=== PATIENT | male | born 1945 | race Caucasian/White ===

== ENCOUNTER 2022-01-13 13:44 | Outpatient (CLI) | payer MEDICARE, BC, SELFPAY ==
[2022-01-13 20:39] LABS: Chloride* 104 mmol/L (96-114); Potassium* 4.5 mmol/L (3.6-5.1); Sodium* 136 mmol/L (135-149)
[2022-01-13 20:42] LABS: Carbon Dioxide* 27 mmol/L (20-32); Creatinine* 1.5 mg/dL (0.5-1.5); Estimated Glomerular Filt Rate 47 ml/min
[2022-01-13 20:43] LABS: Blood Urea Nitrogen* 33 mg/dL (7-30); Calcium* 9.1 mg/dL (8.4-10.6); Glucose* 90 mg/dL (60-115)
== END 2022-01-13 13:45 | disposition home or self-care (01) ==
LOC: NFLDREF 13:45
PROVIDERS: PCP Internal Medicine; Visit Provider Family Medicine
DX: I10 Essential (primary) hypertension (principal); M10.9 Gout, unspecified; I48.91 Unspecified atrial fibrillation
CPT/HCPCS: 80048

== ENCOUNTER 2022-02-18 10:18 | Outpatient (CLI) | payer MEDICARE, BC, SELFPAY ==
[2022-02-18 13:09] LABS: Chloride* 105 mmol/L (96-114)
[2022-02-18 13:10] LABS: Potassium* 4.8 mmol/L (3.6-5.1); Sodium* 137 mmol/L (135-149)
[2022-02-18 13:12] LABS: Alanine Aminotransferase* 15 U/L (4-50); Carbon Dioxide* 26 mmol/L (20-32); Cholesterol* 145 mg/dL (90-199); Creatinine* 1.5 mg/dL (0.5-1.5); Estimated Glomerular Filt Rate 47 ml/min
[2022-02-18 13:13] LABS: Blood Urea Nitrogen* 27 mg/dL (7-30); Calcium* 8.9 mg/dL (8.4-10.6); Glucose* 101 mg/dL (60-115); HDL Cholesterol* 48 mg/dL (>=40); LDL Cholesterol Calculated 85 mg/dL (<100); Triglycerides* 59 mg/dL (40-149)
[2022-02-18 13:42] LABS: PSA Screen* 1.52 ng/mL (0.10-4.00)
== END 2022-02-18 10:19 | disposition home or self-care (01) ==
LOC: NFLDREF 10:19
PROVIDERS: PCP Internal Medicine; Visit Provider Family Medicine
DX: Z00.00 Encounter for general adult medical examination without abnormal findings (principal); I10 Essential (primary) hypertension; N40.0 Benign prostatic hyperplasia without lower urinary tract symptoms; E78.5 Hyperlipidemia, unspecified; Z12.5 Encounter for screening for malignant neoplasm of prostate
CPT/HCPCS: 80048; 80061; 84153; 84460

== ENCOUNTER 2022-05-16 12:06 | Outpatient (CLI) | payer MEDICARE, BC, SELFPAY ==
--- OUTSIDE RECORDS SUMMARY | 2022-05-16 12:17 | XMS_ITS | Encounter Summary ---
:1945 Author Organization [facility] Address [address] [place] [address] Care Team Providers Name Role Phone Elsewhere, Pcp Primary Care Provider Unavailable Reason for Referral Outpatient (Routine) - Closed Specialty Diagnoses / Procedures Referred By Contact Refer red To Contact Diagnoses Bypass Coronary Artery Graft Status Post Renee Drummond M.D. [facility] Procedures DX Chest AP or PA and Lateral 2 Views [address] [place] [phone] Referral ID Status Reason Start Date Expiration Date Visits Requ ested Visits Authorized [id number] Closed 12/18/2021 12/18/2022 1 1 Reason for Visit Outpatient (Routine) - Closed Specialty Diagnoses / Procedures Referred By Contact Refer red To Contact Diagnoses Bypass Coronary Artery Graft Status Post Renee Drummond M.D. [facility] Procedures DX Chest AP or PA and Lateral 2 Views [address] [place] [address] Referral ID Status Reason Start Date Expiration Date Visits Requ ested Visits Authorized [id number] Closed 12/18/2021 12/18/2022 1 1 Encounter Details Date Type Department Care Team Description 03/11/2022 Hospital Encounter Department of Renee Drummond oronary Radiology, Krishan Guzmán M.D. Artery Graft Status Building, in [address] [place], [place] 200 [facility] [address] [place], [place] [phone] (Work) [phone] Social History Tobacco Use Types Packs/Day Years Used Date Smoking Tobacco: Former Smokeless Tobacco: Never Comments: Hasn't smoke since the Alcohol Use Standard Drinks/Week Comments Yes 5 (1 standard drink = 0.6 oz pure alcoho l) 6 drinks per week Alcohol Habits Answer Date Recorded How often do you have a drink containing alcohol? 2-3 times a week 11/08/2021 How many drinks containing alcohol do you have on a 3 or 4 11/08/2021 typical day when you are drinking? How often do you have six or more drinks on one Never 11/08/2021 occasion? Social Isolation Answer Date Recorded In a typical week, how many times do you Once a week 11/08/2021 talk on the phone with family, friends, or neighbors? How often do you get together with friends Three times a wee k 11/08/2021 or relatives? How often do you attend hoahaoism or mandaeism 1 to 4 times per year 11/08/2021 services? Do you belong to any clubs or organizations Yes 11/08/2021 such as hoahaoism groups, unions, fraternal or athletic groups, or school groups? How often do you attend meetings of the More than 4 times pe r year 11/08/2021 clubs or organizations you belong to? Are you now , , , 11/08/2021 , never or living with a partner? Physical Activity Answer Date Recorded On average, how many days per week do you engage in moderate to 6 days 11/08/2021 strenuous exercise (like walking fast, running, jogging, dancing, swimming, biking, or other activities that cause a light or heavy sweat)? On average, how many minutes do you engage in exercise at th is 20 min 11/08/2021 level? Stress Answer Date Recorded Do you feel stress - tense, restless, nervous, or Only a lit tle 11/08/2021 anxious, or unable to sleep at night because your mind is troubled all the time - these days? Financial Resource Strain Answer Date Recorded How hard is it for you to pay for the very basics like Not h marlena at all 11/08/2021 food, housing, medical care, and heating? Intimate Partner Violence Answer Date Recorded Within the last year, have you been afraid of your partner o r No 11/08/2021 ex-partner? Within the last year, have you been humiliated or emotionall y No 11/08/2021 abused in other ways by your partner or ex-partner? Within the last year, have you been kicked, hit, slapped, or No 11/08/2021 otherwise physically hurt by your partner or ex-partner? Within the last year, have you been raped or forced to have any No 11/08/2021 kind of sexual activity by your partner or ex-partner? Food Insecurity Answer Date Recorded Within the past 12 months, you worried that your food would Never true 11/08/2021 run out before you got money to buy more. Within the past 12 months, the food you bought just didn't N ever true 11/08/2021 last and you didn't have money to get more. Transportation Needs Answer Date Recorded In the past 12 months, has lack of transportation kept you f rom No 11/08/2021 medical appointments or from getting medications? In the past 12 months, has lack of transportation kept you f rom No 11/08/2021 meetings, work, or getting things needed for daily living? Housing Stability Answer Date Recorded In the last 12 months, was there a time when you were not ab le No 11/08/2021 to pay the mortgage or rent on time? In the last 12 months, how many places have you lived? 1 11/08/2021 In the last 12 months, was there a time when you did not hav e a No 11/08/[address] or slept in a prison (including now)? Education Answer Date Recorded What is the highest level of school you have completed or 12 th grade 11/08/2021 the highest degree you have received? Sex Assigned at Date Recorded Male 11/08/2021 12:12 PM CDT documented as of this encounter Medications at Time of Discharge Medication Sig Dispensed Refills Start Date End Date acetaminophen (TYLENOL) Take 2 tablets 0 12/09/19 22 500 mg tablet (1,000 mg total) by mouth every 6 (six) hours. aspirin 81 mg chewable Chew 81 mg daily. 0 tablet atorvastatin (LIPITOR) 40 Take 1 tablet by 0 08/27 mg tablet mouth every evening. clopidogreL (PLAVIX) 75 TAKE 1 TABLET BY 30 tablet 0 202112/08/2022 mg tablet MOUTH DAILY colchicine (COLCRYS) 0.6 TAKE ONE-HALF 21 tablet 0 12/09/19 22 12/08/2022 mg tablet TABLET BY MOUTH DAILY isosorbide mononitrate TAKE 1 TABLET BY 30 tablet 0 022 12/08/2022 (IMDUR) 30 mg 24 hr MOUTH DAILY tablet losartan (COZAAR) 100 mg Take 1 tablet (100 100 tablet 3 tablet mg total) by mouth daily. metoprolol succinate Take 25 mg by mouth 0 (TOPROL-XL) 25 mg 24 hr daily. Do not crush tablet or chew. polyethylene glycol Take 1 packet (17 g 0 022 (MIRALAX) 17 gram powder total) by mouth packet daily as needed for constipation. Dissolve each 17 g dose in 240 mLs (8 ounces) of beverage. sennosides-docusate Take 2 tablets by 0 2 sodium (SENOKOT-S) 8.6-50 mouth 2 (two) times mg per tablet a day as needed for constipation. tamsulosin (FLOMAX) 0.4 Take 0.4 mg by 0 09/06/19 17 mg 24 hr capsule mouth every evening. documented as of this encounter Plan of Treatment Not on filedocumented as of this encounter Procedures Procedure Name Priority Date/Time Associated Comments Diagnosis DX CHEST AP OR PA RAD - Routine 03/11/2022 8:15 Bypass Coronary Res ults for this AND LATERAL 2 (most inpatients AM CDT Artery Graft procedure are in VIEWS and all Status Post the results outpatients) section. documented in this encounter Results DX Chest AP or PA and Lateral 2 Views (03/11/2022 8:15 AM CDT) Anatomical Region Laterality Modality Chest, Thoracic RST LOS, Thoracic ARZ LOS, Thoracic N/A Digital Radiography FLA LOS Specimen (Source) Anatomical Collection Method Collection Time Re ceived Time Location / / Volume Laterality 03/11/2022 9:07 AM CDT Impressions 03/11/2022 9:09 AM CDT Since 12/07/2021, the tiny left apical pneumothorax has resolved. No pleural effusion on today's exam. Sternotomy with mediast inal clips. Coronary artery stenting. Mild hypertrophic changes in the spine. Convex right thora cic curve with hypertrophic degenerative changes. Narrative 03/11/2022 9:09 AM CDT EXAM: ??DX CHEST AP OR PA AND LATERAL 2 VIEWS Procedure Note Cipriano Cantrell M.D. - 03/11/2022Form atting of this note might be different from the original. EXAM: DX CHEST AP OR PA AND LATERAL 2 EWS IMPRESSION: Since 12/07/2021, the tiny left apical p neumothorax has resolved. No pleural effusion on today's exam. Sternotomy with mediast inal clips. Coronary artery stenting. Mild hypertrophic changes in the spine. Convex right thora cic curve with hypertrophic degenerative changes. Authorizing Provider Result [facility] SANDY ANGELA documented in this encounter Visit Diagnoses Diagnosis Bypass Coronary Artery Graft Status Post documented in this encounter Additional Health Concerns Assessment Noted Time PHQ-9 Depression Total Score: 10 11/27/2021 1:28 PM CD T documented as of this encounter Care Teams Audio/Visual Manager Relationship Specialty Start Date End Date Elsewhere, Pcp PCP - General 12/05/21 documented as of this encounter
--- OUTSIDE RECORDS SUMMARY | 2022-05-16 12:17 | XMS_ITS | Encounter Summary ---
:1945 Author Organization [facility] Address [address] [place] [address] Care Team Providers Name Role Phone Elsewhere, Pcp Primary Care Provider Unavailable Encounter Details Date Type Department Care Team Description 12/12/2021 Clinical Communication Department of Alissa Mathews Cardiovascular Surgery Dorothy Whaley, in [facility]. [address] [place] [address] [address] [place], [place] [address] [place], [place] [phone] Social History Tobacco Use Types Packs/Day Years Used Date Smoking Tobacco: Former Smokeless Tobacco: Never Alcohol Use Standard Drinks/Week Comments Yes 5 [...] or relatives? How often do you attend jew or amish 1 to 4 times per year 11/08/2021 services? Do you belong to any clubs or organizations Yes 11/08/2021 such as jew groups, unions, fraternal or athletic groups, or [...] place to sleep or slept in a long term (including now)? Education Answer Date Recorded What is the highest level of school you have completed or 12 th grade 11/08/2021 the highest degree you have received? Sex Assigned at Date Recorded Male 11/08/2021 12:12 PM CDT documented as of this encounter Miscellaneous Notes Telephone Encounter - Alissa Mathews P.A.-C., M.S. - 12/12/2021 6:02 PM CDT [id number] PHONE VISIT A phone call care discussion in the setting of the national COVID 19 pandemic was completed consistent with [facility] institutional direction. NAME: Angel Doran : 76 y.o. SUBJECTIVE REASON FOR CALL Palpitations HPI Mr. Angel Doran is a 76 y.o. male s/p coronary artery bypass grafting with Dr. Wiggins on 12/03/21. Comorbidities include: coronary artery disease, hypertension, hyperlipidemia, CKD, former smoker He contacted the medical scientist of Dr. Wiggins wanting to discuss his pulse readings. Of note, he had experienced post-operative atrial fibrillation during his hospitalization and was started on amiodarone. He did convert to SR at the time of dismissal and was sent home with an amiodarone taper. Mr. Doran was anticoagulated with aspirin and plavix, it was decided against further antic oagulation with a DOAC. 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 Continue taking amiodarone taper 2. Keep PCP appointment on 12/13 3. Recommend further rhythm surveillance (with potential Holter monitoring). 4. Recommend starting DOAC and stopping ASA therapy; patient would then need to complete three months of plavix therapy while on the DOAC and then he would switch back to ASA. DOAC length to be determined based on prognosis of atrial fibrillation occurrence. 15 minutes were spent in care discussion and care coordination. Alissa Mathews P.A.-C., M.S. 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
--- OUTSIDE RECORDS SUMMARY | 2022-05-16 12:17 | XMS_ITS | Encounter Summary ---
:1945 Author Organization [facility] Address [address] [place] [address] Care Team Providers Name Role Phone Elsewhere, Pcp Primary Care Provider Unavailable Reason for Visit Reason Comments Pre-visit Intake Encounter Details Date Type Department Care Team Description 03/07/2022 Clinical Communication Visit Review in Pr e-visit Intake [place], [place] [address] [place] [address] Social History Tobacco Use Types Packs/Day Years Used Date Smoking Tobacco: Former Smokeless Tobacco: Never Tobacco Cessation: Counseling Given: Not Answered Comments: Hasn't smoke since the Alcohol Use [...] or relatives? How often do you attend quaker or temple 1 to 4 times per year 11/08/2021 services? Do you belong to any clubs or organizations Yes 11/08/2021 such as quaker groups, unions, fraternal or athletic groups, or [...] minutes do you engage in exercise at is 20 min 11/08/2021 level? Stress Answer [...] place to sleep or slept in a custodial (including now)? Education Answer Date Recorded What is the highest level of school you have completed or 12 th grade 11/08/2021 the highest degree you have received? Sex Assigned at Date Recorded Male 11/08/2021 12:12 PM CDT documented as of this encounter Plan of Treatment Not on filedocumented as of this encounter Visit Diagnoses Not on filedocumented in this encounter Additional Health Concerns Assessment Noted Time PHQ-9 Depression Total Score: 10 11/27/2021 1:28 PM CD T documented as of this encounter Care Teams Crew Director Relationship Specialty Start Date End Date Elsewhere, Pcp PCP - General 12/05/21 documented as of this encounter
--- OUTSIDE RECORDS SUMMARY | 2022-05-16 12:17 | XMS_ITS | Encounter Summary ---
:1945 Author Organization [facility] Address [address] [place] [address] Care Team Providers Name Role Phone Elsewhere, Pcp Primary Care Provider Unavailable Reason for Visit Reason Comments Testing Encounter Details Date Type Department Care Team Description 12/17/2021 Clinical Communication Department of Renee Drummond Cardiovascular Medicine Deja Guzmán in [facility] 200 [facility] [address] [place] [phone] Social History Tobacco Use Types Packs/Day Years [...] or relatives? How often do you attend yazidi or episcopal 1 to 4 times per year 11/08/2021 services? Do you belong to any clubs or organizations Yes 11/08/2021 such as yazidi groups, unions, fraternal or athletic groups, or [...] place to sleep or slept in a long-term (including now)? Education Answer Date Recorded What is the highest level of school you have completed or 12 th grade 11/08/2021 the highest degree you have received? Sex Assigned at Date Recorded Male 11/08/2021 12:12 PM CDT documented as of this encounter Miscellaneous Notes Telephone Encounter - Heather Richards - 12/17/2021 10:48 AM CDT Good morning, Scheduled pt to see you 03/11. This visit will be his 3 month post-cardiac surgery visit. What testing would you like ordered for pt? Thank you, Heather documented in this encounter Plan of Treatment Not on filedocumented as of this encounter Visit Diagnoses Not on filedocumented in this encounter Additional Health Concerns Assessment Noted Time PHQ-9 Depression Total Score: 10 11/27/2021 1:28 PM CD T documented as of this encounter Care Teams Parcel Carrier Relationship Specialty Start Date End Date Elsewhere, Pcp PCP - General 12/05/21 documented as of this encounter
--- OUTSIDE RECORDS SUMMARY | 2022-05-16 12:17 | XMS_ITS | Encounter Summary ---
:1945 Author Organization [facility] Address [address] [place] [address] Care Team Providers Name Role Phone Elsewhere, Pcp Primary Care Provider Unavailable Reason for Visit Reason Comments Post Hospital Follow-up Encounter Details Date Type Department Care Team Description 01/14/2022 Clinical Department of Dario Wiggins [facility] Communication Cardiovascular Surgery Alesia Short Follow-up in [place] [id number] [place] [phone] Social History Tobacco Use Types Packs/Day Years [...] or relatives? How often do you attend sabianist or rastafarian 1 to 4 times per year 11/08/2021 services? Do you belong to any clubs or organizations Yes 11/08/2021 such as sabianist groups, unions, fraternal or athletic groups, or [...] place to sleep or slept in a senior living (including now)? Education Answer Date Recorded What is the highest level of school you have completed or 12 th grade 11/08/2021 the highest degree you have received? Sex Assigned at Date Recorded Male 11/08/2021 12:12 PM CDT documented as of this encounter Miscellaneous Notes Telephone Encounter - Tee Mitchell - 01/14/2022 12:01 PM CDT Angel Doran was called 01/14/22 for the 30 day post cardiac surgery follow-up. Per the patient report, there was no readmissions or procedures that took place within 30 days of dismissal. documented in this encounter Plan of Treatment Not on filedocumented as of this encounter Visit Diagnoses Not on filedocumented in this encounter Additional Health Concerns Assessment Noted Time PHQ-9 Depression Total Score: 10 11/27/2021 1:28 PM CD T documented as of this encounter Care Teams Ground School Instructor Relationship Specialty Start Date End Date Elsewhere, Pcp PCP - General 12/05/21 documented as of this encounter
--- OUTSIDE RECORDS SUMMARY | 2022-05-16 12:17 | XMS_ITS | Encounter Summary ---
:1945 Author Organization [facility] Address [address] [place] [address] Care Team Providers Name Role Phone Elsewhere, Pcp Primary Care Provider Unavailable Encounter Details Date Type Department Care Team Description 01/15/2022 Clinical Communication Department of Brisa Moody Cardiovascular Surgery in , R.N . [place], [place] [address] [facility] [address] [place] [phone] Social History Tobacco Use Types Packs/Day Years [...] or relatives? How often do you attend religion or yazidi 1 to 4 times per year 11/08/2021 services? Do you belong to any clubs or organizations Yes 11/08/2021 such as religion groups, unions, fraternal or athletic groups, or [...] place to sleep or slept in a assisted (including now)? Education Answer Date Recorded What is the highest level of school you have completed or 12 th grade 11/08/2021 the highest degree you have received? Sex Assigned at Date Recorded Male 11/08/2021 12:12 PM CDT documented as of this encounter Miscellaneous Notes Telephone Encounter - Brisa Moody R.N. - 01/15/2022 9:48 AM CDT ----- Message from Mira Dacosta APRN, C.N.P., D.N.P. sent at 01/14/2022 2:56 PM CDT ----- Regarding: FW: Patient has medical questions Can someone please call him and review recovery instructions for golfing, etc... Thank you so much!! ----- Message ----- From: Tee Mitchell Sent: 01/14/2022 12:05 PM CDT To: [facility], # Subject: Patient has medical questions Please contact the patient regarding further medical questions/concerns that I was unable to answer during the 30 day post cardiac surgery follow-up phone call. Mr. Doran is wondering the timeframe of when he can start golfing, performing pushups and chin ups, etc. post surgery. Please call patient to discuss. Tee Mazariegos documented in this encounter Plan of Treatment Not on filedocumented as of this encounter Visit Diagnoses Not on filedocumented in this encounter Additional Health Concerns Assessment Noted Time PHQ-9 Depression Total Score: 10 11/27/2021 1:28 PM CD T documented as of this encounter Care Teams Prepress Operator Relationship Specialty Start Date End Date Elsewhere, Pcp PCP - General 12/05/21 documented as of this encounter
--- OUTSIDE RECORDS SUMMARY | 2022-05-16 12:17 | XMS_ITS | Encounter Summary ---
:1945 Author Organization [facility] Address [address] [place] [address] Care Team Providers Name Role Phone Elsewhere, Pcp Primary Care Provider Unavailable Encounter Details Date Type Department Care Team Description 03/11/2022 Hospital Encounter Department of Renee Drummond oronary Laboratory Medicine Alesia Guzmán Artery Graft Status and Pathology, [address] [place] [address] in [place], [place] [address] [place] [address] [place], [place] (Work) [phone] [phone] Social History Tobacco Use Types Packs/Day Years [...] or relatives? How often do you attend worship or hindu 1 to 4 times per year 11/08/2021 services? Do you belong to any clubs or organizations Yes 11/08/2021 such as worship groups, unions, fraternal or athletic groups, or school groups? How often do you attend meetings of the More than 4 times [facility] year 11/08/2021 clubs or organizations you belong [...] place to sleep or slept in a residential (including now)? Education Answer Date Recorded What [...] MOUTH DAILY colchicine (COLCRYS) 0.6 TAKE ONE-HALF TABLET 21 tablet 0 0 12/08/2021 12/08/2022 mg tablet BY MOUTH DAILY isosorbide mononitrate TAKE 1 TABLET BY 30 tablet 0 022 12/08/2022 (IMDUR) 30 mg 24 hr MOUTH DAILY tablet metoprolol succinate Take 25 mg by mouth [...] tamsulosin (FLOMAX) 0.4 Take 0.4 mg by mouth 0 mg 24 hr capsule every evening. documented as of this encounter Plan of Treatment Not on filedocumented as of this encounter Procedures Procedure Name Priority Date/Time Associated Comments Diagnosis LIPID PANEL, S Routine 03/11/2022 8:01 AM Bypass Coronary Resu lts for this CDT Artery Graft Status procedur e are in Post the results section. CBC WITH DIFFERENTIAL, Routine 03/11/2022 8:01 AM Bypass Coron sharon Results for this B CDT Artery Graft Status procedur e are in Post the results section. COMPREHENSIVE Routine 03/11/2022 8:01 AM Bypass Coronary Resul ts for this METABOLIC PANEL, S/P CDT Artery Graft Status procedure are in Post the results section. documented in this encounter Results (ABNORMAL) Comprehensive Metabolic Panel (03/11/2022 8:01 AM CDT) Analysis Performed At Patho logist Time Signature Potassium, S 4.7 3.6 - 5.2 03/11/2022 DTL mmol/L 9:00 AM CDT Sodium, S 142 135 - 145 03/11/2022 DTL mmol/L 9:00 AM CDT Chloride, S 106 98 - 107 03/11/2022 DTL mmol/L 9:00 AM CDT Bicarbonate, S 27 22 - 29 03/11/2022 DTL mmol/L 9:00 AM CDT Anion Gap 9 7 - 15 03/11/2022 DTL 9:00 AM CDT BUN (Blood Urea 28 (H) 8 - 24 03/11/2022 DTL Nitrogen), S mg/dL 9:00 AM CDT Creatinine 1.83 (H) 0.74 - 03/11/2022 DTL 1.35 mg/dL 9:00 AM CDT Estimated GFR 37 (L) >=60 03/11/2022 DTL (eGFR) mL/min/BSA 9:00 AM CDT Comment: Estimated GFR calculated using the 2020 CKD_EPI creatinine equation. Calcium, Total, S 9.1 8.8 - 10.2 mg/dL 03/11/2022 9:00 AM CDT DTL Glucose, S 85 70 - 140 mg/dL 03/11/2022 9:00 AM CDT D TL Protein, Total, S 5.9 (L) 6.3 - 7.9 g/dL 03/11/2022 9:00 A M CDT DTL Albumin, S 4.1 3.5 - 5.0 g/dL 03/11/2022 9:00 AM CDT D TL Aspartate Aminotransferase 18 8 - 48 U/L 03/11/2022 9 :00 AM CDT DTL (AST), S Alkaline Phosphatase, S 93 40 - 129 U/L 03/11/2022 9: 00 AM CDT DTL Alanine Aminotransferase 16 7 - 55 U/L 03/11/2022 9:0 0 AM CDT DTL (ALT), S Bilirubin, Total, S 0.4 <=1.2 mg/dL 03/11/2022 9:00 AM CDT DTL Specimen Anatomical Collection Method Collection Time Receive d Time (Source) Location / / Volume Laterality Blood (Blood, 03/11/2022 8:01 AM 03/11/20 8:39 Venous) CDT AM CDT Renee Drummond M.D. LAB BLOOD ADD-ON Performing Organization Address City/State/[facility] Code Phon e Number [facility] - [address] [place] [address] [phone] [employer] [place] [employer] [facility] [facility] [place] [address] Laboratories-[address] CBC with Differential, Blood (03/11/2022 8:01 AM CDT) P athologist Signature Hemoglobin 13.4 13.2 - 03/11/2022 DTL 16.6 g/dL 8:48 AM CDT Hematocrit 41.8 38.3 - 03/11/2022 DTL 48.6 % 8:48 AM CDT Erythrocytes 4.58 4.35 - 03/11/2022 DTL 5.65 8:48 AM CDT x10(12)/L MCV 91.3 78.2 - 03/11/2022 DTL 97.9 fL 8:48 AM CDT RBC Distrib Width 14.0 11.8 - 03/11/2022 DTL 14.5 % 8:48 AM CDT Platelet Count 255 135 - 317 03/11/2022 DTL x10(9)/L 8:48 AM CDT Leukocytes 5.5 3.4 - 9.6 03/11/2022 DTL x10(9)/L 8:48 AM CDT Neutrophils 3.30 1.56 - 03/11/2022 DTL 6.45 8:48 AM CDT x10(9)/L Lymphocytes 1.35 0.95 - 03/11/2022 DTL 3.07 8:48 AM CDT x10(9)/L Monocytes 0.57 0.26 - 03/11/2022 DTL 0.81 8:48 AM CDT x10(9)/L Eosinophils 0.21 0.03 - 03/11/2022 DTL 0.48 8:48 AM CDT x10(9)/L Basophils 0.06 0.01 - 03/11/2022 DTL 0.08 8:48 AM CDT x10(9)/L Specimen Anatomical Collection Method Collection Time Receive d Time (Source) Location / / Volume Laterality Blood (Blood, 03/11/2022 8:01 AM 03/11/20 8:25 Venous) CDT AM CDT Renee Drummond M.D. LAB BLOOD ADD-ON Performing Organization Address City/State/ZIP Code Phon e Number [facility] - [address] [place] [phone] [employer] [facility] [facility] [place] [address] Laboratories-[facility] 200 [facility] Lipid Panel (03/11/2022 8:01 AM CDT) P athologist Signature Triglycerides 89 mg/dL 03/11/2022 DTL 9:00 AM CDT Comment: ----REFERENCE VALUE---- Normal: <150 mg/dL Borderline High: 150-199 mg/dL High: 200-499 mg/dL Very High: > or =500 mg/dL Cholesterol, Total 141 mg/dL 03/11/2022 9:00 AM CD T DTL Comment: ----REFERENCE VALUE---- Desirable: < 200 mg/dL Borderline High: 200 - 239 mg/dL High: > or = 240 mg/dL Cholesterol, LDL, Calculated 73 mg/dL 03/11/2022 9:00 AM CDT DTL Comment: ----REFERENCE VALUE---- Desirable: <100 mg/dL Above Desirable: 100-129 mg/dL Borderline High: 130-159 mg/dL High: 160-189 mg/dL Very High: >=190 mg/dL ----ADDITIONAL INFORMATION---- LDL cholesterol calculated using the Nogueira/NIH equation. Cholesterol, HDL, S 51 >=40 mg/dL 03/11/2022 9:00 AM CDT DTL Cholesterol, Non-HDL, Calculated 90 mg/dL 9:00 AM CDT DTL Comment: ----REFERENCE VALUE---- Desirable: <130 mg/dL Above Desirable: 130-159 mg/dL Borderline High: 160-189 mg/dL High: 190-219 mg/dL Very High: > or =220 mg/dL Fasting (8 HR or more) No 03/11/2022 8:39 A M CDT DTL Specimen Anatomical Collection Method Collection Time Receive d Time (Source) Location / / Volume Laterality Blood (Blood, 03/11/2022 8:01 AM 03/11/20 8:39 Venous) CDT AM CDT Renee Drummond M.D. LAB BLOOD ADD-ON Performing Organization Address City/State/ZIP Code Phon e Number [facility] - [facility] [place], [place] [phone] [employer] [facility] [place] [address] Laboratories-[facility] 200 [facility] documented in this encounter Visit Diagnoses Diagnosis Bypass Coronary Artery Graft Status Post documented in this encounter Additional Health Concerns Assessment Noted Time PHQ-9 Depression Total Score: 10 11/27/2021 1:28 PM CD T documented as of this encounter Care Teams Senior Functional Analyst Relationship Specialty Start Date End Date Elsewhere, Pcp PCP - General 12/05/21 documented as of this encounter
--- OUTSIDE RECORDS SUMMARY | 2022-05-16 12:17 | XMS_ITS | Encounter Summary ---
:1945 Author Organization [facility] Address [address] [place] [id number] Care Team Providers Name Role Phone Elsewhere, Pcp Primary Care Provider Unavailable Reason for Visit Reason Comments [facility] communication Encounter Details Date Type Department Care Team Description 03/26/2022 Clinical Department of Renee Drummond RX Communication Cardiovascular Alesia Guzmán (communication) Medicine in [place] [address] [facility] [phone] Social History Tobacco Use Types Packs/Day Years [...] or relatives? How often do you attend shinto or temple 1 to 4 times per year 11/08/2021 services? Do you belong to any clubs or organizations Yes 11/08/2021 such as shinto groups, unions, fraternal or athletic groups, or school groups? How often do you attend meetings of the More than 4 times [facility] year 11/08/2021 clubs or organizations you belong [...] place to sleep or slept in a skilled nursing (including now)? Education Answer Date Recorded What is the highest level of school you have completed or 12 th grade 11/08/2021 the highest degree you have received? Sex Assigned at Date Recorded Male 11/08/2021 12:12 PM CDT documented as of this encounter Miscellaneous Notes Telephone Encounter - Destinee Thompson R.N. - 03/27/2022 3:22 PM CDT T'd up med for Dr. Drummond Telephone Encounter - Hanna Nolasco - 03/26/2022 9:00 AM CDT SUBJECTIVE CHIEF COMPLAINT / REASON FOR CALL [facility] (communication) Contacts Type Contact Phone/Fax 03/26/2022 09:00 AM CDT Phone (Incoming) Angel Doran (Self) [phone] (H) Patient expects communication via portal: No Valid authorization on file: Yes Medication Management Questions to be answered: He was in to see Dr. Drummond on March [address] Drummond wanted him to keep taking the Zetia but did not give a new RX. Patient is requesting a new RX for the Zetia Medication/dose: Zetia 10 mg, 1 a day Pharmacy clarification: [facility] in [place] documented in this encounter Plan of Treatment Not on filedocumented as of this encounter Visit Diagnoses Not on filedocumented in this encounter Additional Health Concerns Assessment Noted Time PHQ-9 Depression Total Score: 10 11/27/2021 1:28 PM CD T documented as of this encounter Care Teams Vp Of Digital Marketing Relationship Specialty Start Date End Date Elsewhere, Pcp PCP - General 12/05/21 documented as of this encounter
--- OUTSIDE RECORDS SUMMARY | 2022-05-16 12:17 | XMS_ITS | Encounter Summary ---
:1945 Author Organization [facility] Address [address] [place] [address] Care Team Providers Name Role Phone Elsewhere, Pcp Primary Care Provider Unavailable Encounter Details Date Type Department Care Team Description 12/12/2021 Clinical Communication Department of Dario Wiggins Cardiovascular Surgery Allan Joseph [place], [place] [address] [facility] [address] [place] [id number] [phone] Social History Tobacco Use Types Packs/Day Years [...] or relatives? How often do you attend anglican or buddhism 1 to 4 times per year 11/08/2021 services? Do you belong to any clubs or organizations Yes 11/08/2021 such as anglican groups, unions, fraternal or athletic groups, or school groups? How often do you attend meetings of the More than 4 times r year 11/08/2021 clubs or organizations you [...] to sleep or slept in a senior care (including now)? Education Answer Date Recorded What is the highest level of school you have completed or 12 th grade 11/08/2021 the highest degree you have received? Sex Assigned at Date Recorded Male 11/08/2021 12:12 PM CDT documented as of this encounter Miscellaneous Notes Telephone Encounter - Eva Banerjee - 12/12/2021 4:24 PM CDT Patient phoned in and would like to sepak to someone from the team regarding his pulse. He states that it is skipping. Please phone him at [phone] documented in this encounter Plan of Treatment Not on filedocumented as of this encounter Visit Diagnoses Not on filedocumented in this encounter Additional Health Concerns Assessment Noted Time PHQ-9 Depression Total Score: 10 11/27/2021 1:28 PM CD T documented as of this encounter Care Teams Clinical Nursing Intern Relationship Specialty Start Date End Date Elsewhere, Pcp PCP - General 12/05/21 documented as of this encounter
--- OUTSIDE RECORDS SUMMARY | 2022-05-16 12:17 | XMS_ITS | Clinical Summary ---
:1945 Author Organization [facility] Address [address] [place] [address] Care Team Providers Name Role Phone Elsewhere, Pcp Primary Care Provider Unavailable Source Comments Patient records contain information from all sites at [facility]. For routine questions regarding patient records, call [phone] during business hours, M-F 8:00 AM - 5:00 PM Central Time. Record requests for emergency care only can be directed to [phone] at any time.[facility] Allergies No known active allergies Medications Medication Sig Dispensed Refills Start Date End Date Status atorvastatin (LIPITOR) Take 1 tablet by 0 09/05/2016 Active 40 mg tablet mouth every evening. tamsulosin (FLOMAX) 0.4 Take 0.4 mg by 0 09/05/2016 Active mg 24 hr capsule mouth every evening. aspirin 81 mg chewable Chew 81 mg daily. 0 Active tablet acetaminophen (TYLENOL) Take 2 tablets 0 12/08/2021 Active 500 mg tablet (1,000 mg total) by mouth every 6 (six) hours. Additional Information Patient taking differently: 1,000 mg oral Every 6 hours PRN, Reported on 03/07/2022 polyethylene glycol Take 1 packet (17 g 0 12/08/2021 Active (MIRALAX) 17 gram total) by mouth daily powder packet as needed for constipation. Dissolve each 17 g dose in 240 mLs (8 ounces) of beverage. sennosides-docusate Take 2 tablets by mouth 0 2021 Active sodium (SENOKOT-S) 2 (two) times a day as 8.6-50 mg per tablet needed for constipation. metoprolol succinate Take 25 mg by mouth 0 Active (TOPROL-XL) 25 mg 24 daily. Do not crush or hr tablet chew. losartan (COZAAR) 100 Take 1 tablet (100 mg 100 tablet 3 03/11 Active mg tablet total) by mouth daily. ezetimibe (ZETIA) 10 Take 1 tablet (10 mg 90 tablet 3 03/27/20 22 Active mg tablet total) by mouth daily. 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 09/2005 Angiogram at [place] left main 20% left anterior descending 80% stent took it down to 40%; distal 20% circumflex 20% Lightheadedness 11/13/2021 Other Chest Pain 11/13/2021 Fatigue 11/13/2021 Coronary Artery Disease (Unspecified) 01/28/2016 Overview: Coronary Artery Disease (CAD) NOS Hypertension 01/28/2016 Overview: Hypertension (HTN) NOS Polyp Colon 05/05/2008 Overview: Formatting of this note might be differe nt from the original. Next colonoscopy 2010 Rhinitis Chronic 07/21/2007 Hypertension NOS 10/18/2002 Coronary Artery Disease With Stable Angina 10/18/2002 Hyperlipidemia On Treatment 10/18/2002 Resolved Problems Problem Noted Date Resolved Date Retention Urinary 12/08/2021 12/08/2021 Preoperative Examination Cardiovascular 11/13/2021 12/05/2021 Encounters Date Type Specialty Care Team Description 03/27/2022 Refill Cardiovascular Destinee Thompson Refill Disease L, R.N. 03/26/2022 Clinical Cardiovascular Renee Drummond RX Communication Disease Alesia Guzmán (communication ) 03/11/2022 Office Visit Cardiovascular Renee Drummondot ic [facility] [place] Coronary Artery Without Angina Pectoris (Primary Dx); Disease Alesia Guzmán Bypass Coronary Artery Graft Status Post; Chronic Kidney Disease (CKD), Stage 3a Glomerular Filtration Rate (GFR) 45 To 59 (HCC); Hyperlipidemia On Treatment; Hypertension An d Chronic Kidney Disease Stage 4 (HCC) 03/11/2022 Hospital Encounter Radiology Renee Drummond Bypass Co chris Guzmán M.D. Artery Graft St [facility] 03/11/2022 Hospital Encounter Laboratory Medicine Renee Drummond By pass Coronary Alesia Guzmán Artery Graft [facility] Post 03/07/2022 Clinical Admitting/Central Pre-visit Intake Communication Scheduling from Last 3 Months Immunizations Name Administration Dates Next Due Influenza Split 04/29/2011, 04/08/2006 PPSV23 04/08/2006 Family History Medical History Relation Name Comments Hypertension Father Jun Doran Arthritis Mother Thang Costello Asthma Mother Thang Costello Rheum arthritis Mother Thang Costello Transient ischemic attack Mother Thang Costello Relation Name Status Comments Father Jun Doran Mother Thang Costello Social History Tobacco Use Types Packs/Day Years Used Date Smoking Tobacco: Former Smokeless Tobacco: Never Tobacco Cessation: Counseling Given: Not Answered Comments: Hasn't smoke since the 1960s Alcohol Use Standard Drinks/Week Comments Yes 5 [...] or relatives? How often do you attend mormonism or islam 1 to 4 times per year 11/08/2021 services? Do you belong to any clubs or organizations Yes 11/08/2021 such as mormonism groups, unions, fraternal or athletic groups, or [...] place to sleep or slept in a [facility] (including now)? Education Answer Date Recorded What is the highest level of school you have completed or 12 th grade 11/08/2021 the highest degree you have received? Sex Assigned at Date Recorded Male 11/08/2021 12:12 PM CDT Last Filed Vital Signs Vital Sign Reading Time Taken Comments Blood Pressure 188/93 03/11/2022 10:38 AM CDT Pulse 46 03/11/2022 10:38 AM CDT Temperature 36.6 ??C (97.9 ??F) 12/08/2021 11:00 AM CDT Respiratory Rate 18 12/08/2021 11:00 AM CDT Oxygen Saturation 98% 12/08/2021 11:00 AM CDT Inhaled Oxygen Concentration - - Weight 89.5 kg (197 lb 6.8 oz) 03/11/2022 10:38 AM CDT Height 181.8 cm (5' 11.58) 03/11/2022 10:38 AM CDT Body Mass Index 27.09 03/11/2022 10:38 AM CDT Plan of Treatment Health Maintenance Due Date Last Done Comments CT Colonography 1945 Cologuard 1945 Hepatitis C Screening 1945 Colonoscopy 02/28/2016 02/27/2011 (Performed elsewhere) Colorectal Cancer Surveillance 02/28/2016 COVID-19 Vaccine (5 - Booster for 01/09/2022 11/14/2021, , Pfizer series) 09/04/2020, Additional history exists Office Visit for Blood Pressure 06/10/2022 03/11/2022 Check / Re-check Creatinine Level 03/11/2023 03/11/2022, 12/08/2021, 12/07/2021, Additional history exists Potassium Level 03/11/2023 03/11/2022, 12/08/2021, 12/07/2021, Additional history exists Sodium Level 03/11/2023 03/11/2022, 12/08/2021, 12/07/2021, Additional history exists DTaP,Tdap,and Td Vaccines (2 - Td 03/28/2023 03/28/2013, , or Tdap) 07/21/2007 Pneumococcal vaccine (65+ years) Completed 02/08/2020, , 04/08/2006, Additional history exists Zoster Vaccines Completed 02/08/2020, 08/06/2019, 05/19/2007 Depression Screening (Annual Completed 11/27/2021 PHQ-2) Fall Risk Screen (Annual) Completed 12/03/2021 Influenza Vaccine Completed 04/03/2022, 04/10/2021, 04/07/2019, Additional history exists Medical Devices Implanted Type Area Tectonophysicist Device Shelf Model / Identifier Expiration Date Ser ial / Lot Cypher Stent 3.5 X 28 Rx - [id number] Cardiac Cordis Implanted: Qty: 1 on 10/02/2005 Stent Description: Device Tectonophysicist - Cordi s Joselito. Device Status Text - [id number]. Cbl Cls Zipfix Tss Strnl Ndl - [id number] Hardware e.g. Bonilla rnum DepApakau [id number] / Implanted: Qty: 1 on 12/03/2021 by Lance Aragon M.D. at [facility] pins/screws/rods / Procedures Procedure Name Priority Date/Time Associated Comments Diagnosis ECG Routine 03/11/2022 9:18 Bypass Coronary Results f or AM CDT Artery Graft this procedure Status Post are in the results section. DX CHEST AP OR PA RAD - Routine 03/11/2022 8:15 Bypass Coronary Res ults for AND LATERAL 2 VIEWS (most inpatients AM CDT Artery Graft this procedure and all Status Post are in the outpatients) results section. COMPREHENSIVE Routine 03/11/2022 8:01 Bypass Coronary Results for METABOLIC PANEL, S/P AM CDT Artery Graft this pr ocedure Status Post are in the results section. CBC WITH Routine 03/11/2022 8:01 Bypass Coronary Results f or DIFFERENTIAL, B AM CDT Artery Graft this procedu re Status Post are in the results section. LIPID PANEL, S Routine 03/11/2022 8:01 Bypass Coronary Results for AM CDT Artery Graft this procedure Status Post are in the results section. from Last 3 Months Results ECG 12 Lead (03/11/2022 9:18 AM CDT) [facility] Method Time Signature Ventricular 52 BPM MUSE Rate ECG/Min ID Interval 184 ms MUSE QRSD Interval 96 ms MUSE QT Interval 500 ms MUSE QTC Interval 465 ms MUSE P [place] 47 degrees MUSE R [place] 48 degrees MUSE T Wave [place] -63 degrees MUSE CODED Atrial MUSE DIAGNOSIS fibrillation Specimen Anatomical Collection Method Collection Time Receive d Time (Source) Location / / Volume Laterality 03/11/2022 9:18 AM 2 9:25 CDT AM CDT Impressions MUSE - 03/11/2022 9:25 AM CDT Sinus bradycardia Premature atrial complexes Nonspecific T wave abnormality When compared with ECG of 07-DEC-2021 05 :29, Sinus rhythm has replaced Atrial fibrill ation Reviewed by RUSH Echols Narrative This result has an attachment that is no t available. Procedure Note Gennaro Young M.D. - 03/11/2022Fo rmatting of this note might be different from the original. IMPRESSION: Sinus bradycardia Premature atrial complexes Nonspecific T wave abnormality When compared with ECG of 07-DEC-2021 05 :29, Sinus rhythm has replaced Atrial fibrill ation Reviewed by RUSH Echols Renee Drummond M.D. ECG ORDERABLES Performing Organization Address City/State/ZIP Code Phon e Number MUSE MUSE NA DX Chest AP or PA and Lateral [...] thora cic curve with hypertrophic degenerative changes. [facility] Lipid Panel (03/11/2022 8:01 AM CDT) athologist Signature Triglycerides 89 mg/dL 03/11/2022 DTL [...] CDT DTL Cholesterol, Non-HDL, Calculated 90 mg/dL 022 9:00 AM CDT DTL Comment: ----REFERENCE VALUE---- [...] Organization Address City/State/ZIP Code Phon e Number [facility] - [address] [place] [address] [address] [place] [address] Laboratories-[address] CBC with Differential, Blood (03/11/2022 8:01 [...] M.D. LAB BLOOD ADD-ON Performing Organization Address City/State/[facility] Code Phon e Number [facility] - [address] [place] [address] [address] [place] [address] Laboratories-[facility] [place] [address] [facility] (ABNORMAL) Comprehensive Metabolic Panel (03/11/2022 8:01 AM [...] AM 03/11/20 8:39 Venous) CDT AM CDT Authorizing Provider Result Yayo Drummond M.D. LAB BLOOD ADD-ON Performing Organization Address City/State/ZIP Code Phon e Number [facility] - [address] [place], [place] [address] [facility] [place] [address] Laboratories-[facility] [place] [address] from Last 3 Months Insurance Payer Benefit Plan Subscriber ID Effective Phone Address Typ e / Group Dates MEDICARE MEDICARE A [id number] 2008-Prese [address] [place] [address] [facility] [id number] 2016-Prese [phone] [address] Indemnity [facility]UE [facility] A nt [phone] [place] [address] (Work) [phone] Advance Directives For more information, please contact: [phone] Latest Code Status on File Code Status Date Activated Date Inactivated Comments Full Code 12/03/2021 3:24 PM 12/08/2021 2:05 PM Question Answer Comments Full Code: Discussed Code Status History Code Status Date Activated Date Inactivated Comments Full Code 12/03/2021 7:03 AM 12/03/2021 3:24 PM Question Answer Comments Full Code: Discussed Care Teams Coal Weigher Relationship Specialty Start Date End Date Elsewhere, Pcp PCP - General 12/05/21
--- OUTSIDE RECORDS SUMMARY | 2022-05-16 12:17 | XMS_ITS | Encounter Summary ---
:1945 Author Organization [facility] Address [address] [place] [address] Care Team Providers Name Role Phone Elsewhere, Pcp Primary Care Provider Unavailable Reason for Visit Reason Comments pain on left side of wound Encounter Details Date Type Department Care Team Description 01/17/2022 Clinical Department of Dario Wiggins pain on left s isaac Communication Cardiovascular Surgery Alesia Short of wound in [address] [facility] [id number] [phone] Social History Tobacco Use Types Packs/Day Years [...] or relatives? How often do you attend catholic or voodoo 1 to 4 times per year 11/08/2021 services? Do you belong to any clubs or organizations Yes 11/08/2021 such as catholic groups, unions, fraternal or athletic groups, or school groups? How often do you attend meetings of the More than 4 times [facility] year 11/08/2021 clubs or organizations [...] this encounter Miscellaneous Notes Telephone Encounter - Davin Hernandez P.A.-C. - 01/20/2022 3:30 PM CDT Subjective: I had a long discussion with . He is status post CABG x3 by Dr. Wiggins on 12/03/2021. His call is regarding pain that he has had since surgery. It is located left of the sternal incision by approximately 2 inches and at the nipple level. The pain is not consistent it comes and goes. He is concerned because it is lasting so long. He stated it feels like a stitch. He is able to push on this area to cause the pain. He still complains of some pain or achiness throughout his sternum when he coughs. He states that his sternal incision is healing nicely no erythema tenderness or drainage. Deniesany pain with movement of his arms or during exercise he is currently going through cardiac rehab. He denies any fever or chills. He denies having any pain on direct palpation of the sternum itself butdid not have any pain in this area with a deep breath. His dismissal chest x-ray reveals 5 sternal wires and with zip ties closure devices per Dr. Wiggins's preference. No obvious retained wires or other materials. . Plan: He has an appointment with his primary care provider over week away in January. Also has a follow-up appointment with his roofer metal in February. I have no good explanation as to what is causing his pain other than postoperative soft tissue healing. [place]. I offered that we could look at it in that it is difficult to assess over the phone. He pressed me further about how serious I thought it was. I told him since he has had the pain since surgery with little change that I would like to be cautious but still watchful. He felt comfortable with this and agreed to call us if anything should change otherwise follow-up with his primary care provider next month. Telephone Encounter - Sera Thapa - 01/17/2022 2:11 PM CDT CHIEF COMPLAINT / REASON FOR CALL No chief complaint on file. Name of caller/relationship to the patient: patient Patient expects communication via portal: No Phone number: [phone] Surgical Date: 12/03/2021 Surgeon: Dr. Wiggins Request topic and what needs to be addressed? Other Questions to be answered: Patient phoned as he wanted to discuss a pain he has had to the left of his sternum since he had surgery, he feels the pain on and off and felt it the whole day yesterday. He feels the same pain at rest. documented in this encounter Plan of Treatment Not on filedocumented as of this encounter Visit Diagnoses Not on filedocumented in this encounter Additional Health Concerns Assessment Noted Time PHQ-9 Depression Total Score: 10 11/27/2021 1:28 PM CD T documented as of this encounter Care Teams Tradeshow Worker Relationship Specialty Start Date End Date Elsewhere, Pcp PCP - General 12/05/21 documented as of this encounter
--- OUTSIDE RECORDS SUMMARY | 2022-05-16 12:17 | XMS_ITS | Encounter Summary ---
:1945 Author Organization [facility] Address [address] [place] [address] Care Team Providers Name Role Phone Elsewhere, Pcp Primary Care Provider Unavailable Encounter Details Date Type Department Care Team Description 12/11/2021 Clinical Communication Department of Urology Santy Arias in [facility] [address] [facility] [address] [place] [phone] Social History Tobacco Use Types Packs/Day Years [...] or relatives? How often do you attend samaritan or baptist 1 to 4 times per year 11/08/2021 services? Do you belong to any clubs or organizations Yes 11/08/2021 such as samaritan groups, unions, fraternal or athletic groups, or [...] place to sleep or slept in a [facility]ci (including now)? Education Answer Date Recorded What is the highest level of school you have completed or 12 th grade 11/08/2021 the highest degree you have received? Sex Assigned at Date Recorded Male 11/08/2021 12:12 PM CDT documented as of this encounter Miscellaneous Notes Telephone Encounter - Ale Kessler R.N. - 12/11/2021 3:26 PM CDT ASSESSMENT Patient calls with concerns of urinary frequency. This is not new for him. He had open heart surgeryon 12/03/21, he states while in the hospital recovering from surgery he was bladder scanned and had residual urine 400-600 mL's and was I&O cathed in the hospital. He states he is waking 5x a night and it is disrupting his sleep. He feels as if his bladder is not getting empty because he is having to urinate often. We discussed that he is currently on Lasix which can increase urine output. He is also on Flomax which he takes at bedtime, he is interested in taking this in the morning thinking this may help him sleep better at night. He denies bladder pain and discomfort, he states he is voiding inlarge amounts, he feels that his bladder is empty immediatly after voiding. He denies dysuria, hematuria, fever, chills, and flank pain. PLAN Will notify Suzette Arias P.A.-C. Of patient concerns and await recommendations. Disposition/Recommendation: self-care managment appropriate at this time, patient encouraged to callback with questions. Information/Education: patient/caller able to teach back. Caller agreeable to plan of care: yes. The following references were used: nursing clinical judgement. Telephone Encounter - Suzette Arias P.A.-C. - 12/11/2021 2:55 PM CDT Please call to discuss. My guess is they have him on diuretics post op. If dysuria they can rule outUTI Telephone Encounter - Mary Ceja - 12/11/2021 2:46 PM CDT Pt is calling regarding the issues he has been having with urinary frequency. He is worried as he just had open heart surgery 12/03. He is requesting a call back to go over his concerns Please call pt back at [phone] Thank you! documented in this encounter Plan of Treatment Not on filedocumented as of this encounter Visit Diagnoses Not on filedocumented in this encounter Additional Health Concerns Assessment Noted Time PHQ-9 Depression Total Score: 10 11/27/2021 1:28 PM CD T documented as of this encounter Care Teams Assistant Superintendent For Curriculum Relationship Specialty Start Date End Date Elsewhere, Pcp PCP - General 12/05/21 documented as of this encounter
--- OUTSIDE RECORDS SUMMARY | 2022-05-16 12:17 | XMS_ITS | Encounter Summary ---
:1945 Author Organization [facility] Address [address] [place] [address] Care Team Providers Name Role Phone Elsewhere, Pcp Primary Care Provider Unavailable Reason for Visit Reason Comments Med Refill Encounter Details Date Type Department Care Team Description 03/27/2022 Refill Department of Cardiovascular Bun ne, Destinee Esteves, RShaniceN. Med Refill Medicine in [place], [place] [address] [facility] [address] [place] [phone] Social History Tobacco Use Types Packs/Day Years [...] or relatives? How often do you attend methodist or mu-ism 1 to 4 times per year 11/08/2021 services? Do you belong to any clubs or organizations Yes 11/08/2021 such as methodist groups, unions, fraternal or athletic groups, or [...] place to sleep or slept in a intermediate (including now)? Education Answer Date Recorded What [...] documented as of this encounter Care Teams Laboratory Apparatus Glass Blower Relationship Specialty Start Date End Date Elsewhere, Pcp PCP - General 12/05/21 documented as of this encounter
--- OUTSIDE RECORDS SUMMARY | 2022-05-16 12:17 | XMS_ITS | Encounter Summary ---
:1945 Author Organization [facility] Address [address] [place] [address] Care Team Providers Name Role Phone Elsewhere, Pcp Primary Care Provider Unavailable Reason for Visit Outpatient (Routine) - Closed Specialty Diagnoses / Procedures Referred By Contact Refer red To Contact Video Medicine Diagnoses Bypass Coronary Artery Graft Status Post Aline Loredo P.A.-C. [place] [address] [place], [place] [phone] Referral ID Status Reason Start Date Expiration Date Visits Requ ested Visits Authorized [id number] Closed 12/05/2021 12/05/2022 1 1 Encounter Details Date Type Department Care Team Description 12/16/2021 Telemedicine Department of Aline Loredo P.A.-C. [address] [place] [phone] Bypass Coronary Cardiovascular Surgery Jhoana Batista P.A.-C. [address] [place] [phone] Artery Graft Status in [facility] Post [address] [place] [address] Social History Tobacco Use Types Packs/Day Years [...] or relatives? How often do you attend scientology or uatsdin 1 to 4 times per year 11/08/2021 services? Do you belong to any clubs or organizations Yes 11/08/2021 such as scientology groups, unions, fraternal or athletic groups, or [...] PM CDT documented as of this encounter Progress Notes Jhoana Batista P.A.-C. - 12/16/2021 10:30 AM CDT WCP-CEXV-JA-FACE VIDEO VISIT A video visit care discussion in the setting of the national COVID 19 pandemic was completed consistent with [facility] institutional direction. Angel Doran : 1945 Visit Date: 12/16/21 Surgical Procedure: CABG x 3 AVALOS to LAD SVG-distal RCA SVG-Ramus Surgeon: Rosalie Surgical Date: 12/03/21 Discharge Date: 12/08/21 SUBJECTIVE HISTORY OF PRESENT ILLNESS Angel Doran is a 76 y.o. male that was scheduled for a video postoperative follow-up visit. Per the hospital discharge summary, Mr. Doran is status post-surgical procedure listed above. Hispostoperative course was as follows: ICU: Following surgery on 12/03, Mr. Angel Doran was admitted to CV surgery ICU intubated on vasoactive infusions. He was weaned from mechanical ventilation and extubated. He had 12 lead ECG showing STelevation in nghia-lateral leads. He endorsed chest discomfort. Echocardiogram revealed no new wallmotion abnormalities with ejection fraction 65-70%. No evidence of pericardial effusion. He is diagnosed with postpericardiotomy syndrome. He was weaned from vasoactive infusions. ?? PCU: Angel Doran transferred to the PCU on 12/04. While on the PCU, he experienced atrial fibrillation with controlled ventricular rates and then would convert to sinus rhythm. At the time of dismissal he remained in SR. Mr. Doran reports that the transition to the outpatient setting has gone well. Incisional pain is well controlled with use of Tylenol. The patient states that the surgical incision is healing well without concerns for infection. He is quite concerned about the large amount of swelling right above his incision. Denies productive cough, fever, chills, night sweats, chest pain, dyspnea, dizziness, palpitations, constipation, or concern for lower extremity edema. The patient has been active and has been gradually progressing activity and is using incentive spirometer. He was having an irregular heart rate and presented to his local provider on 12/13. A 48 holter monitor was done and showed sinus bradycardia. His metoprolol was decreased to 25 mg twice a day. He states he is not getting enough sleep due to frequent urination. However, he states this was a problem prior to surgery and his local provider had recommended he see a Urologist (since [facility] hadn'thelped with that particular issue). Current Medications: ??? acetaminophen (TYLENOL) 500 mg tablet, Take 2 tablets (1,000 mg total) by mouth every 6 (six) hours. ??? amiodarone (PACERONE) 200 mg tablet, Take 1 tablet (200 mg total) by mouth 2 (two) times a day for 4 days, THEN 1 tablet (200 mg total) daily. ??? amLODIPine (NORVASC) 10 mg tablet, Take 1 tablet (10 mg total) by mouth daily. ??? aspirin 81 mg chewable tablet, Chew 81 mg daily. ??? atorvastatin (LIPITOR) 40 mg tablet, Take 1 tablet by mouth every evening. ??? cholecalciferol (VITAMIN D3) 50 mcg (2,000 Unit) tablet, Take 1 tablet by mouth daily. ??? clopidogreL (PLAVIX) 75 mg tablet, Take 1 tablet (75 mg total) by mouth daily. ??? colchicine (COLCRYS) 0.6 mg tablet, Take 0.5 tablets (0.3 mg total) by mouth daily. ??? ezetimibe (ZETIA) 10 mg tablet, Take 1 tablet (10 mg total) by mouth daily. (Patient taking differently: Take 10 mg by mouth every evening.) ??? furosemide (LASIX) 20 mg tablet, Take 1 tablet (20 mg total) by mouth daily for 7 days. ??? isosorbide mononitrate (IMDUR) 30 mg 24 hr tablet, Take 1 tablet (30 mg total) by mouth daily. ??? metoprolol tartrate (LOPRESSOR) 25 mg tablet, Take 1.5 tablets (37.5 mg total) by mouth 2 (two) times a day. ??? polyethylene glycol (MIRALAX) 17 gram powder packet, Take 1 packet (17 g total) by mouth daily as needed for constipation. Dissolve each 17 g dose in 240 mLs (8 ounces) of beverage. ??? sennosides-docusate sodium (SENOKOT-S) 8.6-50 mg per tablet, Take 2 tablets by mouth 2 (two) times a day as needed for constipation. ??? tamsulosin (FLOMAX) 0.4 mg 24 hr capsule, Take 0.4 mg by mouth every evening. ASSESSMENT / PLAN #1 Status post-surgical procedure listed above. Overall, Mr. Doran is recovering well following cardiac surgery. Postoperative recovery expectations were discussed in detail. I have encouraged activity and continued use of the incentive spirometer. Swelling just above the top of the sternal incision: I could visualize his swelling at the base of his neck (no erythema). I explained to the patient that this swelling is common due to soft tissue swelling. I recommended using ice to help reduce the swelling. Because his degree of swelling is quite pronounced, if he has any breathing or swallowing issues he should be seen locally right away. Frequent urination: Patient has finished Lasix course, but continues with frequent urination and is having trouble getting enough sleep because of it. He was having the same problem prior to surgery. I suggested he followthe advice of his local provider and see a Urologist. Diuresis: Patient was discharged on Lasix 20 mg daily for 7 days. Admission weight 92.2 kg. Discharge weight 89.8 kg. 12/13: 89 kg Recommended no furgther diuretic. Anticoagulation recommendations: No anticoagulation required post-operatively. Antiplatelet recommendations: Aspirin 81 mg daily recommended to continue life long for coronary artery disease. Plavix 75 mg daily recommended to continue for 3 months post- operatively for coronary artery bypass graft surgery. Other: Patient may begin cardiac rehab as directed by local rehab clinic. I reviewed medications with Mr. Doran and his daughter. Any refills of medications should come from patient's local primary care provider. Surgical follow up is completed at this time but we remain available should surgical concerns arise.I have answered all questions/concerns to the best of my ability. Thank you for the opportunity to participate in the care of this patient. Jhoana Batista P.A.-C. Consult conducted via real-time audio/video technology by Corazon Kirby in [facility] to the patient in Patient's Home documented in this encounter Plan of Treatment Not on filedocumented as of this encounter Visit Diagnoses Diagnosis Bypass Coronary Artery Graft Status Post documented in this encounter Additional Health Concerns Assessment Noted Time PHQ-9 Depression Total Score: 10 11/27/2021 1:28 PM CD T documented as of this encounter Care Teams Field Services Director Relationship Specialty Start Date End Date Elsewhere, Pcp PCP - General 12/05/21 documented as of this encounter
--- OUTSIDE RECORDS SUMMARY | 2022-05-16 12:17 | XMS_ITS | Encounter Summary ---
:1945 Author Organization [facility] Address [address] [place] [address] Care Team Providers Name Role Phone Elsewhere, Pcp Primary Care Provider Unavailable Reason for Referral Outpatient (Routine) - Closed Specialty Diagnoses / Procedures Referred By Contact Refer red To Contact Diagnoses Bypass Coronary Artery Graft Status Post Renee Drummond M.D. [facility] Procedures ECG 12 [address] [place], [place] [address] Referral ID Status Reason Start Date Expiration Date Visits Requ ested Visits Authorized [id number] Closed 12/18/2021 12/18/2022 1 1 Outpatient (Routine) - Closed Specialty Diagnoses / Procedures Referred By Contact Refer red To Contact Diagnoses Bypass Coronary Artery Graft Status Post Renee Drummond M.D. [facility] Procedures DX Chest AP or PA and Lateral 2 Views [address] [place] [address] Referral ID Status Reason Start Date Expiration Date Visits Requ ested Visits Authorized [id number] Closed 12/18/2021 12/18/2022 1 1 Encounter Details Date Type Department Care Team Description 12/18/2021 Orders Only Department of Renee Drummond Bypass Coronar y Artery Cardiovascular Medicine Deja Guzmán Graft Status Post in [facility] botany technician [address] [facility] (Primary Dx) [address] [place] [phone] Social History Tobacco Use Types Packs/Day Years [...] or relatives? How often do you attend rastafarian or jewish 1 to 4 times per year 11/08/2021 services? Do you belong to any clubs or organizations Yes 11/08/2021 such as rastafarian groups, unions, fraternal or athletic groups, or [...] place to sleep or slept in a nursing home (including now)? Education Answer Date Recorded What is the highest level of school you have completed or 12 th grade 11/08/2021 the highest degree you have received? Sex Assigned at Date Recorded Male 11/08/2021 12:12 PM CDT documented as of this encounter Plan of Treatment Not on filedocumented as of this encounter Results ECG 12 Lead (03/11/2022 9:18 AM CDT) Patholo gist Method Time Signature Ventricular 52 BPM MUSE Rate ECG/Min [place] Interval 184 ms MUSE QRSD Interval 96 ms MUSE QT Interval 500 ms MUSE QTC Interval 465 ms MUSE P [place] 47 degrees MUSE R [place] 48 degrees MUSE T Wave [place] -63 degrees MUSE CODED Atrial MUSE DIAGNOSIS fibrillation Specimen Anatomical Collection Method Collection Time Receive d Time (Source) Location / / Volume Laterality 03/11/2022 9:18 AM 9:25 CDT AM CDT Impressions MUSE - [...] Authorizing Provider Result Yayo LOW DIAGNOSTIC IMAGING PROCE DURES (ABNORMAL) Comprehensive Metabolic Panel (03/11/2022 8:01 AM [...] Organization Address City/State/ZIP Code Phon e Number [facility] - [address] [place] [phone] [facility] [place] [place] [address] Laboratories-[address] CBC with Differential, Blood (03/11/2022 8:01 [...] Organization Address City/State/ZIP Code Phon e Number [facility] - [address] [place] [address] [facility] [place] [place] [address] Laboratories-[facility] [address] [facility] Lipid Panel (03/11/2022 8:01 AM CDT) athologist [...] Organization Address City/State/ZIP Code Phon e Number [facility] - [address] [place], [place] [address] [facility] [place] [place] [address] Laboratories-[facility] [address] documented in this encounter Visit Diagnoses Diagnosis Bypass Coronary Artery Graft Status Post - Primary Bypass Coronary Artery Graft Status Post documented in this encounter Additional Health Concerns Assessment Noted Time PHQ-9 Depression Total Score: 10 11/27/2021 1:28 PM CD T documented as of this encounter Care Teams Anodizer Relationship Specialty Start Date End Date Elsewhere, Pcp PCP - General 12/05/21 documented as of this encounter
--- OUTSIDE RECORDS SUMMARY | 2022-05-16 12:17 | XMS_ITS | Encounter Summary ---
:1945 Author Organization [facility] Address [address] [place] [address] Care Team Providers Name Role Phone Elsewhere, Pcp Primary Care Provider Unavailable Reason for Referral Outpatient (Routine) - Authorized Specialty Diagnoses / Procedures Referred By Contact Refer red To Contact Diagnoses Bypass Coronary Artery Graft Status Post Atherosclerotic [facility] [place] Coronary Artery Without Angina Pectoris Chronic Kidney Disease (CKD), Stage 3a Glomerular Filtration Rate (GFR) 45 To 59 (HCC) Hyperlipidemia On Treatment Renee Drummond M.D. [facility] Hypertension And Chronic Kidney Disease Stage 4 (HCC) [address] Procedures Echo Transthoracic (TTE) [place] [address] Referral ID Status Reason Start Date Expiration Date Visits V isits Requested Authorized [id number] Authorized 03/11/2022 03/11/2023 1 1 Outpatient (Routine) - Authorized Specialty Diagnoses / Procedures Referred By Contact Refer red To Contact Diagnoses Bypass Coronary Artery Graft Status Post Atherosclerotic [facility] [place] Coronary Artery Without Angina Pectoris Chronic Kidney Disease (CKD), Stage 3a Glomerular Filtration Rate (GFR) 45 To 59 (HCC) Hyperlipidemia On Treatment Renee Drummond M.D. [facility] Hypertension And Chronic Kidney Disease Stage 4 (HCC) [address] Procedures ECG 12 [place] [address] Referral ID Status Reason Start Date Expiration Date Visits V isits Requested Authorized [id number] Authorized 03/11/2022 03/11/2023 1 1 Outpatient (Routine) - Authorized Specialty Diagnoses / Procedures Referred By Contact Refer red To Contact Diagnoses Bypass Coronary Artery Graft Status Post Atherosclerotic [facility] [place] Coronary Artery Without Angina Pectoris Chronic Kidney Disease (CKD), Stage 3a Glomerular Filtration Rate (GFR) 45 To 59 (HCC) Hyperlipidemia On Treatment Renee Drummond M.D. [facility] Hypertension And Chronic Kidney Disease Stage 4 (HCC) [address] [facility] Procedures DX Chest AP or PA and Lateral 2 [place] [address] Referral ID Status Reason Start Date Expiration Date Visits V isits Requested Authorized [id number] Authorized 03/11/2022 03/11/2023 1 1 Outpatient (Routine) - Authorized Specialty Diagnoses / Procedures Referred By Contact Refer red To Contact [facility] [address] [place] [address] Referral ID Status Reason Start Date Expiration Date Visits V isits Requested Authorized [id number] Authorized 03/11/2022 03/10/2025 1 1 Reason for Visit Outpatient (Routine) - Closed Specialty Diagnoses / Procedures Referred By Contact Refer red To Contact Cardiovascular Disease Diagnoses Bypass Coronary Artery Graft Status Post Aline Loredo Ukiah Regan tavarez P.A.-C. 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 How often do you attend muslim or catholic 1 to 4 times per year 11/08/2021 services? Do you belong to any clubs or organizations Yes 11/08/2021 such as muslim groups, unions, fraternal or athletic groups, or [...] PM CDT documented as of this encounter Last Filed Vital Signs Vital Sign Reading Time Taken Comments Blood Pressure 188/93 03/11/2022 10:38 AM CDT Pulse 46 03/11/2022 10:38 AM CDT Temperature - - Respiratory Rate - - Oxygen Saturation - - Inhaled Oxygen Concentration - - Weight 89.5 kg (197 lb 6.8 oz) 03/11/2022 10:38 AM CDT Height 181.8 cm (5' 11.58) 03/11/2022 10:38 AM CDT Body Mass Index 27.09 03/11/2022 10:38 AM CDT documented in this encounter Consult Notes Renee Drummond M.D. - 03/11/2022 11:00 AM CDT SUBJECTIVE Referring Provider: Aline Loredo P.A.-C. CHIEF COMPLAINT / REASON FOR CONSULT Post hospital follow-up HISTORY OF PRESENT ILLNESS Angel Doran is a 76 y.o. male who presents to [facility] for follow-up following cardiac surgery at the request of Aline Loredo P.A.-C.. Mr. Doran is a pleasant 76-year-old male who underwent three-vessel coronary artery bypass grafting surgery in November with Dr. Dario Wiggins. He is doing well post hospital discharge. He is participating in cardiac rehabilitation in [place], [place] and finds that helpful. He is resumed driving andis playing golf. Also has resumed daily workouts with sit-ups, pushups and pull-ups. He is having some sternal pain with the pull-ups. Does not have any angina. He has occasional chest wall pain. He isfree of shortness of breath. He does not have any edema. Tolerating his medications well. His blood pressure is running 115- 125 in cardiac rehab. 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) Hyperlipidemia On Treatment Rhinitis Chronic Polyp Colon Nodule Prostate Ischemic Heart Chronic Disease Lightheadedness Other Chest Pain Fatigue Chronic Kidney Disease (CKD), Stage 3a Glomerular Filtration Rate (GFR) 45 To 59 (HCC) Atherosclerotic [facility] [place] Coronary Artery Without Angina Pectoris Atherosclerotic [facility] [place] Coronary Artery With Angina Pectoris (HCC) Postpericardiotomy Syndrome Bypass Coronary Artery Graft Status Post Atrial Fibrillation Paroxysmal (HCC) Postprocedural Pneumothorax Past Medical History: Diagnosis Date BenignProstatic Hyperplasia Localized Cataract Hyperlipidemia Hypertension NOS Polyp Colon SOCIAL HISTORY He is retired and lives at home with his . He is very busy in care home with his grandchildren and with his physical fitness activities including golf and workouts. Social History Tobacco Use Smoking status: Former Smokeless tobacco: Never Tobacco comments: Hasn't smoke since the Substance Use Topics Alcohol use: Yes Alcohol/week: 5.0 standard drinks Types: 5 Shots of liquor per week Comment: 6 drinks per week Family History Problem Relation Age of Onset Transient ischemic attack Mother Arthritis Mother Rheum arthritis Mother Asthma Mother Hypertension Father Current Outpatient Medications: acetaminophen (TYLENOL) 500 mg tablet, Take 2 tablets (1,000 mg total) by mouth every 6 (six) hours. (Patient taking differently: Take 1,000 mg by mouth every 6 (six) hours as needed.), Disp: , Rfl: aspirin 81 mg chewable tablet, Chew 81 mg daily., Disp: , Rfl: atorvastatin (LIPITOR) 40 mg tablet, Take 1 tablet by mouth every evening., Disp: , Rfl: losartan (COZAAR) 100 mg tablet, Take 1 tablet (100 mg total) by mouth daily., Disp: 100 tablet, Rfl: 3 metoprolol succinate (TOPROL-XL) 25 mg 24 hr tablet, Take 25 mg by mouth daily. Do not crush or chew., Disp: , Rfl: polyethylene glycol (MIRALAX) 17 gram powder packet, Take 1 packet (17 g total) by mouth daily as needed for constipation. Dissolve each 17 g dose in 240 mLs (8 ounces) of beverage., Disp: , Rfl: sennosides-docusate sodium (SENOKOT-S) 8.6-50 mg per tablet, Take 2 tablets by mouth 2 (two) times a day as needed for constipation., Disp: , Rfl: tamsulosin (FLOMAX) 0.4 mg 24 hr capsule, Take 0.4 mg by mouth every evening., Disp: , Rfl: No Known Allergies I have reviewed the chart including most recent evaluations and noted the findings. REVIEW OF SYSTEMS Pertinent items are noted in HPI; all other review of systems was negative. OBJECTIVE BP (!) 188/93 (BP Location: Left arm, Patient Position: Sitting, Cuff Size: Regular) Pulse (!) 46 Ht 181.8 cm Wt 89.5 kg BMI 27.09 kg/m?? PHYSICAL EXAMINATION General Appearance: Alert, cooperative, no distress, appears stated age. Eyes: Normal without any redness or drainage. Neck: Supple, symmetrical. Trachea midline. No adenopathy. Carotids 4/4, no bruits; JVP 8 cm, normalwaveform Lungs: Clear to auscultation bilaterally, respirations unlabored. Chest Wall: No tenderness or deformity. Heart: Regular rate and rhythm, S1 normal and S2 normal, no rub or gallop, no appreciable murmur. Abdomen: Soft, nontender. Bowel sounds active all four quadrants. No masses. No organomegaly. Extremities: Extremities normal, atraumatic, no cyanosis or edema. Vessels: No edema appreciated. Peripheral pulses are symmetrical and of normal contour. Skin: Skin color, texture, turgor normal. No rashes or lesions. Psychiatric: Normal mood and cognitive reasoning appear normal. Neurologic: Normal strength and sensation. No obvious weakness. DIAGNOSTICS I have reviewed the patient's current laboratory, imaging, and other diagnostic studies. Pertinent imaging studies have been reviewed and are notable for: ECG: ECG 12 Lead Result Date: 03/11/2022 Sinus bradycardia Premature atrial complexes Nonspecific T wave abnormality When compared with ECG of 07-DEC-2021 05:29, Sinus rhythm has replaced Atrial fibrillation Reviewed by RUSH Echols Chest x-ray: DX Chest AP or PA and Lateral 2 Views Result Date: 03/11/2022 Impression: Since 12/07/2021, the tiny left apical pneumothorax has resolved. No pleural effusion ontoday's exam. Sternotomy with mediastinal clips. Coronary artery stenting. Mild hypertrophic changesin the spine. Convex right thoracic curve with hypertrophic degenerative changes. Labs: Appointment on 03/11/2022 Component Date Value Ventricular Rate ECG/Min 03/11/2022 52 WV Interval 03/11/2022 184 QRSD Interval 03/11/2022 96 QT Interval 03/11/2022 500 QTC Interval 03/11/2022 465 P [place] 03/11/2022 47 R [place] 03/11/2022 48 T Wave [place] 03/11/2022 -63 CODED DIAGNOSIS 03/11/2022 Atrial fibrillation Hospital Outpatient Visit on 03/11/2022 Component Date Value Triglycerides 03/11/2022 89 Cholesterol, Total 03/11/2022 141 Cholesterol, LDL, Calcul* 03/11/2022 73 Cholesterol, HDL, S 03/11/2022 51 Cholesterol, Non-HDL, Ca* 03/11/2022 90 Fasting (8 HR or more) 03/11/2022 No Hemoglobin 03/11/2022 13.4 Hematocrit 03/11/2022 41.8 Erythrocytes 03/11/2022 4.58 MCV 03/11/2022 91.3 RBC Distrib Width 03/11/2022 14.0 Platelet Count 03/11/2022 255 Leukocytes 03/11/2022 5.5 Neutrophils 03/11/2022 3.30 Lymphocytes 03/11/2022 1.35 Monocytes 03/11/2022 0.57 Eosinophils 03/11/2022 0.21 Basophils 03/11/2022 0.06 Potassium, S 03/11/2022 4.7 Sodium, S 03/11/2022 142 Chloride, S 03/11/2022 106 Bicarbonate, S 03/11/2022 27 Anion Gap 03/11/2022 9 BUN (Blood Urea Nitrogen* 03/11/2022 28 (A) Creatinine 03/11/2022 1.83 (A) Estimated GFR (eGFR) 03/11/2022 37 (A) Calcium, Total, S 03/11/2022 9.1 Glucose, S 03/11/2022 85 Protein, Total, S 03/11/2022 5.9 (A) Albumin, S 03/11/2022 4.1 Aspartate Aminotransfera* 03/11/2022 18 Alkaline Phosphatase, S 03/11/2022 93 Alanine Aminotransferase* 03/11/2022 16 Bilirubin, Total, S 03/11/2022 0.4 ASSESSMENT / PLAN #1 Bypass Coronary Artery Graft Status Post #2 Atherosclerotic [facility] [place] Coronary Artery Without Angina Pectoris #3 Chronic Kidney Disease (CKD), Stage 3a Glomerular Filtration Rate (GFR) 45 To 59 (HCC) #4 Hyperlipidemia On Treatment #5 Hypertension And Chronic Kidney Disease Stage 4 (HCC) Mr. Doran is a pleasant 76-year-old male who looks substantially younger than his stated age. He is recovering nicely from his coronary artery bypass graft surgery. He has minimal chest wall pain from the procedure. His cardiac rehab is going well. The measures of his Blood pressure is elevated substantially here today. I am very surprised that his peak systolic reading is 213. This is atypical for him. I am going to increase his losartan from 50mg daily to 100 mg per day. He is in agreement with this plan. He will continue to measure his bloodpressure at home and at the rehab center. I have recommended that he wait an additional 2-3 weeks before resuming his chin ups. I think he is having some sternal pain and the additional time for healing would be beneficial. His lipids remain elevated. I read the operative note where Dr. Wiggins found very diffuse disease. Denise recommended to Mr. Doran that we aim for his LDL cholesterol to be at or below 50 mg/dL for the next several years as a way to stabilize his atherosclerotic cardiovascular disease. The measure of his Current LDL is too high. I would like for him to consider taking ezetimibe or Inclisiran. We discussed the pros and cons of both medications including the potential for side effects and cost. He will discuss this with his daughter, Shanice [place] and let me know which path he wishes to follow. His kidney function appears to have been mildly impaired by the surgical procedure. I explained he should better hydrate himself with more oral intake and that the kidney function may not get better than where we see it today. I am hopeful the increase in losartan will improve kidney function especially as it better treat his hypertension. Questions were answered. I would like to see him back in one year or sooner should he have symptoms. Total Time: 45 minutes Time Counselin minutes documented in this encounter Plan of Treatment Scheduled Orders Name Type Priority Associated Order Schedule Diagnoses DX Chest AP or PA Imaging RAD - Routine Bypass Coronary Expect ed: and Lateral 2 Views (most inpatients Artery Graft 02/27 and all Status Post (Approximate), outpatients) Atherosclerotic Expires: [facility] 06/10/2023 [place] Coronary Artery Without Angina Pectoris Chronic Kidney Disease (CKD), Stage 3a Glomerular Filtration Rate (GFR) 45 To 59 (HCC) Hyperlipidemia On Treatment Hypertension And Chronic Kidney Disease Stage 4 (HCC) ECG 12 Lead ECG Routine Bypass Coronary Expected: Artery Graft 03/11/2023 Status Post (Approximate), Atherosclerotic Expires: Heart Disease [facility] 06/10/2023 [place] Coronary Artery Without Angina Pectoris Chronic Kidney Disease (CKD), Stage 3a Glomerular Filtration Rate (GFR) 45 To 59 (HCC) Hyperlipidemia On Treatment Hypertension And Chronic Kidney Disease Stage 4 (HCC) Echo Transthoracic Echocardiography Routine Bypass Coronary Ex pected: (TTE) Artery Graft 03/11/2023 Status Post (Approximate), Atherosclerotic Expires: Heart Disease Of 06/10/2023 [place] Coronary Artery Without Angina Pectoris Chronic Kidney Disease (CKD), Stage 3a Glomerular Filtration Rate (GFR) 45 To 59 (HCC) Hyperlipidemia On Treatment Hypertension And Chronic Kidney Disease Stage 4 (HCC) AST (Aspartate Lab Routine Bypass Coronary Expected: Aminotransferase) Artery Graft 03/11/2023 Status Post (Approximate), Atherosclerotic Expires: Heart Disease Of 06/10/2023 [place] Coronary Artery Without Angina Pectoris Chronic Kidney Disease (CKD), Stage 3a Glomerular Filtration Rate (GFR) 45 To 59 (HCC) Hyperlipidemia On Treatment Hypertension And Chronic Kidney Disease Stage 4 (HCC) Comprehensive Lab Routine Bypass Coronary Expected: Metabolic Panel Artery Graft 03/11/2023 Status Post (Approximate), Atherosclerotic Expires: Heart Disease Of 06/10/2023 [place] Coronary Artery Without Angina Pectoris Chronic Kidney Disease (CKD), Stage 3a Glomerular Filtration Rate (GFR) 45 To 59 (HCC) Hyperlipidemia On Treatment Hypertension And Chronic Kidney Disease Stage 4 (HCC) Lipid Panel Lab Routine Bypass Coronary Expected: Artery Graft 03/11/2023 Status Post (Approximate), Atherosclerotic Expires: Heart Disease Of 06/10/2023 [place] Coronary Artery Without Angina Pectoris Chronic Kidney Disease (CKD), Stage 3a Glomerular Filtration Rate (GFR) 45 To 59 (HCC) Hyperlipidemia On Treatment Hypertension And Chronic Kidney Disease Stage 4 (HCC) Scheduled Referrals Name Type Priority Associated Order Schedule Diagnoses Cardiovascular Disease Outpatient Referral Routine Expected: office visit (clinic) 2022 General (Approximate), Expires: 06/10/2023 documented as of this encounter Visit Diagnoses Diagnosis Atherosclerotic [facility] [place] Coronary Artery Without Angina Pectoris - Primary Bypass Coronary Artery Graft Status Post Chronic Kidney Disease (CKD), Stage 3a G lomerular Filtration Rate (GFR) 45 To 59 (HCC) Hyperlipidemia On Treatment Hypertension And Chronic Kidney Disease Stage 4 (HCC) documented in this encounter Additional Health Concerns Assessment Noted Time PHQ-9 Depression Total Score: 10 11/27/2021 1:28 PM CD T documented as of this encounter Care Teams Banquet Houseperson Relationship Specialty Start Date End Date Elsewhere, Pcp PCP - General 12/05/21 documented as of this encounter
--- OUTSIDE RECORDS SUMMARY | 2022-05-16 12:18 | XMS_ITS | Encounter Summary ---
:1945 Author Organization [facility] Address [address] [place] [address] Care Team Providers Name Role Phone Elsewhere, Pcp Primary Care Provider Unavailable Encounter Details Date Type Department Care Team Description 12/08/2021 Orders Only [facility], [facility] [address] [place] [address] [address] [place] [phone] (Wo rk) Social History Tobacco Use Types Packs/Day Years [...] or relatives? How often do you attend jehovah's witness or baptism 1 to 4 times per year 11/08/2021 services? Do you belong to any clubs or organizations Yes 11/08/2021 such as jehovah's witness groups, unions, fraternal or athletic groups, or school groups? How often do you attend meetings of the More than 4 times [facility] year 11/08/2021 clubs or organizations you belong [...] place to sleep or slept in a chcf (including now)? Education Answer Date Recorded What [...] documented as of this encounter Care Teams Shadowgraph Operator Relationship Specialty Start Date End Date Elsewhere, Pcp PCP - General 12/05/21 documented as of this encounter
--- OUTSIDE RECORDS SUMMARY | 2022-05-16 12:18 | XMS_ITS | Encounter Summary ---
:1945 Author Organization [facility] Address [address] [place] [address] Care Team Providers Name Role Phone Elsewhere, Pcp Primary Care Provider Unavailable Reason for Referral Outpatient (Routine) - Authorized Specialty Diagnoses / Procedures Referred By Contact Refer red To Contact Diagnoses Bypass Coronary Artery Graft Status Post Dario Wiggins M.D. [address] [place] [phone] Referral ID Status Reason Start Expiration Visits Visits Date Date Requested Authorized [id number] Authorized Continuity of 12/05/2021 12/05/2022 1 1 Care Encounter Details Date Type Department Care Team Description 12/03/2021 - Hospital [facility] Dario Wiggins M.D. [address] [place] [phone] Debility (Primary Dx); 12/08/2021 Encounter Hospital, [facility] Vaughn M.D. [address] [place] [phone] Atherosclerotic Heart Disease Of [place] Coronary Artery Without Angina Pectoris; [facility], [facility] Coronary Artery Disease With Stable Angina (HCC); [facility], Preoperative Examination Cardiovascular; Sixth Floor Bypass Coronary Artery Graft Status Post; [address] [facility] Decline Functional Status; [place], [place] Abnormal Gait Non Orthopedic; [id number] Atherosclerotic Heart Diseas e Of [place] Coronary Artery With Angina Pectoris ([facility]) [phone] Social History Tobacco Use Types Packs/Day Years [...] or relatives? How often do you attend cheondoism or orthodoxy 1 to 4 times per year 11/08/2021 services? Do you belong to any clubs or organizations Yes 11/08/2021 such as cheondoism groups, unions, fraternal or athletic groups, or [...] place to sleep or slept in a correction (including now)? Education Answer Date Recorded What is the highest level of school you have completed or 12 th grade 11/08/2021 the highest degree you have received? Sex Assigned at Date Recorded Male 11/08/2021 12:12 PM CDT documented as of this encounter Last Filed Vital Signs Vital Sign Reading Time Taken Comments Blood Pressure 103/63 12/08/2021 11:00 AM CDT Pulse 63 12/04/2021 7:30 PM CDT Temperature 36.6 ??C (97.9 ??F) 12/08/2021 11:00 AM CDT Respiratory Rate 18 12/08/2021 11:00 AM CDT Oxygen Saturation 98% 12/08/2021 11:00 AM CDT Inhaled Oxygen Concentration - - Weight 89.8 kg (197 lb 15.6 oz) 12/08/2021 1:53 AM CDT Height 182.9 cm (6') 12/03/2021 7:07 AM CDT Body Mass Index 26.85 12/03/2021 7:07 AM CDT documented in this encounter Discharge Summaries Ceci Jaramillo, LIMA, C.N.P., M.S.N. - 12/08/2021 10:15 AM CDT DISCHARGE SUMMARY BRIEF OVERVIEW Discharge Provider: Dario Wiggins M.D. Primary Care Providers: Elsewhere, Pcp (General) No address on file Admission Date: 12/03/2021 Discharge Date 12/08/2021 PRINCIPAL DIAGNOSIS Atherosclerotic Heart Disease Of [place] Coronary Artery Without Angina Pectoris SECONDARY DISCHARGE DIAGNOSES Principal Problem: Atherosclerotic Heart Disease Of [place] Coronary Artery Without Angina Pectoris Active Problems: Hypertension NOS Coronary Artery Disease With Stable Angina (HCC) 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 (HCC) Postprocedural Pneumothorax Resolved Problems: Preoperative Examination Cardiovascular Retention Urinary Surgery Information This Encounter Past Procedures (12/08/2020 to Today) Date Procedures Providers Location 12/03/2021 CORONARY ARTERY BYPASS GRAFT X1, INTERNAL MAMMARY ARTERY., CORONARY ARTERY BYPASS GRAFT X2, VEIN., HARVEST VEIN ENDOSCOPY LOWER EXTREMITY Dario Wiggins M.D.Hosseini, Motaharsadat, M.D. RST ROMB OR DISCHARGE DISPOSITION Home or Self Care [1] ACTIVE ISSUES REQUIRING FOLLOW UP Follow-up recommendations post Cardiac Surgery Follow-up Visit: [facility] via a video visit and Primary Care Provider. CVD office will call patient with appt due to patient waitlisted, provider full for the next 12 weeks. Follow-up Testing: Post-operative testing per the discretion of the PCP or Delivery Driver. Blood Pressure: Metoprolol was initiated and titrated up to 37.5 mg twice daily prior to dismissal. Amlodipine was initiated and titrated up to 10 mg prior to dismissal. [place] [employer] Guidelines for individuals with coronary artery disease recommend the following medications: aspirin, a beta-grzegorz, a statin, and an JOSE ANGEL inhibitor. An JOSE ANGEL inhibitor was not prescribed at dismissal due to PARTH. Please transition amlodipine to lisinopril once PARTH resolved. Arrhythmia: An oral amiodarone taper was initiated for post-operative atrial fibrillation and was prescribed to continue after dismissal. The amiodarone can be discontinued after completion of the taper if no continued issues with atrial fibrillation or per recommendations by the Delivery Driver. Antiplatelet Therapy: Aspirin 81 mg daily recommended to continue life long for coronary artery disease. Plavix 75 mg daily recommended to continue for 3 months post-operatively for coronary artery bypass graft surgery. Diuretics: Lasix 20 mg daily for 7 days was prescribed at dismissal. Continue to assess need for continuation if (increased swelling, weight above pre-op weight, shortness of breath with presence of pleural effusions or vascular congestion on chest x-ray). Potassium replacement was not needed with the diuretic regimen. Other Medications: Imdur 30 mg daily prescribed to continue for 3 months post- operatively for coronary artery bypass graft surgery with use of bilateral mammary arteries or radial grafts. Colchicine 0.3 mg daily for 6 weeks prescribed for postpericardiotomy syndrome. Antibiotics: Post-operative antibiotic regimen completed, no further antibiotic regimen required. Home Medications: Some home medications were not resumed at dismissal. Please see the medication list for continued and discontinued home medications. Home Healthcare Services: No home health services required. Wound Care: Please assess surgical incision sites for healing. Contact [facility] Cardiovascular Surgery [phone] with any concerns. Anticoagulation: No anticoagulation required post-operatively. Cardiac Rehab: Cardiac Rehabilitation Referral Reason for Visit: Cardiovascular Health Clinic consultation for referral to cardiac rehabilitation. Liaison met with the patient/family to discuss cardiac rehabilitation referral. Patient/family was provided with progressive verbal and printed home-going exercise guidelines. Patient/family understands and agrees with the exercise guidelines. 1. Participation in a Phase II cardiac rehabilitation program is recommended. Patient was informed about what cardiac rehabilitation has to offer and why it is beneficial. The plan of care for the rehabilitation program consists of risk factor modification, monitored and supervised exercise and assistance in the recovery process with ongoing education and support. Patient is interested in attending [facility] rehabilitation program. 2. Eligibility: CABG 3. Exceptions/exclusions: None. 4. Referral: Patient agreed with referral to a cardiac rehabilitation program. Please see discharge order and/or letter for program details. 5. Appropriate referral information will be sent to the receiving cardiac rehabilitation program as applicable. Patient provided verbal authorization to send relevant materials to the cardiac rehab program. Patient referred to: [facility] [address] [place] [id number] Recommend that the patient check with insurance company to verify coverage of the cost of cardiac rehabilitation program visits. COVID-19: Due to the current COVID-19 pandemic, the patient was instructed to monitor for any new fever, cough, shortness of breath, sore throat, diarrhea, respiratory distress, or chills or muscle aches. They are to contact [facility] COVID-19 nurse line ([phone]) with any concerns. Reviewed the best measures for reducing the patient risk including: ?? Avoid close contact with anyone who may be exhibiting respiratory symptoms such as coughing and sneezing ?? Maintaining at least 6 feet apart from all other individuals (social distancing) ?? Regular hand washing with soap and water for at least 20 seconds ?? Avoid touching your eyes, nose and mouth ?? Cover your nose and mouth when coughing or sneezing ?? Wear a mask when around other people that properly covers your nose and mouth OUTPATIENT FOLLOWUP [facility] Appointments: Scheduled Appointments 12/16/2021 10:30 AM [facility] Cardiovascular Surgery For appointment details refer to your Patient Appointment Guide. Outside [facility] Appointments: Consults and Follow-ups to Schedule Take a copy of this after visit summary to your appointment(s). [place], [place] December 13, 2021 - Thursday --10:15 AM - Hospital Follow-Up with Dr. Xander Sanchez, in absence of Dr. Arenas (primary care provider), at [facility] You may have outpatient appointments at [facility] that changed during your hospitalization. Refer to your [facility] Patient Visit Guide (PVG) for the most current schedule of appointments and detailed instructions of tests/procedures. Call [phone], if you did not receive an PVG or need to CANCEL any [facility] appointment(s). * Unfortunately Dr. Drummond's ([facility] wind turbine blade repair technician) calendar is full for the next 12 weeks; however, you have been added to the waitlist, and their office will contact you as soon as there is an available opening for a recommended 1 to 3 month post cardiac surgery follow-up visit. Thank you! Contact information for after-discharge care [employer] [address] [address] DISCHARGE MEDICATIONS: Refill need to be obtained from your primary care provider Current Discharge Medication List START taking these medications Details acetaminophen (TYLENOL) 500 mg tablet Take 2 tablets (1,000 mg total) by mouth every 6 (six) hours. amiodarone (PACERONE) 200 mg tablet Take 1 tablet (200 mg total) by mouth 2 (two) times a day for 4 days, THEN 1 tablet (200 mg total) daily. Qty: 38 tablet, Refills: 0 clopidogreL (PLAVIX) 75 mg tablet Take 1 tablet (75 mg total) by mouth daily. Qty: 30 tablet, Refills: 0 furosemide (LASIX) 20 mg tablet Take 1 tablet (20 mg total) by mouth daily for 7 days. Qty: 7 tablet, Refills: 0 isosorbide mononitrate (IMDUR) 30 mg 24 hr tablet Take 1 tablet (30 mg total) by mouth daily. Qty: 30 tablet, Refills: 0 metoprolol tartrate (LOPRESSOR) 25 mg tablet Take 1.5 tablets (37.5 mg total) by mouth 2 (two) timesa day. Qty: 90 tablet, Refills: 0 polyethylene glycol (MIRALAX) 17 gram powder packet Take 1 packet (17 g total) by mouth daily as needed for constipation. Dissolve each 17 g dose in 240 mLs (8 ounces) of beverage. sennosides-docusate sodium (SENOKOT-S) 8.6-50 mg per tablet Take 2 tablets by mouth 2 (two) times a day as needed for constipation. colchicine (COLCRYS) 0.6 mg tablet Take 0.5 tablets (0.3 mg total) by mouth daily. Qty: 21 tablet, Refills: 0 Current Discharge Medication List CONTINUE these medications which have CHANGED Details amLODIPine (NORVASC) 10 mg tablet Take 1 tablet (10 mg total) by mouth daily. Qty: 30 tablet, Refills: 0 Current Discharge Medication List CONTINUE these medications which have NOT CHANGED Details aspirin 81 mg chewable tablet Chew 81 mg daily. atorvastatin (LIPITOR) 40 mg tablet Take 1 tablet by mouth every evening. cholecalciferol (VITAMIN D3) 50 mcg (2,000 Unit) tablet Take 1 tablet by mouth daily. ezetimibe (ZETIA) 10 mg tablet Take 1 tablet (10 mg total) by mouth daily. Qty: 90 tablet, Refills: 3 tamsulosin (FLOMAX) 0.4 mg 24 hr capsule Take 0.4 mg by mouth every evening. Current Discharge Medication List STOP taking these medications losartan (COZAAR) 100 mg tablet Comments: Reason for Stopping: metoprolol succinate (TOPROL-XL) 25 mg 24 hr tablet Comments: Reason for Stopping: mupirocin (BACTROBAN) 2 % ointment Comments: Reason for Stopping: nitroglycerin (NITROSTAT) 0.4 mg SL tablet Comments: Reason for Stopping: traMADol (ULTRAM) 50 mg tablet Comments: Reason for Stopping: DETAILS OF HOSPITAL STAY REASON FOR ADMISSION Coronary Artery Disease With Stable Angina (HCC) Preoperative Examination Cardiovascular 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) HOSPITAL COURSE Mr. Leidy Lagunas is a 76 y.o. male admitted on 12/03/2021 for coronary artery bypass grafting with Dr. Wiggins. Comorbidities include: coronary artery disease, hypertension, hyperlipidemia, CKD, former smoker Hospital Course ICU: Following surgery on 12/03, Mr. Leidy Lagunas was admitted to CV surgery ICU intubated on vasoactive infusions. He was weaned from mechanical ventilation and extubated. He had 12 lead ECG showing STelevation in nghia-lateral leads. He endorsed chest discomfort. Echocardiogram revealed no new wallmotion abnormalities with ejection fraction 65-70%. No evidence of pericardial effusion. He is diagnosed with postpericardiotomy syndrome. He was weaned from vasoactive infusions. PCU: Leidy Lagunas transferred to the PCU on 12/04. While on the PCU, he experienced atrial fibrillation with controlled ventricular rates and then would convert to sinus rhythm. At the time of dismissal he remained in SR. SURGICAL PROCEDURE(S) CABG x 3 12/03/21 AVALOS to LAD SVG-distal RCA SVG-Ramus Provider Role Dario Wiggins M.D. Primary Lance Hearn M.D. Affirmative Action Specialist Dismissal Vitals: Admission Weight: 92.2 kg Blood pressure 147/78, pulse 63, temperature 36.7 ??C, temperature source Oral, resp. rate 15, height 182.9 cm, weight 89.8 kg, SpO2 94 %. PHYSICAL EXAM: General: Alert and oriented. No apparent distress. Heart: Regular rate and rhythm, no murmurs or rubs noted. Lungs: Clear to auscultation bilaterally. Abdomen: Soft, nontender. Extremities: Distal pulses intact. No edema noted bilaterally. Incision: Wound approximated, clean, dry, and intact. No erythema or other clinical signs of infection. Sternum stable IMAGING DX Chest AP or PA and Lateral 2 Views Result Date: 12/06/2021 Impression: Comparison is made to multiple prior studies. Interval removal of right IJ CVC, left basilar chest tube, and mediastinal drains. Trace left apical and lateral pneumothorax. No discernible right pneumothorax or midline shift. Small residual left pleural effusion. Stable cardiac silhouette size. Sternotomy and mediastinal clips. DX Chest Portable 1 View Result Date: 12/07/2021 Impression: Persistent tiny left apical pneumothorax compared to 12/06/2021. Tiny bilateral pleural effusions. Sternotomy with mediastinal clips. Enlarged cardiac silhouette. DX Abdomen Portable Anterior Posterior 1 View Result Date: 12/06/2021 Impression: Normal bowel gas pattern. No radiographic findings of obstruction. Degenerative arthritis lumbar spine. Sternotomy. ECG ECG 12 Lead Result Date: 12/07/2021 Atrial fibrillation Nonspecific T wave abnormality When compared with ECG of 03-DEC-2021 21:14, Atrial fibrillation has replaced Sinus rhythm ST no longer elevated in Anterolateral leads Nonspecific T wave abnormality now evident in Lateral leads Reviewed by RUSH Alford ECG 12 Lead Result Date: 12/04/2021 Normal sinus rhythm Minimal voltage criteria for LVH, may be normal variant Cannot rule out Inferior infarct slight NH depression ST elevation in Anterolateral leads (concave) , consider acute ischemia versus pericarditis When compared with ECG of 02-DEC-2021 09:49, ST elevation in Anterolateral leads is now present Reviewed by RUSH Blanco Emergent Criteria: Communicated to RN 03-Dec-2021 20:[address] elevation in Anterolateral leads Revised Report ECG 12 Lead Result Date: 12/03/2021 Normal sinus rhythm Cannot rule out Inferior infarct ST elevation in Anterolateral leads When compared with ECG of 03-DEC-2021 20:31, No significant change was found Reviewed by RUSH Blanco LABS Recent Results (from the past 24 hour(s)) Basic Metabolic Panel Collection Time: 12/08/21 5:28 AM Result Value Potassium, S 4.2 Sodium, S 135 Chloride, S 102 Bicarbonate, S 25 Anion Gap 8 BUN (Blood Urea Nitrogen), S 24 Creatinine, S 1.38 (H) eGFR-Non Black/ 49 (L) eGFR-Black/ 56 (L) Calcium, Total, S 8.0 (L) Glucose, S 99 CBC without Differential Collection Time: 12/08/21 5:28 AM Result Value Hemoglobin 10.7 (L) Hematocrit 31.6 (L) Erythrocytes 3.59 (L) MCV 88.0 RBC Distrib Width 12.8 Platelet Count 191 Leukocytes 6.1 PATHOLOGY Recent Results (from the past 720 hour(s)) Dermatopathology Status: None Result Value Report electronically signed by Deandra Ellis M.D. Gross Description Received in formalin labeled with the patient's name, medical record number, and right nasal ala is a 0.7 x 0.6 x 0.1 cm pale byrd skin shave biopsy. There is a 0.4 x 0.4 cm pale byrd-brown, pigmented lesion with irregular borders eccentrically located on the skin surface. Specimen is bisected and submitted entirely in cassette A1. Grossed by KAREN. Interpetation FINAL DIAGNOSIS A. Right nasal ala, Skin shave biopsy: Basal cell carcinoma, involving biopsy border CONDITION AT DISCHARGE stable Time spent on coordinating discharge was greater than 30 minutes. Discharge instructions were provided to the patient and caregiver(s). documented in this encounter Discharge Instructions Discharge InstructionsTee Mitchell - 12/05/2021 11:53 AM CDT You were discharged from the [facility] Cardiovascular Surgery - [facility] Service. Please identify this service name if you call with questions after hospitalization. AttachmentsThe following attachments cannot be sent through Care Everywhere. Acetaminophen (By mouth) ([facility])Amiodarone (By mouth) ([facility])Clopidogrel (By mouth) ([facility])Furosemide (By mouth) ([facility])Isosorbide Mononitrate (By mouth) ([facility])Polyethylene Glycol 3350 (By mouth) ([facility])Colchicine (By mouth) ([facility])Senna (By mouth) ([facility])documented in this encounter Medications at Time of Discharge Medication Sig Dispensed Refills Start Date End Date acetaminophen (TYLENOL) Take 2 tablets 0 12/09/19 22 500 mg tablet (1,000 mg total) by mouth every 6 (six) hours. aspirin 81 mg chewable Chew 81 mg daily. 0 tablet atorvastatin (LIPITOR) 40 Take 1 tablet by 0 08/27 mg tablet mouth every evening. polyethylene glycol Take 1 packet (17 g 0 022 (MIRALAX) 17 gram powder total) by mouth packet daily as needed for constipation. Dissolve each 17 g dose in 240 mLs (8 ounces) of beverage. sennosides-docusate sodium Take 2 tablets by 0 (SENOKOT-S) 8.6-50 mg per mouth 2 (two) times tablet a day as needed for constipation. tamsulosin (FLOMAX) 0.4 mg Take 0.4 mg by 0 09/05 24 hr capsule mouth every evening. clopidogreL (PLAVIX) 75 mg TAKE 1 TABLET BY 30 tablet 0 05/202212/08/2022 tablet MOUTH DAILY colchicine (COLCRYS) 0.6 TAKE ONE-HALF 21 tablet 0 12/09/19 22 12/08/2022 mg tablet TABLET BY MOUTH DAILY isosorbide mononitrate TAKE 1 TABLET BY 30 tablet 0 022 12/08/2022 (IMDUR) 30 mg 24 hr tablet MOUTH DAILY amiodarone (PACERONE) 200 Take 1 tablet (200 38 tablet 0 03/07/2022 mg tablet mg total) by mouth 2 (two) times a day for 4 days, THEN 1 tablet (200 mg total) daily. amLODIPine (NORVASC) 10 mg Take 1 tablet (10 30 tablet 0 2 03/07/2022 tablet mg total) by mouth daily. cholecalciferol (VITAMIN Take 1 tablet by 0 06/0903/07/2022 D3) 50 mcg (2,000 Unit) mouth daily. tablet clopidogreL (PLAVIX) 75 mg Take 1 tablet (75 30 tablet 0 12/09/2021 tablet mg total) by mouth daily. ezetimibe (ZETIA) 10 mg Take 1 tablet (10 90 tablet 3 11/0403/07/2022 tablet mg total) by mouth daily. furosemide (LASIX) 20 mg Take 1 tablet (20 7 tablet 0 11/2703/07/2022 tablet mg total) by mouth daily for 7 days. isosorbide mononitrate Take 1 tablet (30 30 tablet 0 2 12/09/2021 (IMDUR) 30 mg 24 hr tablet mg total) by mouth daily. metoprolol tartrate Take 1.5 tablets 90 tablet 0 12/08/2021 03/07/2022 (LOPRESSOR) 25 mg tablet (37.5 mg total) by mouth 2 (two) times a day. documented as of this encounter Progress Notes Rehana Headley O.T. - 12/08/2021 12:00 PM CDT 12/09/21 1233 Plan Plan (Patient discharged home. Patient has completed therapy; however will continue cardiac rehab back home. Goals set during this episode of care have been met. Adaptive equipment will be obtained by the patient/family based on recommendations made.) Rehana Headley O.T. Neal Laws P.T., D.PShaniceTShanice - 12/08/2021 12:00 PM CDT 12/20/21 1547 Plan PT Plan Comments Patient discharged home. Patient has completed therapy. Goals set during this episode of care have been partially met. Adaptive equipment was issued to patient during this episode of care based on skilled need Patricia Thomas C.O.T.A., O.T.May - 12/08/2021 9:41 AM CDT Occupational Therapy Acute Hospital Inpatient Treatment SUBJECTIVE Patient's Name: Leidyorlando Lagunas Referring/Attending Provider: Dario Wiggins M.D. Medical Diagnosis: Coronary Artery Disease With Stable Angina (HCC) [I25.118] Preoperative Examination Cardiovascular [Z01.810] Atherosclerotic Heart Disease Of [place] Coronary Artery Without Angina Pectoris [I25.10] Atherosclerotic Heart Disease Of [place] Coronary Artery With Angina Pectoris (HCC) [I25.119] Reason for Referral: Occupational Therapy Evaluation and Treatment General Acute OT: Cardiac Onset Date: 12/03/21 Payor: MEDICARE / Plan: MEDICARE A AND B / Product Type: Medicare / History of Present Illness:Pt presenting s/p CABGx3. Family/Caregiver Present: Yes (daughter, and ) Patient/Caregiver Goals: None stated Patient Comments: Patient present in bedside chair with family; agreeable to OT. Patient reports no pain at this time. Fall Risk (65 and older) Fall in the last 12 months: No Are you fearful of falling?: Yes Precautions Other Precautions: fall risk, sternal precautions OBJECTIVE Leidy's NOHARM modalities were an educational focus, demonstrated and discussed during their therapysession. Vitals monitored throughout session; within normal ranges. ADL Comments ADL Comments: Patient recalled sternal precautions, education on adaptive equipment needs/ follow upon shower bench, and toileting. Patient education on utilizing shower shoes, and oral cares. Patientdischarging home today with support from family; no further concerns. Patient reports completing grooming today without assistance; except for line management; which is removed. Education provided today: Education given stated above Team Communication: Patient's nurse was contacted and patient's status was discussed Outcome Measures [facility] Inpatient Short Form: Putting on and taking off regular lower body clothing?: None Putting on and taking off regular upper body clothing?: None Taking care of personal grooming such as brushing teeth?: None (Seated) Bathing (including washing, rinsing, drying)?: A Little Toileting, which includes using toilet, bedpan, or urinal?: None Eating meals?: None Daily Activities Raw Score (max 24): 23 Daily Activities Standardized Score: 51.12 Interpretation: Clinicians answer the [facility] Inpatient Short Form based on observed patient activityand/or clinical judgement (ie. patient can be scored without physically performing each activity) Based on scoring guidelines using the raw score value: Those going to home had an average score at or above 18 Those going to facility had an average score at or below 17 Patient was left in bedside chair at end of session with call light in reach, all needs met and questions answered. Contact monitoring: PPE used during therapy: Therapist was wearing the following PPE throughout entire session: surgicalmask, eye protection and gloves Patient was wearing a mask during therapy session: no Family member/caregiver present was wearing a mask: yes Assessment Discharge Therapy Needs - OT: Ongoing skilled occupational therapy (Pending hospital course) Skilled therapy can include occupational therapy provided by home health, outpatient clinic, or a post-acute facility. The location of these services is determined by the patient's care team in partnership with patient/family. Level of Care Needed - OT: Assistance with shopping, Assistance with housekeeping, Assistance with financial operations consultant, Assistance with meal preparation Recommended Adaptive Equipment - OT: Shower chair with back, Transfer tub bench, Toilet safety frame Barriers to Discharge Home: Current functional status, Fall risk Clinical Impression: Patient overall, is progressing well towards OT goals; demonstrates good standing tolerance, safety with transfers, memory recall on energy conservation strategies, and sternal precautions. Therapist provided continued education on walker management, sternal precautions, and adaptive equipment needs for homegoing. Patient will receive some assistance at home from caregiver and daughter; demonstrates great family support. Patient discharging home on this date; and has been given a list of durable medical equipment recommendations and safety for adhering to precautions. Patient Rehab potential: Mr. Lagunas has good potential to achieve established occupational therapy goals within the time frame outlined below. Functional Goals: OT Goal #1: Patient will complete toileting with modified independence in order to promote return toprior level of function. OT Goal #1 Status: Achieved OT Goal #2: Patient will complete standing grooming with modified independence to promote return to prior level of function. OT Goal #2 Status: Ongoing OT Goal #3: Patient will complete lower body dressing with modified independence to promote return to prior level of function. OT Goal #3 Status: Achieved OT Goal #4: Patient will verbalize sternal precautions independently when prompted to promote safe participation in daily tasks. OT Goal #4 Status: Achieved Progress: Progressing toward goals Plan Occupational Therapy Attestation Statement: Patient agrees with the plan of care and goals. OT Frequency: OT Amount: 1 visit per day OT Frequency: 5 times per week OT Inpatient Duration : Until goals are met or hospital discharge Requires Inpatient OT Follow-Up: No OT - Next Inpatient Appointment: 12/08/21 Plan: Continue with current plan OT Plan Comments: Next session:discharging today addressed all concerns Treatment interventions may include: Treatment Interventions: Therapeutic exercise, Therapeutic functional activity, Self-care/home management MENDOZA Visit Trackin/6 Billing: Time Spent with Patient Therapeutic Interventions Home Management Training (min): 21 min Time Tracking Total Timed Units (min): 21 min Total Treatment Time (min): 21 min Daphne MarcelinoTImani., O.T.A. Lindsey Box P.T.May - 12/07/2021 3:34 PM CDT Physical Therapy Inpatient Treatment Note SUBJECTIVE Patient's Name: Leidy Lagunas Referring/Attending: Dario Wiggins M.D. Medical Diagnosis: Coronary Artery Disease With Stable Angina (HCC) [I25.118] Preoperative Examination Cardiovascular [Z01.810] Atherosclerotic Heart Disease Of [place] Coronary Artery Without Angina Pectoris [I25.10] Atherosclerotic Heart Disease [place] Coronary Artery With Angina Pectoris (HCC) [I25.119] Reason for Referral: PT Evaluate and Treat Cardiac PT Onset Date: 12/03/21 Payor: MEDICARE / Plan: MEDICARE A AND B / Product Type: Medicare / History of Present Illness: Pt presenting s/p CABGx3. Family/Caregiver Present: Yes (spouse) Patient/Caregiver Goals: None stated Patient Comments: Patient motivated and eagar to participate in therapy. Stated he may dismiss tomorrow morning Precautions Other Precautions: fall risk, sternal precautions Fall Risk (65 and older) Fall in the last 12 months: No Are you fearful of falling?: Yes OBJECTIVE Leidy's NOHARM modalities were demonstrated during their therapy session. Vitals monitored throughout session; within normal ranges. Treatment consisted of: Bed Mobility - Supine to Sit Level of Assistance: Modified Independent Device: Head of bed elevated Cuing: Verbal Bed Mobility - Sit to Supine Level of Assistance: Modified Independent Device: Head of bed elevated Cuing: Verbal Sit to Stand Transfers # of Assistants: 1 Transfer Surface: Bed Transfer Equipment: Gait belt, Front wheeled walker Level of Assistance: Modified Independent, Supervision/set-up Assessment/Delivery: Assessed, Facilitated Stand to Sit Transfers # of Assistants: 1 Transfer Surface: Bed Transfer Equipment: Gait belt, Front wheeled walker Level of Assistance: Modified independent, Supervision/set-up Assessment/Delivery: Assessed, Instructed, Therapist assisted, Facilitated Bed, Chair, Wheelchair Transfers Transfer Surface: Bed Transfer Approach: To and from, Ambulating Transfer Equipment: Front wheeled walker Level of Assistance: Supervision/ Set-up Assessment/Delivery: Assessed Gait Assessment/Training Distance (m): 46.2 m Surface: Even, Smooth/hard Device: Gait belt, Front-wheeled walker # of Assistants: 1 Level of Assistance: Supervision/Set-up Assessment of Gait: Good pacing and sequencing with walker and walker placement. Cueing Provided: Verbal Response: No adverse symptoms noted or reported by pt -tolerated well. denies shortness of breath, fatigue and/or weakness. SPO2>90% Stairs/Curb # Stairs: 10 Rails: 1 Device: Gait belt # of Assistants: 1 Level of Assistance: Contact guard assistance, Supervision/Set-up Stair Navigation Pattern-Ascending: Step-to pattern Stair Navigation Lead Foot-Ascending: Right Stair Navigation Pattern-Descending: Step-to pattern Stair Navigation Lead Foot-Descending: Left Cueing Provided: Verbal Training/Intervention: step to pattern to conserve energy Response: Good response - no loss of balance or instability. Education provided this session: placing a stool on landing in between flights of stairs at home to rest. The following coordination of care occurred today: InBasket was sent regarding DME recommendation for 2 wheeled walker Patient's nurse was contacted and patient's status was discussed Patient was left in bed at end of session with call light in reach, all needs met and questions answered. Contact monitoring: PPE used during therapy: Therapist was wearing the following PPE throughout entire session: surgicalmask, eye protection and gloves Patient was wearing a mask during therapy session: mask in hallway Outcome Measures [facility] Inpatient Short Form: -[facility] Basic Mobility (V.2) How much help from another person do you currently need???If the patient hasn't done an activity recently, how much help from another person do you think he/she would need if he/she tried? 1. Turning from your back to your side while in a flat bed without using bedrails?: None 2. Moving from lying on your back to sitting on the side of a flat bed without using bedrails?: A Little 3. Moving to and from a bed to a chair (including a wheelchair)?: None 4. Standing up from a chair using your arms (e.g., wheelchair, or bedside chair)?: None 5. To walk in hospital room?: None 6. Climbing 3-5 steps with a railing?: A Little -[facility] Basic Mobility (V.2) Raw Score: 22 -[facility] Basic Mobility (V.2) Standardized Score: 47.4 Interpretation: Clinicians answer the -[facility] Inpatient Short Form based on observed patient activityand/or clinical judgement (ie. patient can be scored without physically performing each activity) Based on scoring guidelines using the raw score value: Those going to home had an average score at or above 18 Those going to facility had an average score at or below 17 Assessment Discharge Therapy Needs - PT: Ongoing skilled physical therapy (Will attend cardiac rehab program) Skilled therapy can include physical therapy provided by home health, outpatient clinic, or a post-acute facility. The location of these services is determined by the patient's care team in partnershipwith patient/family. Level of Care Needed - PT: Assistance with stairs Equipment Recommended - PT: Front-wheeled walker Therapist sent in basket to provider Barriers to Discharge Home: Current functional status, Fall risk From a physical therapy perspective, the level of care above has been recommended for Mr. Lagunas after hospital discharge. This level of care is based on his functional abilities during today's session. This may change throughout the hospital course and will be updated as appropriate. Clinical Impression of today's session: Leidy has made very good progress toward his therapy goals thus far. He is able to demonstrate safe stair negotiation at contact to supervision level and moderate independence with bed mobility. He does have a bed at home that inclines and declines for head and feet therefore he used this hospital bed feature for practicing. Leidy is compliant with his sternal precautions. Spouse was present for caregiver training. Therapist sent in basket to provider requesting DURABLE MEDICAL EQUIPMENT - 2 wheeledwalker to be delivered to Leidy's room prior to discharge. Rehab potential: Mr. Lagunas has Good potential to achieve established physical therapy goals withinthe time frame outlined below. Progress: Progressing toward goals Functional Goals and Timeframes: PT Inpatient Goals PT Goal #1: Pt will transfer supine<>sit supervision in order to decrease burden of care PT Goal #1 Status: Achieved PT Goal #2: Pt will transfer sit<>stand supervision with least restrictive assistive device inorder to increase functional independence PT Goal #2 Status: Achieved PT Goal #3: Pt will ambulate 40m mod I with least restrictive assistive device in order to improve functional mobility PT Goal #3 Status: Progressing PT Goal #4: Pt will negotiate 1 step no hand rail and 10-12 with hand rail in order to navigate homeenvironment PT Goal #4 Status: Progressing Plan Treatment Plan: Plan: Continue with current plan PT Frequency: PT Amount: 1 visit per day PT Frequency: 5 times per week PT Inpatient Duration : Until goals are met or hospital discharge Requires Inpatient Follow-Up: Yes PT - Next Inpatient Appointment: 12/09/21 PT Plan Comments: assess bed mobility; progress transfers, LE strengthening exercises, and gait training as pt able; stair training prior to discharge Treatment interventions may include: Treatment/Interventions: Therapeutic exercise, Therapeutic functional activity, Neuromuscular re-education, Gait training, Self-care/home management STATISTICS TEACHER Visit Trackin Billing: Time Spent with Patient Therapeutic Interventions Gait Training (min): 16 min Therapeutic Activity (min): 13 min Time Tracking Total Timed Units (min): 29 min Total Treatment Time (min): 29 min Lindsey Box P.T.A. Patricia Thomas C.O.T.A., O.T.A. - 12/07/2021 10:50 AM CDT Occupational Therapy Acute Hospital Inpatient Treatment SUBJECTIVE Patient's Name: Leidy Lagunas Referring/Attending Provider: Dario Wiggins M.D. Medical Diagnosis: Coronary Artery Disease With Stable Angina (HCC) [I25.118] Preoperative Examination Cardiovascular [Z01.810] Atherosclerotic Heart Disease Of [place] Coronary Artery Without Angina Pectoris [I25.10] Atherosclerotic Heart Disease [place] Coronary Artery With Angina Pectoris (HCC) [I25.119] Reason for Referral: Occupational Therapy Evaluation and Treatment General Acute OT: Cardiac Onset Date: 12/03/21 Payor: MEDICARE / Plan: MEDICARE A AND B / Product Type: Medicare / History of Present Illness:Pt presenting s/p CABGx3. Family/Caregiver Present: Yes (daughter, and ) Patient/Caregiver Goals: None stated Patient Comments: Patient present in bedside chair with family; agreeable to OT. Patient reports no pain at this time. Fall Risk (65 and older) Fall in the last 12 months: No Are you fearful of falling?: Yes Precautions Other Precautions: fall risk OBJECTIVE Leidy's NOHARM modalities were an educational focus, demonstrated and discussed during their therapysession. Vitals stable per chart review. LE Dressing LE Dressing Location: Chair LE Dressing Delivery: Assessed LE Dressing Items Included: Socks, Pants LE Dressing Level of Assistance: Modified independent LE Dressing Comments: Patient donned and doffed lower body clothing requiring no physical assistance; set up only. Toileting Toileting Location: Toilet Toileting Delivery: Assessed Toileting Level of Assistance: Modified independent Toileting Comments: Patient completed toileting requiring no physical assistance with use of front wheeled walker. Patient education on use of walker for support; when urinating standing up. Adaptive Interventions Adaptive Intervention/Education: Patient was educated on sternal precautions and how to apply those precautions to activities of daily living and functional transfers. ADL Comments ADL Comments: Patient education on lower body dressing, adaptive equipment for showering, and toileting. Education on sternal incision. Sit to Stand Transfers # of Assistants: 1 Transfer Surface: Chair Transfer Equipment: Gait belt, Front wheeled walker Level of Assistance: Modified Independent Assessment/Delivery: Assessed Stand to Sit Transfers # of Assistants: 1 Transfer Surface: Chair Transfer Equipment: Gait belt, Front wheeled walker Level of Assistance: Modified independent Assessment/Delivery: Assessed, Instructed Comments: verbal cues for hand placement and eccentric control Toilet Transfers # of Assistants: 1 Transfer Surface: Toilet Transfer Approach: To and from, Ambulating Transfer Equipment: Front wheeled walker Level of Assistance: Modified independent Assessment/Delivery: Assessed Education provided today: Education on adaptive equipment needs, and sternal precautions. Team Communication: Patient's nurse was contacted and patient's status was discussed, Discussed patient's care with PT Outcome Measures [facility] Inpatient Short Form: Putting on and taking off regular lower body clothing?: None Putting on and taking off regular upper body clothing?: None Taking care of personal grooming such as brushing teeth?: None (Seated) Bathing (including washing, rinsing, drying)?: A Little Toileting, which includes using toilet, bedpan, or urinal?: None Eating meals?: None Daily Activities Raw Score (max 24): 23 Daily Activities Standardized Score: 51.12 Interpretation: Clinicians answer the [facility] Inpatient Short Form based on observed patient activityand/or clinical judgement (ie. patient can be scored without physically performing each activity) Based on scoring guidelines using the raw score value: Those going to home had an average score at or above 18 Those going to facility had an average score at or below 17 Patient was left in bedside chair at end of session with call light in reach, all needs met and questions answered. Contact monitoring: PPE used during therapy: Therapist was wearing the following PPE throughout entire session: surgicalmask, eye protection and gloves Patient was wearing a mask during therapy session: no Family member/caregiver present was wearing a mask: yes Assessment Discharge Therapy Needs - OT: Ongoing skilled occupational therapy (Pending hospital course) Skilled therapy can include occupational therapy provided by home health, outpatient clinic, or a post-acute facility. The location of these services is determined by the patient's care team in partnership with patient/family. Level of Care Needed - OT: Other (Comment), Assistance with shopping, Assistance with housekeeping, Assistance with financial operations consultant, Assistance with meal preparation Recommended Adaptive Equipment - OT: Shower chair with back, Transfer tub bench, Hand held shower head, Toilet safety frame Barriers to Discharge Home: Current functional status, Fall risk Clinical Impression: Patient remains limited secondary to decreased activity tolerance, and generalized weakness resulting in the following deficits; decreased independence for completing functional transfers and self caretasks. Overall, patient progressing well towards OT goals with improved standing tolerance, safety with functional transfers, and independence in lower body dressing. Patient facilitated lower body dressing with use of figure 4 technique requiring set up. Patient participated in toileting task requiring no physical assistance with use of front wheeled walker. Patient is currently not at functional baseline, and would benefit from continued therapy which can include out patient or home health. Rehab potential: Mr. Lagunas has good potential to achieve established occupational therapy goals within the time frame outlined below. Functional Goals: OT Goal #1: Patient will complete toileting with modified independence in order to promote return toprior level of function. OT Goal #1 Status: Achieved OT Goal #2: Patient will complete standing grooming with modified independence to promote return to prior level of function. OT Goal #2 Status: Ongoing OT Goal #3: Patient will complete lower body dressing with modified independence to promote return to prior level of function. OT Goal #3 Status: Achieved OT Goal #4: Patient will verbalize sternal precautions independently when prompted to promote safe participation in daily tasks. OT Goal #4 Status: Progressing Progress: Progressing toward goals Plan Occupational Therapy Attestation Statement: Patient agrees with the plan of care and goals. OT Frequency: OT Amount: 1 visit per day OT Frequency: 5 times per week OT Inpatient Duration : Until goals are met or hospital discharge Requires Inpatient OT Follow-Up: Yes OT - Next Inpatient Appointment: 12/08/21 Plan: Continue with current plan OT Plan Comments: Next session: Progress mobility, standing grooming; review sternal precautions. Treatment interventions may include: Treatment Interventions: Therapeutic exercise, Therapeutic functional activity, Self-care/home management MENDOZA Visit Trackin/6 Billing: Time Spent with Patient Therapeutic Interventions Home Management Training (min): 48 min Time Tracking Total Timed Units (min): 48 min Total Treatment Time (min): 48 min [place] Marcelino, O.T.A. Ceci Jaramillo APRN, C.N.PShanice, M.S.N. - 12/07/2021 10:29 AM CDT SUBJECTIVE Mr. Leidy Lagunas is a 76 y.o. male admitted on 12/03/2021 for coronary artery bypass grafting with Dr. Wiggins. Comorbidities include: coronary artery disease, hypertension, hyperlipidemia, CKD, former smoker Hospital Course ICU: Following surgery on 12/03, Mr. Leidy Lagunas was admitted to CV surgery ICU intubated on vasoactive infusions. He was weaned from mechanical ventilation and extubated. He had 12 lead ECG showing STelevation in nghia-lateral leads. He endorsed chest discomfort. Echocardiogram revealed no new wallmotion abnormalities with ejection fraction 65-70%. No evidence of pericardial effusion. He is diagnosed with postpericardiotomy syndrome. He was weaned from vasoactive infusions. PCU: Leidy Lagunas transferred to the PCU on 12/04. While on the PCU, he experienced atrial fibrillation with controlled ventricular rates and then would convert to sinus kiya. Mr. Lagunas stayed in atrial fibrillation rather than a sinus rhythm for the majority of his time on the PCU. 24 Hour Events: Mr. Leidy Lagunas has had intermittent Afib CVR overnight. He reports sleeping improved. OBJECTIVE I have reviewed the current vital sign data as applicable to this admission. DIAGNOSTICS I have reviewed relevant laboratory, imaging, and other diagnostics as applicable to this admission. PHYSICAL EXAM: General: alert and oriented. In no acute distress Skin: Warm and dry without acute rashes or lesions. Wound vac covers sternal incision Eyes: Pupils reactive bilaterally. Conjunctivae pink. ENT: Neck supple. Trachea midline. Heart: NSR on bedside monitor. S1, S2 regular rate and rhythm without extra sounds, murmurs, rubs orgallops. Capillary refill 2 seconds. Lungs: Respirations regular and easy. Clear and equal to auscultation. Diminished bilateral bases. Abdomen: slightly distended, active bowel sounds. Extremities: No clubbing, cyanosis noted, +2/4 pulses throughout. mild edema noted. Neuro: No focal neurological deficits present. ASSESSMENT / PLAN #1 Coronary Artery Disease With Stable Angina (HCC) #2 Atherosclerotic Heart Disease Of [place] Coronary Artery Without Angina Pectoris #3 Atherosclerotic Heart Disease [place] Coronary Artery With Angina Pectoris (HCC) #4 Postpericardiotomy Syndrome #5 Bypass Coronary Artery Graft Status Post #6 Atrial Fibrillation Paroxysmal (HCC) #7 Postprocedural Pneumothorax 1. Neuro: No acute concerns. Sleep improved. Continue scheduled melatonin 3 mg at bedtime for insomnia. Pain well controlled with scheduled tylenol and PRN oxycodone for breakthrough pain. Avoiding oxycodone due to visual hallucinations. 2. Cardiovascular: SBP improved in the 120-130s. Has had intermittent Afib CVR. Currently in Sinus Rhythm. Continue Imdur 30 mg daily. Increased amlodipine to 10 mg daily. Consider transition to losartan for GDMT once Renal function improves. Continue Metoprolol 25 mg BID, Zetia, and Lipitor daily. Continue Amiodarone 200 mg BID for VT arrest intraoperatively/ postoperatively Afib. Continue colchicine 0.3 mg for postpericardiotomy syndrome. 3. Pulmonary: Tolerating RA. Supplemental oxygen via nasal cannula as needed to maintain O2 sats > 88%. Continue aggressive pulmonary hygiene. Nocturnal oxygen obtained and no oxygen needed. 4. Renal: creatinine 1.40 from 1.38. UO of 525 thus far. Urinary retention improved. Continue Flomax0.4mg daily. 5. GI/Endocrine: . Last bowel movement 12/06, continue bowel regimens and PRN available. Continue Protonix for GI prophylaxis. 6. Hem: DVT prophylaxis continues with ambulation. Anticoagulation therapy continues with ASA and Plavix. Consider transitioning to Eliquis and Plavix, if patient goes back into Afib. 7. ID/Skin: no concerns. WBC stable at 10.4. Wound vac to be removed POD#5. 8. Code Status: Full Code 9. Disposition: Anticipated date 12/08 pending rhythm. Anticipated destination Home with family. 10. Medication reconciliation completed Patient was seen and/or care plan discussed with Dr. Wiggins or their resident/fellow. Michelle Jewell R.RMukesh, L.R.T. - 12/07/2021 9:20 AM CDT Nocturnal oxygen assessment completed. Patient did not qualify for supplemental oxygen during the night. Electronically signed by: Michelle Jewell R.R.T., L.R.TShanice 12/07/21 9:20 AM CDT Ceci Jaramillo APRN, C.N.P., M.S.N. - 12/06/2021 4:24 PM CDT SUBJECTIVE Mr. Leidy Lagunas is a 76 y.o. male admitted on 12/03/2021 for coronary artery bypass grafting with Dr. Wiggins. Comorbidities include: coronary artery disease, hypertension, hyperlipidemia, CKD, former smoker Hospital Course ICU: Following surgery on 12/03, Mr. Leidy Lagunas was admitted to CV surgery ICU intubated on vasoactive infusions. He was weaned from mechanical ventilation and extubated. He had 12 lead ECG showing STelevation in nghia-lateral leads. He endorsed chest discomfort. Echocardiogram revealed no new wallmotion abnormalities with ejection fraction 65-70%. No evidence of pericardial effusion. He is diagnosed with postpericardiotomy syndrome. He was weaned from vasoactive infusions. PCU: Leidy Lagunas transferred to the PCU on 12/04. 24 Hour Events: Mr. Leidy Lagunas is quite sleepy today. He reports slept poorly. Will schedule melatonin for bedtime. Pleural chest tube removed. Will obtain dismissal testing. Hypertensive overnight that required PRN hydralazine, will increase amlodipine to 10 mg daily. OBJECTIVE I have reviewed the current vital sign data as applicable to this admission. DIAGNOSTICS I have reviewed relevant laboratory, imaging, and other diagnostics as applicable to this admission. PHYSICAL EXAM: General: alert and oriented. In no acute distress Skin: Warm and dry without acute rashes or lesions. Wound vac covers sternal incision Eyes: Pupils reactive bilaterally. Conjunctivae pink. ENT: Neck supple. Trachea midline. Heart: NSR on bedside monitor. S1, S2 regular rate and rhythm without extra sounds, murmurs, rubs orgallops. Capillary refill 2 seconds. Lungs: Respirations regular and easy. Clear and equal to auscultation. Diminished bilateral bases. Abdomen: slightly distended, active bowel sounds. Extremities: No clubbing, cyanosis noted, +2/4 pulses throughout. mild edema noted. Neuro: No focal neurological deficits present. ASSESSMENT / PLAN #1 Coronary Artery Disease With Stable Angina (HCC) #2 Atherosclerotic Heart Disease Of [place] Coronary Artery Without Angina Pectoris #3 Atherosclerotic Heart Disease Of [place] Coronary Artery With Angina Pectoris (HCC) #4 Postpericardiotomy Syndrome #5 Bypass Coronary Artery Graft Status Post 1. Neuro: No acute concerns. poor sleep overnight, will schedule melatonin 3 mg at bedtime. Pain well controlled with scheduled tylenol and PRN oxycodone for breakthrough pain. Avoiding oxycodone due to visual hallucinations. 2. Cardiovascular: Elevated SBP in the 140-170s, required hydralazine. Continue Imdur 30 mg daily. Increased amlodipine to 10 mg daily. Consider transition to losartan for GDMT once Renal function recover. Continue Metoprolol 25 mg BID, Zetia, and Lipitor daily. Continue Amiodarone 200 mg BID for VT arrest intraoperatively. Continue colchicine 0.3 mg for postpericardiotomy syndrome. 3. Pulmonary: Tolerating 1 L NC> Supplemental oxygen via nasal cannula as needed to maintain O2 sats > 88%. Continue aggressive pulmonary hygiene. Pleural chest tube removal. CXR shows small pleural effusion and trace apical pneumo. Will obtain nocturnal oxygen study tonight. 4. Renal: creatinine 1.32. UO of 1.5L thus far. Has had urinary retention that requires I/O cath. Resume Flomax 0.4mg daily. Below 1 kg from preop weight. 5. GI/Endocrine: . Last bowel movement /, continue bowel regimens and PRN available. Continue Protonix for GI prophylaxis. 6. Hem: DVT prophylaxis continues with ambulation. Anticoagulation therapy continues with ASA and Plavix. 7. ID/Skin: no concerns. WBC stable at 10.4. Wound vac to be removed POD#5. 8. Code Status: Full Code 9. Disposition: Anticipated date 12/07- Anticipated destination Home with home oxygen 10. Medication reconciliation completed Patient was seen and/or care plan discussed with Dr. Wiggins or their resident/fellow. Ceci Jaramillo APRN, C.Cale.Donal, M.S.N. - 12/06/2021 11:57 AM CDT MEDIASTINAL AND PLEURAL CHEST TUBE REMOVAL: Pleural Chest Tube Removal The left lateral pleural chest tube(s) were removed. An air leak was not present prior to removal. Pleural chest tube(s) were removed per protocol. Purse string sutures are not applicable. Patient tolerated the procedure without incident. Bilateral breath sounds were audible post-tube removal. An actuation system was not present. Hermilo Severino, Kevon.Radha. - 12/06/2021 7:21 AM CDT Clinical Pharmacist Progress Note Leidy Lagunas is a 76 y.o. male admitted on 12/03/2021 for CABG PMH: coronary artery disease, hypertension, hyperlipidemia, CKD, former smoker Procedure during this stay: 12/03/21: CABG x3 (AVALOS-LAD, SVG to distal RCA, and SVG to ramus) Pharmacotherapy Plan 1. CABG - Post-bypass EF 65-70%. a. DAPT with: ASA 81 mg, Plavix 75 mg, b. Statin: atorvastatin 40 mg c. Beta Grzegorz: metoprolol titrating upward d. Anticipate resumption of home losartan in coming days. e. Imdur 30 mg for vasospasm ppx. 2. EKG suggestive of pericarditis. Cardiology recommending colchicine 0.3 mg QD, no indication for high dose NSAID therapy 3. Afib - converted amiodarone, now on PO taper 4. Visual Hallucinations: reportedly improved off oxycodone, Avoid narcotics as able 5. Hyperkalemia - received Lasix, insulin. Appears improved without intervention Prophylaxis: Consider H Home scheduled medications on hold: losartan Pharmacotherapy Recommendations: 1. Given concominant diagnosis of CKD recommend reinitiation of JOSE ANGEL/ARB as able for renal protectiveeffects Renee DasPh. Aline Loredo P.A.-C. - 12/05/2021 5:21 PM CDT SUBJECTIVE Mr. Leidy Lagunas is a 76 y.o. male admitted on 12/03/2021 for coronary artery bypass grafting with Dr. Wiggins. Comorbidities include: coronary artery disease, hypertension, hyperlipidemia, CKD, former smoker Hospital Course ICU: Following surgery on 12/03, Mr. Leidy Lagunas was admitted to CV surgery ICU intubated on vasoactive infusions. He was weaned from mechanical ventilation and extubated. He had 12 lead ECG showing STelevation in nghia-lateral leads. He endorsed chest discomfort. Echocardiogram revealed no new wallmotion abnormalities with ejection fraction 65-70%. No evidence of pericardial effusion. He is diagnosed with postpericardiotomy syndrome. He was weaned from vasoactive infusions. PCU: Leidy Lagunas transferred to the PCU on 12/04. 24 Hour Events: Mr. Leidy Lagunas has had an uneventful 24 hours. Mediastinal chest tubes and pacingwires were removed uneventfully this morning. He was hypertensive overnight, and oral medications were adjusted. The patient does note some visual hallucinations that have improved with avoidance of narcotic medications. He has no other concerns at this time. OBJECTIVE I have reviewed the current vital sign data as applicable to this admission. DIAGNOSTICS I have reviewed relevant laboratory, imaging, and other diagnostics as applicable to this admission. PHYSICAL EXAM: General: alert and oriented. In no acute distress. Skin: Warm and dry without acute rashes or lesions. Wound vac covers sternal incision. Eyes: Pupils reactive bilaterally. Conjunctivae pink. ENT: Neck supple. Trachea midline. Heart: NSR on bedside monitor. S1, S2 regular rate and rhythm with a consistent rub noted. Capillaryrefill 2 seconds. No appreciable JVD. Lungs: Respirations regular and easy. Clear and equal to auscultation. Diminished bilateral bases. Abdomen: Soft, non-distended, hypoactive bowel sounds. Extremities: No clubbing, cyanosis noted, +2/4 pulses throughout. Trace edema noted. Neuro: No focal neurological deficits present. ASSESSMENT / PLAN #1 Coronary Artery Disease With Stable Angina (HCC) #2 Atherosclerotic Heart Disease Of [place] Coronary Artery Without Angina Pectoris #3 Atherosclerotic Heart Disease Of [place] Coronary Artery With Angina Pectoris (HCC) #4 Postpericardiotomy Syndrome #5 Bypass Coronary Artery Graft Status Post 1. Neuro: No acute concerns. Pain well controlled with scheduled APAP. Avoiding Oxycodone due to visual hallucinations. 2. Cardiovascular: SBPs elevated to the 140-170s overnight, treated with hydralazine. Imdur increased to 30mg daily. Continue Metoprolol 25mg BID, Zetia, statin, and Norvasc 5mg daily. Consider transition of Norvasc to Losartan for GDMT pending improvement in renal function. Colchicine initiated for po stpericardiotomy syndrome. Continue Amiodarone 200mg BID due to arrest intraoperatively. Pacing wires removed. 3. Pulmonary: Tolerating 1L NC. Mediastinal chest tubes removed today; maintain pleural chest tube. Supplemental oxygen via nasal cannula as needed to maintain O2 sats > 88%. 4. Renal: Creatinine 1.35, below patient preop. Net negative 3.6L thus far today with robust urine output. Lasix deescalated to oral dosing tomorrow. Urinary catheter removed today; consider reinitiation of home Flomax. 5. GI/Endocrine: Last bowel movement 12/02, escalate current bowel regimen and utilize PRN bowel medications. Tolerating liquid diet. Not passing flatus. Protonix for GI prophylaxis. 6. Hem: DVT prophylaxis continues with SCDs and frequent ambulation. Dual antiplatelet therapy continues with ASA 81mg and Plavix 75mg daily. 7. ID/Skin: No acute concerns. Maintain wound vac through postoperative day 5. Perioperative antibiotics complete. 8. Code Status: Full Code. 9. Disposition: Anticipated date 12/07- pending chest tube removal, dismissal testing, and rehabilitation. Anticipated destination Home 10. Medication reconciliation completed Patient was seen and/or care plan discussed with Dr. Wiggins or their resident/fellow. Aline Loredo P.A.-C. - 12/05/2021 11:39 AM CDT MEDIASTINAL AND PLEURAL CHEST TUBE REMOVAL: Mediastinal Chest Tube Removal The left medial and right medial mediastinal chest tube(s) were removed. An air leak was not present prior to removal. Mediastinal chest tube(s) were removed per protocol. Purse string sutures are not applicable. Patient tolerated the procedure without incident. Bilateral breath sounds were audible post-tube removal. An actuation system was not present. Pleural Chest Tube Removal The left lateral pleural chest tube(s) remain. Aline Loredo P.A.-C. - 12/05/2021 11:38 AM CDT Epicardial Pacing Wire Removal: Atrial and ventricular epicardial pacing wires were removed Epicardial pacing wire(s) were removed intact per protocol and without incident Pacing wires were pulled Patient was located in his bed at time of pacing wire removal \ Yadi Lpoes Pharm.D., R.Ph. - 12/04/2021 6:36 AM CDT Clinical Pharmacist Progress Note Leidy Lagunas is a 76 y.o. male admitted on 12/03/2021 for CABG PMH: coronary artery disease, hypertension, hyperlipidemia, CKD, former smoker Procedure during this stay: 12/03/21: CABG x3 (AVALOS-LAD, SVG to distal RCA, and SVG to ramus) Pharmacotherapy Plan 1. CABG - ASA 81 mg, Plavix 75 mg, atorvastatin 40 mg. Consider metoprolol initiation and uptitrating as hemodynamics allow. Anticipate resumption of home losartan in coming days. Post-bypass EF 65-70%. Imdur 15 mg for vasospasm ppx. 2. EKG suggestive of pericarditis. Cardiology recommending colchicine 0.3 mg pending surgical team'sinput. Starting this may help to come off the nitroglycerin 3. Afib - converted to NSR with IV amiodarone, follow up if PO taper is needed 4. Hyperkalemia - received Lasix, insulin. Closely trend 5. Post op cares - multimodal pain regimen, bowel regimen. Cefazolin with stop date. 6. Home medications - consider resuming tamsulosin Prophylaxis: Consider SQH Home scheduled medications on hold: amlodipine, losartan, tamsulosin Yadi Lopes Pharm.D., R.Ph. Prudencio Schulte P.A.-C. - 12/04/2021 4:26 AM CDT Post operative day 1 SUBJECTIVE Mr. Leidy Lagunas is a 76 y.o. male admitted on 12/03/2021 for coronary artery bypass grafting with Dr. Wiggins. Comorbidities include: coronary artery disease, hypertension, hyperlipidemia, CKD, former smoker Hospital Course ICU: Following surgery on 12/03, Mr. Leidy Lagunas was admitted to CV surgery ICU intubated on vasoactive infusions. He was weaned from mechanical ventilation and extubated. He had 12 lead ECG showing STelevation in nghia-lateral leads. He endorsed chest discomfort. Echocardiogram revealed no new wallmotion abnormalities with ejection fraction 65-70%. No evidence of pericardial effusion. He is diagnosed with postpericardiotomy syndrome. He was weaned from vasoactive infusions. He transferred to [facility] care unit on postoperative day 1. 24 Hour Events: Mr. Leidy Lagunas was weaned from mechanical ventilation and extubated. He had [address] elevation in nghia-lateral leads. He endorsed chest discomfort. Echocardiogram revealed no new wall motion abnormalities with ejection fraction 65-70%. No evidence of pericardial effusion. He is diagnosed with postpericardiotomy syndrome. He was weaned from vasoactive infusions. He is stable for transfer to PCU today. He has adequate urine production. Awaiting morning labs. OBJECTIVE I have reviewed the current vital sign data as applicable to this admission. DIAGNOSTICS I have reviewed relevant laboratory, imaging, and other diagnostics as applicable to this admission. PHYSICAL EXAM: General: In no acute distress, Arterial line in-place, Right IJ CVC in-place, Chest tubes in-place and Blevins catheter in-place Skin: Acyanotic, warm and dry. Wound vac continues over sternal incision. Eyes: Pupils reactive bilaterally. Conjunctivae pink. ENT: Neck supple. Trachea midline. Mucus membranes are moist. Heart: Remains in sinus rhythm and paced at 80 bpm; atrial pacing on bedside monitor. S1 S2 with regular rhythm. No S3; loud friction rub noted. Adventitious sounds consistent with chest tubes. Capillary refill 2 seconds. Lungs: Respirations regular and easy. Clear and equal to auscultation. Diminished bilateral bases. Mediastinal drains have an airleak. Left pleural drain is patent. Abdomen: Soft, non-distended, hypoactive bowel sounds. Extremities: No cyanosis noted, Pulses 2+, Trace nonpitting pedal edema. Neuro: Alert and oriented. GCS 15. ASSESSMENT / PLAN #1 Coronary Artery Disease With Stable Angina (HCC) #2 Preoperative Examination Cardiovascular #3 Atherosclerotic Heart Disease Of [place] Coronary Artery Without Angina Pectoris 1. Neuro: No acute concerns. Multi-modal analgesia is available with Tylenol, oxycodone, hydromorphone IV, Lidoderm patch 2. Cardiovascular: Hemodynamically stable and currently in sinus rhythm and paced at 80 bpm; atrial pacing. Lactic acidosis has improved with fluids and time. Pacing wires will be removed prior to discharge. Resume beta grzegorz with metoprolol 12.5 mg oral, bid and titrate for BP control. Cardiology CICU recommends Colchicine 0.6 mg daily for post pericardiotomy syndrome - will review this further with primary cv surgery team. 3. Pulmonary: Maintaining adequate oxygen saturations on nasal cannula. Aggressive pulmonary toilet with incentive spirometer and early ambulation. 4. Renal: Admission Weight: 92.2 kg and today's weight 90 kg. Fluid balance is positive for the past24 hours: Positive 4219 cc; urine output is 1745 cc. Consider a fluid balance of even to negative 1 liter today. Initiate forced diuresis with furosemide 20 mg iv ibid; Continue to monitor K, Na, Ca, Mag and replace as needed. Adequate urine output with Blevins catheter for strict I&Os. Will consider removing catheter later today and bladder scanning PRN. 5. GI/Endocrine: Initiate clear liquid diet and advance as bowel function returns. Last bowel movement preoperatively. Scheduled and PRN bowel regimen is available on profile. 6. Endocrine: Correction scale insulin to maintain euglycemia; note was not on anti-diabetic therapies pre-op. May need to consult DCS. 7. HEM: DVT prophylaxis continues with SCDs. Continue Aspirin and Plavix. Continue to monitor Hgb, Plt, and WBCs. Keep Hgb > 6.9. 8. ID/LDA/Skin: Postoperative prophylaxis antibiotics will continue per protocol. Remove CVC and arterial line prior to PCU transfer. Sternal incision wound vac continues and remove POD 5. 9. Code Status: Full Code 10. Disposition: Transfer to the PCU today. Anticipated discharge date 12/07-. Anticipated destination home. 11. Medication reconciliation completed Silvio Fleming M.D. - 12/03/2021 4:35 PM CDT SUBJECTIVE BACKGROUND: LEIDY LAGUNAS is a 76 y.o. male patient of Dr. Wiggins with h/o CAD s/p mid LAD FRANSISCA in 2005, HTN, and CKD stage 3 who is now s/p CABG x3 (AVALOS-LAD, SVG to distal RCA, and SVG to ramus) on 12/03. 24hr events: Patient had a relatively on complicated perioperative course. His airway was secured easily in standard lines were placed. Following separation from CPB with V-pacing he had significant MR and went into VF prompting return to CPB for short time during which they placed A-pacing leads. He then easily with AV-pacing without further issues and improvement MR. OBJECTIVE I have physically examined the patient and reviewed his medical record including pertinent labs and imaging. PHYSICAL EXAM Gen: pharmacologically sedated, PERRL Resp: intubated/ventilated, CTAB, no increased WOB CV: normal HDs on inopressor infusions, AV-paced rhythm Abdomen: Soft, nontender, nondistended Peripheries: warm perfused peripheries without evidence of peripheral edema ASSESSMENT / PLAN #1 CAD s/p CABG x3 (AVALOS-LAD, SVG to distal RCA, and SVG to ramus) on 12/03 #2 prior mid LAD FRANSISCA in 2006 #3 need for postoperative mechanical ventilation #4 HTN #5 CKD 3 NEURO: Continuing opioid sparing analagosedation with intent to wean for extubation, sleep/delirium precautions, PT/OT as able CV: Weaning inotropic and vasopressive agents as tolerated for normal CI and end-organ perfusion PULM: Weaning ventilator with goal to extubate, VAP bundle in place with lung protective ventilationstrategy RENAL: no indication for diuresis at this time, following electrolytes and managing as indicated GI: NPO, will ADAT is soon as extubated, continuing GI prophylaxis, bowel regimen PRN ENDO: ensuring blood glucose < 180 with insulin as appropriate HEME: following hematologic parameters and transfusing PRN, anticoagulation to be initiated per surgeon preference ID: No current issues MSK/SKIN: No current issues ACCESS: Pt continues to need central venous access, arterial line, and indwelling blevins for ongoing care Critical care time 35 minutes. This is time spent at this critically ill patient's bedside actively involved in patient care as well as the coordination of care and discussions with other services and the patient's family. This does not include any procedural time which has been billed separately. Gary Fleming MD Anesthesia Critical Care Ricardo Willett, Kevon.R.T., L.R.T. - 12/03/2021 3:35 PM CDT Respiratory Therapy provided patient transport from [facility] to [facility] using assisted ventilation settings: CMV 14, 500, 8, 60%. Conversation with in-room provider prior to transport; patient transported without incident. Electronically signed by: Ricardo Willett R.R.T., L.R.T. 12/03/21 3:35 PM CDT Sparkle Mena Pharm.D., R.Ph. - 12/03/2021 10:49 AM CDT Images from the original note were not included. Admission Medication History Note Adherence issues: No concerns Medication list source: Patient and family Medication related information: None Prior to Admission Medications Med List Status: Pharmacy Complete Set By: Sparkle Mena, Pharm.D., R.Ph. at 12/03/2021 10:48 AM Taking? Last Dose Informant Start Date End Date LT amLODIPine (NORVASC) 5 mg tablet 12/02/2021 11/05/21 -- Take 1 tablet (5 mg total) by mouth daily. Patient taking differently: Take 5 mg by mouth every evening. aspirin 81 mg chewable tablet 12/02/2021 -- -- Chew 81 mg daily. atorvastatin (LIPITOR) 40 mg tablet 12/02/2021 09/05/16 -- Take 1 tablet by mouth every evening. cholecalciferol (VITAMIN D3) 50 mcg (2,000 Unit) tablet 11/27/2021 06/09/11 -- Take 1 tablet by mouth daily. ezetimibe (ZETIA) 10 mg tablet 12/02/2021 11/04/21 -- Take 1 tablet (10 mg total) by mouth daily. Patient taking differently: Take 10 mg by mouth every evening. losartan (COZAAR) 100 mg tablet 11/30/2021 04/17/15 -- Take 1 tablet by mouth daily. metoprolol succinate (TOPROL-XL) 25 mg 24 hr tablet 12/02/2021 Self 09/05/16 -- Take 1 tablet by mouth every evening. mupirocin (BACTROBAN) 2 % ointment 12/03/2021 12/02/21 -- Apply 1 application topically 2 (two) times a day. Place pea-sized amount in each nostril night before and morning of surgery. nitroglycerin (NITROSTAT) 0.4 mg SL tablet Unknown 11/05/21 -- Place 1-2 tablets (0.4-0.8 mg total) under the tongue every 5 (five) minutes as needed for chest pain. Place 1 tab under tongue at first sign of angina. Repeat in 5 min until relief. Max 3 tab/15 min Notes: Dispense in original container tamsulosin (FLOMAX) 0.4 mg 24 hr capsule 12/02/2021 09/05/16 -- Take 0.4 mg by mouth every evening. traMADol (ULTRAM) 50 mg tablet More than a month 02/22/16 -- Take 1 tablet by mouth every 6 (six) hours as needed (Back pain). Rarely uses Sparkle Mena Pharm.D., R.Ph. Brent Robbins Pharm.D., R.Ph. - 12/03/2021 9:56 AM CDT Clinical Pharmacist Progress Note Procedure during this stay: 12/03/21 Plan CABG x 3 OBJECTIVE Home medications: amlodipine, aspirin, atorvastatin, D3, ezetimibe, losartan, metoprolol succinate (XL), NTG SL, sildenafil, tamsulosin, tramadol Assessment: 1. CABG LVEF 65% on 11/04/21 ECHO, Lipid panel 11/04/21 Chol 142, TG 53, HLD 52, LDL 79 a. Needs aspirin 81 mg 6 hours post op then daily b. Consider increasing atorvastatin to 80 mg qhs c. Resume metoprolol when able 2. CKD 3a will adjust mediations if needed for renal function 3. HTN JNC 8 blood pressure goal < 140/90, ACC goal < 130/80 4. Chronic rhinitis Brent Robbisn Pharm.D., R.Ph. documented in this encounter Consult Notes Griselda De Leon, RShaniceN. - 12/06/2021 3:03 PM CDTAssociated Order(s): IP CONSULT TO CARE MANAGEMENT Discharge Planning Assessment SUBJECTIVE Assessment Information Referral Source: Provider/Service Referral Reason: Discharge Planning Primary Language: [place] Satellite Installation Technician Services Used: No Person(s) present during interview: Person(s) Present During Interview: patient and daughter, Destiny Meadows History of Present Illness #1 Coronary Artery Disease With Stable Angina (HCC) #2 Atherosclerotic Heart Disease Of [place] Coronary Artery Without Angina Pectoris #3 Atherosclerotic Heart Disease Of [place] Coronary Artery With Angina Pectoris (HCC) #4 Postpericardiotomy Syndrome #5 Bypass Coronary Artery Graft Status Post Social History Marital Status: Finance/Insurance Primary insurance: MEDICARE A AND B Secondary insurance: [employer] [facility] Does the patient have any financial concerns? no Advance Directives Legal Decision Maker: Self Advance Directives: (Patient not interested in information at this time.) OBJECTIVE Baseline Functional Status Baseline Activities of Daily Living Mobility: Independent Dressing: Independent Feeding: Independent Bathing: Independent Grooming: Independent Toileting: Independent Behavior: Appropriate, Oriented Communication: Talks, Understands speaking, Understands [place] Shopping: Independent Transportation: Independent to drive Medication Management: Independent Housekeeping: Dependent (Patient's manages the housekeeping and meal prep.) Meal Prep: Dependent Managing Finances: Independent Assistive Devices: None Baseline Services/Resources Primary care clinic and provider: ELSEWHERE, PCP Anticipated Needs Functional Status: Transportation use (drive car, use taxi/bus) Assistive Devices: Tub/shower chair/bench (May need Home Oxygen) Anticipated Modifications to the Patient's Home: None Transportation Needs: Support from family Does the patient need discharge transport arranged?: No (Patient's Bria will provide transportation.) Anticipated Discharge Destination: Home or Self Care ASSESSMENT / PLAN Discussion machine tank operator met with patient and his daughter, Destiny, regarding home going needs for home oxygen. Patient is interested in home oxygen if needed. Patient would like a referral sent to [facility]. Patient currently lives in a multi-level home with two steps to enter without handrail. Patient also has approximately 15 steps to get up to the level with bedroom and bathroom. Per patient's daughter these steps have a handrail as well as a landing that a chair will be placed for him torest if needed. Patient has no formal home healthcare. Patient's daughter and her three teenage sonslive near patient's home and can provide support if needed. Patient's is planning on being his main caregiver. Assessment: The machine tank operator met with Leidy Lagunas to discuss his current hospitalization and home going needs. The patient was accompanied by daughter, Destiny . The patient was a generally reliable historian, but occasionally needs support from his daughter, Destiny, for complete accuracy. The role of machine tank operator was reviewed. The patient and patient's daughter reviewed his prior level of care and support system. The patient receives support from his , daughter and extended family. The patient's daughter described his living environment as a multiple level home with stairs to enter without rails. Housekeeping, grocery shopping, meal prep, and other household responsibilities havepreviously been completed by patient's . machine tank operator discussed the patient's potential needsat dismissal based on their home setting, previous needs and responsibilities, homebound status, andrelevant assessments with the patient's daughter. The patient will be safe and supported to return home with spouse/S.O. when medically ready. Support will be provided by his , Bria. The patient'sdaughter demonstrated understanding when discussing his home going plans and anticipated needs. At this time, the care team anticipates the patient will potentially require the following new service(s) to be set up: oxygen. After reviewing the patient's chart and meeting with the patient and patient's daughter, the RN CaseManager deemed the LACE+/readmission questions were not necessary. The patient's daughter reports understanding that he will dismiss from the hospital TOMORROW 12/07/21. Pending hospital course and medical readiness, no barriers to dismissal have been identified at this time. Plan: The patient's daughter agrees with the following plan. 1. Patient's anticipated discharge disposition is: Home to Self Care with DME Accepted and selected:[facility] 2. Transportation upon dismissal will be provided by family--, Bria. 3. machine tank operator recommended nothing at this time. 4. machine tank operator provided information regarding the dismissal process. 5. machine tank operator placed or requested the following hospital-based consult orders and/or referrals:None. 6. machine tank operator will continue to assess for homegoing needs with the interdisciplinary team. 7. machine tank operator encouraged the patient to reach out with any questions/concerns. Home oxygen will be provided by: Durable Medical Equipment - Admitted Since 12/03/2021 Service Provider Selected Services Address Phone Fax Patient Preferred [facility] [employer] [employer] [address] [place] [id number] [phone] -- Contact: On-Call, follow prompts to make contact with on-call provider if patient discharges over the weekend. Portable tanks for transport to be delivered to the patient???s room prior to dismissal. Concentrator to be delivered and set up at patient???s home. NURSING: - Fax prescription to oxygen provider. - Fax any necessary clinical documentation supporting oxygen need including After Visit Summary andDME justification. - Arrange initial oxygen delivery to the hospital with a portable concentrator. PRIMARY SERVICE: - Review and sign oxygen prescription and supporting documentation including After Visit Summary and DME justification prior to patient???s dismissal. CASE MANAGEMENT: - Will continue to follow. Signed by: Griselda De Leon R.N. 12/06/2021 Ginny Weathers P.T., D.P.T. - 12/06/2021 10:04 AM CDT Physical Therapy Inpatient Evaluation/Treatment SUBJECTIVE Patient's Name: Leidy Lagunas Referring/Attending Provider: Dario Wiggins M.D. Medical Diagnosis: Coronary Artery Disease With Stable Angina (HCC) [I25.118] Preoperative Examination Cardiovascular [Z01.810] Atherosclerotic Heart Disease Of [place] Coronary Artery Without Angina Pectoris [I25.10] Atherosclerotic Heart Disease [place] Coronary Artery With Angina Pectoris (HCC) [I25.119] Reason for Referral: PT Evaluate and Treat Cardiac PT Onset Date: 12/03/21 Payor: MEDICARE / Plan: MEDICARE A AND B / Product Type: Medicare / PERTINENT MEDICAL / SURGICAL HISTORY: Patient Active Problem List Diagnosis ??? Coronary Artery Disease (Unspecified) ??? Hypertension ??? Hypertension NOS ??? Coronary Artery Disease With Stable Angina (HCC) ??? Hyperlipidemia On Treatment ??? Rhinitis Chronic ??? Polyp Colon ??? Nodule Prostate ??? Ischemic Heart Chronic Disease ??? Lightheadedness ??? Other Chest Pain ??? Fatigue ??? Chronic Kidney Disease (CKD), Stage 3a Glomerular Filtration Rate (GFR) 45 To 59 (HCC) ??? Atherosclerotic Heart Disease Of [place] Coronary Artery Without Angina Pectoris ??? Atherosclerotic Heart Disease [place] Coronary Artery With Angina Pectoris (HCC) ??? Postpericardiotomy Syndrome ??? Bypass Coronary Artery Graft Status Post Past Surgical History: Procedure Laterality Date ??? CABG X 1 - KAI N/A 12/03/2021 Procedure: CORONARY ARTERY BYPASS GRAFT X1, INTERNAL MAMMARY ARTERY.; Surgeon: Dario Wiggins M.D.; Location: [facility] ??? CABG X 2 - VEIN N/A 12/03/2021 Procedure: CORONARY ARTERY BYPASS GRAFT X2, VEIN.; Surgeon: Dario Wiggins M.D.; Location: [facility] ??? CATH ANGIOGRAM N/A 11/11/2021 Procedure: Coronary Angiography; Surgeon: Von Crawford M.D.; Location: [facility] ??? CORONARY ANGIOPLASTY WITH STENT PLACEMENT N/A 10/02/2005 >Percutaneous transluminal coronary angioplasty of the mid LAD, placement of a Cypher drug-eluting stent in ??? HARVEST VEIN ENDOSCOPY LOWER EXTREMITY Left 12/03/2021 Procedure: HARVEST VEIN ENDOSCOPY LOWER EXTREMITY; Surgeon: Dario Wiggins M.D.; Location: [facility] History of Present Illness: Pt presenting s/p CABGx3. 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 Mobility/Functional Transfers Level of [place]: Independent Home Equipment Gait Devices Owned: Front-wheeled walker, Cane (from ) Bathroom Equipment: Built-in shower seat (feels that seat is low) Home Living Type of Home: House Home Layout: Bedroom upstairs, Multi-level Home Access: Stairs to enter without rails Entrance Stairs: Number of Steps: 1/2 step to enter through the garage Bathroom Shower/Tub: Walk-in shower Walk-in shower enclosure type: Sliding/glass door Bathroom Toilet: Standard Bathroom Accessibility: Yes How Accessible: Accessible via walker Dominant Hand: Right Family/Caregiver Present: Yes (daughter) Patient/Caregiver Goals: None stated Patient Comments: Pt found seated in chair. Pt denying pain. Pt agreeable to PT session. Pt reporting dizziness following sit<>stands which resolved with seated rest break Precautions Other Precautions: fall risk Fall Risk (65 and older) Fall in the last 12 months: No Are you fearful of falling?: Yes OBJECTIVE Leidy's NOHARM modalities were not used during their therapy session. Vitals stable per chart review. Vitals WNLs prior to mobility Vitals taken during session following gait and sit<>standsx5: Pulse rate: 63 bpm, Blood pressure: 107/63 mmHg, MAP: 74, O2 sats: 97% and O2 flow: 1 L/min nasal cannula with pt reporting mild dizziness following sit<>stands Pt then completed LE exercises with pt continuing to report mild dizziness with BP reassessed with systolic in the 90s and MAP-64 and pt then fully reclined in chair with RN Kristen notified and presentin room Pt reporting full resolution of symptoms while fully reclined in chair and systolic BP returning to 120s with RN aware and pt and RN in agreement pt would remain in chair. Cognition Arousal/Alertness: Appropriate responses to stimuli Attention: Addressed, no concerns noted Initiation: No difficulty with initiation Orientation: Oriented X4 Following Commands: Follows all commands/directions without difficulty Safety/Judgment: Addressed, no concerns noted General ROM / Strength Screening ROM - Lower Extremity Screen: Addressed, no concerns noted Strength - Lower Extremity Screen: Impaired right & left Strength - Lower Extremity Screen Comments: generalized weakness Sit to Stand Transfers # of Assistants: 1 Transfer Surface: Chair Transfer Equipment: Gait belt, Front wheeled walker Level of Assistance: Contact guard assistance Assessment/Delivery: Assessed, Instructed, Facilitated Comments: verbal cues for hand placement and technique Stand to Sit Transfers # of Assistants: 1 Transfer Surface: Chair Transfer Equipment: Gait belt, Front wheeled walker Level of Assistance: Contact guard assistance Assessment/Delivery: Assessed, Instructed, Therapist assisted, Facilitated Comments: verbal cues for hand placement and eccentric control Gait Assessment/Training Distance (m): 30 m Surface: Even, Smooth/hard Device: Gait belt, Front-wheeled walker # of Assistants: 1 Level of Assistance: Contact guard assistance Quality/Pattern: Shuffling, Decreased base of support Stability: mild LE unsteadiness with no overt loss of balance Assessment of Gait: decreased gait speed, mild forward trunk flexion, downward gaze Cueing Provided: Verbal, Tactile Training/Intervention: verbal and tactile cues for posture and positioning in fww; verbal cues for normalized stepping pattern with noted improvement in step length and gait speed Response: No adverse symptoms noted or reported by pt Seated Exercises Seated Exercise - Side Addressed: Bilateral Sitting Surface: Chair Seated Exercise: Ankle pumps, Marching, Long arc quads Exercise Mode: Active motion against gravity Sets/Repetitions: 1x10 reps with verbal cues for technique Seated Exercise 1: 5xsit<>stands CGA with fww and verbal cues for technique The following coordination of care occurred today: Discussed with RN pt's performance during session, vitals during session, and positioning at end of session. Patient's nurse was contacted and patient's status was discussed, Discussed patient's care with OT Patient was left in bedside chair at end of session with call light in reach, all needs met and questions answered. Contact monitoring: PPE used during therapy: Therapist was wearing the following PPE throughout entire session: surgicalmask, eye protection and gloves Patient was wearing a mask during therapy session: yes Family member/caregiver present was wearing a mask: yes Outcome Measures -[facility] Inpatient Short Form: -[facility] Basic Mobility (V.2) How much help from another person do you currently need???If the patient hasn't done an activity recently, how much help from another person do you think he/she would need if he/she tried? 1. Turning from your back to your side while in a flat bed without using bedrails?: None 2. Moving from lying on your back to sitting on the side of a flat bed without using bedrails?: A Little 3. Moving to and from a bed to a chair (including a wheelchair)?: A Little 4. Standing up from a chair using your arms (e.g., wheelchair, or bedside chair)?: A Little 5. To walk in hospital room?: A Little 6. Climbing 3-5 steps with a railing?: A Little AM-PAC Basic Mobility (V.2) Raw Score: 19 AM-PAC Basic Mobility (V.2) Standardized Score: 42.48 Interpretation: Clinicians answer the -[facility] Inpatient Short Form based on observed patient activityand/or clinical judgement (ie. patient can be scored without physically performing each activity) Based on scoring guidelines using the raw score value: Those going to home had an average score at or above 18 Those going to facility had an average score at or below 17 Assessment Discharge Therapy Needs - PT: Ongoing skilled physical therapy Skilled therapy can include physical therapy provided by home health, outpatient clinic, or a post-acute facility. The location of these services is determined by the patient's care team in partnershipwith patient/family. Level of Care Needed - PT: Assistance with stairs Equipment Recommended - PT: Front-wheeled walker Barriers to Discharge Home: Current functional status, Fall risk Clinical Impression of today's session: Pt continues to present below baseline. Pt demonstrating impairments in gait, strength, endurance, balance, and functional transfers. Pt limited this session due to fatigue and dizziness. Pt largely CGA for mobility this session. Pt would continue to benefit from skilled acute PT to address deficits. Rehab potential: Mr. Lagunas has Good potential to achieve established physical therapy goals withinthe time frame outlined below. Tiered PT Evaluation Codes: Comorbid Conditions: Cardiopulmonary disease, Renal disease Personal Factors: Age, Needs assistive device Examination elements: 3 Clinical Presentation: Evolving Clinical Decision Making: Moderate complexity clinical decision making Functional Goals: PT Inpatient Goals PT Goal #1: Pt will transfer supine<>sit supervision in order to decrease burden of care PT Goal #2: Pt will transfer sit<>stand supervision with least restrictive assistive device inorder to increase functional independence PT Goal #3: Pt will ambulate 40m mod I with least restrictive assistive device in order to improve functional mobility PT Goal #4: Pt will negotiate 1 step no hand rail and 10-12 with hand rail in order to navigate homeenvironment Plan Patient agrees with the plan of care and goals. Treatment Plan: Plan: Plan of care initiated PT Frequency: 5 times per week PT Inpatient Duration : Until goals are met or hospital discharge Requires Inpatient Follow-Up: Yes PT - Next Inpatient Appointment: 12/07/21 PT Plan Comments: assess bed mobility; progress transfers, LE strengthening exercises, and gait training as pt able; stair training prior to discharge Treatment interventions may include: Treatment/Interventions: Therapeutic exercise, Therapeutic functional activity, Neuromuscular re-education, Gait training, Self-care/home management Billing: Time Spent with Patient Evaluations PT Eval - Mod Complexity: 10 min Therapeutic Interventions Gait Training (min): 19 min Therapeutic Exercise (min): 15 min Time Tracking Total Timed Units (min): 34 min Total Treatment Time (min): 44 min Ginny Weathers P.T., D.P.T. Rehana Headley O.T. - 12/06/2021 2:15 AM CDT Occupational Therapy Acute Hospital Inpatient Evaluation/Treatment SUBJECTIVE Patient's Name: Leidy Lagunas Referring/Attending Provider: Dario Wiggins M.D. Medical Diagnosis: Coronary Artery Disease With Stable Angina (HCC) [I25.118] Preoperative Examination Cardiovascular [Z01.810] Atherosclerotic Heart Disease Of [place] Coronary Artery Without Angina Pectoris [I25.10] Atherosclerotic Heart Disease [place] Coronary Artery With Angina Pectoris (HCC) [I25.119] Reason for Referral: Occupational Therapy Evaluation and Treatment General Acute OT: Cardiac Onset Date: 12/03/21 Payor: MEDICARE / Plan: MEDICARE A AND B / Product Type: Medicare / PERTINENT MEDICAL / SURGICAL HISTORY: Patient Active Problem List Diagnosis ??? Coronary Artery Disease (Unspecified) ??? Hypertension ??? Hypertension NOS ??? Coronary Artery Disease With Stable Angina (HCC) ??? Hyperlipidemia On Treatment ??? Rhinitis Chronic ??? Polyp Colon ??? Nodule Prostate ??? Ischemic Heart Chronic Disease ??? Lightheadedness ??? Other Chest Pain ??? Fatigue ??? Chronic Kidney Disease (CKD), Stage 3a Glomerular Filtration Rate (GFR) 45 To 59 (HCC) ??? Atherosclerotic Heart Disease Of [place] Coronary Artery Without Angina Pectoris ??? Atherosclerotic Heart Disease [place] Coronary Artery With Angina Pectoris (HCC) ??? Postpericardiotomy Syndrome ??? Bypass Coronary Artery Graft Status Post Past Surgical History: Procedure Laterality Date ??? CABG X 1 - KAI N/A 12/03/2021 Procedure: CORONARY ARTERY BYPASS GRAFT X1, INTERNAL MAMMARY ARTERY.; Surgeon: Dario Wiggins M.D.; Location: [facility] ??? CABG X 2 - VEIN N/A 12/03/2021 Procedure: CORONARY ARTERY BYPASS GRAFT X2, VEIN.; Surgeon: Dario Wiggins M.D.; Location: [facility] ??? CATH ANGIOGRAM N/A 11/11/2021 Procedure: Coronary Angiography; Surgeon: Von Crawford M.D.; Location: [facility] ??? CORONARY ANGIOPLASTY WITH STENT PLACEMENT N/A 10/02/2005 >Percutaneous transluminal coronary angioplasty of the mid LAD, placement of a Cypher drug-eluting stent in ??? HARVEST VEIN ENDOSCOPY LOWER EXTREMITY Left 12/03/2021 Procedure: HARVEST VEIN ENDOSCOPY LOWER EXTREMITY; Surgeon: Dario Wiggins M.D.; Location: [facility] History of Present Illness:Pt presenting s/p CABGx3. 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 Mobility/Functional Transfers Level of [place]: Independent Home Living Type of Home: House Home Layout: Bedroom upstairs, Multi-level Home Access: Stairs to enter without rails Entrance Stairs: Number of Steps: 1/2 step to enter through the garage Bathroom Shower/Tub: Walk-in shower Walk-in shower enclosure type: Sliding/glass door Bathroom Toilet: Standard Bathroom Accessibility: Yes How Accessible: Accessible via walker Home Equipment Gait Devices Owned: Front-wheeled walker, Cane (from ) Bathroom Equipment: Built-in shower seat (feels that seat is low) Family/Caregiver Present: Yes (Daughter and spouse) Patient/Caregiver Goals: None stated Patient Comments: Mr. Lagunas is pleasant and agreeable to therapy evaluation. He has reports of stomach discomfort due to constipation (nurse aware). Staff note increased drowziness into the afternoon. Fall Risk (65 and older) Fall in the last 12 months: No Are you fearful of falling?: Yes Precautions Other Precautions: fall risk OBJECTIVE Leidy's NOHARM modalities were not used during their therapy session. Vitals monitored throughout session; within normal ranges. Somewhat soft blood pressures noted- therapeutic. General ROM / Strength Screening ROM - Upper Extremity Screen: Addressed, no concerns noted ROM - Lower Extremity Screen: Addressed, no concerns noted Strength - Upper Extremity Screen: Addressed, no concerns noted Strength - Lower Extremity Screen: Impaired right & left Strength - Lower Extremity Screen Comments: generalized weakness Cognition Cognitive assessment method: Therapist observations Arousal/Alertness: Appropriate responses to stimuli Attention: Addressed, no concerns noted Attention Comments: Patient is notably drowsy, but is able to attend to therapy commands. Initiation: No difficulty with initiation Orientation: Oriented X4 Following Commands: Follows all commands/directions without difficulty Bed Mobility - Supine to Sit # of Assistants: 1 Level of Assistance: Supervision/Set-up Device: None, Bed rail Cuing: Verbal Comments: Patient demonstrated bed transfer with additional time with good insight into sternal precautions. Reviewed log roll technique. Other Transfers # of Assistants: 1 Transfer Approach: To and from, Ambulating Transfer Equipment: Four-wheeled walker, Gait belt Level of Assistance: Supervision/set-up Assessment/Delivery: Assessed, Instructed, Therapist assisted Comments: Patient performed functional mobility household distances with instruction on sternal guidelines as they apply to daily tasks. Toileting Toileting Location: Toilet Toileting Delivery: Assessed, Instructed, Therapist Assisted, Facilitated Toileting Level of Assistance: Supervision/Set-up Toileting Comments: Patient requested bathroom due to stomach discomfort. Due to known dizziness andsoft blood pressures, additional assist provided. Patient demonstrated toileting process with grossly supervision. Adaptive Interventions Adaptive Intervention/Education: Patient was educated on sternal precautions and how to apply those precautions to activities of daily living and functional transfers. ADL Comments ADL Comments: Instructed on role of occupational therapy in the acute hospital setting with collaborative discussion regarding prior level of function, home set up, and available supports. Patient is limited in today's session secondary to drowsiness/dizziness/stomach discomfort. Team Communication: Patient's nurse was contacted and patient's status was discussed, Discussed patient's care with PT Outcome Measures [facility] Inpatient Short Form: Putting on and taking off regular lower body clothing?: A lot Putting on and taking off regular upper body clothing?: A Little Taking care of personal grooming such as brushing teeth?: None (Seated) Bathing (including washing, rinsing, drying)?: A lot Toileting, which includes using toilet, bedpan, or urinal?: A Little Eating meals?: None Daily Activities Raw Score (max 24): 18 Daily Activities Standardized Score: 38.66 Interpretation: Clinicians answer the [facility] Inpatient Short Form based on observed patient activityand/or clinical judgement (ie. patient can be scored without physically performing each activity) Based on scoring guidelines using the raw score value: Those going to home had an average score at or above 18 Those going to facility had an average score at or below 17 Patient was left in bedside chair at end of session with call light in reach, all needs met and questions answered. Family present. 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 The location of these services is determined by the patient's care team in partnership with patient/family. Level of Care Needed - OT: Other (Comment) (Assist x1 for ADL's and IADL's.) Recommended Adaptive Equipment - OT: Other (Comment) (Ongoing assessment) Barriers to Discharge Home: Current functional status, Fall risk Clinical Impression: Mr. Lgaunas is a pleasant 76 y/o who is s/p coronary artery bypass graft. He reports being independent at baseline and lives with his spouse. Today, he is limited secondary to post surgical weakness, impaired balance, activity tolerance, and stomach discomfort/drowsiness. He demonstrated functional mob ility and bed mobility with grossly supervision-contact guard assistance, however, due to dizziness,short distances completed. Patient and family instructed on sternal precautions and how to apply them to daily tasks. He is below his functional baseline and warrants continued skilled occupational health and safety adviser apy to maximize functional independence and safety. Rehab potential: Mr. Lagunas has good potential to achieve established occupational therapy goals within the time frame outlined below. Tiered OT Evaluation Codes: Personal Factors: Age, Needs assistive device Occupational Profile and History review: Expanded Performance Deficits: 3 - 5 performance deficits Evaluation Complexity: Moderate Functional Goals: OT Goal #1: Patient will complete toileting with modified independence in order to promote return toprior level of function. OT Goal #2: Patient will complete standing grooming with modified independence to promote return to prior level of function. OT Goal #3: Patient will complete lower body dressing with modified independence to promote return to prior level of function. OT Goal #4: Patient will verbalize sternal precautions independently when prompted to promote safe participation in daily tasks. Plan Occupational Therapy Attestation Statement: Patient agrees with the plan of care and goals. OT Frequency: OT Amount: 1 visit per day OT Frequency: 5 times per week OT Inpatient Duration : Until goals are met or hospital discharge Requires Inpatient OT Follow-Up: Yes OT - Next Inpatient Appointment: 12/07/21 Plan: Plan of care initiated OT Plan Comments: Next session: Progress mobility as appropriate, lower body dressing, review precautions. Treatment interventions may include: Treatment Interventions: Therapeutic exercise, Therapeutic functional activity, Self-care/home management Billing: Time Spent with Patient Evaluations OT Eval - Mod Complexity: 12 min Therapeutic Interventions Home Management Training (min): 15 min Time Tracking Total Timed Units (min): 15 min Total Treatment Time (min): 27 min Rehana Headley O.T. Dahlia Hussein CEP - 12/05/2021 10:43 AM CDTAssociated Order(s): IP CONSULT TO CARDIAC REHABILITATION Cardiac Rehabilitation Referral Reason for Visit: [facility] consultation for referral to cardiac rehabilitation. Liaison met with the patient/family to discuss cardiac rehabilitation referral. Patient/family was provided with progressive verbal and printed home-going exercise guidelines. Patient/family understands and agrees with the exercise guidelines. 1. Participation in a Phase II cardiac rehabilitation program is recommended. Patient was informed about what cardiac rehabilitation has to offer and why it is beneficial. The plan of care for the rehabilitation program consists of risk factor modification, monitored and supervised exercise and assistance in the recovery process with ongoing education and support. Patient is interested in attending acardiac rehabilitation program. 2. Eligibility: CABG 3. Exceptions/exclusions: None. 4. Referral: Patient agreed with referral to a cardiac rehabilitation program. Please see discharge order and/or letter for program details. 5. Appropriate referral information will be sent to the receiving cardiac rehabilitation program as applicable. Patient provided verbal authorization to send relevant materials to the cardiac rehab program. Patient referred to: [facility] [address] [place] [id number] Recommend that the patient check with insurance company to verify coverage of the cost of cardiac rehabilitation program visits. Sharif Watkins M.D. - 12/03/2021 10:16 PM CDT CICU SERVICE -- CONSULT NOTE SUBJECTIVE CHIEF COMPLAINT / REASON FOR VISIT Evaluation of postoperative ECG changes. HISTORY OF PRESENT ILLNESS Mr. Leidy Lagunas is 76-year-old man with known coronary artery disease who is postoperativeday 0 following coronary artery bypass grafting with AVALOS- LAD, SVG-RCA, and SVR-ramus on 12/03/2021 with the [facility]. The CICU was contacted for evaluation of postoperative ECG changes. Briefly, following successful bypass grafting and transfer to the surgical ICU, the patient was successfully extubated, and follow-up resting 12-lead ECG disclosed subtle, atypical ST-segment changes in the anterior and lateral precordium. The patient remained hemodynamically stable, however, and inotropic support was gradually weaned. In response to these electrocardiographic changes, the CICU was contacted. On evaluation of the patient, he endorses mild anterior chest discomfort without associated radiation, feeling fatigued but otherwise well. He denies nausea and/or palpitations. He also denies any respiratory distress, breathing comfortably on minimal oxygen supplementation via nasal cannula. PHYSICAL EXAMINATION BP 153/80 (BP Location: Right arm;Upper) Pulse 80 Temp 36.1 ??C (Axillary) Resp 15 Ht 182.9 cm Wt 92.2 kg SpO2 94% BMI 27.57 kg/m?? General: Patient in no acute distress on evaluation, though he appears fatigued. HEENT: No scleral icterus. Cardiac: Normal S1/S2 with regular rate and rhythm. Triphasic pericardial friction rub diffusely present across the precordium and precludes auscultation of any additional murmurs and/or gallops. Pulmonary: Non-labored breathing with regular respiratory rate and adequate saturations on minimal oxygen supplementation via nasal cannula. Abdomen: Non-distended. Pelvis/rectal: Deferred. Extremities: No lower extremity edema. Musculoskeletal: Midline sternotomy. No reproducible tenderness to palpation along the anterior thorax. Neurologic/psychiatric: Patient alert and oriented to person, place, and time. Answers questions linearly and appropriately. Skin: Well-approximated midline sternotomy. DIAGNOSTIC EVALUATION Laboratory evaluation (12/03/2021) demonstrates stable creatinine consistent with CKD stage II (creatinine 1.1). Resting 12-lead ECGs (12/03/2021) disclose sinus rhythm with regular rate. Concave ST-segment elevation is present throughout the precordium and most limb leads (greatest anterolaterally) with positiveSpodick's sign and NH-segment elevation and ST-segment depression in aVR. T-wave inversion is appreciated in V1 without reciprocal ST-segment changes elsewhere. Follow-up resting 12-lead ECG demonstrates progression of similar findings. Transthoracic echocardiogram (12/03/2021) discloses normal left ventricular chamber size with hyperdynamic function and estimated ejection fraction 70-75%. No regional wall motion abnormalities are appreciated, and no significant valvular heart disease is noted. No pericardial effusion is appreciated. ASSESSMENT and PLAN Mr. Leidy Lagunas is 76-year-old man with known coronary artery disease who is postoperativeday 0 following coronary artery bypass grafting with AVALOS- LAD, SVG-RCA, and SVR-ramus on 12/03/2021 with the [facility]. The CICU was contacted for evaluation of postoperative ECG changes. 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 Findings are inconsistent with acute coronary syndrome, and treatment for such is not indicated. Instead, initiation of colchicine (at 0.6 mg PO bid for initial duration of 3 months) is recommended, pursuing follow-up resting 12-lead ECG as indicated in the event of any clinical change. Given recent operative intervention, NSAID therapy is not advised, though high-dose aspirin therapy (e.g., 650 mg PO tid) could be entertained for anti-inflammatory and analgesic effects. This case was discussed with the referring surgical ICU team and the CICU relationship consultant, Dr. Alfonso Zapata. Please page the CICU team with any further comments, questions, and/or concerns as indicated. Sharif Watkins M.D. 12/03/2021 Associated attestation - Alfonso Zapata M.D. - 12/04/2021 4:04 AM CDT I reviewed the resident/fellow's note and agree with the documented findings and plan of care. The reason the patient is critically ill and the nature of the treatment and management provided by the teaching physician (me) to manage the critically ill patient is: possible STEMI The patient was critically ill during the time that I saw the patient. My Critical Care Time excluding procedures was 35 minutes. ECG has the appearance of pericarditis without evolution or concerning TTE findings to suggest ischemia. He has a rub on exam. Suggest trial of colchicine. Serial ECG's are reasonable to monitor for evolution. documented in this encounter Nursing Notes Kristen Rodriguez R.N. - 12/08/2021 12:00 PM CDT Shift Goals: Clinical Goals for the Shift: Pt will discharge. Identify possible barriers to meeting goals/advancing plan of care: none End of Shift Summary: Pt discharged to home self care with and daughter. PIVs removed. Education completed and questions answered. OCEANOLOGIST reviewed the AVS. Pt stopped at pharmacy. All vital signs stable upon d/c. Electronically signed by: Kristen Rodriguez R.N. 12/08/21 12:21 PM CDT Yadi Ramon R.N. - 12/08/2021 6:19 AM CDT Shift Goals: Clinical Goals for the Shift: pt will report adequate sleep overnight Identify possible barriers to meeting goals/advancing plan of care: none End of Shift Summary: pt reported adequate sleep overnight. Pt was up various times to use bathroom throughout shift. Pain was adequately managed with scheduled tylenol, ice, and rest. VSS throughout shift. Electronically signed by: Yadi Ramon R.N. 12/08/21 6:21 AM CDT Problem: PAIN - ADULT Goal: PT VERBALIZES/DEMONSTRATES ADEQUATE COMFORT LEVEL OR BASELINE Outcome: Progressing Problem: KNOWLEDGE DEFICIT Goal: Patient/family/caregiver demonstrates understanding of disease process, treatment plan, medications, and discharge instructions Outcome: Progressing Problem: INFECTION - ADULT Goal: Absence of infection during hospitalization Outcome: Progressing Problem: SKIN/TISSUE INTEGRITY Goal: Skin/Tissue integrity maintained or improved Outcome: Progressing Goal: Oral and Nasal mucous membranes remain intact Outcome: Progressing Problem: SAFETY ADULT Goal: Maintain a safe environment Outcome: Progressing Problem: DISCHARGE PLANNING Goal: Patient discharge needs identified Outcome: Progressing Problem: SAFETY ADULT - RISK FOR FALL AND OR FALL INJURY Goal: Patient remains free from fall/fall injury Outcome: Progressing Problem: POTENTIAL OR ACTUAL PRESSURE INJURY-ADULT Goal: Manage sensory Perception deficits to maintain and/or improve skin integrity Outcome: Progressing Goal: Maintain optimal skin moisture to ensure or improve skin integrity Outcome: Progressing Goal: Achieve optimal activity and/or mobility to maintain or improve skin integrity Outcome: Progressing Goal: Nutrient intake appropriate for improving, restoring or maintaining skin integrity Outcome: Progressing Goal: Minimize friction and/or shear to maintain or improve skin integrity Outcome: Progressing Problem: Compromised Skin Integrity Goal: Skin/Tissue integrity maintained or improved Outcome: Progressing Goal: Oral and Nasal mucous membranes remain intact Outcome: Progressing Goal: Incisions, wounds, or drain sites healing without S/S of infection Outcome: Progressing Problem: Incontinence and/or Moisture Goal: Skin integrity is maintained or improved Outcome: Progressing Spencer Penny R.N. - 12/07/2021 5:15 AM CDT Problem: PAIN - ADULT Goal: PT VERBALIZES/DEMONSTRATES ADEQUATE COMFORT LEVEL OR BASELINE Outcome: Progressing Problem: KNOWLEDGE DEFICIT Goal: Patient/family/caregiver demonstrates understanding of disease process, treatment plan, medications, and discharge instructions Outcome: Progressing Problem: INFECTION - ADULT Goal: Absence of infection during hospitalization Outcome: Progressing Problem: SKIN/TISSUE INTEGRITY Goal: Skin/Tissue integrity maintained or improved Outcome: Progressing Goal: Oral and Nasal mucous membranes remain intact Outcome: Progressing Problem: SAFETY ADULT Goal: Maintain a safe environment Outcome: Progressing Problem: DISCHARGE PLANNING Goal: Patient discharge needs identified Outcome: Progressing Problem: SAFETY ADULT - RISK FOR FALL AND OR FALL INJURY Goal: Patient remains free from fall/fall injury Outcome: Progressing Problem: POTENTIAL OR ACTUAL PRESSURE INJURY-ADULT Goal: Manage sensory Perception deficits to maintain and/or improve skin integrity Outcome: Progressing Goal: Maintain optimal skin moisture to ensure or improve skin integrity Outcome: Progressing Goal: Achieve optimal activity and/or mobility to maintain or improve skin integrity Outcome: Progressing Goal: Nutrient intake appropriate for improving, restoring or maintaining skin integrity Outcome: Progressing Goal: Minimize friction and/or shear to maintain or improve skin integrity Outcome: Progressing Problem: Compromised Skin Integrity Goal: Skin/Tissue integrity maintained or improved Outcome: Progressing Goal: Oral and Nasal mucous membranes remain intact Outcome: Progressing Goal: Incisions, wounds, or drain sites healing without S/S of infection Outcome: Progressing Problem: Incontinence and/or Moisture Goal: Skin integrity is maintained or improved Outcome: Progressing Shift Goals: Clinical Goals for the Shift: Pt will report good nights sleep with adequate pain control Identify possible barriers to meeting goals/advancing plan of care: beeping End of Shift Summary: Pt converted to Afib around 2145, tolerating well with rates in 80s-90s. Bloodpressure stable. Service notified and will continue to monitor. Pt slept well, up to use bathroom. Pt did complain that beeping from machines was keeping him awake. Did move some equipment in room to help pt get better sleep. Pain well controlled with tylenol. All vital signs stable. Electronically signed by: Annmarie Penny R.N. 12/07/21 5:22 AM CDT Farnaz Garcia L.R.T., RRT-NPS - 12/07/2021 4:52 AM CDT Per nursing, patient started the nocturnal oxygen assessment on room air. The patient has remained on room air all night. Electronically signed by: Lisa Marroquin RRT-NPS 12/07/21 4:53 AM CDT Farnaz aGrcia L.R.T., RRT-NPS - 12/06/2021 10:22 PM CDT RT discussed with nursing staff and they have been informed about the nocturnal home oxygen study. They know that once the patient has fallen asleep to notify the monitoring lab ([id number]) and to place the patient on room air and document it in the flowsheets. After 5 minutes (consecutively or accumulatively) of desaturation below 88% they should receive a call or should call the monitoring lab to confirm within an hour or 2 of starting the study and increase the oxygen by 1 liter. If desaturation continues, the oxygen should be increased accordingly by 1 liter each time. DO NOT REMOVE PATIENT FROM MACHINE UNTIL THE MORNING. RT will check back in with nursing around 5-6 am. Electronically signed by Farnaz Garcia L.R.T., MAJOR LEAGUE BASEBALL UMPIRE-SHUTDOWN COORDINATOR at 12/06/2021 10:23 PM CDT Teresa Romero R.N. - 12/06/2021 6:36 AM CDT Shift Goals: Clinical Goals for the Shift: Patient will report adequate pain control. Identify possible barriers to meeting goals/advancing plan of care: none End of Shift Summary: Patient reported adequate pain control with tylenol and ice. Slept well overnight. Hypertensive in AM - amlodipine given early per sx. Electronically signed by: Teresa Romero R.N. 12/06/21 6:36 AM CDT Colleen Klein R.N. - 12/05/2021 10:36 PM CDT Shift Goals: Clinical Goals for the Shift: pt will report adequate pain control Identify possible barriers to meeting goals/advancing plan of care: None End of Shift Summary: Patient ambulated x2 and was up to chair. PT/OT was consulted to help regain strength and mobility after surgery. Pain controlled with PRN tylenol. Unable to wean patient off 0.5Lnasal cannula. Vital signs remained stable. Electronically signed by: Colleen Klein R.N. 12/05/21 10:38 PM CDT Problem: PAIN - ADULT Goal: PT VERBALIZES/DEMONSTRATES ADEQUATE COMFORT LEVEL OR BASELINE Outcome: Progressing Problem: KNOWLEDGE DEFICIT Goal: Patient/family/caregiver demonstrates understanding of disease process, treatment plan, medications, and discharge instructions Outcome: Progressing Problem: INFECTION - ADULT Goal: Absence of infection during hospitalization Outcome: Progressing Problem: SKIN/TISSUE INTEGRITY Goal: Skin/Tissue integrity maintained or improved Outcome: Progressing Goal: Oral and Nasal mucous membranes remain intact Outcome: Progressing Problem: SAFETY ADULT Goal: Maintain a safe environment Outcome: Progressing Problem: DISCHARGE PLANNING Goal: Patient discharge needs identified Outcome: Progressing Problem: SAFETY ADULT - RISK FOR FALL AND OR FALL INJURY Goal: Patient remains free from fall/fall injury Outcome: Progressing Problem: POTENTIAL OR ACTUAL PRESSURE INJURY-ADULT Goal: Manage sensory Perception deficits to maintain and/or improve skin integrity Outcome: Progressing Goal: Maintain optimal skin moisture to ensure or improve skin integrity Outcome: Progressing Goal: Achieve optimal activity and/or mobility to maintain or improve skin integrity Outcome: Progressing Goal: Nutrient intake appropriate for improving, restoring or maintaining skin integrity Outcome: Progressing Goal: Minimize friction and/or shear to maintain or improve skin integrity Outcome: Progressing Problem: Compromised Skin Integrity Goal: Skin/Tissue integrity maintained or improved Outcome: Progressing Goal: Oral and Nasal mucous membranes remain intact Outcome: Progressing Goal: Incisions, wounds, or drain sites healing without S/S of infection Outcome: Progressing Problem: Incontinence and/or Moisture Goal: Skin integrity is maintained or improved Outcome: Progressing Teresa Romero R.N. - 12/05/2021 5:52 AM CDT Shift Goals: Clinical Goals for the Shift: Patient will sleep well overnight and remain safe. Identify possible barriers to meeting goals/advancing plan of care: none End of Shift Summary: Patient slept intermittently overnight. Pain managed with tylenol and ice pack. Oxy avoided due to visual hallucinations. 2 doses of hydralazine given for hypertension. Mag IV given for increased ectopy. Electronically signed by: Teresa Romero R.N. 12/05/21 5:53 AM CDT Ayanna Serrano M.S. R.N. - 12/04/2021 7:44 PM CDT Shift Goals: Clinical Goals for the Shift: Patient will orient to unit Identify possible barriers to meeting goals/advancing plan of care: chest tubes, nausea End of Shift Summary: Patients VSS upon arrival to PCU and t/o shift. Anti-HTN meds restarted this afternoon. Tolerated 0.5-2 L NC today. Reported adequate pain management w/ pharmacological and non-pharmacological measures. Patient nauseated most of the afternoon though later reported relief w/ antiemetic. Site care and bath done.Patient states all needs met at this time. Problem: PAIN - ADULT Goal: PT VERBALIZES/DEMONSTRATES ADEQUATE COMFORT LEVEL OR BASELINE Outcome: Progressing Problem: KNOWLEDGE DEFICIT Goal: Patient/family/caregiver demonstrates understanding of disease process, treatment plan, medications, and discharge instructions Outcome: Progressing Problem: INFECTION - ADULT Goal: Absence of infection during hospitalization Outcome: Progressing Problem: SKIN/TISSUE INTEGRITY Goal: Skin/Tissue integrity maintained or improved Outcome: Progressing Goal: Oral and Nasal mucous membranes remain intact Outcome: Progressing Problem: SAFETY ADULT Goal: Maintain a safe environment Outcome: Progressing Problem: DISCHARGE PLANNING Goal: Patient discharge needs identified Outcome: Progressing Problem: SAFETY ADULT - RISK FOR FALL AND OR FALL INJURY Goal: Patient remains free from fall/fall injury Outcome: Progressing Problem: POTENTIAL OR ACTUAL PRESSURE INJURY-ADULT Goal: Manage sensory Perception deficits to maintain and/or improve skin integrity Outcome: Progressing Goal: Maintain optimal skin moisture to ensure or improve skin integrity Outcome: Progressing Goal: Achieve optimal activity and/or mobility to maintain or improve skin integrity Outcome: Progressing Goal: Nutrient intake appropriate for improving, restoring or maintaining skin integrity Outcome: Progressing Goal: Minimize friction and/or shear to maintain or improve skin integrity Outcome: Progressing Problem: Compromised Skin Integrity Goal: Skin/Tissue integrity maintained or improved Outcome: Progressing Goal: Oral and Nasal mucous membranes remain intact Outcome: Progressing Goal: Incisions, wounds, or drain sites healing without S/S of infection Outcome: Progressing Problem: Incontinence and/or Moisture Goal: Skin integrity is maintained or improved Outcome: Progressing Electronically signed by: Ayanna Serrano M.S., R.N. 12/04/21 7:47 PM CDT Johanna Robledo L.R.T., MAJOR LEAGUE BASEBALL UMPIRE-[facility] - 12/03/2021 3:54 PM CDT Leidy Lagunas is a 76 y.o. male admitted to CVICU following CABG x2 on 12/03/2021. Significant Events During Current Stay: 12/03: CABG x2, extubated O2 Device: Nasal cannula RAT Due/ Score: Due 12/04 @ 1999 Shift Summary: Patient extubated to a nasal cannula at 1735. Plan of Care: Continue to monitor and assess respiratory status per ICU protocol. Anesthesia bag/ mask at bedside. Electronically signed by: Lisa Waite, MAJOR LEAGUE BASEBALL UMPIRE-[employer] 12/03/21 5:47 PM CDT documented in this encounter OR Notes Op Note - Dario Wiggins M.D. - 12/03/2021 9:54 AM CDT Pre-op Diagnosis Coronary Artery Disease With Stable Angina (HCC),Preoperative Examination Cardiovascular Post-op Diagnosis Coronary Artery Disease With Stable Angina (HCC),Preoperative Examination Cardiovascular A wheelchair van operator first responder actively participated and was necessary for one or more of the following: opening,exposure and visualization during the case, maintaining hemostasis, wound closure resulting in its safe and expeditious completion. Findings As expected. Complications None Operative Note Narrative After a briefing was performed, the patient was brought to the operating room and laid supine on theOR table. After endotracheal anesthesia was obtained, the monitoring lines were placed. The patient was positioned, prepped and draped in the usual sterile fashion. Preoperative echocardiography shows normal biventricular systolic function and mild AR and mild MR. A primary median sternotomy was performed with dissection carried into the anterior mediastinum. We harvested the left internal mammary artery in a skeletonized manner. We harvested two lengths of greater saphenous vein from the left leg using endoscopic means. We heparinized the patient and prepared the conduits. We entered the pericardial space and cannulated the ascending aorta for arterial perfusion and the right atrium for venous collection. When the ACT was appropriate, we went on cardiopulmonary bypass and placed the needle tack vent in the ascending aorta. We cross-clamped the aorta and arrested the heart with antegrade cold [place] cardioplegia. Subsequent doses were given at appropriate time intervals during the clamp time period. We began by anastomosing the saphenous vein to the middle right coronary artery with a running 7-0 Prolene. This was led to the ascending aorta and immediately attached to a site created by a 5 mm aortic punch with a running 6-0 Prolene. We inspected the left side of the heart and we encountered diffusely diseased vessels including the proximal ramus intermedius and the obtuse marginal. The ramus did emerge back from underneath the muscle jail down the obtuse margin, so we anastomosed the s aphenous vein to this area with a running 7-0 Prolene. It was a small vessel and also had diffuse disease but it had reasonable flow after the anastomosis upon instillation of saline through the syringe. The vein was led to the ascending aorta and immediately attached to a site created with a running 6-0 Prolene. The left internal mammary artery was anastomosed to the left anterior descending coronary artery with a running 8-0 Prolene. The bulldog clamp was removed and warm blood was infused into the aortic root. Once a rhythm was regained, the cross-clamp was removed. We placed chest tubes and optimized medications. We began to ventilate and then weaned off CPB. Initial hemodynamics were good, how ever, there was some ventricular fibrillation and low pressures, so we went back on CPB and converted the rhythm. We placed atrial and ventricular pacing wires. We AV paced the patient at 90 bpm and then the patient was able to be atrially paced. We again optimized medications. We had to repair the AVALOS to LAD anastomosis with a repair stitch, as well as the SVG to ramus vein graft. Then we slowly weaned off CPB and removed the venous cannula. There was very good biventricular systolic function at this time. The tack vent was removed. We administered Protamine. We removed the arterial cannula at the appropriate time during volume administration. We obtained hemostasis and optimal hemodynamics and when these criteria were satisfactory, the patient's sternum was closed with interrupted stainless steel wires and zip ties. The fascia, subcutaneous tissue and skin were all closed in the usual sterilefashion. We then observed the patient for chest tube output and hemodynamics and when these criteriawere satisfactory, the patient was transferred to the ICU in stable condition. Dario Wiggins M.D. documented in this encounter Miscellaneous Notes Hospital Course - Jaramillo, Ceci ILMA Smith C.N.P., M.S.N. - 12/04/2021 4:29 AM CDT Mr. Leidy Lagunas is a 76 y.o. male admitted on 12/03/2021 for coronary artery bypass grafting with Dr. Wiggins. Comorbidities include: coronary artery disease, hypertension, hyperlipidemia, CKD, former smoker Hospital Course ICU: Following surgery on 12/03, Mr. Leidy Lagunas was admitted to CV surgery ICU intubated on vasoactive infusions. He was weaned from mechanical ventilation and extubated. He had 12 lead ECG showing STelevation in nghia-lateral leads. He endorsed chest discomfort. Echocardiogram revealed no new wallmotion abnormalities with ejection fraction 65-70%. No evidence of pericardial effusion. He is diagnosed with postpericardiotomy syndrome. He was weaned from vasoactive infusions. PCU: Leidy Lagunas transferred to the PCU on 12/04. While on the PCU, he experienced atrial fibrillation with controlled ventricular rates and then would convert to sinus rhythm. At the time of dismissal he remained in SR. SURGICAL PROCEDURE(S) CABG x 3 12/03/21 AVALOS to LAD SVG-distal RCA SVG-Ramus Provider Role Dario Wiggins M.D. Primary Lance Hearn M.D. Affirmative Action Specialist Dismissal Vitals: Admission Weight: 92.2 kg Blood pressure 147/78, pulse 63, temperature 36.7 ??C, temperature source Oral, resp. rate 15, height 182.9 cm, weight 89.8 kg, SpO2 94 %. PHYSICAL EXAM: General: Alert and oriented. No apparent distress. Heart: Regular rate and rhythm, no murmurs or rubs noted. Lungs: Clear to auscultation bilaterally. Abdomen: Soft, nontender. Extremities: Distal pulses intact. No edema noted bilaterally. Incision: Wound approximated, clean, dry, and intact. No erythema or other clinical signs of infection. Sternum stable documented in this encounter Plan of Treatment Scheduled Referrals Name Type Priority Associated Diagnoses Order S chedule External referral Outpatient Referral Routine Bypass Coronary Ordered: cardiac rehab Artery Graft Status 022 program (non-[place]) Post documented as of this encounter Procedures Procedure Name Priority Date/Time Associated Diagnosis Comme nts CBC WITHOUT Routine 12/08/2021 5:28 Results for DIFFERENTIAL, B AM CDT this procedu re are in the results section. BASIC METABOLIC Routine 12/08/2021 5:28 Results f or PANEL, S/P AM CDT this procedure are in the results section. DX CHEST PORTABLE 1 RAD - Routine 12/07/2021 7:20 Resu lts for VIEW (most inpatients AM CDT this proced ure and all are in the outpatients) results section. NOCTURNAL OXYGEN Routine 12/07/2021 6:37 STUDY - RT AM CDT CBC WITHOUT Routine 12/07/2021 5:58 Results for DIFFERENTIAL, B AM CDT this procedu re are in the results section. BASIC METABOLIC Routine 12/07/2021 5:58 Results f or PANEL, S/P AM CDT this procedure are in the results section. ECG Routine 12/07/2021 5:29 Results for AM CDT this procedure are in the results section. DX CHEST AP OR PA RAD - Routine 12/06/2021 4:46 Result s for AND LATERAL 2 VIEWS (most inpatients PM CDT this procedure and all are in the outpatients) results section. DX ABDOMEN PORTABLE RAD - Routine 12/06/2021 Results for ANTERIOR POSTERIOR 1 (most inpatients 12:15 PM CDT thi s procedure VIEW and all are in the outpatients) results section. GLUCOSE POCT, B Routine 12/06/2021 Results for 11:37 AM CDT this procedure are in the results section. CBC WITHOUT Routine 12/06/2021 5:35 Results for DIFFERENTIAL, B AM CDT this procedu re are in the results section. BASIC METABOLIC Routine 12/06/2021 5:35 Results f or PANEL, S/P AM CDT this procedure are in the results section. POTASSIUM, S/P Timed 12/05/2021 1:22 Results fo r PM CDT this procedure are in the results section. MAGNESIUM, S Routine 12/05/2021 6:02 Results for AM CDT this procedure are in the results section. BASIC METABOLIC Routine 12/05/2021 6:02 Results f or PANEL, S/P AM CDT this procedure are in the results section. CBC WITHOUT Routine 12/05/2021 6:01 Results for DIFFERENTIAL, B AM CDT this procedu re are in the results section. BASIC METABOLIC Timed 12/04/2021 Results for PANEL, S/P 11:28 PM CDT this procedure are in the results section. GLUCOSE POCT, B Routine 12/04/2021 9:14 Results f or PM CDT this procedure are in the results section. GLUCOSE POCT, B Routine 12/04/2021 6:09 Results f or PM CDT this procedure are in the results section. GLUCOSE POCT, B Routine 12/04/2021 Results for 11:59 AM CDT this procedure are in the results section. BASIC METABOLIC STAT 12/04/2021 Results for PANEL, S/P 10:30 AM CDT this procedure are in the results section. POTASSIUM, S/P Timed 12/04/2021 9:44 Results fo r AM CDT this procedure are in the results section. BASIC METABOLIC Timed 12/04/2021 8:20 Results f or PANEL, S/P AM CDT this procedure are in the results section. GLUCOSE POCT, B Routine 12/04/2021 8:19 Results f or AM CDT this procedure are in the results section. GLUCOSE POCT, B Routine 12/04/2021 7:38 Results f or AM CDT this procedure are in the results section. GLUCOSE POCT, B Routine 12/04/2021 7:07 Results f or AM CDT this procedure are in the results section. GLUCOSE POCT, B Routine 12/04/2021 6:23 Results f or AM CDT this procedure are in the results section. DX CHEST PORTABLE RAD - Routine 12/04/2021 4:39 Result s for WITH AM ROUNDS 1 (most inpatients AM CDT this pr ocedure VIEW and all are in the outpatients) results section. PATIENT STATUS Timed 12/04/2021 4:24 Results fo r AM CDT this procedure are in the results section. ACTIVATED PARTIAL Timed 12/04/2021 4:24 Results for THROMBOPLASTIN TIME AM CDT this pro cedure (APTT), P are in the results section. PROTHROMBIN TIME Timed 12/04/2021 4:24 Results for (PT), P AM CDT this procedure are in the results section. CBC WITHOUT Timed 12/04/2021 4:24 Results for DIFFERENTIAL, B AM CDT this procedu re are in the results section. LACTATE, B/P Timed 12/04/2021 4:24 Results for AM CDT this procedure are in the results section. ABG W/O COOX Timed 12/04/2021 4:24 Results for AM CDT this procedure are in the results section. CALCIUM, IONIZED, Timed 12/04/2021 4:24 Results for S/B AM CDT this procedure are in the results section. BASIC METABOLIC Timed 12/04/2021 4:24 Results f or PANEL, S/P AM CDT this procedure are in the results section. GLUCOSE POCT, B Routine 12/04/2021 3:54 Results f or AM CDT this procedure are in the results section. GLUCOSE POCT, B Routine 12/04/2021 1:59 Results f or AM CDT this procedure are in the results section. GLUCOSE POCT, B Routine 12/04/2021 Results for 12:55 AM CDT this procedure are in the results section. GLUCOSE POCT, B Routine 12/04/2021 Results for 12:05 AM CDT this procedure are in the results section. GLUCOSE POCT, B Routine 12/03/2021 Results for 11:02 PM CDT this procedure are in the results section. (TTE) 2D ECHO STAT 12/03/2021 Results for DOPPLER COLOR 10:21 PM CDT this procedure are in the results section. GLUCOSE POCT, B Routine 12/03/2021 Results for 10:15 PM CDT this procedure are in the results section. PATIENT STATUS Timed 12/03/2021 9:46 Results fo r PM CDT this procedure are in the results section. VENOUS BLOOD GAS Timed 12/03/2021 9:46 Results for W/COOX, B PM CDT this procedure are in the results section. PH BLOOD GAS STAT 12/03/2021 9:45 Results for PM CDT this procedure are in the results section. CALCIUM, IONIZED, STAT 12/03/2021 9:45 Results for S/B PM CDT this procedure are in the results section. PATIENT STATUS STAT 12/03/2021 9:42 Results fo r PM CDT this procedure are in the results section. ABG W/COOX STAT 12/03/2021 9:42 Results for PM CDT this procedure are in the results section. POTASSIUM, S/P STAT 12/03/2021 9:42 Results fo r PM CDT this procedure are in the results section. LACTATE, B/P STAT 12/03/2021 9:42 Results for PM CDT this procedure are in the results section. GLUCOSE POCT, B Routine 12/03/2021 9:41 Results f or PM CDT this procedure are in the results section. ECG STAT 12/03/2021 9:14 Results for PM CDT this procedure are in the results section. ECG Routine 12/03/2021 8:31 Results for PM CDT this procedure are in the results section. GLUCOSE POCT, B Routine 12/03/2021 8:02 Results f or PM CDT this procedure are in the results section. REMOTE OXIMETRY STAT 12/03/2021 8:01 MONITORING CONT. PM CDT LACTATE, B/P Routine 12/03/2021 6:56 Results for PM CDT this procedure are in the results section. GLUCOSE POCT, B Routine 12/03/2021 6:51 Results f or PM CDT this procedure are in the results section. GLUCOSE POCT, B Routine 12/03/2021 5:58 Results f or PM CDT this procedure are in the results section. GLUCOSE POCT, B Routine 12/03/2021 4:57 Results f or PM CDT this procedure are in the results section. AIRWAY CARE Routine 12/03/2021 3:49 PM CDT MECHANICAL Routine 12/03/2021 3:49 VENTILATOR PM CDT DX CHEST PORTABLE 1 Routine 12/03/2021 3:47 Resul ts for VIEW PM CDT this procedure are in the results section. PATIENT STATUS STAT 12/03/2021 3:37 Results fo r PM CDT this procedure are in the results section. ABG W/O COOX STAT 12/03/2021 3:37 Results for PM CDT this procedure are in the results section. ACTIVATED PARTIAL STAT 12/03/2021 3:36 Results for THROMBOPLASTIN TIME PM CDT this pro cedure (APTT), P are in the results section. PROTHROMBIN TIME STAT 12/03/2021 3:36 Results for (PT), P PM CDT this procedure are in the results section. FIBRINOGEN, P STAT 12/03/2021 3:36 Results for PM CDT this procedure are in the results section. CBC WITHOUT STAT 12/03/2021 3:36 Results for DIFFERENTIAL, B PM CDT this procedu re are in the results section. LACTATE, B/P STAT 12/03/2021 3:36 Results for PM CDT this procedure are in the results section. BASIC METABOLIC STAT 12/03/2021 3:36 Results f or PANEL, S/P PM CDT this procedure are in the results section. GLUCOSE POCT, B Routine 12/03/2021 3:35 Results f or PM CDT this procedure are in the results section. REMOTE OXIMETRY STAT 12/03/2021 3:00 MONITORING CONT. PM CDT REMOTE OXIMETRY STAT 12/03/2021 3:00 MONITORING CONT. PM CDT (JODI) - Routine 12/03/2021 2:50 Results for INTRAOPERATIVE WITH PM CDT this pro cedure COLOR (PROBE NOT are in the PLACED) results section. LACTATE, B STAT 12/03/2021 2:33 Results for PM CDT this procedure are in the results section. PATIENT STATUS STAT 12/03/2021 2:33 Results fo r PM CDT this procedure are in the results section. SODIUM, B STAT 12/03/2021 2:33 Results for PM CDT this procedure are in the results section. ABG W/COOX STAT 12/03/2021 2:33 Results for PM CDT this procedure are in the results section. POTASSIUM, B STAT 12/03/2021 2:33 Results for PM CDT this procedure are in the results section. GLUCOSE, WHOLE BLOOD STAT 12/03/2021 2:33 Resu lts for PM CDT this procedure are in the results section. CALCIUM, IONIZED, STAT 12/03/2021 2:33 Results for S/B PM CDT this procedure are in the results section. AUTOLOGOUS RED BLOOD Routine 12/03/2021 2:31 CELLS-CELL SALVAGE PM CDT AUTOLOGOUS RED BLOOD Routine 12/03/2021 2:06 CELLS-CELL SALVAGE PM CDT LACTATE, B STAT 12/03/2021 1:52 Results for PM CDT this procedure are in the results section. PATIENT STATUS STAT 12/03/2021 1:52 Results fo r PM CDT this procedure are in the results section. SODIUM, B STAT 12/03/2021 1:52 Results for PM CDT this procedure are in the results section. ABG W/COOX STAT 12/03/2021 1:52 Results for PM CDT this procedure are in the results section. POTASSIUM, B STAT 12/03/2021 1:52 Results for PM CDT this procedure are in the results section. GLUCOSE, WHOLE BLOOD STAT 12/03/2021 1:52 Resu lts for PM CDT this procedure are in the results section. ACTIVATED PARTIAL STAT 12/03/2021 1:52 Results for THROMBOPLASTIN TIME PM CDT this pro cedure (APTT), P are in the results section. PROTHROMBIN TIME STAT 12/03/2021 1:52 Results for (PT), P PM CDT this procedure are in the results section. FIBRINOGEN, P STAT 12/03/2021 1:52 Results for PM CDT this procedure are in the results section. PLATELETS, B STAT 12/03/2021 1:52 Results for PM CDT this procedure are in the results section. CALCIUM, IONIZED, STAT 12/03/2021 1:52 Results for S/B PM CDT this procedure are in the results section. ACT, POCT, B Routine 12/03/2021 1:50 Results for PM CDT this procedure are in the results section. ACT, POCT, B Routine 12/03/2021 1:11 Results for PM CDT this procedure are in the results section. ACT, POCT, B Routine 12/03/2021 Results for 12:50 PM CDT this procedure are in the results section. GLUCOSE POCT, B Routine 12/03/2021 Results for 12:49 PM CDT this procedure are in the results section. ACT, POCT, B Routine 12/03/2021 Results for 12:21 PM CDT this procedure are in the results section. ACT, POCT, B Routine 12/03/2021 Results for 11:53 AM CDT this procedure are in the results section. ACT, POCT, B Routine 12/03/2021 Results for 11:22 AM CDT this procedure are in the results section. SODIUM, B STAT 12/03/2021 Results for 11:21 AM CDT this procedure are in the results section. ABG W/COOX STAT 12/03/2021 Results for 11:21 AM CDT this procedure are in the results section. POTASSIUM, B STAT 12/03/2021 Results for 11:21 AM CDT this procedure are in the results section. GLUCOSE, WHOLE BLOOD STAT 12/03/2021 Results for 11:21 AM CDT this procedure are in the results section. CALCIUM, IONIZED, STAT 12/03/2021 Results fo r S/B 11:21 AM CDT this procedure are in the results section. ACT, POCT, B Routine 12/03/2021 Results for 10:49 AM CDT this procedure are in the results section. HEMOGLOBIN (HGB), Routine 12/03/2021 Results fo r POCT, B 10:48 AM CDT this procedure are in the results section. LACTATE, B STAT 12/03/2021 9:22 Results for AM CDT this procedure are in the results section. PATIENT STATUS STAT 12/03/2021 9:22 Results fo r AM CDT this procedure are in the results section. SODIUM, B STAT 12/03/2021 9:22 Results for AM CDT this procedure are in the results section. ABG W/COOX STAT 12/03/2021 9:22 Results for AM CDT this procedure are in the results section. POTASSIUM, B STAT 12/03/2021 9:22 Results for AM CDT this procedure are in the results section. GLUCOSE, WHOLE BLOOD STAT 12/03/2021 9:22 Resu lts for AM CDT this procedure are in the results section. CALCIUM, IONIZED, STAT 12/03/2021 9:22 Results for S/B AM CDT this procedure are in the results section. ACT, POCT, B Routine 12/03/2021 9:02 Results for AM CDT this procedure are in the results section. HARVEST VEIN 12/03/2021 7:40 Coronary Artery ENDOSCOPY LOWER AM CDT Disease With Stable EXTREMITY Angina (HCC) Preoperative Examination Cardiovascular CORONARY ARTERY 12/03/2021 7:40 Coronary Artery BYPASS GRAFT X 2 - AM CDT Disease With Stable VEIN Angina (HCC) Preoperative Examination Cardiovascular CORONARY ARTERY 12/03/2021 7:40 Coronary Artery BYPASS GRAFT X 1 - AM CDT Disease With Stable INTERNAL MAMMARY Angina (HCC) ARTERY Preoperative Examination Cardiovascular documented in this encounter Results (ABNORMAL) CBC without Differential (12/08/2021 5:28 AM CDT) Patholo gist Method Time Signature Hemoglobin 10.7 (L) 13.2 - 12/08/2021 DTL 16.6 g/dL 6:09 AM CDT Hematocrit 31.6 (L) 38.3 - 12/08/2021 DTL 48.6 % 6:09 AM CDT Erythrocytes 3.59 (L) 4.35 - 12/08/2021 DTL 5.65 6:09 AM CDT x10(12)/L MCV 88.0 78.2 - 12/08/2021 DTL 97.9 fL 6:09 AM CDT RBC Distrib Width 12.8 11.8 - 12/08/2021 DTL 14.5 % 6:09 AM CDT Platelet Count 191 135 - 317 12/08/2021 DTL x10(9)/L 6:09 AM CDT Leukocytes 6.1 3.4 - 9.6 12/08/2021 DTL x10(9)/L 6:09 AM CDT Specimen Anatomical Collection Method Collection Time Receive d Time (Source) Location / / Volume Laterality Blood (Blood, 12/08/2021 5:28 AM 12/09/19 5:58 Arterial) CDT AM CDT Lance Hearn M.D. LAB BLOOD ADD-ON Performing Organization Address City/State/ZIP Code Phon e Number [facility] - [address] [place], [place] [address] [facility] [place] [address] [facility] [address] [facility] (ABNORMAL) Basic Metabolic Panel (12/08/2021 5:28 AM CDT) Analysis Performed At Patho logist Time Signature Potassium, S 4.2 3.6 - 5.2 12/08/2021 DTL mmol/L 6:27 AM CDT Sodium, S 135 135 - 145 12/08/2021 DTL mmol/L 6:27 AM CDT Chloride, S 102 98 - 107 12/08/2021 DTL mmol/L 6:27 AM CDT Bicarbonate, S 25 22 - 29 12/08/2021 DTL mmol/L 6:27 AM CDT Anion Gap 8 7 - 15 12/08/2021 DTL 6:27 AM CDT BUN (Blood Urea 24 8 - 24 12/08/2021 DTL Nitrogen), S mg/dL 6:27 AM CDT Creatinine 1.38 (H) 0.74 - 12/08/2021 DTL 1.35 mg/dL 6:27 AM CDT eGFR-Non 49 (L) >=60 12/08/2021 DTL Black/ mL/min/BSA 6:27 AM CDT [place] Comment: ----ADDITIONAL INFORMATION---- Estimated GFR calculated using the 2009 CKD_EPI creatinine equation. eGFR-Black/ 56 (L) >=60 mL/min/BSA 2021 6:27 AM CDT DTL Comment: ----ADDITIONAL INFORMATION---- Estimated GFR calculated using the 2009 CKD_EPI creatinine equation. Calcium, Total, S 8.0 (L) 8.8 - 10.2 mg/dL 12/08/2021 6:27 AM CDT DTL Glucose, S 99 70 - 140 mg/dL 12/08/2021 6:27 AM CDT D TL Specimen Anatomical Collection Method Collection Time Receive d Time (Source) Location / / Volume Laterality Blood (Blood, 12/08/2021 5:28 AM 12/09/19 6:09 Arterial) CDT AM CDT Lance Hearn M.D. LAB BLOOD ADD-ON Performing Organization Address City/State/ZIP Code Phon e Number [facility] - [address] [place], [place] [address] [facility] [place] [address] [facility] [address] DX Chest Portable 1 View (12/07/2021 7:20 AM CDT) Anatomical Region Laterality Modality Chest, Thoracic RST LOS, Thoracic ARZ LOS, Thoracic N/A Digital Radiography FLA LOS Specimen (Source) Anatomical Collection Method Collection Time Re ceived Time Location / / Volume Laterality 12/07/2021 7:36 AM CDT Impressions 12/07/2021 7:37 AM CDT Persistent tiny left apical pneumothorax compared to 12/06/2021. Tiny bilateral pleural effusions. Sternotomy with mediastinal c lips. Enlarged cardiac silhouette. Narrative 12/07/2021 7:37 AM CDT EXAM: ??DX CHEST PORTABLE 1 VIEW Procedure Note Cipriano Cantrell M.D. - 12/07/2021Form atting of this note might be different from the original. EXAM: DX CHEST PORTABLE 1 VIEW IMPRESSION: Persistent tiny left apical pneumothorax compared to 12/06/2021. Tiny bilateral pleural effusions. Sternotomy with mediastinal c lips. Enlarged cardiac silhouette. Ceci Jaramillo APRN, C.N.P., M.S.N. IMG DIAGNOSTIC IMAGING PROCEDURES Nocturnal Oxygen Study - RT (12/07/2021 6:37 AM CDT) Narrative This result has an attachment that is no t available. Ceci Jaramillo APRN, C.N.P., M.S.N. RESPIRATORY CARE ORDER IKER Performing Organization Address City/State/ZIP Code Phon e Number [place] (ABNORMAL) CBC without Differential (12/07/2021 5:58 AM CDT) [facility] gist Method Time Signature Hemoglobin 10.5 (L) 13.2 - 12/07/2021 DTL 16.6 g/dL 6:52 AM CDT Hematocrit 30.5 (L) 38.3 - 12/07/2021 DTL 48.6 % 6:52 AM CDT Erythrocytes 3.49 (L) 4.35 - 12/07/2021 DTL 5.65 6:52 AM CDT x10(12)/L MCV 87.4 78.2 - 12/07/2021 DTL 97.9 fL 6:52 AM CDT RBC Distrib Width 13.0 11.8 - 12/07/2021 DTL 14.5 % 6:52 AM CDT Platelet Count 166 135 - 317 12/07/2021 DTL x10(9)/L 6:52 AM CDT Leukocytes 8.5 3.4 - 9.6 12/07/2021 DTL x10(9)/L 6:52 AM CDT Specimen Anatomical Collection Method Collection Time Receive d Time (Source) Location / / Volume Laterality Blood (Blood, 12/07/2021 5:58 AM 12/08/19 22 6:41 Arterial) CDT AM CDT Lance Hearn M.D. LAB BLOOD ADD-ON Performing Organization Address City/State/ZIP Code Phon e Number [facility] - [address] [place], [place] [address] [facility] [place] [place] [address] [facility] [address] [facility] (ABNORMAL) Basic Metabolic Panel (12/07/2021 5:58 AM CDT) Analysis Performed At Patho logist Time Signature Potassium, S 3.8 3.6 - 5.2 12/07/2021 DTL mmol/L 7:13 AM CDT Sodium, S 135 135 - 145 12/07/2021 DTL mmol/L 7:13 AM CDT Chloride, S 98 98 - 107 12/07/2021 DTL mmol/L 7:13 AM CDT Bicarbonate, S 26 22 - 29 12/07/2021 DTL mmol/L 7:13 AM CDT Anion Gap 11 7 - 15 12/07/2021 DTL 7:13 AM CDT BUN (Blood Urea 24 8 - 24 12/07/2021 DTL Nitrogen), S mg/dL 7:13 AM CDT Creatinine 1.41 (H) 0.74 - 12/07/2021 DTL 1.35 mg/dL 7:13 AM CDT eGFR-Non 47 (L) >=60 12/07/2021 DTL Black/ mL/min/BSA 7:13 AM CDT [place] Comment: ----ADDITIONAL INFORMATION---- Estimated GFR calculated using the 2009 CKD_EPI creatinine equation. eGFR-Black/ 55 (L) >=60 mL/min/BSA 2021 7:13 AM CDT DTL Comment: ----ADDITIONAL INFORMATION---- Estimated GFR calculated using the 2009 CKD_EPI creatinine equation. Calcium, Total, S 8.1 (L) 8.8 - 10.2 mg/dL 12/07/2021 7:13 AM CDT DTL Glucose, S 97 70 - 140 mg/dL 12/07/2021 7:13 AM CDT D TL Specimen Anatomical Collection Method Collection Time Receive d Time (Source) Location / / Volume Laterality Blood (Blood, 12/07/2021 5:58 AM 12/08/19 22 6:56 Arterial) CDT AM CDT Lance Hearn M.D. LAB BLOOD ADD-ON Performing Organization Address City/State/ZIP Code Phon e Number [facility] - [address] [place], [place] [address] [facility] [place] [place] [address] [facility] [address] [facility] ECG 12 Lead (12/07/2021 5:29 AM CDT) [facility] gist Method Time Signature Ventricular 73 BPM MUSE Rate ECG/Min QRSD Interval 100 ms MUSE QT Interval 420 ms MUSE QTC Interval 462 ms MUSE R [place] 4 degrees MUSE T Wave [place] 34 degrees MUSE CODED Atrial MUSE DIAGNOSIS fibrillation CODED Atrial MUSE DIAGNOSIS fibrillation Specimen Anatomical Collection Method Collection Time Receive d Time (Source) Location / / Volume Laterality 12/07/2021 5:29 AM CDT 10:34 AM CDT Impressions MUSE - 12/07/2021 5:35 AM CDT Atrial fibrillation Cannot rule out Inferior infarct Nonspecific T wave abnormality When compared with ECG of 03-DEC-2021 21 :14, Atrial fibrillation has replaced Sinus r hythm ST no longer elevated in Anterolateral l lizet Nonspecific T wave abnormality now evide nt in Lateral leads Reviewed by RUSH Alford Narrative This result has an attachment that is no t available. Procedure Note Shawn Thompson M.D. - 12/09/2021Formatt ing of this note might be different from the original. IMPRESSION: Atrial fibrillation Cannot rule out Inferior infarct Nonspecific T wave abnormality When compared with ECG of 03-DEC-2021 21 :14, Atrial fibrillation has replaced Sinus r hythm ST no longer elevated in Anterolateral l lizet Nonspecific T wave abnormality now evide nt in Lateral leads Reviewed by RUSH Alford Ceci Jaramillo APRN C.N.P., M.S.N. ECG ORDERABLES Performing Organization Address City/State/ZIP Code Phon e Number MUSE MUSE NA DX Chest AP or PA and Lateral 2 Views (12/06/2021 4:46 PM CDT) Anatomical Region Laterality Modality Chest, Thoracic RST LOS, Thoracic ARZ LOS, Thoracic N/A Digital Radiography FLA LOS Specimen (Source) Anatomical Collection Method Collection Time Re ceived Time Location / / Volume Laterality 12/06/2021 5:00 PM CDT Impressions 12/06/2021 5:02 PM CDT Comparison is made to multiple prior studies. Interval removal of right IJ CVC, left basilar chest tube, and mediastinal drai ns. Trace left apical and lateral pneumothorax. No discernible right pneumothorax or midlin e shift. Small residual left pleural effusion. Stable cardiac silhouette size. Sternotomy and mediastinal clips. Narrative 12/06/2021 5:02 PM CDT EXAM: ??DX CHEST AP OR PA AND LATERAL 2 VIEWS Procedure Note Woody Matta D.O. - 12/06/2021 EXAM: DX CHEST AP OR PA AND LATERAL 2 EWS IMPRESSION: Comparison is made to multiple prior gold dies. Interval removal of right IJ CVC, left basilar chest tube, and mediastinal drai ns. Trace left apical and lateral pneumothorax. No discernible right pneumothorax or midlin e shift. Small residual left pleural effusion. Stable cardiac silhouette size. Sternotomy and mediastinal clips. Mikel Dougherty APRN.N.P., M.S.N. IMG DIAGNOSTIC IMAGING PROCEDURES DX Abdomen Portable Anterior Posterior 1 View (12/06/2021 12:15 PM CDT) Anatomical Region Laterality Modality Abdomen, Abdominal RST LOS, Abdominal ARZ LOS, N/A Digital Radiography Abdominal FLA LOS Specimen (Source) Anatomical Collection Method Collection Time Re ceived Time Location / / Volume Laterality 12/06/2021 12:47 PM CDT Impressions 12/06/2021 12:47 PM CDT Normal bowel gas pattern. No radiographic findings of obstruction. Degenerative arthritis lumbar spine. Sternotomy. Narrative 12/06/2021 12:47 PM CDT EXAM: ??DX ABDOMEN PORTABLE ANTERIOR POSTERIOR 1 VIEW Procedure Note Kade Martinez M.D. - 12/06/2021Forma tting of this note might be different from the original. EXAM: DX ABDOMEN PORTABLE ANTERIOR POSTE RIOR 1 VIEW IMPRESSION: Normal bowel gas pattern. No radiographi c findings of obstruction. Degenerative arthritis lumbar spine. Sternotomy. Ceci Jaramillo APRN C.N.P., M.S.N. IMG DIAGNOSTIC IMAGING PROCEDURES Glucose, POCT (12/06/2021 11:37 AM CDT) Analysis Performed At Patho logist Time Signature Glucose, POCT, 124 70 - 140 12/06/2021 PCLX B mg/dL 11:42 AM CDT Last Intake 1-2 hours 12/06/2021 PCLX 11:42 AM CDT Specimen Anatomical Collection Method Collection Time Receive d Time (Source) Location / / Volume Laterality Blood 12/06/2021 11:37 12/06/2021 AM CDT 11:42 AM CDT Unknown Provider LAB POCT ORDERABLES-MANUAL Performing Organization Address City/[facility] Phon e Number POC [facility] [address] [place] [address] PCLX [facility] [place] [address] [place] [facility] [address] (ABNORMAL) CBC without Differential (12/06/2021 5:35 AM CDT) [facility] Method Time Signature Hemoglobin 10.9 (L) 13.2 - 12/06/2021 DTL 16.6 g/dL 6:27 AM CDT Hematocrit 32.9 (L) 38.3 - 12/06/2021 DTL 48.6 % 6:27 AM CDT Erythrocytes 3.69 (L) 4.35 - 12/06/2021 DTL 5.65 6:27 AM CDT x10(12)/L MCV 89.2 78.2 - 12/06/2021 DTL 97.9 fL 6:27 AM CDT RBC Distrib Width 13.1 11.8 - 12/06/2021 DTL 14.5 % 6:27 AM CDT Platelet Count 140 135 - 317 12/06/2021 DTL x10(9)/L 7:11 AM CDT Comment: Results confirmed by smear, no clumping or interference seen. Leukocytes 10.4 (H) 3.4 - 9.6 x10(9)/L 12/06/2021 7:11 AM C DT DTL Specimen Anatomical Collection Method Collection Time Receive d Time (Source) Location / / Volume Laterality Blood (Blood, 12/06/2021 5:35 AM 12/07/19 22 6:15 Arterial) CDT AM CDT Lance Hearn M.D. LAB BLOOD ADD-ON Performing Organization Address City/State/ZIP Code Phon e Number [facility] - 200 [place], [place] [address] [facility] [place] [address] Laboratories-[facility] [address] [facility] (ABNORMAL) Basic Metabolic Panel (12/06/2021 5:35 AM CDT) P athologist Signature Potassium, S 4.4 3.6 - 5.2 12/06/2021 DTL mmol/L 6:48 AM CDT Sodium, S 135 135 - 145 12/06/2021 DTL mmol/L 6:48 AM CDT Chloride, S 98 98 - 107 12/06/2021 DTL mmol/L 6:48 AM CDT Bicarbonate, S 28 22 - 29 12/06/2021 DTL mmol/L 6:48 AM CDT Anion Gap 9 7 - 15 12/06/2021 DTL 6:48 AM CDT BUN (Blood Urea 21 8 - 24 12/06/2021 DTL Nitrogen), S mg/dL 6:48 AM CDT Creatinine 1.32 0.74 - 12/06/2021 DTL 1.35 mg/dL 6:48 AM CDT eGFR-Non 51 (L) >=60 12/06/2021 DTL Black/ mL/min/BSA 6:48 AM CDT [place] Comment: ----ADDITIONAL INFORMATION---- Estimated GFR calculated using the 2009 CKD_EPI creatinine equation. eGFR-Black/ 59 (L) >=60 mL/min/BSA 2021 6:48 AM CDT DTL Comment: ----ADDITIONAL INFORMATION---- Estimated GFR calculated using the 2009 CKD_EPI creatinine equation. Calcium, Total, S 8.2 (L) 8.8 - 10.2 mg/dL 12/06/2021 6:48 AM CDT DTL Glucose, S 98 70 - 140 mg/dL 12/06/2021 6:48 AM CDT D TL Specimen Anatomical Collection Method Collection Time Receive d Time (Source) Location / / Volume Laterality Blood (Blood, 12/06/2021 5:35 AM 12/07/19 22 6:31 Arterial) CDT AM CDT Lance Hearn M.D. LAB BLOOD ADD-ON Performing Organization Address City/State/ZIP Code Phon e Number [facility] - [address] Potassium (12/05/2021 1:22 PM CDT) athologist Signature Potassium, S 4.4 3.6 - 5.2 12/05/2021 DTL mmol/L 2:24 PM CDT Specimen Anatomical Collection Method Collection Time Receive d Time (Source) Location / / Volume Laterality Blood (Blood, 12/05/2021 1:22 PM 12/06/19 2:12 Venous) CDT PM CDT Aline Loredo P.A.-C. LAB BLOOD ADD-ON Performing Organization Address City/[facility] Phon e Number [facility] - [address] (ABNORMAL) Magnesium (12/05/2021 6:02 AM CDT) athologist Signature Magnesium, S 2.5 (H) 1.7 - 2.3 12/05/2021 DTL mg/dL 7:11 AM CDT Specimen Anatomical Collection Method Collection Time Receive d Time (Source) Location / / Volume Laterality Blood (Blood, 12/05/2021 6:02 AM 12/06/19 6:54 Venous) CDT AM CDT Dom German APRNNShaniceP., M.S.N. LAB BLOOD ADD-O N Performing Organization Address City/[facility] Phon e Number [facility] [address] (ABNORMAL) Basic Metabolic Panel (12/05/2021 6:02 AM CDT) athologist Signature Potassium, S 5.0 3.6 - 5.2 12/05/2021 DTL mmol/L 7:11 AM CDT Sodium, S 135 135 - 145 12/05/2021 DTL mmol/L 7:11 AM CDT Chloride, S 98 98 - 107 12/05/2021 DTL mmol/L 7:11 AM CDT Bicarbonate, S 29 22 - 29 12/05/2021 DTL mmol/L 7:11 AM CDT Anion Gap 8 7 - 15 12/05/2021 DTL 7:11 AM CDT BUN (Blood Urea 19 8 - 24 12/05/2021 DTL Nitrogen), S mg/dL 7:11 AM CDT Creatinine 1.35 0.74 - 12/05/2021 DTL 1.35 mg/dL 7:11 AM CDT eGFR-Non 50 (L) >=60 12/05/2021 DTL Black/ mL/min/BSA 7:11 AM CDT [place] Comment: ----ADDITIONAL INFORMATION---- Estimated GFR calculated using the 2009 CKD_EPI creatinine equation. eGFR-Black/ 58 (L) >=60 mL/min/BSA 2021 7:11 AM CDT DTL Comment: ----ADDITIONAL INFORMATION---- Estimated GFR calculated using the 2009 CKD_EPI creatinine equation. Calcium, Total, S 8.4 (L) 8.8 - 10.2 mg/dL 12/05/2021 7:11 AM CDT DTL Glucose, S 95 70 - 140 mg/dL 12/05/2021 7:11 AM CDT D TL Specimen Anatomical Collection Method Collection Time Receive d Time (Source) Location / / Volume Laterality Blood (Blood, 12/05/2021 6:02 AM 12/06/19 6:54 Arterial) CDT AM CDT Lance Hearn M.D. LAB BLOOD ADD-ON Performing Organization Address City/State/ZIP Code Phon e Number [facility] - [address] [place], [place] [address] [facility] [place] [address] Laboratories-[facility] [address] (ABNORMAL) CBC without Differential (12/05/2021 6:01 AM CDT) [facility] Method Time Signature Hemoglobin 11.4 (L) 13.2 - 12/05/2021 DTL 16.6 g/dL 6:45 AM CDT Hematocrit 33.3 (L) 38.3 - 12/05/2021 DTL 48.6 % 6:45 AM CDT Erythrocytes 3.75 (L) 4.35 - 12/05/2021 DTL 5.65 6:45 AM CDT x10(12)/L MCV 88.8 78.2 - 12/05/2021 DTL 97.9 fL 6:45 AM CDT RBC Distrib Width 13.7 11.8 - 12/05/2021 DTL 14.5 % 6:45 AM CDT Platelet Count 141 135 - 317 12/05/2021 DTL x10(9)/L 6:45 AM CDT Leukocytes 15.0 (H) 3.4 - 9.6 12/05/2021 DTL x10(9)/L 6:45 AM CDT Specimen Anatomical Collection Method Collection Time Receive d Time (Source) Location / / Volume Laterality Blood (Blood, 12/05/2021 6:01 AM 12/06/19 22 6:38 Arterial) CDT AM CDT Lance Hearn M.D. LAB BLOOD ADD-ON Performing Organization Address City/State/ZIP Code Phon e Number [facility] - [address] [place] [address] [facility] [place] [address] Laboratories-[facility] 200 [facility] (ABNORMAL) Basic Metabolic Panel (12/04/2021 11:28 PM CDT) P athologist Signature Potassium, S 5.1 3.6 - 5.2 12/05/2021 DTL mmol/L 1:53 AM CDT Sodium, S 135 135 - 145 12/05/2021 DTL mmol/L 1:53 AM CDT Chloride, S 98 98 - 107 12/05/2021 DTL mmol/L 1:53 AM CDT Bicarbonate, S 25 22 - 29 12/05/2021 DTL mmol/L 1:53 AM CDT Anion Gap 12 7 - 15 12/05/2021 DTL 1:53 AM CDT BUN (Blood Urea 22 8 - 24 12/05/2021 DTL Nitrogen), S mg/dL 1:53 AM CDT Creatinine 1.34 0.74 - 12/05/2021 DTL 1.35 mg/dL 1:53 AM CDT eGFR-Non 50 (L) >=60 12/05/2021 DTL Black/ mL/min/BSA 1:53 AM CDT [place] Comment: ----ADDITIONAL INFORMATION---- Estimated GFR calculated using the 2009 CKD_EPI creatinine equation. eGFR-Black/ 58 (L) >=60 mL/min/BSA 2021 1:53 AM CDT DTL Comment: ----ADDITIONAL INFORMATION---- Estimated GFR calculated using the 2009 CKD_EPI creatinine equation. Calcium, Total, S 8.3 (L) 8.8 - 10.2 mg/dL 12/05/2021 1:53 AM CDT DTL Glucose, S 110 70 - 140 mg/dL 12/05/2021 1:53 AM CDT D TL Specimen Anatomical Collection Method Collection Time Receive d Time (Source) Location / / Volume Laterality Blood (Blood, 12/04/2021 11:28 12/05/2021 Venous) PM CDT 12:11 AM CDT Dom German APRNNBlake, M.S.N. LAB BLOOD ADD-O N Performing Organization Address City/[facility] Phon e Number [facility] - [address] [place], [place] [address] [facility] [place] [address] [facility] [address] (ABNORMAL) Glucose, POCT (12/04/2021 9:14 PM CDT) Analysis Performed At [facility] logis Time Signature Glucose, POCT, 144 (H) 70 - 140 12/04/2021 PCLX B mg/dL 9:20 PM CDT Site Capillary 12/04/2021 PCLX 9:20 PM CDT Specimen Anatomical Collection Method Collection Time Receive d Time (Source) Location / / Volume Laterality Blood 12/04/2021 9:14 PM 9:20 CDT PM CDT Unknown Provider LAB POCT ORDERABLES-MANUAL Performing Organization Address City/[facility] Phon e Number [facility] [address] [place] [address] [place] [address] [facility] [address] [facility] (ABNORMAL) Glucose, POCT (12/04/2021 6:09 PM CDT) Analysis Performed At [facility] logis Time Signature Glucose, POCT, 154 (H) 70 - 140 12/04/2021 PCLX B mg/dL 6:32 PM CDT Site Capillary 12/04/2021 PCLX 6:32 PM CDT Last Intake 1-2 hours 12/04/2021 PCLX 6:32 PM CDT Specimen Anatomical Collection Method Collection Time Receive d Time (Source) Location / / Volume Laterality Blood 12/04/2021 6:09 PM 6:33 CDT PM CDT Unknown Provider LAB POCT ORDERABLES-MANUAL Performing Organization Address City/State/ZIP Code Phon e Number POC [facility] [address] [place] [address] [place] [address] [place] [facility] 200 [facility] Glucose, POCT (12/04/2021 11:59 AM CDT) Analysis Performed At Patho logist Time Signature Glucose, POCT, 130 70 - 140 12/04/2021 PCLX B mg/dL 12:02 PM CDT Site Capillary 12/04/2021 PCLX 12:02 PM CDT Specimen Anatomical Collection Method Collection Time Receive d Time (Source) Location / / Volume Laterality Blood 12/04/2021 11:59 12/04/2021 AM CDT 12:02 PM CDT Unknown Provider LAB POCT ORDERABLES-MANUAL Performing Organization Address City/[facility] Code Phon e Number POC [facility] [address] [place] [address] [place] [address] [place] [facility] 200 [facility] (ABNORMAL) Basic Metabolic Panel (12/04/2021 10:30 AM CDT) P athologist Signature Potassium, P 4.8 3.6 - 5.2 12/04/2021 STMA mmol/L 10:59 AM CDT Sodium, P 133 (L) 135 - 145 12/04/2021 STMA mmol/L 10:59 AM CDT Chloride, P 99 98 - 107 12/04/2021 STMA mmol/L 10:59 AM CDT Bicarbonate, P 25 22 - 29 12/04/2021 STMA mmol/L 10:59 AM CDT Anion Gap, P 9 7 - 15 12/04/2021 STMA 10:59 AM CDT BUN (Blood Urea 19 8 - 24 12/04/2021 [facility] Nitrogen), P mg/dL 10:59 AM CDT Creatinine 1.34 0.74 - 12/04/2021 STMA 1.35 mg/dL 10:59 AM CDT eGFR-Black/Afri 58 (L) >=60 12/04/2021 STMA can [place] mL/min/BSA 10:59 AM CDT Comment: ----ADDITIONAL INFORMATION---- Estimated GFR calculated using the 2009 CKD_EPI creatinine equation. eGFR Non-Black/ 50 (L) >=60 mL/min/BSA 12/04/2021 10:59 AM CDT STMA [place] Comment: ----ADDITIONAL INFORMATION---- Estimated GFR calculated using the 2009 CKD_EPI creatinine equation. Calcium, Total, P 8.4 (L) 8.8 - 10.2 mg/dL 12/04/2021 10:5 9 AM CDT STMA Glucose, P 141 (H) 70 - 140 mg/dL 12/04/2021 10:59 AM CDT STMA Specimen Anatomical Collection Method Collection Time Receive d Time (Source) Location / / Volume Laterality Blood (Blood, 12/04/2021 10:30 12/04/2021 Venous) AM CDT 10:36 AM CDT Darcy Mcclure P.A.-C. LAB BLOOD ADD-ON Performing Organization Address City/State/ZIP Code Phon e Number [facility] - [address] [place], [place] [address] [place] [address] Laboratories-[facility] [address] Potassium (12/04/2021 9:44 AM CDT) P athologist Signature Potassium, P 4.8 3.6 - 5.2 12/04/2021 STMA mmol/L 9:58 AM CDT Specimen Anatomical Collection Method Collection Time Receive d Time (Source) Location / / Volume Laterality Blood (Blood, 12/04/2021 9:44 AM 12/05/19 9:47 Venous) CDT AM CDT Prudencio Schulte P.A.-C. LAB BLOOD ADD-ON Performing Organization Address City/State/ZIP Code Phon e Number [facility] - [address] [place], [place] [address] [facility] [place] [address] Laboratories[facility] 200 [facility] (ABNORMAL) Basic Metabolic Panel (12/04/2021 8:20 AM CDT) P athologist Signature Potassium, P 3.5 (L) 3.6 - 5.2 12/04/2021 ST[facility] mmol/L 8:49 AM CDT Sodium, P 139 135 - 145 12/04/2021 [facility] mmol/L 8:49 AM CDT Chloride, P 110 (H) 98 - 107 12/04/2021 [facility] mmol/L 8:49 AM CDT Bicarbonate, P 22 22 - 29 12/04/2021 [facility] mmol/L 8:49 AM CDT Anion Gap, P 7 7 - 15 12/04/2021 STMA 8:49 AM CDT BUN (Blood Urea 15 8 - 24 12/04/2021 [facility] Nitrogen), P mg/dL 8:49 AM CDT Creatinine 1.01 0.74 - 12/04/2021 STMA 1.35 mg/dL 8:49 AM CDT eGFR-Black/Afri 82 >=60 12/04/2021 STMA can [place] mL/min/BSA 8:49 AM CDT Comment: ----ADDITIONAL INFORMATION---- Estimated GFR calculated using the 2009 CKD_EPI creatinine equation. eGFR Non-Black/ 71 >=60 mL/min/BSA 8:49 AM CDT STMA Comment: ----ADDITIONAL INFORMATION---- Estimated GFR calculated using the 2009 CKD_EPI creatinine equation. Calcium, Total, P 6.4 (CL) 8.8 - 10.2 mg/dL 12/04/2021 9:02 AM CDT STMA Glucose, P 100 70 - 140 mg/dL 12/04/2021 8:49 AM CDT S TMA Specimen Anatomical Collection Method Collection Time Receive d Time (Source) Location / / Volume Laterality Blood (Blood, 12/04/2021 8:20 AM 12/05/19 8:32 Venous) CDT AM CDT Prudencio Schulte P.A.-C. LAB BLOOD ADD-ON Performing Organization Address City/State/ZIP Code Phon e Number [facility] - 200 [place], [place] [address] [facility] [place] [address] Laboratories[facility] 200 [facility] Glucose, POCT (12/04/2021 8:19 AM CDT) Analysis Performed At Patho logist Time Signature Glucose, POCT, 118 70 - 140 12/04/2021 PCLX B mg/dL 8:24 AM CDT Site ARTLINE 12/04/2021 PCLX 8:24 AM CDT Last Intake > 4 hours 12/04/2021 PCLX 8:24 AM CDT Specimen Anatomical Collection Method Collection Time Receive d Time (Source) Location / / Volume Laterality Blood 12/04/2021 8:19 AM 2 8:24 CDT AM CDT Unknown Provider LAB POCT ORDERABLES-MANUAL Performing Organization Address City/State/ZIP Code Phon e Number POC [facility] [address] [place] [address] [place] [address] [place] [facility] 200 [facility] Glucose, POCT (12/04/2021 7:38 AM CDT) P athologist Signature Glucose, POCT, 120 70 - 140 12/04/2021 PCLX B mg/dL 7:39 AM CDT Site ARTLINE 12/04/2021 PCLX 7:39 AM CDT Specimen Anatomical Collection Method Collection Time Receive d Time (Source) Location / / Volume Laterality Blood 12/04/2021 7:38 AM 2 7:39 CDT AM CDT Unknown Provider LAB POCT ORDERABLES-MANUAL Performing Organization Address City/State/ZIP Code Phon e Number POC [facility] LAB SERVICES [address] [place] [address] [place] [address] [place] [facility] 200 [facility] Glucose, POCT (12/04/2021 7:07 AM CDT) P athologist Signature Glucose, POCT, 138 70 - 140 12/04/2021 PCLX B mg/dL 7:09 AM CDT Site ARTLINE 12/04/2021 PCLX 7:09 AM CDT Last Intake NPO 12/04/2021 PCLX 7:09 AM CDT Specimen Anatomical Collection Method Collection Time Receive d Time (Source) Location / / Volume Laterality Blood 12/04/2021 7:07 AM 2 7:09 CDT AM CDT Unknown Provider LAB POCT ORDERABLES-MANUAL Performing Organization Address City/[facility]/ZIP Code Phon e Number POC [facility] [address] [place] [address] [place] [address] [place] [facility] 200 [facility] Glucose, POCT (12/04/2021 6:23 AM CDT) athologist Signature Glucose, POCT, 136 70 - 140 12/04/2021 PCLX B mg/dL 7:09 AM CDT Site ARTLINE 12/04/2021 PCLX 7:09 AM CDT Last Intake NPO 12/04/2021 PCLX 7:09 AM CDT Specimen Anatomical Collection Method Collection Time Receive d Time (Source) Location / / Volume Laterality Blood 12/04/2021 6:23 AM 2 7:09 CDT AM CDT Unknown Provider LAB POCT ORDERABLES-MANUAL Performing Organization Address City/[facility]/ZIP [facility] Phon e Number POC [facility] [address] [place] [address] [place] [address] [place] [facility] 200 [facility] DX Chest Portable with AM Rounds 1 View (12/04/2021 4:39 AM CDT) Anatomical Region Laterality Modality Chest, Thoracic RST LOS, Thoracic ARZ LOS, Thoracic N/A Digital Radiography FLA LOS Specimen (Source) Anatomical Collection Method Collection Time Re ceived Time Location / / Volume Laterality 12/04/2021 6:09 AM CDT Impressions 12/04/2021 6:10 AM CDT Since yesterday, the endotracheal tube has been removed. No additional significant change. Sternotomy wires, mediastinal cl ips, and mediastinal drains. Left basilar chest tube. Right IJ CVC with tip in the mid SVC. No defin ite residual pneumothorax. Narrative 12/04/2021 6:10 AM CDT EXAM: ??DX CHEST PORTABLE WITH AM ROUNDS 1 VIEW Procedure Note Wilian Sellers M.D., Ph.D. - 2 EXAM: DX CHEST PORTABLE WITH AM ROUNDS 1 VIEW IMPRESSION: Since yesterday, the endotracheal tube h as been removed. No additional significant change. Sternotomy wires, mediastinal cl ips, and mediastinal drains. Left basilar chest tube. Right IJ CVC with tip in the mid SVC. No defin ite residual pneumothorax. Lance LOW DIAGNOSTIC IMAGING PROC EDURES (ABNORMAL) Calcium, Ionized (12/04/2021 4:24 AM CDT) athologist Signature Calcium, 4.57 (L) 4.65 - 12/04/2021 [facility] Ionized, B 5.30 mg/dL 4:31 AM CDT Specimen Anatomical Collection Method Collection Time Receive d Time (Source) Location / / Volume Laterality Blood 12/04/2021 4:24 AM 4:29 CDT AM CDT Prudencio Hernandez.-C. LAB BLOOD NON ADD-ON Performing Organization Address City/State/ZIP Code Phon e Number [facility] - 200 [place], [place] [address] [place] [address] [place] [address] Lactate (12/04/2021 4:24 AM CDT) athologist Signature Lactate, P 0.9 0.5 - 2.2 12/04/2021 DTL mmol/L 5:20 AM CDT Specimen Anatomical Collection Method Collection Time Receive d Time (Source) Location / / Volume Laterality Blood (Blood, 12/04/2021 4:24 AM 12/05/19 22 5:20 Arterial) CDT AM CDT Prudencio MansfieldAShanice-C. LAB BLOOD NON ADD-ON Performing Organization Address City/[facility] Code Phon e Number [facility] - [address] [place] [address] Patient Status (12/04/2021 4:24 AM CDT) athologist Signature O2 Flow 4.0 L/min 12/04/2021 STMA 4:29 AM CDT Device NC 12/04/2021 [facility]MA 4:29 AM CDT Spont. 11 12/04/2021 STMA breaths/min 4:29 AM CDT Specimen Anatomical Collection Method Collection Time Receive d Time (Source) Location / / Volume Laterality Blood 12/04/2021 4:24 AM 4:29 CDT AM CDT Lance Hearn M.D. LAB BLOOD NON ADD-ON Performing Organization Address City/[facility] Code Phon e Number [facility] - 200 [place], [place] [address] [place] [address] Laboratories-[address] (ABNORMAL) CBC without Differential (12/04/2021 4:24 AM CDT) [facility] Method Time Signature Hemoglobin 11.5 (L) 13.2 - 12/04/2021 DTL 16.6 g/dL 4:58 AM CDT Hematocrit 33.1 (L) 38.3 - 12/04/2021 DTL 48.6 % 4:58 AM CDT Erythrocytes 3.77 (L) 4.35 - 12/04/2021 DTL 5.65 4:58 AM CDT x10(12)/L MCV 87.8 78.2 - 12/04/2021 DTL 97.9 fL 4:58 AM CDT RBC Distrib Width 13.4 11.8 - 12/04/2021 DTL 14.5 % 4:58 AM CDT Platelet Count 158 135 - 317 12/04/2021 DTL x10(9)/L 4:58 AM CDT Leukocytes 14.4 (H) 3.4 - 9.6 12/04/2021 DTL x10(9)/L 4:58 AM CDT Specimen Anatomical Collection Method Collection Time Receive d Time (Source) Location / / Volume Laterality Blood (Blood, 12/04/2021 4:24 AM 12/05/19 4:42 Arterial) CDT AM CDT Lance Hearn M.D. LAB BLOOD ADD-ON Performing Organization Address City/[facility]/ZIP Code Phon e Number [facility] - 200 [place], [place] [address] [facility] [place] [address] Laboratories[facility] 200 [facility] (ABNORMAL) Basic Metabolic Panel (12/04/2021 4:24 AM CDT) P athologist Signature Potassium, S 5.6 (H) 3.6 - 5.2 12/04/2021 DTL mmol/L 5:22 AM CDT Sodium, S 134 (L) 135 - 145 12/04/2021 DTL mmol/L 5:22 AM CDT Chloride, S 104 98 - 107 12/04/2021 DTL mmol/L 5:22 AM CDT Bicarbonate, S 24 22 - 29 12/04/2021 DTL mmol/L 5:22 AM CDT Anion Gap 6 (L) 7 - 15 12/04/2021 DTL 5:22 AM CDT BUN (Blood Urea 21 8 - 24 12/04/2021 DTL Nitrogen), S mg/dL 5:22 AM CDT Creatinine 1.26 0.74 - 12/04/2021 DTL 1.35 mg/dL 5:22 AM CDT eGFR-Non 54 (L) >=60 12/04/2021 DTL Black/ mL/min/BSA 5:22 AM CDT [place] Comment: ----ADDITIONAL INFORMATION---- Estimated GFR calculated using the 2009 CKD_EPI creatinine equation. eGFR-Black/ 63 >=60 mL/min/BSA 2021 5:22 AM CDT DTL Comment: ----ADDITIONAL INFORMATION---- Estimated GFR calculated using the 2009 CKD_EPI creatinine equation. Calcium, Total, S 7.8 (L) 8.8 - 10.2 mg/dL 12/04/2021 5:22 AM CDT DTL Glucose, S 140 70 - 140 mg/dL 12/04/2021 5:22 AM CDT D TL Specimen Anatomical Collection Method Collection Time Receive d Time (Source) Location / / Volume Laterality Blood (Blood, 12/04/2021 4:24 AM 12/05/19 5:02 Arterial) CDT AM CDT Lance Hearn M.D. LAB BLOOD ADD-ON Performing Organization Address City/State/ZIP Code Phon e Number [facility] - 200 [place], [place] [address] [facility] [place] [address] Laboratories-[address] (ABNORMAL) Blood Gas without Coox, Arterial (12/04/2021 4:24 AM CDT) P athologist Signature pO2 98 83 - 108 12/04/2021 ST[facility] mm Hg 4:31 AM CDT pCO2 50 (H) 35 - 48 mm 12/04/2021 [facility] Hg 4:31 AM CDT pH 7.34 (L) 7.35 - 12/04/2021 [facility] 7.45 pH 4:31 AM CDT Base Excess 1 -2 - 3 12/04/2021 [facility] mmol/L 4:31 AM CDT HCO3 27 (H) 22 - 26 12/04/2021 [facility] mmol/L 4:31 AM CDT Arterial Art Line 12/04/2021 [facility] Sample Site 4:31 AM CDT Comment: Gerald's test not done. Specimen Anatomical Collection Method Collection Time Receive d Time (Source) Location / / Volume Laterality Blood (Blood, 12/04/2021 4:24 AM 12/05/19 22 4:29 Arterial Line) CDT AM CDT Lance Hearn M.D. LAB BLOOD NON ADD-ON Performing Organization Address City/State/ZIP Code Phon e Number [facility] - 200 [place], [place] [address] [facility] [place] [address] [facility]-[address] APTT (Activated Partial Thromboplastin Time) (12/04/2021 4:24 AM CDT) P athologist Signature Activated 26 25 - 37 sec 12/04/2021 DTL Partial 5:16 AM CDT Thrombopl Time, P Specimen Anatomical Collection Method Collection Time Receive d Time (Source) Location / / Volume Laterality Blood (Blood, 12/04/2021 4:24 AM 12/05/19 22 4:42 Arterial) CDT AM CDT Lance Hearn M.D. LAB BLOOD ADD-ON Performing Organization Address City/[facility]/ZIP Code Phon e Number [facility] - 200 [place], [place] [address] [place] [address] [facility] 200 [facility] (ABNORMAL) Prothrombin Time (PT) (12/04/2021 4:24 AM CDT) [facility] gist Method Time Signature Prothrombin 13.0 (H) 9.4 - 12.5 12/04/2021 DTL Time, P sec 5:16 AM CDT INR 1.2 0.9 - 1.1 12/04/2021 DT 5:16 AM CDT Comment: ----ADDITIONAL INFORMATION---- Standard intensity warfarin therapeutic range: 2.0 to 3.0 ?? High intensity warfarin therapeutic rang e: 2.5 to 3.5 Specimen Anatomical Collection Method Collection Time Receive d Time (Source) Location / / Volume Laterality Blood (Blood, 12/04/2021 4:24 AM 12/05/19 4:42 Arterial) CDT AM CDT Lance Hearn M.D. LAB BLOOD ADD-ON Performing Organization Address City/State/ZIP Code Phon e Number [facility] - [address] [place], [place] [address] [place] [address] [facility] [address] [facility] Glucose, POCT (12/04/2021 3:54 AM CDT) athologist Signature Glucose, POCT, 140 70 - 140 12/04/2021 PCL[facility] B mg/dL 3:56 AM CDT Site ARTLINE 12/04/2021 PCLX 3:56 AM CDT Specimen Anatomical Collection Method Collection Time Receive d Time (Source) Location / / Volume Laterality Blood 12/04/2021 3:54 AM 3:56 CDT AM CDT Unknown Provider LAB POCT ORDERABLES-MANUAL Performing Organization Address City/State/ZIP Code Phon e Number [facility] [address] [place] [address] [place] [address] [place] [facility] (ABNORMAL) Glucose, POCT (12/04/2021 1:59 AM CDT) athologist Signature Glucose, POCT, 148 (H) 70 - 140 12/04/2021 [facility] B mg/dL 2:00 AM CDT Site ARTLINE 12/04/2021 PCLX 2:00 AM CDT Specimen Anatomical Collection Method Collection Time Receive d Time (Source) Location / / Volume Laterality Blood 12/04/2021 1:59 AM 2:00 CDT AM CDT Unknown Provider LAB POCT ORDERABLES-MANUAL Performing Organization Address City/State/ZIP Code Phon e Number POC [facility] [address] [place] [address] [place] [address] [place] [facility] [address] Glucose, POCT (12/04/2021 12:55 AM CDT) P athologist Signature Glucose, POCT, 138 70 - 140 12/04/2021 PCLX B mg/dL 12:57 AM CDT Site ARTLINE 12/04/2021 PCLX 12:57 AM CDT Specimen Anatomical Collection Method Collection Time Receive d Time (Source) Location / / Volume Laterality Blood 12/04/2021 12:55 12/04/2021 AM CDT 12:57 AM CDT Unknown Provider LAB POCT ORDERABLES-MANUAL Performing Organization Address City/[facility]/ZIP Code Phon e Number POC [facility] [address] [place] [address] [place] [address] [place] [facility] [address] Glucose, POCT (12/04/2021 12:05 AM CDT) P athologist Signature Glucose, POCT, 138 70 - 140 12/04/2021 PCLX B mg/dL 12:07 AM CDT Site ARTLINE 12/04/2021 PCLX 12:07 AM CDT Specimen Anatomical Collection Method Collection Time Receive d Time (Source) Location / / Volume Laterality Blood 12/04/2021 12:05 12/04/2021 AM CDT 12:07 AM CDT Unknown Provider LAB POCT ORDERABLES-MANUAL Performing Organization Address City/State/ZIP Code Phon e Number POC [facility] [address] [place] [address] [place] [address] [place] [facility] [address] (ABNORMAL) Glucose, POCT (12/03/2021 11:02 PM CDT) P athologist Signature Glucose, POCT, 156 (H) 70 - 140 12/03/2021 [facility]CL[facility] B mg/dL 11:03 PM CDT Site ARTLINE 12/03/2021 PCLX 11:03 PM CDT Specimen Anatomical Collection Method Collection Time Receive d Time (Source) Location / / Volume Laterality Blood 12/03/2021 11:02 12/03/2021 PM CDT 11:03 PM CDT Unknown Provider LAB POCT ORDERABLES-MANUAL Performing Organization Address City/State/ZIP Code Phon e Number POC [facility] [address] [place] [address] PCLX [facility] [place] [address] [place] [facility] [address] (TTE) 2D ECHO DOPPLER COLOR (12/03/2021 10:21 PM CDT) athologist Signature Ejection MC CV EIMS Fraction RA Pressure 5 MC CV EIMS Anatomical Region Laterality Modality Echocardiography Specimen (Source) Anatomical Collection Method Collection Time Re ceived Time Location / / Volume Laterality 12/03/2021 9:40 PM CDT Impressions 12/03/2021 10:16 PM CDT The scope of this echocardiogram was limited to assessment of regional wall motion abnormalities in the setting of new ST elevation. Recommend a future complete echocardiogram if clinically indicated. LEFT VENTRICLE:Normal left ventricular c hamber size. Normal left ventricular wall thickness. Hyperdynamic left ventricular systolic function. Abnormal ventricular septal motion due to pacing. No regional wall motion abnormalities. RIGHT VENTRICLE:Normal right ventricular chamber size. Normal right ventricular systolic function. ATRIA: CARDIAC VALVES:Trivial aortic valve regu rgitation. Normal mitral valve. Normal tricuspid valve. Mild tricuspid valve regurgitation. OTHER ECHO FINDINGS:Normal inferior vena cava size with normal inspiratory collapse (>50%). No ??pericardial effusion. For the complete report, see the Order-L evel Documents. Narrative 12/03/2021 10:16 PM CDT For the complete report, see the Order-Level Documents. Final Impressions 1. Limited emergency echo to assess dhiraj onal wall motion. 2. Normal left ventricular chamber size, no regional wall motion abnormalities Hyperdynamic systolic function. ??Estimated ejection fraction 65-70%. 3. Normal right ventricular chamber size , normal systolic function. 4. No ??significant valvular heart disea se. 5. No ??pericardial effusion. Procedure Note Lisa Castillo M.D., M.B.A. - 12/03/2021For matting of this note might be different from the original. For the complete report, see the Order-L evel Documents. Final Impressions 1. Limited emergency echo to assess dhiraj onal wall motion. 2. Normal left ventricular chamber size, no regional wall motion abnormalities Hyperdynamic systolic function. Estimated ejection fraction 65-70%. 3. Normal right ventricular chamber size , normal systolic function. 4. No significant valvular heart disease . 5. No pericardial effusion. Findings The scope of this echocardiogram was bassett ited to assessment of regional wall motion abnormalities in the setting of new ST elevation. Recommend a future complete echocardiogram if clinically indicated. LEFT VENTRICLE:Normal left ventricular c hamber size. Normal left ventricular wall thickness. Hyperdynamic left ventricular systolic function. Abnormal ventricular septal motion due to pacing. No regional wall motion abnormalities. RIGHT VENTRICLE:Normal right ventricular chamber size. Normal right ventricular systolic function. ATRIA: CARDIAC VALVES:Trivial aortic valve regu rgitation. Normal mitral valve. Normal tricuspid valve. Mild tricuspid valve regurgitation. OTHER ECHO FINDINGS:Normal inferior vena cava size with normal inspiratory collapse (>50%). No pericardial effusion. For the complete report, see the Order-L evel Documents. Prudencio Schulte P.A.-C. CV ECHO PROCEDURES (ABNORMAL) Glucose, POCT (12/03/2021 10:15 PM CDT) P athologist Signature Glucose, POCT, 177 (H) 70 - 140 12/03/2021 PCLX B mg/dL 10:17 PM CDT Specimen Anatomical Collection Method Collection Time Receive d Time (Source) Location / / Volume Laterality Blood 12/03/2021 10:15 12/03/2021 PM CDT 10:17 PM CDT Unknown Provider LAB POCT ORDERABLES-MANUAL Performing Organization Address City/State/ZIP Code Phon e Number POC [facility] [address] [place] [address] PCLX [facility] [place] [address] [place] [facility] [address] Patient Status (12/03/2021 9:46 PM CDT) P athologist Signature O2 Flow 4.0 L L/min 12/03/2021 [facility] 9:50 PM CDT Device NC 12/03/2021 [facility] 9:50 PM CDT Spont. 16 12/03/2021 [facility] breaths/min 9:50 PM CDT Specimen Anatomical Collection Method Collection Time Receive d Time (Source) Location / / Volume Laterality Blood 12/03/2021 9:46 PM 9:50 CDT PM CDT Prudencio Schulte P.A.-C. LAB BLOOD NON ADD-ON Performing Organization Address City/State/ZIP Code Phon e Number [facility] - [address] [place] [address] [facility] [place] [address] [facility] 200 [facility] (ABNORMAL) Blood Gas with Coox, Venous (12/03/2021 9:46 PM CDT) Patholo gist Method Time Signature Venous pO2 40 Not applicable 12/03/2021 [facility] mm Hg 9:53 PM CDT Venous pCO2 46 41 - 51 mm Hg 12/03/2021 [facility] 9:53 PM CDT Venous pH 7.28 (L) 7.32 - 7.43 pH 12/03/2021 [facility] 9:53 PM CDT Venous Base -5 Not applicable 12/03/2021 [facility] Excess mmol/L 9:53 PM CDT HCO3 21 Not applicable 12/03/2021 [facility] mmol/L 9:53 PM CDT Hemoglobin, B 12.8 (L) 13.2 - 16.6 12/03/2021 [facility] g/dL 9:53 PM CDT O2Hb 70.9 Not applicable 12/03/2021 [facility] % 9:53 PM CDT COHb <1.0 <3.0 % 12/03/2021 [facility] 9:53 PM CDT MetHb <1.0 <1.5 % 12/03/2021 [facility] 9:53 PM CDT CtO2 12.8 Not applicable 12/03/2021 [facility] vol % 9:53 PM CDT Venous Sample [place] 12/03/2021 [facility] Site 9:53 PM CDT Specimen Anatomical Collection Method Collection Time Receive d Time (Source) Location / / Volume Laterality Blood (Blood, 12/03/2021 9:46 PM 12/04/19 9:50 [place]) CDT PM CDT Prudencio Schulte P.A.-C. LAB BLOOD NON ADD-ON Performing Organization Address City/[facility]/ZIP Code Phon e Number [facility] - [address] [place], [place] [address] [place] [address] (ABNORMAL) pH (12/03/2021 9:45 PM CDT) athologist Signature pH 7.28 (L) 7.35 - 7.45 12/03/2021 [facility] pH 9:53 PM CDT Specimen Anatomical Collection Method Collection Time Receive d Time (Source) Location / / Volume Laterality Blood 12/03/2021 9:45 PM 9:50 CDT PM CDT Prudencio Schulte P.A.-C. LAB HISTORICAL ORDERS Performing Organization Address City/[facility]/ZIP Code Phon e Number [facility] - [address] [place], [place] [address] [place] [address] Calcium, Ionized (12/03/2021 9:45 PM CDT) athologist Signature Calcium, 5.15 4.65 - 5.30 12/03/2021 [facility] Ionized, B mg/dL 9:53 PM CDT Specimen Anatomical Collection Method Collection Time Receive d Time (Source) Location / / Volume Laterality Blood (Blood, 12/03/2021 9:45 PM 12/04/19 9:50 Venous) CDT PM CDT Prudencio Schulte P.A.-C. LAB BLOOD NON ADD-ON Performing Organization Address City/State/ZIP Code Phon e Number [facility] - [address] [place], [place] [address] [place] [address] Patient Status (12/03/2021 9:42 PM CDT) athologist Signature O2 Flow 4.0 L L/min 12/03/2021 [facility] 9:46 PM CDT Device NC 12/03/2021 [facility] 9:46 PM CDT Spont. 16 12/03/2021 [facility] breaths/min 9:46 PM CDT Specimen Anatomical Collection Method Collection Time Receive d Time (Source) Location / / Volume Laterality Blood 12/03/2021 9:42 PM 9:46 CDT PM CDT Prudencio Schulte P.A.-C. LAB BLOOD NON ADD-ON Performing Organization Address City/State/ZIP Code Phon e Number [facility] - [address] [place] [address] [address] [place] [address] [facility] 200 [facility] (ABNORMAL) Blood Gas with Coox, Arterial (12/03/2021 9:42 PM CDT) athologist Signature pO2 90 83 - 108 12/03/2021 [facility] mm Hg 9:50 PM CDT pCO2 40 35 - 48 mm 12/03/2021 [facility] Hg 9:50 PM CDT pH 7.30 (L) 7.35 - 12/03/2021 [facility] 7.45 pH 9:50 PM CDT Base Excess -6 (L) -2 - 3 12/03/2021 [facility] mmol/L 9:50 PM CDT HCO3 19 (L) 22 - 26 12/03/2021 [facility] mmol/L 9:50 PM CDT Hemoglobin, B 12.8 (L) 13.2 - 12/03/2021 [facility] 16.6 g/dL 9:50 PM CDT O2Hb 95.2 94.0 - 12/03/2021 [facility] 98.0 % 9:50 PM CDT COHb <1.0 <3.0 % 12/03/2021 [facility] 9:50 PM CDT MetHb <1.0 <1.5 % 12/03/2021 [facility] 9:50 PM CDT CtO2 17.3 (L) 18.0 - 12/03/2021 [facility] 21.0 vol % 9:50 PM CDT Arterial Art Line 12/03/2021 [facility] Sample Site 9:50 PM CDT Comment: Gerald's test not done. Specimen Anatomical Collection Method Collection Time Receive d Time (Source) Location / / Volume Laterality Blood (Blood, 12/03/2021 9:42 PM 12/04/19 9:46 Arterial) CDT PM CDT Prudencio ChandraCShanice LAB BLOOD NON ADD-ON Performing Organization Address City/[facility] Code Phon e Number [facility] - [address] [place], [place] [address] [place] [address] [facility] [address] [facility] Potassium (12/03/2021 9:42 PM CDT) P athologist Signature Potassium, P 4.9 3.6 - 5.2 12/03/2021 [facility] mmol/L 10:02 PM CDT Specimen Anatomical Collection Method Collection Time Receive d Time (Source) Location / / Volume Laterality Blood (Blood, 12/03/2021 9:42 PM 12/04/19 9:46 Venous) CDT PM CDT Prudencio MansfieldAShanice-C. LAB BLOOD ADD-ON Performing Organization Address City/[facility]/ZIP Code Phon e Number [facility] - [address] [place], [place] [address] [place], [place] [address] [address] [place] [address] [facility] (ABNORMAL) Lactate (12/03/2021 9:42 PM CDT) P athologist Signature Lactate, P 7.6 (H) 0.5 - 2.2 12/03/2021 [facility] mmol/L 10:03 PM CDT Specimen Anatomical Collection Method Collection Time Receive d Time (Source) Location / / Volume Laterality Blood (Blood, 12/03/2021 9:42 PM 12/04/19 9:46 Arterial) CDT PM CDT Prudencio Ibrahim-C. LAB BLOOD NON ADD-ON Performing Organization Address City/State/ZIP Code Phon e Number [facility] - [address] [place], [place] [address] [place] [address] [facility] [address] (ABNORMAL) Glucose, POCT (12/03/2021 9:41 PM CDT) P athologist Signature Glucose, POCT, 165 (H) 70 - 140 12/03/2021 PCLX B mg/dL 9:56 PM CDT Specimen Anatomical Collection Method Collection Time Receive d Time (Source) Location / / Volume Laterality Blood 12/03/2021 9:41 PM 9:56 CDT PM CDT Unknown Provider LAB POCT ORDERABLES-MANUAL Performing Organization Address City/State/ZIP Code Phon e Number POC [facility] [address] [place] [address] PCLX [facility] [place] [address] [place] [facility] [address] ECG 12 Lead (12/03/2021 9:14 PM CDT) P athologist Signature Ventricular Rate 63 BPM MUSE ECG/Min [place] Interval 202 ms MUSE QRSD Interval 94 ms MUSE QT Interval 424 ms MUSE QTC Interval 433 ms MUSE P Elmore 32 degrees MUSE R El[place] -3 degrees MUSE T Wave [place] 10 degrees MUSE Specimen Anatomical Collection Method Collection Time Receive d Time (Source) Location / / Volume Laterality 12/03/2021 9:14 PM 9:20 CDT PM CDT Impressions MUSE - 12/03/2021 9:20 PM CDT Normal sinus rhythm Cannot rule out Inferior infarct ST elevation in Anterolateral leads When compared with ECG of 03-DEC-2021 20 :31, No significant change was found Reviewed by RUSH Blanco Narrative This result has an attachment that is no t available. Procedure Note Pavan Cartwright M.D. - 12/03/2021 IMPRESSION: Normal sinus rhythm Cannot rule out Inferior infarct ST elevation in Anterolateral leads When compared with ECG of 03-DEC-2021 20 :31, No significant change was found Reviewed by RUSH Blanco Prudencio Schulte P.A.-C. ECG ORDERABLES Performing Organization Address City/State/ZIP Code Phon e Number MUSE MUSE NA ECG 12 Lead (12/03/2021 8:31 PM CDT) P athologist Signature Ventricular Rate 62 BPM MUSE ECG/Min NH Interval 198 ms MUSE QRSD Interval 94 ms MUSE QT Interval 444 ms MUSE QTC Interval 450 ms MUSE P [place] 38 degrees MUSE R [place] -5 degrees MUSE T Wave [place] 14 degrees MUSE Specimen Anatomical Collection Method Collection Time Receive d Time (Source) Location / / Volume Laterality 12/03/2021 8:31 PM 2 9:02 CDT AM CDT Impressions MUSE - 12/03/2021 8:45 PM CDT Normal sinus rhythm Minimal voltage criteria for LVH, may be normal variant Cannot rule out Inferior infarct slight NH depression ST elevation in Anterolateral leads (con cave) , consider acute ischemia versus pericarditis When compared with ECG of 02-DEC-2021 09 :49, ST elevation in Anterolateral leads is n ow present Reviewed by RUSH Blanco Emergent Criteria: Communicated to ??RN 03-Dec-2021 20:[address] elevation in Anterolateral leads Revised Report Narrative This result has an attachment that is no t available. Procedure Note Pavan Cartwright M.D. - 12/04/2021 IMPRESSION: Normal sinus rhythm Minimal voltage criteria for LVH, may be normal variant Cannot rule out Inferior infarct slight NH depression ST elevation in Anterolateral leads (con cave) , consider acute ischemia versus pericarditis When compared with ECG of 02-DEC-2021 09 :49, ST elevation in Anterolateral leads is n ow present Reviewed by RUSH Blanco Emergent Criteria: Communicated to RN Nov-2021 20:[address] elevation in Anterolateral leads Revised Report Lance Hearn M.D. ECG ORDERABLES Performing Organization Address City/State/ZIP Code Phon e Number MUSE MUSE NA (ABNORMAL) Glucose, POCT (12/03/2021 8:02 PM CDT) P athologist Signature Glucose, POCT, 164 (H) 70 - 140 12/03/2021 [facility] B mg/dL 8:03 PM CDT Specimen Anatomical Collection Method Collection Time Receive d Time (Source) Location / / Volume Laterality Blood 12/03/2021 8:02 PM 2 8:03 CDT PM CDT Unknown Provider LAB POCT ORDERABLES-MANUAL Performing Organization Address City/[facility]/ZIP [facility] Phon e Number POC [facility] [address] [place] [address] [place] [address] [place] [facility] [address] [facility] (ABNORMAL) Lactate (12/03/2021 6:56 PM CDT) P athologist Signature Lactate, P 10.1 (H) 0.5 - 2.2 12/03/2021 [facility] mmol/L 7:44 PM CDT Specimen Anatomical Collection Method Collection Time Receive d Time (Source) Location / / Volume Laterality Blood (Blood, 12/03/2021 6:56 PM 12/04/19 7:30 Venous) CDT PM CDT Darcy Mcclure P.A.-C. LAB BLOOD NON ADD-ON Performing Organization Address City/[facility] Phon e Number [facility] - [address] [place], [place] [address] [facility] [place] [address] [facility] [address] [facility] (ABNORMAL) Glucose, POCT (12/03/2021 6:51 PM CDT) athologist Signature Glucose, POCT, 176 (H) 70 - 140 12/03/2021 PCLX B mg/dL 6:54 PM CDT Site ARTLINE 12/03/2021 P[facility] 6:54 PM CDT Specimen Anatomical Collection Method Collection Time Receive d Time (Source) Location / / Volume Laterality Blood 12/03/2021 6:51 PM 6:54 CDT PM CDT Unknown Provider LAB POCT ORDERABLES-MANUAL Performing Organization Address City/State/[facility] Phon e Number POC [facility] [address] [place] [address] [place] [address] [facility] [address] [facility] (ABNORMAL) Glucose, POCT (12/03/2021 5:58 PM CDT) P athologist Signature Glucose, POCT, 185 (H) 70 - 140 12/03/2021 [facility] B mg/dL 6:00 PM CDT Site ARTLINE 12/03/2021 P[facility]X 6:00 PM CDT Specimen Anatomical Collection Method Collection Time Receive d Time (Source) Location / / Volume Laterality Blood 12/03/2021 5:58 PM 2 6:00 CDT PM CDT Unknown Provider LAB POCT ORDERABLES-MANUAL Performing Organization Address City/[facility]/ZIP Code Phon e Number POC [facility] [address] [place] [address] [place] [address] [place] [facility] 200 [facility] (ABNORMAL) Glucose, POCT (12/03/2021 4:57 PM CDT) athologist Signature Glucose, POCT, 177 (H) 70 - 140 12/03/2021 [facility] B mg/dL 6:00 PM CDT Site ARTLINE 12/03/2021 P[facility]X 6:00 PM CDT Specimen Anatomical Collection Method Collection Time Receive d Time (Source) Location / / Volume Laterality Blood 12/03/2021 4:57 PM 2 6:00 CDT PM CDT Unknown Provider LAB POCT ORDERABLES-MANUAL Performing Organization Address City/[facility] Code Phon e Number POC [facility] [address] [place] [address] [place] [address] [place] [facility] 200 [facility] DX Chest Portable 1 View (12/03/2021 3:47 PM CDT) Anatomical Region Laterality Modality Chest, Thoracic RST LOS, Thoracic ARZ LOS, Thoracic N/A Digital Radiography FLA LOS Specimen (Source) Anatomical Collection Method Collection Time Re ceived Time Location / / Volume Laterality 12/03/2021 3:51 PM CDT Impressions 12/03/2021 4:03 PM CDT Since 12/02/2021, new sternotomy and CABG. Possible tiny left apical pneumothorax. ETT terminates approximately 1.5 cm above th e sloane, consider proximal retraction. Mediastinal drains. Right IJ CVC terminates at the mid SVC. Left pleural chest tube. Calcified aorta. Narrative 12/03/2021 4:03 PM CDT EXAM: ??DX CHEST PORTABLE 1 VIEW Procedure Note Hermilo Fine M.D. - 12/03/2021Forma tting of this note might be different from the original. EXAM: DX CHEST PORTABLE 1 VIEW IMPRESSION: Since 12/02/2021, new sternotomy and CAB G. Possible tiny left apical pneumothorax. ETT terminates approximately 1.5 cm above th e sloane, consider proximal retraction. Mediastinal drains. Right IJ CVC terminates at the mid SVC. Left pleural chest tube. Calcified aorta. Lance Hearn M.D. [facility] DIAGNOSTIC IMAGING PROC EDURES Patient Status (12/03/2021 3:37 PM CDT) athologist Signature FIO2 0.40 0.21=AIR 12/03/2021 3:41 [facility] PM CDT Device Vent 12/03/2021 3:41 [facility] PM CDT Specimen Anatomical Collection Method Collection Time Receive d Time (Source) Location / / Volume Laterality Blood 12/03/2021 3:37 PM 3:41 CDT PM CDT Lance Hearn M.D. LAB BLOOD NON ADD-ON Performing Organization Address City/State/ZIP Code Phon e Number [facility] - [address] [place], [place] [address] [facility] [place] [address] [facility] 200 [facility] (ABNORMAL) Blood Gas without Coox, Arterial (12/03/2021 3:37 PM CDT) athologist Signature pO2 120 (H) 83 - 108 12/03/2021 [facility] mm Hg 3:46 PM CDT pCO2 43 35 - 48 mm 12/03/2021 [facility] Hg 3:46 PM CDT pH 7.31 (L) 7.35 - 12/03/2021 ST[facility] 7.45 pH 3:46 PM CDT Base Excess -4 (L) -2 - 3 12/03/2021 [facility] mmol/L 3:46 PM CDT HCO3 21 (L) 22 - 26 12/03/2021 [facility] mmol/L 3:46 PM CDT Arterial Art Line 12/03/2021 [facility] Sample Site 3:46 PM CDT Comment: Gerald's test not done. Specimen Anatomical Collection Method Collection Time Receive d Time (Source) Location / / Volume Laterality Blood (Blood, 12/03/2021 3:37 PM 12/04/19 22 3:41 Arterial Line) CDT PM CDT Lance Hearn M.D. LAB BLOOD NON ADD-ON Performing Organization Address City/[facility]/ZIP Code Phon e Number [facility] - [address] [place], [place] [address] [place] [address] Laboratories-[address] Fibrinogen (12/03/2021 3:36 PM CDT) P athologist Signature Fibrinogen, P 218 200 - 393 12/03/2021 [facility] mg/dL 3:49 PM CDT Specimen Anatomical Collection Method Collection Time Receive d Time (Source) Location / / Volume Laterality Blood (Blood, 12/03/2021 3:36 PM 12/04/19 22 3:40 Arterial) CDT PM CDT Lance Hearn M.D. LAB BLOOD ADD-ON Performing Organization Address City/[facility] Code Phon e Number [facility] - [address] [place], [place] [address] [place] [address] (ABNORMAL) Prothrombin Time (PT) (12/03/2021 3:36 PM CDT) Patholo gist Method Time Signature Prothrombin 15.1 (H) 9.4 - 12.5 12/03/2021 [facility] Time, P sec 3:49 PM CDT INR 1.4 0.9 - 1.1 12/03/2021 [facility] 3:49 PM CDT Comment: ----ADDITIONAL INFORMATION---- Standard intensity warfarin therapeutic range: 2.0 to 3.0 ?? High intensity warfarin therapeutic rang e: 2.5 to 3.5 Specimen Anatomical Collection Method Collection Time Receive d Time (Source) Location / / Volume Laterality Blood (Blood, 12/03/2021 3:36 PM 12/04/19 22 3:40 Arterial) CDT PM CDT Lance Hearn M.D. LAB BLOOD ADD-ON Performing Organization Address City/[facility]/ZIP Code Phon e Number [facility] - [address] [place], [place] [address] [place] [address] [facility] [place] [address] [facility] APTT (Activated Partial Thromboplastin Time) (12/03/2021 3:36 PM CDT) P athologist Signature Activated 29 25 - 37 sec 12/03/2021 [facility] Partial 3:51 PM CDT Thrombopl Time, P Specimen Anatomical Collection Method Collection Time Receive d Time (Source) Location / / Volume Laterality Blood (Blood, 12/03/2021 3:36 PM 12/04/19 3:40 Arterial) CDT PM CDT Lance Hearn M.D. LAB BLOOD ADD-ON Performing Organization Address City/State/ZIP Code Phon e Number [facility] - [address] [place] [address] [address] [place] [address] (ABNORMAL) CBC without Differential (12/03/2021 3:36 PM CDT) Patholo gist Method Time Signature Hemoglobin 12.1 (L) 13.2 - 12/03/2021 [facility] 16.6 g/dL 3:45 PM CDT Hematocrit 35.3 (L) 38.3 - 12/03/2021 [facility] 48.6 % 3:45 PM CDT Erythrocytes 3.91 (L) 4.35 - 12/03/2021 [facility] 5.65 3:45 PM CDT x10(12)/L MCV 90.3 78.2 - 12/03/2021 [facility] 97.9 fL 3:45 PM CDT RBC Distrib Width 13.0 11.8 - 12/03/2021 [facility] 14.5 % 3:45 PM CDT Platelet Count 177 135 - 317 12/03/2021 [facility] x10(9)/L 3:45 PM CDT Leukocytes 19.9 (H) 3.4 - 9.6 12/03/2021 [facility] x10(9)/L 3:45 PM CDT Specimen Anatomical Collection Method Collection Time Receive d Time (Source) Location / / Volume Laterality Blood (Blood, 12/03/2021 3:36 PM 12/04/19 3:40 Arterial) CDT PM CDT Lance Hearn M.D. LAB BLOOD ADD-ON Performing Organization Address City/[facility] Phon e Number [facility] - [address] [address] [address] [place] [address] (ABNORMAL) Lactate (12/03/2021 3:36 PM CDT) athologist Signature Lactate, P 6.0 (H) 0.5 - 2.2 12/03/2021 [facility] mmol/L 3:59 PM CDT Specimen Anatomical Collection Method Collection Time Receive d Time (Source) Location / / Volume Laterality Blood (Blood, 12/03/2021 3:36 PM 12/04/19 3:40 Venous) CDT PM CDT Lance Hearn M.D. LAB BLOOD NON ADD-ON Performing Organization Address [facility] Phon e Number [facility] - [address] [place] [address] Laboratories-[address] (ABNORMAL) Basic Metabolic Panel (12/03/2021 3:36 PM CDT) athologist Signature Potassium, P 3.8 3.6 - 5.2 12/03/2021 [facility] mmol/L 4:00 PM CDT Sodium, P 142 135 - 145 12/03/2021 [facility] mmol/L 4:00 PM CDT Chloride, P 105 98 - 107 12/03/2021 [facility] mmol/L 4:00 PM CDT Bicarbonate, P 19 (L) 22 - 29 12/03/2021 [facility] mmol/L 4:00 PM CDT Anion Gap, P 18 (H) 7 - 15 12/03/2021 [facility] 4:00 PM CDT BUN (Blood Urea 20 8 - 24 12/03/2021 [facility] Nitrogen), P mg/dL 4:00 PM CDT Creatinine 1.11 0.74 - 12/03/2021 [facility] 1.35 mg/dL 4:00 PM CDT eGFR-Black/Afri 73 >=60 12/03/2021 [facility] can Martiniquais mL/min/BSA 4:00 PM CDT Comment: ----ADDITIONAL INFORMATION---- Estimated GFR calculated using the 2009 CKD_EPI creatinine equation. eGFR Non-Black/ 63 >=60 mL/min/BSA 4:00 PM CDT [facility] Comment: ----ADDITIONAL INFORMATION---- Estimated GFR calculated using the 2009 CKD_EPI creatinine equation. Calcium, Total, P 7.8 (L) 8.8 - 10.2 mg/dL 12/03/2021 4:00 PM CDT [facility] Glucose, P 176 (H) 70 - 140 mg/dL 12/03/2021 4:00 PM CDT S TMA Specimen Anatomical Collection Method Collection Time Receive d Time (Source) Location / / Volume Laterality Blood (Blood, 12/03/2021 3:36 PM 12/04/19 3:40 Arterial) CDT PM CDT Lance Hearn M.D. LAB BLOOD ADD-ON Performing Organization Address City/[facility]/ZIP Code Phon e Number [facility] - [address] [place], [place] [address] [place] [address] [facility] [address] (ABNORMAL) Glucose, POCT (12/03/2021 3:35 PM CDT) athologist Signature Glucose, POCT, 169 (H) 70 - 140 12/03/2021 PCLX B mg/dL 3:46 PM CDT Site ARTLINE 12/03/2021 PCLX 3:46 PM CDT Specimen Anatomical Collection Method Collection Time Receive d Time (Source) Location / / Volume Laterality Blood 12/03/2021 3:35 PM 2 3:46 CDT PM CDT Unknown Provider LAB POCT ORDERABLES-MANUAL Performing Organization Address City/[facility]/ZIP [facility] Phon e Number POC [facility] [address] [place] [address] [place] [address] [facility] [address] (JODI) - INTRAOPERATIVE WITH COLOR (PROBE NOT PLACED) (12/03/2021 2:50 PM CDT) athologist Signature Ejection MC CV EIMS Fraction Anatomical Region Laterality Modality Echocardiography Specimen (Source) Anatomical Collection Method Collection Time Re ceived Time Location / / Volume Laterality 12/03/2021 6:39 AM CDT Impressions 12/03/2021 3:26 PM CDT PROCEDURETransesophageal echocardiogram performed at the request of the primary stoker erector and servicer. Transesophageal echocardiogram completed without complications. PRE-BYPASS:Pre-bypass left ventricular e jection fraction 65%. No regional wall motion abnormalities. Normal right ventricular systolic function. Mild mitral valve regurgitation. Trileaflet aortic valve. Trivial aortic valve regurgitation , (c entral.) Normal ascending aorta diameter. Normal tricuspid valve. Mild tricuspid valve regurgitation. Normal pulmonary valve. No atrial level shunt by color flow imaging and agitated saline contrast injection. No atherosclerosis of the ascending aorta. Mild immobile (intimal thickening of 2-3 mm) atherosclerosis of the aortic arch. Mild immobile (intimal thickening of 2-3 mm) atherosclerosis of the descending thoracic aorta. For the complete report, see the Order-L evel Documents. Narrative 12/03/2021 3:26 PM CDT For the complete report, see the Order-Level Documents. Final Impressions 1. PRE-BYPASS: 2. Pre-bypass left ventricular ejection fraction 65%. 3. No regional wall motion abnormalities . 4. Normal right ventricular systolic fun ction. 5. SURGERY: 6. Status post coronary artery bypass gr aft(s). 7. POST-BYPASS 1: 8. Severe mitral regurgitation post bypa ss. Functional in the context of mildly reduced LV function and posterior wall hypokinesis. 9. POST-BYPASS 2: 10. Post-bypass left ventricular ejectio n fraction 65%. 11. No regional wall motion abnormalitie s. 12. Post-bypass: normal right ventricula r systolic function. 13. Mild mitral regurgitation. 14. Intact ascending aorta post-decannul ation. 15. The remaining findings are unchanged from pre-bypass images. Procedure Note Sharif Deluca M.B.B.S. - 12/03/2021Fo rmatting of this note might be different from the original. For the complete report, see the Order-L evel Documents. Final Impressions 1. PRE-BYPASS: 2. Pre-bypass left ventricular ejection fraction 65%. 3. No regional wall motion abnormalities . 4. Normal right ventricular systolic fun ction. 5. SURGERY: 6. Status post coronary artery bypass gr aft(s). 7. POST-BYPASS 1: 8. Severe mitral regurgitation post bypa ss. Functional in the context of mildly reduced LV function and posterior wall hypokinesis. 9. POST-BYPASS 2: 10. Post-bypass left ventricular ejectio n fraction 65%. 11. No regional wall motion abnormalitie s. 12. Post-bypass: normal right ventricula r systolic function. 13. Mild mitral regurgitation. 14. Intact ascending aorta post-decannul ation. 15. The remaining findings are unchanged from pre-bypass images. Findings PROCEDURETransesophageal echocardiogram performed at the request of the primary stoker erector and servicer. Transesophageal echocardiogram completed without complications. PRE-BYPASS:Pre-bypass left ventricular e jection fraction 65%. No regional wall motion abnormalities. Normal right ventricular systolic function. Mild mitral valve regurgitation. Trileaflet aortic valve. Trivial aortic valve regurgitation , (central.) Normal ascending aorta diameter. Normal tricuspid valve. Mild tricuspid valve regurgitation. Normal pulmonary valve. No atrial level shunt by color flow imaging and agitated saline contrast injection. No atherosclerosis o f the ascending aorta. Mild immobile (intimal thickening of 2-3 mm) atherosclerosis of the aortic arch. Mild immobile (intimal thickening of 2-3 mm) atherosclerosis of the descending thoracic aorta. For the complete report, see the Order-L evel Documents. Dario Wiggins M.D. CV ECHO PROCEDURES Patient Status (12/03/2021 2:33 PM CDT) athologist Signature FIO2 0.60 0.21=AIR 12/03/2021 2:33 ST[facility] PM CDT Specimen Anatomical Collection Method Collection Time Receive d Time (Source) Location / / Volume Laterality Blood 12/03/2021 2:33 PM 2:33 CDT PM CDT Karyn Weller APRN, NAIN LAB BLOOD NON ADD-ON Performing Organization Address City/State/ZIP Code Phon e Number [facility] - [address] [place], [place] [address] [place] [address] Laboratories-[facility] [address] (ABNORMAL) Lactate, B (12/03/2021 2:33 PM CDT) athologist Signature Lactate, B 4.3 (H) 0.5 - 2.2 12/03/2021 [facility] mmol/L 2:35 PM CDT Specimen Anatomical Collection Method Collection Time Receive d Time (Source) Location / / Volume Laterality Blood (Blood, 12/03/2021 2:33 PM 12/04/19 22 2:33 Venous) CDT PM CDT Ginny Moon M.D. LAB BLOOD NON ADD-ON Performing Organization Address City/State/ZIP Code Phon e Number [facility] - [address] [place], [place] [address] [place] [address] [facility] [address] [facility] (ABNORMAL) Glucose, Whole Blood (12/03/2021 2:33 PM CDT) P athologist Signature Glucose 186 (H) 70 - 140 12/03/2021 [facility] mg/dL 2:35 PM CDT Specimen Anatomical Collection Method Collection Time Receive d Time (Source) Location / / Volume Laterality Blood (Blood, 12/03/2021 2:33 PM 12/04/19 22 2:33 Arterial Line) CDT PM CDT Ginny Moon M.D. LAB BLOOD TROPONIN Performing Organization Address City/[facility]/ZIP Code Phon e Number [facility] - [address] [place], [place] [address] [place] [address] [place] [address] [facility] (ABNORMAL) Potassium, Blood (12/03/2021 2:33 PM CDT) P athologist Signature Potassium, B 3.5 (L) 3.6 - 5.2 12/03/2021 [facility] mmol/L 2:35 PM CDT Specimen Anatomical Collection Method Collection Time Receive d Time (Source) Location / / Volume Laterality Blood (Blood, 12/03/2021 2:33 PM 12/04/19 22 2:33 Arterial Line) CDT PM CDT Ginny Moon M.D. LAB BLOOD NON ADD-ON Performing Organization Address City/State/ZIP Code Phon e Number [facility] - [address] [place], [place] [address] [place] [address] [place] [address] [facility] Sodium, B (12/03/2021 2:33 PM CDT) athologist Signature Sodium, B 140 135 - 145 12/03/2021 2:35 ST[facility] mmol/L PM CDT Specimen Anatomical Collection Method Collection Time Receive d Time (Source) Location / / Volume Laterality Blood (Blood, 12/03/2021 2:33 PM 12/04/19 2:33 Arterial Line) CDT PM CDT Ginny Moon M.D. LAB BLOOD NON ADD-ON Performing Organization Address City/[facility] Phon e Number [facility] - [address] [place], [place] [address] [place] [address] (ABNORMAL) Calcium, Ionized (12/03/2021 2:33 PM CDT) athologist Signature Calcium, 4.39 (L) 4.65 - 12/03/2021 [facility] Ionized, B 5.30 mg/dL 2:35 PM CDT Specimen Anatomical Collection Method Collection Time Receive d Time (Source) Location / / Volume Laterality Blood (Blood, 12/03/2021 2:33 PM 12/04/19 2:33 Arterial Line) CDT PM CDT Ginny Moon M.D. LAB BLOOD NON ADD-ON Performing Organization Address City/[facility] Phon e Number [facility] - [address] [place], [place] [address] [place] [address] (ABNORMAL) Blood Gas with Coox, Arterial (12/03/2021 2:33 PM CDT) athologist Signature pO2 224 (H) 83 - 108 12/03/2021 ST[facility] mm Hg 2:35 PM CDT pCO2 45 35 - 48 mm 12/03/2021 [facility] Hg 2:35 PM CDT pH 7.35 7.35 - 12/03/2021 [facility] 7.45 pH 2:35 PM CDT Base Excess -1 -2 - 3 12/03/2021 [facility] mmol/L 2:35 PM CDT HCO3 25 22 - 26 12/03/2021 [facility] mmol/L 2:35 PM CDT Hemoglobin, B 10.9 (L) 13.2 - 12/03/2021 [facility] 16.6 g/dL 2:35 PM CDT O2Hb 98.5 (H) 94.0 - 12/03/2021 [facility] 98.0 % 2:35 PM CDT COHb <1.0 <3.0 % 12/03/2021 [facility] 2:35 PM CDT MetHb <1.0 <1.5 % 12/03/2021 [facility] 2:35 PM CDT CtO2 15.7 (L) 18.0 - 12/03/2021 [facility] 21.0 vol % 2:35 PM CDT Specimen Anatomical Collection Method Collection Time Receive d Time (Source) Location / / Volume Laterality Blood (Blood, 12/03/2021 2:33 PM 12/04/19 2:33 Arterial Line) CDT PM CDT Ginny Moon M.D. LAB BLOOD NON ADD-ON Performing Organization Address City/[facility] Phon e Number [facility] - [address] Transfuse autologous RBC (Cell Salvage) : (12/03/2021 2:32 PM CDT) Ginny Moon M.D. BLOOD TRANSFUSION ORDERABLES Transfuse autologous RBC (Cell Salvage) : (12/03/2021 2:07 PM CDT) Ginny Moon M.D. BLOOD TRANSFUSION ORDERABLES Patient Status (12/03/2021 1:52 PM CDT) P athologist Signature FIO2 1.00 0.21=AIR 12/03/2021 1:52 [facility] PM CDT Specimen Anatomical Collection Method Collection Time Receive d Time (Source) Location / / Volume Laterality Blood 12/03/2021 1:52 PM 1:52 CDT PM CDT Karyn Weller APRN, CRNA LAB BLOOD NON ADD-ON Performing Organization Address City/[facility] Phon e Number [facility] - [address] [place] [address] [facility] [address] [facility] Platelet Count (12/03/2021 1:52 PM CDT) P athologist Signature Platelet Count 167 135 - 317 12/03/2021 [facility] x10(9)/L 1:57 PM CDT Specimen Anatomical Collection Method Collection Time Receive d Time (Source) Location / / Volume Laterality Blood (Blood, 12/03/2021 1:52 PM 12/04/19 1:52 Arterial Line) CDT PM CDT Ginny Moon M.D. LAB BLOOD ADD-ON Performing Organization Address City/[facility] Code Phon e Number [facility] - [address] [address] [facility]-[address] (ABNORMAL) Prothrombin Time (PT) (12/03/2021 1:52 PM CDT) [facility] Method Time Signature Prothrombin 18.8 (H) 9.4 - 12.5 12/03/2021 [facility] Time, P sec 2:08 PM CDT INR 1.7 0.9 - 1.1 12/03/2021 [facility] 2:08 PM CDT Comment: ----ADDITIONAL INFORMATION---- Standard intensity warfarin therapeutic range: 2.0 to 3.0 ?? High intensity warfarin therapeutic rang e: 2.5 to 3.5 Specimen Anatomical Collection Method Collection Time Receive d Time (Source) Location / / Volume Laterality Blood (Blood, 12/03/2021 1:52 PM 12/04/19 1:52 Arterial Line) CDT PM CDT Ginny Moon M.D. LAB BLOOD ADD-ON Performing Organization Address City/State/ZIP Code Phon e Number [facility] - [address] [place], [place] [address] [address] [place] [address] [facility] 200 [facility] Fibrinogen (12/03/2021 1:52 PM CDT) P athologist Signature Fibrinogen, P 231 200 - 393 12/03/2021 [facility] mg/dL 2:08 PM CDT Specimen Anatomical Collection Method Collection Time Receive d Time (Source) Location / / Volume Laterality Blood (Blood, 12/03/2021 1:52 PM 12/04/19 1:52 Arterial Line) CDT PM CDT Ginny Moon M.D. LAB BLOOD ADD-ON Performing Organization Address City/State/ZIP Code Phon e Number [facility] - [address] [place], [place] [address] [place] [address] [facility] [address] APTT (Activated Partial Thromboplastin Time) (12/03/2021 1:52 PM CDT) P athologist Signature Activated 35 25 - 37 sec 12/03/2021 [facility] Partial 2:10 PM CDT Thrombopl Time, P Specimen Anatomical Collection Method Collection Time Receive d Time (Source) Location / / Volume Laterality Blood (Blood, 12/03/2021 1:52 PM 12/04/19 1:52 Arterial Line) CDT PM CDT Ginny Moon M.D. LAB BLOOD ADD-ON Performing Organization Address City/State/ZIP Code Phon e Number [facility] - [address] [place], [place] [address] [place] [address] [facility] [address] (ABNORMAL) Glucose, Whole Blood (12/03/2021 1:52 PM CDT) P athologist Signature Glucose 205 (H) 70 - 140 12/03/2021 [facility] mg/dL 1:55 PM CDT Specimen Anatomical Collection Method Collection Time Receive d Time (Source) Location / / Volume Laterality Blood (Blood, 12/03/2021 1:52 PM 12/04/19 1:52 Arterial Line) CDT PM CDT Ginny Moon M.D. LAB BLOOD TROPONIN Performing Organization Address City/State/ZIP Code Phon e Number [facility] - [address] [place], [place] [address] [place] [address] [facility] [address] Potassium, Blood (12/03/2021 1:52 PM CDT) P athologist Signature Potassium, B 3.7 3.6 - 5.2 12/03/2021 [facility] mmol/L 1:55 PM CDT Specimen Anatomical Collection Method Collection Time Receive d Time (Source) Location / / Volume Laterality Blood (Blood, 12/03/2021 1:52 PM 12/04/19 1:52 Arterial Line) CDT PM CDT Ginny Moon M.D. LAB BLOOD NON ADD-ON Performing Organization Address City/[facility]/ZIP Code Phon e Number [facility] - [address] [place], [place] [address] [address] [place] [address] [facility] [address] [facility] Sodium, B (12/03/2021 1:52 PM CDT) athologist Signature Sodium, B 138 135 - 145 12/03/2021 1:55 [facility] mmol/L PM CDT Specimen Anatomical Collection Method Collection Time Receive d Time (Source) Location / / Volume Laterality Blood (Blood, 12/03/2021 1:52 PM 12/04/19 1:52 Arterial Line) CDT PM CDT Ginny Moon M.D. LAB BLOOD NON ADD-ON Performing Organization Address City/State/ZIP Code Phon e Number [facility] - [address] [place], [place] [address] [place] [address] [facility] [address] Calcium, Ionized (12/03/2021 1:52 PM CDT) P athologist Signature Calcium, 4.95 4.65 - 5.30 12/03/2021 [facility] Ionized, B mg/dL 1:55 PM CDT Specimen Anatomical Collection Method Collection Time Receive d Time (Source) Location / / Volume Laterality Blood (Blood, 12/03/2021 1:52 PM 12/04/19 1:52 Arterial Line) CDT PM CDT Ginny Moon M.D. LAB BLOOD NON ADD-ON Performing Organization Address City/State/ZIP Code Phon e Number [facility] - [address] [place], [place] [address] [place] [address] [facility] [address] (ABNORMAL) Blood Gas with Coox, Arterial (12/03/2021 1:52 PM CDT) athologist Signature pO2 290 (H) 83 - 108 12/03/2021 [facility] mm Hg 1:55 PM CDT pCO2 43 35 - 48 mm 12/03/2021 [facility] Hg 1:55 PM CDT pH 7.32 (L) 7.35 - 12/03/2021 [facility] 7.45 pH 1:55 PM CDT Base Excess -5 (L) -2 - 3 12/03/2021 [facility] mmol/L 1:55 PM CDT HCO3 22 22 - 26 12/03/2021 [facility] mmol/L 1:55 PM CDT Hemoglobin, B 10.9 (L) 13.2 - 12/03/2021 [facility] 16.6 g/dL 1:55 PM CDT O2Hb 98.5 (H) 94.0 - 12/03/2021 [facility] 98.0 % 1:55 PM CDT COHb <1.0 <3.0 % 12/03/2021 [facility] 1:55 PM CDT MetHb <1.0 <1.5 % 12/03/2021 [facility] 1:55 PM CDT CtO2 15.8 (L) 18.0 - 12/03/2021 [facility] 21.0 vol % 1:55 PM CDT Specimen Anatomical Collection Method Collection Time Receive d Time (Source) Location / / Volume Laterality Blood (Blood, 12/03/2021 1:52 PM 12/04/19 1:52 Arterial Line) CDT PM CDT Ginny Moon M.D. LAB BLOOD NON ADD-ON Performing Organization Address City/State/ZIP Code Phon e Number [facility] - [address] [place], [place] [address] [facility] [place] [address] Laboratories-[facility] [address] (ABNORMAL) Lactate, B (12/03/2021 1:52 PM CDT) athologist Signature Lactate, B 3.8 (H) 0.5 - 2.2 12/03/2021 [facility] mmol/L 1:55 PM CDT Specimen Anatomical Collection Method Collection Time Receive d Time (Source) Location / / Volume Laterality Blood (Blood, 12/03/2021 1:52 PM 12/04/19 22 1:52 Venous) CDT PM CDT Ginny Moon M.D. LAB BLOOD NON ADD-ON Performing Organization Address City/State/ZIP Code Phon e Number [facility] - [address] [place], [place] [address] [facility] [place] [address] [facility] [address] ACT (Activated Clotting Time), POCT (12/03/2021 1:50 PM CDT) P athologist Signature Activated 116 82 - 152 12/03/2021 PCLX Clotting Time sec 1:54 PM CDT Specimen Anatomical Collection Method Collection Time Receive d Time (Source) Location / / Volume Laterality 12/03/2021 1:50 PM 2 1:54 CDT PM CDT Unknown Provider LAB POCT ORDERABLES - DEVICE Performing Organization Address City/[facility] Phon e Number [facility] [address] [place] [address] [place] [address] [place] [facility] [address] (ABNORMAL) ACT (Activated Clotting Time), POCT (12/03/2021 1:11 PM CDT) P athologist Signature Activated 722 (H) 82 - 152 12/03/2021 [facility] Clotting Time sec 1:22 PM CDT Specimen Anatomical Collection Method Collection Time Receive d Time (Source) Location / / Volume Laterality 12/03/2021 1:11 PM 2 1:23 CDT PM CDT Unknown Provider LAB POCT ORDERABLES - DEVICE Performing Organization Address City/[facility] Phon e Number POC [facility] [address] [place] [address] [place], [place] [id number] [place] [address] (ABNORMAL) ACT (Activated Clotting Time), POCT (12/03/2021 12:50 PM CDT) P athologist Signature Activated 733 (H) 82 - 152 12/03/2021 [facility] Clotting Time sec 1:00 PM CDT Specimen Anatomical Collection Method Collection Time Receive d Time (Source) Location / / Volume Laterality 12/03/2021 12:50 12/03/2021 1:00 PM CDT PM CDT Unknown Provider LAB POCT ORDERABLES - DEVICE Performing Organization Address City/[facility]/ZIP [facility] Phon e Number POC [facility] [address] [place] [address] [place] [address] [place] [facility] [address] (ABNORMAL) Glucose, POCT (12/03/2021 12:49 PM CDT) athologist Signature Glucose, POCT, 177 (H) 70 - 140 12/03/2021 PCSM B mg/dL 12:51 PM CDT Site ARTLINE 12/03/2021 PCSM 12:51 PM CDT Specimen Anatomical Collection Method Collection Time Receive d Time (Source) Location / / Volume Laterality Blood 12/03/2021 12:49 12/03/2021 PM CDT 12:51 PM CDT Unknown Provider LAB POCT ORDERABLES-MANUAL Performing Organization Address City/State/ZIP Code Phon e Number POC [facility] [address] [place], [place] [address] [place] [address] [place] [facility] [address] (ABNORMAL) ACT (Activated Clotting Time), POCT (12/03/2021 12:21 PM CDT) athologist Signature Activated 610 (H) 82 - 152 12/03/2021 P[facility] Clotting Time sec 12:29 PM CDT Specimen Anatomical Collection Method Collection Time Receive d Time (Source) Location / / Volume Laterality 12/03/2021 12:21 12/03/2021 PM CDT 12:30 PM CDT Unknown Provider LAB POCT ORDERABLES - DEVICE Performing Organization Address City/[facility]/ZIP [facility] Phon e Number POC [facility] [address] [place] [address] [place] [address] [place] [facility] [address] (ABNORMAL) ACT (Activated Clotting Time), POCT (12/03/2021 11:53 AM CDT) athologist Signature Activated 663 (H) 82 - 152 12/03/2021 [facility] Clotting Time sec 12:03 PM CDT Specimen Anatomical Collection Method Collection Time Receive d Time (Source) Location / / Volume Laterality 12/03/2021 11:53 12/03/2021 AM CDT 12:03 PM CDT Unknown Provider LAB POCT ORDERABLES - DEVICE Performing Organization Address City/[facility]/ZIP [facility] Phon e Number [facility] [address] [place] [address] [place] [address] [place] [facility] [address] [facility] (ABNORMAL) ACT (Activated Clotting Time), POCT (12/03/2021 11:22 AM CDT) athologist Signature Activated 791 (H) 82 - 152 12/03/2021 [facility] Clotting Time sec 11:34 AM CDT Specimen Anatomical Collection Method Collection Time Receive d Time (Source) Location / / Volume Laterality 12/03/2021 11:22 12/03/2021 AM CDT 11:34 AM CDT Unknown Provider LAB POCT ORDERABLES - DEVICE Performing Organization Address City/[facility] Phon e Number [facility] [address] [place] [address] [place] [address] [place] [facility] [address] Glucose, Whole Blood (12/03/2021 11:21 AM CDT) athologist Signature Glucose 116 70 - 140 12/03/2021 [facility] mg/dL 11:23 AM CDT Specimen Anatomical Collection Method Collection Time Receive d Time (Source) Location / / Volume Laterality Blood (Blood, 12/03/2021 11:21 12/03/2021 Arterial Line) AM CDT 11:21 AM CDT Dario Wiggins M.D. LAB BLOOD TROPONIN Performing Organization Address City/[facility]/ZIP [facility] Phon e Number [facility] - [address] [place], [place] [address] [facility] [place] [address] [facility] [address] Potassium, Blood (12/03/2021 11:21 AM CDT) athologist Signature Potassium, B 4.6 3.6 - 5.2 12/03/2021 [facility] mmol/L 11:23 AM CDT Specimen Anatomical Collection Method Collection Time Receive d Time (Source) Location / / Volume Laterality Blood (Blood, 12/03/2021 11:21 12/03/2021 Arterial Line) AM CDT 11:21 AM CDT Dario Wiggins M.D. LAB BLOOD NON ADD-ON Performing Organization Address City/[facility]/ZIP [facility] Phon e Number [facility] - [address] [place], [place] [address] [employer], [place] [id number] [place] [address] [address] [facility] Sodium, B (12/03/2021 11:21 AM CDT) athologist Signature Sodium, B 137 135 - 145 12/03/2021 [facility] mmol/L 11:23 AM CDT Specimen Anatomical Collection Method Collection Time Receive d Time (Source) Location / / Volume Laterality Blood (Blood, 12/03/2021 11:21 12/03/2021 Arterial Line) AM CDT 11:21 AM CDT Dario Wiggins M.D. LAB BLOOD NON ADD-ON Performing Organization Address City/State/ZIP Code Phon e Number [facility] - [address] [place], [place] [address] [place] [address] [facility] [address] [facility] Calcium, Ionized (12/03/2021 11:21 AM CDT) athologist Signature Calcium, 4.66 4.65 - 5.30 12/03/2021 [facility] Ionized, B mg/dL 11:23 AM CDT Specimen Anatomical Collection Method Collection Time Receive d Time (Source) Location / / Volume Laterality Blood (Blood, 12/03/2021 11:21 12/03/2021 Arterial Line) AM CDT 11:21 AM CDT Dario Wiggins M.D. LAB BLOOD NON ADD-ON Performing Organization Address City/State/[facility] Code Phon e Number [facility] - [address] [place], [place] [address] [employer], [place] [id number] [place] [address] (ABNORMAL) Blood Gas with Coox, Arterial (12/03/2021 11:21 AM CDT) P athologist Signature pO2 278 (H) 83 - 108 12/03/2021 [facility] mm Hg 11:23 AM CDT pCO2 50 (H) 35 - 48 mm 12/03/2021 [facility] Hg 11:23 AM CDT pH 7.30 (L) 7.35 - 12/03/2021 [facility] 7.45 pH 11:23 AM CDT Base Excess -2 -2 - 3 12/03/2021 [facility] mmol/L 11:23 AM CDT HCO3 25 22 - 26 12/03/2021 [facility] mmol/L 11:23 AM CDT Hemoglobin, B 11.4 (L) 13.2 - 12/03/2021 [facility] 16.6 g/dL 11:23 AM CDT O2Hb 98.0 94.0 - 12/03/2021 [facility] 98.0 % 11:23 AM CDT COHb <1.0 <3.0 % 12/03/2021 [facility] 11:23 AM CDT MetHb 1.2 <1.5 % 12/03/2021 [facility] 11:23 AM CDT CtO2 16.4 (L) 18.0 - 12/03/2021 [facility] 21.0 vol % 11:23 AM CDT Specimen Anatomical Collection Method Collection Time Receive d Time (Source) Location / / Volume Laterality Blood (Blood, 12/03/2021 11:21 12/03/2021 Arterial Line) AM CDT 11:21 AM CDT Dario Wiggins M.D. LAB BLOOD NON ADD-ON Performing Organization Address City/State/ZIP Code Phon e Number [facility] - [address] [place], [place] [address] [place] [address] [facility] [address] (ABNORMAL) ACT (Activated Clotting Time), POCT (12/03/2021 10:49 AM CDT) P athologist Signature Activated 756 (H) 82 - 152 12/03/2021 PCLX Clotting Time sec 11:00 AM CDT Specimen Anatomical Collection Method Collection Time Receive d Time (Source) Location / / Volume Laterality 12/03/2021 10:49 12/03/2021 AM CDT 11:01 AM CDT Unknown Provider LAB POCT ORDERABLES - DEVICE Performing Organization Address City/[facility]/ZIP [facility] Phon e Number POC [facility] [address] [place] [address] [place] [address] [place] [facility] 200 [facility] (ABNORMAL) Hemoglobin (HGB), POCT (12/03/2021 10:48 AM CDT) athologist Signature Hemoglobin, 13.0 (L) 13.2 - 12/03/2021 PCSM POCT, B 16.6 g/dL 10:54 AM CDT Specimen Anatomical Collection Method Collection Time Receive d Time (Source) Location / / Volume Laterality Blood 12/03/2021 10:48 12/03/2021 AM CDT 10:54 AM CDT Unknown Provider LAB POCT ORDERABLES - DEVICE Performing Organization Address City/[facility] Phon e Number POC [facility] [address] [place], [place] [address] [place] [address] [facility] [address] [place] [address] Patient Status (12/03/2021 9:22 AM CDT) athologist Signature FIO2 0.60 0.21=AIR 12/03/2021 9:22 [facility] AM CDT Specimen Anatomical Collection Method Collection Time Receive d Time (Source) Location / / Volume Laterality Blood 12/03/2021 9:22 AM 9:22 CDT AM CDT Karyn Weller APRN, CRNA LAB BLOOD NON ADD-ON Performing Organization Address City/[facility]/ZIP [facility] Phon e Number [facility] - [address] [place], [place] [address] [facility] [place] [address] [facility] [place] [address] [facility] Lactate, B (12/03/2021 9:22 AM CDT) athologist Signature Lactate, B 0.6 0.5 - 2.2 12/03/2021 [facility] mmol/L 9:23 AM CDT Specimen Anatomical Collection Method Collection Time Receive d Time (Source) Location / / Volume Laterality Blood (Blood, 12/03/2021 9:22 AM 12/04/19 9:22 Venous) CDT AM CDT Ginny Moon M.D. LAB BLOOD NON ADD-ON Performing Organization Address City/[facility]/ZIP [facility] Phon e Number [facility] - [address] Glucose, Whole Blood (12/03/2021 9:22 AM CDT) athologist Signature Glucose 93 70 - 140 12/03/2021 9:23 [facility] mg/dL AM CDT Specimen Anatomical Collection Method Collection Time Receive d Time (Source) Location / / Volume Laterality Blood (Blood, 12/03/2021 9:22 AM 12/04/19 9:22 Arterial Line) CDT AM CDT Ginny Moon M.D. LAB BLOOD TROPONIN Performing Organization Address City/[facility]/ZIP [facility] Phon e Number [facility] - [address] [place] [address] [place] [address] Potassium, Blood (12/03/2021 9:22 AM CDT) athologist Signature Potassium, B 3.9 3.6 - 5.2 12/03/2021 [facility] mmol/L 9:23 AM CDT Specimen Anatomical Collection Method Collection Time Receive d Time (Source) Location / / Volume Laterality Blood (Blood, 12/03/2021 9:22 AM 12/04/19 9:22 Arterial Line) CDT AM CDT Ginny Moon M.D. LAB BLOOD NON ADD-ON Performing Organization Address City/State/ZIP Code Phon e Number [facility] - [address] [place] [address] Sodium, B (12/03/2021 9:22 AM CDT) athologist Signature Sodium, B 138 135 - 145 12/03/2021 9:23 [facility] mmol/L AM CDT Specimen Anatomical Collection Method Collection Time Receive d Time (Source) Location / / Volume Laterality Blood (Blood, 12/03/2021 9:22 AM 12/04/19 9:22 Arterial Line) CDT AM CDT Ginny Moon M.D. LAB BLOOD NON ADD-ON Performing Organization Address City/[facility] Phon e Number [facility] - [address] [place] [address] [place] [address] (ABNORMAL) Calcium, Ionized (12/03/2021 9:22 AM CDT) athologist Signature Calcium, 4.18 (L) 4.65 - 12/03/2021 [facility] Ionized, B 5.30 mg/dL 9:23 AM CDT Specimen Anatomical Collection Method Collection Time Receive d Time (Source) Location / / Volume Laterality Blood (Blood, 12/03/2021 9:22 AM 12/04/19 9:22 Arterial Line) CDT AM CDT Ginny Moon M.D. LAB BLOOD NON ADD-ON Performing Organization Address [facility] Phon e Number [facility] - [id number] [place] [address] (ABNORMAL) Blood Gas with Coox, Arterial (12/03/2021 9:22 AM CDT) athologist Signature pO2 205 (H) 83 - 108 12/03/2021 [facility] mm Hg 9:23 AM CDT pCO2 42 35 - 48 mm 12/03/2021 [facility] Hg 9:23 AM CDT pH 7.35 7.35 - 12/03/2021 [facility] 7.45 pH 9:23 AM CDT Base Excess -2 -2 - 3 12/03/2021 [facility] mmol/L 9:23 AM CDT HCO3 23 22 - 26 12/03/2021 [facility] mmol/L 9:23 AM CDT Hemoglobin, B 11.8 (L) 13.2 - 12/03/2021 [facility] 16.6 g/dL 9:23 AM CDT O2Hb 98.6 (H) 94.0 - 12/03/2021 [facility] 98.0 % 9:23 AM CDT COHb <1.0 <3.0 % 12/03/2021 [facility] 9:23 AM CDT MetHb <1.0 <1.5 % 12/03/2021 [facility] 9:23 AM CDT CtO2 16.9 (L) 18.0 - 12/03/2021 [facility] 21.0 vol % 9:23 AM CDT Specimen Anatomical Collection Method Collection Time Receive d Time (Source) Location / / Volume Laterality Blood (Blood, 12/03/2021 9:22 AM 12/04/19 9:22 Arterial Line) CDT AM CDT Ginny Moon M.D. LAB BLOOD NON ADD-ON Performing Organization Address City/State/ZIP Code Phon e Number [facility] - [address] [place], [place] [address] [place] [address] [facility] [address] [facility] ACT (Activated Clotting Time), POCT (12/03/2021 9:02 AM CDT) athologist Signature Activated 128 82 - 152 12/03/2021 PCLX Clotting Time sec 9:05 AM CDT Specimen Anatomical Collection Method Collection Time Receive d Time (Source) Location / / Volume Laterality 12/03/2021 9:02 AM 9:05 CDT AM CDT Unknown Provider LAB POCT ORDERABLES - DEVICE Performing Organization Address City/[facility]/ZIP Code Phon e Number POC [facility] [address] [place] [address] PCL[facility] [place] [address] [facility] [address] [facility] documented in this encounter Visit Diagnoses Diagnosis 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 Artery Disease With Stable [place] na (HCC) Preoperative Examination 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 Debility Abnormal Gait Non Orthopedic 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 Artery Disease With Stable [place] na (HCC) Preoperative Examination Cardiovascular 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 (HCC) Postprocedural Pneumothorax Hypertension NOS Retention Urinary documented in this encounter Admitting Diagnoses Diagnosis Coronary Artery Disease With Stable [place]ira na (HCC) Preoperative Examination Cardiovascular 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) documented in this encounter Administered Medications Inactive Administered Medications - up to 3 most recent administrations Medication Order MAR Action Action Date Dose Rate Site acetaminophen tablet 1,000 mg Given 12/03/2021 7:51 AM CDT 1,000 mg (TYLENOL) 1,000 mg, oral, Once, On Thu12/03/21 at 0715, For 1 dose, Pre-Op, Preprocedure in PWA acetaminophen tablet 1,000 mg (TYLENOL) Given 12/05/2021 3:28 PM CDT 1,000 mg 1,000 mg, oral, Every 6 hours scheduled, First dose (after last modification) on Thu12/05/21 at 0000 Given 12/05/2021 5:46 AM CDT 1,000 mg Given 12/04/2021 11:45 PM CDT 1,000 mg acetaminophen tablet 1,000 mg (TYLENOL) Given 12/06/2021 4:52 AM CDT 1,000 mg 1,000 mg, oral, Every 6 hours PRN, mild pain or score 1-3 of 10, Starting on Thu12/05/21 at 1800 Given 12/05/2021 8:44 PM CDT 1,000 mg acetaminophen tablet 1,000 mg (TYLENOL) Given 12/08/2021 6:01 AM CDT 1,000 mg 1,000 mg, oral, Every 6 hours, First dose (after last modification) on Thu12/06/21 at 1200 Given 12/08/2021 12:08 AM CDT 1,000 mg Given 12/07/2021 5:06 PM CDT 1,000 mg acetaminophen tablet 650 mg (TYLENOL) Given 12/04/2021 6:10 PM CDT 650 mg 650 mg, oral, Every 6 hours scheduled, First dose (after last modification) on Thu12/03/21 at 2200 Given 12/04/2021 1:23 PM CDT 650 mg Given 12/04/2021 5:51 AM CDT 650 mg albumin human 5 % injection 12.5 g New Bag 12/03/2021 6:32 PM CDT 12.5 g 12.5 g, intravenous, Once, On Thu12/03/21 at 1745, For 1 dose, If no infusion rate specified: Administer the 5% solution at 999 mL/hr or less if ICU/shock, otherwise infuse at 250 mL/hr. albumin human 5 % injection 250 mL New Bag 12/03/2021 11:37 PM CDT 250 mL 500 mL/hr 250 mL, intravenous, at 500 mL/hr, Administer over 30 Minutes, Once, On Thu12/03/21 at 2330, For 1 dose albuterol nebulizer solution 2.5 mg 2.5 mg, nebulization, Every 6 hours PRN, wheezing, shortness of breath, Starting on Thu12/03/21 at 1524, Albuterol nebs were interchanged for albuterol/levalbuterol MDI (same frequency) amiodarone 1.8 mg/mL in Rate/Dose Verify 12/03/2021 11:00 1 mg/min 33.3 mL/hr dextrose 200 mL infusion PM CDT (NEXTERONE/CORDARONE) 1 mg/min (33.3333 mL/hr, rounded to 33.3 mL/hr), intravenous, Continuous, Starting on Thu12/03/21 at 1315, For 11 hours, 360 mg in 200 mL; For non-emergency doses, use an in-line filter. Rate/Dose Verify 12/03/2021 10:00 PM CDT 1 mg/min 33.3 mL/hr Rate/Dose Verify 12/03/2021 9:00 PM CDT 1 mg/min 33.3 mL/hr amiodarone 1.8 mg/mL in dextrose Rate/Dose 12/04/2021 9:00 0.5 m g/min 16.7 mL/hr 200 mL infusion Verify AM CDT (NEXTERONE/CORDARONE) 0.5 mg/min (16.6667 mL/hr, rounded to 16.7 mL/hr), intravenous, Continuous, Starting on Thu12/04/21 at 0015, For 18 hours, 360 mg in 200 mL; For non-emergency doses, use an in-line filter. Rate/Dose Verify 12/04/2021 8:00 AM CDT 0.5 mg/min 16.7 mL/hr Rate/Dose Verify 12/04/2021 7:00 AM CDT 0.5 mg/min 16.7 mL/hr amiodarone tablet 200 mg (PACERONE) Given 12/07/2021 8:44 AM CDT 200 mg 200 mg, oral, 2 times daily, First dose on Thu12/04/21 at 2100 Given 12/06/2021 8:58 PM CDT 200 mg Given 12/06/2021 8:36 AM CDT 200 mg amiodarone tablet 200 mg (PACERONE) Given 12/08/2021 9:16 AM CDT 200 mg 200 mg, oral, 2 times daily, First dose on Thu12/07/21 at 2100, For 4 days Given 12/07/2021 8:43 PM CDT 200 mg amiodarone tablet 200 mg (PACERONE) 200 mg, oral, Daily, First dose on Thu12/11/21 at 0900 , For 30 days amLODIPine tablet 10 mg (NORVASC) Given 12/05/2021 9:24 AM CDT 10 mg 10 mg, oral, Daily, First dose (after last modification) on Thu12/05/21 at 0900 amLODIPine tablet 10 mg (NORVASC) Given 12/08/2021 9:16 AM CDT 10 mg 10 mg, oral, Daily, First dose (after last modification) on Thu12/07/21 at 0900 Given 12/07/2021 8:44 AM CDT 10 mg amLODIPine tablet 5 mg (NORVASC) Given 12/04/2021 2:55 PM CDT 5 mg 5 mg, oral, Daily, First dose on Thu12/04/21 at 1400 amLODIPine tablet 5 mg (NORVASC) Given 12/06/2021 5:18 AM CDT 5 mg 5 mg, oral, Daily, First dose (after last modification) on Thu12/06/21 at 0515 amLODIPine tablet 5 mg (NORVASC) Given 12/06/2021 8:37 AM CDT 5 mg 5 mg, oral, Once, On Thu12/06/21 at 0800, For 1 dose aspirin chewable tablet 81 mg Given 12/08/2021 9:16 AM CDT 81 mg 81 mg, oral, Daily, First dose on Thu12/04/21 at 0900 Given 12/07/2021 8:44 AM CDT 81 mg Given 12/06/2021 8:36 AM CDT 81 mg aspirin chewable tablet 81 mg Given 12/03/2021 10:57 PM CDT 81 mg 81 mg, oral, Once, On Thu12/03/21 at 2300, For 1 dose atorvastatin tablet 40 mg (LIPITOR) Given 12/07/2021 8:43 PM CDT 40 mg 40 mg, oral, Daily at bedtime, First dose on Thu12/04/21 at 2100 Given 12/06/2021 8:58 PM CDT 40 mg Given 12/05/2021 8:45 PM CDT 40 mg benzocaine-menthoL 15-3.6 mg per lozenge 1 lozenge (CEPACOL) 1 lozenge, oral, As needed, sore throat, Starting on T u12/03/[address] tablet 10 mg (DULCOLAX) Given 12/06/2021 8:36 AM CDT 10 mg 10 mg, oral, 2 times daily, First dose on Thu12/05/21 at 2100, Swallow whole. Do NOT crush, chew, or split tablet. Given 12/05/2021 8:45 PM CDT [address] tablet 10 mg (DULCOLAX) 10 mg, oral, 2 times daily PRN, constipation, Starting on Thu12/07/21 at 1045, Swallow whole. Do NOT crush, chew, or split tablet. bisacodyL suppository 10 mg (DULCOLAX) 10 mg, rectal, Daily PRN, constipation, Starting on Thu12/03/21 at 1524, If no bowel movement for 72 hours calcium gluc in NaCl, iso-osm IVPB 2 g New Bag 12/04/2021 6:30 AM CDT 2 g 400 mL/hr 2 g, intravenous, at 400 mL/hr, Administer over 15 Minutes, Once, On Thu12/04/21 at 0530, For 1 dose calcium gluconate 3 g in NaCl 0.9% New Bag 12/03/2021 8:42 PM CDT 3 g 260 mL/hr IVPB 3 g, intravenous, at 260 mL/hr, Administer over 30 Minutes, Once, On Thu12/03/21 at 2015, For 1 dose ceFAZolin in dextrose (iso-os) IVPB 2 New Bag 12/04/2021 9:00 PM CDT 2 g 200 mL/hr g (ANCEF) 2 g, intravenous, at 200 mL/hr, Administer over 30 Minutes, Every 8 hours, First dose on Thu12/03/21 at 2100, For 4 doses, Start within 8 hours of last IV dose., Drug Monitoring Program: Pharmacist to adjust medication dosing based on indication and drug clearance factors., Indications: Prophylaxis, surgical New Bag 12/04/2021 1:23 PM CDT 2 g 200 mL/hr New Bag 12/04/2021 4:35 AM CDT 2 g 200 mL/hr clopidogreL tablet 75 mg (PLAVIX) Given 12/08/2021 9:17 AM CDT 75 mg 75 mg, oral, Daily, First dose on Thu12/04/21 at 0900 Given 12/07/2021 8:44 AM CDT 75 mg Given 12/06/2021 8:36 AM CDT 75 mg colchicine tablet 0.3 mg (COLCRYS) Given 12/08/2021 9:15 AM CDT 0.3 mg 0.3 mg, oral, Daily, First dose on Thu12/05/21 at 0900 Given 12/07/2021 8:44 AM CDT 0.3 mg Given 12/06/2021 8:35 AM CDT 0.3 mg dexAMETHasone injection 4 mg (DECADRON) Given 12/04/2021 9:16 AM CDT 4 mg 4 mg, intravenous, Every 6 hours PRN, nausea unrelieved by zofran, Starting on Thu12/04/21 at 0842 dextrose 50 % injection 12.5 g Given 12/04/2021 6:24 AM CDT 12.5 g 12.5 g, intravenous, Once, On Thu12/04/21 at 0600, For 1 dose EPINEPHrine 16 mcg/mL in Rate/Dose 12/03/2021 3:20 0.04 mcg/kg/min 1 3.83 mL/hr NaCl 0.9% mL 250 mL Verify PM CDT infusion (ADRENALIN) 0-0.3 mcg/kg/min ? 92.2 kg Dosing weight (0-103.725 mL/hr, rounded to 0-103.73 mL/hr), intravenous, Continuous, Starting on Thu12/03/21 at 1115, In OR Protect from light and avoid extravasation, Patient Type: Cardiovascular Surgery, Initiate at: Other, Rate: Per Provider, Titrate at: Other, Titrate: Per Provider, Goal: Other, Goal: Per Provider Rate/Dose Change 12/03/2021 2:00 PM CDT 0.04 mcg/kg/min 13.83 mL/hr Rate/Dose Change 12/03/2021 1:41 PM CDT 0.02 mcg/kg/min 6.915 mL/hr EPINEPHrine 16 mcg/mL in Rate/Dose Verify 12/04/2021 1:00 0.01 mcg/ kg/min 3.46 mL/hr NaCl 0.9% mL 250 mL AM CDT infusion (ADRENALIN) 0.02 mcg/kg/min ? 92.2 kg Dosing weight (6.915 mL/hr, rounded to 6.92 mL/hr), intravenous, Continuous, Starting on Thu12/03/21 at 1545, Protect from light and avoid extravasation, Patient Type: Do Not Titrate Rate/Dose Verify 12/04/2021 12:00 AM CDT 0.01 mcg/kg/min 3.46 mL/hr Rate/Dose Change 12/03/2021 11:47 PM CDT 0.01 mcg/kg/min 3.46 mL/hr ezetimibe tablet 10 mg (ZETIA) Given 12/07/2021 5:06 PM CDT 10 mg 10 mg, oral, Every evening, First dose on Thu12/04/21 at 1800 Given 12/06/2021 5:01 PM CDT 10 mg Given 12/05/2021 6:28 PM CDT 10 mg furosemide injection 20 mg (LASIX) Given 12/04/2021 5:51 AM CDT 20 mg 20 mg, intravenous, 2 times daily, First dose on Thu12/04/21 at 0530 furosemide injection 20 mg (LASIX) Given 12/04/2021 6:31 AM CDT 20 mg 20 mg, intravenous, Once, On Thu12/04/21 at 0600, For 1 dose, Adults: Doses less than 120 mg: IV push over 20 mg/minute. Doses 120 mg or greater: IVPB at 4 mg/minute. Peds/Neonates: Doses less than 120 mg over 0.5 mg/kg/minute. Doses 120 mg or greater: IVPB at 4 mg/minute. furosemide injection 20 mg (LASIX) Given 12/05/2021 9:23 AM CDT 20 mg 20 mg, intravenous, 2 times daily, First dose on Thu12/04/21 at 1700, Adults: Doses less than 120 mg: IV push over 20 mg/minute. Doses 120 mg or greater: IVPB at 4 mg/minute. Peds/Neonates: Doses less than 120 mg over 0.5 mg/kg/minute. Doses 120 mg or greater: IVPB at 4 mg/minute. Given 12/04/2021 5:18 PM CDT 20 mg furosemide tablet 20 mg (LASIX) Given 12/08/2021 9:17 AM CDT 20 mg 20 mg, oral, 2 times daily, First dose on Thu12/06/21 at 0900 Given 12/07/2021 5:06 PM CDT 20 mg Given 12/07/2021 8:44 AM CDT 20 mg hydrALAZINE tablet 10 mg (APRESOLINE) Given 12/05/2021 12:21 AM CDT 10 mg 10 mg, oral, Once, On Thu12/04/21 at 2345, For 1 dose hydrALAZINE tablet 25 mg (APRESOLINE) Given 12/05/2021 3:45 AM CDT 25 mg 25 mg, oral, Once, On Thu12/05/21 at 0330, For 1 dose hydrALAZINE tablet 25 mg (APRESOLINE) Given 12/05/2021 6:09 AM CDT 25 mg 25 mg, oral, Once, On Thu12/05/21 at 0600, For 1 dose HYDROmorphone (PF) injection 0.2 mg Given 12/04/2021 6:21 AM CDT 0.2 mg (DILAUDID) 0.2 mg, intravenous, Every 10 min PRN, moderate pain or score 4-6 of 10, severe pain or score 7-10 of 10, Starting on Thu12/03/21 at 2151, Notify service before administration. Given 12/04/2021 3:45 AM CDT 0.2 mg Given 12/03/2021 11:58 PM CDT 0.2 mg insulin regular 1 Rate/Dose Verify 12/04/2021 2:00 AM 0.9 Units/hr 0. 9 mL/hr Unit/mL in NaCl 0.9% 100 CDT mL infusion 0-25 Units/hr (0-25 mL/hr), intravenous, Continuous Infusion: Per Instructions PRN, Initiate infusion for glucose greater than 180 mg/dL, Starting on Thu12/03/21 at 1250, NOTIFY PRESCRIBER IF: Glucose is not within target range after 4 hours of IV insulin infusion. Patient starts eating. (50% of clear liquid diet or more) Patient starts bolus tube feedings. The insulin infusion has been either 0 to 1 unit/hour for 3 consecutive hours to consider orders to transition from IV to SQ long acting insulin. Infuse insulin into an existing line of a compatible IV solution and Y site insulin infusion into existing line below the infusion pump. Insulin infusion and existing line of compatible IV solution should each run as a primary line on separate infusion pumps at the ordered infusion rates. If no compatible IV solutions are ordered, infuse into an existing line of 0.45% NaCL infusion at 20 ml/hr. 100 Units in 100 mL, Calculator: Goal Range: 140-180 mg/dl, Starting Insulin Infusion Factor: 0.03 Rate/Dose Change 12/04/2021 1:58 AM CDT 0.9 Units/hr 0.9 mL/hr Rate/Dose Change 12/04/2021 12:56 AM CDT 0 Units/hr 0 mL/hr insulin regular injection 5 Units Given 12/04/2021 6:36 AM CDT 5 Units 5 Units, intravenous, Once, On Thu12/04/21 at 0600, For 1 dose, Use subcutaneous insulin syringe to administer if ordered for subcutaneous route. isosorbide mononitrate 24 hr tablet 15 mg Given 12/04/2021 6:37 AM CDT 15 mg (IMDUR) 15 mg, oral, Daily, First dose (after last modification) on Thu12/04/21 at 0615, Do NOT crush or chew. isosorbide mononitrate 24 hr tablet 30 mg Given 12/08/2021 9:15 AM CDT 30 mg (IMDUR) 30 mg, oral, Daily, First dose (after last modification) on Thu12/05/21 at 0900, Do NOT crush or chew. Given 12/07/2021 8:44 AM CDT 30 mg Given 12/06/2021 8:35 AM CDT 30 mg lactated ringers Rate/Dose Verify 12/04/2021 8:00 AM CDT 20 mL/hr 20 mL/hr 20 mL/hr, intravenous, Continuous, Starting on Thu12/03/21 at 1530 Rate/Dose Verify 12/04/2021 7:00 AM CDT 20 mL/hr 20 mL/hr Rate/Dose Verify 12/04/2021 6:00 AM CDT 20 mL/hr 20 mL/hr lactulose solution 20 g (CHRONULAC) Given 12/06/2021 11:38 AM CDT 20 g 20 g, oral, As needed, constipation, Starting on Thu12/03/21 at 1524, If no result from bisacodyl suppository magnesium sulfate in water IVPB 2 g New Bag 12/03/2021 3:38 PM CDT 2 g 25 mL/hr 2 g, intravenous, at 25 mL/hr, Administer over 120 Minutes, Once, On Thu12/03/21 at 1530, For 1 dose magnesium sulfate in water IVPB 2 g New Bag 12/03/2021 8:29 PM CDT 2 g 25 mL/hr 2 g, intravenous, at 25 mL/hr, Administer over 120 Minutes, Once, On Thu12/03/21 at 2015, For 1 dose magnesium sulfate in water IVPB 2 g New Bag 12/04/2021 11:46 PM CDT 2 g 25 mL/hr 2 g, intravenous, at 25 mL/hr, Administer over 120 Minutes, Once, On Thu12/04/21 at 2330, For 1 dose melatonin tablet 3 mg Given 12/07/2021 8:43 PM CDT 3 mg 3 mg, oral, Daily at bedtime, First dose on Thu12/06/21 at 2100 Given 12/06/2021 8:58 PM CDT 3 mg metoprolol tablet 12.5 mg (LOPRESSOR) Given 12/04/2021 4:38 AM CDT 12.5 mg 12.5 mg, oral, 2 times daily, First dose on Thu12/04/21 at 0430, Hold for HR < 60 or SBP < 100 metoprolol tablet 12.5 mg (LOPRESSOR) Given 12/04/2021 2:55 PM CDT 12.5 mg 12.5 mg, oral, Once, On Thu12/04/21 at 1400, For 1 dose metoprolol tablet 37.5 mg (LOPRESSOR) Given 12/08/2021 9:15 AM CDT 37.5 mg 37.5 mg, oral, 2 times daily, First dose (after last modification) on Thu12/08/21 at 0900, Hold for HR < 60 or SBP < 100 metoprolol tartrate tablet 25 mg (LOPRES SOR) Given 12/07/2021 8:43 PM CDT 25 mg 25 mg, oral, 2 times daily, First dose (after last modification) on Thu12/04/21 at 2100, Hold for HR < 60 or SBP < 100 Given 12/07/2021 8:44 AM CDT 25 mg Given 12/06/2021 8:58 PM CDT 25 mg metoprolol tartrate tablet 6.25 mg Given 12/03/2021 7:52 AM CDT 6.25 mg (LOPRESSOR) 6.25 mg, oral, Once, On Thu12/03/21 at 0715, For 1 dose, Pre-Op, Do not give if patient has heart rate less than 50 beats per minute, if systolic blood pressure is less than 90 mmHg or if diastolic blood pressure is less than 40 mm Hg, or if patient has an allergy to metoprolol. mupirocin 2 % nasal ointment 1 Given 12/06/2021 8:36 AM CDT 1 ap plication application (BACTROBAN) 1 application, each nostril, 2 times daily, First dose on Thu12/03/21 at 2100, For 6 doses, Instill 0.5 gram (1 application) into each nostril. Massage nares for one minute after instilling the ointment. If patient has completed a 5 day course prior to surgery, discontinue mupirocin. Apply to each nare. After application, press nostrils together and release repeatedly for 1 minute to spread ointment throughout the nares. Given 12/05/2021 8:45 PM CDT 1 application Given 12/05/2021 9:24 AM CDT 1 application NaCl 0.9% infusion Rate/Dose Verify 12/04/2021 8:00 AM CDT 6 mL/hr 6 mL/hr 3-6 mL/hr, intravenous, Continuous, Starting on Thu12/03/21 at 1600, Hemodynamic Monitoring Lines: catheter lumen of central venous catheter (CVC) and Arterial lines for Intensive Care Units (ICU), Progressive Care Unit (PCU) and Telemetry units. Rate/Dose Verify 12/04/2021 7:00 AM CDT 6 mL/hr 6 mL/hr Rate/Dose Verify 12/04/2021 6:00 AM CDT 6 mL/hr 6 mL/hr naloxone injection 0.2 mg (NARCAN) 0.2 mg, intravenous, As needed, respirat ory depression, Starting on Thu12/03/21 at 1524, For RASS Score -4 or less, respiratory rate of l ess than 8 breaths/min. Notify provider/service and rapid response team (if av ailable at institution). nitroglycerin 200 mcg/mL in D5W 250 mL i nfusion (TRIDIL) - ADS Override Pull Starting on Thu12/03/21 at 2120, For 1 do se, Created by cabinet override bottle: 50 mg in 250 mL nitroglycerin 200 mcg/mL Rate/Dose Verify 12/04/2021 7:00 AM 17.5 m cg/min 5.25 mL/hr in D5W 250 mL infusion CDT (TRIDIL) 2.5-50 mcg/min (0.75-15 mL/hr), intravenous, Continuous, Starting on Thu12/03/21 at 2130, bottle: 50 mg in 250 mL, Type: Titrate, Initiate at: Other, Rate: 2.5 mcg, Titrate at: 5 mcg/min. every 5 min., Goal: Relieve chest pain, MAP 60-80 Rate/Dose Verify 12/04/2021 6:00 AM CDT 17.5 mcg/min 5.25 mL/hr Rate/Dose Verify 12/04/2021 5:00 AM CDT 17.5 mcg/min 5.25 mL/hr norepinephrine 16 Rate/Dose Change 12/03/2021 3:25 0.06 mcg/kg/min 20 .7 mL/hr mcg/mL in D5W 250 mL PM CDT infusion 0-0.3 mcg/kg/min ? 92.2 kg Dosing weight (0-103.725 mL/hr, rounded to 0-103.73 mL/hr), intravenous, Continuous, Starting on Thu12/03/21 at 1115, In OR Protect from light and avoid extravasation, Patient Type: Cardiovascular Surgery, Initiate at: Other, Rate: Per Provider, Titrate at: Other, Titrate: Per Provider, Goal: Other, Goal: Per Provider Rate/Dose Verify 12/03/2021 3:20 PM CDT 0.04 mcg/kg/min 13.83 mL/hr Rate/Dose Change 12/03/2021 3:03 PM CDT 0.04 mcg/kg/min 13.83 mL/hr norepinephrine 16 Rate/Dose Change 12/03/2021 9:47 0.01 mcg/kg/min 3. 46 mL/hr mcg/mL in D5W 250 mL PM CDT infusion 0-0.1 mcg/kg/min ? 92.2 kg Dosing weight (0-34.575 mL/hr, rounded to 0-34.58 mL/hr), intravenous, Continuous, Starting on Thu12/03/21 at 1545, Protect from light and avoid extravasation, Patient Type: Cardiovascular Surgery, Initiate at: 0.01 mcg/kg/min., Titrate at: 0.01 mcg/kg/min. every 5 min., Goal: MAP 60-80 Rate/Dose Change 12/03/2021 9:34 PM CDT 0.04 mcg/kg/min 13.8 mL/hr Rate/Dose Change 12/03/2021 9:31 PM CDT 0.03 mcg/kg/min 10.4 mL/hr ondansetron (PF) injection 4 mg (ZOFRAN) Given 12/04/2021 1:24 PM CDT 4 mg 4 mg, intravenous, Every 6 hours PRN, nausea, vomiting, Starting on Thu12/03/21 at 1524, For 48 hours, Reassess for nausea or vomiting after at least 10 minutes. If nausea or vomiting persists administer next ordered antiemetic medications (order for antiemetic medication administration ondansetron then droperidol). Given 12/04/2021 6:27 AM CDT 4 mg Given 12/03/2021 10:02 PM CDT 4 mg oxyCODONE IR tablet 10 mg (ROXICODONE) Given 12/04/2021 8:19 AM CDT 10 mg 10 mg, oral, Every 4 hours PRN, severe pain or score 7-10 of 10, Starting on Thu12/03/21 at 1524, Patient is able to take oral medications. Given 12/04/2021 4:38 AM CDT 10 mg Given 12/04/2021 12:49 AM CDT 10 mg oxyCODONE IR tablet 2.5 mg (ROXICODONE) 2.5 mg, oral, Every 4 hours PRN, moderat e pain or score 4-6 of 10, Starting on Thu12/04/21 at 2257, Patient is able to take oral medicatio ns. oxyCODONE IR tablet 5 mg (ROXICODONE) Given 12/04/2021 6:53 PM CDT 5 mg 5 mg, oral, Every 4 hours PRN, moderate pain or score 4-6 of 10, Starting on Thu12/03/21 at 1524, Patient is able to take oral medications. Given 12/04/2021 1:34 PM CDT 5 mg Given 12/03/2021 8:45 PM CDT 5 mg oxyCODONE IR tablet 5 mg (ROXICODONE) 5 mg, oral, Every 4 hours PRN, severe pain or score 7- 10 of 10, Starting on Thu12/04/21 at 2257, Patient is able to take oral medicatio ns. pantoprazole DR tablet 40 mg (PROTONIX) Given 12/04/2021 8:18 AM CDT 40 mg 40 mg, oral, Daily, First dose on Thu12/04/21 at 0900, Swallow whole. Do NOT crush, chew, or split tablet. pantoprazole DR tablet 40 mg (PROTONIX) Given 12/08/2021 6:02 AM CDT 40 mg 40 mg, oral, Daily before breakfast, First dose on Thu12/06/21 at 0700, Swallow whole. Do NOT crush, chew, or split tablet. Given 12/07/2021 6:02 AM CDT 40 mg Given 12/06/2021 7:08 AM CDT 40 mg polyethylene glycol powder packet 17 g Given 12/06/2021 8:35 AM CDT 17 g (MIRALAX) 17 g, oral, Daily, First dose (after last modification) on Gayatri 12/05/21 at 0900, If no bowel movement for 48 hours Avoid mixing with starch-based thickened liquids. Given 12/05/2021 9:24 AM CDT 17 g potassium chloride ER tablet 20 mEq Given 12/07/2021 8:44 AM CDT 20 mEq (KLORCON/K-TAB) 20 mEq, oral, Once, On Thu12/07/21 at 0730, For 1 dose, potassium chloride orderable was interchanged for potassium chloride tablet/capsule Swallow whole. Do NOT crush, chew, or split tablet. potassium chloride IVPB 20 mEq New Bag 12/03/2021 4:33 PM CDT 20 mEq 50 mL/hr 20 mEq, intravenous, at 50 mL/hr, Administer over 60 Minutes, Once, On Thu12/03/21 at 1615, For 1 dose, For K 3.6-3.9 mEq/L - give total of 20 mEq, Monitor the following for replacement: Potassium, Replace Potassium per: Cardiac Schedule potassium chloride IVPB 20 mEq New Bag 12/03/2021 8:23 PM CDT 20 mEq 50 mL/hr 20 mEq, intravenous, at 50 mL/hr, Administer over 60 Minutes, Once, On Thu12/03/21 at 2015, For 1 dose, Central Line with Telemetry: 20 mEq per bag over 1 hour each. propofol 10 mg/mL Rate/Dose Verify 12/03/2021 5:00 12.5 mcg/kg/min 6. 92 mL/hr infusion (DIPRIVAN) PM CDT 5-80 mcg/kg/min ? 92.2 kg Dosing weight (2.766-44.256 mL/hr, rounded to 2.77-44.26 mL/hr), intravenous, Continuous, Starting on Thu12/03/21 at 1530, Initiate at: 5 mcg/kg/min., Titrate at: 5 mcg/kg/min. every 5 min., Goal: RASS -1 Rate/Dose Change 12/03/2021 4:59 PM CDT 12.5 mcg/kg/min 6.92 mL/hr Rate/Dose Verify 12/03/2021 4:00 PM CDT 25 mcg/kg/min 13.8 mL/hr sennosides-docusate sodium 8.6-50 mg per Given 12/08/2021 9: 25 AM CDT 2 tablets tablet 2 tablet (SENOKOT-S) 2 tablet, oral, 2 times daily, First dose on Thu12/03/21 at 2100 Given 12/07/2021 8:43 PM CDT 2 tablets Given 12/06/2021 8:35 AM CDT 2 tablets simethicone chewable tablet 125 mg (MYLI CON) 125 mg, oral, Every 6 hours PRN, flatulence, Starting on Thu12/03/21 at 1524 sodium bicarbonate injection 50 mEq Given 12/03/2021 11:37 PM CDT 50 mEq 50 mEq, intravenous, Once, On Thu12/03/21 at 2330, For 1 dose tamsulosin 24 hr capsule 0.4 mg (FLOMAX) Given 12/08/2021 9:17 AM CDT 0.4 mg 0.4 mg, oral, Daily, First dose on Thu12/05/21 at 2030, Swallow whole. Do NOT crush, chew or open capsule. Given 12/07/2021 8:44 AM CDT 0.4 mg Given 12/06/2021 8:36 AM CDT 0.4 mg tranexamic acid 8 mg/mL Rate/Dose Verify 12/03/2021 5:00 PM 2 mg/kg /hr 23.05 mL/hr in NaCl 0.9% 250 mL CDT infusion (CYKLOKAPRON) 2 mg/kg/hr ? 92.2 kg Dosing weight (23.05 mL/hr, rounded to 23.1 mL/hr), intravenous, Continuous, Starting on Thu12/03/21 at 1115 Rate/Dose Verify 12/03/2021 4:00 PM CDT 2 mg/kg/hr 23.05 mL/hr Rate/Dose Verify 12/03/2021 3:20 PM CDT 2 mg/kg/hr 23.05 mL/hr documented in this encounter Active and Recently Administered Medications Times are shown in CDT. Scheduled Medication Order 12/06/2021 12/07/2021 12/08/2021 acetaminophen tablet 1,000 mg (TYLENOL) 1127 (Given - Provider: Teri Babb R.N.)170 (Given - Provider: Kristen Rodriguez R.N.)2314 (Given - Provider: Rosaura Almeida D.N.P., R.N.) 0602 (Given - Provider: Spencer Penny RShaniceN.)1147 (Given - Provider: Kristen Rodriguez R.N.)1706 (Given - Provider: Kristen Rodriguez R.N.) 0008 (Given - Provider: Yadi Ramon R.N.)0601 (Given - Provider: Yadi Ramon R.N.)1200 (Due) 1,000 mg, oral, Every 6 hours, First dos e (after last modification) on Thu12/06/21 at 1200 amiodarone tablet 200 mg (PACERONE) (CANCELED) 0836 (G iven - Provider: Kristen Rodriguez R.N.)2057 (Given - Provider: Yadi Arriaza R.N.) 0844 (Given - Provider: Kristen Rodriguez R.N.) 200 mg, oral, 2 times daily, First dose on Thu12/04/21 at 2100 amiodarone tablet 200 mg (PACERONE)(Linked Group 1) 2042 (Given - Provider: Yadi Ramon R.N.) 0916 (Given - Provider: Kristen gonzalez RShaniceNShanice) 200 mg, oral, 2 times daily, First dose on 12/07/21 at 2100, For 4 days amiodarone tablet 200 mg (PACERONE)(Linked Group 1) 200 mg, oral, Daily, First dose on Thu12/11/21 at 0900, For 30 d ays amLODIPine tablet 10 mg (NORVASC) 0844 ( Given - Provider: Kristen Rodriguez R.N.) 0916 (Given - Provider: Kristen gonzalez RShaniceNShanice) 10 mg, oral, Daily, First dose (after last modificatio n) on 12/07/21 at 0900 amLODIPine tablet 5 mg (NORVASC) (CANCELED) 0518 (Give n - Provider: Teresa Romero R.N.) 5 mg, oral, Daily, First dose (after last modification) on F 12/06/21 at 0515 amLODIPine tablet 5 mg (NORVASC) (COMPLETED) 0837 (Giv en - Provider: Kristen Rodriguez R.N.) 5 mg, oral, Once, On Thu12/06/21 at 0800, For 1 dose aspirin chewable tablet 81 mg 0836 (Given - Provider: Kristen Rodriguez R.N.) 0844 (Given - Provider: Kristen Rodriguez R.N.) 0916 (Given - Provider: Kristen Rodriguez RShaniceNShanice) 81 mg, oral, Daily, First dose on Thu12/04/21 at 0900 atorvastatin tablet 40 mg (LIPITOR) 2057 (Given - Prov ider: Yadi Arriaza R.N.) 2042 (Given - Provider: Yadi Ramon R.N.) 40 mg, oral, Daily at bedtime, First dose on Thu12/04/[address] tablet 10 mg (DULCOLAX) (CANCELED) 835 ( Given - Provider: Kristen Rodriguez R.N.)2058 (Not Given - Provider: Yadi Arriaza R.N. - Reason: Patient/family refused) 48 (Not Given - Provider: Kristen espsoito RShaniceNShanice - Reason: Patient/family refused) 10 mg, oral, 2 times daily, First dose o n Gayatri 12/05/21 at 2100, Swallow whole. Do NOT crush, chew, or split tablet. clopidogreL tablet 75 mg (PLAVIX) 0836 (Given - Provid er: Kristen Rodriguez R.N.) 0844 (Given - Provider: Kristen Rodriguez R.N.) 0917 (Given - Provider: Kristen Rodriguez R.NShanice) 75 mg, oral, Daily, First dose on Thu12/04/21 at 0900 colchicine tablet 0.3 mg (COLCRYS) 0835 (Given - Provi scott: Renee RichardsnoN.) 0844 (Given - Provider: Renee RichardsonNShanice) 0915 (Given - Provider: Kristen Rodriguez RShaniceNShanice) 0.3 mg, oral, Daily, First dose on Gayatri 12/05/21 at 0900 ezetimibe tablet 10 mg (ZETIA) 1700 (Given - Provider: Erum Rodriguez R.N.) 1706 (Given - Provider: Kristen Rodriguez RShaniceNShanice) 10 mg, oral, Every evening, First dose on Thu12/04/21 at 1800 furosemide tablet 20 mg (LASIX) 0837 (Given - Provider : Kristen Rodriguez RShaniceN.)1702 (Given - Provider: Kristen Rodriguez R.N.) 0844 (Given - Provider: Renee RichardsonN.)1706 (Given - Provider: Kristen Rodriguez R.N.) 0917 (Given - Provider: Kristen Rodriguez R.N.) 20 mg, oral, 2 times daily, First dose on Thu12/06/21 at 0900 isosorbide mononitrate 24 hr tablet 30 mg (IMDUR) 0835 (Given - Provider: Kristen Rodriguez RShaniceN.) 0844 (Given - Provider: Renee RichardsonN.) 0915 (Given - Provider: Kristen Rodriguez RShaniceNShanice) 30 mg, oral, Daily, First dose (after la st modification) on Thu12/05/21 at 0900, Do NOT crush or chew. melatonin tablet 3 mg 2057 (Given - Provider: Yadi pollard R.NShanice) 2042 (Given - Provider: Yadi Ramon RShaniceNShanice) 3 mg, oral, Daily at bedtime, First dose on Thu12/06/21 at 2100 metoprolol tablet 37.5 mg (LOPRESSOR) 914 (Given - Provider: Kristen Rodriguez RShaniceNShanice) 37.5 mg, oral, 2 times daily, First dose (after last modification) on Thu12/08/21 at 0900, Hold for HR < 60 or SBP < 100 metoprolol tartrate tablet 25 mg (LOPRESSOR) (CANCELED ) 36 (Given - Provider: Kristen Rodriguez RShaniceN.)2057 (Given - Provider: Renee ArreolaNShanice) 0844 (Given - Provider: Kristen Rodriguez R.N.)2042 (Given - Provider: Renee FinkNShanice) 25 mg, oral, 2 times daily, First dose ( after last modification) on Thu12/04/21 at 2100, Hold for HR < 60 or SBP < 100 mupirocin 2 % nasal ointment 1 application (BACTROBAN) (COMPLETED) 0836 (Given - Provider: Kristen Rodriguez R.N.) 1 application, each nostril, 2 times swapna ly, First dose on Thu12/03/21 at 2100, For 6 doses, Instill 0.5 gram (1 application) into each nostril. Massage nares for one minute after instilling the ointment. If patient has completed a 5 day course prior to surgery, discontinue mupirocin. Apply to each nare. After application, press nostrils together and release repeatedly for 1 minute to spread ointment throughout the nares. pantoprazole DR tablet 40 mg (PROTONIX) 0708 (Given - Provider: Kristen Rodriguez R.N.) 0602 (Given - Provider: Renee WillamsNShanice) 0602 (G iven - Provider: Yadi Ramon RShaniceNShanice) 40 mg, oral, Daily before breakfast, Fir st dose on Thu12/06/21 at 0700, Swallow whole. Do NOT crush, chew, or split tablet. polyethylene glycol powder packet 17 g (MIRALAX) 0835 (Given - Provider: Kristen Rodriguez RReed.) 0848 (Not Given - Provider: Kristen esposito RShaniceN. - Reason: Patient/family refused) 0927 (Not Given - Provider: Kristen esposito RShaniceN. - Reason: Patient/family refused) 17 g, oral, Daily, First dose (after las t modification) on Gayatri 12/05/21 at 0900, If no bowel movement for 48 hours Avoid mixing with starch-based thickened liquids. potassium chloride ER tablet 20 mEq (KLORCON/K-TAB) (COMPLET ED) 0844 (Given - Provider: Kristen Rodriguez RShaniceNShanice) 20 mEq, oral, Once, On 12/07/21 at 07 30, For 1 dose, potassium chloride orderable was interchanged for potassium chloride tablet/capsule Swallow whole. Do NOT crush, chew, or split tablet. sennosides-docusate sodium 8.6-50 mg per tablet 2 tabl et (SENOKOT-S) 0835 (Given - Provider: Kristen Rodriguez RShaniceNShanice)2058 (Not Given - Provider: Renee ArreolaNShanice - Reason: Patient/family refused) 0849 (Not Given - Provider: Kristen Rodriguez R.N. - Reason: Patient/family refused)2042 (Given - Provider: Yadi Ramon RShaniceNShanice) 0925 (Given - Provider: Kristen gonzalez RShaniceNShanice) 2 tablet, oral, 2 times daily, First dose on Thu12/03/21 at 2100 tamsulosin 24 hr capsule 0.4 mg (FLOMAX) 0836 (Given - Provider: Kristen Rodriguez RShaniceN.) 0844 (Given - Provider: Kristen Rodriguez R.N.) 0917 (Given - Provider: Kristen Rodriguez RShaniceNShanice) 0.4 mg, oral, Daily, First dose on Thu at 2030, Swallow whole. Do NOT crush, chew or open capsule. PRN Medication Order 12/06/2021 12/07/2021 12/08/2021 acetaminophen tablet 1,000 mg (TYLENOL) (CANCELED) 045 2 (Given - Provider: Teresa Romero RShaniceNShanice) 1,000 mg, oral, Every 6 hours PRN, mild pain or score 1-3 of 10, Starting on Thu12/05/21 at 1800 albuterol nebulizer solution 2.5 mg 2.5 mg, nebulization, Every 6 hours PRN, wheezing, shortness of breath, Starting on Thu12/03/21 at 1524, Albuterol nebs were interchanged for albuterol/levalbuterol MDI (same frequency) benzocaine-menthoL 15-3.6 mg per lozenge 1 lozenge (CEPACOL) 1 lozenge, oral, As needed, sore throat, Starting on Thu12/03/[address] tablet 10 mg (DULCOLAX) 10 mg, oral, 2 times daily PRN, constipa tion, Starting on Thu12/07/21 at 1045, Swallow whole. Do NOT crush, chew, or split tablet. bisacodyL suppository 10 mg (DULCOLAX) 10 mg, rectal, Daily PRN, constipation, Starting on Thu12/03/21 at 1524, If no bowel movement for 72 hours dexAMETHasone injection 4 mg (DECADRON) 4 mg, intravenous, Every 6 hours PRN, na usea unrelieved by zofran, Starting on Thu12/04/21 at 0842 HYDROmorphone (PF) injection 0.2 mg (DILAUDID) 0.2 mg, intravenous, Every 10 min PRN, m oderate pain or score 4-6 of 10, severe pain or score 7-10 of 10, Starting on Thu12/03/21 at 2151, Notify service before administration. lactulose solution 20 g (CHRONULAC) 1138 (Given - Prov ider: Teri Babb R.N.) 20 g, oral, As needed, constipation, Sta rting on Thu12/03/21 at 1524, If no result from bisacodyl suppository naloxone injection 0.2 mg (NARCAN) 0.2 mg, intravenous, As needed, respirat ory depression, Starting on Thu12/03/21 at 1524, For RASS Score -4 or less, respiratory rate of less than 8 breaths/min. Notify provider/service and rapid response team (if available at institution). oxyCODONE IR tablet 2.5 mg (ROXICODONE)(Linked Group 2) 2.5 mg, oral, Every 4 hours PRN, moderat e pain or score 4-6 of 10, Starting on Thu12/04/21 at 2257, Patient is able to take oral medications. oxyCODONE IR tablet 5 mg (ROXICODONE)(Linked Group 2) 5 mg, oral, Every 4 hours PRN, severe pa in or score 7-10 of 10, Starting on Thu12/04/21 at 2257, Patient is able to take oral medications. simethicone chewable tablet 125 mg (MYLICON) 125 mg, oral, Every 6 hours PRN, flatulence, Starting on 12/03 at 1524 Linked Groups Order Group 1: amiodarone tablet 200 mg (PACERONE)Jump to med 200 mg, oral, 2 times daily, First dose on Thu12/07/21 at 2100, For 4 days Followed by amiodarone tablet 200 mg (PACERONE)Jump to med 200 mg, oral, Daily, First dose on Thu at 0900, For 30 days Group 2: oxyCODONE IR tablet 2.5 mg (ROXICODONE)Jump to med 2.5 mg, oral, Every 4 hours PRN, moderat e pain or score 4-6 of 10, Starting on Thu12/04/21 at 2257
Patient is able to take oral medications.
Or oxyCODONE IR tablet 5 mg (ROXICODONE)Jump to med 5 mg, oral, Every 4 hours PRN, severe pa in or score 7-10 of 10, Starting on Thu12/04/21 at 2257
Patient is able to take oral medications.
documented in this encounter Additional Health Concerns Assessment Noted Time PHQ-9 Depression Total Score: 10 11/27/2021 1:28 PM CD T documented as of this encounter Care Teams Loss Control Technician Relationship Specialty Start Date End Date Elsewhere, Pcp PCP - General 12/05/21 documented as of this encounter
--- OUTSIDE RECORDS SUMMARY | 2022-05-16 12:19 | XMS_ITS | Encounter Summary ---
:1945 Author Organization [facility] Address [address] [place] [address] Care Team Providers Name Role Phone Elsewhere, Pcp Primary Care Provider Unavailable Encounter Details Date Type Department Care Team Description 12/03/2021 Documentation Division of Cardiovascular [facility] [place], (Work ) [address] [place] [address] Social History Tobacco Use [...] or relatives? How often do you attend mandaeism or taoist 1 to 4 times per year 11/08/2021 services? Do you belong to any clubs or organizations Yes 11/08/2021 such as mandaeism groups, unions, fraternal or athletic groups, or [...] place to sleep or slept in a jail (including now)? Education Answer Date Recorded What [...] documented as of this encounter Care Teams Conductor And Engineer Relationship Specialty Start Date End Date Elsewhere, Pcp PCP - General 12/05/21 documented as of this encounter
--- OUTSIDE RECORDS SUMMARY | 2022-05-16 12:19 | XMS_ITS | Encounter Summary ---
:1945 Author Organization [facility] Address [address] [place] [address] Care Team Providers Name Role Phone Unavailable Primary Care Provider Unavailable Encounter Details Date Type Department Care Team Description 12/03/2021 Ancillary Procedure Department of Anesthesiology Social History Tobacco Use Types Packs/Day Years [...] or relatives? How often do you attend zoroastrian or episcopal 1 to 4 times per year 11/08/2021 services? Do you belong to any clubs or organizations Yes 11/08/2021 such as zoroastrian groups, unions, fraternal or athletic groups, or [...] place to sleep or slept in a fdc (including now)? Education Answer Date Recorded What is the highest level of school you have completed or 12 th grade 11/08/2021 the highest degree you have received? Sex Assigned at Date Recorded Male 11/08/2021 12:12 PM CDT documented as of this encounter Plan of Treatment Not on filedocumented as of this encounter Procedures Procedure Name Priority Date/Time Associated Comments Diagnosis ANESTHESIOLOGY IMAGE Routine 12/03/2021 2:40 PM R esults for this EXAM CDT procedure are i n the results section. documented in this encounter Results Non-Radiology Image-Anesthesiology Image Exam (12/03/2021 2:40 PM CDT) Specimen (Source) Anatomical Collection Method Collection Time Re ceived Time Location / / Volume Laterality 12/03/2021 2:39 PM CDT Narrative [facility] - 12/03/2021 4:33 PM CDT This order has been created and auto-finalized to support the import of images acquired without order. The clini lexii documentation to support these images can be found on the encounter rod t produced images. Provider Not In System IMG NON RAD IMAGING PROCEDUR ES Performing Organization Address City/State/ZIP Code Phon e Number [facility] NA documented in this encounter Visit Diagnoses Not on filedocumented in this encounter Additional Health Concerns Assessment Noted Time PHQ-9 Depression Total Score: 10 11/27/2021 1:28 PM CD T documented as of this encounter
--- OUTSIDE RECORDS SUMMARY | 2022-05-16 12:19 | XMS_ITS | Encounter Summary ---
:1945 Author Organization [facility] Address [address] [place] [address] Care Team Providers Name Role Phone Unavailable Primary Care Provider Unavailable Encounter Details Date Type Department Care Team Description 12/03/2021 Ancillary Procedure RST ROMB MAIN OR Dario Wiggins, [address] [facility] [place] [address] [address] [facility] [phone] [place] [id number] Social History Tobacco Use Types Packs/Day Years [...] or relatives? How often do you attend latter-day or church 1 to 4 times per year 11/08/2021 services? Do you belong to any clubs or organizations Yes 11/08/2021 such as latter-day groups, unions, fraternal or athletic groups, or [...] Procedure Name Priority Date/Time Associated Comments Diagnosis (JODI) - INTRAOPERATIVE Routine 12/03/2021 2:50 PM Results for this WITH COLOR (PROBE NOT CDT proced ure are in PLACED) the results section. documented in this encounter Results (JODI) - INTRAOPERATIVE WITH COLOR (PROBE NOT PLACED) (12/03/2021 2:50 PM CDT) P athologist Signature Ejection [facility] CV EIMS Fraction Anatomical Region Laterality Modality Echocardiography Specimen (Source) Anatomical Collection Method Collection Time Re ceived Time Location / / Volume Laterality 12/03/2021 6:39 AM CDT Impressions 12/03/2021 3:26 PM CDT PROCEDURETransesophageal echocardiogram performed at the request of the primary diesel service apprentice. Transesophageal echocardiogram completed without complications. PRE-BYPASS:Pre-bypass left [...] performed at the request of the primary diesel service apprentice. Transesophageal echocardiogram completed without complications. PRE-BYPASS:Pre-bypass left [...] Documents. Dario Wiggins M.D. CV ECHO PROCEDURES documented in this encounter Visit Diagnoses Not on filedocumented in this encounter Additional Health Concerns Assessment Noted Time PHQ-9 Depression Total Score: 10 11/27/2021 1:28 PM CD T documented as of this encounter
--- OUTSIDE RECORDS SUMMARY | 2022-05-16 12:19 | XMS_ITS | Encounter Summary ---
:1945 Author Organization [facility] Address [address] [place] [id number] Care Team Providers Name Role Phone Elsewhere, Pcp Primary Care Provider Unavailable Reason for Referral Outpatient (Routine) - Closed Specialty Diagnoses / Procedures Referred By Contact Refer red To Contact Cardiovascular Disease Diagnoses Bypass Coronary Artery Graft [facility] [address] [place] [phone] Referral ID Status Reason Start Date Expiration Date Visits Requ ested Visits Authorized [id number] Closed 12/05/2021 12/05/2022 1 1 Scheduling Instructions 1 to 3 month post cardiac surgery follow -up visit Outpatient (Routine) - Closed Specialty Diagnoses / Procedures Referred By Contact Refer red To Contact Video Medicine Diagnoses Bypass Coronary Artery Graft Status Post Aline L[facility]o [facility] [address] [place] [phone] Referral ID Status Reason Start Date Expiration Date Visits Requ ested Visits Authorized [id number] Closed 12/05/2021 12/05/2022 1 1 Encounter Details Date Type Department Care Team Description 12/05/2021 Clinical Communication RST HIM Dario Wiggins, [address] [place] [address], [place] [address] [facility] [phone] [place] [address] Social History Tobacco Use Types Packs/Day Years [...] How often do you attend mormonism or denominational 1 to 4 times per year 11/08/2021 [...] place to sleep or slept in a halfway (including now)? Education Answer Date Recorded What is the highest level of school you have completed or 12 th grade 11/08/2021 the highest degree you have received? Sex Assigned at Date Recorded Male 11/08/2021 12:12 PM CDT documented as of this encounter Plan of Treatment Scheduled Referrals Name Type Priority Associated Order Schedule Diagnoses Video anyplace visit Outpatient Referral Routine Bypass Castillo ry Expected: Artery Graft 12/12/2021 Status Post (Approximate), Expires: 03/07/2023 Cardiovascular Disease Outpatient Referral Routine Bypass Connor nary Expected: office visit (clinic) Artery Graft 2021 Status Post (Approximate), Expires: 03/07/2023 documented as of this encounter Visit Diagnoses Diagnosis Bypass Coronary Artery Graft Status Post - Primary documented in this encounter Additional Health Concerns Assessment Noted Time PHQ-9 Depression Total Score: 10 11/27/2021 1:28 PM CD T documented as of this encounter Care Teams Standards Analyst Relationship Specialty Start Date End Date Elsewhere, Pcp PCP - General 12/05/21 documented as of this encounter
--- OUTSIDE RECORDS SUMMARY | 2022-05-16 12:19 | XMS_ITS | Encounter Summary ---
:1945 Author Organization [facility] Address [address] [place] [address] Care Team Providers Name Role Phone Unavailable [...] or relatives? How often do you attend uatsdin or yazdanism 1 to 4 times per year 11/08/2021 services? Do you belong to any clubs or organizations Yes 11/08/2021 such as uatsdin groups, unions, fraternal or athletic groups, or [...] Associated Comments Diagnosis ANESTHESIOLOGY IMAGE Routine 12/03/2021 6:50 AM R esults for this EXAM CDT procedure are i n the results section. documented in this encounter Results Non-Radiology Image-Anesthesiology Image Exam (12/03/2021 6:50 AM CDT) Specimen (Source) Anatomical Collection Method Collection Time Re ceived Time Location / / Volume Laterality 12/03/2021 6:46 AM CDT Narrative IIMS - 12/03/2021 9:36 AM CDT This order has been created and [...]
--- OUTSIDE RECORDS SUMMARY | 2022-05-16 12:19 | XMS_ITS | Encounter Summary ---
:1945 Author Organization [facility] Address [address] [place] [address] Care Team Providers Name Role Phone Elsewhere, Pcp Primary Care Provider Unavailable Reason for Visit Reason Comments Emergent Findings ECG Results Encounter Details Date Type Department Care Team Description 12/03/2021 Clinical Department of Siva Hearn Findi ngs Communication Cardiovascular [facility] (ECG Results ) Medicine in [place] [address] [facility] [address] [place] [phone] Social History Tobacco Use Types Packs/Day Years [...] or relatives? How often do you attend amish or temple 1 to 4 times per year 11/08/2021 services? Do you belong to any clubs or organizations Yes 11/08/2021 such as amish groups, unions, fraternal or athletic groups, or [...] place to sleep or slept in a care home (including now)? Education Answer Date Recorded What is the highest level of school you have completed or 12 th grade 11/08/2021 the highest degree you have received? Sex Assigned at Date Recorded Male 11/08/2021 12:12 PM CDT documented as of this encounter Miscellaneous Notes Telephone Encounter - Francisco Landers CRAT - 12/03/2021 8:42 PM CDT Emergent Result: ECG result for Angel Doran showed ST Elevation in Anterolateral leads wasnoted and communicated to RN on 03-Dec-2021 at 20:38 via Phone Call. documented in this encounter Plan of Treatment Not on filedocumented as of this encounter Visit Diagnoses Not on filedocumented in this encounter Additional Health Concerns Assessment Noted Time PHQ-9 Depression Total Score: 10 11/27/2021 1:28 PM CD T documented as of this encounter Care Teams Railroad Brakeman Relationship Specialty Start Date End Date Elsewhere, Pcp PCP - General 12/05/21 documented as of this encounter
--- OUTSIDE RECORDS SUMMARY | 2022-05-16 12:20 | XMS_ITS | Encounter Summary ---
:1945 Author Organization [facility] Address [address] [place] [address] Care Team Providers Name Role Phone Unavailable Primary Care Provider Unavailable Encounter Details Date Type Department Care Team Description 12/03/2021 Anesthesia Event RST ROMB MAIN OR Ginny Moon M.D. [address] [place] [phone] [facility] Karyn Weller, SKIP TRACER, VIDEO GAME TECHNICIAN [address] [place] [phone] [place] [address] Anesthesia Record Procedure Summary Procedure Name Responsible Anesthesia Start Anesthesia Stop Time Anesthesiologist Time CORONARY ARTERY Ginny Moon M.D. 12/03/21 0810 12/03/21 1529 BYPASS GRAFT X1, INTERNAL MAMMARY ARTERY. (Chest) Events Date Time Event Comment 12/03/2021 0810 An Start Machine/Equipmen t Checked Infection Precautions Foll owed Procedure/Site Verified NPO Sta tus Verified Supine Standard ASA Mon itors Applied 0833 Invasive catheter placement 0833 An Induction 0841 An Intubation 0855 Invasive catheter placement RIJ DL w/ clip in 3L 0855 Turnover to Proceduralist 0916 An Start Data 0920 an stop data 0954 Proc Start 1002 Lungs Down During Sternal Split 1002 Sternal Split 1056 ACT Adequate for CPB 1102 An Start Data 1102 CO2 on to Field 1110 Art Line Pulse/Test 1115 An CV Bypass init 1118 Lab Event 1125 In-Line Monitor Calibrated 1130 AN Active Cool 1130 An Clamp On 1138 Cooling Stop 1204 Notified of Plegia Time 1214 Notified of Plegia Time 1229 AN Active Warm 1250 An Clamp Off 1251 Warming Stop 1253 Flow Per Surgeon 1259 An CV Bypass Ended 1305 An CV Bypass init 1331 An CV Bypass Ended 1345 an stop data 1417 Sternal Closure 1447 Anesthesia Time Out 1449 Turnover to ANE Staff 1450 Block Start PIFP blocks 1450 Proc Fin 1455 Block End 1508 Transfer to ICU/PCU Anesthesia t ransport medically necessary Report received and care transferred Venus l signs stable during transfer Ventila tion and oxygen saturation stabl e during transport 1508 Monitored Transport 1508 an stop data 1529 An End I completed my h andoff to the receiving staff during which we 1. Identified the p atient 2. Identified the responsible provider 3. Reviewed the pertinent me dical history 4. Discussed the hanks rgical course 5. Reviewed intra-o p anesthesia management and i ssues during anesthesia 6. Se t expectations for post-procedure p eriod 7. Allowed opportunity for questions and acknowledgement of understanding. Name Total midazolam 1 mg/mL injection 1 mg fentanyl injection 50 mcg/mL 100 mcg propofol 10 mg/mL 70 mg vecuronium 10 mg injection 7 mg heparin 1,000 units/mL injection 37,000 Units heparin 1,000 units/mL injection 20,000 Units phenylephrine 100 mcg/mL injection 1,700 mcg phenylephrine 100 mcg/mL injection 1,900 mcg ePHEDrine PF 5 mg/mL syringe injection 25 mg calcium chloride 100 mg/mL injection 2,500 mg dexamethasone 4 mg/mL injection 8 mg mupirocin nasal ointment 2% 1 application protamine 10 mg/mL injection 390 mg granisetron (KYTRIL) PF injection 1 mg/mL 1 mg glycopyrrolate 0.2 mg/mL injection 0.4 mg sugammadex 100 mg/mL injection 200 mg acetaminophen injection 10mg/ml 1,000 mg phenylephrine 20 mg/250 mL infusion 1.72 mg [place] Cardioplegia 1,000 mL 3,000 mL perfusion prime builder 1,050 mL sodium bicarbonate 1 mEq/mL injection 50 mEq sodium bicarbonate 1 mEq/mL injection 100 mEq tranexamic acid pump prime 40 mg (CYKLOKAPRON) 40 mg rocuronium 10 mg/mL injection 100 mg norepinephrine 16 mcg/mL in D5W 250 mL infusion 0.18 m g norepinephrine 16 mcg/mL in D5W 250 mL infusion 0.53 m g methadone injection 28.1 mg (DOLOPHINE) 25 mg ceFAZolin injection 2,000 mg (ANCEF) 4 g clevidipine 0.5 mg/mL bolus 0.125 mg tranexamic acid 950 mg in NaCl 0.9% IVPB 950 mg tranexamic acid 8 mg/mL in NaCl 0.9% 250 mL infusion ( CYKLOKAPRON) 823.65 mg vasopressin 1 unit/mL injection 10 Units vasopressin 20 Units/mL injection 6 Units EPINEPHrine 16 mcg/mL in NaCl 0.9% mL 250 mL infusion (ADRENALIN) 0.53 mg EPINEPHrine dilution 10 mcg/mL (1 mL) injection 20 mcg amiodarone 50 mg/mL injection 150 mg magnesium sulfate injection 2 g amiodarone 1.8 mg/mL in dextrose 200 mL infusion (NEXT ERONE/CORDARONE) 121 mg haloperidol 5 mg/mL injection 1 mg insulin regular 1 Unit/mL in NaCl 0.9% 100 mL infusion 6.61 Units potassium chloride 10 mEq in 50 mL IVPB 10 mEq liposomal bupivacaine PF 1.3% injection 20 mL bupivacaine PF 0.25% injection 20 mL propofol 10 mg/mL infusion 177.49 mg caffeine-sodium benzoate 250 mg (125 mg caffeine)/mL i njection 125 mg plasmalyte-A free drip 2,000 mL plasmalyte-A free drip 1,000 mL Agents No agents on file. Blood Name Total AUTOLOGOUS RBC-CELL SALVAGE 605 mL Lines, Drains, and Airways Type Details Placement Removal Peripheral IV Placement Date: 12/03/21; 12/03/21 0747 by Placement Time: 0747; Cortez Duff Catheter Size: 18 G; Orientation: Anterior, Lower, Right; Location: Forearm; Site Prep: Chlorhexidine (Preferred); Insertion Attempts: 1 Peripheral IV Placement Date: 12/03/21; 12/03/21 0850 by Placement Time: 0850; Karyn Weller Catheter Size: 14 G ; G, SKIP TRACER, VIDEO GAME TECHNICIAN Orientation: Left; Location: Wrist Wound 12/03/21; 1205; N; 12/03/21 1205 by Incision; Sternum Nadine Mcgee R.N. Pacer Wires 12/03/21; 1307; mani; 12/03/21 1307 by Atrial and Ventricular Adan, Cristian A, R.N. Wound 12/03/21; 1341; N; Leg; 12/03/21 1341 by Left, Proximal, Medial Adan, Cristian A, R.N. Wound 12/03/21; 1342; N; Leg; 12/03/21 1342 by Left, Medial, Mid Adan, Cristian A, R.N. Wound 12/03/21; 1342; N; Leg; 12/03/21 1342 by Distal, Left, Medial Adan, Cristian A, R.N. Arterial Line Placement Date: 12/03/21; 12/03/21 08 by 12/04 0915 by Placemnt Time: 832 Karyn Weller Julie (created via procedure LIMA Mckay CRNA A, R.N. documentation); Size: 20 G; Orientation: Left; Location: Radial; Site Prep: Chlorhexidine (Preferred); Technique: Ultrasound guidance; Insertion Attempts: 2; Securement: Securement dressing, Securement device; Removal Date: 12/04/21; Removal Time: 914; Removal Reason: Per order ETT Placement Date: 12/03/21; 12/03/21840 by 12/03 by Placement Time: 840 Karyn Weller Al lison R, (created via procedure GLIMA CRNA L.R.T., R RT-ACCS documentation); Mask Ventilation: Easy mask; Type: Standard ETT; Single Lumen Tube Size: 8 mm; Cuffed: Yes; Location: Oral; Grade View: Grade 2A; Insertion Attempts: 1; Placement Verification: Bilateral breath sounds, Positive ETCO2, Symmetrical chest wall movement; Removal Date: 12/03/21; Removal Time: 173 CVC Triple Lumen Placement Date: 12/03/21; 12/03/21 08 by 02/17 0915 by Placement Time: 0854 Ginny Moon Concannon, Julie (created via procedure Alesia A, R.N. documentation); Hand Hygiene: Yes; Site Prep: Chlorhexidine (Preferred); Sterile Barrier Used: Cap, Gloves, Gown, Large drape, Mask (Clinician), Mask (All others in room); Size: 7 Fr; Type: Temporary (non-tunneled, non-implanted); Orientation: Right; Location: Internal jugular; Technique: Ultrasound guidance; Insertion Attempts: 1; Securement: Sutured; Removal Date: 12/04/21; Removal Time: 0915; Removal Reason: Per order Introducer 12/03/21; 0854 (created 12/03/21 0854 by 2 1204 by via procedure Ginny Moon Opiela, Kelsey M, documentation); Temporary M.D. R.N. (non-tunneled, non-implanted); Yes; Yes; Yes; Chlorhexidine (Preferred); Cap, Gloves, Gown, Large drape, Mask (Clinician), Mask (All others in room); Internal jugular; Right; Double lumen; Sutured; 12/05/21; 1204 Indwelling Urinary Placement Date: 12/03/21; 12/03/21 0939 by 1215 by Catheter Placement Time: 0939; Leon Aviles Kelsey M, Inserted by: [facility]; Type: III R.NShanice Khan, Other (Comment) (coloplast); Size: 16 Fr.; Balloon Size: 10 mL; Urine Returned: Yes; Removal Date: 12/05/21; Removal Time: 1215; Removal Reason: Criteria for drain removal met Y Chest Tube 1 and 2 12/03/21; 1352; Right; 12/03/21 1352 by 03/20 1553 by Mediastinal; 32 Fr; Left; Cristian Arellano Opi ela, Kelsey M, Mediastinal; 32 Fr; R.N. R.N. Criteria for drain removal met Chest Tube Placement Date: 12/03/21; 12/03/21 1353 by 12/06 1200 by Placement Time: 1353; Cristian Arellano Prokopo vic, Inserted by: charlette Peterson, R ShaniceNShanice Location: Pleural; Size: 32 Fr; Drainage System: [place]/nonsuction water seal drainage; Removal Date: 12/06/21; Removal Time: 1200 documented in this encounter Social History Tobacco Use Types Packs/Day Years [...] How often do you attend uatsdin or jew 1 to 4 times per year 11/08/2021 [...] PM CDT documented as of this encounter OR Notes Anesthesia Postprocedure Evaluation - Karyn Weller APRN, CRNA - 12/03/2021 3:33 PM CDT Patient: Angel Doran Procedure Summary Date: 12/03/21 Room / Location: [place] [address] ROM 01 72 / [facility] [place] [facility] in [place], [place] Anesthesia Start: 08 Anesthesia Stop: 1529 Procedures: CORONARY ARTERY BYPASS GRAFT X1, INTERNAL MAMMARY ARTERY. (N/A Chest) CORONARY ARTERY BYPASS GRAFT X2, VEIN. (N/A Chest) HARVEST VEIN ENDOSCOPY LOWER EXTREMITY (Left Leg Upper) Diagnosis: Coronary Artery Disease With Stable Angina (HCC) Preoperative Examination Cardiovascular (Coronary Artery Disease, Stable Angina (HCC) [I25.118],) (Preoperative Examination Cardiovascular [Z01.810].) Providers: Dario Wiggins M.D. Responsible Provider: Ginny Moon M.D. Anesthesia Type: general ASA Status: 4 Anesthesia Type: general Last vitals Vitals Value Taken Time BP Temp Pulse 89 12/03/21 1533 Resp 15 12/03/21 1533 SpO2 100 % 12/03/21 1533 Vitals shown include unvalidated device data. Please reference Vitals flowsheet for most recent vital signs. Anesthesia Post Evaluation Patient Disposition: monitored unit, expectation for recovery time deferred to receiving unit Cardiovascular status: hemodynamics (HR & BP) acceptable Respiratory status: mechanically ventilated Temperature: normothermic Oxygen requirements: assisted ventilation (non-invasive or mechanical ventilation) with additional oxygen Level of consciousness: unconscious, patient unable to participate in evaluation Pain score: pain unable to be assessed Post Op nausea/vomiting: none Hydration status: hypo or hypervolemic requiring ongoing treatment Anesthesia Procedure Notes - Karyn Weller APRN, CRNA - 12/03/2021 2:56 PM CDTAssociated Order(s): Regional Block Regional Block Date/Time: 12/03/2021 2:56 PM Performed by: Ginny Moon M.D. Authorized by: Ginny Moon M.D. Location: OR PROCEDURE DETAILS: Block Indication: post-op pain block Block indication comment: Post-Op pain block at request of surgeon Block Type - Truncal: pecto-intercostal fascial plane Positioning: supine Laterality: bilateral Block technique: ultrasound guided Ultrasound image guidance used to localize target, identify at risk structures, and dynamically usedto direct therapy to the target. Procedure was performed under sterile conditions.Image(s) acquired and saved Injection technique: single injection Needle type: tuohy Gauge: 24G Length: 10 Test dose: yes- negative test dose Incremental injection of local anesthetic with aspiration every:5cc Pain with needle advancement or injection of local anesthetic: no Injected Medications: Injection(s), anesthetic agent(s) and/or steroid; See [facility] UNIVERSAL PROTOCOL All relevant documentation and testing were reviewed and available. All required blood products, implants, devices and or special equipment were made available as applicable. Pre-procedure verificationwas conducted and the correct site was marked if required. A fire risk assessment was done as applicable. The procedural time-out to verify correct patient, correct side/site, and procedure was conducted prior to performing the procedure and confirmed in a procedural pause. PRE-PROCEDURE DETAILS: Appropriate hand hygiene, gown, cap, mask, protective eyewear, sterile gloves, skin preparation, sterile drape, and strict aseptic technique were utilized as applicable for the procedure.: yes Skin prep: chlorhexidine / alcohol SEDATION / ANESTHESIA Anesthesia method: local infiltration and anesthesia POST-PROCEDURE DETAILS: Procedure completed successfully: successful procedure Other complications: none ATTESTATION STATEMENT The teaching physician rule is not applicable. Anesthesia Procedure Notes - Ginny Moon M.D. - 12/03/2021 9:22 AM CDT Associated Order(s): Invasive Catheter Invasive Catheter Date/Time: 12/03/2021 8:54 AM Performed by: Ginny Moon M.D. Authorized by: Ginny Moon M.D. Location: OR PROCEDURE DETAILS: Line type: central venous Laterality: right Location: jugular internal Location details: new site Additional catheter (i.e. multiple lines in same vessel): no Patient position: Trendelenburg Age group: adult Line Type: temporary (non-tunneled, non-implanted) Introducer: yes Introducer size: 9 Fr Introducer insertion depth: 10 cm Catheter placed via introducer: clip in triple lumen Lumen(s): double lumen Catheter diameter: 7 Fr Site the catheter was advanced to (this is the intended location and does not need to be proven by radiologic exam): central venous circulation Technique: ultrasound guided Ultrasound guidance: image acquired and saved Ultrasound comment: ultrasound guidance used demonstrating vessel patency and cannulation of the vessel observed. Vessel transduced: yes Monitored (venous): yes Number of attempts: 1 UNIVERSAL PROTOCOL All relevant documentation and testing were reviewed and available. All required blood products, implants, devices and or special equipment were made available as applicable. Pre-procedure verificationwas conducted and the correct site was marked if required. A fire risk assessment was done as applicable. The procedural time-out to verify correct patient, correct side/site, and procedure was conducted prior to performing the procedure and confirmed in a procedural pause. PRE-PROCEDURE DETAILS: Appropriate hand hygiene, gown, cap, mask, protective eyewear, sterile gloves, skin preparation, sterile drape, and strict aseptic technique were utilized as applicable for the procedure.: yes Skin preparation: chlorhexidine SEDATION / ANESTHESIA Anesthesia method: none POST-PROCEDURE DETAILS: Procedure completed successfully: yes Line secured: sutured Chlorhexidine disc around insertion site and under catheter with slight turn: yes Complications: none ATTESTATION STATEMENT A resident or fellow participated in the procedure, and the distributor sales consultant was present for the entire procedure. Anesthesia Procedure Notes - Ginny Moon M.D. - 12/03/2021 9:22 AM CDT Associated Order(s): JODI JODI Date/Time: 12/03/2021 8:58 AM Performed by: Ginny Moon M.D. Authorized by: Ginny Moon M.D. Location: OR PROCEDURE DETAILS: Indications: monitor ventricular function Transesophageal type: placement of JODI probe only Complications: no complications and adult probe inserted without difficulty Anesthesia Procedure Notes - Karyn Weller APRN, CRNA - 12/03/2021 8:53 AM CDTAssociated Order(s): Airway Airway Date/Time: 12/03/2021 8:41 AM Performed by: Karyn Weller APRN, CRNA Authorized by: Ginny Moon M.D. Patient location during procedure: OR / Procedure Area PROCEDURE DETAILS: Mask difficulty assessment: easy mask Final airway type: video laryngoscope Laryngeal Manipulation: no Final best view of glottic structures - Cormack/Lehane Score: grade 2A ETT location: oral VL device: glide scope Elma scope blade size: 4 Adult tube size: 8 Adult ETT distance at teeth/gum: 24 Oral tube type: standard ETT Cuffed: yes Number of attempt to successful placement: 1 Airway confirmation: bilateral breath sounds, positive ETCO2 and bilateral chest rise Other previous techniques attempted: none PRE PROCEDURE DETAILS: Pre evaluation for airway management: procedure Urgency: elective Preop assessment of probable difficulty: questionable / suspicious difficult airway Preoxygenation: bag valve mask SEDATION / ANESTHESIA Anesthesia method: anesthesia POST PROCEDURE DETAILS: Procedure outcome: successful Airway event: no complications Anesthesia Procedure Notes - Karyn Weller APRN, CRNA - 12/03/2021 8:52 AM CDTAssociated Order(s): Invasive Catheter Invasive Catheter Date/Time: 12/03/2021 8:33 AM Performed by: Karyn Weller APRN, CRNA Authorized by: Ginny Moon M.D. Location: OR PROCEDURE DETAILS: Line type: arterial Laterality: left Location: radial Location details: new site Age group: adult Catheter diameter: 20 Ga Technique: ultrasound guided Ultrasound guidance: image not saved Monitored: yes Number of attempts: 2 UNIVERSAL PROTOCOL All relevant documentation and testing were reviewed and available. All required blood products, implants, devices and or special equipment were made available as applicable. Pre-procedure verificationwas conducted and the correct site was marked if required. A fire risk assessment was done as applicable. The procedural time-out to verify correct patient, correct side/site, and procedure was conducted prior to performing the procedure and confirmed in a procedural pause. PRE-PROCEDURE DETAILS: Appropriate hand hygiene, gown, cap, mask, protective eyewear, sterile gloves, skin preparation, sterile drape, and strict aseptic technique were utilized as applicable for the procedure.: yes Skin preparation: chlorhexidine SEDATION / ANESTHESIA Anesthesia method: local infiltration Local infiltrate type: lidocaine POST-PROCEDURE DETAILS: Procedure completed successfully: yes Line secured: secured with sutureless device Chlorhexidine disc around insertion site and under catheter with slight turn: yes Complications - arterial: hematoma Anesthesia Preprocedure Evaluation - Ginny Moon M.D. - 12/03/2021 7:32 AM CDT Preprocedure Anesthesia & H&P Assessment Procedure Summary Date/Time: 12/03/21 0800 Procedures: CORONARY ARTERY BYPASS GRAFT X1, INTERNAL MAMMARY ARTERY. (N/A Chest) CORONARY ARTERY BYPASS GRAFT, HARVEST RADIAL ARTERY. (Left ) CORONARY ARTERY BYPASS GRAFT X2, VEIN. (N/A Chest) Diagnosis: Coronary Artery Disease With Stable Angina (HCC) [I25.118] Preoperative Examination Cardiovascular [Z01.810] Pre-op diagnosis: Coronary Artery Disease, Stable Angina (HCC) [I25.118], Preoperative Examination Cardiovascular [Z01.810]. Location: [address] / [facility] [place] [facility] in [place], [place] Providers: Dario Wiggins M.D. Pertinent components of the patient's history including current problem list, medical history, surgical history, family history, social history, medications and allergies were reviewed. Present illnessand pre-op diagnosis were confirmed. The planned surgery / procedure was verified with the patient /legal guardian. The patient's general health condition remains unchanged RELEVANT COMORBID CONDITIONS CV (+) Atherosclerotic Heart Disease Of [place] Coronary Artery Without Angina Pectoris (+) Hypertension NOS RENAL/REPRO (+) Chronic Kidney Disease (CKD), Stage 3a Glomerular Filtration Rate (GFR) 45 To 59 (HCC) GENETICS (+) Hyperlipidemia On Treatment OBJECTIVE PHYSICAL EXAMINATION Airway (HEENT) Mallampati: III TM Distance: >3 FB Neck ROM: Full Mouth Opening: >3 cm Cardiovascular Rhythm: Regular Rate: Normal Cardiovascular Assessment: cardiovascular normal Functional Capacity: >4 METS Pulmonary Pulmonary Assessment: Clear General / Constitutional Constitutional Assessment: Normal General State of Health:: calm Neurological Neurologic Assessment:??alert and alert and oriented x 3 Dental Dental Assessment: dentition intact ASSESSMENT / PLAN ANESTHESIA PLAN ASA: 4 Anesthesia Plan: general Pleasant 76 yo M presenting for CABG 2/2 CAD. Known LAD stent in past. No significant valve disease,normal biventricular function. No issues with anesthesia. GETA - Elma Radial arterial line, CVC with clip JODI - denies esophageal issues NE/Epi in line No PERI R/B/A discussed about PIFB blocks. Patient consented yes Potential extubation if clinically appropriate Patient seen and allergies reviewed, anesthesia plan and risks discussed directly with patient /legal guardian or through an mineralogy professor. Risks/Benefits/Alternatives of Blood transfusion discussed with patient / legal guardian, including an opportunity to ask questions and/or decline some or all transfusion therapies. The patient / legalguardian consented to the use of all blood products, as deemed medically necessary Approval to Proceed: approved for anesthesia documented in this encounter Plan of Treatment Not on filedocumented as of this encounter Procedures Procedure Name Priority Date/Time Associated Comments Diagnosis ANE NERVE BLOCK Routine 12/03/2021 2:56 PM Res ults for this WITH ULTRASOUND CDT procedure ar e in the results section. [facility] US GUIDE PLC NDL Routine 12/03/2021 2:56 PM Re sults for this CDT procedure are i n the results section. [facility] ECHO JODI 2D PLC Routine 12/03/2021 8:58 AM Res ults for this ONLY CDT procedure are i n the results section. ANE CENTRAL LINE Routine 12/03/2021 8:54 AM Re sults for this GENERIC PERFORMABLE CDT procedur e are in the results section. [facility] ANE INTRODUCER Routine 12/03/2021 8:54 AM Res ults for this ONLY CDT procedure are i n the results section. ANE INVASIVE CATH Routine 12/03/2021 8:54 AM R esults for this WITH ULTRASOUND CDT procedure ar e in the results section. LDA ANE CENTRAL LINE Routine 12/03/2021 8:54 AM R esults for this TRIPLE LUMEN CDT procedure are i n the results section. [facility] US GUIDE VASC Routine 12/03/2021 8:54 AM Resul ts for this ACCESS CDT procedure are i n the results section. [facility] INS NON-SARAH CVC Routine 12/03/2021 8:54 AM Res ults for this >5YR CDT procedure are i n the results section. LDA ANE ENDOTRACHEAL Routine 12/03/2021 8:41 AM R esults for this AIRWAY CDT procedure are i n the results section. LDA ANE ARTERIAL LINE Routine 12/03/2021 8:33 AM Results for this INSERTION CDT procedure are i n the results section. [facility] ARTL CATH/CNULA Routine 12/03/2021 8:33 AM Res ults for this MONITOR PERC CDT procedure are i n the results section. documented in this encounter Results [facility] US GUIDE PLC NDL, [facility] ANE NERVE BLOCK WITH ULTRASOUND (12/03/2021 2:56 PM CDT) Karyn Rose APRN, CRNA - 12/03 2:56 PM CDT Karyn Weller APRN, CRNA ? 12/03/2021 ??2:56 PM Regional Block Date/Time: 12/03/2021 2:56 PM Performed by: Ginny Moon M.D. Authorized by: Ginny Moon M.D. Location: OR PROCEDURE DETAILS: Block Indication: post-op pain block ?? Block indication comment: Post-Op pain b lock at request of surgeon Block Type - Truncal: pecto-intercostal fascial plane ?? Positioning: supine ?? Laterality: bilateral Block technique: ultrasound guided ?? Ultrasound image guidance used to locali ze target, identify at risk structures, and dynamically used to dire ct therapy to the target. Procedure was performed under sterile co nditions.Image(s) acquired and saved Injection technique: single injection Needle type: tuohy Gauge: 24G Length: 10 Test dose: yes- negative test dose ?? Incremental injection of local anestheti c with aspiration every:5cc Pain with needle advancement or injectio n of local anesthetic: no ?? Injected Medications: Injection(s), anes thetic agent(s) and/or steroid; See [facility] UNIVERSAL PROTOCOL All relevant documentation and testing w ere reviewed and available. All required blood products, implants, devic es and or special equipment were made available as applicable. Pre-proced ure verification was conducted and the correct site was marked if required. A fire risk assessment was done as applicable. The procedural time-out t o verify correct patient, correct side/site, and procedure was conducted p rior to performing the procedure and confirmed in a procedural pause. PRE-PROCEDURE DETAILS: ?? Appropriate hand hygiene, gown, cap, mas k, protective eyewear, sterile gloves, skin preparation, sterile drape, and strict aseptic technique were utilized as applicable for the procedure .: yes ?? Skin prep: chlorhexidine / alcohol SEDATION / ANESTHESIA Anesthesia method: local infiltration an d anesthesia POST-PROCEDURE DETAILS: Procedure completed successfully: succes sful procedure Other complications: none ATTESTATION STATEMENT The teaching physician rule is not appli cable. Ginny Moon M.D. PROCEDURE/MINOR SURGICAL ORD ERABLES [facility] ECHO JODI 2D PLC ONLY (12/03/2021 8:58 AM CDT) Ginny Shabazz M.D. - 12/03/2021 8:58 AM CDT Ginny Moon M.D. ? 12/03/2021 ??9:22 AM JODI Date/Time: 12/03/2021 8:58 AM Performed by: Ginny Moon M.D. Authorized by: Ginny Moon M.D. Location: OR PROCEDURE DETAILS: Indications: monitor ventricular functio n Transesophageal type: placement of JODI p robe only Complications: no complications and adul t probe inserted without difficulty Ginny Moon M.D. ANESTHESIA ORDERABLES [facility] INS NON-SARAH CVC >5YR, [facility] US GUIDE VASC ACCESS, LDA ANE CENTRAL LINE TRIPLE LUMEN, MC ANE INVASIVE CATH WITH ULTRASOUND, LDA ANE INTRODUCER ONLY, MC ANE CENTRAL LINE GENERIC PERFORMABLE (12/03/2021 8:54 AM CDT) Ginny Shabazz M.D. - 12/03/2021 8:54 AM CDT Ginny Moon M.D. ? 12/03/2021 ??9:23 AM Invasive Catheter Date/Time: 12/03/2021 8:54 AM Performed by: Ginny Moon M.D. Authorized by: Ginny Moon M.D. Location: OR PROCEDURE DETAILS: Line type: central venous ?? Laterality: right Location: jugular internal Location details: new site ?? Additional catheter (i.e. multiple lines in same vessel): no ?? Patient position: Trendelenburg ?? Age group: adult Line Type: temporary (non-tunneled, non- implanted) Introducer: yes ?? Introducer size: 9 Fr Introducer insertion depth: 10 cm Catheter placed via introducer: clip in triple lumen ?? Lumen(s): double lumen Catheter diameter: 7 Fr Site the catheter was advanced to (this is the intended location and does not need to be proven by radiologic exam ): central venous circulation ?? Technique: ultrasound guided ?? Ultrasound guidance: image acquired and saved Ultrasound comment: ultrasound guidance used demonstrating vessel patency and cannulation of the vessel observed. Vessel transduced: yes ?? Monitored (venous): yes Number of attempts: 1 UNIVERSAL PROTOCOL All relevant documentation and testing w ere reviewed and available. All required blood products, implants, devic es and or special equipment were made available as applicable. Pre-proced ure verification was conducted and the correct site was marked if required. A fire risk assessment was done as applicable. The procedural time-out t o verify correct patient, correct side/site, and procedure was conducted p rior to performing the procedure and confirmed in a procedural pause. PRE-PROCEDURE DETAILS: Appropriate hand hygiene, gown, cap, mas k, protective eyewear, sterile gloves, skin preparation, sterile drape, and strict aseptic technique were utilized as applicable for the procedure .: yes ?? Skin preparation: chlorhexidine ?? SEDATION / ANESTHESIA Anesthesia method: none POST-PROCEDURE DETAILS: Procedure completed successfully: yes ?? Line secured: sutured Chlorhexidine disc around insertion site and under catheter with slight turn: yes ?? Complications: none ?? ATTESTATION STATEMENT A resident or fellow participated in the procedure, and the distributor sales consultant was present for the entire procedure. Ginny Moon M.D. PROCEDURE/MINOR SURGICAL ORD ERABLES LDA ANE ENDOTRACHEAL AIRWAY (12/03/2021 8:41 AM CDT) Narrative Karyn Weller APRN, CRNA - 12/03 8:41 AM CDT Karyn Weller APRN, CRNA ? 12/03/2021 ??8:54 AM Airway Date/Time: 12/03/2021 8:41 AM Performed by: Karyn Weller APRN, CRNA Authorized by: Ginny Moon M.D. Patient location during procedure: OR / Procedure Area PROCEDURE DETAILS: Mask difficulty assessment: easy mask Final airway type: video laryngoscope Laryngeal Manipulation: no ?? Final best view of glottic structures - Cormack/Lehane Score: grade 2A ETT location: oral VL device: glide scope Elma scope blade size: 4 Adult tube size: 8 Adult ETT distance at teeth/gum: 24 Oral tube type: standard ETT Cuffed: yes Number of attempt to successful placemen t: 1 Airway confirmation: bilateral breath so unds, positive ETCO2 and bilateral chest rise Other previous techniques attempted: non e PRE PROCEDURE DETAILS: Pre evaluation for airway management: pr ocedure Urgency: elective Preop assessment of probable difficulty: questionable / suspicious difficult airway Preoxygenation: bag valve mask SEDATION / ANESTHESIA Anesthesia method: anesthesia POST PROCEDURE DETAILS: ? Procedure outcome: successful ?? Airway event: no complications Ginny Moon M.D. ANESTHESIA ORDERABLES [facility] ARTL CATH/CNULA MONITOR PERC, LDA ANE ARTERIAL LINE INSERTION (12/03/2021 8:33 AM CDT) Narrative Karyn Weller APRN, CRNA - 12/03 8:33 AM CDT Karyn Weller APRN, CRNA ? 12/03/2021 ??8:53 AM Invasive Catheter Date/Time: 12/03/2021 8:33 AM Performed by: Karyn Weller APRN, CRNA Authorized by: Ginny Moon M.D. Location: OR PROCEDURE DETAILS: Line type: arterial ?? Laterality: left Location: radial Location details: new site ? Age group: adult Catheter diameter: 20 Ga Technique: ultrasound guided ?? Ultrasound guidance: image not saved Monitored: yes ?? Number of attempts: 2 UNIVERSAL PROTOCOL All relevant documentation and testing w ere reviewed and available. All required blood products, implants, devic es and or special equipment were made available as applicable. Pre-proced ure verification was conducted and the correct site was marked if required. A fire risk assessment was done as applicable. The procedural time-out t o verify correct patient, correct side/site, and procedure was conducted p rior to performing the procedure and confirmed in a procedural pause. PRE-PROCEDURE DETAILS: Appropriate hand hygiene, gown, cap, mas k, protective eyewear, sterile gloves, skin preparation, sterile drape, and strict aseptic technique were utilized as applicable for the procedure .: yes ?? Skin preparation: chlorhexidine ?? SEDATION / ANESTHESIA Anesthesia method: local infiltration Local infiltrate type: lidocaine POST-PROCEDURE DETAILS: Procedure completed successfully: yes ?? Line secured: secured with sutureless de vice Chlorhexidine disc around insertion site and under catheter with slight turn: yes ?? Complications - arterial: hematoma Ginny Moon M.D. PROCEDURE/MINOR SURGICAL ORD ERABLES documented in this encounter Visit Diagnoses Not on filedocumented in this encounter Administered Medications Inactive Administered Medications - up to 3 most recent administrations Medication Order MAR Action Action Date Dose Rate Site acetaminophen injection Given 12/03/2021 2:16 PM CDT 1,000 mg intravenous, Administer over 15 Minutes, As needed, Starting on Thu12/03/21 at 1416, Anesthesia Intra-op amiodarone 1.8 mg/mL in Rate/Dose Verify 12/03/2021 [...] PM CDT 1 mg/min 33.3 mL/hr amiodarone injection (CORDARONE) Given 12/03/2021 1:06 PM CDT 150 mg intravenous, As needed, Starting on Thu12/03/21 at 1306, Anesthesia Intra-op bupivacaine liposome (PF) 266 mg/20 mL (13.3 Given 2:55 PM CDT 20 mL mg/mL) injection (EXPAREL) infiltration, As needed, Starting on Thu12/03/21 at 1455, Anesthesia Intra-op bupivacaine PF 0.25 % (2.5 mg/mL) injection Given 12/03/2021 2:5 5 PM CDT 20 mL (MARCAINE) intrathecal, As needed, Starting on Thu12/03/21 at 1455, Anesthesia Intra-op caffeine-sodium benzoate injection Given 12/03/2021 3:19 PM CDT 125 mg intravenous, As needed, Starting on Thu12/03/21 at 1519, Anesthesia Intra-op calcium chloride injection Given 12/03/2021 2:41 PM CDT 500 mg intravenous, As needed, Starting on Thu12/03/21 at 1020, Anesthesia Intra-op Given 12/03/2021 12:58 PM CDT 500 mg Given 12/03/2021 12:45 PM CDT 500 mg ceFAZolin injection 2,000 mg (ANCEF) Given 12/03/2021 1:00 PM CDT 2 g 2,000 mg (rounded from 2,335 mg = 25 mg/ kg ? 93.4 kg), intravenous, Once, On Thu12/03/21 at 0715, For 1 dose, Intra-Op, Preoperatively within 1 hour prior to surgical incision If needed, reconstitute vial per package insert instructions. See IVAG for administration guidelines. , Drug Monitoring Program: Pharmacist to adjust medication dosing based on indication and drug clearance factors., Indications: Prophylaxis, surgical Given 12/03/2021 9:52 AM CDT 2 g clevidipine 0.5 mg/mL bolus (CLEVIPREX) Given 12/03/2021 10:03 AM CDT 0.125 mg intravenous, As needed, Starting on Thu12/03/21 at 1003, Anesthesia Intra-op [place] Cardioplegia 1,000 mL (premix) Given 12/03/2021 12:11 PM CDT 1,000 mL perfusion, As needed, Starting on Thu12/03/21 at 0752, Anesthesia Intra-op Given 12/03/2021 7:52 AM CDT 2,000 mL dexAMETHasone injection (DECADRON) Given 12/03/2021 9:04 AM CDT 8 mg intravenous, As needed, Starting on Thu12/03/21 at 0904, Anesthesia Intra-op electrolyte-A solution (PLASMA-LYTE A) New Bag 12/03/2021 2:42 PM CDT intravenous, Continuous Infusion: Per Instructions PRN, Starting on Thu12/03/21 at 0831, Anesthesia Intra-op New Bag 12/03/2021 11:06 AM CDT New Bag 12/03/2021 8:31 AM CDT electrolyte-A solution (PLASMA-LYTE A) New Bag 12/03/2021 11:09 AM CDT intravenous, Continuous Infusion: Per Instructions PRN, Starting on Thu12/03/21 at 0924, Anesthesia Intra-op New Bag 12/03/2021 9:24 AM CDT ePHEDrine (PF) injection Given 12/03/2021 12:51 PM CDT 10 mg intravenous, As needed, Starting on Thu12/03/21 at 0901, Anesthesia Intra-op Given 12/03/2021 9:27 AM CDT 5 mg Given 12/03/2021 9:03 AM CDT 5 mg EPINEPHrine 16 mcg/mL in Rate/Dose 12/03/2021 3:20 [...] PM CDT 0.02 mcg/kg/min 6.915 mL/hr EPINEPHrine injection (ADRENALIN) Given 12/03/2021 1:04 PM CDT 10 mcg intravenous, As needed, Starting on Thu12/03/21 at 1303, Anesthesia Intra-op Given 12/03/2021 1:03 PM CDT 10 mcg fentaNYL injection (SUBLIMAZE) Given 12/03/2021 9:52 AM CDT 25 mcg intravenous, As needed, Starting on Thu12/03/21 at 0817, Anesthesia Intra-op Given 12/03/2021 8:31 AM CDT 25 mcg Given 12/03/2021 8:17 AM CDT 50 mcg glycopyrrolate injection (ROBINUL) Given 12/03/2021 10:01 AM CDT 0.2 mg intravenous, As needed, Starting on Thu12/03/21 at 1001, Anesthesia Intra-op Given 12/03/2021 9:59 AM CDT 0.2 mg granisetron (PF) injection (KYTRIL) Given 12/03/2021 2:01 PM CDT 1 mg intravenous, As needed, Starting on Thu12/03/21 at 1401, Anesthesia Intra-op haloperidol lactate injection (HALDOL) Given 12/03/2021 1:44 PM CDT 1 mg intravenous, As needed, Starting on Thu12/03/21 at 1344, Anesthesia Intra-op heparin (porcine) 1,000 unit/mL Given 12/03/2021 10:43 AM CDT 37 ,000 Units injection intravenous, As needed, Starting on Thu12/03/21 at 1043, Anesthesia Intra-op heparin (porcine) 1,000 unit/mL Given 12/03/2021 12:28 PM CDT 10 ,000 Units injection intravenous, As needed, Starting on Thu12/03/21 at 1136, Anesthesia Intra-op Given 12/03/2021 12:02 PM CDT 5,000 Units Given 12/03/2021 11:36 AM CDT 5,000 Units insulin regular 1 Rate/Dose Verify 12/04/2021 2:00 [...] 12:56 AM CDT 0 Units/hr 0 mL/hr magnesium sulfate injection Given 12/03/2021 1:10 PM CDT 2 g intravenous, As needed, Starting on Thu12/03/21 at 1310, Anesthesia Intra-op methadone injection 28.1 mg (DOLOPHINE) Given 12/03/2021 10:01 AM CDT 10 mg 28.1 mg (rounded from 28.14 mg = 0.3 mg/ kg ? 93.8 kg), intravenous, Once, On Thu12/03/21 at 0715, For 1 dose, Intra-Op, In OR, Restriction Criteria (Pharmacy will review and approve if criteria met): Prescribed by Pain Service Given 12/03/2021 10:00 AM CDT 10 mg Given 12/03/2021 9:50 AM CDT 5 mg midazolam (PF) injection (VERSED) Given 12/03/2021 8:19 AM CDT 0.5 mg intravenous, As needed, Starting on Thu12/03/21 at 0817, Anesthesia Intra-op Given 12/03/2021 8:17 AM CDT 0.5 mg mupirocin 2 % nasal ointment Given 12/03/2021 9:04 AM CDT 1 appl ication (BACTROBAN) each nostril, As needed, Starting on Thu12/03/21 at 0904, Anesthesia Intra-op norepinephrine 16 Rate/Dose Change 12/03/2021 11:44 0.02 mcg/kg/min 7 .035 mL/hr mcg/mL in D5W 250 mL AM CDT infusion 0-0.3 mcg/kg/min ? 93.8 kg (0-105.525 mL/hr, rounded to 0-105.53 mL/hr), intravenous, Continuous, Starting on Thu12/03/21 at 0715, Intra-Op, In OR Protect from light and avoid extravasation, Patient Type: Cardiovascular Surgery, Initiate at: Other, Rate: Per Provider, Titrate at: Other, Titrate: Per Provider, Goal: Other, Goal: Per Provider Rate/Dose Change 12/03/2021 11:40 AM CDT 0.05 mcg/kg/min 17.588 mL/ hr Restarted 12/03/2021 11:33 AM CDT 0.03 mcg/kg/min 10.553 mL/hr norepinephrine 16 Rate/Dose Change 12/03/2021 3:25 [...] 3:03 PM CDT 0.04 mcg/kg/min 13.83 mL/hr perfusion prime builder New Bag 12/03/2021 7:23 AM CDT 1,050 mL perfusion, Continuous Infusion: Per Instructions PRN, Starting on Thu12/03/21 at 0723, Anesthesia Intra-op phenylephrine 80 mcg/mL in Restarted 12/03/2021 11:58 0.2 mcg/kg /min 13.83 mL/hr NaCl 0.9% 250 mL infusion AM CDT intravenous, Continuous Infusion: Per Instructions PRN, Starting on Thu12/03/21 at 1117, Anesthesia Intra-op Restarted 12/03/2021 11:52 AM CDT 0.5 mcg/kg/min 34.575 mL/hr Rate/Dose Change 12/03/2021 11:33 AM CDT 0.5 mcg/kg/min 34.575 mL/h r phenylephrine injection Given 12/03/2021 2:09 PM CDT 100 mcg intravenous, As needed, Starting on Thu12/03/21 at 0903, Anesthesia Intra-op Given 12/03/2021 1:29 PM CDT 300 mcg Given 12/03/2021 12:59 PM CDT 200 mcg phenylephrine injection Given 12/03/2021 11:41 AM CDT 300 mcg intravenous, As needed, Starting on Thu12/03/21 at 1115, Anesthesia Intra-op Given 12/03/2021 11:34 AM CDT 200 mcg Given 12/03/2021 11:33 AM CDT 200 mcg potassium chloride IVPB Given 12/03/2021 2:42 PM CDT 10 mEq intravenous, Administer over 60 Minutes, As needed, Starting on Thu12/03/21 at 1442, Anesthesia Intra-op propofol 10 mg/mL infusion New Bag 12/03/2021 2:12 25 mcg/kg/min 1 3.83 mL/hr (DIPRIVAN) PM CDT intravenous, Continuous Infusion: Per Instructions PRN, Starting on Thu12/03/21 at 1412, Anesthesia Intra-op propofoL injection (DIPRIVAN) Given 12/03/2021 8:39 AM CDT 20 mg intravenous, As needed, Starting on Thu12/03/21 at 0837, Anesthesia Intra-op Given 12/03/2021 8:37 AM CDT 50 mg protamine injection Given 12/03/2021 1:45 PM CDT 20 mg intravenous, As needed, Starting on Thu12/03/21 at 1336, Anesthesia Intra-op Given 12/03/2021 1:36 PM CDT 370 mg rocuronium injection (ZEMURON) Given 12/03/2021 8:36 AM CDT 100 mg intravenous, As needed, Starting on Thu12/03/21 at 0836, Anesthesia Intra-op sodium bicarbonate injection Given 12/03/2021 1:18 PM CDT 25 mEq intravenous, As needed, Starting on Thu12/03/21 at 1244, Anesthesia Intra-op Given 12/03/2021 12:44 PM CDT 25 mEq sodium bicarbonate injection Given 12/03/2021 2:15 PM CDT 50 mEq intravenous, As needed, Starting on Thu12/03/21 at 1409, Anesthesia Intra-op Given 12/03/2021 2:09 PM CDT 50 mEq sugammadex injection (BRIDION) Given 12/03/2021 3:19 PM CDT 200 mg intravenous, As needed, Starting on Thu12/03/21 at 1519, Anesthesia Intra-op tranexamic acid 8 mg/mL Rate/Dose Verify 12/03/2021 5:00 PM 2 mg/kg /hr 23.05 mL/hr in NaCl 0.9% 250 mL CDT infusion (CYKLOKAPRON) 2 mg/kg/hr ? 92.2 kg Dosing weight (23.05 mL/hr, rounded to 23.1 mL/hr), intravenous, Continuous, Starting on Thu12/03/21 at 1115 Rate/Dose Verify 12/03/2021 4:00 PM CDT 2 mg/kg/hr 23.05 mL/hr Rate/Dose Verify 12/03/2021 3:20 PM CDT 2 mg/kg/hr 23.05 mL/hr tranexamic acid 950 mg in NaCl 0.9% IVPB New Bag 12/03/2021 10:43 AM CDT 950 mg 950 mg (rounded from 938 mg = 10 mg/kg ? 93.8 kg), intravenous, at 179 mL/hr, Administer over 20 Minutes, Once, On Thu12/03/21 at 0715, For 1 dose, Intra-Op tranexamic acid pump prime 40 mg Given 12/03/2021 11:15 AM CDT 4 0 mg (CYKLOKAPRON) 40 mg, miscellaneous, Once, On Thu12/03/21 at 0715, For 1 dose, Intra-Op, Pump Prime (Syringe); pharmacy sent to OR Transfuse autologous RBC (Cell Salvage) : New Bag 12/03/2021 2:06 PM CDT Routine Transfuse autologous RBC (Cell Salvage) : New Bag 12/03/2021 2:31 PM CDT Routine vasopressin injection (PITRESSIN) Given 12/03/2021 1:08 PM CDT 1 Units intravenous, As needed, Starting on Thu12/03/21 at 1143, Anesthesia Intra-op Given 12/03/2021 1:07 PM CDT 1 Units Given 12/03/2021 12:41 PM CDT 1 Units vasopressin injection (PITRESSIN) Given 12/03/2021 2:49 PM CDT 1 Units intravenous, As needed, Starting on Thu12/03/21 at 1301, Anesthesia Intra-op Given 12/03/2021 2:13 PM CDT 1 Units Given 12/03/2021 1:30 PM CDT 1 Units vecuronium injection (NORCURON) Given 12/03/2021 12:52 PM CDT 2 mg intravenous, As needed, Starting on Thu12/03/21 at 0953, Anesthesia Intra-op Given 12/03/2021 9:53 AM CDT 5 mg documented in this encounter Additional Health Concerns Assessment Noted Time PHQ-9 Depression Total Score: 10 11/27/2021 1:28 PM CD T documented as of this encounter
--- OUTSIDE RECORDS SUMMARY | 2022-05-16 12:20 | XMS_ITS | Encounter Summary ---
:1945 Author Organization [facility] Address [address] [place] [address] Care Team Providers Name Role Phone Unavailable Primary Care Provider Unavailable Encounter Details Date Type Department Care Team Description 12/02/2021 Office Visit Department of Aida Gonzalez rtery Disease With Stable Angina (HCC) (Primary Dx); [facility] Hypertension Essential Primary; in [facility] [address] [facility] Chronic Kidney Disease (CKD), Stage 3a G lomerular Filtration Rate (GFR) 45 To 59 (HCC); [address] [place], [place] Hyperlipidemia On Treatment; [place] [address] Preoperative Examination Cardiovascular; [address] Fatigue; Lightheadedness; [phone] Nodule Prostate (Fax) Social History Tobacco Use Types Packs/Day Years Used Date Smoking Tobacco: Former Smokeless Tobacco: Never Alcohol Use Standard Drinks/Week Comments Yes 5 (1 standard drink = 0.6 oz pure alcoho l) Alcohol Habits Answer Date Recorded How often [...] or relatives? How often do you attend orthodox or samaritan 1 to 4 times per year 11/08/2021 services? Do you belong to any clubs or organizations Yes 11/08/2021 such as orthodox groups, unions, fraternal or athletic groups, or [...] Sign Reading Time Taken Comments Blood Pressure 158/77 12/02/2021 3:41 PM CDT Pulse 49 12/02/2021 3:41 PM CDT Temperature 36.3 ??C (97.3 ??F) 12/02/2021 3:41 PM CDT Respiratory Rate - - Oxygen Saturation 97% 12/02/2021 3:41 PM CDT Inhaled Oxygen Concentration - - Weight 92.9 kg (204 lb 12.9 oz) 12/02/2021 3:41 PM CDT Height 182.9 cm (6' 0.01) 12/02/2021 3:41 PM CDT Body Mass Index 27.77 12/02/2021 3:41 PM CDT documented in this encounter H&P Notes Aida Gonzalez, P.A. - 12/02/2021 1:15 PM CDT Angel Doran : 1945 Visit Date: 12/02/21 REFERRING PHYSICIAN: No ref. provider found Home doll repairer: Renee Drummond MD Home primary care provider: Subhash Arenas MD [facility] SUBJECTIVE CHIEF COMPLAINT / REASON FOR CONSULT Preoperative evaluation and education. HISTORY OF PRESENT ILLNESS Angel Doran is a 76 y.o. male who presents for a visit today prior to scheduled surgery. Mr. Doran has a cardiac history significant for triple- vessel coronary artery disease. He underwent staged stenting of the mid LAD in 2005. He has recurrent angina with exertion and occasionally at rest as well as fatigue. He can do push-ups, sit-ups and play golf without symptoms, but has chest pain if he walks up a flight of steps or walks at a fast pace. Denies symptoms of orthopnea, PND, palpitations, irregular heart rhythm, edema, dizziness, and syncope. His coronary angiogram reveals 80% obstruction mid LAD due to in-stent stenosis, 80% obstruction ramus intermedius, 70% obstruction of small OM 1, 70% obstruction distal right coronary artery and an ejection fraction of 65%. Other medical comorbidities include: Chronic kidney disease-stage III A, hyperlipidemia, hypertension Patient Active diagnoses Diagnosis ? Hypertension NOS ??? Coronary Artery Disease With Stable Angina (HCC) ??? Hyperlipidemia On Treatment ??? Rhinitis Chronic ??? Polyp Colon ??? Nodule Prostate ??? Ischemic Heart Chronic Disease ??? Preoperative Examination Cardiovascular ??? Lightheadedness ??? Other Chest Pain ??? Fatigue ??? Chronic Kidney Disease (CKD), Stage 3a Glomerular Filtration Rate (GFR) 45 To 59 (HCC) No past medical history on file. Past Surgical History: Procedure Laterality Date ??? CATH ANGIOGRAM N/A 11/11/2021 Procedure: Coronary Angiography; Surgeon: Von Crawford M.D.; Location: [facility] ??? CORONARY ANGIOPLASTY WITH STENT PLACEMENT N/A 10/02/2005 >Percutaneous transluminal coronary angioplasty of the mid LAD, placement of a Cypher drug-eluting stent in Social History Accompanied by his and daughter to this appointment. His daughter is an director life sciences. 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 He golfs 3-4 times a week. Tobacco Use ??? Smoking status: Former Smoker ??? Smokeless tobacco: Never Used Substance Use Topics ??? Alcohol use: Yes Alcohol/week: 2-3 standard drinks 2-3 times a week ALLERGIES / CONTRAINDICATION No Known Allergies CURRENT MEDICATIONS Current Medications: ??? amLODIPine (NORVASC) 5 mg tablet, Take 1 tablet (5 mg total) by mouth daily. ??? aspirin 81 mg chewable tablet, Chew 81 mg daily. ??? atorvastatin (LIPITOR) 40 mg tablet, Take 1 tablet by mouth daily. ??? ezetimibe (ZETIA) 10 mg tablet, Take 1 tablet (10 mg total) by mouth daily. ??? metoprolol succinate (TOPROL-XL) 25 mg 24 hr tablet, Take 1 tablet by mouth daily. ??? tamsulosin (FLOMAX) 0.4 mg 24 hr capsule, Take 1 capsule by mouth daily. ??? aspirin 81 mg chewable tablet, Chew 4 tablets (324 mg total) once for 1 dose. Take morning of procedure. (Patient taking differently: Chew 81 mg once. Take morning of procedure.) ??? cholecalciferol (VITAMIN D3) 50 mcg (2,000 Unit) tablet, Take 1 tablet by mouth daily. ??? losartan (COZAAR) 100 mg tablet, Take 1 tablet by mouth daily. ??? mupirocin (BACTROBAN) 2 % ointment, Apply 1 application topically 2 (two) times a day. Place pea-sized amount in each nostril night before and morning of surgery. ??? nitroglycerin (NITROSTAT) 0.4 mg SL tablet, Place 1-2 tablets (0.4-0.8 mg total) under the tongue every 5 (five) minutes as needed for chest pain. Place 1 tab under tongue at first sign of angina. Repeat in 5 min until relief. Max 3 tab/15 min ??? sildenafil (REVATIO) 20 mg tablet, Take 1-5 tablets by mouth as directed. Take 1-5 pills one hour before sexual intercourse on an empty stomach. Do not take Nitorglycerin after taking this drug ??? traMADol (ULTRAM) 50 mg tablet, Take 1 tablet by mouth as needed. Unknown REVIEW OF SYSTEMS Negative for seizure, stroke, diabetes, thyroid issues, asthma or other lung problems, sleep apnea, history of blood clotting or bleeding disorders, swallowing problems or history of esophageal stricture, history of stomach ulcer or bleed, bowel concerns, liver issues, muscle or joint problems. No reported skin alterations or recent weight changes . The patient has not had previous difficulties with anesthesia. No steroids or blood transfusions within the last three months. No unaddressed pain or mental health concerns. Positive for: chronic back pain for which he does exercises daily and takes an occasional dose of tramadol. He is most comfortable on his sides rather than on his back. He is right hand dominant. OBJECTIVE VITAL SIGNS PHYSICAL EXAMINATION General: Alert and oriented. No acute distress. Cardiovascular: Regular rate and rhythm, no murmur. Respiratory: Lungs are clear to auscultation bilaterally. Extremities: Warm. Pulses full and equal bilaterally. No edema bilaterally. DIAGNOSTICS I have reviewed the patient's current laboratory results, chest x-ray, EKG, and echocardiogram. Radial ultrasound 11/28/2021 Ultrasound carotid 11/28/2021 Ultrasound vein mapping 11/28/2021 Coronary angiogram 11/11/2021 Nuclear medicine cardiac perfusion scan 11/05/2021 Echocardiogram 11/04/2021 Chest x-ray 12/02/2021 ECG 12/02/2021 Labs: Lab Results Component Value Date WBC 5.1 12/02/2021 RBC 4.72 12/02/2021 HGB 14.5 12/02/2021 HCT 42.7 12/02/2021 PLT 247 12/02/2021 MCV 90.5 12/02/2021 RDW 13.2 12/02/2021 Lab Results Component Value Date NA 139 12/02/2021 KSERUM 4.5 12/02/2021 CL 105 12/02/2021 BUN 27 (H) 12/02/2021 CREATININE 1.48 (H) 12/02/2021 EGFRNONBLKAA 45 (L) 12/02/2021 Lab Results Component Value Date INR 1.1 12/02/2021 ASSESSMENT / PLAN #1 Coronary Artery Disease With Stable Angina (HCC) #2 Hypertension Essential Primary #3 Chronic Kidney Disease (CKD), Stage 3a Glomerular Filtration Rate (GFR) 45 To 59 (HCC) #4 Hyperlipidemia On Treatment #5 Preoperative Examination Cardiovascular #6 Fatigue #7 Lightheadedness #8 Nodule Prostate Mr. Doran is scheduled for coronary artery bypass grafting with Dr. Wiggins on 12/03/2021. Case listing was updated . Intraoperative orders were placed . Over the counter vitamins and supplements were discontinued one week ago. Last dose of aspirin was today . Other medications that are being held for surgery: Losartan The patient has been instructed to hold all medications on the morning of surgery. Metoprolol 6.25 mg is scheduled to be given to the patient in the preoperative area prior to surgery. For anesthesia: Nothing specific. For postoperative care: nothing specific. Caprini Total Score: 8 The patient is at high risk for postoperative DVT or PE. Mechanical prophylaxis recommended at the time of procedure AND mechanical and chemoprophylaxis are recommended during postoperative hospitalization, unless there are contraindications. Patient was screened for any COVID-19 related symptoms and denies any new symptoms. COVID-19 swab was negative. PATIENT EDUCATION Patient is ready to learn, no apparent learning barriers were identified; learning preferences include listening and visual aids. I/nursing have reviewed the preoperative instructions in detail. Postoperative course and recovery were discussed. All questions answered. The following were provided and reviewed: Checklist for Surgical Patients ( 3596) pamphlet; Your guide to Cardiac Surgery [id number]; Surgical Site Infection: Reducing Your Risk ( 6471); CentralVenous Catheter Infection: Reducing Your Risk (UC0754). Patient instructed to report to [facility] for Bactroban prescription. Application instructions provided. Preoperative diet and medication instructions given. Instructed to report to admissions desk for hospital pre-admissions. Patient verbalized understanding of instructions and all questions were answered. CONSENT The risks, benefits, and alternatives to the planned procedure were discussed in detail, including the risk of exposure to COVID-19 within the facility. All questions pertaining to the procedure and these risks were answered and the patient agreed to proceed. Informed consent was reviewed in detail and signed by the patient. Thank you for the opportunity to participate in the care of this patient. I personally spent 45 minutes in care of the patient today. Time includes both non face to face and face to face patient care. Alexandria Patricia documented in this encounter Plan of Treatment Not on filedocumented as of this encounter Visit Diagnoses Diagnosis Coronary Artery Disease With Stable [place] na (HCC) - Primary Hypertension Essential Primary Chronic Kidney Disease (CKD), Stage 3a G lomerular Filtration Rate (GFR) 45 To 59 (HCC) Hyperlipidemia On Treatment Preoperative Examination Cardiovascular Fatigue Lightheadedness Nodule Prostate documented in this encounter Additional Health Concerns Infection Onset Date Last Indicated Resolved Time COVID19 Pending 12/02/2021 12/02/2021 12/02/2021 1:31 PM CDT Assessment Noted Time PHQ-9 Depression Total Score: 10 11/27/2021 1:28 PM CD T documented as of this encounter
--- OUTSIDE RECORDS SUMMARY | 2022-05-16 12:20 | XMS_ITS | Encounter Summary ---
:1945 Author Organization [facility] Address [address] [place] [address] Care Team Providers Name Role Phone Unavailable Primary Care Provider Unavailable Encounter Details Date Type Department Care Team Description 12/03/2021 Surgery [facility]ST [facility] MAIN OR Dario Wiggins, CORONARY ARTERY BYPASS [address] M[address]D. GRAFT X1, [place] [address] [address] [facility] MAMMARY ARTERY. [phone] [place] [address] Social History Tobacco Use Types Packs/Day Years [...] How often do you attend orthodox or shinto 1 to 4 times per year 11/08/2021 [...] Sign Reading Time Taken Comments Blood Pressure 153/80 12/03/2021 7:07 AM CDT Pulse 52 12/03/2021 7:07 AM CDT Temperature 36.8 ??C (98.2 ??F) 12/03/2021 7:07 AM CDT Respiratory Rate 16 12/03/2021 7:07 AM CDT Oxygen Saturation 96% 12/03/2021 7:07 AM CDT Inhaled Oxygen Concentration - - Weight 92.2 kg (203 lb 4.2 oz) 12/03/2021 7:07 AM CDT Height 182.9 cm (6') 12/03/2021 [...] 12/08/2021 PRINCIPAL DIAGNOSIS Atherosclerotic Heart Disease Of [place] Coronary Artery Without Angina Pectoris SECONDARY DISCHARGE DIAGNOSES Principal Problem: Atherosclerotic Heart Disease [place] Coronary Artery Without Angina Pectoris Active Problems: Hypertension NOS 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 CVD office will call patient with appt due to patient waitlisted, provider full for the next 12 weeks. Follow-up Testing: Post-operative testing per the discretion of the PCP or Human Machine Interface Engineer. Blood Pressure: Metoprolol was initiated and titrated up to 37.5 mg twice daily prior to dismissal. Amlodipine was initiated and titrated up to 10 mg prior to dismissal. [place] [employer] Guidelines for individuals with coronary [...] atrial fibrillation or per recommendations by the Human Machine Interface Engineer. Antiplatelet Therapy: Aspirin 81 mg daily recommended [...] assess surgical incision sites for healing. Contact [facility] Cardiovascular Surgery [phone] with any concerns. Anticoagulation: No anticoagulation required [...] the cardiac rehab program. Patient referred to: [facility] [address] [place] [address] Recommend that the patient check with insurance company to verify coverage of the cost of cardiac rehabilitation program visits. COVID-19: Due to the current COVID-19 pandemic, the patient was instructed to monitor for any new fever, cough, shortness of breath, sore throat, diarrhea, respiratory distress, or chills or muscle aches. They are to contact [facility] COVID-19 nurse line ([phone]) with any concerns. Reviewed the best measures [...] covers your nose and mouth OUTPATIENT FOLLOWUP [facility] Appointments: Scheduled Appointments 12/16/2021 10:30 AM [facility] T2-02 [facility] Cardiovascular Surgery For appointment details refer to your Patient Appointment Guide. Outside [facility] Appointments: Consults and Follow-ups to Schedule Take a copy of this after visit summary to your appointment(s). [place], [place] December 13, 2021 - Thursday --10:15 AM - Hospital Follow-Up with Dr. Xander Sanchez, in absence of Dr. Arenas (primary care provider), at [facility] You may have outpatient appointments at [facility] that changed during your hospitalization. Refer to your [facility] Patient Visit Guide (PVG) for the most current schedule of appointments and detailed instructions of tests/procedures. Call [phone], if you did not receive an PVG or need to CANCEL any [facility] appointment(s). * Unfortunately Dr. Drummond's ([facility] riveter pneumatic) calendar is full for the next 12 weeks; however, you have been added to the waitlist, and their office will contact you as soon as there is an available opening for a recommended 1 to 3 month post cardiac surgery follow-up visit. Thank you! Contact information for after-discharge care Durable Medical Equipment [place] [address] 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 Primary Lance Hearn M.D. Sander And Polisher Dismissal Vitals: Admission Weight: 92.2 kg Blood [...] variant Cannot rule out Inferior infarct slight WA depression ST elevation in Anterolateral leads (concave) [...] submitted entirely in cassette A1. Grossed by MBAkash. Interpetation FINAL DIAGNOSIS A. Right nasal ala, Skin shave biopsy: Basal cell carcinoma, involving biopsy border CONDITION AT DISCHARGE stable Time spent on coordinating discharge was greater than 30 minutes. Discharge instructions were provided to the patient and caregiver(s). documented in this encounter Discharge Instructions Discharge InstructionsTee Mitchell - 12/05/2021 11:53 AM CDT You were discharged from the [facility] Cardiovascular Surgery - [facility] Service. Please identify this service name if you call with questions after hospitalization. AttachmentsThe following attachments cannot be sent through Care Everywhere. Acetaminophen (By mouth) (Zimbabwean)Amiodarone (By mouth) (Zimbabwean)Clopidogrel (By mouth) (Zimbabwean)Furosemide (By mouth) (Zimbabwean)Isosorbide Mononitrate (By mouth) (Zimbabwean)Polyethylene Glycol 3350 (By mouth) (Zimbabwean)Colchicine (By mouth) (Zimbabwean)Senna (By mouth) (Zimbabwean)documented in this encounter Medications at Time of [...] Take 1 tablet (10 30 tablet 0 03/07/2022 tablet mg total) by mouth daily. [...] Take 1 tablet (30 30 tablet 0 202112/09/2021 (IMDUR) 30 mg 24 hr tablet mg [...] made.) Rehana Headley O.T. Neal Laws P.T., D.P.T. - 12/08/2021 12:00 PM CDT 12/20/21 1547 Plan PT Plan Comments Patient discharged home. Patient has completed therapy. Goals set during this episode of care have been partially met. Adaptive equipment was issued to patient during this episode of care based on skilled need Patricia Thomas C.O.T.A., O.T.A. - 12/08/2021 9:41 AM CDT Occupational Therapy Acute Hospital Inpatient Treatment SUBJECTIVE Patient's Name: Leidy Lagunas Referring/Attending Provider: Dario Wiggins M.D. Medical Diagnosis: Coronary Artery Disease With Stable Angina (HCC) [I25.118] Preoperative Examination Cardiovascular [Z01.810] Atherosclerotic Heart Disease Of [place] Coronary Artery Without Angina Pectoris [I25.10] 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) [I25.119] [...] and patient's status was discussed Outcome Measures [facility] Inpatient Short Form: Putting on and [...] Standardized Score: 51.12 Interpretation: Clinicians answer the [facility] Inpatient Short Form based on observed [...] with shopping, Assistance with housekeeping, Assistance with account financial manager, Assistance with meal preparation Recommended Adaptive Equipment [...] min Total Treatment Time (min): 21 min Houston Marcelino, O.T.AShanice Lindsey Box P.T.May - 12/07/2021 3:34 PM CDT Physical Therapy Inpatient Treatment Note SUBJECTIVE Patient's Name: Leidy Lagunas Referring/Attending: Dario Wiggins M.D. Medical Diagnosis: Coronary Artery Disease With Stable Angina (HCC) [I25.118] Preoperative Examination Cardiovascular [Z01.810] Atherosclerotic Heart Disease Of [place] Coronary Artery Without Angina Pectoris [I25.10] 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) [I25.119] [...] therapy session: mask in hallway Outcome Measures AM-PAC Inpatient Short Form: AM-PAC Basic Mobility (V.2) How much help from [...] Little AM-PAC Basic Mobility (V.2) Raw Score: 22 AM-PAC Basic Mobility (V.2) Standardized Score: 47.4 Interpretation: Clinicians answer the [facility] Inpatient Short Form based on observed [...] activity, Neuromuscular re-education, Gait training, Self-care/home management [employer] PIPES ASSEMBLER Visit Trackin Billing: Time Spent with Patient Therapeutic Interventions Gait Training (min): 16 min Therapeutic Activity (min): 13 min Time Tracking Total Timed Units (min): 29 min Total Treatment Time (min): 29 min Lindsey Box, P.T.AShanice Patricia Thomas C.O.T.A., O.T.A. - 12/07/2021 10:50 AM CDT Occupational Therapy Acute Hospital Inpatient Treatment SUBJECTIVE Patient's Name: Leidy Grayilman Referring/Attending Provider: Dario Wiggins M.D. Medical Diagnosis: Coronary Artery Disease With Stable Angina (HCC) [I25.118] Preoperative Examination Cardiovascular [Z01.810] Atherosclerotic Heart Disease Of [place] Coronary Artery Without Angina Pectoris [I25.10] 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) [I25.119] [...] Discussed patient's care with PT Outcome Measures AM-PAC Inpatient Short Form: Putting on and taking [...] Standardized Score: 51.12 Interpretation: Clinicians answer the [facility] Inpatient Short Form based on observed [...] with shopping, Assistance with housekeeping, Assistance with account financial manager, Assistance with meal preparation Recommended Adaptive Equipment [...] min Total Treatment Time (min): 48 min Daphne MarcelinoTImani., O.T.A. Ceci Jaramillo APRN, C.N.P., M.S.N. 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 Wiggins or their resident/fellow. Michelle Jewell R.R.T., L.R.T. - 12/07/2021 9:20 AM CDT Nocturnal oxygen assessment completed. Patient did not qualify for supplemental oxygen during the night. Electronically signed by: Michelle Jewell R.R.T., L.R.T. 12/07/21 9:20 AM CDT Ceci Jaramillo APRN, C.N.PShanice, M.S.N. 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 5. GI/Endocrine: . Last bowel movement 12/06, continue bowel regimens and PRN available. Continue Protonix for GI prophylaxis. 6. Hem: DVT prophylaxis continues with ambulation. Anticoagulation therapy continues with ASA and Plavix. 7. ID/Skin: no concerns. WBC stable at 10.4. Wound vac to be removed POD#5. 8. Code Status: Full Code 9. Disposition: Anticipated date 12/07-12 [address] Home with home oxygen 10. Medication reconciliation completed Patient was seen and/or care plan discussed with Dr. Wiggins or their resident/fellow. Ceci Jaramillo APRN, C.N.P., M.S.N. - 12/06/2021 11:57 AM CDT MEDIASTINAL [...] actuation system was not present. Hermilo Severino, Kevon.Ph. - 12/06/2021 7:21 AM CDT Clinical Pharmacist [...] JOSE ANGEL/ARB as able for renal protectiveeffects Kevon Das.Ph. Aline Loredo P.A.-C. 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 - 12/04/2021 6:36 AM CDT Clinical [...] amlodipine, losartan, tamsulosin Yadi Lopes Pharm.D., R.Ph. ANNAT Prudencio Schulte P.A.-C. - 12/04/2021 4:26 AM [...] weaned from vasoactive infusions. [facility]. 24 Hour Events: Mr. Leidy Lagunas was weaned from mechanical ventilation and extubated. He had [address] elevation in nghai-lateral leads. He endorsed chest discomfort. Echocardiogram revealed [...] Examination Cardiovascular #3 Atherosclerotic Heart Disease Of [place] Coronary Artery Without Angina Pectoris 1. Neuro: [...] 12/03 #2 prior mid LAD FRANSISCA in 2005 #3 need for postoperative mechanical ventilation #4 [...] Gary Fleming MD Anesthesia Critical Care Ricardo Willett R.R.T., L.R.T. - 12/03/2021 3:35 PM CDT Respiratory Therapy provided patient transport from [facility] to [facility] using assisted ventilation settings: CMV 14, 500, 8, 60%. Conversation with in-room provider prior to transport; patient transported without incident. Electronically signed by: Ricardo Willett R.R.T., Danielito.R.TShanice 12/03/21 3:35 PM CDT Sparkle Mena Pharm.D., R.Ph. - 12/03/2021 10:49 AM CDT Images from the original note were not included. Admission Medication History Note Adherence issues: No concerns Medication list source: Patient and family Medication related information: None Prior to Admission Medications Med List Status: Pharmacy Complete Set By: Sparkle Mena Pharm.D., R.Ph. at 12/03/2021 10:48 AM Taking? [...] needed (Back pain). Rarely uses Sparkle Mena PharmZac, R.Ph. Brent Robbins PharmZac, R.Ph. - 12/03/2021 9:56 AM CDT Clinical [...] goal < 130/80 4. Chronic rhinitis Brent Robbins Pharm.D., R.Ph. documented in this encounter Consult Notes Griselda De Leon R.N. 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 no Advance Directives Legal Decision Maker: Self Advance Directives: (Patient not interested in information at this time.) OBJECTIVE Baseline Functional Status Baseline Activities of Daily Living Mobility: Independent Dressing: Independent Feeding: Independent Bathing: Independent Grooming: Independent Toileting: Independent Behavior: Appropriate, Oriented Communication: Talks, Understands speaking, Understands [place]an Shopping: Independent Transportation: Independent to drive Medication [...] or Self Care ASSESSMENT / PLAN Discussion balloon artist met with patient and his daughter, Destiny, [...] on being his main caregiver. Assessment: The balloon artist met with Leidy Lagunas to discuss his current hospitalization and home going needs. The patient was accompanied by daughter, Destiny . The patient was a generally reliable historian, but occasionally needs support from his daughter, Destiny, for complete accuracy. The role of balloon artist was reviewed. The patient and patient's daughter reviewed his prior level of care and support system. The patient receives support from his , daughter and extended family. The patient's daughter described his living environment as a multiple level home with stairs to enter without rails. Housekeeping, grocery shopping, meal prep, and other household responsibilities havepreviously been completed by patient's . balloon artist discussed the patient's potential needsat dismissal based [...] will be provided by family--, Bria. 3. balloon artist recommended nothing at this time. 4. balloon artist provided information regarding the dismissal process. 5. balloon artist placed or requested the following hospital-based consult orders and/or referrals:None. 6. balloon artist will continue to assess for homegoing needs with the interdisciplinary team. 7. balloon artist encouraged the patient to reach out with any questions/concerns. Home oxygen will be provided by: Durable Medical Equipment - Admitted Since 12/03/2021 Service Provider Selected Services Address Phone Fax Patient [facility] Durable Medical Equipment [address] [place] [address] [phone] -- Contact: On-Call, follow prompts to make [...] Griselda De Leon R.N. 12/06/2021 Ginny Weathers PRosalia., D.P.T. - 12/06/2021 10:04 AM CDT Physical Therapy Inpatient Evaluation/Treatment SUBJECTIVE Patient's Name: Leidy Lagunas Referring/Attending Provider: Dario Wiggins M.D. Medical Diagnosis: Coronary Artery Disease With Stable Angina (HCC) [I25.118] Preoperative Examination Cardiovascular [Z01.810] Atherosclerotic Heart Disease Of [place] Coronary Artery Without Angina Pectoris [I25.10] 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) [I25.119] [...] 57 (HCC) ??? Atherosclerotic Heart Disease [place] Coronary Artery Without Angina Pectoris ??? 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) ??? [...] Boweling center Prior Mobility/Functional Transfers Level of Mcdonough: Independent Home Equipment Gait Devices Owned: Front-wheeled [...] pt then fully reclined in chair with FRITZ Peterson notified and presentin room Pt reporting full [...] was wearing a mask: yes Outcome Measures AM-PAC Inpatient Short Form: AM-PAC Basic Mobility (V.2) How much help from [...] Standardized Score: 42.48 Interpretation: Clinicians answer the [facility] Inpatient Short Form based on observed [...] Hospital Inpatient Evaluation/Treatment SUBJECTIVE Patient's Name: Leidy Grayilman Referring/Attending Provider: Dario Wiggins M.D. Medical Diagnosis: Coronary Artery Disease With Stable Angina (HCC) [I25.118] Preoperative Examination Cardiovascular [Z01.810] Atherosclerotic Heart Disease Of [place] Coronary Artery Without Angina Pectoris [I25.10] 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) [I25.119] [...] 57 (HCC) ??? Atherosclerotic Heart Disease [place] Coronary Artery Without Angina Pectoris ??? 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) ??? [...] Location: [facility] OR History of Present Illness:Pt presenting s/p CABGx3. 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 Lagunas is a pleasant 76 y/o who is [...] his functional baseline and warrants continued skilled rn occupational apy to maximize functional independence and safety. [...] (min): 27 min Rehana Headley O.T. Dahlia Hussein, CEP - 12/05/2021 10:43 AM CDTAssociated Order(s): [...] the cardiac rehab program. Patient referred to: [facility] [address] [place] [address] Recommend that the patient check with insurance [...] SVG-RCA, and SVR-ramus on 12/03/2021 with the [facility] Surgical Service. The CICU was [...] leads (greatest anterolaterally) with positiveSpodick's sign and WA-segment elevation and ST-segment depression in aVR. T-wave [...] SVG-RCA, and SVR-ramus on 12/03/2021 with the [facility] Surgical Service. The CICU was contacted for [...] referring surgical ICU team and the CICU product marketing consultant, Dr. Alfonso Zapata. Please page the [...] PIVs removed. Education completed and questions answered. DISPUTE SPECIALIST reviewed the AVS. Pt stopped at pharmacy. [...] Lisa Marroquin RRT-NPS 12/07/21 4:53 AM CDT ANNAT Farnaz Garcia L.R.T., RRT-NPS - 12/06/2021 10:22 PM CDT RT discussed with nursing staff and they have been informed about the nocturnal home oxygen study. They know that once the patient has fallen asleep to notify the monitoring lab ([id number]) and to place the patient on room [...] back in with nursing around 5-6 am. Teresa Locke R.N. - 12/06/2021 6:36 AM CDT Shift [...] R.N. 12/05/21 5:53 AM CDT Ayanna Serrano M.S., R.N. - 12/04/2021 7:44 PM CDT Shift [...] 12/04/21 7:47 PM CDT Johanna Robledo L.R.T., DATABASE REPORTING CONSULTANT-[facility] - 12/03/2021 3:54 PM CDT Leidy Lagunas [...] mask at bedside. Electronically signed by: Lisa Waite RRT-[facility] 12/03/21 5:47 PM CDT documented in this encounter OR Notes Op Note - Dario Wiggins M.D. - 12/03/2021 9:54 AM CDT Pre-op Diagnosis Coronary Artery Disease With Stable Angina (HCC),Preoperative Examination Cardiovascular Post-op Diagnosis Coronary Artery Disease With Stable Angina (HCC),Preoperative Examination Cardiovascular A medical clerical assistant actively participated and was necessary for one [...] did emerge back from underneath the muscle long-term down the obtuse margin, so we anastomosed [...] this encounter Miscellaneous Notes Hospital Course - Ceci Jaramillo APRN, C.N.P., M.S.N. - 12/04/2021 4:29 AM CDT [...] Dario Wiggins M.D. Primary Lance Hearn M.D. Sander And Polisher Dismissal Vitals: Admission Weight: 92.2 kg Blood [...] Name Type Priority Associated Diagnoses Order S [facility] External referral Outpatient Referral Routine Bypass Coronary Ordered: cardiac rehab Artery Graft Status 022 program (non-[place]) Post documented as of this encounter Procedures [...] CBC without Differential (12/08/2021 5:28 AM CDT) [facility] gist Method Time Signature Hemoglobin 10.7 (L) [...] Organization Address City/State/ZIP Code Phon e Number [facility] - [address] [place], [place] [address] [facility] [place] [address] [facility] [address] (ABNORMAL) Basic Metabolic Panel (12/08/2021 5:28 AM [...] 12/08/2021 DTL Black/ mL/min/BSA 6:27 AM CDT Colombian Comment: ----ADDITIONAL INFORMATION---- Estimated GFR calculated using [...] Laterality Blood (Blood, 12/08/2021 5:28 AM 12/09/19 22 6:09 Arterial) CDT AM CDT Lance Hearn M.D. LAB BLOOD ADD-ON Performing Organization Address City/[facility] Code Phon e Number [facility] - [address] [place], [place] [address] [facility] [place] [address] [facility] [address] [facility] DX Chest Portable 1 View (12/07/2021 7:20 [...] RESPIRATORY CARE ORDER IKER Performing Organization Address City/[facility]/ZIP Code Phon e Number ONBASE (ABNORMAL) CBC without Differential (12/07/2021 5:58 AM CDT) [facility] Method Time Signature Hemoglobin 10.5 (L) 13.2 [...] M.D. LAB BLOOD ADD-ON Performing Organization Address City/State/[facility] Code Phon e Number [facility] - 200 [place], [place] [address] [facility] [place] [address] [facility] [address] [facility] (ABNORMAL) Basic Metabolic Panel (12/07/2021 5:58 [...] 12/07/2021 DTL Black/ mL/min/BSA 7:13 AM CDT Colombian Comment: ----ADDITIONAL INFORMATION---- Estimated GFR calculated using [...] Laterality Blood (Blood, 12/07/2021 5:58 AM 12/08/19 6:56 Arterial) CDT AM CDT Lance Hearn M.D. LAB BLOOD ADD-ON Performing Organization Address City/State/ZIP Code Phon e Number [facility] - [address] [place], [place] [address] [facility] [place] [address] [facility] [address] [facility] ECG 12 Lead (12/07/2021 5:29 AM CDT) [facility] Method Time Signature Ventricular 73 BPM MUSE Rate ECG/Min QRSD Interval 100 ms MUSE QT Interval 420 ms MUSE QTC Interval 462 ms MUSE R Fowler 4 degrees MUSE T Wave Fowler 34 degrees MUSE CODED Atrial MUSE DIAGNOSIS fibrillation CODED Atrial MUSE DIAGNOSIS fibrillation Specimen Anatomical Collection Method Collection Time Receive d Time (Source) Location / / Volume Laterality 12/07/2021 5:29 AM 2 CDT 10:34 AM CDT Impressions MUSE - [...] in Lateral leads Reviewed by RUSH Alford Mikel Dougherty APRN.N.Donal, M.S.N. ECG ORDERABLES Performing Organization Address City/State/ZIP [...] of obstruction. Degenerative arthritis lumbar spine. Sternotomy. Dom Dougherty APRNNBlake, M.S.N. IMG DIAGNOSTIC IMAGING PROCEDURES Glucose, POCT (12/06/2021 11:37 AM CDT) Analysis Performed At [facility] logist Time Signature Glucose, POCT, 124 70 - 140 12/06/2021 PCLX B mg/dL 11:42 AM CDT Last Intake 1-2 hours 12/06/2021 PCLX 11:42 AM CDT Specimen Anatomical Collection Method Collection Time Receive d Time (Source) Location / / Volume Laterality Blood 12/06/2021 11:37 12/06/2021 AM CDT 11:42 AM CDT Unknown Provider LAB POCT ORDERABLES-MANUAL Performing Organization Address City/State/ZIP Code Phon e Number POC [facility] [address] [place] [address] PCLX [facility] [place] [address] [place] [facility] [address] (ABNORMAL) CBC without Differential (12/06/2021 5:35 AM CDT) Patholo gist Method Time Signature Hemoglobin 10.9 (L) 13.2 [...] Laterality Blood (Blood, 12/06/2021 5:35 AM 12/07/19 6:15 Arterial) CDT AM CDT Lance Hearn M.D. LAB BLOOD ADD-ON Performing Organization Address City/State/ZIP Code Phon e Number [facility] - [address] [place], [place] [address] [facility] [place] [address] [facility] [address] [facility] (ABNORMAL) Basic Metabolic Panel (12/06/2021 5:35 [...] 12/06/2021 DTL Black/ mL/min/BSA 6:48 AM CDT Colombian Comment: ----ADDITIONAL INFORMATION---- Estimated GFR calculated using [...] Laterality Blood (Blood, 12/06/2021 5:35 AM 12/07/19 6:31 Arterial) CDT AM CDT Lance Hearn M.D. LAB BLOOD ADD-ON Performing Organization Address City/State/[facility] Phon e Number [facility] - [address] [place] [address] Potassium (12/05/2021 1:22 PM CDT) athologist Signature Potassium, S 4.4 3.6 - 5.2 12/05/2021 DTL mmol/L 2:24 PM CDT Specimen Anatomical Collection Method Collection Time Receive d Time (Source) Location / / Volume Laterality Blood (Blood, 12/05/2021 1:22 PM 12/06/19 2:12 Venous) CDT PM CDT Aline Loredo P.A.-C. LAB BLOOD ADD-ON Performing Organization Address City/[facility] Phon e Number [facility] - [address] (ABNORMAL) Magnesium (12/05/2021 6:02 AM CDT) P athologist Signature Magnesium, S 2.5 (H) 1.7 - 2.3 12/05/2021 DTL mg/dL 7:11 AM CDT Specimen Anatomical Collection Method Collection Time Receive d Time (Source) Location / / Volume Laterality Blood (Blood, 12/05/2021 6:02 AM 12/06/19 6:54 Venous) CDT AM CDT Edward Chambers APRN, C.N.P., M.S.N. LAB BLOOD ADD-O N Performing Organization Address City/State/ZIP Code Phon e Number [facility] - [address] [place], [place] [address] [facility] [place] [address] [facility] [address] (ABNORMAL) Basic Metabolic Panel (12/05/2021 6:02 AM CDT) P athologist Signature Potassium, S 5.0 3.6 - [...] 12/05/2021 DTL Black/ mL/min/BSA 7:11 AM CDT Colombian Comment: ----ADDITIONAL INFORMATION---- Estimated GFR calculated using [...] Laterality Blood (Blood, 12/05/2021 6:02 AM 12/06/19 22 6:54 Arterial) CDT AM CDT Lance Hearn M.D. LAB BLOOD ADD-ON Performing Organization Address City/[facility] Phon e Number [facility] - [address] [facility] (ABNORMAL) CBC without Differential (12/05/2021 6:01 AM CDT) [facility] Method Time Signature Hemoglobin 11.4 (L) 13.2 [...] M.D. LAB BLOOD ADD-ON Performing Organization Address City/[facility] Phon e Number [facility] - [address] [place] [address] [facility] [address] [place] [address] [facility] (ABNORMAL) Basic Metabolic Panel (12/04/2021 11:28 PM [...] 12/05/2021 DTL Black/ mL/min/BSA 1:53 AM CDT Colombian Comment: ----ADDITIONAL INFORMATION---- Estimated GFR calculated using [...] 12/05/2021 Venous) PM CDT 12:11 AM CDT Edward Chambers APRN C.N.P., M.S.N. LAB BLOOD ADD-O N Performing Organization Address City/State/ZIP Code Phon e Number [facility] - [address] [place], [place] [address] [facility] [place] [address] [facility] [address] [facility] (ABNORMAL) Glucose, POCT (12/04/2021 9:14 PM CDT) Analysis Performed At Patho logist Time Signature Glucose, POCT, 144 (H) 70 - 140 12/04/2021 PCLX B mg/dL 9:20 PM CDT Site Capillary 12/04/2021 PCLX 9:20 PM CDT Specimen Anatomical Collection Method Collection Time Receive d Time (Source) Location / / Volume Laterality Blood 12/04/2021 9:14 PM 2 9:20 CDT PM CDT Unknown Provider LAB POCT ORDERABLES-MANUAL Performing Organization Address City/[facility] Phon e Number POC [facility] 200 [place] [address] [place] [address] [place] [facility] [address] [facility] (ABNORMAL) Glucose, POCT (12/04/2021 6:09 PM CDT) Analysis Performed At Patho logist Time Signature Glucose, POCT, 154 (H) 70 - 140 12/04/2021 PCLX B mg/dL 6:32 PM CDT Site Capillary 12/04/2021 PCLX 6:32 PM CDT Last Intake 1-2 hours 12/04/2021 PCLX 6:32 PM CDT Specimen Anatomical Collection Method Collection Time Receive d Time (Source) Location / / Volume Laterality Blood 12/04/2021 6:09 PM 2 6:33 CDT PM CDT Unknown Provider LAB POCT ORDERABLES-MANUAL Performing Organization Address City/State/[facility] Phon e Number POC [facility] 200 [place] [address] [place] [address] [place] [facility] [address] [facility] Glucose, POCT (12/04/2021 11:59 AM CDT) [...] Address City/State/ZIP Code Phon e Number POC [facility] [address] [place] [address] PCLX [facility] [place] [address] [place] [facility] [address] (ABNORMAL) Basic Metabolic Panel (12/04/2021 10:30 AM [...] eGFR-Black/Afri 58 (L) >=60 12/04/2021 STMA can [place]ian mL/min/BSA 10:59 AM CDT Comment: ----ADDITIONAL INFORMATION---- Estimated GFR calculated using the 2009 CKD_EPI creatinine equation. eGFR Non-Black/ 50 (L) >=60 mL/min/BSA 12/04/2021 10:59 AM CDT ST[facility] [place]ian Comment: ----ADDITIONAL INFORMATION---- Estimated GFR calculated using [...] P.A.-C. LAB BLOOD ADD-ON Performing Organization Address City/[facility] Phon e Number [place] [address] 05 [place] [address] Potassium (12/04/2021 9:44 AM CDT) athologist Signature Potassium, P 4.8 3.6 - 5.2 12/04/2021 [facility] mmol/L 9:58 AM CDT Specimen Anatomical Collection Method Collection Time Receive d Time (Source) Location / / Volume Laterality Blood (Blood, 12/04/2021 9:44 AM 12/05/19 9:47 Venous) CDT AM CDT Prudencio Schulte P.A.-C. LAB BLOOD ADD-ON Performing Organization Address City/[facility] Phon e Number [address] (ABNORMAL) Basic Metabolic Panel (12/04/2021 8:20 AM CDT) athologist Signature Potassium, P 3.5 (L) 3.6 [...] CDT eGFR-Black/Afri 82 >=60 12/04/2021 ST[facility] can [place]ian mL/min/BSA 8:49 AM CDT Comment: ----ADDITIONAL INFORMATION---- [...] Organization Address City/State/ZIP Code Phon e Number [facility] - [address] [place], [place] [address] [facility] [place] [address] [facility] [address] Glucose, POCT (12/04/2021 8:19 AM CDT) Analysis Performed At Patho logist Time Signature Glucose, POCT, 118 70 - 140 12/04/2021 PCLX B mg/dL 8:24 AM CDT Site ARTLINE 12/04/2021 PCLX 8:24 AM CDT Last Intake > 4 hours 12/04/2021 PCLX 8:24 AM CDT Specimen Anatomical Collection Method Collection Time Receive d Time (Source) Location / / Volume Laterality Blood 12/04/2021 8:19 AM 8:24 CDT AM CDT Unknown Provider LAB POCT ORDERABLES-MANUAL Performing Organization Address City/State/ZIP Code Phon e Number [facility] [address] [place] [address] PCLX [facility] [place] [address] [facility] [address] Glucose, POCT (12/04/2021 7:38 AM CDT) athologist Signature Glucose, POCT, 120 70 - 140 12/04/2021 PCLX B mg/dL 7:39 AM CDT Site ARTLINE 12/04/2021 PCLX 7:39 AM CDT Specimen Anatomical Collection Method Collection Time Receive d Time (Source) Location / / Volume Laterality Blood 12/04/2021 7:38 AM 2 7:39 CDT AM CDT Unknown Provider LAB POCT ORDERABLES-MANUAL Performing Organization Address City/State/ZIP [facility] Phon e Number POC [facility] [address] [place] [address] [place], [place] [address] [place] [address] Glucose, POCT (12/04/2021 7:07 AM CDT) athologist Signature Glucose, POCT, 138 70 - 140 12/04/2021 PCLX B mg/dL 7:09 AM CDT Site ARTLINE 12/04/2021 PCLX 7:09 AM CDT Last Intake NPO 12/04/2021 PCLX 7:09 AM CDT Specimen Anatomical Collection Method Collection Time Receive d Time (Source) Location / / Volume Laterality Blood 12/04/2021 7:07 AM 2 7:09 CDT AM CDT Unknown Provider LAB POCT ORDERABLES-MANUAL Performing Organization Address City/[facility] Phon e Number POC [facility] [address] [place] [address] [place] [id number] [place] [address] Glucose, POCT (12/04/2021 6:23 AM CDT) athologist [...] Address City/State/ZIP Code Phon e Number POC [facility] [address] [place] [address] PCLX [facility] [place] [address] [place] [facility] [address] DX Chest Portable with AM Rounds 1 [...] SVC. No defin ite residual pneumothorax. Lance Hearn M.D. Woody DIAGNOSTIC IMAGING PROC EDURES (ABNORMAL) Calcium, Ionized (12/04/2021 4:24 AM CDT) P athologist Signature Calcium, 4.57 (L) 4.65 - 12/04/2021 [facility] Ionized, B 5.30 mg/dL 4:31 AM CDT Specimen Anatomical Collection Method Collection Time Receive d Time (Source) Location / / Volume Laterality Blood 12/04/2021 4:24 AM 2 4:29 CDT AM CDT Prudencio Schulte P.A.-C. LAB BLOOD NON ADD-ON Performing Organization Address City/State/ZIP Code Phon e Number [facility] - 200 [place], [place] [address] [place] [address] Lactate (12/04/2021 4:24 AM CDT) P athologist Signature Lactate, P 0.9 0.5 - 2.2 12/04/2021 DTL mmol/L 5:20 AM CDT Specimen Anatomical Collection Method Collection Time Receive d Time (Source) Location / / Volume Laterality Blood (Blood, 12/04/2021 4:24 AM 12/05/19 5:20 Arterial) CDT AM CDT Prudencio Schulte P.A.-C. LAB BLOOD NON ADD-ON Performing Organization Address City/[facility]/ZIP Code Phon e Number [facility] - [address] [place] [address] [facility] [place] [address] Patient Status (12/04/2021 4:24 AM CDT) P athologist Signature O2 Flow 4.0 L/min 12/04/2021 [...] Organization Address City/State/ZIP Code Phon e Number [facility] - 200 [place] [address] [facility] [place] [address] (ABNORMAL) CBC without Differential (12/04/2021 4:24 AM CDT) Patholo gist Method Time Signature Hemoglobin 11.5 (L) 13.2 [...] Organization Address City/State/ZIP Code Phon e Number [facility] - [address] [place] [address] [facility] [place] [address] [facility] [address] [facility] (ABNORMAL) Basic Metabolic Panel (12/04/2021 4:24 [...] 12/04/2021 DTL Black/ mL/min/BSA 5:22 AM CDT Colombian Comment: ----ADDITIONAL INFORMATION---- Estimated GFR calculated using [...] M.D. LAB BLOOD ADD-ON Performing Organization Address City/State/[facility] Code Phon e Number [facility] - [address] [place], [place] [address] [facility] [place] [address] [facility] [address] [facility] (ABNORMAL) Blood Gas without Coox, Arterial (12/04/2021 [...] Organization Address City/State/ZIP Code Phon e Number [facility] - [address] [place], [place] [address] [facility] [place] [address] Laboratories[address] APTT (Activated Partial Thromboplastin Time) (12/04/2021 4:24 AM CDT) P athologist Signature Activated 26 25 - 37 sec 12/04/2021 DTL Partial 5:16 AM CDT Thrombopl Time, P Specimen Anatomical Collection Method Collection Time Receive d Time (Source) Location / / Volume Laterality Blood (Blood, 12/04/2021 4:24 AM 12/05/19 4:42 Arterial) CDT AM CDT Lance Hearn M.D. LAB BLOOD ADD-ON Performing Organization Address City/[facility]/ZIP Code Phon e Number [facility] - [address] [place], [place] [address] [facility] [place] [address] [address] (ABNORMAL) Prothrombin Time (PT) (12/04/2021 4:24 AM CDT) Patholo gist Method Time Signature Prothrombin 13.0 (H) 9.4 - 12.5 12/04/2021 DTL Time, P sec 5:16 AM CDT INR 1.2 0.9 - 1.1 12/04/2021 DTL 5:16 AM CDT Comment: ----ADDITIONAL INFORMATION---- Standard [...] Organization Address City/State/ZIP Code Phon e Number [facility] - [address] [place], [place] [address] [facility] [place] [place] [address] [facility] [address] [facility] Glucose, POCT (12/04/2021 3:54 AM CDT) athologist Signature Glucose, POCT, 140 70 - 140 12/04/2021 PCLX B mg/dL 3:56 AM CDT Site ARTLINE 12/04/2021 PCLX 3:56 AM CDT Specimen Anatomical Collection Method Collection Time Receive d Time (Source) Location / / Volume Laterality Blood 12/04/2021 3:54 AM 2 3:56 CDT AM CDT Unknown Provider LAB POCT ORDERABLES-MANUAL Performing Organization Address City/State/ZIP Code Phon e Number POC [facility] 200 [place] [address] [place] [address] [place] [facility] [address] [facility] (ABNORMAL) Glucose, POCT (12/04/2021 1:59 AM CDT) athologist Signature Glucose, POCT, 148 (H) 70 - 140 12/04/2021 PCLX B mg/dL 2:00 AM CDT Site ARTLINE 12/04/2021 PCLX 2:00 AM CDT Specimen Anatomical Collection Method Collection Time Receive d Time (Source) Location / / Volume Laterality Blood 12/04/2021 1:59 AM 2 2:00 CDT AM CDT Unknown Provider LAB POCT ORDERABLES-MANUAL Performing Organization Address City/State/ZIP Code Phon e Number POC [facility] 200 [place] [address] PCLX [facility] [place] [address] [place] [facility] [address] [facility] Glucose, POCT (12/04/2021 12:55 AM CDT) athologist Signature Glucose, POCT, 138 70 - 140 12/04/2021 PCLX B mg/dL 12:57 AM CDT Site ARTLINE 12/04/2021 PCLX 12:57 AM CDT Specimen Anatomical Collection Method Collection Time Receive d Time (Source) Location / / Volume Laterality Blood 12/04/2021 12:55 12/04/2021 AM CDT 12:57 AM CDT Unknown Provider LAB POCT ORDERABLES-MANUAL Performing Organization Address City/[facility]/ZIP [facility] Phon e Number POC [facility] [address] [place] [address] [place] [address] [place] [facility] [address] [facility] Glucose, POCT (12/04/2021 12:05 AM CDT) athologist Signature Glucose, POCT, 138 70 - 140 12/04/2021 PCLX B mg/dL 12:07 AM CDT Site ARTLINE 12/04/2021 PCLX 12:07 AM CDT Specimen Anatomical Collection Method Collection Time Receive d Time (Source) Location / / Volume Laterality Blood 12/04/2021 12:05 12/04/2021 AM CDT 12:07 AM CDT Unknown Provider LAB POCT ORDERABLES-MANUAL Performing Organization Address [facility] Phon e Number POC [facility] [address] [place] [address] [place] [address] [place] [facility] [address] [facility] (ABNORMAL) Glucose, POCT (12/03/2021 11:02 PM CDT) athologist Signature Glucose, POCT, 156 (H) 70 - 140 12/03/2021 PCLX B mg/dL 11:03 PM CDT Site ARTLINE 12/03/2021 PCLX 11:03 PM CDT Specimen Anatomical Collection Method Collection Time Receive d Time (Source) Location / / Volume Laterality Blood 12/03/2021 11:02 12/03/2021 PM CDT 11:03 PM CDT Unknown Provider LAB POCT ORDERABLES-MANUAL Performing Organization Address City/[facility]/ZIP [facility] Phon e Number POC [facility] [address] [place] [address] [place], [place] [address] [place] [address] POC [address] [facility] (TTE) 2D ECHO DOPPLER COLOR (12/03/2021 10:21 [...] For the complete report, see the [employer] Documents. Narrative 12/03/2021 10:16 PM CDT For [...] original. For the complete report, see the [employer] Documents. Final Impressions 1. Limited emergency echo [...] (ABNORMAL) Glucose, POCT (12/03/2021 10:15 PM CDT) athologist Signature Glucose, POCT, 177 (H) 70 - 140 12/03/2021 PCLX B mg/dL 10:17 PM CDT Specimen Anatomical Collection Method Collection Time Receive d Time (Source) Location / / Volume Laterality Blood 12/03/2021 10:15 12/03/2021 PM CDT 10:17 PM CDT Unknown Provider LAB POCT ORDERABLES-MANUAL Performing Organization Address City/[facility]/ZIP Code Phon e Number POC [facility] [address] [place] [address] [place] [address] [facility] [address] [facility] Patient Status (12/03/2021 9:46 PM CDT) athologist Signature O2 Flow 4.0 [...] Organization Address City/State/ZIP Code Phon e Number [facility] - 200 [place], [place] [address] [facility] [place] [address] [facility] [address] [facility] (ABNORMAL) Blood Gas with Coox, Venous (12/03/2021 9:46 PM CDT) [facility] gist Method Time Signature Venous pO2 40 [...] Organization Address City/State/ZIP Code Phon e Number [facility] - [address] [place], [place] [address] [place] [address] [facility] [address] (ABNORMAL) pH (12/03/2021 9:45 PM CDT) P athologist Signature pH 7.28 (L) 7.35 - 7.45 12/03/2021 [facility] pH 9:53 PM CDT Specimen Anatomical Collection Method Collection Time Receive d Time (Source) Location / / Volume Laterality Blood 12/03/2021 9:45 PM 9:50 CDT PM CDT Prudencio ChandraC. LAB HISTORICAL ORDERS Performing Organization Address City/[facility]/ZIP Code Phon e Number [facility] - 200 [place] [address] [address] Calcium, Ionized (12/03/2021 9:45 PM CDT) athologist Signature Calcium, 5.15 4.65 - 5.30 12/03/2021 [facility] Ionized, B mg/dL 9:53 PM CDT Specimen Anatomical Collection Method Collection Time Receive d Time (Source) Location / / Volume Laterality Blood (Blood, 12/03/2021 9:45 PM 12/04/19 9:50 Venous) CDT PM CDT Prudencio Schulte P.A.-C. LAB BLOOD NON ADD-ON Performing Organization Address [facility] Phon e Number [facility] - [address] Patient Status (12/03/2021 9:42 PM CDT) [...] LAB BLOOD NON ADD-ON Performing Organization Address City/[facility]/ZIP [facility] Phon e Number [address] (ABNORMAL) Blood Gas with Coox, Arterial [...] Laterality Blood (Blood, 12/03/2021 9:42 PM 12/04/19 22 9:46 Arterial) CDT PM CDT Prudencio Schulte P.A.-C. LAB BLOOD NON ADD-ON Performing Organization Address City/State/ZIP Code Phon e Number [facility] - [address] [place], [place] [address] [facility] [place] [address] [facility] [address] Potassium (12/03/2021 9:42 PM CDT) P athologist Signature Potassium, P 4.9 3.6 - 5.2 12/03/2021 [facility] mmol/L 10:02 PM CDT Specimen Anatomical Collection Method Collection Time Receive d Time (Source) Location / / Volume Laterality Blood (Blood, 12/03/2021 9:42 PM 12/04/19 22 9:46 Venous) CDT PM CDT Prudencio Schulte P.A.-C. LAB BLOOD ADD-ON Performing Organization Address City/[facility] Phon e Number [facility] - [address] [place], [place] [address] [place] [address] [facility] [address] [facility] (ABNORMAL) Lactate (12/03/2021 9:42 PM CDT) athologist Signature Lactate, P 7.6 (H) 0.5 - 2.2 12/03/2021 [facility] mmol/L 10:03 PM CDT Specimen Anatomical Collection Method Collection Time Receive d Time (Source) Location / / Volume Laterality Blood (Blood, 12/03/2021 9:42 PM 12/04/19 9:46 Arterial) CDT PM CDT Prudencio Schulte P.A.-C. LAB BLOOD NON ADD-ON Performing Organization Address City/[facility]/ZIP [facility] Phon e Number [facility] - [address] [place], [place] [address] [place] [address] [facility] [address] [facility] (ABNORMAL) Glucose, POCT (12/03/2021 9:41 PM CDT) athologist Signature Glucose, POCT, 165 (H) 70 - 140 12/03/2021 PCLX B mg/dL 9:56 PM CDT Specimen Anatomical Collection Method Collection Time Receive d Time (Source) Location / / Volume Laterality Blood 12/03/2021 9:41 PM 9:56 CDT PM CDT Unknown Provider LAB POCT ORDERABLES-MANUAL Performing Organization Address City/[facility] Phon e Number POC [facility] [address] [place] [address] [place] [address] [place] [facility] [address] [facility] ECG 12 Lead (12/03/2021 9:14 PM CDT) athologist Signature Ventricular Rate 63 BPM MUSE ECG/Min [place] Interval 202 ms MUSE QRSD Interval 94 ms MUSE QT Interval 424 ms MUSE QTC Interval 433 ms MUSE P Fowler 32 degrees MUSE R Fowler -3 degrees MUSE T Wave Fowler 10 degrees MUSE Specimen Anatomical Collection Method Collection Time Receive d Time (Source) Location / / Volume Laterality 12/03/2021 9:14 PM 2 9:20 CDT PM CDT Impressions MUSE - [...] Signature Ventricular Rate 62 BPM MUSE ECG/Min WA Interval 198 ms MUSE QRSD Interval 94 ms MUSE QT Interval 444 ms MUSE QTC Interval 450 ms MUSE P Fowler 38 degrees MUSE R Fowler -5 degrees MUSE T Wave Fowler 14 degrees MUSE Specimen Anatomical Collection Method Collection Time Receive d Time (Source) Location / / Volume Laterality 12/03/2021 8:31 PM 2 9:02 CDT AM CDT Impressions MUSE - 12/03/2021 8:45 PM CDT Normal sinus rhythm Minimal voltage criteria for LVH, may be normal variant Cannot rule out Inferior infarct slight WA depression ST elevation in Anterolateral leads (con [...] variant Cannot rule out Inferior infarct slight WA depression ST elevation in Anterolateral leads (con [...] (ABNORMAL) Glucose, POCT (12/03/2021 8:02 PM CDT) athologist Signature Glucose, POCT, 164 (H) 70 - 140 12/03/2021 PCLX B mg/dL 8:03 PM CDT Specimen Anatomical Collection Method Collection Time Receive d Time (Source) Location / / Volume Laterality Blood 12/03/2021 8:02 PM 8:03 CDT PM CDT Unknown Provider LAB POCT ORDERABLES-MANUAL Performing Organization Address City/[facility] Phon e Number POC [facility] SERVICES [address] [place] [address] PCLX [facility] [place] [address] [facility] [address] (ABNORMAL) Lactate (12/03/2021 6:56 PM CDT) athologist Signature Lactate, P 10.1 (H) 0.5 - 2.2 12/03/2021 DTL mmol/L 7:44 PM CDT Specimen Anatomical Collection Method Collection Time Receive d Time (Source) Location / / Volume Laterality Blood (Blood, 12/03/2021 6:56 PM 12/04/19 7:30 Venous) CDT PM CDT Darcy Mcclure P.A.-C. LAB BLOOD NON ADD-ON Performing Organization Address City/[facility]/ZIP Code Phon e Number [facility] - [address] [place], [place] [address] [facility] [place] [address] [facility] [address] (ABNORMAL) Glucose, POCT (12/03/2021 6:51 PM CDT) athologist Signature Glucose, POCT, 176 (H) 70 - 140 12/03/2021 PCLX B mg/dL 6:54 PM CDT Site ARTLINE 12/03/2021 P[facility] 6:54 PM CDT Specimen Anatomical Collection Method Collection Time Receive d Time (Source) Location / / Volume Laterality Blood 12/03/2021 6:51 PM 2 6:54 CDT PM CDT Unknown Provider LAB POCT ORDERABLES-MANUAL Performing Organization Address City/State/ZIP Code Phon e Number POC [facility] [address] [place] [address] [place] [address] [place] [facility] [address] (ABNORMAL) Glucose, POCT (12/03/2021 5:58 PM CDT) athologist Signature Glucose, POCT, 185 (H) 70 - 140 12/03/2021 [facility] B mg/dL 6:00 PM CDT Site ARTLINE 12/03/2021 P[facility]X 6:00 PM CDT Specimen Anatomical Collection Method Collection Time Receive d Time (Source) Location / / Volume Laterality Blood 12/03/2021 5:58 PM 2 6:00 CDT PM CDT Unknown Provider LAB POCT ORDERABLES-MANUAL Performing Organization Address City/[facility] Code Phon e Number POC [facility] [address] [place] [address] [place] [address] [place] [facility] [address] (ABNORMAL) Glucose, POCT (12/03/2021 4:57 PM CDT) [...] Address City/State/ZIP Code Phon e Number POC [facility] [address] [place] [address] PCLX [facility] [place] [address] [place] [facility] [address] [facility] DX Chest Portable 1 View (12/03/2021 3:47 [...] chest tube. Calcified aorta. Lance Hearn M.D. IM DIAGNOSTIC IMAGING PROC EDURES Patient Status (12/03/2021 3:37 PM CDT) P athologist Signature FIO2 0.40 0.21=AIR 12/03/2021 3:41 STMA PM CDT Device Vent 12/03/2021 3:41 STMA PM CDT Specimen Anatomical Collection Method Collection Time Receive d Time (Source) Location / / Volume Laterality Blood 12/03/2021 3:37 PM 2 3:41 CDT PM CDT Lance Hearn M.D. LAB BLOOD NON ADD-ON Performing Organization Address City/State/ZIP Code Phon e Number [facility] - 200 [place], [place] [address] [place] [id number] [facility] (ABNORMAL) Blood Gas without Coox, Arterial (12/03/2021 [...] Organization Address City/State/ZIP Code Phon e Number [facility] - 200 [place], [place] [address] [place] [address] Fibrinogen (12/03/2021 3:36 PM CDT) athologist Signature Fibrinogen, P 218 200 - 393 12/03/2021 STMA mg/dL 3:49 PM CDT Specimen Anatomical Collection Method Collection Time Receive d Time (Source) Location / / Volume Laterality Blood (Blood, 12/03/2021 3:36 PM 12/04/19 22 3:40 Arterial) CDT PM CDT Lance Hearn M.D. LAB BLOOD ADD-ON Performing Organization Address City/State/ZIP Code Phon e Number [facility] - 200 [place], [place] [address] [place] [address] (ABNORMAL) Prothrombin Time (PT) (12/03/2021 3:36 PM CDT) [facility] Method Time Signature Prothrombin 15.1 (H) 9.4 - 12.5 12/03/2021 [facility] Time, P sec 3:49 PM CDT INR 1.4 0.9 - 1.1 12/03/2021 [facility] 3:49 PM CDT Comment: ----ADDITIONAL INFORMATION---- Standard intensity warfarin therapeutic range: 2.0 to 3.0 ?? High intensity warfarin therapeutic rang e: 2.5 to 3.5 Specimen Anatomical Collection Method Collection Time Receive d Time (Source) Location / / Volume Laterality Blood (Blood, 12/03/2021 3:36 PM 12/04/19 22 3:40 Arterial) CDT PM CDT Lance Hearn M.D. LAB BLOOD ADD-ON Performing Organization Address City/[facility]/ZIP Code Phon e Number [facility] - [address] APTT (Activated Partial Thromboplastin Time) (12/03/2021 3:36 PM CDT) athologist Signature Activated 29 25 - 37 sec 12/03/2021 [facility] Partial 3:51 PM CDT Thrombopl Time, P Specimen Anatomical Collection Method Collection Time Receive d Time (Source) Location / / Volume Laterality Blood (Blood, 12/03/2021 3:36 PM 12/04/19 22 3:40 Arterial) CDT PM CDT Lance Hearn M.D. LAB BLOOD ADD-ON Performing Organization Address City/[facility]/ZIP Code Phon e Number [facility] [address] (ABNORMAL) CBC without Differential (12/03/2021 3:36 PM CDT) [facility] Method Time Signature Hemoglobin 12.1 (L) 13.2 [...] M.D. LAB BLOOD ADD-ON Performing Organization Address City/[facility]/ZIP Code Phon e Number [facility] - 200 [place] [address] [address] (ABNORMAL) Lactate (12/03/2021 3:36 PM CDT) P athologist Signature Lactate, P 6.0 (H) 0.5 - 2.2 12/03/2021 STMA mmol/L 3:59 PM CDT Specimen Anatomical Collection Method Collection Time Receive d Time (Source) Location / / Volume Laterality Blood (Blood, 12/03/2021 3:36 PM 12/04/19 22 3:40 Venous) CDT PM CDT Lance Hearn M.D. LAB BLOOD NON ADD-ON Performing Organization Address City/[facility]/ZIP Code Phon e Number [facility] - [address] (ABNORMAL) Basic Metabolic Panel (12/03/2021 3:36 PM CDT) P athologist Signature Potassium, P 3.8 3.6 - [...] 4:00 PM CDT eGFR-Black/Afri 73 >=60 12/03/2021 [facility] can [place]ian mL/min/BSA 4:00 PM CDT Comment: ----ADDITIONAL INFORMATION---- Estimated GFR calculated using the 2009 CKD_EPI creatinine equation. eGFR Non-Black/ 63 >=60 mL/min/BSA 4:00 PM CDT [facility] Comment: ----ADDITIONAL INFORMATION---- Estimated GFR calculated using the 2009 CKD_EPI creatinine equation. Calcium, Total, P 7.8 (L) 8.8 - 10.2 mg/dL 12/03/2021 4:00 PM CDT STMA Glucose, P 176 (H) 70 - 140 mg/dL 12/03/2021 4:00 PM CDT S TMA Specimen Anatomical Collection Method Collection Time Receive d Time (Source) Location / / Volume Laterality Blood (Blood, 12/03/2021 3:36 PM 12/04/19 3:40 Arterial) CDT PM CDT Lance Hearn M.D. LAB BLOOD ADD-ON Performing Organization Address City/State/ZIP Code Phon e Number [facility] - [address] [place], [place] [address] [facility] [place] [address] [facility] [address] (ABNORMAL) Glucose, POCT [...] Address City/State/ZIP Code Phon e Number POC [facility] [address] [place] [address] [facility] [place] [address] [place] [facility] [address] [facility] (JODI) - INTRAOPERATIVE WITH COLOR (PROBE NOT PLACED) (12/03/2021 2:50 PM CDT) athologist Signature Ejection MC CV EIMS Fraction Anatomical Region Laterality Modality Echocardiography Specimen (Source) Anatomical Collection Method Collection Time Re ceived Time Location / / Volume Laterality 12/03/2021 6:39 AM CDT Impressions 12/03/2021 3:26 PM CDT PROCEDURETransesophageal echocardiogram performed at the request of the primary clinical services assistant. Transesophageal echocardiogram completed without complications. PRE-BYPASS:Pre-bypass left [...] performed at the request of the primary clinical services assistant. Transesophageal echocardiogram completed without complications. PRE-BYPASS:Pre-bypass left [...] 2:33 CDT PM CDT Karyn Weller APRN, CRNA LAB BLOOD NON ADD-ON Performing Organization Address City/[facility] Phon e Number [facility] - [address] (ABNORMAL) Lactate, B (12/03/2021 2:33 PM CDT) athologist [facility] Lactate, B 4.3 (H) 0.5 - 2.2 12/03/2021 STMA mmol/L 2:35 PM CDT Specimen Anatomical Collection Method Collection Time Receive d Time (Source) Location / / Volume Laterality Blood (Blood, 12/03/2021 2:33 PM 12/04/19 2:33 Venous) CDT PM CDT Ginny Moon M.D. LAB BLOOD NON ADD-ON Performing Organization Address City/State/[facility] Code Phon e Number [facility] - [address] (ABNORMAL) Glucose, Whole Blood (12/03/2021 2:33 PM CDT) athologist Signature Glucose 186 (H) 70 - 140 12/03/2021 STMA mg/dL 2:35 PM CDT Specimen Anatomical Collection Method Collection Time Receive d Time (Source) Location / / Volume Laterality Blood (Blood, 12/03/2021 2:33 PM 12/04/19 2:33 Arterial Line) CDT PM CDT Ginny Moon M.D. LAB BLOOD TROPONIN Performing Organization Address City/[facility]/ZIP Code Phon e Number [facility] - [address] (ABNORMAL) Potassium, Blood (12/03/2021 2:33 PM CDT) athologist Signature Potassium, B 3.5 (L) 3.6 - 5.2 12/03/2021 [facility] mmol/L 2:35 PM CDT Specimen Anatomical Collection Method Collection Time Receive d Time (Source) Location / / Volume Laterality Blood (Blood, 12/03/2021 2:33 PM 12/04/19 22 2:33 Arterial Line) CDT PM CDT Ginny Moon M.D. LAB BLOOD NON ADD-ON Performing Organization Address City/[facility]/ZIP Code Phon e Number [facility] - [address] [place] [address] [place] [address] Sodium, B (12/03/2021 2:33 PM CDT) athologist Signature Sodium, B 140 135 - 145 12/03/2021 2:35 STMA mmol/L PM CDT Specimen Anatomical Collection Method Collection Time Receive d Time (Source) Location / / Volume Laterality Blood (Blood, 12/03/2021 2:33 PM 12/04/19 22 2:33 Arterial Line) CDT PM CDT Ginny Moon M.D. LAB BLOOD NON ADD-ON Performing Organization Address City/State/ZIP Code Phon e Number [facility] - [address] [place] [address] [place], [place] [id number] [place] [address] (ABNORMAL) Calcium, Ionized (12/03/2021 2:33 PM CDT) [...] Organization Address City/State/ZIP Code Phon e Number [facility] - 200 [place], [place] [address] [facility] [place] [address] [facility] [address] [facility] (ABNORMAL) Blood Gas with Coox, Arterial (12/03/2021 2:33 PM CDT) P athologist Signature pO2 224 (H) 83 - [...] Organization Address City/State/ZIP Code Phon e Number [facility] - [address] [address] [facility] [address] [facility] Transfuse autologous RBC (Cell Salvage) : (12/03/2021 2:32 PM CDT) Ginny Moon M.D. BLOOD TRANSFUSION ORDERABLES Transfuse autologous RBC (Cell Salvage) : (12/03/2021 2:07 PM CDT) Ginny Moon M.D. BLOOD TRANSFUSION ORDERABLES Patient Status (12/03/2021 1:52 PM CDT) athologist Signature FIO2 1.00 0.21=AIR 12/03/2021 1:52 STMA PM CDT Specimen Anatomical Collection Method Collection Time Receive d Time (Source) Location / / Volume Laterality Blood 12/03/2021 1:52 PM 2 1:52 CDT PM CDT Karyn Weller APRN, CRNA LAB BLOOD NON ADD-ON Performing Organization Address City/State/ZIP Code Phon e Number [facility] - [address] Platelet Count (12/03/2021 1:52 PM CDT) athologist [facility] Platelet Count 167 135 - 317 12/03/2021 STMA x10(9)/L 1:57 PM CDT Specimen Anatomical Collection Method Collection Time Receive d Time (Source) Location / / Volume Laterality Blood (Blood, 12/03/2021 1:52 PM 12/04/19 1:52 Arterial Line) CDT PM CDT Ginny Moon M.D. LAB BLOOD ADD-ON Performing Organization Address City/State/ZIP Code Phon e Number [facility] [address] (ABNORMAL) Prothrombin Time (PT) (12/03/2021 1:52 PM CDT) Patholo gist Method Time Signature Prothrombin 18.8 (H) 9.4 - 12.5 12/03/2021 [facility] Time, P sec 2:08 PM CDT INR [...] M.D. LAB BLOOD ADD-ON Performing Organization Address City/[facility] Phon e Number [facility] - 200 [place], [place] [address] [place] [address] Fibrinogen (12/03/2021 1:52 PM CDT) P athologist Signature Fibrinogen, P 231 200 - 393 12/03/2021 STMA mg/dL 2:08 PM CDT Specimen Anatomical Collection Method Collection Time Receive d Time (Source) Location / / Volume Laterality Blood (Blood, 12/03/2021 1:52 PM 12/04/19 1:52 Arterial Line) CDT PM CDT Ginny Moon M.D. LAB BLOOD ADD-ON Performing Organization Address City/[facility]/ZIP Code Phon e Number [facility] - 200 [place], [place] [address] [facility] [place] [address] APTT (Activated Partial Thromboplastin Time) (12/03/2021 [...] Organization Address City/State/ZIP Code Phon e Number [facility] - [address] [place], [place] [address] [place] [address] [facility] [address] [facility] (ABNORMAL) Glucose, Whole Blood (12/03/2021 1:52 PM CDT) athologist Signature Glucose 205 (H) 70 - 140 12/03/2021 STMA mg/dL 1:55 PM CDT Specimen Anatomical Collection Method Collection Time Receive d Time (Source) Location / / Volume Laterality Blood (Blood, 12/03/2021 1:52 PM 12/04/19 1:52 Arterial Line) CDT PM CDT Ginny Moon M.D. LAB BLOOD TROPONIN Performing Organization Address City/[facility] Code Phon e Number [facility] - [address] [place], [place] [address] [facility] [place] [address] Potassium, Blood (12/03/2021 1:52 PM CDT) athologist Signature Potassium, B 3.7 3.6 - 5.2 12/03/2021 STMA mmol/L 1:55 PM CDT Specimen Anatomical Collection Method Collection Time Receive d Time (Source) Location / / Volume Laterality Blood (Blood, 12/03/2021 1:52 PM 12/04/19 1:52 Arterial Line) CDT PM CDT Ginny Moon M.D. LAB BLOOD NON ADD-ON Performing Organization Address City/State/[facility] Code Phon e Number [facility] - 200 [place], [place] [address] [facility] [place] [address] Sodium, B (12/03/2021 1:52 PM CDT) athologist Signature Sodium, B 138 135 - 145 12/03/2021 1:55 STMA mmol/L PM CDT Specimen Anatomical Collection Method Collection Time Receive d Time (Source) Location / / Volume Laterality Blood (Blood, 12/03/2021 1:52 PM 12/04/19 1:52 Arterial Line) CDT PM CDT Ginny Moon M.D. LAB BLOOD NON ADD-ON Performing Organization Address City/[facility] Phon e Number [facility] - [address] [place] [address] Calcium, Ionized (12/03/2021 1:52 PM CDT) athologist Signature Calcium, 4.95 4.65 - 5.30 12/03/2021 [facility] Ionized, B mg/dL 1:55 PM CDT Specimen Anatomical Collection Method Collection Time Receive d Time (Source) Location / / Volume Laterality Blood (Blood, 12/03/2021 1:52 PM 12/04/19 1:52 Arterial Line) CDT PM CDT Ginny Moon M.D. LAB BLOOD NON ADD-ON Performing Organization Address [facility] Phon e Number [address] (ABNORMAL) Blood Gas with Coox, Arterial [...] Organization Address City/State/ZIP Code Phon e Number [facility] - [address] [place], [place] [address] [facility] [place] [address] (ABNORMAL) Lactate, B (12/03/2021 1:52 PM CDT) P athologist Signature Lactate, B 3.8 (H) 0.5 - 2.2 12/03/2021 [facility] mmol/L 1:55 PM CDT Specimen Anatomical Collection Method Collection Time Receive d Time (Source) Location / / Volume Laterality Blood (Blood, 12/03/2021 1:52 PM 12/04/19 1:52 Venous) CDT PM CDT Ginny Moon M.D. LAB BLOOD NON ADD-ON Performing Organization Address City/[facility]/ZIP Code Phon e Number [facility] - [address] [place], [place] [address] [facility] [place] [address] [facility] [address] [facility] ACT (Activated Clotting Time), POCT (12/03/2021 1:50 PM CDT) P athologist Signature Activated 116 82 - 152 12/03/2021 [facility] Clotting Time sec 1:54 PM CDT Specimen Anatomical Collection Method Collection Time Receive d Time (Source) Location / / Volume Laterality 12/03/2021 1:50 PM 1:54 CDT PM CDT Unknown Provider LAB POCT ORDERABLES - DEVICE Performing Organization Address City/[facility] Phon e Number POC [facility] [address] [place] [address] [place] [address] [place] [facility] [address] [facility] (ABNORMAL) ACT (Activated Clotting Time), POCT (12/03/2021 1:11 PM CDT) athologist Signature Activated 722 (H) 82 - 152 12/03/2021 [facility] Clotting Time sec 1:22 PM CDT Specimen Anatomical Collection Method Collection Time Receive d Time (Source) Location / / Volume Laterality 12/03/2021 1:11 PM 1:23 CDT PM CDT Unknown Provider LAB POCT ORDERABLES - DEVICE Performing Organization Address City/[facility]/ZIP Code Phon e Number POC [facility] [address] [place] [address] [place] [address] [place] [facility] [address] [facility] (ABNORMAL) ACT (Activated Clotting Time), POCT (12/03/2021 12:50 PM CDT) athologist Signature Activated 733 (H) 82 - 152 12/03/2021 [facility] Clotting Time sec 1:00 PM CDT Specimen Anatomical Collection Method Collection Time Receive d Time (Source) Location / / Volume Laterality 12/03/2021 12:50 12/03/2021 1:00 PM CDT PM CDT Unknown Provider LAB POCT ORDERABLES - DEVICE Performing Organization Address City/[facility] Phon e Number POC [facility] [address] [place] [address] [place] [address] [place] [facility] [address] [facility] (ABNORMAL) Glucose, POCT (12/03/2021 12:49 PM CDT) [...] City/State/ZIP Code Phon e Number POC [facility] [address] [place], [place] [address] [place] [address] [place] [facility] [address] [facility] (ABNORMAL) ACT (Activated Clotting Time), POCT (12/03/2021 12:21 PM CDT) P athologist Signature Activated 610 (H) 82 - 152 12/03/2021 [facility] Clotting Time sec 12:29 PM CDT Specimen Anatomical Collection Method Collection Time Receive d Time (Source) Location / / Volume Laterality 12/03/2021 12:21 12/03/2021 PM CDT 12:30 PM CDT Unknown Provider LAB POCT ORDERABLES - DEVICE Performing Organization Address City/[facility]/ZIP Code Phon e Number POC [facility] 200 [place] [address] [place] [address] [place] [facility] [address] [facility] (ABNORMAL) ACT (Activated Clotting Time), POCT (12/03/2021 11:53 AM CDT) athologist Signature Activated 663 (H) 82 - 152 12/03/2021 [facility] Clotting Time sec 12:03 PM CDT Specimen Anatomical Collection Method Collection Time Receive d Time (Source) Location / / Volume Laterality 12/03/2021 11:53 12/03/2021 AM CDT 12:03 PM CDT Unknown Provider LAB POCT ORDERABLES - DEVICE Performing Organization Address City/[facility]/ZIP [facility] Phon e Number POC [facility] 200 [place] [address] [place] [address] [place] [facility] [address] [facility] (ABNORMAL) ACT (Activated Clotting Time), POCT (12/03/2021 11:22 AM CDT) P athologist Signature Activated 791 (H) 82 - 152 12/03/2021 [facility] Clotting Time sec 11:34 AM CDT Specimen Anatomical Collection Method Collection Time Receive d Time (Source) Location / / Volume Laterality 12/03/2021 11:22 12/03/2021 AM CDT 11:34 AM CDT Unknown Provider LAB POCT ORDERABLES - DEVICE Performing Organization Address City/[facility]/ZIP [facility] Phon e Number POC [facility] 200 [place] [address] [place] [address] [facility] [address] [facility] Glucose, Whole Blood (12/03/2021 11:21 AM CDT) athologist Signature Glucose 116 70 - 140 12/03/2021 [facility] mg/dL 11:23 AM CDT Specimen Anatomical Collection Method Collection Time Receive d Time (Source) Location / / Volume Laterality Blood (Blood, 12/03/2021 11:21 12/03/2021 Arterial Line) AM CDT 11:21 AM CDT Dario Wiggins M.D. LAB BLOOD TROPONIN Performing Organization Address City/[facility]/ZIP Code Phon e Number [facility] - 200 [place], [place] [address] [place] [address] [facility] [address] [facility] Potassium, Blood (12/03/2021 11:21 AM CDT) athologist Signature Potassium, B 4.6 3.6 - 5.2 12/03/2021 [facility] mmol/L 11:23 AM CDT Specimen Anatomical Collection Method Collection Time Receive d Time (Source) Location / / Volume Laterality Blood (Blood, 12/03/2021 11:21 12/03/2021 Arterial Line) AM CDT 11:21 AM CDT Dario Wiggins M.D. LAB BLOOD NON ADD-ON Performing Organization Address City/State/ZIP Code Phon e Number [facility] - 200 [place], [place] [address] [place] [address] [facility] [address] [facility] Sodium, B (12/03/2021 11:21 AM CDT) athologist Signature Sodium, B 137 135 - 145 12/03/2021 [facility] mmol/L 11:23 AM CDT Specimen Anatomical Collection Method Collection Time Receive d Time (Source) Location / / Volume Laterality Blood (Blood, 12/03/2021 11:21 12/03/2021 Arterial Line) AM CDT 11:21 AM CDT Dario Wiggins M.D. LAB BLOOD NON ADD-ON Performing Organization Address City/State/ZIP Code Phon e Number [facility] - 200 [place], [place] [address] [place] [address] Calcium, Ionized (12/03/2021 11:21 AM CDT) athologist Signature Calcium, 4.66 4.65 - 5.30 12/03/2021 [facility] Ionized, B mg/dL 11:23 AM CDT Specimen Anatomical Collection Method Collection Time Receive d Time (Source) Location / / Volume Laterality Blood (Blood, 12/03/2021 11:21 12/03/2021 Arterial Line) AM CDT 11:21 AM CDT Dario Wiggins M.D. LAB BLOOD NON ADD-ON Performing Organization Address City/[facility] [facility] Code Phon e Number [address] [place] [id number] (ABNORMAL) Blood Gas with Coox, Arterial (12/03/2021 11:21 AM CDT) athologist Signature pO2 278 (H) 83 - [...] LAB BLOOD NON ADD-ON Performing Organization Address City/[facility]/ZIP Code Phon e Number [facility] - [address] [place], [place] [address] [facility] [place] [address] [facility] [address] [facility] (ABNORMAL) ACT (Activated Clotting Time), POCT (12/03/2021 10:49 AM CDT) athologist Signature Activated 756 (H) 82 - 152 12/03/2021 PCLX Clotting Time sec 11:00 AM CDT Specimen Anatomical Collection Method Collection Time Receive d Time (Source) Location / / Volume Laterality 12/03/2021 10:49 12/03/2021 AM CDT 11:01 AM CDT Unknown Provider LAB POCT ORDERABLES - DEVICE Performing Organization Address [facility] Phon e Number POC [facility] [address] [place] [address] [place] [address] [facility] [address] [facility] (ABNORMAL) Hemoglobin (HGB), POCT (12/03/2021 10:48 AM CDT) athologist Signature Hemoglobin, 13.0 (L) 13.2 - 12/03/2021 PCSM POCT, B 16.6 g/dL 10:54 AM CDT Specimen Anatomical Collection Method Collection Time Receive d Time (Source) Location / / Volume Laterality Blood 12/03/2021 10:48 12/03/2021 AM CDT 10:54 AM CDT Unknown Provider LAB POCT ORDERABLES - DEVICE Performing Organization Address City/[facility]/ZIP [facility] Phon e Number POC [facility] [address] [place], [place] [address] [place] [address] [place] [facility] [address] [facility] Patient Status (12/03/2021 9:22 AM CDT) athologist Signature FIO2 0.60 0.21=AIR 12/03/2021 9:22 STMA AM CDT Specimen Anatomical Collection Method Collection Time Receive d Time (Source) Location / / Volume Laterality Blood 12/03/2021 9:22 AM 9:22 CDT AM CDT Karyn Weller APRN, CRNA LAB BLOOD NON ADD-ON Performing Organization Address City/State/ZIP Code Phon e Number [facility] - [address] [place], [place] [address] [facility] [place] [address] [facility] [address] Lactate, B (12/03/2021 9:22 AM CDT) athologist Signature Lactate, B 0.6 0.5 - 2.2 12/03/2021 STMA mmol/L 9:23 AM CDT Specimen Anatomical Collection Method Collection Time Receive d Time (Source) Location / / Volume Laterality Blood (Blood, 12/03/2021 9:22 AM 12/04/19 9:22 Venous) CDT AM CDT Ginny Moon M.D. LAB BLOOD NON ADD-ON Performing Organization Address City/State/ZIP Code Phon e Number [facility] - [address] [place], [place] [address] [facility] [place] [address] [facility] [address] Glucose, Whole Blood (12/03/2021 9:22 AM CDT) athologist Signature Glucose 93 70 - 140 12/03/2021 9:23 STMA mg/dL AM CDT Specimen Anatomical Collection Method Collection Time Receive d Time (Source) Location / / Volume Laterality Blood (Blood, 12/03/2021 9:22 AM 12/04/19 9:22 Arterial Line) CDT AM CDT Ginny Moon M.D. LAB BLOOD TROPONIN Performing Organization Address City/State/ZIP Code Phon e Number [facility] - [address] [place], [place] [address] [facility] [place] [address] [facility] [address] Potassium, Blood (12/03/2021 9:22 AM CDT) athologist Signature Potassium, B 3.9 3.6 - 5.2 12/03/2021 STMA mmol/L 9:23 AM CDT Specimen Anatomical Collection Method Collection Time Receive d Time (Source) Location / / Volume Laterality Blood (Blood, 12/03/2021 9:22 AM 12/04/19 9:22 Arterial Line) CDT AM CDT Ginny Moon M.D. LAB BLOOD NON ADD-ON Performing Organization Address City/[facility]/ZIP Code Phon e Number [facility] - [address] [place] [address] Sodium, B (12/03/2021 9:22 AM CDT) athologist Signature Sodium, B 138 135 - 145 12/03/2021 9:23 STMA mmol/L AM CDT Specimen Anatomical Collection Method Collection Time Receive d Time (Source) Location / / Volume Laterality Blood (Blood, 12/03/2021 9:22 AM 12/04/19 9:22 Arterial Line) CDT AM CDT Ginny Moon M.D. LAB BLOOD NON ADD-ON Performing Organization Address City/[facility]/ZIP Code Phon e Number [facility] - [address] [place], [place] [address] [place] [address] (ABNORMAL) Calcium, Ionized (12/03/2021 9:22 AM CDT) athologist Signature Calcium, 4.18 (L) 4.65 - 12/03/2021 STMA Ionized, B 5.30 mg/dL 9:23 AM CDT Specimen Anatomical Collection Method Collection Time Receive d Time (Source) Location / / Volume Laterality Blood (Blood, 12/03/2021 9:22 AM 12/04/19 9:22 Arterial Line) CDT AM CDT Ginny Moon M.D. LAB BLOOD NON ADD-ON Performing Organization Address City/[facility]/ZIP Code Phon e Number [facility] - [address] [place] [address] [place] [address] [facility] [address] [facility] (ABNORMAL) Blood Gas with Coox, Arterial [...] Organization Address City/State/ZIP Code Phon e Number [facility] - [address] [place] [address] [place] [address] [facility] [address] [facility] ACT (Activated Clotting Time), POCT (12/03/2021 9:02 AM CDT) athologist Signature Activated 128 82 - 152 12/03/2021 PCLX Clotting Time sec 9:05 AM CDT Specimen Anatomical Collection Method Collection Time Receive d Time (Source) Location / / Volume Laterality 12/03/2021 9:02 AM 9:05 CDT AM CDT Unknown Provider LAB POCT ORDERABLES - DEVICE Performing Organization Address City/State/ZIP Code Phon e Number POC [facility] [address] [place] [address] PCLX [facility] [address] [place] [facility] [address] documented in this encounter Visit Diagnoses Diagnosis 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 Artery Disease With Stable [place] na (HCC) Preoperative Examination 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 Debility Abnormal Gait Non Orthopedic 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) Coronary Artery Disease With Stable [place] na (HCC) Preoperative Examination Cardiovascular Coronary Artery Disease With Stable [place] na (HCC) Preoperative Examination Cardiovascular documented in this encounter Admitting Diagnoses Diagnosis Coronary Artery Disease With Stable [place] na (HCC) Preoperative Examination Cardiovascular 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) documented in this encounter Administered Medications Inactive Administered Medications - up to 3 most recent administrations Medication Order MAR Action Action Date Dose Rate Site acetaminophen tablet 1,000 mg Given 12/08/2021 6:01 AM CDT 1,000 mg (TYLENOL) 1,000 mg, oral, Every 6 hours, First dose (after last modification) on Thu12/06/21 at 1200 Given 12/08/2021 12:08 AM CDT 1,000 mg Given 12/07/2021 5:06 PM CDT 1,000 mg albuterol nebulizer solution 2.5 mg 2.5 mg, nebulization, Every 6 hours PRN, wheezing, shortness of breath, Starting on Thu12/03/21 at 1524, Albuterol nebs were interchanged for albuterol/levalbuterol MDI (same frequency) amiodarone tablet 200 mg (PACERONE) Given 12/08/2021 9:16 AM CDT 200 mg 200 mg, oral, 2 times daily, First dose on Thu12/07/21 at 2100, For 4 days Given 12/07/2021 8:43 PM CDT 200 mg amiodarone tablet 200 mg (PACERONE) 200 mg, oral, Daily, First dose on Thu12/11/21 at 0900 , For 30 days amLODIPine tablet 10 mg (NORVASC) Given 12/08/2021 9:16 AM CDT 10 mg 10 mg, oral, Daily, First dose (after last modification) on Thu12/07/21 at 0900 Given 12/07/2021 8:44 AM CDT 10 mg aspirin chewable tablet 81 mg Given 12/08/2021 9:16 AM CDT 81 mg 81 mg, oral, Daily, First dose on Thu12/04/21 at 0900 Given 12/07/2021 8:44 AM CDT 81 mg Given 12/06/2021 8:36 AM CDT 81 mg atorvastatin tablet 40 mg (LIPITOR) Given 12/07/2021 8:43 PM CDT 40 mg 40 mg, oral, Daily at bedtime, First dose on Thu12/04/21 at 2100 Given 12/06/2021 8:58 PM CDT 40 mg Given 12/05/2021 8:45 PM CDT 40 mg benzocaine-menthoL 15-3.6 mg per lozenge 1 lozenge (CEPACOL) 1 lozenge, oral, As needed, sore throat, Starting on u12/03/[address] tablet 10 mg (DULCOLAX) 10 mg, oral, 2 times daily PRN, constipation, Starting on Thu12/07/21 at 1045, Swallow whole. Do NOT crush, chew, or split tablet. bisacodyL suppository 10 mg (DULCOLAX) 10 mg, rectal, Daily PRN, constipation, Starting on Thu12/03/21 at 1524, If no bowel movement for 72 hours clopidogreL tablet 75 mg (PLAVIX) Given 12/08/2021 [...] by zofran, Starting on Thu12/04/21 at 0842 ezetimibe tablet 10 mg (ZETIA) Given 12/07/2021 5:06 PM CDT 10 mg 10 mg, oral, Every evening, First dose on Thu12/04/21 at 1800 Given 12/06/2021 5:01 PM CDT 10 mg Given 12/05/2021 6:28 PM CDT 10 mg furosemide tablet 20 mg (LASIX) Given 12/08/2021 9:17 AM CDT 20 mg 20 mg, oral, 2 times daily, First dose on Thu12/06/21 at 0900 Given 12/07/2021 5:06 PM CDT 20 mg Given 12/07/2021 8:44 AM CDT 20 mg HYDROmorphone (PF) injection 0.2 mg Given 12/04/2021 6:21 AM CDT 0.2 mg (DILAUDID) 0.2 mg, intravenous, Every 10 min PRN, moderate pain or score 4-6 of 10, severe pain or score 7-10 of 10, Starting on Thu12/03/21 at 2151, Notify service before administration. Given 12/04/2021 3:45 AM CDT 0.2 mg Given 12/03/2021 11:58 PM CDT 0.2 mg isosorbide mononitrate 24 hr tablet 30 mg Given 12/08/2021 9:15 AM CDT 30 mg (IMDUR) 30 mg, oral, Daily, First dose (after last modification) on Thu12/05/21 at 0900, Do NOT crush or chew. Given 12/07/2021 8:44 AM CDT 30 mg Given 12/06/2021 8:35 AM CDT 30 mg lactulose solution 20 g (CHRONULAC) Given 12/06/2021 11:38 AM CDT 20 g 20 g, oral, As needed, constipation, Starting on Thu12/03/21 at 1524, If no result from bisacodyl suppository melatonin tablet 3 mg Given 12/07/2021 8:43 PM CDT 3 mg 3 mg, oral, Daily at bedtime, First dose on Thu12/06/21 at 2100 Given 12/06/2021 8:58 PM CDT 3 mg metoprolol tablet 37.5 mg (LOPRESSOR) Given 12/08/2021 9:15 AM CDT 37.5 mg 37.5 mg, oral, 2 times daily, First dose (after last modification) on Thu12/08/21 at 0900, Hold for HR < 60 or SBP < 100 naloxone injection 0.2 mg (NARCAN) 0.2 mg, intravenous, As needed, respirat ory depression, Starting on Thu12/03/21 at 1524, For RASS Score -4 or less, respiratory rate of l ess than 8 breaths/min. Notify provider/service and rapid response team (if av ailable at institution). oxyCODONE IR tablet 2.5 mg (ROXICODONE) 2.5 mg, oral, Every 4 hours PRN, moderat e pain or score 4-6 of 10, Starting on Thu12/04/21 at 2257, Patient is able to take oral medicatio ns. oxyCODONE IR tablet 5 mg (ROXICODONE) 5 [...] Given 12/06/2021 7:08 AM CDT 40 mg papaverine 300 mg in NaCl 0.9% 100 mL flush Given 12/03/2021 12:56 PM CDT 30 mL solution 100 mL, other, Once in surgery, OR use only, Starting on Thu12/03/21 at 0714, For 1 dose, Intra-Op, *For Flush Use Only* polyethylene glycol powder packet 17 g Given 12/06/2021 8:35 AM CDT 17 g (MIRALAX) 17 g, oral, Daily, First dose (after last modification) on Thu12/05/21 at 0900, If no bowel movement for 48 hours Avoid mixing with starch-based thickened liquids. Given 12/05/2021 9:24 AM CDT 17 g sennosides-docusate sodium 8.6-50 mg per Given 12/08/2021 9: 25 AM CDT 2 tablets tablet 2 tablet (SENOKOT-S) 2 tablet, oral, 2 times daily, First dose on Thu12/03/21 at 2100 Given 12/07/2021 8:43 PM CDT 2 tablets Given 12/06/2021 8:35 AM CDT 2 tablets simethicone chewable tablet 125 mg (MYLI CON) 125 mg, oral, Every 6 hours PRN, flatulence, Starting on Thu12/03/21 at 1524 tamsulosin 24 hr capsule 0.4 mg (FLOMAX) Given 12/08/2021 9:17 AM CDT 0.4 mg 0.4 mg, oral, Daily, First dose on Thu12/05/21 at 2030, Swallow whole. Do NOT crush, chew or open capsule. Given 12/07/2021 8:44 AM CDT 0.4 mg Given 12/06/2021 8:36 AM CDT 0.4 mg vancomycin powder Given 12/03/2021 2:02 PM CDT 1 g As needed, Starting on Thu12/03/21 at 1402, Intra-Op documented in this encounter Active and Recently Administered Medications Times are shown in CDT. Scheduled Medication Order 12/06/2021 12/07/2021 12/08/2021 acetaminophen tablet 1,000 mg (TYLENOL) 1127 (Given - Provider: Teri Babb R.N.)4888 (Given - Provider: Kristen Rodriguez RStefano)2310 (Given - Provider: Rosaura Almeida D.N.P., R.N.) 0602 (Given - Provider: Spencer Penny R.N.)1147 (Given - Provider: Kristen Rodriguez R.N.)1706 (Given - Provider: Kristen Rodriguez R.N.) 0008 (Given - Provider: Yadi Ramon R.N.)0601 (Given - Provider: aYdi Ramon R.N.)1200 (Due) 1,000 mg, oral, Every 6 hours, First dos e (after last modification) on Thu12/06/21 at 1200 amiodarone tablet 200 mg (PACERONE) (CANCELED) 0836 (Woody iven - Provider: Kristen Rodriguez R.N.)2057 (Given [...] 0837 (Giv en - Provider: Kristen Rodriguez RStefano) 5 mg, oral, Once, On Thu12/06/21 at [...] Yadi Arriaza R.N.) 2042 (Given - Provider: Renee FinkNShanice) 40 mg, oral, Daily at bedtime, First dose on Thu12/04/[address] tablet 10 mg (DULCOLAX) (CANCELED) 36 ( Given - Provider: Kristen Rodriguez R.N.)2058 (Not Given - Provider: Yadi Arriaza R.N. - Reason: Patient/family refused) 48 (Not Given - Provider: Kristen esposito RShaniceNShanice - Reason: Patient/family refused) 10 mg, oral, 2 times daily, First dose o n Gayatri 12/05/21 at 2100, Swallow whole. Do NOT crush, chew, or split tablet. clopidogreL tablet 75 mg (PLAVIX) 0836 (Given - Provid er: Kristen Rodriguez R.N.) 0844 (Given - Provider: Kristen Rodriguez R.N.) 0917 (Given - Provider: Kristen Rodriguez R.N.) 75 mg, oral, Daily, First dose on Thu12/04/21 at 0900 colchicine tablet 0.3 mg (COLCRYS) 0835 (Given - Provi scott: Renee RichardsonN.) 0844 (Given - Provider: Renee RichardsonN.) 0915 (Given - Provider: Kristen Rodriguez RShaniceNShanice) 0.3 mg, oral, Daily, First dose on Gayatri 12/05/21 at 0900 ezetimibe tablet 10 mg (ZETIA) 1700 (Given - Provider: Erum Rodriguez RShaniceNShanice) 1706 (Given - Provider: Kristen Rodriguez R.N.) 10 mg, oral, Every evening, First dose on Thu12/04/21 at 1800 furosemide tablet 20 mg (LASIX) 0837 (Given - Provider : Kristen Rodriguez R.N.)1702 (Given - Provider: Kristen Rodriguez R.N.) 0844 (Given - Provider: Kevon Richardson.N.)170 (Given - Provider: Kristen Rodriguez R.N.) 0917 (Given - Provider: Kristen Rodriguez R.N.) 20 mg, oral, 2 times daily, First dose on Thu12/06/21 at 0900 isosorbide mononitrate 24 hr tablet 30 mg (IMDUR) 0835 (Given - Provider: Kristen Rodriguez R.N.) 0844 (Given - Provider: Kristen Rodriguez R.N.) 0915 (Given - Provider: Kristen Rodriguez RShaniceN.) 30 mg, oral, Daily, First dose (after la st modification) on Thu12/05/21 at 0900, Do NOT crush or chew. melatonin tablet 3 mg 2057 (Given - Provider: Yadi pollard RShaniceNShanice) 2042 (Given - Provider: Yadi Ramon RShaniceNShanice) 3 mg, oral, Daily at bedtime, First dose on Thu12/06/21 at 2100 metoprolol tablet 37.5 mg (LOPRESSOR) 914 (Given - Provider: Kristen Rodriguez R.NShanice) 37.5 mg, oral, 2 times daily, First dose (after last modification) on Thu12/08/21 at 0900, Hold for HR < 60 or SBP < 100 metoprolol tartrate tablet 25 mg (LOPRESSOR) (CANCELED ) 36 (Given - Provider: Kristen Rodriguez RShaniceN.)2057 (Given - Provider: Renee ArreolaNShanice) 0844 (Given - Provider: Kristen Rodriguez RShaniceNShanice)2042 (Given - Provider: Yadi Ramon R.N.) 25 mg, oral, 2 times daily, First [...] Kristen Rodriguez R.N.) 0602 (Given - Provider: Spencer Penny R.N.) 0602 (Woody iven - Provider: Yadi Ramon RStefano) 40 mg, oral, Daily before breakfast, Fir st dose on Thu12/06/21 at 0700, Swallow whole. Do NOT crush, chew, or split tablet. polyethylene glycol powder packet 17 g (MIRALAX) 0835 (Given - Provider: Kristen Rodriguez R.N.) 0848 (Not Given - Provider: Kristen esposito R.N. - Reason: Patient/family refused) 0927 (Not Given - Provider: Renee RayN. - Reason: Patient/family refused) 17 g, oral, Daily, First dose (after las t modification) on Thu12/05/21 at 0900, If no bowel movement for 48 hours Avoid mixing with starch-based thickened liquids. potassium chloride ER tablet 20 mEq (KLORCON/K-TAB) (COMPLET ED) 0844 (Given - Provider: Kristen Rodriguez R.N.) 20 mEq, oral, Once, On 12/07/21 at 07 30, For 1 dose, potassium chloride orderable was interchanged for potassium chloride tablet/capsule Swallow whole. Do NOT crush, chew, or split tablet. sennosides-docusate sodium 8.6-50 mg per tablet 2 tabl et (SENOKOT-S) 0835 (Given - Provider: Kristen Rodriguez RStefano)2058 (Not Given - Provider: Yadi Arriaza RShaniceNShanice - Reason: Patient/family refused) 0849 (Not Given - Provider: Kristen Rodriguez R.N. - Reason: Patient/family refused)2042 (Given - Provider: Yadi Ramon RShaniceNShanice) 0925 (Given - Provider: Kristen gonzalez RShaniceNShanice) 2 tablet, oral, 2 times daily, First dose on Thu12/03/21 at 2100 tamsulosin 24 hr capsule 0.4 mg (FLOMAX) 0836 (Given - Provider: Kristen Rodriguez R.N.) 0844 (Given - Provider: Renee RichardsonNShanice) 0917 (Given - Provider: Kristen Rodriguez RShaniceNShanice) [...]
--- OUTSIDE RECORDS SUMMARY | 2022-05-16 12:20 | XMS_ITS | Encounter Summary ---
:1945 Author Organization [facility] Address [address] [place] [address] Care Team Providers Name Role Phone Unavailable Primary Care Provider Unavailable Reason for Visit Appointment Request (Routine) - Closed Specialty Diagnoses / Procedures Referred By Contact Refer red To Contact Cardiovascular Surgery Referral ID Status Reason Start Date Expiration Date Visits Requ ested Visits Authorized [id number] Closed 11/13/2021 11/13/2022 1 Encounter Details Date Type Department Care Team Description 12/02/2021 Education Department of Cardiovascular Fam Chairez, Surgery in [place], [place] R.N. [address] [facility] [address] [place] [address] [place], [place] [phone] Social History Tobacco Use Types Packs/Day Years [...] or relatives? How often do you attend orthodoxy or anglican 1 to 4 times per year 11/08/2021 services? Do you belong to any clubs or organizations Yes 11/08/2021 such as orthodoxy groups, unions, fraternal or athletic groups, or [...] documented as of this encounter Progress Notes Radha Chairez R.N. - 12/02/2021 12:15 PM CDT Mr. Angel Doran is a 76 y.o. male who was seen for pre-op education prior to surgery. Pre-op education and instructions were provided to Mr. Doran and his , Bria, and daughter, Destiny. They indicate understanding of all teaching at this time and all questions were answered. Visitor policy was discussed in detail with Mr. Doran, Bria, and Destiny. They understand that there may be up to five visitors during the hospital stay - with two allowed on campus at a time. Theyalso understand that visiting hours are from 6:00 a.m. to 9:00 p.m. with no overnight visitors allowed. Visitors are aware they need to be appropriately masked at all times while on [facility] campuses. Visitor policy is subject to change. Social Work: Pre-operatively the NAIMA-7 and PHQ9 scores were reviewed. NAIMA-7 questionnaire was not completed by the time of this appointment and PHQ-9 score was 0 and indicates no need for a social workconsult at this time. PT/OT: Barnes index score was 6, patient is independent in all activities of daily living, and indicates no need for a PT/OT consult at this time. I discussed plans for discharge with Mr. Doran, he plans to discharge Home. Early Screen for Discharge Planning (ESDP) score was 6 and indicates no need for a care management consult at this time. Nodischarge needs were identified at time of pre-op appointment. Patient is not identified as a candidate for the Remote Patient Monitoring program. Radha Chairez R.N. documented in this encounter Plan of Treatment Not on filedocumented as of this encounter Visit Diagnoses Not on filedocumented in this encounter Additional Health Concerns Infection Onset Date Last Indicated Resolved Time COVID19 Pending 12/02/2021 12/02/2021 12/02/2021 1:31 PM CDT Assessment Noted Time PHQ-9 Depression Total Score: 10 11/27/2021 1:28 PM CD T documented as of this encounter
--- OUTSIDE RECORDS SUMMARY | 2022-05-16 12:21 | XMS_ITS | Encounter Summary ---
:1945 Author Organization [facility] Address [address] [place] [address] Care Team Providers Name Role Phone Unavailable Primary Care Provider Unavailable Encounter Details Date Type Department Care Team Description 12/02/2021 Hospital Encounter Department of Latosha Machado, Castillo ry Artery Disease With Stable Angina (HCC); Laboratory Medicine ACCOUNT SERVICES MANAGER, C.N.P. Ischemic Heart Chronic Disease; and Pathology, [address] [place] [address] Preoperative Examination Cardiovascular; [facility], in [place], [place] Lighthe adedness; Printer, [phone] Fatigue; [place] [phone] Other Chest Pain; [address] [place] [address] (Work) Rhinitis Chronic [place], [place] [phone] [address] (Fax) [phone] Social History Tobacco Use Types Packs/Day Years [...] often do you attend jehovah's witness or christian 1 to 4 times per year 11/08/2021 [...] place to sleep or slept in a group home (including now)? Education Answer Date Recorded What is the highest level of school you have completed or 12 th grade 11/08/2021 the highest degree you have received? Sex Assigned at Date Recorded Male 11/08/2021 12:12 PM CDT documented as of this encounter Medications at Time of Discharge Medication Sig Dispensed Refills Start Date End Date acetaminophen (TYLENOL) Take 2 tablets (1,000 0 0 12/08/2021 500 mg tablet mg total) by mouth every 6 (six) hours. atorvastatin (LIPITOR) Take 1 tablet by 0 017 40 mg tablet mouth every evening. polyethylene glycol Take 1 packet (17 g 0 022 (MIRALAX) 17 gram total) by mouth daily powder packet as needed for constipation. Dissolve each 17 g dose in 240 mLs (8 ounces) of beverage. sennosides-docusate Take 2 tablets by 0 2 sodium (SENOKOT-S) mouth 2 (two) times a 8.6-50 mg per tablet day as needed for constipation. tamsulosin (FLOMAX) 0.4 Take 0.4 mg by mouth 0 mg 24 hr capsule every evening. amiodarone (PACERONE) Take 1 tablet (200 mg 38 tablet 0 05/202203/07/2022 200 mg tablet total) by mouth 2 (two) times a day for 4 days, THEN 1 tablet (200 mg total) daily. amLODIPine (NORVASC) 10 Take 1 tablet (10 mg 30 tablet 0 03/07/2022 mg tablet total) by mouth daily. amLODIPine (NORVASC) 5 Take 1 tablet (5 mg 30 tablet 11 10/2712/08/2021 mg tablet total) by mouth daily. aspirin 81 mg chewable Chew 4 tablets (324 4 tablet 0 10/2712/03/2021 tablet mg total) once for 1 dose. Take morning of procedure. cholecalciferol Take 1 tablet by 0 06/09/201102/2022 (VITAMIN D3) 50 mcg mouth daily. (2,000 Unit) tablet clopidogreL (PLAVIX) 75 Take 1 tablet (75 mg 30 tablet 0 12/09/2021 mg tablet total) by mouth daily. ezetimibe (ZETIA) 10 mg Take 1 tablet (10 mg 90 tablet 3 03/07/2022 tablet total) by mouth daily. furosemide (LASIX) 20 Take 1 tablet (20 mg 7 tablet 0 11/2703/07/2022 mg tablet total) by mouth daily for 7 days. isosorbide mononitrate Take 1 tablet (30 mg 30 tablet 0 12/09/2021 (IMDUR) 30 mg 24 hr total) by mouth tablet daily. losartan (COZAAR) 100 Take 1 tablet by 0 04/17/20 15 12/08/2021 mg tablet mouth daily. metoprolol succinate Take 1 tablet by 0 7 12/08/2021 (TOPROL-XL) 25 mg 24 hr mouth every evening. tablet metoprolol tartrate Take 1.5 tablets 90 tablet 0 12/08/2021 03/07/2022 (LOPRESSOR) 25 mg (37.5 mg total) by tablet mouth 2 (two) times a day. colchicine (COLCRYS) Take 0.5 tablets (0.3 21 tablet 0 11/2712/08/2021 0.6 mg tablet mg total) by mouth daily. nitroglycerin Place 1-2 tablets 100 tablet 1 11/05/202111/27 (NITROSTAT) 0.4 mg SL (0.4-0.8 mg total) tablet under the tongue every 5 (five) minutes as needed for chest pain. Place 1 tab under tongue at first sign of angina. Repeat in 5 min until relief. Max 3 tab/15 min sildenafil (REVATIO) 20 Take 1-5 tablets by 0 12/03/2021 mg tablet mouth as directed. Take 1-5 pills one hour before sexual intercourse on an empty stomach. Do not take Nitorglycerin after taking this drug traMADol (ULTRAM) 50 mg Take 1 tablet by 0 201512/08/2021 tablet mouth every 6 (six) hours as needed (Back pain). Rarely uses documented as of this encounter Plan of Treatment Not on filedocumented as of this encounter Procedures Procedure Name Priority Date/Time Associated Diagnosis Comme nts PROTHROMBIN TIME Routine 12/02/2021 8:02 AM Coronary Artery Re sults for this (PT), P CDT Disease With Stable procedur e are in Angina (HCC) the results section. CBC WITHOUT Routine 12/02/2021 8:02 AM Coronary Artery Result s for this DIFFERENTIAL, B CDT Disease With Stable proce dure are in Angina (HCC) the results section. TYPE AND SCREEN Routine 12/02/2021 8:02 AM Coronary Artery Res ults for this CDT Disease With Stable procedur e are in Angina (HCC) the results section. THYROID-STIMULATING Routine 12/02/2021 8:02 AM Coronary Artery Results for this HORMONE-SENSITIVE CDT Disease With Stable pro cedure are in (S-TSH) Angina (HCC) the results Ischemic Heart section. Chronic Disease Preoperative Examination Cardiovascular Lightheadedness Fatigue Other Chest Pain Rhinitis Chronic BASIC METABOLIC Routine 12/02/2021 8:02 AM Coronary Artery Res ults for this PANEL, S/P CDT Disease With Stable procedur e are in Angina (HCC) the results section. documented in this encounter Results Type and Screen (with reflex Antibody ID) (12/02/2021 8:02 AM CDT) [facility] Method Time Signature ABORh O Pos Not 12/02/2021 ETRM applicable 5:11 PM CDT Antibody Negative Negative 12/02/2021 ETRM Screen 5:29 PM CDT Type & Screen 01/30/2022 12/02/2021 ETRM Expiration 23:59 5:11 PM CDT Testing Patricio DEFAULT 12/02/2021 ETRM Location 8:56 AM CDT Specimen Anatomical Collection Method Collection Time Receive d Time (Source) Location / / Volume Laterality Blood (Blood, 12/02/2021 8:02 AM 12/03/19 8:56 Venous) CDT AM CDT Latosha Machado APRN, C.N.P. LAB BLOOD BANK TEST ORDERABL ES Performing Organization Address City/State/ZIP Code Phon e Number [facility] - [address] [place], [place] [address] [facility] [place] [address] Laboratories-[facility] [address] (ABNORMAL) Basic Metabolic Panel (12/02/2021 8:02 AM CDT) Analysis Performed At Patho logist Time Signature Potassium, S 4.5 3.6 - 5.2 12/02/2021 DTL mmol/L 9:18 AM CDT Sodium, S 139 135 - 145 12/02/2021 DTL mmol/L 9:18 AM CDT Chloride, S 105 98 - 107 12/02/2021 DTL mmol/L 9:18 AM CDT Bicarbonate, S 25 22 - 29 12/02/2021 DTL mmol/L 9:18 AM CDT Anion Gap 9 7 - 15 12/02/2021 DTL 9:18 AM CDT BUN (Blood Urea 27 (H) 8 - 24 12/02/2021 DTL Nitrogen), S mg/dL 9:18 AM CDT Creatinine 1.48 (H) 0.74 - 12/02/2021 DTL 1.35 mg/dL 9:18 AM CDT eGFR-Non 45 (L) >=60 12/02/2021 DTL Black/ mL/min/BSA 9:18 AM CDT [place] Island[place] Comment: ----ADDITIONAL INFORMATION---- Estimated GFR calculated using the 2009 CKD_EPI creatinine equation. eGFR-Black/ 52 (L) >=60 mL/min/BSA 2021 9:18 AM CDT DTL Comment: ----ADDITIONAL INFORMATION---- Estimated GFR calculated using the 2009 CKD_EPI creatinine equation. Calcium, Total, S 9.0 8.8 - 10.2 mg/dL 12/02/2021 9:18 AM CDT DTL Glucose, S 95 70 - 140 mg/dL 12/02/2021 9:18 AM CDT D TL Specimen Anatomical Collection Method Collection Time Receive d Time (Source) Location / / Volume Laterality Blood (Blood, 12/02/2021 8:02 AM 12/03/19 22 8:42 Venous) CDT AM CDT Latosha Machado APRN, Mikel.N.P. LAB BLOOD ADD-ON Performing Organization Address City/[facility] Phon e Number [facility] - [address] [place], [place] [address] [facility] [place], [place] [phone] [place] [address] CBC without Differential (12/02/2021 8:02 AM CDT) P athologist Signature Hemoglobin 14.5 13.2 - 12/02/2021 DHPM 16.6 g/dL 9:46 AM CDT Hematocrit 42.7 38.3 - 12/02/2021 DHPM 48.6 % 9:46 AM CDT Erythrocytes 4.72 4.35 - 12/02/2021 DHPM 5.65 9:46 AM CDT x10(12)/L MCV 90.5 78.2 - 12/02/2021 DHPM 97.9 fL 9:46 AM CDT RBC Distrib Width 13.2 11.8 - 12/02/2021 DHPM 14.5 % 9:46 AM CDT Platelet Count 247 135 - 317 12/02/2021 DHPM x10(9)/L 9:46 AM CDT Leukocytes 5.1 3.4 - 9.6 12/02/2021 DHPM x10(9)/L 9:46 AM CDT Specimen Anatomical Collection Method Collection Time Receive d Time (Source) Location / / Volume Laterality Blood (Blood, 12/02/2021 8:02 AM 12/03/19 22 8:26 Venous) CDT AM CDT Latosha Machado APRN, C.N.P. LAB BLOOD ADD-ON Performing Organization Address City/State/[facility] Phon e Number [facility] - [address] [place], [place] [address] [facility] [place] [address] [facility] [address] [facility] Prothrombin Time (PT) (12/02/2021 8:02 AM CDT) P athologist Signature Prothrombin 12.3 9.4 - 12.5 12/02/2021 DTL Time, P sec 9:06 AM CDT INR 1.1 0.9 - 1.1 12/02/2021 DTL 9:06 AM CDT Comment: ----ADDITIONAL INFORMATION---- Standard intensity warfarin therapeutic range: 2.0 to 3.0 ?? High intensity warfarin therapeutic rang e: 2.5 to 3.5 Specimen Anatomical Collection Method Collection Time Receive d Time (Source) Location / / Volume Laterality Blood (Blood, 12/02/2021 8:02 AM 12/03/19 22 8:26 Venous) CDT AM CDT Latosha Machado APRN, C.N.P. LAB BLOOD ADD-ON Performing Organization Address [facility] Phon e Number [facility] - [phone] [place] [address] S-TSH (Thyroid-Stimulating Hormone - Sensitive) (12/02/2021 8:02 AM CDT) P athologist Signature TSH, Sensitive 1.7 0.3 - 4.2 12/02/2021 DTL mIU/L 9:18 AM CDT Specimen Anatomical Collection Method Collection Time Receive d Time (Source) Location / / Volume Laterality Blood (Blood, 12/02/2021 8:02 AM 12/03/19 22 8:42 Venous) CDT AM CDT Latosha Machado APRN, C.N.P. LAB BLOOD ADD-ON Performing Organization Address City/[facility] Phon e Number [facility] - [phone] [place] [address] documented in this encounter Visit Diagnoses Diagnosis Coronary Artery Disease With Stable Omaira na (HCC) Ischemic Heart Chronic Disease Preoperative Examination Cardiovascular Lightheadedness Fatigue Other Chest Pain Rhinitis Chronic documented in this encounter Additional Health Concerns Infection Onset Date Last Indicated Resolved Time COVID19 Pending 12/02/2021 12/02/2021 12/02/2021 1:31 PM CDT Assessment Noted Time PHQ-9 Depression Total Score: 10 11/27/2021 1:28 PM CD T documented as of this encounter
--- OUTSIDE RECORDS SUMMARY | 2022-05-16 12:21 | XMS_ITS | Encounter Summary ---
:1945 Author Organization [facility] Address [address] [place] [address] Care Team Providers Name Role Phone Unavailable Primary Care Provider Unavailable Encounter Details Date Type Department Care Team Description 11/13/2021 Ancillary Procedure Department of Dermatology Social History Tobacco Use Types Packs/Day Years [...] or relatives? How often do you attend confucianist or rastafarian 1 to 4 times per year 11/08/2021 services? Do you belong to any clubs or organizations Yes 11/08/2021 such as confucianist groups, unions, fraternal or athletic groups, or [...] place to sleep or slept in a fpc (including now)? Education Answer Date Recorded What is the highest level of school you have completed or 12 th grade 11/08/2021 the highest degree you have received? Sex Assigned at Date Recorded Male 11/08/2021 12:12 PM CDT documented as of this encounter Plan of Treatment Not on filedocumented as of this encounter Procedures Procedure Name Priority Date/Time Associated Comments Diagnosis DERMATOLOGY IMAGE Routine 11/13/2021 12:00 Result s for this EXAM AM CDT procedure are i n the results section. documented in this encounter Results Nose 510 Dermoscopy-Dermatology Image Exam (11/13/2021 12:00 AM CDT) Specimen (Source) Anatomical Location Collection Method / Collectio n Time Received Time / Laterality Volume Narrative IIMS - 11/13/2021 4:44 PM CDT This order has been created [...]
--- OUTSIDE RECORDS SUMMARY | 2022-05-16 12:21 | XMS_ITS | Encounter Summary ---
:1945 Author Organization [facility] Address [address] [place] [address] Care Team Providers Name Role Phone Unavailable Primary Care Provider Unavailable Encounter Details Date Type Department Care Team Description 11/28/2021 Clinical Communication [facility] Main Phar luis e Lee, [address] [place], [place] Pharm.D., R.Ph. [address] Social History Tobacco Use Types Packs/Day Years [...] How often do you attend methodist or buddhist 1 to 4 times per year 11/08/2021 [...] place to sleep or slept in a penitentiary (including now)? Education Answer Date Recorded What is the highest level of school you have completed or 12 th grade 11/08/2021 the highest degree you have received? Sex Assigned at Date Recorded Male 11/08/2021 12:12 PM CDT documented as of this encounter Miscellaneous Notes Telephone Encounter - Zachariah Lee, Pharm.D., R.Ph. - 11/28/2021 2:38 PM CDT I was unable to connect with Angel Doran for their scheduled appointment today to completetheir pre-surgical medication history. A message was left requesting that they be prepared to discuss their current medications with their providers at their next clinic appointment. A contact number for the Patient Appointment Services Specialist was left if they had additional questions regarding their appointments. documented in this encounter Plan of Treatment Not on filedocumented as of this encounter Visit Diagnoses Not on filedocumented in this encounter Additional Health Concerns Assessment Noted Time PHQ-9 Depression Total Score: 10 11/27/2021 1:28 PM CD T documented as of this encounter
--- OUTSIDE RECORDS SUMMARY | 2022-05-16 12:21 | XMS_ITS | Encounter Summary ---
:1945 Author Organization [facility] Address [address] [place] [address] Care Team Providers Name Role Phone Unavailable Primary Care Provider Unavailable Reason for Referral Outpatient (Routine) - Closed Specialty Diagnoses / Procedures Referred By Contact Refer red To Contact Diagnoses Coronary Artery Disease With Stable Angina (HCC) Latosha Machado APRN, [facility] Procedures DX Chest AP or PA and Lateral 2 Views C.N.P. [address] [place], [place] [phone] Referral ID Status Reason Start Date Expiration Date Visits Requ ested Visits Authorized [id number] Closed 11/13/2021 11/13/2022 1 1 Reason for Visit Outpatient (Routine) - Closed Specialty Diagnoses / Procedures Referred By Contact Refer red To Contact Diagnoses Coronary Artery Disease With Stable Angina (HCC) Latosha Machado APRN, [facility] Procedures DX Chest AP or PA and Lateral 2 Views C.N.P. [address] [place], [place] [phone] Referral ID Status Reason Start Date Expiration Date Visits Requ ested Visits Authorized [id number] Closed 11/13/2021 11/13/2022 1 1 Encounter Details Date Type Department Care Team Description 12/02/2021 Hospital Encounter Department of Latosha Machado, Castillo ry Artery Radiology, Tasha AMATO, C.N.P. Disease With Stable [facility], in [address] Angina (HCC) [place], [place] [address] [address] [place], [place] [phone] [address] (Work) [phone] Social History Tobacco Use Types Packs/Day Years [...] or relatives? How often do you attend latter day or pentecostal 1 to 4 times per year 11/08/2021 services? Do you belong to any clubs or organizations Yes 11/08/2021 such as latter day groups, unions, fraternal or athletic groups, or [...] 81 mg daily. 0 tablet atorvastatin (LIPITOR) Take 1 tablet by 0 [...] tablet mouth 2 (two) times a day. mupirocin (BACTROBAN) 2 Apply 1 application 22 g 0 11/202112/08/2021 % ointment topically 2 (two) times a day. Place pea-sized amount in each nostril night before and morning of surgery. colchicine (COLCRYS) Take 0.5 tablets (0.3 21 [...] CHEST AP OR PA RAD - Routine 12/02/2021 10:43 Coronary Artery Re sults for this AND LATERAL 2 (most inpatients AM CDT Disease With procedure are in VIEWS and all Stable Angina the results outpatients) (HCC) section. documented in this encounter Results DX Chest AP or PA and Lateral 2 Views (12/02/2021 10:43 AM CDT) Anatomical Region Laterality Modality Chest, Thoracic RST LOS, Thoracic ARZ LOS, Thoracic N/A Digital Radiography FLA LOS Specimen (Source) Anatomical Collection Method Collection Time Re ceived Time Location / / Volume Laterality 12/02/2021 10:44 AM CDT Impressions 12/02/2021 10:45 AM CDT No significant change since 11/04/2021. Left midlung and bibasilar atelectasis and/or scarring. Aortic calcifications. Coronar y stents. Multilevel spondylotic changes. Height loss and wedging of a midthoracic vertebral body. Narrative 12/02/2021 10:45 AM CDT EXAM: ??DX CHEST AP OR PA AND LATERAL 2 VIEWS Procedure Note Gaston Figueroa M.D. - 12/02/2021Forma tting of this note might be different from the original. EXAM: DX CHEST AP OR PA AND LATERAL 2 EWS IMPRESSION: No significant change since 11/04/2021. Left midlung and bibasilar atelectasis and/or scarring. Aortic calcifications. Coronar y stents. Multilevel spondylotic changes. Height loss and wedging of a midthoracic vertebral body. Latosha Machado APRN, C.N.P. IMG DIAGNOSTIC IMAGING PROCE JULIO CÉSAR documented in this encounter Visit Diagnoses Diagnosis Coronary Artery Disease With Stable Omaira na (HCC) documented in this encounter Additional Health Concerns Infection Onset Date Last Indicated Resolved Time COVID19 Pending 12/02/2021 12/02/2021 12/02/2021 1:31 PM CDT Assessment Noted Time PHQ-9 Depression Total Score: 10 11/27/2021 1:28 PM CD T documented as of this encounter
--- OUTSIDE RECORDS SUMMARY | 2022-05-16 12:21 | XMS_ITS | Encounter Summary ---
:1945 Author Organization [facility] Address [address] [place] [address] Care Team Providers Name Role Phone Unavailable Primary Care Provider Unavailable Reason for Referral Outpatient (Routine) - Closed Specialty Diagnoses / Procedures Referred By Contact Refer red To Contact Diagnoses Coronary Artery Disease With Stable Angina (HCC) Ischemic Heart Chronic Disease Preoperative Examination Cardiovascular Lightheadedness Fatigue [facility] US Carotid Bilateral C.N.P. [address] [place], [place] [phone] Referral ID Status Reason Start Date Expiration Date Visits Requ ested Visits Authorized [id number] Closed 11/13/2021 11/13/2022 1 1 Reason for Visit Outpatient (Routine) - Closed Specialty Diagnoses / Procedures Referred By Contact Refer red To Contact Diagnoses Coronary Artery Disease With Stable Angina (HCC) Ischemic Heart Chronic Disease Preoperative Examination Cardiovascular Lightheadedness Fatigue Latosha Machado APRN, [facility] Procedures US Carotid Bilateral C.N.P. [address] [place], [place] [address] Referral ID Status Reason Start Date Expiration Date Visits Requ ested Visits Authorized [id number] Closed 11/13/2021 11/13/2022 1 1 Encounter Details Date Type Department Care Team Description 11/28/2021 Hospital Encounter Department of Latosha Machado, Castillo ry Artery Disease With Stable Angina (HCC); Radiology, Ramiro AMATO C.N.P. Ischemic Heart Chronic Disease; Building, in [address] [facility] Preoperative Examination Cardiovascular; [place], [place] Danna saba; [place] [address] Fatigue [address] [facility] [phone] [place], [place] (Work) [phone] Social History Tobacco Use Types Packs/Day Years [...] or relatives? How often do you attend christianity or yazdanism 1 to 4 times per year 11/08/2021 services? Do you belong to any clubs or organizations Yes 11/08/2021 such as christianity groups, unions, fraternal or athletic groups, or [...] 1 tablet (20 mg 7 tablet 0 06/07/202103/07/2022 mg tablet total) by mouth daily for [...] tablet mouth 2 (two) times a day. aspirin [address] Take 1 tablet by 0 07/24/2010 0 12/02/2021 tablet mouth daily. colchicine (COLCRYS) Take 0.5 tablets (0.3 21 [...] Procedure Name Priority Date/Time Associated Comments Diagnosis US CAROTID RAD - Routine 11/28/2021 9:52 Coronary Artery Results for this BILATERAL (most inpatients AM CDT Disease With procedure a re in and all Stable Angina the results outpatients) (HCC) section. Ischemic Heart Chronic Disease Preoperative Examination Cardiovascular Lightheadedness Fatigue documented in this encounter Results US Carotid Bilateral (11/28/2021 9:52 AM CDT) Anatomical Region Laterality Modality Head and Neck, Ultrasound RST LOS, Ultrasound ARZ LOS, Bilat eral Ultrasound Neuroradiology FLA LOS Specimen (Source) Anatomical Collection Method Collection Time Re ceived Time Location / / Volume Laterality 11/28/2021 9:58 AM CDT Impressions 11/28/2021 10:01 AM CDT Moderate atheromatous plaque in the carotid bifurcations with no significant carotid stenosis Narrative 11/28/2021 10:01 AM CDT EXAM: US CAROTID BILATERAL Exam performed with color and spectral D oppler analysis. COMPARISON: None FINDINGS: RIGHT: There is moderate calcified plaqu e in the carotid bifurcation. The narrowing in the right ICA is less than 50 percent. No significant CCA, ICA, or ECA stenosis. Antegrade vertebral artery flow. LEFT: There is moderate calcified plaque in the carotid bifurcation. The narrowing in the left ICA is less than 50 percent. No significant CCA, ICA, or ECA stenosis. Antegrade vertebral artery flow. VELOCITIES (cm/sec) Right CCA *psv: ??66 cm/s Right ICA psv: 87 cm/s Right ICA edv: 23 cm/s Right ECA psv: 96 cm/s Right ICA/CCA: 1.3 Left CCA *psv: 68 cm/s Left ICA psv: 68 cm/s Left ICA edv: ??21 cm/s Left ECA psv: ??73 cm/s Left ICA/CCA: 1.0 *mid/distal (non-diseased) Measurement of a carotid stenosis, if pr esent, is based on velocity parameters that compare the residual internal carotid luminal diamet er with that of the normal distal ICA in accordance with [place] Symptomatic Carotid Endar terectomy Trial (NASCET). Procedure Note Lior Leyva M.D. - 11/28/2021Formatti ng of this note might be different from the original. EXAM: US CAROTID BILATERAL Exam performed with color and spectral D oppler analysis. COMPARISON: None FINDINGS: RIGHT: There is moderate calcified plaqu e in the carotid bifurcation. The narrowing in the right ICA is less than 50 percent. No significant CCA, ICA, or ECA stenosis. Antegrade vertebral artery flow. LEFT: There is moderate calcified plaque in the carotid bifurcation. The narrowing in the left ICA is less than 50 percent. No significant CCA, ICA, or ECA stenosis. Antegrade vertebral artery flow. VELOCITIES (cm/sec) Right CCA *psv: 66 cm/s Right ICA psv: 87 cm/s Right ICA edv: 23 cm/s Right ECA psv: 96 cm/s Right ICA/CCA: 1.3 Left CCA *psv: 68 cm/s Left ICA psv: 68 cm/s Left ICA edv: 21 cm/s Left ECA psv: 73 cm/s Left ICA/CCA: 1.0 *mid/distal (non-diseased) Measurement of a carotid stenosis, if pr esent, is based on velocity parameters that compare the residual internal carotid luminal diamet er with that of the normal distal ICA in accordance with [place] Symptomatic Carotid Endar terectomy Trial (NASCET). IMPRESSION: Moderate atheromatous plaque in the laird tid bifurcations with no significant carotid stenosis Latosha Machado APRN, C.N.P. IMG US PROCEDURES documented in this encounter Visit Diagnoses Diagnosis Coronary Artery Disease With Stable Omaira na (HCC) Ischemic Heart Chronic Disease Preoperative Examination Cardiovascular Lightheadedness Fatigue documented in this encounter Additional Health Concerns Assessment Noted Time PHQ-9 Depression Total Score: 10 11/27/2021 1:28 PM CD T documented as of this encounter
--- OUTSIDE RECORDS SUMMARY | 2022-05-16 12:21 | XMS_ITS | Encounter Summary ---
:1945 Author Organization [facility] Address [address] [place] [address] Care Team Providers Name Role Phone Unavailable Primary Care Provider Unavailable Reason for Visit Appointment Request (Routine) - Closed Specialty Diagnoses / Procedures Referred By Contact Refer red To Contact Cardiovascular Surgery Diagnoses Coronary Artery Disease (Unspecified) Sd Arce M.D. [address] [place] [address] Referral ID Status Reason Start Date Expiration Date Visits Requ ested Visits Authorized [id number] Closed 11/20/2021 11/20/2022 1 Encounter Details Date Type Department Care Team Description 11/20/2021 Comprehensive Visit Department of Aníbal Wiggins Heart Cardiovascular Dario Short, Disease Of Na tive Surgery in [place]lesia Curry Coronary Artery [place] [address] Without Angina [address] Pectoris (Primary Dx) [facility] [id number] [place] [phone] Social History Tobacco Use Types Packs/Day Years [...] How often do you attend zoroastrian or yazidi 1 to 4 times per [...] place to sleep or slept in a detention (including now)? Education Answer Date Recorded What is the highest level of school you have completed or 12 th grade 11/08/2021 the highest degree you have received? Sex Assigned at Date Recorded Male 11/08/2021 12:12 PM CDT documented as of this encounter Last Filed Vital Signs Vital Sign Reading Time Taken Comments Blood Pressure 148/71 11/20/2021 3:29 PM CDT Pulse 60 11/20/2021 3:29 PM CDT Temperature - - Respiratory Rate - - Oxygen Saturation - - Inhaled Oxygen Concentration - - Weight 93.8 kg (206 lb 12.7 oz) 11/20/2021 3:29 PM CDT Height 182.9 cm (6') 11/20/2021 3:29 PM CDT Body Mass Index 28.05 11/20/2021 3:29 PM CDT documented in this encounter Consult Notes Dario Wiggins M.D. - 11/20/2021 3:30 PM CDT Angel Doran : 1945 Visit Date: 11/20/21 REFERRING PHYSICIAN: Sd Arce M.D. REASON FOR REFERRAL SUBJECTIVE Adult ACT Score: REASON FOR CONSULT : Coronary artery disease HISTORY OF PRESENT ILLNESS Angel Doran is a 76 y.o. male that presents for consultation of coronary artery disease. The patient was found to have triple-vessel coronary artery disease and was fully evaluated in a meticulous manner by my partner Dr. Arce. The patient was scheduled to have surgery in November, but given Dr. Arce is leaving for vacation shortly after the patient's operation, he wishes to consider switching surgeons in order that his provider is in town during his recovery. Dr. Arce performed an excellent analysis and this is provided in his clinical note. No past medical history on file. Past Surgical History: Procedure Laterality Date ??? CATH ANGIOGRAM N/A 11/11/2021 Procedure: Coronary Angiography; Surgeon: Von Crawford M.D.; Location: [facility] ??? CORONARY ANGIOPLASTY WITH STENT PLACEMENT N/A 10/02/2005 >Percutaneous transluminal coronary angioplasty of the mid LAD, placement of a Cypher drug-eluting stent in No family history on file. Social History Tobacco Use Smoking Status Former Smoker Smokeless Tobacco Never Used Current Medications: ??? amLODIPine (NORVASC) 5 mg tablet, Take 1 tablet (5 mg total) by mouth daily. ??? aspirin [address] tablet, Take 1 tablet by mouth daily. ??? aspirin 81 mg chewable tablet, Chew 4 tablets (324 mg total) once for 1 dose. Take morning of procedure. ??? atorvastatin (LIPITOR) 40 mg tablet, Take 1 tablet by mouth daily. ??? cholecalciferol (VITAMIN D3) 50 mcg (2,000 Unit) tablet, Take 1 tablet by mouth daily. ??? ezetimibe (ZETIA) 10 mg tablet, Take 1 tablet (10 mg total) by mouth daily. ??? losartan (COZAAR) 100 mg tablet, Take 1 tablet by mouth daily. ??? metoprolol succinate (TOPROL-XL) 25 mg 24 hr tablet, Take 1 tablet by mouth daily. ??? nitroglycerin (NITROSTAT) 0.4 mg SL tablet, [...] take Nitorglycerin after taking this drug ??? tamsulosin (FLOMAX) 0.4 mg 24 hr capsule, Take 1 capsule by mouth daily. ??? traMADol (ULTRAM) 50 mg tablet, Take 1 tablet by mouth as needed. Unknown VITALS SIGNS Vitals: 11/20/21 1529 BP: 148/71 Patient Position: Sitting Pulse: 60 Height: 182.9 cm Weight: 93.8 kg Body mass index is 28.05 kg/m??. IMAGING /Diagnostics: I have reviewed the patient's current laboratory, imaging, and other diagnostic studies. LABS Lab Results Component Value Date HCT 42.7 11/11/2021 ASSESSMENT / PLAN #1 - coronary artery disease We discussed the risks, benefits and expected outcomes of surgery as did Dr. Arce prior. The patient understands the critical issues. We will obtain the testing the Dr. Arce had planned and we will move his surgical date to my calendar. All questions were answered. Thank you for the opportunity to participate in the care of this patient. Dario Wiggins M.D. documented in this encounter Plan of Treatment Not on filedocumented as of this encounter Visit Diagnoses Diagnosis Atherosclerotic Heart Disease Of [place] Coronary Artery Without Angina Pectoris - Primary documented in this encounter
--- OUTSIDE RECORDS SUMMARY | 2022-05-16 12:21 | XMS_ITS | Encounter Summary ---
:1945 Author Organization [facility] Address [address] [place] [id number] Care Team Providers Name Role Phone Unavailable Primary Care Provider Unavailable Reason for Referral Outpatient (Routine) - Authorized Specialty Diagnoses / Procedures Referred By Contact Refer red To Contact Dermatology Diagnoses Malignant Neoplasm Of Nose Basal Cell [facility] 1-4 sites Alesia Welsh [address] [place] [address] Referral ID Status Reason Start Date Expiration Date Visits V isits Requested Authorized [id number] Authorized 2021 2022 1 1 Encounter Details Date Type Department Care Team Description 2021 Orders Only Department of [facility] Neop lasm Of Nose Basal Cell (Primary Dx); [facility]at[facility] (COVID-19); [place], [place] Alesia Negative COVID-19 Test (Contact With And (Suspected) Exposure To COVID-19) 200 [facility] [address] [place] [phone] (Wo rk) Social History Tobacco Use Types [...] How often do you attend mormonism or sabianism 1 to 4 times per year 11/08/2021 [...] place to sleep or slept in a half-way (including now)? Education Answer Date Recorded What is the highest level of school you have completed or 12 th grade 11/08/2021 the highest degree you have received? Sex Assigned at Date Recorded Male 11/08/2021 12:12 PM CDT documented as of this encounter Plan of Treatment Scheduled Orders Name Type Priority Associated Diagnoses Order S cheilenele [facility] 1-4 sites Dermatology Routine Malignant Neoplasm Of Expected: 12/03/2021 Nose Basal Cell (Approximate ), Expires: 2022 documented as of this encounter Visit Diagnoses Diagnosis Malignant Neoplasm Of Nose Basal Cell - Primary Encounter For Preprocedural Laboratory E xamination (COVID-19) Negative COVID-19 Test (Contact With And (Suspected) Exposure To COVID-19) documented in this encounter
--- OUTSIDE RECORDS SUMMARY | 2022-05-16 12:21 | XMS_ITS | Encounter Summary ---
:1945 Author Organization [facility] Address [address] [place] [address] Care Team Providers Name Role Phone Unavailable Primary Care Provider Unavailable Reason for Referral Outpatient (Routine) - Closed Specialty Diagnoses / Procedures Referred By Contact Refer red To Contact Diagnoses Coronary Artery Disease With Stable Angina (HCC) Ischemic Heart Chronic Disease Preoperative Examination Cardiovascular Latosha Machado APRN [place] [facility] on Procedures US Lower Extremity Veins Bilateral Mapping C.N.P. [address] [place], [place] [address] Referral ID Status Reason Start Date Expiration Date Visits Requ ested Visits Authorized [id number] Closed 11/13/2021 11/13/2022 1 1 Reason for Visit Outpatient (Routine) - Closed Specialty Diagnoses / Procedures Referred By Contact Refer red To Contact Diagnoses Coronary Artery Disease With Stable Angina (HCC) Ischemic Heart Chronic Disease Preoperative Examination Cardiovascular Latosha Machado APRN, [place] [facility] on Procedures US Lower Extremity Veins Bilateral Mapping C.N.P. [address] [place], [place] [address] Referral ID Status Reason Start Date Expiration Date Visits Requ ested Visits Authorized [id number] Closed 11/13/2021 11/13/2022 1 1 Encounter Details Date Type Department Care Team Description 11/28/2021 Hospital Encounter Department of Latosha Machado, [place] ry Artery Disease With Stable Angina (HCC); Radiology, Ramiro AMATO C.N.P. Ischemic Heart Chronic Disease; Building, in 200 [facility] Preoperative Examination Cardiovascular [facility] [address] [facility] [phone] [place], [place] (Work) [phone] Social History Tobacco Use Types Packs/Day Years [...] or relatives? How often do you attend mandaen or congregational 1 to 4 times per year 11/08/2021 services? Do you belong to any clubs or organizations Yes 11/08/2021 such as mandaen groups, unions, fraternal or athletic groups, or [...] Procedure Name Priority Date/Time Associated Diagnosis Comme [facility] LOWER RAD - Routine 11/28/2021 9:45 Coronary Artery Results for EXTREMITY VEINS (most inpatients AM CDT Disease With Stable t his procedure BILATERAL and all Angina (HCC) are in the MAPPING outpatients) Ischemic Heart results Chronic Disease section. Preoperative Examination Cardiovascular documented in this encounter Results US Lower Extremity Veins Bilateral Mapping (11/28/2021 9:45 AM CDT) Anatomical Region Laterality Modality Lower Extremity, Ultrasound RST LOS, Ultrasound ARZ LOS, Tre ateral Ultrasound Ultrasound FLA LOS, Procedural Specimen (Source) Anatomical Collection Method Collection Time Re ceived Time Location / / Volume Laterality 11/28/2021 9:54 AM CDT Impressions 11/28/2021 9:56 AM CDT Sonographic vein mapping with measuremen ts per full report. Narrative 11/28/2021 9:56 AM CDT EXAM: US LOWER EXTREMITY VEINS BILATERAL MAPPING Exam performed with color and spectral D oppler analysis. COMPARISON: None FINDINGS: RIGHT Great Saphenous Vein Saphenofemoral Junction: 5.4 mm Upper Thigh: 2.3 mm Mid Thigh: 2.4 mm Lower Thigh: 2.9 mm Knee: 2.4 mm Upper Calf: 2.1 mm Mid Calf: 1.2 mm Lower Calf: 2.7 mm Ankle: 2.3 mm LEFT Great Saphenous Vein Saphenofemoral Junction: 11.6 mm Upper Thigh: 3.7 mm Mid Thigh: 2.1 mm Lower Thigh: 2.0 mm Knee: 2.0 mm Upper Calf: 2.4 mm Mid Calf: 3.4 mm Lower Calf: 3.1 mm Ankle: 2.5 mm Procedure Note Lior Leyva M.D. - 11/28/2021Formatti ng of this note might be different from the original. EXAM: US LOWER EXTREMITY VEINS BILATERAL MAPPING Exam performed with color and spectral D oppler analysis. COMPARISON: None FINDINGS: RIGHT Great Saphenous Vein Saphenofemoral Junction: 5.4 mm Upper Thigh: 2.3 mm Mid Thigh: 2.4 mm Lower Thigh: 2.9 mm Knee: 2.4 mm Upper Calf: 2.1 mm Mid Calf: 1.2 mm Lower Calf: 2.7 mm Ankle: 2.3 mm LEFT Great Saphenous Vein Saphenofemoral Junction: 11.6 mm Upper Thigh: 3.7 mm Mid Thigh: 2.1 mm Lower Thigh: 2.0 mm Knee: 2.0 mm Upper Calf: 2.4 mm Mid Calf: 3.4 mm Lower Calf: 3.1 mm Ankle: 2.5 mm IMPRESSION: Sonographic vein mapping with measuremen ts per full report. Latosha Machado APRN, C.N.P. IMG US PROCEDURES documented in this encounter Visit Diagnoses Diagnosis Coronary Artery Disease With Stable [place] na (HCC) Ischemic Heart Chronic Disease Preoperative Examination Cardiovascular documented in this encounter Additional Health Concerns Assessment Noted Time PHQ-9 Depression Total Score: 10 11/27/2021 1:28 PM CD T documented as of this encounter
--- OUTSIDE RECORDS SUMMARY | 2022-05-16 12:21 | XMS_ITS | Encounter Summary ---
:1945 Author Organization [facility] Address [address] [place] [address] Care Team Providers Name Role Phone Unavailable Primary Care Provider Unavailable Reason for Referral Outpatient (Routine) - Closed Specialty Diagnoses / Procedures Referred By Contact Refer red To Contact Diagnoses Coronary Artery Disease With Stable Angina (HCC) Ischemic Heart Chronic Disease Preoperative Examination Cardiovascular Lightheadedness Fatigue Latosha Machado APRN, [place] [facility] Procedures US Carotid Bilateral C.N.P. [address] [place], [place] [phone] Referral ID Status Reason Start Date Expiration Date Visits Requ ested Visits Authorized [id number] Closed 11/13/2021 11/13/2022 1 1 Outpatient (Routine) - Closed Specialty Diagnoses / Procedures Referred By Contact Refer red To Contact Diagnoses Coronary Artery Disease With Stable Angina (HCC) Ischemic Heart Chronic Disease Preoperative Examination Cardiovascular Latosha Machado APRN [place] [facility] Procedures US Lower Extremity Veins Bilateral Mapping C.N.P. [address] [place], [place] [phone] Referral ID Status Reason Start Date Expiration Date Visits Requ ested Visits Authorized [id number] Closed 11/13/2021 11/13/2022 1 1 Outpatient (Routine) - Closed Specialty Diagnoses / Procedures Referred By Contact Refer red To Contact Diagnoses Coronary Artery Disease With Stable Angina (HCC) Ischemic Heart Chronic Disease Preoperative Examination Cardiovascular Latosha Machado APRN, [facility] on Procedures US Radial Arteries C.N.P. [address] [place] [phone] Referral ID Status Reason Start Date Expiration Date Visits Requ ested Visits Authorized [id number] Closed 11/13/2021 11/13/2022 1 1 Outpatient (Routine) - Closed Specialty Diagnoses / Procedures Referred By Contact Refer red To Contact Diagnoses Coronary Artery Disease With Stable Angina (HCC) Latosha Machado APRN, [facility] Procedures DX Chest AP or PA and Lateral 2 Views C.N.P. [address] [place], [place] [phone] Referral ID Status Reason Start Date Expiration Date Visits Requ ested Visits Authorized [id number] Closed 11/13/2021 11/13/2022 1 1 Outpatient (Routine) - Closed Specialty Diagnoses / Procedures Referred By Contact Refer red To Contact Diagnoses Coronary Artery Disease With Stable Angina (HCC) Latosha Machado APRN, [facility] Procedures ECG 12 Lead C.N.P. [address] [place] [phone] Referral ID Status Reason Start Date Expiration Date Visits Requ ested Visits Authorized [id number] Closed 11/13/2021 11/13/2022 1 1 Encounter Details Date Type Department Care Team Description 11/13/2021 Office Visit Department of Latosha Machado, Atherosclero tic [facility] Disease [facility] [place] Coronary Artery Without Angina Pectoris (Primary Dx); Cardiovascular Surgery LIMA, C.N .P. 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 How often do you attend anabaptism or hindu 1 to 4 times per year 11/08/2021 services? Do you belong to any clubs or organizations Yes 11/08/2021 such as anabaptism groups, unions, fraternal or athletic groups, or [...] PM CDT documented as of this encounter Patient Instructions Patient InstructionsLatosha Machado APRN, C.N.P. - 11/13/2021 5:38 PM CDT Please talk to your dentist about any need for dental work prior to surgery. Antiplatelet: Aspirin - continue until day of surgery. I have recommended doing just 81 mg of aspirin daily in the week prior to surgery. Anticoagulation: N/A JOSE ANGEL/ARB: Stop losartan 2 days prior to surgery. Last dose 01/21/2022. Diabetic Medication: N/A Immunosuppression: N/A Stop all NSAIDs, ibuprofen (Advil) or similar medications 3 days prior to surgery. Stop all vitamins, fish oil, and supplements 7 days prior to surgery. No other medication changes are recommended. If any new medications are initiated, medical changes arise, or you have a positive COVID test or exposure, you are responsible for contacting the surgical team. Please do not schedule any vaccines within 2 weeks before or after surgery. We do not recommend scheduling surgery in between COVID-19 vaccinations. documented in this encounter Progress Notes Latosha Machado APRN, C.N.P. - 11/13/2021 4:30 PM CDT Angel Doran : 1945 Visit Date: 11/13/21 The patient was seen in consultation with Dr. Arce. The patient has been scheduled for coronary artery bypass grafting (possible KAI, possible SVG, possible radial artery- left, patient is right hand dominant and had angiogram through the right wrist) with Dr. Arce with a surgical date of 01/24/2022. Intraoperative orders were placed. 1. The required preoperative testing has been ordered to be completed prior to surgery. This includes: Labs: CBC, BMP, COVID PCR, PT/INR, Type & Screen (early) and TSH Tests: CXR, ECG, US Lower Extremity Veins Bilateral (vein mapping), US Upper Extremity Arteries Bilateral (radial mapping) and US Carotid Arteries Cardiac Catheterization: Previously completed on 11/11/2021, images available in Qreads Consultations: Pharmacy Medication Consult A Pre-operative appointment will be scheduled with the [facility] and RN Team prior to surgery. Please also schedule a visit with the surgeon to discuss grafts. 2. Patient denies any allergies to penicillin and contrast dye. 3. The patient's most recent known hemoglobin is 14.8 g/dL on 11/11/21. The patient does not need an anemia clinic work up. 4. Does patient currently smoke? No 5. COVID swab ordered per [facility] order set for 1-2 days prior to surgery. I shared with the patient the outpatient and inpatient visitor policies during the COVID-19 pandemic. 6. Patient reports some dental concerns. He will talk to his dentist about surgery. A dental clearance form has been provided. 7. The following medication instructions were provided to the patient: Antiplatelet: Aspirin - continue until day of surgery. I have recommended doing just 81 mg of aspirin daily in the week prior to surgery. Anticoagulation: N/A JOSE ANGEL/ARB: Stop losartan 2 days prior to surgery. Last dose 01/21/2022. Diabetic Medication: N/A Immunosuppression: N/A Stop all NSAIDs, ibuprofen (Advil) or similar medications 3 days prior to surgery. Stop all vitamins, fish oil, and supplements 7 days prior to surgery. No other medication changes are recommended. If any new medications are initiated, medical changes arise, or you have a positive COVID test or exposure, you are responsible for contacting the surgical team. Please do not schedule any vaccines within 2 weeks before or after surgery. We do not recommend scheduling surgery in between COVID-19 vaccinations. The patient has been provided a complete patient appointment guide prior to leaving clinic today or will view via patient portal. I personally spent 30 minutes in care of the patient today. Time includes both [id number]-face and [id number]-kb-awem patient care. Latosha Machado APRN, C.N.P. documented in this encounter Plan of Treatment Not on filedocumented as of this encounter Results DX Chest AP or [...] Latosha Machado APRN, C.N.P. IMG DIAGNOSTIC IM[facility] ECG 12 Lead (12/02/2021 9:49 AM CDT) P athologist Signature Ventricular Rate 58 BPM MUSE ECG/Min FL Interval 178 ms MUSE QRSD Interval 96 ms MUSE QT Interval 456 ms MUSE QTC Interval 447 ms MUSE P Baker 47 degrees MUSE R Baker 23 degrees MUSE T Wave Baker 46 degrees MUSE Specimen Anatomical Collection Method Collection Time Receive d Time (Source) Location / / Volume Laterality 12/02/2021 9:49 AM 9:58 CDT AM CDT Impressions MUSE - 12/02/2021 9:58 AM CDT Sinus bradycardia Otherwise normal ECG When compared with ECG of 04-NOV-2021 08 :30, No significant change was found Narrative This result has an attachment that is no t available. Procedure Note Fernando Marcos Jr., M.D. - 12/02/2021For matting of this note might be different from the original. IMPRESSION: Sinus bradycardia Otherwise normal ECG When compared with ECG of 04-NOV-2021 08 :30, No significant change was found Latosha Machado APRN, C.N.P. ECG ORDERABLES Performing Organization Address City/[facility]/ZIP Code Phon e Number THEO VENEGAS NA SARS Coronavirus 2, Molecular Detection, PCR, Varies Asymptomatic (12/02/2021 8:18 AM CDT) [facility] Method Time Signature COVID-19, Swab, 12/02/2021 DTL PCR, Source Nasopharynx 1:31 PM CDT COVID-19, Undetected Undetected 12/02/2021 DTL PCR, Result 1:31 PM CDT Comment: SARS-CoV-2 RNA absent. This result does not rule out COVID-19 in the patient, as the sensitivity of the test depends o n the timing of the specimen collection and quality of the specimen. Result should be correlated with patient's history and clinical presentat ion. ----ADDITIONAL INFORMATION---- This RT-PCR test using the [employer] SARS-Co V-2 Assay ( iZoca.) performed on the [employer] Two Module System has received Emergency Use Authorization (EUA) by the U.S. Food and Drug Administration, and is modified from the dye range feeder's instructions with a bridging study. Performance characteristics were verifie d by [facility] in a manner consistent with CLIA requirements. Visit the CDC website: https://www.cdc.g ov/coronavirus/ for the most recent guidelines on [place] virus testing. Fact Sheet for Healthcare Providers: https://www.fda.gov/media/446722/downloa d Fact Sheet for Patients: https://www.fda.gov/media/817845/downloa d Specimen Anatomical Collection Method Collection Time Receive d Time (Source) Location / / Volume Laterality Varies 12/02/2021 8:18 AM 8:56 (Nasopharynx) CDT AM CDT Latosha Machado APRN C.N.P. LAB MICROBIOLOGY - GENERAL O RDERABLES Performing Organization Address City/State/ZIP Code Phon e Number [facility] - [address] [place], [place] [address] [facility] [place] [address] Laboratories-[facility] [address] Type and Screen (with reflex Antibody ID) (12/02/2021 8:02 AM CDT) Patholo gist Method Time Signature ABORh O Pos Not 12/02/2021 ETRM applicable 5:11 PM CDT Antibody Negative Negative 12/02/2021 ETRM Screen 5:29 PM CDT Type & Screen 01/30/2022 12/02/2021 ETRM Expiration 23:59 5:11 PM CDT Testing [place] DEFAULT 12/02/2021 ETRM Location 8:56 AM CDT Specimen Anatomical Collection Method Collection Time Receive d Time (Source) Location / / Volume Laterality Blood (Blood, 12/02/2021 8:02 AM 12/03/19 8:56 Venous) CDT AM CDT Latosha Machado APRN, C.N.P. LAB BLOOD BANK TEST ORDERABL ES Performing Organization Address City/State/ZIP Code Phon e Number [facility] - [address] [place], [place] [address] [facility] [place] [address] [facility] [address] (ABNORMAL) Basic Metabolic Panel (12/02/2021 8:02 AM [...] 12/02/2021 DTL Black/ mL/min/BSA 9:18 AM CDT [place] Comment: ----ADDITIONAL INFORMATION---- Estimated GFR calculated using [...] C.N.P. LAB BLOOD ADD-ON Performing Organization Address City/State/ZIP Code Phon e Number [facility] - [address] [place], [place] [address] [facility] [place] [place] [address] [facility] 200 [facility] CBC without Differential (12/02/2021 8:02 AM CDT) [...] Venous) CDT AM CDT Latosha Machado APRN, DomN.PShanice LAB BLOOD ADD-ON Performing Organization Address City/[facility]/ZIP Code Phon e Number [facility] - [address] [place] [address] [place] [address] Prothrombin Time (PT) (12/02/2021 8:02 AM CDT) [...] Mikel.N.P. LAB BLOOD ADD-ON Performing Organization Address City/[facility]/ZIP Code Phon e Number [facility] - [address] [place] [phone] [address] S-TSH (Thyroid-Stimulating Hormone - Sensitive) (12/02/2021 8:02 AM CDT) athologist Signature TSH, Sensitive 1.7 0.3 - 4.2 12/02/2021 DTL mIU/L 9:18 AM CDT Specimen Anatomical Collection Method Collection Time Receive d Time (Source) Location / / Volume Laterality Blood (Blood, 12/02/2021 8:02 AM 12/03/19 22 8:42 Venous) CDT AM CDT Latosha Machado APRN, Mikel.N.P. LAB BLOOD ADD-ON Performing Organization Address City/[facility]/ZIP Code Phon e Number [facility] - [address] [place] [address] [place] [address] US Carotid Bilateral (11/28/2021 9:52 AM CDT) Anatomical Region Laterality Modality Head and Neck, Ultrasound RST LOS, Ultrasound ARZ LOS, Bilat yadiral Ultrasound Neuroradiology FLA LOS Specimen (Source) Anatomical [...] normal distal ICA in accordance with [place] Symptomatic Carotid Endar terectomy Trial (NASCET). Procedure [...] normal distal ICA in accordance with [place] Symptomatic Carotid Endar terectomy Trial (NASCET). IMPRESSION: Moderate atheromatous plaque in the laird tid bifurcations with no significant carotid stenosis Latosha Machado APRN, C.N.P. IMG US PROCEDURES US Radial Arteries (11/28/2021 9:49 AM CDT) Anatomical Region Laterality Modality Upper Extremity, Ultrasound RST LOS, Ultrasound ARZ LOS, N/A Ultrasound Ultrasound FLA LOS, Procedural Specimen (Source) Anatomical Collection Method Collection Time Re ceived Time Location / / Volume Laterality 11/28/2021 9:53 AM CDT Impressions 11/28/2021 9:57 AM CDT Radial arteries are suitable for graft h arvesting bilaterally. Narrative 11/28/2021 9:57 AM CDT EXAM: US RADIAL ARTERIES Exam performed with color and spectral D oppler analysis. COMPARISON: None FINDINGS: RIGHT: The radial and ulnar arteries are patent. During radial artery compression, there is appropriate increased ulnar artery flow and persistent flow in the thumb and index digital arteries. LEFT: The radial and ulnar arteries are patent. During radial artery compression, there is appropriate increased ulnar artery flow and persistent flow in the thumb and index digital arteries. Procedure Note Lior Leyva M.D. - 11/28/2021Formatti ng of this note might be different from the original. EXAM: US RADIAL ARTERIES Exam performed with color and spectral D oppler analysis. COMPARISON: None FINDINGS: RIGHT: The radial and ulnar arteries are patent. During radial artery compression, there is appropriate increased ulnar artery flow and persistent flow in the thumb and index digital arteries. LEFT: The radial and ulnar arteries are patent. During radial artery compression, there is appropriate increased ulnar artery flow and persistent flow in the thumb and index digital arteries. IMPRESSION: Radial arteries are suitable for graft h arvesting bilaterally. Latosha Machado APRN, C.N.PShanice IMWoody US PROCEDURES US Lower Extremity Veins Bilateral Mapping (11/28/2021 [...] Visit Diagnoses Diagnosis Atherosclerotic Heart Disease Of [place] Coronary Artery Without Angina Pectoris - Primary Coronary Artery Disease With Stable Omaira na (HCC) Ischemic Heart Chronic Disease Preoperative Examination Cardiovascular Lightheadedness Fatigue Other Chest Pain Rhinitis Chronic Coronary Artery Disease With Stable Omaira na (HCC) Ischemic Heart Chronic Disease Preoperative Examination Cardiovascular Coronary Artery Disease With Stable Omaira na (HCC) Ischemic Heart Chronic Disease Preoperative Examination Cardiovascular Coronary Artery Disease With Stable Omaira na (HCC) Ischemic Heart Chronic Disease Preoperative Examination Cardiovascular Lightheadedness Fatigue Coronary Artery Disease With Stable Omaira na (HCC) documented in this encounter
--- OUTSIDE RECORDS SUMMARY | 2022-05-16 12:21 | XMS_ITS | Encounter Summary ---
:1945 Author Organization [facility] Address [address] [place] [address] Care Team Providers Name Role Phone Unavailable Primary Care Provider Unavailable Reason for Visit Appointment Request (Routine) - Closed Specialty Diagnoses / Procedures Referred By Contact Refer red To Contact Cardiovascular Surgery Dario Wiggins M .D. [address] [place] [address] Referral ID Status Reason Start Date Expiration Date Visits Requ ested Visits Authorized [id number] Closed 11/20/2021 11/20/2022 1 Encounter Details Date Type Department Care Team Description 11/20/2021 Office Visit Department of Mira Dacosta Cardiovascular Surgery [place], C.N.P., [place] isease With Stable in [facility] yokasta D.N.PShanice Angina (HCC) (Primary [address] [facility] Dx) [place] [address] [place], [place] [phone] Social History Tobacco Use Types Packs/Day Years [...] or relatives? How often do you attend hinduism or orthodoxy 1 to 4 times per year 11/08/2021 services? Do you belong to any clubs or organizations Yes 11/08/2021 such as hinduism groups, unions, fraternal or athletic groups, or [...] as of this encounter Patient Instructions Patient InstructionsMira Dacosta APRN, C.N.P., D.N.P. - 11/20/2021 4:35 PM CDT The following medication instructions were provided to the patient: Antiplatelet: Aspirin - continue until day of surgery. I have recommended doing just 81 mg of aspirin daily in the week prior to surgery. Starting on 11/26 reduce to 81 mg daily Anticoagulation: N/A JOSE ANGEL/ARB: Stop losartan 2 days prior to surgery. Last dose 11/30/21 Diabetic Medication: N/A Immunosuppression: N/A Stop all [...] vaccinations. documented in this encounter Progress Notes Mira Dacosta APRN, C.NBlaek, D.N.P. - 11/20/2021 4:00 PM CDT Patient seen briefly. The patient was seen by Dr. Wiggins. Scheduled for CABG x [address] Wiggins on 12/03/21. All orders for preop have already been placed by my colleague, Latosha Machado CNP on 11/13/21. Schedule will be altered to reflect the new surgeon and surgical date The following medication instructions were provided to the patient: ?? Antiplatelet: Aspirin - continue until day of surgery. I have recommended doing just 81 mg of aspirin daily in the week prior to surgery. Starting on 11/26 reduce to 81 mg daily ?? Anticoagulation: N/A ?? JOSE ANGEL/ARB: Stop losartan 2 days prior to surgery. Last dose 11/30/21 ?? Diabetic Medication: N/A ?? Immunosuppression: N/A ?? Stop all NSAIDs, ibuprofen (Advil) or similar medications 3 days prior to surgery. ?? Stop all vitamins, fish oil, and supplements 7 days prior to surgery. ?? No other medication changes are recommended. If any new medications are initiated, medical changes arise, or you have a positive COVID test or exposure, you are responsible for contacting the surgical team. ?? Please do not schedule any vaccines within 2 weeks before or after surgery. We do not recommend scheduling surgery in between COVID-19 vaccinations. I personally spent 25 minutes in review of the patient's record today. Time includes non face to face patient care. documented in this encounter Plan of Treatment Not on filedocumented as of this encounter Visit Diagnoses Diagnosis Coronary Artery Disease With Stable Omaira na (HCC) - Primary documented in this encounter
--- OUTSIDE RECORDS SUMMARY | 2022-05-16 12:21 | XMS_ITS | Encounter Summary ---
:1945 Author Organization [facility] Address [address] [place] [address] Care Team Providers Name Role Phone Unavailable Primary Care Provider Unavailable Reason for Visit Appointment Request (Routine) - Closed Specialty Diagnoses / Procedures Referred By Contact Refer red To Contact Cardiovascular Disease Referral ID Status Reason Start Date Expiration Date Visits Requ ested Visits Authorized [id number] Closed 11/11/2021 11/11/2022 1 Encounter Details Date Type Department Care Team Description 11/11/2021 Office Visit Department of Renee Drummond Coronary Arter y Disease With Stable Angina (HCC) (Primary Dx); Cardiovascular Medicine Deja Guzmán Hyperlipidemia On Treatment; in [facility] potato pancake frier 200 [facility] Hypertension And Chronic Kidney Disease Stage 2 [address] [place] [address] [phone] Social History Tobacco Use Types Packs/Day Years [...] or relatives? How often do you attend faith or pentecostal 1 to 4 times per year 11/08/2021 services? Do you belong to any clubs or organizations Yes 11/08/2021 such as faith groups, unions, fraternal or athletic groups, or [...] for the very basics like Not h marelna at all 11/08/2021 food, housing, medical care, [...] place to sleep or slept in a [place] facility (including now)? Education Answer Date Recorded What is the highest level of school you have completed or 12 th grade 11/08/2021 the highest degree you have received? Sex Assigned at Date Recorded Male 11/08/2021 12:12 PM CDT documented as of this encounter Progress Notes Renee Drummond M.D. - 11/11/2021 3:00 PM CDT Images from the original note were not included. Cardiovascular follow-up Subjective: The patient is a delightful 75-year-old male with exertional angina pectoris who underwent cardiac catheterization today. He returns following the catheterization. He had a slight bleeding problem in the wrist today from the procedure. Objective: His coronary arteriogram reveals severe in stent restenosis and his left anterior descending as well as severe disease in the intermediate coronary artery, the proximal left circumflex and the distal right coronary artery. Impression/recommendations: It was a pleasure to see the patient today. He is a 75-year-old male with progressive exertional angina despite anti anginal medical therapy. His cardiac catheterization today demonstrates severe four vessel coronary artery disease. He would benefit from revascularization. The interventionalist and I have both recommended surgical revascularization to him. He will visit with the cardiac surgeon laterthis week for an opinion. He will continue on his anti anginal medical therapies for now. We discussed the goals and risks of revascularization as well as the expected recovery time. We discussed the issues associated with convalescence, including (1) expected lifting and driving restrictions for 4-8 weeks following surgery, (2) the need for cardiac rehabilitation (3) and the need for management of symptoms until surgery. Questions were answered. The patient, his and his daughter Dr. Dixon were in the room. 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
--- OUTSIDE RECORDS SUMMARY | 2022-05-16 12:21 | XMS_ITS | Encounter Summary ---
:1945 Author Organization [facility] Address [address] [place] [address] Care Team Providers Name Role Phone Unavailable Primary Care Provider Unavailable Reason for Visit Outpatient (Routine) - Closed Specialty Diagnoses / Procedures Referred By Contact Refer red To Contact Cardiovascular Surgery Diagnoses Coronary Artery Disease With Stable Angina (HCC) Hyperlipidemia [facility] [address] [place] [address] Referral ID Status Reason Start Date Expiration Date Visits Requ ested Visits Authorized [id number] Closed 11/11/2021 11/11/2022 1 1 Encounter Details Date Type Department Care Team Description 11/13/2021 Comprehensive Visit Department of Rowse, Coronar y Artery Disease With Stable Angina (HCC); Cardiovascular Sd Mckay, Hyperlipidemi a On Treatment Surgery in [facility] [address] [facility] [address] [place] [phone] Social History Tobacco Use Types Packs/Day Years [...] How often do you attend mormonism or anabaptist 1 to 4 times per year 11/08/2021 [...] Sign Reading Time Taken Comments Blood Pressure 171/85 11/13/2021 3:52 PM CDT Pulse 52 11/13/2021 3:52 PM CDT Temperature - - Respiratory Rate - - Oxygen Saturation - - Inhaled Oxygen Concentration - - Weight 93.4 kg (205 lb 14.6 oz) 11/13/2021 3:52 PM CDT Height 184 cm (6' 0.44) 11/13/2021 3:52 PM CDT Body Mass Index 27.59 11/13/2021 3:52 PM CDT documented in this encounter Consult Sd Elder M.D. - 11/13/2021 4:00 PM CDT The patient is a very pleasant 75-year-old male referred by Dr. Ramirez Drummond for evaluation of multivessel coronary artery disease. In brief, the patient was recently evaluated for recurring anginal like symptoms. He had a nuclear medicine cardiac perfusion scan which showed a small reversible perfusion defect in the anteroseptal segment. He also had downsloping of the ST segments in the inferior leads as well as V4 through V6. This led to coronary angiography which revealed right coronary dominance. There was in stent stenosis in the mid LAD that reached 80%. The ramus intermedius has a proximal 80% obstruction. Small OM1 had a70% proximal obstruction. The distal right coronary artery had at least a 70% obstruction. The patient underwent transthoracic echo and this revealed stable biventricular systolic function with an EF of 65%. The aortic valve is trileaflet with minimal sclerosis (gradient 5 mmHg) and trivial aortic insufficiency. There is mild mitral and tricuspid regurgitation. Grade 1 diastolic dysfunction. Past medical history: 1. Coronary artery disease status post stenting of the mid LAD in 2005 2. Hypertension 3. Dyslipidemia 4. Sinus bradycardia 5. CKD II-IIIA Labs: Hemoglobin 14.8, hematocrit 42.7, platelet count 216, WBC 4.2, creatinine 1.49, GFR 45, albumin 4.2 Impression / Plan 1. Multivessel coronary artery disease with InStent stenosis of the mid LAD 2. Preserved biventricular systolic function 3. No hemodynamically significant valve disease I met with the patient who was accompanied by his and his daughter (orthodontic assistant). We reviewed the findings of the coronary angiogram and explored the images together. The patient is a good understanding of his coronary disease. He has no history of diabetes and no history of TIA/stroke. Giventhe multivessel nature of disease as well as is in stent stenosis I advised surgical coronary revascularization. We discussed expected perioperative recovery and outcomes following surgical revascularization. We also reviewed risks in detail. I answered several insightful questions. The patient would like to proceed and we are working to select a surgical date in the near future. We plan to address the LAD, Ramus, right PDA, and 1st OM if it is sizable enough for bypass. The patient needs bilateral vein mapping, radial artery study, and bilateral ultrasound studies. CONSENT I discussed the situation in detail with the patient including diagnosis, pathology, objectives, planned procedure, risks (%), benefits, alternatives, and the necessity for other members of the surgical team to participate in the procedure. Risks include but are not limited to , stroke, infection, bleeding, [place], potential need for blood transfusion, and the potential need for a pacemaker, possible need for short/termite helper hemodialysis. Advance directives regarding hospitalization following surgery were discussed, and all agree that we would resuscitate if the need arose. All questions were discussed and answered and consent given. The patient understands and wishes to proceed with the procedure. documented in this encounter Plan of Treatment Not on filedocumented as of this encounter Visit Diagnoses Diagnosis Coronary Artery Disease With Stable Omaira na (HCC) Hyperlipidemia On Treatment documented in this encounter
--- OUTSIDE RECORDS SUMMARY | 2022-05-16 12:21 | XMS_ITS | Encounter Summary ---
:1945 Author Organization [facility] Address [address] [place] [address] Care Team Providers Name Role Phone Unavailable Primary Care Provider Unavailable Encounter Details Date Type Department Care Team Description 11/20/2021 Diagnostic Division of Pulmonary [facility]enee Drummond [facility] With Stable Angina [place] [address] [facility] ([facility]) [address] [place] [phone] Social History Tobacco Use Types Packs/Day Years [...] or relatives? How often do you attend alevism or presybeterian 1 to 4 times per year 11/08/2021 services? Do you belong to any clubs or organizations Yes 11/08/2021 such as alevism groups, unions, fraternal or athletic groups, or [...] Name Priority Date/Time Associated Diagnosis Comme nts PUL HOME OVERNIGHT Routine 11/20/2021 Coronary Artery Result s for this OXIMETRY Disease With Stable procedur e are in the Angina (HCC) results section . documented in this encounter Results PUL Home Overnight Oximetry (11/20/2021) Specimen (Source) Anatomical Location Collection Method / Collectio n Time Received Time / Laterality Volume 11/20/2021 Narrative PERLA RICHEY - 11/21/2021 3:16 PM CD T This result has an attachment that is no t available. See PDF report for results Procedure Note Ramirez Beal M.B.BShaniceS. - 11/21/2021 See PDF report for results Renee Drummond M.D. PFT ORDERABLES Performing Organization Address City/State/ZIP Code Phon e Number [facility] documented in this encounter Visit Diagnoses Diagnosis Coronary Artery Disease With Stable Omaira na (HCC) documented in this encounter
--- OUTSIDE RECORDS SUMMARY | 2022-05-16 12:21 | XMS_ITS | Encounter Summary ---
:1945 Author Organization [facility] Address [address] [place] [address] Care Team Providers Name Role Phone Unavailable Primary Care Provider Unavailable Reason for Referral Outpatient (Routine) - Closed Specialty Diagnoses / Procedures Referred By Contact Refer red To Contact Diagnoses Coronary Artery Disease With Stable Angina (HCC) Ischemic Heart Chronic Disease Preoperative Examination Cardiovascular Latosha Machado APRN, [place] Radha on Procedures US Radial Arteries C.N.P. [address] [place], [place] [address] Referral ID Status Reason Start Date Expiration Date Visits Requ ested Visits Authorized [id number] Closed 11/13/2021 11/13/2022 1 1 Reason for Visit Outpatient (Routine) - Closed Specialty Diagnoses / Procedures Referred By Contact Refer red To Contact Diagnoses Coronary Artery Disease With Stable Angina (HCC) Ischemic Heart Chronic Disease Preoperative Examination Cardiovascular Latosha Machado APRN, [place] Radha on Procedures US Radial Arteries C.N.P. [address] [place], [place] [address] Referral ID Status Reason Start Date Expiration Date Visits Requ ested Visits Authorized [id number] Closed 11/13/2021 11/13/2022 1 1 Encounter Details Date Type Department Care Team Description 11/28/2021 Hospital Encounter Department of Latosha Machado, [place] ry Artery Disease With Stable Angina (HCC); Radiology, Gonda BILLET CHECKER, C.N.P. Ischemic Heart Chronic Disease; Building, in [address] [facility] Preoperative Examination Cardiovascular [facility] [address] [address] [facility] [phone] [place], [place] (Work) [phone] [phone] Social History Tobacco Use Types Packs/Day Years [...] or relatives? How often do you attend oriental orthodox or evangelical 1 to 4 times per year 11/08/2021 services? Do you belong to any clubs or organizations Yes 11/08/2021 such as oriental orthodox groups, unions, fraternal or athletic groups, [...] Name Priority Date/Time Associated Diagnosis Comme nts US RADIAL RAD - Routine 11/28/2021 9:49 Coronary Artery Results for ARTERIES (most inpatients AM CDT Disease With Stable this procedure and all Angina (HCC) are in the outpatients) Ischemic Heart results Chronic Disease section. Preoperative Examination Cardiovascular documented in this encounter Results US Radial Arteries (11/28/2021 9:49 AM CDT) [...] graft h arvesting bilaterally. Latosha Machado APRN, C.N.P. DEVANTE US PROCEDURES documented in this encounter Visit Diagnoses Diagnosis Coronary Artery Disease With Stable Omaira na (HCC) Ischemic Heart Chronic Disease Preoperative Examination Cardiovascular documented in this encounter Additional Health Concerns Assessment Noted Time PHQ-9 Depression Total Score: 10 11/27/2021 1:28 PM CD T documented as of this encounter
--- OUTSIDE RECORDS SUMMARY | 2022-05-16 12:21 | XMS_ITS | Encounter Summary ---
:1945 Author Organization [facility] Address [address] [place] [address] Care Team Providers Name Role Phone Unavailable Primary Care Provider Unavailable Reason for Referral Outpatient (Routine) - Authorized Specialty Diagnoses / Procedures Referred By Contact Refer red To Contact Diagnoses Benign Prostatic Hyperplasia Hypertrophy With Obstruction Suzette Arias P.A.- C. [facility] Procedures URO Cystoscopy (general) [address] [place], [place] [address] Referral ID Status Reason Start Date Expiration Date Visits V isits Requested Authorized [id number] Authorized 11/20/2021 11/20/2022 1 1 Outpatient (Routine) - Authorized Specialty Diagnoses / Procedures Referred By Contact Refer red To Contact Urology Diagnoses Benign Prostatic Hyperplasia Hypertrophy With Obstruction Suzette Arias P.A.- C. [facility] [address] [place] [address] Referral ID Status Reason Start Date Expiration Date Visits V isits Requested Authorized [id number] Authorized 11/20/2021 11/20/2022 1 1 Outpatient (Routine) - Authorized Specialty Diagnoses / Procedures Referred By Contact Refer red To Contact Diagnoses Benign Prostatic Hyperplasia Hypertrophy With Obstruction Suzette Arias P.A.- C. [facility] Procedures URO Urocuff [address] [place] [address] Referral ID Status Reason Start Date Expiration Date Visits V isits Requested Authorized [id number] Authorized 11/20/2021 11/20/2022 1 1 Reason for Visit Appointment Request (Routine) - Closed Specialty Diagnoses / Procedures Referred By Contact Refer red To Contact Urology Diagnoses Frequency Urinary Dysfunction Erectile Referral ID Status Reason Start Date Expiration Date Visits Requ ested Visits Authorized [id number] Closed 07/10/2020 07/10/2021 1 1 Encounter Details Date Type Department Care Team Description 11/20/2021 Comprehensive Visit Department of Suzette Arias Benign Prostatic Urology in [place], [place]. Hyperplasia [place], [place] [address] [facility] Hypertrophy With [address] [place], [place] Obstruction ([place] [address] Dx) [phone] Social History Tobacco Use Types Packs/Day Years [...] or relatives? How often do you attend bahai or bahai 1 to 4 times per year 11/08/2021 services? Do you belong to any clubs or organizations Yes 11/08/2021 such as bahai groups, unions, fraternal or athletic groups, or [...] PM CDT documented as of this encounter Consult Notes Suzette Arias P.A.-C. - 11/20/2021 1:15 PM CDT SUBJECTIVE REQUESTING PROVIDER No ref. provider found REASON FOR CONSULT Erectile dysfunction HISTORY OF PRESENT ILLNESS Mr. Doran presents today for discussion of erectile dysfunction. He has previously evaluated by Dr. Phan in August of 2016 for the same diagnosis. At that time they recommended trialing sildenafil as needed prior to sexual activity. The also discussed that he would be an excellent candidate for intr acavernosal injection therapies if desired. 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 He also has hypertension, dyslipidemia and chronic kidney disease. He is scheduled for coronary artery bypass x2 on December 06, 2021. He states he trialed the PDE5 inhibitors, both generic Viagra and generic Cialis without significantresponse many years ago. He is not interested in penile injections at this time. He also admits to some urinary frequency that his become more bothersome for him. He also has a sensation that he has some incomplete bladder emptying. Currently using tamsulosin. Answers for HPI/ROS submitted by the patient on 11/16/2021 Frequent urination (more than what you would consider normal): Yes Weak/poor urine stream: Yes None of the above: Yes Are you able to sense when your bladder is full?: Yes How many times daily do you typically urinate during the day?: 9 How many times do you typically wake up and urinate at night?: 3 Have you had a urinary tract infection (UTI) within the past 1 year, and if so how many?: none Have you had any kidney infections or required hospitalized for kidney failure?: No Have you required a catheter placed because you could not empty your bladder?: No Do you ever unintentionally leak urine?: No Have you ever or are currently taking any treatments to treat your urinary symptoms?: medications Have you ever had any surgical or office procedures to improve your urinary symptoms?: No Did those treatments help your symptoms?: Yes ERECTILE DYSFUNCTION Erectile Dysfunction Intake Questionnaire TESTOSTERONE Testosterone Intake Questionnaire PEYRONIE'S DISEASE @peyronintake@ SEXUAL DYSFUNCTION AMB URO SEXUAL DYSFUNCTION INTAKE QUESTIONNAIRE SB PMH/PSH The following portions of the patient's history were reviewed and updated as appropriate: allergies,family history, medical history, social history, surgical history and problem list. REVIEW OF SYSTEMS Genitourinary: Positive for frequent urination and erectile dysfunction. The following systems were negative: Constitutional, Skin, Eyes, ENT, CV, Respiratory, GI, Hematologic, Musculoskeletal, Neuro OBJECTIVE PHYSICAL EXAM Constitutional: He is oriented to person, place, and time. He appears well- developed and well-nourished. HENT: Right Ear: External ear normal. Left Ear: External ear normal. Eyes: EOM are normal. Pulmonary/Chest: Effort normal. Musculoskeletal: Normal range of motion. Neurological: He is alert and oriented to person, place, and time. Psychiatric: He has a normal mood and affect. His behavior is normal. ASSESSMENT / PLAN #1 Erectile dysfunction The patient and I had a lengthy discussion regarding the treatment options for ED including the followin. PDE5I - Discussed that if a patient doesn't respond adequately to Viagra, he would be unlikely to respond to Cialis or Levitra. The indication to switch to a different PDE5I would be if he was having bothersome side effects from Viagra. 2. MUSE (intraurethral alprostadil suppository) - Would perform the first teaching session in clinic. It is only effective in 30-40% of patients, and is not as effective as intracavernosal alprostadil. Most common side effects include dysuria or pain with insertion of the suppository. 3. ICI (intracavernosal injection of alprostadil) - Typically most effective of the medical treatment options. At 1 year 60-70% of patient are still using ICI. Reasons to discontinue are often if it is ineffective, unreliable, and painful. Patient are asked to rotate site of injection to prevent scartissue from building up at one site that can cause curvature of the penis (Peyronie's disease). If the patient is on anticoagulation, he would be at increased risk for hematoma formation at the site ofinjection. 4. MG (vacuum erection device) - Typically the least natural and most tedious of all the options listed above, but is a great way to get blood flow into the penis and promote penile physical therapy to preserve penile length. It can be used in combination with any of the medical therapies described above. 5. Penile implant - The most effective of all the options listed above and is guaranteed to get the patient an erection sufficient for penetration. It has the highest satisfaction rates of all the treatment listed above (over 95%). It is a surgery that requires general anesthesia and carries a 1-2% risk of infection, and 20% risk of mechanical failure at 10 years. We discussed performing penile ultrasound if he was interested in pursuing penile injections as I amconcerned about venous leak given the length of time it has been since he has had an erection. He stated he is not interested in penile injections and will discuss penile prosthesis with his at home. He is provided with a link to our men's Health website and I showed him where he can review additional educational materials including videos. #2 BPH He is currently taking tamsulosin. He is bothered by urinary frequency. I recommended he do a Uro cuff and fill out a bladder diary. Discussed that since he is already on tamsulosin I would recommend also doing a cystoscopy to further evaluate his prostate as it is likely he may need an outlet procedure. Given his upcoming cardiac surgery he will push this off until late in summer or early fall for further evaluation. Orders have been placed. The patient expressed understanding of the plan involved, and all questions were answered. PLAN: Patient will contact us if he would like to pursue penile prosthesis. Patient will call when he wants to schedule BPH evaluation after cardiac surgery. Signed by: Suzette Arias P.A.-C. 11/20/2021 12:52 PM CDT documented in this encounter Plan of Treatment Scheduled Orders Name Type Priority Associated Diagnoses [facility] URO Urocuff Procedure Routine Benign Prostatic Expected: Hyperplasia 11/20/2021 Hypertrophy With (Approximat e), Obstruction Expires: 2022 Urinalysis with Lab Routine Benign Prostatic Expected : Microscopic: Urine, Hyperplasia 11/21/19 Midstream Hypertrophy With (Approximat e), Obstruction Expires: 2022 Scheduled Referrals Name Type Priority Associated Diagnoses Order [facility] - General Outpatient Referral Routine Benign Prostatic Expected: - lower urinary Hyperplasia 11/20/2021 symptoms consult Hypertrophy With (Approx imate), (clinic) Obstruction Expires: 02/20/2023 documented as of this encounter Visit Diagnoses Diagnosis Benign Prostatic Hyperplasia Hypertrophy With Obstruction - Primary documented in this encounter
--- OUTSIDE RECORDS SUMMARY | 2022-05-16 12:21 | XMS_ITS | Encounter Summary ---
:1945 Author Organization [facility] Address [address] [place] [address] Care Team Providers Name Role Phone Elsewhere, Pcp Primary Care Provider Unavailable Encounter Details Date Type Department Care Team Description 11/15/2021 Clinical Communication Department of Sd Arce Cardiovascular Surgery Alesia Mckay in [facility] [address] [facility] [address] [place] [phone] Social History Tobacco Use Types Packs/Day Years [...] How often do you attend zoroastrian or spiritism 1 to 4 times per year 11/08/2021 [...] Notes Telephone Encounter - Eva Banerjee - 11/15/2021 1:00 PM CDT Patient would like a sooner date. Please call his daughter Destiny at [phone] documented in this encounter Plan of Treatment Not on filedocumented as of this encounter Visit Diagnoses Not on filedocumented in this encounter Additional Health Concerns Infection Onset Date Last Indicated Resolved Time COVID19 Pending 12/02/2021 12/02/2021 12/02/2021 1:31 PM CDT documented as of this encounter Care Teams Hearings Reporter Relationship Specialty Start Date End Date Elsewhere, Pcp PCP - General 12/05/21 documented as of this encounter
--- OUTSIDE RECORDS SUMMARY | 2022-05-16 12:21 | XMS_ITS | Encounter Summary ---
:1945 Author Organization [facility] Address [address] [place] [address] Care Team Providers Name Role Phone Elsewhere, Pcp Primary Care Provider Unavailable Encounter Details Date Type Department Care Team Description 11/20/2021 Orders Only Department of Renee Drummond Arter y Cardiovascular Medicine Deja Guzmán Disease With Stable in [facility] [address] Angina (HCC) (Primary [address] [place], [place] Dx) [place] [phone] Social History Tobacco Use Types Packs/Day Years [...] or relatives? How often do you attend pentecostal or scientologist 1 to 4 times per year 11/08/2021 services? Do you belong to any clubs or organizations Yes 11/08/2021 such as pentecostal groups, unions, fraternal or athletic groups, or [...] on filedocumented as of this encounter Results PUL Home Overnight Oximetry (11/20/2021) Specimen (Source) Anatomical Location Collection Method / Collectio n Time Received Time / Laterality Volume 11/20/2021 Narrative PERLA RICHEY - 11/21/2021 3:16 PM CD T This result has an attachment that is no t available. See PDF report for results Procedure Note Ramirez Beal M.B.B.S. - 11/21/2021 See PDF report for results Renee Drummond M.D. PFT ORDERABLES Performing Organization Address City/State/ZIP Code Phon e Number [facility] [facility] documented in this encounter Visit Diagnoses Diagnosis Coronary Artery Disease With Stable Omaira na (HCC) - Primary Coronary Artery Disease With Stable Omaira na (HCC) documented in this encounter Additional Health Concerns Infection Onset Date Last Indicated Resolved Time COVID19 Pending 12/02/2021 12/02/2021 12/02/2021 1:31 PM CDT documented as of this encounter Care Teams Drug And Alcohol Counsellor Relationship Specialty Start Date End Date Elsewhere, Pcp PCP - General 12/05/21 documented as of this encounter
--- OUTSIDE RECORDS SUMMARY | 2022-05-16 12:21 | XMS_ITS | Encounter Summary ---
:1945 Author Organization [facility] Address [address] [place] [address] Care Team Providers Name Role Phone Unavailable Primary Care Provider Unavailable Reason for Visit Appointment Request (Routine) - Closed Specialty Diagnoses / Procedures Referred By Contact Refer red To Contact Dermatology Diagnoses Scab Lesion Skin Referral ID Status Reason Start Date Expiration Date Visits Requ ested Visits Authorized [id number] Closed 10/30/2021 10/30/2022 1 1 Encounter Details Date Type Department Care Team Description 11/13/2021 Comprehensive Visit Department of [facility] Skin Squamous Cell Personal History (Primary Dx); Dermatology in [place], [facility] S kin Nose; Alesia Curry Keratosis Actinic; [place] [address] [facility] Dermatoheliosis; [address] [place], [place] [phone] Social History Tobacco Use Types Packs/Day Years [...] or relatives? How often do you attend protestant or taoism 1 to 4 times per year 11/08/2021 services? Do you belong to any clubs or organizations Yes 11/08/2021 such as protestant groups, unions, fraternal or athletic groups, or [...] documented as of this encounter Progress Notes Anitha Jones M.D. - 11/13/2021 2:00 PM CDT Patient was seen and evaluated by Marine Service Manager Dr Hernandez, who concurs with the assessment and plan. Correspondence to MD Abraham SUBJECTIVE CHIEF COMPLAINT Personal history of nonmelanoma skin cancer, follow-up HISTORY OF THE PRESENT ILLNESS Angel Doran is a pleasant 75 y.o. 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 He tells me that he has noticed a nonhealing spot on her right nasal tip/nasal ala that tends to get frequently ulcerated. He also has noted multiple rough raised spots on the sides of his face and scalp. 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 There are no other skin concerns today. OBJECTIVE PHYSICAL EXAM General: Awake, alert, in no acute distress, and with appropriate affect. Skin: Full skin exam including scalp, face, neck, chest, back, abdomen, arms, legs, hands, feet, genitalia, buttocks, oral mucosa, and conjunctivae was performed Right nasal ala there is a 4 mm papule with central excoriation and raised periphery with telangiectasia Left christian and scalp multiple erythematous scaly hyperkeratotic rough papules Left lateral ankle hyperpigmented patch with gyrate pattern and a raised stuck on verrucous lesion within Few scattered hyperpigmented macules and papules with reassuring features over trunk and extremities There are no other skin lesions of concern in the areas examined. ASSESSMENT / PLAN #1 Lesion Skin Nose Differential diagnosis is basal cell carcinoma versus adnexal tumor vs squamous cell carcinoma. Shave biopsy performed CONSENT Discussed the risks, benefits, alternatives, and the necessity of other members of the healthcare team participating in the procedure. All questions answered and consent given. UNIVERSAL PROTOCOL Procedural pause conducted to verify: correct patient identity, procedure to be performed, and as applicable, correct side and site, correct patient position, and availability of implants, special equipment, or special requirements. PROCEDURE INFORMATION Shave biopsy. We explained the potential diagnosis and recommended that we obtain a biopsy. The risks and benefitsof the procedure were discussed, and the patient consented to these procedures. Using 1% lidocaine with epinephrine for local anesthesia, a shave biopsy was obtained from the right nasal ala. Biopsy submitted to Dermatopathology for H&E. Special stains will be performed as indicated. The bleeding was well controlled with application of aluminum chloride. Dressing was applied, and wound care instructions were explained. Biopsy results and any further recommendations will be communicated to the patient by letter. Patient given pamphlet [id number]. NOTE: Has cardiac surgery coming up. Mohs surgery can be deferred after cardiac surgery. #2 Cancer Skin Squamous Cell Personal History No evidence of recurrence #3 Keratosis Actinic CONSENT Discussed the risks, benefits, alternatives, and the necessity of other members of the healthcare team participating in the procedure. All questions answered and consent given. PROCEDURE INFORMATION Given the precancerous nature of this lesion(s), treatment is medically indicated. After discussion of the risks, benefits and alternatives to treatment with cryotherapy, informed consent was obtained.We treated a total of five lesion(s) with two 20-second freeze-thaw cycles of liquid nitrogen cryotherapy. The patient tolerated the procedure well. Aftercare instructions were provided in written and verbal form to the patient. Should any of these lesions recur, the patient should return for biopsy or further evaluation. #4 Dermatoheliosis Sun protection and sun avoidance were reviewed with the patient. Educational materials were providedregarding skin self-examination, the warning signs and symptoms of skin cancer, and the proper use of sunscreens. I would recommend a full skin cancer screening examination with an appropriately trained clinician every year. #5 Keratosis Seborrheic The benign nature of the skin lesion(s) was discussed with the patient. No treatment is required. I recommend continued observation. Should symptoms or changes develop related to this condition, I would recommend a return visit for reassessment. Answers for HPI/ROS submitted by the patient on 11/12/2021 Fatigue: Yes No eye issues: Yes Difficulty hearing: Yes Chest pain, pressure or tightness: Yes Dry cough: Yes Constipation: Yes Pain or stiffness in the joints: Yes Back pain/stiffness: Yes Change in mole or skin spot: Yes Light-headedness: Yes Numbness or shooting pain in hands, arms, legs or feet: Yes Change in sexual drive (decreased libido): Yes Loud snoring: Yes Excessive daytime sleepiness/tiredness: Yes Stop breathing, choking, or gasping while asleep: Yes Little interest or pleasure in doing things: Yes No blood/lymph issues: Yes Frequent urination: Yes Difficulty urinating: Yes Erectile dysfunction: Yes Associated attestation - Robi Amado M.D. - 11/13/2021 2:42 PM CDT I saw and evaluated the patient, participating in the gama portions of the service. I reviewed the resident???s note. I agree with the resident???s findings and plan. I was present for the critical portion and immediately available for the entire procedure. documented in this encounter Miscellaneous Notes Result Encounter Note - Anitha Jones M.D. - 2021 12:14 PM CDT Needs Mohs. Please send patient letter and place order documented in this encounter Plan of Treatment Not on filedocumented as of this encounter Procedures Procedure Name Priority Date/Time Associated Diagnosis Comme nts DERMATOPATHOLOGY Routine 11/13/2021 2:22 PM Lesion Skin Nose R esults for this CDT procedure are i n the results section. documented in this encounter Results Dermatopathology (11/13/2021 2:22 PM CDT) Component Value Ref Test Analysis Performed Pathologis t Range Method Time At Signature 11/18/2021 [facility] 2:32 PM CDT Report Deandra Ellis, 11/18/2021 [facility] electronically MZac 2:32 PM CDT signed by Gross Description Received in formalin labeled with the patient's n rory, 11/18/2021 [facility] medical record number, and right nasal ala is a 0.7 x 0.6 2:32 PM CDT x 0.1 cm pale byrd skin shave biopsy. ??There is a 0.4 x 0.4 cm pale byrd-brown, pigmented lesion with irregular borders eccentrically located on the skin surface. ??Specimen is bisected and submitted entirely in cassette A1. ??Grossed by MBAkash. Interpretation FINAL DIAGNOSIS 11/18/2021 [facility] A. ??Right nasal ala, Skin shave biopsy: ??Basal cell 2:32 PM CDT carcinoma, involving biopsy border Specimen (Source) Anatomical Collection Method Collection Time Re ceived Time Location / / Volume Laterality Skin (Right nasal 11/13/2021 2:22 PM ala) CDT Narrative This result has an attachment that is no t available. Anitha Finch M.D. LAB PATH DERM ORDERABLE S Performing Organization Address City/State/ZIP Code Phon e Number [facility] - [address] [place], [place] [address] [place] [address] [facility] [address] documented in this encounter Visit Diagnoses Diagnosis Cancer Skin Squamous Cell Personal Histo ry - Primary Lesion Skin Nose Keratosis Actinic Dermatoheliosis Keratosis Seborrheic documented in this encounter
--- OUTSIDE RECORDS SUMMARY | 2022-05-16 12:22 | XMS_ITS | Encounter Summary ---
:1945 Author Organization [facility] Address [address] [place] [address] Care Team Providers Name Role Phone Unavailable Primary Care Provider Unavailable Reason for Visit Outpatient (Routine) - Authorized Specialty Diagnoses / Procedures Referred By Contact Refer red To Contact Diagnoses Pain Chest Hyperlipidemia Mixed Angina Stable (HCC) Renee Drummond M.D. [facility] Procedures NM Cardiac Perfusion Rest and Stress SPECT [address] [place] [phone] Referral ID Status Reason Start Date Expiration Date Visits V isits Requested Authorized [id number] Authorized 09/10/2021 09/10/2022 6 6 Encounter Details Date Type Department Care Team Description 11/05/2021 Hospital Encounter Department of Radiology, Renee Drummond, [place], [place] [address] [facility] [address] [place] [phone] Social History Tobacco Use Types Packs/Day Years Used Date Smoking Tobacco: Former Smokeless Tobacco: Never Alcohol Habits Answer Date Recorded How often [...] How often do you attend orthodoxy or faith 1 to 4 times per year 11/08/2021 [...] or slept in a long-term (including now)? Sex Assigned at Date Recorded Male 11/08/2021 12:12 PM CDT documented as of this encounter Medications at Time of Discharge Medication Sig Dispensed Refills Start Date End Date atorvastatin (LIPITOR) Take 1 tablet by 0 017 40 mg tablet mouth every evening. tamsulosin (FLOMAX) 0.4 Take 0.4 mg by mouth 0 mg 24 hr capsule every evening. amLODIPine (NORVASC) 5 Take 1 tablet (5 mg 30 tablet 11 10/2712/08/2021 mg tablet total) by mouth daily. cholecalciferol Take 1 tablet by 0 06/09/201102/2022 (VITAMIN D3) 50 mcg mouth daily. (2,000 Unit) tablet ezetimibe (ZETIA) 10 mg Take 1 tablet (10 mg 90 tablet 3 03/07/2022 tablet total) by mouth daily. losartan (COZAAR) 100 Take 1 tablet by 0 04/17/20 15 12/08/2021 mg tablet mouth daily. metoprolol succinate Take 1 tablet by 0 7 12/08/2021 (TOPROL-XL) 25 mg 24 hr mouth every evening. tablet clopidogreL (PLAVIX) 75 Take 4 tablets (300 4 tablet 0 11/11/2021 mg tablet mg total) by mouth daily for 1 day[address] aspirin [address] Take 1 tablet by 0 07/24/2010 0 12/02/2021 tablet mouth daily. nitroglycerin Place 1-2 tablets 100 [...] Procedure Name Priority Date/Time Associated Comments Diagnosis NM CARDIAC RAD - Routine 11/05/2021 8:54 Pain Chest Results for this PERFUSION REST (most inpatients AM CDT Hyperlipidemia procedu re are in AND STRESS SPECT and all Mixed the results outpatients) Angina Stable section. (HCC) documented in this encounter Visit Diagnoses Not on filedocumented in this encounter Administered Medications Inactive Administered Medications - up to 3 most recent administrations Medication Order MAR Action Action Date Dose Rate Site technetium Tc 99m Given 11/05/2021 8:07 AM 34.5 millicuries sestamibi injection CDT (Tc-99m CARDIOLITE) 34.5 millicurie, intravenous, Once, On Thu11/05/21 at 0815, For 1 dose documented in this encounter
--- OUTSIDE RECORDS SUMMARY | 2022-05-16 12:22 | XMS_ITS | Encounter Summary ---
:1945 Author Organization [facility] Address [address] [place] [id number] Care Team Providers Name Role Phone Unavailable Primary Care Provider Unavailable Reason for Visit Reason Comments Patient Education Outpatient (Routine) - Closed Specialty Diagnoses / Procedures Referred By Contact Refer red To Contact Cardiovascular Disease Renee Drummond [place] M.D. [address] [place] [phone] Referral ID Status Reason Start Date Expiration Date Visits Requ ested Visits Authorized [id number] Closed 11/05/2021 11/05/2022 1 1 Encounter Details Date Type Department Care Team Description 11/08/2021 Virtual Visit Department of Renee Drummond M.D. [address] [place] [phone] Coronary Artery Cardiovascular Medicine Millie Matias R.N. [address] [place] [phone] Disease With Stable in [facility] yokasta Angina (HCC) [address] [place] [phone] Social History Tobacco Use Types Packs/Day Years [...] or relatives? How often do you attend taoist or caodaism 1 to 4 times per year 11/08/2021 services? Do you belong to any clubs or organizations Yes 11/08/2021 such as taoist groups, unions, fraternal or athletic groups, or [...] as of this encounter Patient Instructions Patient InstructionsMillie Matias R.N. - 11/08/2021 10:35 AM CDT PRE-PROCEDURE EDUCATION PROVIDED VIA TELEPHONE CALL. THE PATIENT WAS NOT PHYSICALLY PRESENT FOR THISAPPOINTMENT Pre-procedure Instructions: Basic information about the scheduled procedure Fasting for 8 hours, 6 hours, and 2 hours prior to report time ---Please refer to page 8 of the pamphlet entitled Preparing For Your Cardiac Catheterization or Heart Rhythm Procedure for details Take all medications as instructed Call the [facility] Service Line ([phone]) the evening before the procedure between the hours of 7 pm and midnight to learn what time and where to report to the hospital the next day A responsible adult (18 years of age or older) needs to be present the day of procedure including atdischarge for transportation home. Plan to stay within [facility] miles of [facility] overnight Updated Visitor Policy: Due to the COVID-19 pandemic, visitor restrictions are in place. Two visitors at a time, and up to a maximum of five consistent visitors are permitted to accompany the patient to any outpatient appointments, procedures, and/or the patient's hospital room. Visitors must be at least 5 years old and a responsible adult must accopany all visitors under the age of 16. Visiting hours are 7 am to 9 pm. Please check the [employer] Visitor Policy website for the most up to date visitorpolicy information. Aspirin Instructions: Take 4 tablets of 81mg Aspirin, for a total of 324mg, on the morning of your procedure. Plavix Instructions: Take 4 tablets (300 mg total) of Plavix on the day prior to your procedure. Take 1 tablet (75 mg) ofPlavix on the morning of your procedure. Vitamins/Supplements Instructions: Do not take vitamins or supplements the morning of the procedure. documented in this encounter Progress Notes Millie Matias R.N. - 11/08/2021 10:30 AM CDT SUBJECTIVE REASON FOR PHONE CALL Pre-procedure education OBJECTIVE Review done via RN Protocol: Cardiovascular Clinic Pre-Cardiac Invasive Catheterization Procedure Patient Management Reference document #[id number] Date of procedure: 11/11/21 Procedure to be done: -- Coronary angiogram (ASA load) -- PCI +/- (Plavix and ASA load) RON in the last 30 days from date of procedure: Yes ECG in the last 45 days from date of procedure: Yes Labs in the last 45 days from date of procedure: Yes COVID test done? Yes Allergy to contrast dye/iodine? No Medications See Patient Instructions/AVS (in Notes Tab) Anticoagulation Plan Not applicable. ASSESSMENT / PLAN Information Discussed Reviewed pre-procedure instructions with patient/family as listed in ???Preparing For Your Cardiac Catheterization or Heart Rhythm Procedure?? , [id number]. See After Visit Summary for specific instructions shared with the patient. Disposition/Recommendation: protocol orders Information/Education: patient/caller able to teach back Caller agreeable to plan of care: yes The following references were used: none Additional education materials provided: None documented in this encounter Plan of Treatment Not on filedocumented as of this encounter Visit Diagnoses Diagnosis Coronary Artery Disease With Stable Omaira na (HCC) documented in this encounter Additional Health Concerns Infection Onset Date Last Indicated Resolved Time COVID19 Pending 11/06/2021 11/08/2021 11/08/2021 9:52 PM CDT documented as of this encounter
--- OUTSIDE RECORDS SUMMARY | 2022-05-16 12:22 | XMS_ITS | Encounter Summary ---
:1945 Author Organization [facility] Address [address] [place] [phone] Care Team Providers Name Role Phone Unavailable Primary Care Provider Unavailable Reason for Referral Outpatient (Routine) - Authorized Specialty Diagnoses / Procedures Referred By Contact Refer red To Contact Diagnoses Pain Chest Hyperlipidemia Mixed Angina Stable (HCC) Renee Drummond M.D. [facility] Procedures NM Cardiac Perfusion Rest and Stress SPECT [address] [place] [phone] Referral ID Status Reason Start Date Expiration Date Visits V isits Requested Authorized [id number] Authorized 09/10/2021 09/10/2022 6 6 Reason for Visit Outpatient (Routine) - Authorized Specialty Diagnoses / Procedures Referred By Contact Refer red To Contact Diagnoses Pain Chest Hyperlipidemia Mixed Angina Stable (HCC) Renee Drummond M.D. [facility] Procedures NM Cardiac Perfusion Rest and Stress SPECT [address] [place] [phone] Referral ID Status Reason Start Date Expiration Date Visits V isits Requested Authorized [id number] Authorized 09/10/2021 09/10/2022 6 6 Encounter Details Date Type Department Care Team Description 11/05/2021 Hospital Encounter Department of Renee Drummond [facility] ; Radiology, Ramiro Guzmán M.D. Hyperlipidemia Mixed; Building, in [address] [facility] Angina Stable (HCC) [facility] [phone] [place], [place] (Work) [phone] Social History Tobacco Use Types Packs/Day Years [...] or relatives? How often do you attend yazdanism or roman catholic 1 to 4 times per year 11/08/2021 services? Do you belong to any clubs or organizations Yes 11/08/2021 such as yazdanism groups, unions, fraternal or athletic groups, or [...] place to sleep or slept in a retirement (including now)? Sex Assigned at Date Recorded [...] Stable section. (HCC) documented in this encounter Results NM Cardiac Perfusion Rest and Stress SPECT (11/05/2021 8:54 AM CDT) Specimen (Source) Anatomical Collection Method Collection Time Re ceived Time Location / / Volume Laterality 11/05/2021 6:29 AM CDT Narrative [facility] - 11/05/2021 10:59 AM CDT This result has an attachment that is no t available. See PDF For Result Procedure Note Jorge Castillo M.D. - 11/05/2021For matting of this note might be different from the original. See PDF For Result Renee Drummond M.D. [facility] [place] PROCEDURES Performing Organization Address City/State/ZIP Code Phon e Number [facility] NA documented in this encounter Visit Diagnoses Diagnosis Pain Chest Hyperlipidemia Mixed Angina Stable (HCC) documented in this encounter Administered Medications Inactive Administered Medications - up to 3 most recent administrations Medication Order MAR Action Action Date Dose Rate Site technetium Tc 99m Given 11/05/2021 6:55 8.6 millicuries Right Antecubital sestamibi injection AM CDT (Tc-99m CARDIOLITE) 8.6 millicurie, intravenous, Once, On Thu11/05/21 at 0715, For 1 dose documented in this encounter
--- OUTSIDE RECORDS SUMMARY | 2022-05-16 12:22 | XMS_ITS | Encounter Summary ---
:1945 Author Organization [facility] Address [address] [place] [id number] Care Team Providers Name Role Phone Unavailable Primary Care Provider Unavailable Encounter Details Date Type Department Care Team Description 11/04/2021 Hospital Encounter Department of [place], [facility] and Pathology, [place] [address] [place] [address] in [place], [place] [address] [place] [address] [place], [place] (Work) [phone] Social History Tobacco Use Types Packs/Day Years [...] or relatives? How often do you attend scientologist or roman catholic 1 to 4 times per year 11/08/2021 services? Do you belong to any clubs or organizations Yes 11/08/2021 such as scientologist groups, unions, fraternal or athletic groups, or [...] or slept in a assisted (including now)? Sex Assigned at Date Recorded Male 11/08/2021 12:12 PM CDT documented as of this encounter Medications at Time of Discharge Medication Sig Dispensed Refills Start Date End Date atorvastatin (LIPITOR) Take 1 tablet by 0 017 40 mg tablet mouth every evening. tamsulosin (FLOMAX) 0.4 Take 0.4 mg by mouth 0 mg 24 hr capsule every evening. cholecalciferol (VITAMIN Take 1 tablet by 0 06/0903/07/2022 D3) 50 mcg (2,000 Unit) mouth daily. tablet losartan (COZAAR) 100 mg Take 1 tablet by 0 04/1712/08/2021 tablet mouth daily. metoprolol succinate Take 1 tablet by 0 7 12/08/2021 (TOPROL-XL) 25 mg 24 hr mouth every evening. tablet aspirin [address] tablet Take 1 tablet by 0 07/2412/02/[address] 1-3 tablets 0 09/05/201610/27 (NITROSTAT) 0.4 mg SL under the tongue as tablet needed. Place 1 tab under tongue at first [...] Procedure Name Priority Date/Time Associated Comments Diagnosis DIPSTICK, U Routine 11/04/2021 10:24 Results for this AM CDT procedure are i n the results section. MICROSCOPIC AUTOMATED Routine 11/04/2021 10:24 Re sults for this AM CDT procedure are i n the results section. PH, U Routine 11/04/2021 10:24 Results for this AM CDT procedure are i n the results section. OSMOLALITY, U Routine 11/04/2021 10:24 Results fo r this AM CDT procedure are i n the results section. URINALYSIS WITH Routine 11/04/2021 10:24 Frequency Urinary Res ults for this MICROSCOPIC AM CDT procedure are i n the results section. documented in this encounter Results Dipstick, Urine (11/04/2021 10:24 AM CDT) Patholo gist Method Time Signature Hemoglobin, Negative Negative 11/04/2021 DTL QL, U 12:43 PM CDT Leukocyte Negative Negative 11/04/2021 DTL Esterase, U 12:43 PM CDT Nitrite, U Negative Negative 11/04/2021 DTL 12:43 PM CDT Ketone, U Negative Negative 11/04/2021 DTL mg/dL 12:43 PM CDT Glucose, U Negative Negative 11/04/2021 DTL mg/dL 12:43 PM CDT Specimen Anatomical Collection Method Collection Time Receive d Time (Source) Location / / Volume Laterality Urine 11/04/2021 10:24 11/04/2021 AM CDT 12:03 PM CDT Suzette Arias P.A.-C. LAB URINE ORDERABLES Performing Organization Address City/State/ZIP Code Phon e Number [facility] - [address] [place], [place] [address] [facility] [place] [address] Laboratories-[facility] [address] Osmolality, Urine (11/04/2021 10:24 AM CDT) P athologist Signature Osmolality, U 952 150 - 1150 11/04/2021 DTL mOsm/kg 1:20 PM CDT Specimen Anatomical Collection Method Collection Time Receive d Time (Source) Location / / Volume Laterality Urine 11/04/2021 10:24 11/04/2021 AM CDT 12:03 PM CDT Suzette Arias P.A.-C. LAB URINE ORDERABLES Performing Organization Address City/[facility]/ZIP Code Phon e Number [facility] - 200 [place], [place] [address] [place], [place] [id number] [place] [address] pH, Urine (11/04/2021 10:24 AM CDT) P athologist Signature pH, U 5.2 4.5 - 8.0 11/04/2021 1:20 DTL PM CDT Specimen Anatomical Collection Method Collection Time Receive d Time (Source) Location / / Volume Laterality Urine 11/04/2021 10:24 11/04/2021 AM CDT 12:03 PM CDT Suzette Arias P.A.-C. LAB URINE ORDERABLES Performing Organization Address [facility]/ZIP Code Phon e Number [facility] - 200 [place], [place] [address] [place] [address] Microscopic Automated (11/04/2021 10:24 AM CDT) P athologist Signature Microscopy Normal 11/04/2021 DTL 12:43 PM CDT Casts, Hyaline 1-3 /lpf 11/04/2021 DTL 12:43 PM CDT Specimen Anatomical Collection Method Collection Time Receive d Time (Source) Location / / Volume Laterality Urine 11/04/2021 10:24 11/04/2021 AM CDT 12:03 PM CDT Suzette Arias P.A.-C. LAB URINE ORDERABLES Performing Organization Address City/[facility]/ZIP [facility] Phon e Number [facility] - 200 [place], [place] [address] Urinalysis with Microscopic: Urine, Midstream (11/04/2021 10:24 AM CDT) Patholo gist Method Time Signature Source Urine, Urine, 11/04/2021 DTL Midstream 12:03 PM CDT Color, U Yellow 11/04/2021 DTL 12:03 PM CDT Clarity, U Clear 11/04/2021 DTL 12:03 PM CDT Protein, U 8 <26 mg/dL 11/04/2021 DTL 1:37 PM CDT Protein/Osmol 0.08 <0.42 11/04/2021 DTL ality ratio 1:37 PM CDT Predicted 24 89 mg/24 h 11/04/2021 DTL Hr Protein 1:37 PM CDT Predicted 28-280 mg/24 h 11/04/2021 DTL Range 1:37 PM CDT Specimen Anatomical Collection Method Collection Time Receive d Time (Source) Location / / Volume Laterality Urine (Urine, 11/04/2021 10:24 11/04/2021 Midstream) AM CDT 12:03 PM CDT Suzette Arias P.A.-C. LAB URINE ORDERABLES Performing Organization Address City/State/ZIP Code Phon e Number [facility] - [address] [place], [place] [address] [facility] [place] [address] [facility] [address] documented in this encounter Visit Diagnoses Diagnosis Frequency Urinary documented in this encounter
--- OUTSIDE RECORDS SUMMARY | 2022-05-16 12:22 | XMS_ITS | Encounter Summary ---
:1945 Author Organization [facility] Address [address] [place] [address] Care Team Providers Name Role Phone Unavailable Primary Care Provider Unavailable Reason for Visit Appointment Request (Routine) - Closed Specialty Diagnoses / Procedures Referred By Contact Refer red To Contact Cardiovascular Disease Diagnoses Coronary Artery Disease (Unspecified) Pain Chest Referral ID Status Reason Start Date Expiration Date Visits Requ ested Visits Authorized [id number] Closed 09/10/2021 09/10/2022 1 1 Encounter Details Date Type Department Care Team Description 11/04/2021 Comprehensive Visit Department of Renee Drummond (Primary Dx); Cardiovascular Alesia Guzmán Pain Chest; Medicine in [place], [address] [place] [address] Artery Disease With Stable Angina (HCC); [facility] Hyperlipidemia On Treatment; [address] [place] [address], Hypertension And Chronic Kid jesse Disease Stage 2 [facility] [phone] Social History Tobacco Use Types Packs/Day Years [...] How often do you attend anglican or latter day 1 to 4 times per year 11/08/2021 [...] Sign Reading Time Taken Comments Blood Pressure 161/80 11/04/2021 12:54 PM CDT Pulse 58 11/04/2021 12:54 PM CDT Temperature - - Respiratory Rate - - Oxygen Saturation - - Inhaled Oxygen Concentration - - Weight 94.4 kg (208 lb 3.6 oz) 11/04/2021 12:54 PM CDT Height 181.4 cm (5' 11.42) 11/04/2021 12:54 PM CDT Body Mass Index 28.7 11/04/2021 12:54 PM CDT documented in this encounter Consult Notes Renee Drummond M.D. - 11/04/2021 1:00 PM CDT SUBJECTIVE Referring Provider: No ref. provider found CHIEF COMPLAINT / REASON FOR CONSULT Chest pain HISTORY OF PRESENT ILLNESS Angel Doran is a 75 y.o. male who presents to [facility] for evaluation of chest pain. 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 He has been having angina like symptoms for the last several months. They have intensified in the month of September. He had several spells of angina while walking the [employer] course in January in [place] during the Master's golf tournament a few weeksago. The discomfort is a pressure sensation in his chest and radiates into the shoulders. He also has mild dyspnea coming it. He has also had a discomfort while watching television at rest on occasion.He is not absolutely certain it is angina. He has wondered if he could be attributable to beverages and/or eating, but it seems to occur independent of that with exercise and activity. He also has been struggling with significant daytime fatigue. He will fall asleep easily during the day without warning. His does not report much in the way of snoring and the patient does not feel he awakens at night out of breath. He has come for a comprehensive evaluation for these issues. Cardiac History: Previous cardiac history includes: Patient Active Problem List Diagnosis ??? Coronary Artery Disease (Unspecified) ??? Hypertension ??? Hypertension NOS ??? Chronic Coronary Artery Disease ??? Hyperlipidemia On Treatment No past medical history on file. SOCIAL HISTORY He is now retired. His live in their own home in [place], [place]. Social History Tobacco Use ??? Smoking status: Former Smoker ??? Smokeless tobacco: Never Used Substance Use Topics ??? Alcohol use: Not on file No family history on file. Current Outpatient Medications: ??? aspirin [address] tablet, Take 1 tablet by mouth daily., Disp: , Rfl: ??? atorvastatin (LIPITOR) 40 mg tablet, Take 1 tablet by mouth daily., Disp: , Rfl: ??? cholecalciferol (VITAMIN D3) 50 mcg (2,000 Unit) tablet, Take 1 tablet by mouth daily., Disp: , Rfl: ??? losartan (COZAAR) 100 mg tablet, Take 1 tablet by mouth daily., Disp: , Rfl: ??? metoprolol succinate (TOPROL-XL) 25 mg 24 hr tablet, Take 1 tablet by mouth daily., Disp: , Rfl: ??? nitroglycerin (NITROSTAT) 0.4 mg SL tablet, Place 1-3 tablets under the tongue as needed. Place 1 tab under tongue at first sign of angina. Repeat in 5 min until relief. Max 3 tab/15 min, Disp: , Rfl: ??? sildenafil (REVATIO) 20 mg tablet, Take 1-5 tablets by mouth as directed. Take 1-5 pills one hour before sexual intercourse on an empty stomach. Do not take Nitorglycerin after taking this drug, Disp: , Rfl: ??? tamsulosin (FLOMAX) 0.4 mg 24 hr capsule, Take 1 capsule by mouth daily., Disp: , Rfl: ??? traMADol (ULTRAM) 50 mg tablet, Take 1 tablet by mouth as needed. Unknown, Disp: , Rfl: ??? ezetimibe (ZETIA) 10 mg tablet, Take 1 tablet (10 mg total) by mouth daily., Disp: 90 tablet, Rfl: 3 No Known Allergies I have reviewed the chart including most recent evaluations and noted the findings. REVIEW OF SYSTEMS Pertinent items are noted in HPI; all other review of systems was negative. OBJECTIVE BP (!) 161/80 (BP Location: Right arm, Patient Position: Sitting, Cuff Size: Regular) Pulse (!) 58 Ht 181.4 cm Wt 94.4 kg BMI 28.70 kg/m?? PHYSICAL EXAMINATION General Appearance: Alert, cooperative, no distress, appears stated age. Eyes: Normal without any redness or drainage. Neck: Supple, symmetrical. Trachea midline. No adenopathy. Carotids 4/4, no bruits; JVP 6 cm, normalwaveform Lungs: Clear to auscultation bilaterally, respirations unlabored. Chest Wall: No tenderness or deformity. Heart: Regular rate and rhythm, S1 normal and S2 normal, no rub or gallop, soft grade 1/6 early peaking systolic ejection murmur. Abdomen: Soft, nontender. Bowel sounds active [...] for: ECG: ECG 12 Lead Result Date: 11/04/2021 Sinus bradycardia Otherwise normal ECG When compared with ECG of 05-SEP-2016 08:42, No significant change was found Reviewed by RUSH Gibson Chest x-ray: DX Chest AP or PA and Lateral 2 Views Result Date: 11/04/2021 Impression: Slight fibrosis or linear atelectasis left base. Aortic calcification. Coronary stent. Thoracolumbar curve with degenerative changes. No significant change since 09/05/2016. Echo Transthoracic (TTE) Result Date: 11/04/2021 Impression: Status post coronary artery stent implantation (LAD). LEFT VENTRICLE:Normal left ventricular chamber size. Normal left ventricular geometry. Calculated 2-D biplane volumetric left ventricular ejection fraction 65%. No regional wall motion abnormalities. Grade 1/3 left ventricular diastolic dysfunction, consistent with low to normal left ventricular filling pressure at rest. RIGHT VENTRICLE:Normal right ventricular chamber size. Normal right ventricular systolic function. Estimated right ventricular systolic pressure 38 mmHg (right atrial pressure of 5 mmHg). ATRIA:Moderately enlarged left atrial size. Left atrial volume index 47 ml/m2. Normal right atrial size by visual estimate. CARDIAC VALVES:Trileaflet aortic valve. Sclerotic aortic valve. Aortic valve systolic mean Doppler gradient 5 mmHg. Trivial aortic valve regurgitation. Thickened mitral valve. Mild mitral valve regurgitation. Normal pulmonary valve. Normal pulmonary valve systolic velocities. Trivial pulmonary valve regurgit ation. Normal tricuspid valve. Mild tricuspid valve regurgitation. OTHER ECHO FINDINGS:Normal inferior vena cava size with normal inspiratory collapse (>50%). Normal mid ascending aorta diameter of 40 mm. No abdominal aortic aneurysm. Normal abdominal aorta Doppler flow pattern. No atrial level shunt by color flow imaging. No intracardiac mass or thrombus, but the left atrial appendage cannot be visualized adequately with transthoracic echo to exclude thrombus in this location. Prominent anteriorepicardial fat layer. No pericardial effusion. For the complete report, see the Order-Level Documents. Echocardiogram: Please see above Labs: Hospital Outpatient Visit on 11/04/2021 Component Date Value ??? Ejection Fraction 11/04/2021 65 ??? Mid-Ascending Aorta 11/04/2021 40 ??? LV Mass Index 11/04/2021 93 ??? LV End-Diastolic Diameter 11/04/2021 51 ??? LV End-Systolic Diameter 11/04/2021 34 ??? LV End-Diastolic Volume 11/04/2021 143 ??? LV End-Systolic Volume 11/04/2021 50 ??? MV E Velocity 11/04/2021 0.50 ??? MV A Velocity 11/04/2021 0.70 ??? MV E/A 11/04/2021 0.71 ??? MV e' Velocity Medial 11/04/2021 0.07 ??? MV e' Velocity Lateral 11/04/2021 0.08 ??? MV E/e' Medial 11/04/2021 7.10 ??? MV E/e' Lateral 11/04/2021 6.30 ??? Left ventricular stroke * 11/04/2021 54 ??? Cardiac Output 11/04/2021 5.74 ??? Cardiac Index 11/04/2021 2.67 ??? LV Interventricular Sept* 11/04/2021 12 ??? LV Posterior Wall Thickn* 11/04/2021 9 ??? LV Relative Wall Thickne* 11/04/2021 35 ??? Tricuspid Annular S??? 11/04/2021 0.12 ??? TR Vmax 11/04/2021 2.87 ??? RA Pressure 11/04/2021 5 ??? RV Systolic Pressure 11/04/2021 38 ??? AV mean gradient 11/04/2021 5 ??? Aortic valve area 11/04/2021 3.28 ??? Aortic Valve Dimensionle* 11/04/2021 0.79 ??? LA Volume Index 11/04/2021 47 ??? Aortic Valve Systolic Pe* 11/04/2021 1.60 Appointment on 11/04/2021 Component Date Value ??? SARS CoV-2 RNA, PCR, Darline* 11/04/2021 Swab, Nasopharynx ??? SARS CoV-2 RNA, PCR 11/04/2021 Undetected Appointment on 11/04/2021 Component Date Value ??? Ventricular Rate ECG/Min 11/04/2021 54 ??? NJ Interval 11/04/2021 176 ??? QRSD Interval 11/04/2021 96 ??? QT Interval 11/04/2021 454 ??? QTC Interval 11/04/2021 430 ??? P [place] 11/04/2021 44 ??? R [place] 11/04/2021 6 ??? T Wave [place] 11/04/2021 33 Hospital Outpatient Visit on 11/04/2021 Component Date Value ??? Source 11/04/2021 Urine, Urine, Midstream ??? Color, U 11/04/2021 Yellow ??? Clarity, U 11/04/2021 Clear ??? Protein, U 11/04/2021 8 ??? Protein/Osmolality 11/04/2021 0.08 ??? Predicted 24 Hr Protein 11/04/2021 89 ??? Predicted Range 11/04/2021 28-280 ??? Microscopy 11/04/2021 Normal ??? Casts, Hyaline 11/04/2021 1-3 ??? pH, U 11/04/2021 5.2 ??? Osmolality, U 11/04/2021 952 ??? Hemoglobin, QL, U 11/04/2021 Negative ??? Leukocyte Esterase, U 11/04/2021 Negative ??? Nitrite, U 11/04/2021 Negative ??? Ketone, U 11/04/2021 Negative ??? Glucose, U 11/04/2021 Negative Hospital Outpatient Visit on 11/04/2021 Component Date Value ??? Potassium, S 11/04/2021 4.6 ??? Sodium, S 11/04/2021 139 ??? Chloride, S 11/04/2021 106 ??? Bicarbonate, S 11/04/2021 24 ??? Anion Gap 11/04/2021 9 ??? BUN (Blood Urea Nitrogen* 11/04/2021 24 ??? Creatinine, S 11/04/2021 1.49 (A) ??? eGFR-Non Black/ A* 11/04/2021 45 (A) ??? eGFR-Black/ Ameri* 11/04/2021 52 (A) ??? Calcium, Total, S 11/04/2021 9.0 ??? Glucose, S 11/04/2021 CANCELED ??? Protein, Total, S 11/04/2021 6.4 ??? Albumin, S 11/04/2021 4.2 ??? Aspartate Aminotransfera* 11/04/2021 22 ??? Alkaline Phosphatase, S 11/04/2021 81 ??? Alanine Aminotransferase* 11/04/2021 18 ??? Bilirubin, Total, S 11/04/2021 0.4 ??? Cholesterol, Total, S 11/04/2021 142 ??? Triglycerides, S 11/04/2021 53 ??? Cholesterol, HDL, S 11/04/2021 52 ??? Calculated LDL 11/04/2021 79 ??? Non HDL Cholesterol 11/04/2021 90 ??? Glucose, P 11/04/2021 101 (A) ??? Last Intake 11/04/2021 13 ASSESSMENT / PLAN #1 Fatigue #2 Pain Chest #3 Coronary Artery Disease With Stable Angina (HCC) #4 Hyperlipidemia On Treatment #5 Hypertension And Chronic Kidney Disease Stage 2 It is a pleasure to see the patient today. He is a delightful 75-year-old male with what I believe is stable exertional angina. He is scheduled for an exercise stress test tomorrow and I will await theresults. I made need to intensify medical therapy and or consider repeat for role for cardiac catheterization if he has a large area of ischemia. He and his asked today if he could come off any of his medications because of the fatigue. I explained that I am concerned he may have occult obstructive sleep apnea as a trigger for the fatigue and would like to leave him on his current medications until we finish the stress test report. I am going to screen him with an overnight oximetry. He is agreeable. His lipids are elevated. His LDL cholesterol should be at or below 70 mg/dL. I am going to prescribeezetimibe 10 mg daily to accompany his dose of atorvastatin. A prescription has been sent to the pharmacy. His exam today suggests aortic sclerosis versus trivial aortic stenosis. The echocardiogram confirmsthis. We will observe this for now. It was a pleasure to see him. I will likely see him back later this week to review the test results. Total Time: 60 minutes Time Counselin minutes documented in this encounter Plan of Treatment Not on filedocumented as of this encounter Visit Diagnoses Diagnosis Fatigue - Primary Pain Chest Coronary Artery Disease With Stable [place] na (HCC) Hyperlipidemia On Treatment Hypertension And Chronic Kidney Disease Stage 2 documented in this encounter Additional Health Concerns Infection Onset Date Last Indicated Resolved Time COVID19 Pending 11/04/2021 11/04/2021 11/04/2021 1:42 PM CDT documented as of this encounter
--- OUTSIDE RECORDS SUMMARY | 2022-05-16 12:22 | XMS_ITS | Encounter Summary ---
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 (HCC) [address] [place] [id number] Social History Tobacco Use Types Packs/Day Years [...] often do you attend jehovah's witness or mandaeism 1 to 4 times per [...] Sign Reading Time Taken Comments Blood Pressure 158/65 11/11/2021 12:00 PM CDT Pulse 54 11/11/2021 12:15 PM CDT Temperature 36.8 ??C (98.2 ??F) 11/11/2021 7:17 AM CDT Respiratory Rate 12 11/11/2021 8:45 AM CDT Oxygen Saturation 95% 11/11/2021 12:15 PM CDT Inhaled Oxygen Concentration - - Weight 92.9 kg (204 lb 12.9 oz) 11/11/2021 7:26 AM CDT Height 184 cm (6' 0.44) 11/11/2021 7:17 AM CDT Body Mass Index 27.44 11/11/2021 7:17 AM CDT documented in this encounter Discharge Instructions AttachmentsThe following attachments cannot be sent through Care Everywhere.Care Following Your Catheter Procedure (Malaysian)documented in this encounter Medications at Time of Discharge Medication Sig Dispensed Refills Start Date End Date atorvastatin (LIPITOR) Take 1 tablet by 0 017 40 mg tablet mouth every evening. tamsulosin (FLOMAX) 0.4 Take 0.4 mg by mouth 0 mg 24 hr capsule every evening. amLODIPine (NORVASC) 5 Take 1 tablet (5 mg 30 tablet 10/2712/08/2021 mg tablet total) by mouth daily. [...] Rarely uses documented as of this encounter Nursing Notes Miranda Shea M.S.N., R.N. - 11/11/2021 12:35 PM CDT The patient???s radial site / dressing is dry and intact. Vital signs are stable. No complaints of chest pain. Palpable right radial pulse. Normal plethysmography of the right index finger with manual ulnar occlusion applied. No hematoma or bleeding present. Old bruising present, this is unchanged. No change in neuro status from prior to procedure. Ambulated without difficulty. Dismissal instructionswere reviewed in detail as per [id number] with patient and family, and they verbalized understanding.Follow up appointment is arranged. Patient was dismissed when discharge criteria was met, accompanied by and daughter. All questions answered. documented in this encounter Plan of Treatment Not on filedocumented as of this encounter Procedures Procedure Name Priority Date/Time Associated Comments Diagnosis CARDIAC CATHETERIZATION Routine 11/11/2021 8:43 Coronary Arter y Results for this AM CDT Disease With procedure are i n Stable Angina the results (HCC) section. CBC WITHOUT STAT 11/11/2021 7:56 Results for this DIFFERENTIAL, B AM CDT procedure ar e in the results section. documented in this encounter Results CORONARY ANGIOGRAPHY (11/11/2021 8:43 AM CDT) Anatomical Region Laterality Modality X-Ray Angiography Specimen (Source) Anatomical Collection Method Collection Time Re ceived Time Location / / Volume Laterality 11/11/2021 8:28 AM CDT Narrative 11/12/2021 9:49 AM CDT For the complete report, see the Order-L evel Documents. PROCEDURE TYPES 1. ??CORONARY ANGIOGRAPHY FINAL DIAGNOSIS 1. ??Severe coronary artery atherosclero sis 2. ??Coronary in-stent restenosis 3. ??Coronary calcification PRE-PROCEDURE DIAGNOSIS 1. ??Coronary Artery Disease With Stable Angina (HCC) CORONARY DIAGNOSTIC SUMMARY Coronary artery dominance is right. The left main coronary artery is 10% obs tructed by a discrete lesion. The middle left anterior descending grayson ry is 80% obstructed by a discrete lesion. The distal segment is normal size, diseased. The first diagonal branch is 50% obstruc elysia by a discrete lesion. The distal segment is small size. The second diagonal branch is 50% obstru cted by a discrete lesion. The distal segment is small size. The ramus intermedius segment is 80% obs tructed by a tubular lesion. The distal segment is normal size, diseased. The first obtuse marginal is 70% obstruc elysia by a discrete lesion. The distal segment is small size. The middle right coronary artery is 30% obstructed by diffuse disease. The distal right coronary artery is 70% obstructed by a discrete lesion. The distal segment is normal size, diseased. CORONARY INTERVENTION SUMMARY The severe LAD lesion is in-stent resten osis. RADIATION DOSE DATA Procedure cumulative skin dose (mGy): 39 4.01 Procedure cumulative dose area product ( Gy-cm2): 20.82 Fluoro Time (Min): 2.94 For the complete report, see the Order-L evel Documents. Renee Drummond M.D. CV CARDIAC CATH PROCEDURES CBC without Differential (11/11/2021 7:56 AM CDT) P athologist Signature Hemoglobin 14.8 13.2 - 11/11/2021 STMA 16.6 g/dL 8:06 AM CDT Hematocrit 42.7 38.3 - 11/11/2021 STMA 48.6 % 8:06 AM CDT Erythrocytes 4.79 4.35 - 11/11/2021 STMA 5.65 8:06 AM CDT x10(12)/L MCV 89.1 78.2 - 11/11/2021 STMA 97.9 fL 8:06 AM CDT RBC Distrib Width 13.0 11.8 - 11/11/2021 STMA 14.5 % 8:06 AM CDT Platelet Count 216 135 - 317 11/11/2021 STMA x10(9)/L 8:06 AM CDT Leukocytes 4.2 3.4 - 9.6 11/11/2021 STMA x10(9)/L 8:06 AM CDT Specimen Anatomical Collection Method Collection Time Receive d Time (Source) Location / / Volume Laterality Blood (Blood, 11/11/2021 7:56 AM 11/12/19 8:04 Venous) CDT AM CDT Von Crawford M.D. LAB BLOOD ADD-ON Performing Organization Address City/State/ZIP Code Phon e Number [facility] - [address] [place], [place] [address] [place] [address] Laboratories-[facility] [address] documented in this encounter Visit Diagnoses Diagnosis Coronary Artery Disease With Stable Omaira na (HCC) - Primary Coronary Artery Disease With Stable [place]ira na (HCC) documented in this encounter Admitting Diagnoses Diagnosis Coronary Artery Disease With Stable [place]maira na (HCC) documented in this encounter Administered Medications Inactive Administered Medications - up to 3 most recent administrations Medication Order MAR Action Action Date Dose Rate Site acetaminophen suppository 650 mg (TYLENO L) 650 mg, rectal, Every 6 hours PRN, mild pain or score 1-3 of 10, Starting on Thu11/11/21 at 0855, Postprocedure (CV), If unable to give orally acetaminophen tablet 1,000 mg (TYLENOL) 1,000 mg, oral, Every 6 hours PRN, mild pain or score 1-3 of 10, Starting on Thu11/11/21 at 0855, Postprocedure (CV) aspirin chewable tablet 324 mg Given 11/11/2021 7:35 AM CDT 324 mg 324 mg, oral, Once, On Thu11/11/21 at 0730, For 1 dose, Preprocedure (CV) clopidogreL tablet 75 mg (PLAVIX) Given 11/11/2021 7:35 AM CDT 75 mg 75 mg, oral, Once, On Thu11/11/21 at 0745, For 1 dose fentaNYL injection 25 mcg (SUBLIMAZE) Given 11/11/2021 8:38 AM CDT 25 mcg 25 mcg, intravenous, Every 2 min PRN, moderate pain or score 4-6 of 10, severe pain or score 7-10 of 10, Administer over 1 minute immediately prior to the procedure. May repeat every 2 minutes to a maximum of 200 mcg, until pain score of 3 or less, or until the patient meets the pain comfort goal. Do not give if respiratory rate is less than 8 breaths/minute, Starting on Thu11/11/21 at 0817, Intraprocedure (CV) Given 11/11/2021 8:20 AM CDT 25 mcg flumazeniL injection 0.2 mg (ROMAZICON) 0.2 mg, intravenous, Once as needed, rev ersal, Starting on Thu11/11/21 at 0817, For 1 dose, Intraprocedure (CV), Administer once if patient has a RASS score of -4, -5 and has a respiratory rate less than 8 breaths/minute. midazolam (PF) injection 0.25 mg (VERSED ) 0.25 mg, intravenous, Every 2 min PRN, s edation, RASS -2, Starting on Thu11/11/21 at 0817, Intraprocedure (CV), May repeat every 2 minutes to a maximum of 5 mg. Do not give if respiratory rate is less than 8 breaths/mi nute. midazolam (PF) injection 0.5 mg (VERSED) Given 11/11/2021 8:26 AM CDT 0.5 mg 0.5 mg, intravenous, Every 2 min PRN, sedation, RASS -1, Starting on Thu11/11/21 at 0817, Intraprocedure (CV), May repeat every 2 minutes for a maximum of 5 mg. Do not give if respiratory rate is less than 8 breaths/minute. midazolam (PF) injection 1 mg (VERSED) 1 mg, intravenous, Every 2 min PRN, max tion, RASS 0, Starting on Thu11/11/21 at 0817, Intraprocedure (CV), May repeat ev osmani 2 minutes for a maximum of 5 mg. Do not give if respiratory rate is less than 8 breaths/minute . NaCl 0.9% infusion New Bag 11/11/2021 7:59 AM CDT 3.5 mL/kg/hr 325 mL/hr 3.5 mL/kg/hr ? 92.9 kg Dosing weight (325.15 mL/hr, rounded to 325 mL/hr), intravenous, Once, On Thu11/11/21 at 0745, For 1 dose, Preprocedure (CV), Administer as soon as possible. Limit total pre-procedure fluid to 1000 mL. NaCl 0.9% infusion 20 mL/hr, intravenous, Once as needed, t o keep vein open, Starting on Thu11/11/21 at 0817, For 1 dose, Intraprocedure (CV) naloxone injection 0.2 mg (NARCAN) 0.2 mg, intravenous, Once as needed, respiratory depre ssion, Starting on Thu11/11/21 at 0817, For 1 dose, Intraproced ure (CV), Administer once if patient has a RASS score of -4, -5 and has a respiratory rate less t brown 8 breaths/minute. ondansetron (PF) injection 4 mg (ZOFRAN) 4 mg, intravenous, Once as needed, nause a, Starting on Thu11/11/21 at 0855, For 1 dose, Postprocedure (CV), First line option sodium chloride 0.9 % injection 10 mL 10 mL, intravenous, As needed, line care, Starting on Thu11/11/21 at 0725, Preprocedure (CV), Peripheral Intravenous Catheter and Rapid Infusion Catheter, prior to blood sampling, post blood transfusion or pos t blood sampling sodium chloride 0.9 % injection 10 mL 10 mL, intravenous, As needed, line care, Starting on Thu11/11/21 at 0817, Intraprocedure (CV), Peripheral Intraven ous Catheter and Rapid Infusion Catheter, prior to blood sampling, post blood transfusion or pos t blood sampling sodium chloride 0.9 % injection 3 mL 3 mL, intravenous, As needed, line care, Starting on M 11/11/21 at 0725, Preprocedure (CV), Prior to and followin g infusion and between multiple consecutive infusions: sodium chloride 0.9 % injection sodium chloride 0.9 % injection 3 mL 3 mL, intravenous, Every 12 hours scheduled, First dos e on Thu11/11/21 at 0900, Preprocedure (CV), Peripheral Intravenous Catheter and Rapid Infusion Catheter, when no infusion to maintain patency sodium chloride 0.9 % injection 3 mL 3 mL, intravenous, As needed, line care, Starting on M 11/11/21 at 0817, Intraprocedure (CV), Prior to and following infusion a nd between multiple consecutive infusions: sodium chloride 0.9 % injection sodium chloride 0.9 % injection 3 mL 3 mL, intravenous, Every 12 hours scheduled, First dos e on Thu11/11/21 at 0900, Intraprocedure (CV), Peripheral Intraven ous Catheter and Rapid Infusion Catheter, when no infusion to maintain patency documented in this encounter Active and Recently Administered Medications Times are shown in CDT. Scheduled Medication Order 11/09/2021 11/10/2021 11/11/2021 aspirin chewable tablet 324 mg (COMPLETED) 734 (Given - Provider: Janet Lomeli RStefano) 324 mg, oral, Once, On Thu11/11/21 at 0730, For 1 dose, Preproce dure (CV) clopidogreL tablet 75 mg (PLAVIX) (COMPLETED) 734 (Given - Provider: Janet Lomeli R.N.) 75 mg, oral, Once, On Thu11/11/21 at 0745, For 1 dose NaCl 0.9% infusion (COMPLETED) 0 759 (New Bag - Provider: Janet Lomeli R.N.) 3.5 mL/kg/hr ? 92.9 kg Dosing weight (325.15 mL/hr, rounded to 325 mL/hr), intravenous, Once, On Thu11/11/21 at 0745, For 1 dose, Preprocedure (CV), Administer as soon as possible. Limit total pre-procedure fluid to 1000 mL. sodium chloride 0.9 % injection 3 mL 0900 (Due) 3 mL, intravenous, Every 12 hours schedu led, First dose on Thu11/11/21 at 0900, Preprocedure (CV), Peripheral Intravenous Catheter and Rapid Infusion Catheter, when no infusion to maintain patency sodium chloride 0.9 % injection 3 mL 0900 (Due) 3 mL, intravenous, Every 12 hours schedu led, First dose on Thu11/11/21 at 0900, Intraprocedure (CV), Peripheral Intravenous Catheter and Rapid Infusion Catheter, when no infusion to maintain patency PRN Medication Order 11/09/2021 11/10/2021 11/11/2021 acetaminophen suppository 650 mg (TYLENOL)(Linked Group 1) 650 mg, rectal, Every 6 hours PRN, mild pain or score 1-3 of 10, Starting on Thu11/11/21 at 0855, Postprocedure (CV), If unable to give orally acetaminophen tablet 1,000 mg (TYLENOL)(Linked Group 1) 1,000 mg, oral, Every 6 hours PRN, mild pain or score 1-3 of 10, Starting on Thu11/11/21 at 0855, Postprocedure (CV) fentaNYL injection 25 mcg (SUBLIMAZE) 0820 (Given - Provider: Kim Bauer R.N.)0838 (Given - Provider: Kim Bauer R.N.) 25 mcg, intravenous, Every 2 min PRN, mo derate pain or score 4-6 of 10, severe pain or score 7-10 of 10, Administer over 1 minute immediately prior to the procedure. May repeat every 2 minutes to a maxi mum of 200 mcg, until pain score of 3 or less, or until the patient meets the pain comfort goal. Do not give if respiratory rate is less than 8 breaths/minute, Starting on Thu11/11/21 at 0817, Intraprocedure (CV) flumazeniL injection 0.2 mg (ROMAZICON) 0.2 mg, intravenous, Once as needed, rev ersal, Starting on Thu11/11/21 at 0817, For 1 dose, Intraprocedure (CV), Administer once if patient has a RASS score of -4, -5 and has a respiratory rate less than 8 breaths/minute. heparin (porcine) 1,000 unit/mL injection (CANCELED) 0828 (Given - Provider: Kim Bauer R.N.) As needed, Starting on Thu11/11/21 at 0828, Intraprocedure (CV) iohexoL 350 mg iodine/mL solution (OMNIPAQUE) (CANCELED) 0844 (Given - Provider: Von Crawford M.D.) As needed, Starting on Thu11/11/21 at 0844, Intraprocedure (CV) iopromide injection (ULTRAVIST) 0843 (Given - Provider: Von Crawford M.D.) As needed, Starting on Thu11/11/21 at 0843, Intraprocedure (CV) lidocaine 10 mg/mL (1 %) injection (XYLOCAINE) (CANCELED) 0823 (Given - Provider: Zurdo Geiger M.D.) As needed, Starting on Thu11/11/21 at 0823, Intraprocedure (CV) midazolam (PF) injection 0.25 mg (VERSED) 0.25 mg, intravenous, Every 2 min PRN, s edation, RASS -2, Starting on Thu11/11/21 at 0817, Intraprocedure (CV), May repeat every 2 minutes to a maximum of 5 mg. Do not give if respiratory rate is less than 8 breaths/minute. midazolam (PF) injection 0.5 mg (VERSED) (COMPLETED) 0820 (Given - Provider: Kim Bauer R.N.) 0.5 mg, intravenous, Once as needed, sed ation, Starting on Thu11/11/21 at 0817, For 1 dose, Intraprocedure (CV) midazolam (PF) injection 0.5 mg (VERSED) 0826 (Given - Provider: Kim Bauer R.N.) 0.5 mg, intravenous, Every 2 min PRN, se dation, RASS -1, Starting on Thu11/11/21 at 0817, Intraprocedure (CV), May repeat every 2 minutes for a maximum of 5 mg. Do not give if respiratory rate is less than 8 breaths/minute. midazolam (PF) injection 1 mg (VERSED) 1 mg, intravenous, Every 2 min PRN, max tion, RASS 0, Starting on Thu11/11/21 at 0817, Intraprocedure (CV), May repeat every 2 minutes for a maximum of 5 mg. Do not give if respiratory rate is less than 8 breaths/minute. NaCl 0.9% infusion 20 mL/hr, intravenous, Once as needed, t o keep vein open, Starting on Thu11/11/21 at 0817, For 1 dose, Intraprocedure (CV) naloxone injection 0.2 mg (NARCAN) 0.2 mg, intravenous, Once as needed, res piratory depression, Starting on Thu11/11/21 at 0817, For 1 dose, Intraprocedure (CV), Administer once if patient has a RASS score of -4, -5 and has a respiratory rate less than 8 breaths/minute. nitroglycerin SL tablet (NITROSTAT) (CANCELED) 0823 (Given - Provider: Kim Bauer R.N.) As needed, Starting on Thu11/11/21 at 0823, Intraprocedure (CV) ondansetron (PF) injection 4 mg (ZOFRAN) 4 mg, intravenous, Once as needed, nause a, Starting on Thu11/11/21 at 0855, For 1 dose, Postprocedure (CV), First line option sodium chloride 0.9 % injection 10 mL 10 mL, intravenous, As needed, line care , Starting on Thu11/11/21 at 0725, Preprocedure (CV), Peripheral Intravenous Catheter and Rapid Infusion Catheter, prior to blood sampling, post blood transfusion or post blood sampling sodium chloride 0.9 % injection 10 mL 10 mL, intravenous, As needed, line care , Starting on Thu11/11/21 at 0817, Intraprocedure (CV), Peripheral Intravenous Catheter and Rapid Infusion Catheter, prior to blood sampling, post blood transfusion or post blood sampling sodium chloride 0.9 % injection 3 mL 3 mL, intravenous, As needed, line care, Starting on Thu11/11/21 at 0725, Preprocedure (CV), Prior to and following infusion and between multiple consecutive infusions: sodium chloride 0.9 % injection sodium chloride 0.9 % injection 3 mL 3 mL, intravenous, As needed, line care, Starting on Thu11/11/21 at 0817, Intraprocedure (CV), Prior to and following infusion and between multiple consecutive infusions: sodium chloride 0.9 % injection Linked Groups Order Group 1: acetaminophen tablet 1,000 mg (TYLENOL)Jump to med 1,000 mg, oral, Every 6 hours PRN, mild pain or score 1-3 of 10, Starting on Thu11/11/21 at 0855, Postprocedure (CV) Or acetaminophen suppository 650 mg (TYLENOL)Jump to med 650 mg, rectal, Every 6 hours PRN, mild pain or score 1-3 of 10, Starting on Thu11/11/21 at 0855, Postprocedure (CV)
If unable to give orally
documented in this encounter
--- OUTSIDE RECORDS SUMMARY | 2022-05-16 12:22 | XMS_ITS | Encounter Summary ---
:1945 Author Organization [facility] Address [address] [place] [address] Care Team Providers Name Role Phone Unavailable Primary Care Provider Unavailable Encounter Details Date Type Department Care Team Description 11/11/2021 Surgery Division of Cardiovascular Von Crawford, Coronary Angiography Diseases in [facility] [address] [facility] [address] [place] [id number] [phone] Social History Tobacco Use Types Packs/Day Years [...] or relatives? How often do you attend restorationist or muslim 1 to 4 times per year 11/08/2021 services? Do you belong to any clubs or organizations Yes 11/08/2021 such as restorationist groups, unions, fraternal or athletic groups, or [...] Sign Reading Time Taken Comments Blood Pressure 140/68 11/11/2021 7:17 AM CDT Pulse 57 11/11/2021 7:17 AM CDT Temperature 36.8 ??C (98.2 ??F) 11/11/2021 7:17 AM CDT Respiratory Rate 16 11/11/2021 7:17 AM CDT Oxygen Saturation 95% 11/11/2021 7:17 AM CDT Inhaled Oxygen Concentration - - Weight 92.9 kg (204 lb 12.9 oz) 11/11/2021 7:26 AM CDT Height 184 cm (6' 0.44) 11/11/2021 7:17 AM CDT Body Mass Index 27.44 11/11/2021 7:17 AM CDT documented in this encounter Discharge Instructions AttachmentsThe following attachments cannot be sent through Care Everywhere.Care Following Your Catheter Procedure (Arabic)documented in this encounter Medications at Time of [...] Dismissal instructionswere reviewed in detail as per [id number] with patient and family, and they verbalized [...] Organization Address City/State/ZIP Code Phon e Number [facility] - [address] [place], [place] [address] [place] [address] [facility] [address] documented in [...] than 8 breaths/minute. heparin (porcine) 1,000 unit/mL Given 11/11/2021 8:28 AM CDT 5,0 00 Units injection As needed, Starting on Thu11/11/21 at 0828, Intraprocedure (CV) iohexoL 350 mg iodine/mL solution (OMNIP AQUE) Given 11/11/2021 8:44 AM CDT 50 mL As needed, Starting on Thu11/11/21 at 0844, Intraprocedure (CV) iopromide injection (ULTRAVIST) Given 11/11/2021 8:43 AM CDT 50 mL As needed, Starting on Thu11/11/21 at 0843, Intraprocedure (CV) lidocaine 10 mg/mL (1 %) injection Given 11/11/2021 8:23 AM CDT 2 mL Right Wrist (XYLOCAINE) As needed, Starting on Thu11/11/21 at 0823, Intraprocedure (CV) midazolam (PF) injection 0.25 mg (VERSED ) 0.25 mg, intravenous, Every 2 min PRN, s edation, RASS -2, Starting on Thu11/11/21 at 0817, Intraprocedure (CV), May repeat every 2 minutes to a maximum of 5 mg. Do not give if respiratory rate is less than 8 breaths/mi nute. midazolam (PF) injection 0.5 mg (VERSED) Given 11/11/2021 8:20 AM CDT 0.5 mg 0.5 mg, intravenous, Once as needed, sedation, Starting on Thu11/11/21 at 0817, For 1 dose, Intraprocedure (CV) midazolam (PF) injection 0.5 mg (VERSED) Given [...] respiratory rate less t brown 8 breaths/minute. nitroglycerin SL tablet (NITROSTAT) Given 11/11/2021 8:23 AM CDT 0.4 mg Tongu e As needed, Starting on Thu11/11/21 at 0823, [...] As needed, line care, Starting on M on 11/11/21 at 0725, Preprocedure (CV), Prior to [...] As needed, line care, Starting on M on 11/11/21 at 0817, Intraprocedure (CV), Prior to [...] (COMPLETED) 734 (Given - Provider: Janet Lomeli RShaniceNShanice) 324 mg, oral, Once, On Thu11/11/21 at 0730, For 1 dose, Preproce dure (CV) clopidogreL tablet 75 mg (PLAVIX) (COMPLETED) 734 (Given - Provider: Janet Lomeli R.NShanice) 75 mg, oral, Once, On Thu11/11/21 at 0745, For 1 dose NaCl 0.9% infusion (COMPLETED) 0 759 (New Bag - Provider: Janet Lomeli, R.NShanice) 3.5 mL/kg/hr ? 92.9 kg Dosing weight [...] (SUBLIMAZE) 0820 (Given - Provider: Kim Bauer RReed.)0838 (Given - Provider: Kim Bauer R.N.) 25 [...]
--- OUTSIDE RECORDS SUMMARY | 2022-05-16 12:22 | XMS_ITS | Encounter Summary ---
:1945 Author Organization [facility] Address [address] [place] [address] Care Team Providers Name Role Phone Unavailable Primary Care Provider Unavailable Reason for Visit Reason Comments He knows to take 300 mg (4 tabs) of clopidgrel Thursday night He wants to know what to do about his other medication s mirtha Encounter Details Date Type Department Care Team Description 11/06/2021 Clinical Department of Renee Drummond He knows to ta ben [facility] Alesia Guzmán 300 mg (4 tabs) of Medicine in [place], [address] [facility] dgrel Thursday [facility] night; He wants to [address] [facility], know what to do [facility] [place] [phone] medications mirtha [phone] Social History Tobacco Use Types Packs/Day Years [...] or relatives? How often do you attend yazidism or nondenominational 1 to 4 times per year 11/08/2021 services? Do you belong to any clubs or organizations Yes 11/08/2021 such as yazidism groups, unions, fraternal or athletic groups, or [...] or slept in a residential (including now)? Sex Assigned at Date Recorded Male 11/08/2021 12:12 PM CDT documented as of this encounter Miscellaneous Notes Telephone Encounter - Ricki Snyder - 11/06/2021 4:53 PM CDT SUBJECTIVE CHIEF COMPLAINT / REASON FOR CALL He knows to take 300 mg (4 tabs) of clopidgrel Thursday night and He wants to know what to do about his other medications prior to Thursday cath Name of caller/relationship to the patient:Angel Patient expects communication via portal: NO Phone number: [phone] Request topic and what needs to be addressed? Mr. Doran knows to take his 4 tabs of clopidogrel Thursday night (300 mg total). He has questions about taking his other medications prior to his cath Thursday morning. He requests a phone call [phone]. I will send your message to Dr. Drummond's Care Team. The message will be triaged by the nurses and answered based on priority. Depending on the triage, it could be as long a couple business days before someone gets back to you. documented in this encounter Plan of Treatment Not on filedocumented as of this encounter Visit Diagnoses Not on filedocumented in this encounter Additional Health Concerns Infection Onset Date Last Indicated Resolved Time COVID19 Pending 11/06/2021 11/08/2021 11/08/2021 9:52 PM CDT documented as of this encounter
--- OUTSIDE RECORDS SUMMARY | 2022-05-16 12:22 | XMS_ITS | Encounter Summary ---
:1945 Author Organization [facility] Address [address] [place] [address] Care Team Providers Name Role Phone Unavailable Primary Care Provider Unavailable Encounter Details Date Type Department Care Team Description 11/04/2021 Hospital Encounter Department of Renee Drummond [facility] ; Laboratory Medicine Alesia Guzmán Hyperlipidemia Mixed; and Pathology, [address] [place] [address] Angina Stable (HCC); [facility], in [place], [place] Frequen cy Urinary Formerly [facility] [address] [place] [phone] [address] [facility] (Work) [place], [place] [phone] [address] (Fax) [phone] Social History Tobacco Use Types Packs/Day Years [...] or relatives? How often do you attend islam or islam 1 to 4 times per year 11/08/2021 services? Do you belong to any clubs or organizations Yes 11/08/2021 such as islam groups, unions, fraternal or athletic groups, or [...] or slept in a jail (including now)? Sex Assigned at Date Recorded [...] Associated Comments Diagnosis LIPID PANEL, S Routine 11/04/2021 7:54 AM Pain Chest Results for this CDT Hyperlipidemia procedure are in Mixed the results Angina Stable (HCC) section. TESTOSTERONE, TOT AND Routine 11/04/2021 7:54 AM Frequency Uri nary Results for this FR, S CDT procedure are i n the results section. GLUCOSE, FASTING, S/P Routine 11/04/2021 7:54 AM Frequency Uri nary Results for this CDT procedure are i n the results section. COMPREHENSIVE Routine 11/04/2021 7:54 AM Pain Chest Results for this METABOLIC PANEL, S/P CDT Hyperlipidemia proce dure are in Mixed the results Angina Stable (HCC) section. documented in this encounter Results Testosterone, Total and Free (11/04/2021 7:54 AM CDT) athologist Signature Testosterone, 10.8 3.08 - 11.3 11/07/2021 SDSC Free, S ng/dL 9:40 AM CDT Comment: ----ADDITIONAL INFORMATION---- Testing performed by Radha michelle This test was developed and its performa nce characteristics determined by [facility] in a manner consistent with CLIA requirements. This test has not been cleared or approved by the U.[place]. Baljit d and Drug Administration. Testosterone, Total by Mass 718 240 - 950 ng/dL 2021 3:04 PM CDT SDSC Spectrometry, Serum Comment: ----ADDITIONAL INFORMATION---- Testing performed by Liquid Chromatograp hy-Tandem Mass Spectrometry (LC-MS/MS). This test was developed and its performa nce characteristics determined by [facility] in a manner consistent with CLIA requirements. This test has not been cleared or approved by the U.S. Baljit d and Drug Administration. Specimen Anatomical Collection Method Collection Time Receive d Time (Source) Location / / Volume Laterality Blood (Blood, 11/04/2021 7:54 AM 11/05/19 22 Venous) CDT 10:16 AM CDT Suzette Arias P.A.-C. LAB BLOOD NON ADD-ON Performing Organization Address City/State/ZIP Code Phon e Number [facility] [address] [place], [place] [address] [facility] [place] [address] Laboratory Medicine and Pathology [address] [place] (ABNORMAL) Glucose, Fasting (11/04/2021 7:54 AM CDT) athologist Signature Glucose, P 101 (H) 70 - 100 11/04/2021 DTL mg/dL 9:07 AM CDT Last Intake 13 hr 11/04/2021 DTL 7:54 AM CDT Specimen Anatomical Collection Method Collection Time Receive d Time (Source) Location / / Volume Laterality Blood (Blood, 11/04/2021 7:54 AM 11/05/19 8:50 Venous) CDT AM CDT Suzette Arias P.A.-C. LAB BLOOD NON ADD-ON Performing Organization Address City/State/ZIP Code Phon e Number [facility] - [address] [place] [address] [facility] [place] [address] Laboratories-[facility] 200 [facility] Lipid Panel (11/04/2021 7:54 AM CDT) athologist Signature Cholesterol, 142 mg/dL 11/04/2021 DTL Total 9:11 AM CDT Comment: ----REFERENCE VALUE---- Desirable: < 200 Borderline high: 200 - 239 High: > or = 240 Triglycerides 53 mg/dL 11/04/2021 9:11 AM CDT DTL Comment: ----REFERENCE VALUE---- Normal: <150 Borderline high: 150-199 High: 200-499 Very high: > or =500 Cholesterol, HDL, S 52 >=40 mg/dL 11/04/2021 9:11 AM CDT DTL Calculated LDL 79 mg/dL 11/04/2021 9:11 AM CDT DT L Comment: ----REFERENCE VALUE---- Desirable: <100 mg/dL Above Desirable: 100-129 mg/dL Borderline High: 130-159 mg/dL High: 160-189 mg/dL Very High: >=190 mg/dL Cholesterol, Non-HDL, Calculated 90 mg/dL 022 9:11 AM CDT DTL Comment: ----REFERENCE VALUE---- Desirable: <130 Above Desirable: 130-159 Borderline high: 160-189 High: 190-219 Very high: > or =220 Specimen Anatomical Collection Method Collection Time Receive d Time (Source) Location / / Volume Laterality Blood (Blood, 11/04/2021 7:54 AM 11/05/19 8:50 Venous) CDT AM CDT Renee Drummond M.D. LAB BLOOD ADD-ON Performing Organization Address City/State/ZIP Code Phon e Number [facility] - 200 [place], [place] [address] [place] [address] [facility] 200 [facility] (ABNORMAL) Comprehensive Metabolic Panel (11/04/2021 7:54 AM CDT) Analysis Performed At Patho logist Time Signature Potassium, S 4.6 3.6 - 5.2 11/04/2021 DTL mmol/L 9:08 AM CDT Sodium, S 139 135 - 145 11/04/2021 DTL mmol/L 9:08 AM CDT Chloride, S 106 98 - 107 11/04/2021 DTL mmol/L 9:08 AM CDT Bicarbonate, S 24 22 - 29 11/04/2021 DTL mmol/L 9:08 AM CDT Anion Gap 9 7 - 15 11/04/2021 DTL 9:08 AM CDT BUN (Blood Urea 24 8 - 24 11/04/2021 DTL Nitrogen), S mg/dL 9:08 AM CDT Creatinine 1.49 (H) 0.74 - 11/04/2021 DTL 1.35 mg/dL 9:08 AM CDT eGFR-Non 45 (L) >=60 11/04/2021 DTL Black/ mL/min/BSA 9:08 AM CDT [place] Comment: ----ADDITIONAL INFORMATION---- Estimated GFR calculated using the 2009 CKD_EPI creatinine equation. eGFR-Black/ 52 (L) >=60 mL/min/BSA 2021 9:08 AM CDT DTL Comment: ----ADDITIONAL INFORMATION---- Estimated GFR calculated using the 2009 CKD_EPI creatinine equation. Calcium, Total, S 9.0 8.8 - 10.2 mg/dL 11/04/2021 9:08 AM CDT DTL Glucose, S CANCELED mg/dL 11/04/2021 8:50 AM CDT DTL Comment: Duplicate test request. Result canceled by the ancillary. Protein, Total, S 6.4 6.3 - 7.9 g/dL 11/04/2021 9:08 A M CDT DTL Albumin, S 4.2 3.5 - 5.0 g/dL 11/04/2021 9:08 AM CDT D TL Aspartate Aminotransferase (AST), S 22 8 - 48 U/L 02/2022 9:08 AM CDT DTL Alkaline Phosphatase, S 81 40 - 129 U/L 11/04/2021 9: 08 AM CDT DTL Alanine Aminotransferase (ALT), S 18 7 - 55 U/L 11/04 9:08 AM CDT DTL Bilirubin, Total, S 0.4 <=1.2 mg/dL 11/04/2021 9:08 AM CDT DTL Specimen Anatomical Collection Method Collection Time Receive d Time (Source) Location / / Volume Laterality Blood (Blood, 11/04/2021 7:54 AM 11/05/19 22 8:49 Venous) CDT AM CDT Renee Drummond M.D. LAB BLOOD ADD-ON Performing Organization Address City/State/ZIP Code Phon e Number [facility] - [address] [place], [place] [address] [facility] [place] [address] Laboratories-[facility] [address] documented in this encounter Visit Diagnoses Diagnosis Pain Chest Hyperlipidemia Mixed Angina Stable (HCC) Frequency Urinary documented in this encounter
--- OUTSIDE RECORDS SUMMARY | 2022-05-16 12:22 | XMS_ITS | Encounter Summary ---
:1945 Author Organization [facility] Address [address] [place] [address] Care Team Providers Name Role Phone Unavailable Primary Care Provider Unavailable Reason for Visit Reason Comments Pre-visit Testing Orders Encounter Details Date Type Department Care Team Description 11/06/2021 Clinical Department of Renee Drummond Pre-visit Test ing Communication Cardiovascular Alesia Guzmán [facility] Medicine in [place] [address] [address] [facility] [address] [phone] Social History Tobacco Use Types Packs/Day Years [...] or relatives? How often do you attend taoism or amish 1 to 4 times per year 11/08/2021 services? Do you belong to any clubs or organizations Yes 11/08/2021 such as taoism groups, unions, fraternal or athletic groups, or [...] place to sleep or slept in a snf (including now)? Sex Assigned at Date Recorded Male 11/08/2021 12:12 PM CDT documented as of this encounter Plan of Treatment Not on filedocumented as of this encounter Visit Diagnoses Diagnosis Coronary Artery Disease With Stable Omaira na (HCC) - Primary documented in this encounter Additional Health Concerns Infection Onset Date Last Indicated Resolved Time COVID19 Pending 11/06/2021 11/08/2021 11/08/2021 9:52 PM CDT documented as of this encounter
--- OUTSIDE RECORDS SUMMARY | 2022-05-16 12:22 | XMS_ITS | Encounter Summary ---
:1945 Author Organization [facility] Address [address] [place] [address] Care Team Providers Name Role Phone Unavailable Primary Care Provider Unavailable Reason for Referral Outpatient (Routine) - Closed Specialty Diagnoses / Procedures Referred By Contact Refer red To Contact Cardiovascular Surgery Diagnoses Coronary Artery Disease With Stable Angina (HCC) [facility] [address] [place] [address] Referral ID Status Reason Start Date Expiration Date Visits Requ ested Visits Authorized [id number] Closed 11/11/2021 11/11/2022 1 1 Scheduling Instructions BOB Encounter Details Date Type Department Care Team Description 11/11/2021 Orders Only Department of Renee Drummond Coronary Arter y Disease With Stable Angina (HCC) (Primary Dx); Cardiovascular Medicine Deja Guzmán Hyperlipidemia On Treatment in [facility] 200 [facility] 200 [place] [address] [phone] Social History Tobacco Use Types Packs/Day Years [...] How often do you attend confucianist or tenriism 1 to 4 times per year 11/08/2021 [...] Type Priority Associated Order Schedule Diagnoses Cardiovascular Surgery Outpatient Referral Routine Coronary Ar koko Expected: - General consult Disease With 11/11/2021 (clinic) Stable Angina (Approximate), (HCC) Expires: Hyperlipidemia On 02/11/2023 Treatment documented as of this encounter Visit Diagnoses Diagnosis Coronary Artery Disease With Stable Omaira na (HCC) - Primary Hyperlipidemia On Treatment documented in this encounter
--- OUTSIDE RECORDS SUMMARY | 2022-05-16 12:22 | XMS_ITS | Encounter Summary ---
:1945 Author Organization [facility] Address [address] [place] [address] Care Team Providers Name Role Phone Unavailable Primary Care Provider Unavailable Reason for Referral Outpatient (Routine) - Closed Specialty Diagnoses / Procedures Referred By Contact Refer red To Contact Cardiovascular Disease Renee Drummond [place] M.D. 200 [place] [address] Referral ID Status Reason Start Date Expiration Date Visits Requ ested Visits Authorized [id number] Closed 11/05/2021 11/05/2022 1 1 Reason for Visit Appointment Request (Routine) - Closed Specialty Diagnoses / Procedures Referred By Contact Refer red To Contact Cardiovascular Disease Referral ID Status Reason Start Date Expiration Date Visits Requ ested Visits Authorized [id number] Closed 11/05/2021 11/05/2022 1 Encounter Details Date Type Department Care Team Description 11/05/2021 Office Visit Department of Renee Drummond Coronary Arter y Disease With Stable Angina (HCC) (Primary Dx); Cardiovascular Medicine Deja Guzmán Hyperlipidemia On Treatment in [facility] 200 [facility] 200 [place] [address] [phone] Social History Tobacco Use Types Packs/Day Years [...] or relatives? How often do you attend jainism or denominational 1 to 4 times per year 11/08/2021 services? Do you belong to any clubs or organizations Yes 11/08/2021 such as jainism groups, unions, [employer] or athletic groups, or school groups? How [...] encounter Progress Notes Renee Drummond M.D. - 11/05/2021 1:00 PM CDT Images from the original note were not included. Cardiovascular progress note Subjective: The patient is a delightful 75-year-old male with exertional angina. I saw him yesterday and orderedan exercise sestamibi scan today. He had significant ischemia on the exercise electrocardiogram today which required treatment with nitroglycerin to resolve both symptoms and the electrocardiogram changes. He returns now is feeling well. Impression/Plan 1. Coronary artery disease with stable angina 2. Abnormal exercise stress test at excellent workload 3. Hypertensive response with exercise 4. Dyslipidemia I discussed the results with And Mrs. Doran. I recommend a cardiac catheterization given the frequency of his symptoms, the mild acceleration in their nature and the degree of ST segment deviation on his stress test. I am reassured by the small area of ischemia but I am worried this may be some what of a false negative stress imaging test. He is agreeable to proceed with cardiac catheterization next week and percutaneous coronary revascularization if appropriate. He will start amlodipine 5 mg daily today along with ezetimibe 10 mg daily to further lower his LDL cholesterol. He will return on Thursday for his catheterization. He will take 300 mg of clopidogrel on Thursday night. He is prepared to accept percutaneous revascularization if appropriate. I have answered questions today. Total time:45 minutes Counseling time:35 minutes documented in this encounter Plan of Treatment Scheduled Referrals Name Type Priority Associated Order Schedule Diagnoses Cardiovascular Disease Outpatient Referral Routine Expected: nurse visit (clinic) 022 (Approximate), Expires: 02/05/2023 documented as of this encounter Visit Diagnoses Diagnosis Coronary Artery Disease With Stable Omaira na (HCC) - Primary Hyperlipidemia On Treatment documented in this encounter
--- OUTSIDE RECORDS SUMMARY | 2022-05-16 12:22 | XMS_ITS | Encounter Summary ---
:1945 Author Organization [facility] Address [address] [place] [address] Care Team Providers Name Role Phone Unavailable Primary Care Provider Unavailable Encounter Details Date Type Department Care Team Description 10/24/2021 Clinical Communication Department of Urology Santy Arias, in [facility] 200 [facility] 200 [place] [phone] Social History Tobacco Use Types Packs/Day Years Used Date Smoking Tobacco: Former Alcohol Habits Answer Date Recorded How often [...] How often do you attend hinduism or yazdanism 1 to 4 times per [...] or slept in a [facility] (including now)? Sex Assigned at Date Recorded Male 11/08/2021 12:12 PM CDT documented as of this encounter Plan of Treatment Not on filedocumented as of this encounter Results Urinalysis with Microscopic: Urine, Midstream (11/04/2021 10:24 [...] Organization Address City/State/ZIP Code Phon e Number [facility] - [address] [place], [place] [address] [facility] [place] [place] [address] Laboratories-[facility] [address] [facility] Testosterone, Total and Free (11/04/2021 7:54 AM CDT) P athologist Signature Testosterone, 10.8 3.08 - 11.3 11/07/2021 SDSC Free, S ng/dL 9:40 AM CDT Comment: ----ADDITIONAL INFORMATION---- Testing performed by Radha saba. This test was developed and its performa nce characteristics determined by [facility] in a manner consistent with CLIA requirements. This test has not been cleared or approved by the U.S. Baljit d and Drug Administration. Testosterone, Total by Mass 718 240 - 950 ng/dL 2021 3:04 PM CDT [facility] Spectrometry, Serum Comment: ----ADDITIONAL INFORMATION---- Testing performed by Liquid Chromatograp hy-Tandem Mass Spectrometry (LC-MS/MS). This test was developed and its performa nce characteristics determined by [facility] in a manner consistent with CLIA requirements. This test has not been cleared or approved by the U.S. Baljit d and Drug Administration. Specimen Anatomical Collection Method Collection Time Receive d Time (Source) Location / / Volume Laterality Blood (Blood, 11/04/2021 7:54 AM 11/05/19 22 Venous) CDT 10:16 AM CDT Suzette Arias P.A.-C. LAB BLOOD NON ADD-ON Performing Organization Address City/[facility] Code Phon e Number [facility] [address] [place], [place] [address] [facility] [place] [address] Laboratory Medicine and Pathology [address] [place] (ABNORMAL) Glucose, Fasting (11/04/2021 7:54 AM CDT) P athologist Signature Glucose, P 101 (H) 70 - 100 11/04/2021 DTL mg/dL 9:07 AM CDT Last Intake 13 hr 11/04/2021 DTL 7:54 AM CDT Specimen Anatomical Collection Method Collection Time Receive d Time (Source) Location / / Volume Laterality Blood (Blood, 11/04/2021 7:54 AM 11/05/19 22 8:50 Venous) CDT AM CDT Suzette Arias P.A.-C. LAB BLOOD NON ADD-ON Performing Organization Address City/[facility] Code Phon e Number [facility] - [address] [place], [place] [address] [facility] [place] [address] Laboratories-[facility] [address] documented in this encounter Visit Diagnoses Diagnosis Frequency Urinary - Primary documented in this encounter
--- OUTSIDE RECORDS SUMMARY | 2022-05-16 12:22 | XMS_ITS | Encounter Summary ---
:1945 Author Organization [facility] Address [address] [place] [address] Care Team Providers Name Role Phone Unavailable Primary Care Provider Unavailable Encounter Details Date Type Department Care Team Description 11/08/2021 Lab Urgent Care in [place], Renee Drummond , Preprocedural Lab Exam; [facility].Con Contact With And (Suspected) Exposure To COVID-[address] [place] [address] [place], [place] [phone] Social History Tobacco Use Types Packs/Day Years [...] or relatives? How often do you attend roman catholic or yarsani 1 to 4 times per year 11/08/2021 services? Do you belong to any clubs or organizations Yes 11/08/2021 such as roman catholic groups, unions, fraternal or athletic groups, [...] Name Priority Date/Time Associated Diagnosis Comme nts SARS CORONAVIRUS-2 STAT 11/08/2021 8:00 AM Preprocedu ral Lab Exam Results for this RNA, V CDT Contact With And procedure a re in (Suspected) Exposure the res ults To COVID-19 section. documented in this encounter Results SARS Coronavirus-2 RNA, V Asymptomatic (11/08/2021 8:00 AM CDT) [facility] Method Time Signature SARS-CoV-2 Swab, 11/08/2021 MKTO Specimen Nasopharynx 9:52 PM CDT Source SARS CoV-2 Undetected Undetected 11/08/2021 MKTO RNA, TMA 9:52 PM CDT Comment: SARS-CoV-2 RNA absent. This result does not rule out COVID-19 in the patient, as the sensitivity of the test depends o n the timing of the specimen collection and the quality of the specim en. Result should be correlated with patient's history and clinical presentat ion. ----ADDITIONAL INFORMATION---- This molecular amplification test was pe rformed using the Aptima SARS-CoV-2 assay ([employer] on the [employer] tem under emergency use authorization (EUA) by the U.S. Food and Drug Administ ration. Fact sheets for this EUA assay can be fo und at the following links: For Healthcare Providers: https://www.fd a.gov/media/110027/download For Patients: https://www.fda.gov/media/ 101017/download Specimen Anatomical Collection Method Collection Time Receive d Time (Source) Location / / Volume Laterality Varies 11/08/2021 8:00 AM 4:10 (Nasopharynx) CDT PM CDT Renee Drummond M.D. LAB MICROBIOLOGY - GENERAL O RDERABLES Performing Organization Address City/State/[facility] Code Phon e Number [facility]- [address] [place] [address] [place] [address] System [address] documented in this encounter Visit Diagnoses Diagnosis Preprocedural Lab Exam Contact With And (Suspected) Exposure To COVID-19 documented in this encounter Additional Health Concerns Infection Onset Date Last Indicated Resolved Time COVID19 Pending 11/06/2021 11/08/2021 11/08/2021 9:52 PM CDT documented as of this encounter
--- OUTSIDE RECORDS SUMMARY | 2022-05-16 12:22 | XMS_ITS | Encounter Summary ---
:1945 Author Organization [facility] Address [address] [place] [id number] Care Team Providers Name Role Phone Unavailable Primary Care Provider Unavailable Reason for Referral Outpatient (Routine) - Closed Specialty Diagnoses / Procedures Referred By Contact Refer red To Contact Diagnoses Pain Chest Hyperlipidemia Mixed Angina Stable (HCC) Renee Drummond M.D. [facility] Procedures DX Chest AP or PA and Lateral 2 Views [address] [place] [phone] Referral ID Status Reason Start Date Expiration Date Visits Requ ested Visits Authorized [id number] Closed 09/10/2021 09/10/2022 1 1 Reason for Visit Outpatient (Routine) - Closed Specialty Diagnoses / Procedures Referred By Contact Refer red To Contact Diagnoses Pain Chest Hyperlipidemia Mixed Angina Stable (HCC) Renee Drummond M.D. [facility] Procedures DX Chest AP or PA and Lateral 2 Views [address] [place] [phone] Referral ID Status Reason Start Date Expiration Date Visits Requ ested Visits Authorized [id number] Closed 09/10/2021 09/10/2022 1 1 Encounter Details Date Type Department Care Team Description 11/04/2021 Hospital Encounter Department of Renee Drummond [facility] st; Radiology, Krishan Guzmán M.D. Hyperlipidemia Mixed; Building, in [address] [facility] Angina Stable (HCC) [facility] [address] [place], [place] (Work) [address] [phone] Social History Tobacco Use Types Packs/Day Years [...] or relatives? How often do you attend voodoo or congregational 1 to 4 times per year 11/08/2021 services? Do you belong to any clubs or organizations Yes 11/08/2021 such as voodoo groups, unions, fraternal or athletic groups, or [...] place to sleep or slept in a mcc (including now)? Sex Assigned at Date Recorded [...] 50 mcg (2,000 Unit) mouth daily. tablet ezetimibe (ZETIA) 10 mg Take 1 tablet (10 mg 90 tablet 3 03/07/2022 tablet total) by mouth daily. losartan (COZAAR) 100 mg Take 1 tablet [...] CHEST AP OR PA RAD - Routine 11/04/2021 8:45 Pain Chest Results for this AND LATERAL 2 (most inpatients AM CDT Hyperlipidemia procedur e are in VIEWS and all Mixed the results outpatients) Angina Stable section. (HCC) documented in this encounter Results DX Chest AP or PA and Lateral 2 Views (11/04/2021 8:45 AM CDT) Anatomical Region Laterality Modality Chest, Thoracic RST LOS, Thoracic ARZ LOS, Thoracic N/A Digital Radiography FLA LOS Specimen (Source) Anatomical Collection Method Collection Time Re ceived Time Location / / Volume Laterality 11/04/2021 9:04 AM CDT Impressions 11/04/2021 9:05 AM CDT Slight fibrosis or linear atelectasis left base. Aortic calcification. Coronary stent. Thoracolumbar curve with degenerative ch anges. No significant change since 09/05/2016. Narrative 11/04/2021 9:05 AM CDT EXAM: ??DX CHEST AP OR PA AND LATERAL 2 VIEWS Procedure Note Eleuterio Gillespie M.D. - 11/04/2021Format ting of this note might be different from the original. EXAM: DX CHEST AP OR PA AND LATERAL 2 EWS IMPRESSION: Slight fibrosis or linear atelectasis le ft base. Aortic calcification. Coronary stent. Thoracolumbar curve with degenerative ch anges. No significant change since 09/05/2016. Renee LOW DIAGNOSTIC IMAGING PROCE JULIO CÉSAR documented in this encounter Visit Diagnoses Diagnosis Pain Chest Hyperlipidemia Mixed Angina Stable (HCC) documented in this encounter Additional Health Concerns Infection Onset Date Last Indicated Resolved Time COVID19 Pending 11/04/2021 11/04/2021 11/04/2021 1:42 PM CDT documented as of this encounter
--- OUTSIDE RECORDS SUMMARY | 2022-05-16 12:22 | XMS_ITS | Encounter Summary ---
:1945 Author Organization [facility] Address [address] [place] [address] Care Team Providers Name Role Phone Unavailable Primary Care Provider Unavailable Reason for Visit Outpatient (Routine) - Authorized Specialty Diagnoses / Procedures Referred By Contact Refer red To Contact Diagnoses Pain Chest Hyperlipidemia Mixed Angina Stable (HCC) Renee Drummond M.D. [facility] Procedures NM Cardiac Perfusion Rest and Stress SPECT [address] [place] [phone] Referral ID Status Reason Start Date Expiration Date Visits V isits Requested Authorized [id number] Authorized 09/10/2021 09/10/2022 6 6 Encounter Details Date Type Department Care Team Description 11/05/2021 Hospital Encounter Department of Renee Drummond Cardiovascular Diseases in [place] Guzmán [place], [place] [address] [facility] [address] [place] [id number] [phone] Social History Tobacco Use Types Packs/Day Years [...] or relatives? How often do you attend episcopalian or anabaptism 1 to 4 times per year 11/08/2021 services? Do you belong to any clubs or organizations Yes 11/08/2021 such as episcopalian groups, unions, fraternal or athletic groups, or [...] MAR Action Action Date Dose Rate Site nitroglycerin SL tablet 0.4 mg Given 11/05/2021 8:32 AM CDT 0.4 mg (NITROSTAT) 0.4 mg, sublingual, As needed, other, See protocol, Starting on Thu11/05/21 at 0824, . Dissolve under the tongue. Do NOT crush, chew, split or swallow tablet. documented in this encounter
--- OUTSIDE RECORDS SUMMARY | 2022-05-16 12:22 | XMS_ITS | Encounter Summary ---
:1945 Author Organization [facility] Address [address] [place] [address] Care Team Providers Name Role Phone Unavailable Primary Care Provider Unavailable Reason for Referral Outpatient (Routine) - Closed Specialty Diagnoses / Procedures Referred By Contact Refer red To Contact Diagnoses Pain Chest Hyperlipidemia Mixed Angina Stable (HCC) Renee Drummond M.D. [facility] Procedures Echo Transthoracic (TTE) [address] [place] [phone] Referral ID Status Reason Start Date Expiration Date Visits Requ ested Visits Authorized [id number] Closed 09/10/2021 09/10/2022 1 1 Reason for Visit Outpatient (Routine) - Closed Specialty Diagnoses / Procedures Referred By Contact Refer red To Contact Diagnoses Pain Chest Hyperlipidemia Mixed Angina Stable (HCC) Renee Drummond M.D. [facility] Procedures Echo Transthoracic (TTE) [address] [place] [phone] Referral ID Status Reason Start Date Expiration Date Visits Requ ested Visits Authorized [id number] Closed 09/10/2021 09/10/2022 1 1 Encounter Details Date Type Department Care Team Description 11/04/2021 Hospital Encounter Department of Renee Drummond [facility]; Cardiovascular [place] Guzmán Hyperlipidemia Mixed; Diseases in [place], [address] Angin a Stable (HCC) [facility] [address] [facility] [phone] Social History Tobacco Use Types Packs/Day Years [...] How often do you attend shinto or adventist 1 to 4 times per year 11/08/2021 [...] place to sleep or slept in a usp (including now)? Sex Assigned at Date Recorded [...] Name Priority Date/Time Associated Diagnosis Comme nts (TTE) 2D ECHO Routine 11/04/2021 3:27 PM Pain Chest Results for this DOPPLER COLOR CDT Hyperlipidemia M ixed procedure are in Angina Stable (HCC) the resu lts section. documented in this encounter Results (TTE) 2D ECHO DOPPLER COLOR (11/04/2021 3:27 PM CDT) [facility] gist Method Time Signature Ejection Fraction 65 MC CV EIMS Mid-Ascending Aorta 40 MC CV EIMS LV Mass Index 93 MC CV EIMS LV End-Diastolic 51 MC CV EIMS Diameter LV End-Systolic 34 MC CV EIMS Diameter LV End-Diastolic 143 MC CV EIMS Volume LV End-Systolic 50 MC CV EIMS Volume MV E Velocity 0.50 MC CV EIMS MV A Velocity 0.70 MC CV EIMS MV E/A 0.71 MC CV EIMS MV e' Velocity 0.07 MC CV EIMS Medial MV e' Velocity 0.08 MC CV EIMS Lateral MV E/e' Medial 7.10 MC CV EIMS MV E/e' Lateral 6.30 MC CV EIMS Left ventricular 54 MC CV EIMS stroke volume index Cardiac Output 5.74 MC CV EIMS Cardiac Index 2.67 MC CV EIMS LV Interventricular 12 MC CV EIMS Septal Wall Thickness LV Posterior Wall 9 MC CV EIMS Thickness LV Relative Wall 35 MC CV EIMS Thickness Tricuspid Annular S? 0.12 MC CV EIMS TR Vmax 2.87 MC CV EIMS RA Pressure 5 MC CV EIMS RV Systolic Pressure 38 MC CV EIM S AV mean gradient 5 MC CV EIMS Aortic valve area 3.28 MC CV EIMS Aortic Valve 0.79 MC CV EIMS Dimensionless Index LA Volume Index 47 MC CV EIMS Aortic Valve 1.60 MC CV EIMS Systolic Peak Velocity Anatomical Region Laterality Modality Echocardiography Specimen (Source) Anatomical Collection Method Collection Time Re ceived Time Location / / Volume Laterality 11/04/2021 2:31 PM CDT Impressions 11/04/2021 8:28 PM CDT Status post coronary artery stent implantation (LAD). LEFT VENTRICLE:Normal left ventricular c hamber size. Normal left ventricular geometry. Calculated 2-D biplane volumetric left ventricular ejection fraction 65%. No regional wall motion abnormalities. Grade 1/3 left ventricular diastolic dysfunction, consistent with low to normal left ventr icular filling pressure at rest. RIGHT VENTRICLE:Normal right ventricular chamber size. Normal right ventricular systolic function. Estimated right ventricular systolic pressure 38 mmHg (right atrial pressure of 5 mmHg). ATRIA:Moderately enlarged left atrial si ze. Left atrial volume index 47 ml/m2. Normal right atrial size by visual estimate. CARDIAC VALVES:Trileaflet aortic valve. Sclerotic aortic valve. Aortic valve systolic mean Doppler gradient 5 mmHg. Trivial aortic valve regurgitation. Thickened mitral valve. Mild mitral valve regurgitation. Normal pulmonary valve. Normal pulmonary valve systolic velocities. Trivial pulmo nary valve regurgitation. Normal tricuspid valve. Mild tricuspid valve regurgitation. OTHER ECHO FINDINGS:Normal inferior vena cava size with normal inspiratory collapse (>50%). Normal mid ascending aorta diameter of 40 mm. No abdominal aortic aneurysm. Normal abdominal aorta Doppler flow pattern. No atrial level shunt by color flow imaging. No intracardiac mass or thrombu s, but the left atrial appendage cannot be visualized adequately with transthoracic echo to exclude thrombus in this location. Prominent anterior epicardial fat layer. No ??pericardial effusion. For the complete report, see the Order-L evel Documents. Narrative 11/04/2021 8:28 PM CDT For the complete report, see the Order-Level Documents. Final Impressions 1. Normal left ventricular chamber size. 2. Calculated 2-D biplane volumetric lef t ventricular ejection fraction 65%. 3. No regional wall motion abnormalities . 4. Normal right ventricular chamber size . 5. Normal right ventricular systolic fun ction. 6. Estimated right ventricular systolic pressure 38 mmHg (right atrial pressure of 5 mmHg). 7. Aortic valve systolic mean Doppler gr adient 5 mmHg. 8. Trivial aortic valve regurgitation. 9. Mild mitral valve regurgitation. 10. Mild tricuspid valve regurgitation. 11. Compared to the report of 09/05/2016 no significant change has occurred. Procedure Note Irvin Dunlap M.D., Ph.D. - 11/04/2021 For the complete report, see the Order-L Digital [place] Documents. Final Impressions 1. Normal left ventricular chamber size. 2. Calculated 2-D biplane volumetric lef t ventricular ejection fraction 65%. 3. No regional wall motion abnormalities . 4. Normal right ventricular chamber size . 5. Normal right ventricular systolic fun ction. 6. Estimated right ventricular systolic pressure 38 mmHg (right atrial pressure of 5 mmHg). 7. Aortic valve systolic mean Doppler gr adient 5 mmHg. 8. Trivial aortic valve regurgitation. 9. Mild mitral valve regurgitation. 10. Mild tricuspid valve regurgitation. 11. Compared to the report of 09/05/2016 no significant change has occurred. Findings Status post coronary artery stent implan tation (LAD). LEFT VENTRICLE:Normal left ventricular c hamber size. Normal left ventricular geometry. Calculated 2-D [...] of 5 mmHg). ATRIA:Moderately enlarged left atrial si ze. Left atrial volume index 47 ml/m2. Normal right atrial size by visual estimate. CARDIAC VALVES:Trileaflet aortic valve. Sclerotic aortic valve. Aortic valve systolic mean Doppler gradient 5 mmHg. Trivial aortic valve regurgitation. Thickened mitral valve. Mild mitral valve regurgitation. Normal pulmonary valve. Normal pulmonary valve systolic velocities. Trivial pulmonary valve regurgitation. Normal tricuspid valve. Mild tricuspid valve regurgitation. OTHER ECHO FINDINGS:Normal inferior vena cava size with normal inspiratory collapse (>50%). Normal mid ascending aorta diameter of 40 mm. No abdominal aortic aneurysm. Normal abdominal aorta Doppler flow pattern. No atrial level shunt by color flow imaging . No intracardiac mass or thrombus, but the left atrial appendage cannot be visualized adequately with transthoracic echo to exclude thrombus in this location. Prominent anterior epicardial fat layer. No perica rdial effusion. For the complete report, see the Order-L evel Documents. Renee Drummond M.D. CV ECHO PROCEDURES documented in this encounter Visit Diagnoses Diagnosis Pain Chest Hyperlipidemia Mixed Angina Stable (HCC) documented in this encounter
--- OUTSIDE RECORDS SUMMARY | 2022-05-16 12:23 | XMS_ITS | Encounter Summary ---
:1945 Author Organization [facility] Address [address] [place] [address] Care Team Providers Name Role Phone Unavailable Primary Care Provider Unavailable Reason for Visit Appointment Request (Routine) - Closed Specialty Diagnoses / Procedures Referred By Contact Refer red To Contact Dermatology Diagnoses Screening Examination Skin Cancer Referral ID Status Reason Start Date Expiration Date Visits Requ ested Visits Authorized [id number] Closed 06/18/2020 06/18/2021 1 1 Encounter Details Date Type Department Care Team Description 07/18/2020 Comprehensive Visit Department of Sury Diop (Primary Dx); Dermatology in , 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 Keratosis Seborrheic; [place], [place] 200 [facility] Nevi Multiple [address] [place], [place] [phone] Social History Tobacco Use Types Packs/Day Years [...] or relatives? How often do you attend advent or voodoo 1 to 4 times per year 11/08/2021 services? Do you belong to any clubs or organizations Yes 11/08/2021 such as advent groups, unions, fraternal or athletic groups, or [...] documented as of this encounter Consult Notes Sury Diop APRN, C.N.P., M.S.N. - 07/18/2020 10:20 AM CST CHIEF COMPLAINT / REASON FOR VISIT Supervised by: Dr. Xander Estrada ([phone]) Supervising performance improvement consultant, Dr. Xander Estrada, was immediately available but consultation was not required. Skin cancer screening examination HISTORY OF PRESENT ILLNESS Mr. Angel Doran is a pleasant 74 y.o. male who presents today for a skin cancer screening examination. The patient was last evaluated in the Department of Dermatology on 02/22/2020, by Dr. Conde. Mr. Angel Doran has a history of nonmelanoma skin cancer. 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 The patient reports concerns of dry, scaly, lesions involving the scalp and back. Mr. Angel Doran tries to be diligent with photoprotective measures. No Known Allergies REVIEW OF SYSTEMS The patient feels well. Denies any weight loss, fevers or recent changes in his state of health. PAST MEDICAL HISTORY Nonmelanoma skin cancer PHYSICAL EXAM General: Awake, alert, in no acute distress, and with appropriate affect. Eyes: No scleral injection or icterus. No eyelid abnormalities. Cardio: No lower extremity edema. Skin: I have examined the scalp, face, neck, chest, abdomen, back, bilateral upper extremities, bilateral lower extremities, groin and buttocks per patient request. Saleh skin type 3-4, there is evidence of moderate dermatoheliosis in sun-exposed areas. Scattered across the trunk, bilateral upper and lower extremities are brown, well-defined, waxy, stuck on appearing , papule and plaques consistent with seborrheic keratosis. Scattered throughout the trunk, bilateral upper and lower extremitiesare red, dome-shaped, macules and papules, consistent with glover angiomas. There are brown , benignappearing nevi on the trunk, bilateral upper and lower extremities. There are 2 erythematous papuleswith overlying scale consistent with actinic keratoses on the scalp and abdomen. The dry, raised, itchy lesions involving the back are seborrheic keratosis. ASSESSMENT / PLAN #1 Skin cancer screening examination #2 Personal history of nonmelanoma skin cancer #3 Dermatoheliosis No worrisome findings for skin cancer today. Sun protection and sun avoidance were reviewed with thepatient. Educational materials were provided regarding skin self-examination, the warning signs and symptoms of skin cancer, and the proper use of sunscreens. I would recommend a full skin cancer screening examination with an appropriately trained clinician every year or sooner for new skin concerns #4 Banal-appearing nevi None of the patient's nevi reach the clinical threshold for biopsy. I recommend continued sun protection, self-skin examinations, and observation. Should any of the patient's nevi change in size, color, texture, or shape or develop symptoms such as itching or bleeding, I recommend an immediate return visit for reassessment. #5 Actinic keratoses x 2, 1 involving the scalp and 1 on the left abdomen Given the precancerous nature of this lesion(s), treatment is medically indicated. After discussion of the risks, benefits and alternatives to treatment with cryotherapy, informed consent was obtained.We treated a total of 2 lesion(s) with two 20-second freeze-thaw cycles of liquid nitrogen cryotherapy. The patient tolerated the procedure well. Aftercare instructions were provided in written and verbal form to the patient. Should any of these lesions recur, the patient should return for biopsy or further evaluation. Discussed the risks, benefits, alternatives, and the necessity of other members ofthe healthcare team participating in the procedure. All questions answered and consent given. #6 Seborrheic keratoses #7 Glover angiomas The benign nature of the skin lesion(s) was discussed with the patient. No treatment is required. I recommend continued observation. Should symptoms or changes develop related to this condition, I would recommend a return visit for reassessment. All questions answered. PATIENT EDUCATION Ready to learn. No apparent learning barriers were identified. Learning preferences include listening. Explained diagnosis and treatment plan; patient/guardian of patient expressed understanding of thecontent. 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
--- OUTSIDE RECORDS SUMMARY | 2022-05-16 12:23 | XMS_ITS | Encounter Summary ---
:1945 Author Organization [facility] Address [address] [place] [address] Care Team Providers Name Role Phone Unavailable Primary Care Provider Unavailable Reason for Referral Outpatient (Routine) - Authorized Specialty Diagnoses / Procedures Referred By Contact Refer red To Contact Diagnoses Pain Chest Hyperlipidemia Mixed Angina Stable (HCC) Renee Drummond M.D. [facility] Procedures NM Cardiac Perfusion Rest and Stress SPECT [address] [place] [phone] Referral ID Status Reason Start Date Expiration Date Visits V isits Requested Authorized [id number] Authorized 09/10/2021 09/10/2022 6 6 Outpatient (Routine) - Closed Specialty Diagnoses / Procedures Referred By Contact Refer red To Contact Diagnoses Pain Chest Hyperlipidemia Mixed Angina Stable (HCC) Renee Drummond M.D. [facility] Procedures Echo Transthoracic (TTE) [address] [place] [phone] Referral ID Status Reason Start Date Expiration Date Visits Requ ested Visits Authorized [id number] Closed 09/10/2021 09/10/2022 1 1 Outpatient (Routine) - Closed Specialty Diagnoses / Procedures Referred By Contact Refer red To Contact Diagnoses Pain Chest Hyperlipidemia Mixed Angina Stable (HCC) Renee Drummond M.D. [facility] Procedures ECG 12 Lead [address] [place] [phone] Referral ID Status Reason Start Date Expiration Date Visits Requ ested Visits Authorized [id number] Closed 09/10/2021 09/10/2022 1 1 Outpatient (Routine) - Closed Specialty Diagnoses / Procedures Referred By Contact Refer red To Contact Diagnoses Pain Chest Hyperlipidemia Mixed Angina Stable (HCC) Renee Drummond M.D. 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 How often do you attend baptism or mormon 1 to 4 times per year 11/08/2021 services? Do you belong to any clubs or organizations Yes 11/08/2021 such as baptism groups, unions, fraternal or athletic groups, or [...] slept in a senior living (including now)? Sex Assigned at Date Recorded Male 11/08/2021 12:12 PM CDT documented as of this encounter Plan of Treatment Not on filedocumented as of this encounter Results NM Cardiac Perfusion Rest [...] Organization Address City/State/ZIP Code Phon e Number MC CV MERGE MC CV MERGE NA (TTE) 2D ECHO DOPPLER COLOR (11/04/2021 3:27 PM CDT) [facility] gist Method Time Signature Ejection Fraction [...] For the complete report, see the Order-L [employer] Documents. Final Impressions 1. Normal left ventricular [...] Documents. Renee Drummond M.D. CV ECHO PROCEDURES DX Chest AP or PA and Lateral [...] anges. No significant change since 09/05/2016. Renee Drummond M.D. IMG DIAGNOSTIC IMAGING PROCE DURES ECG 12 Lead (11/04/2021 8:30 AM CDT) P athologist Signature Ventricular Rate 54 BPM MUSE ECG/Min MI Interval 176 ms MUSE QRSD Interval 96 ms MUSE QT Interval 454 ms MUSE QTC Interval 430 ms MUSE P [place] 44 degrees MUSE R [place] 6 degrees MUSE T Wave [place] 33 degrees MUSE Specimen Anatomical Collection Method Collection Time Receive d Time (Source) Location / / Volume Laterality 11/04/2021 8:30 AM 8:38 CDT AM CDT Impressions MUSE - 11/04/2021 8:38 AM CDT Sinus bradycardia Otherwise normal ECG When compared with ECG of 05-SEP-2016 08 :42, No significant change was found Reviewed by RUSH Gibson Narrative This result has an attachment that is no t available. Procedure Note Alfonso Zapata M.D. - 11/04/2021Forma tting of this note might be different from the original. IMPRESSION: Sinus bradycardia Otherwise normal ECG When compared with ECG of 05-SEP-2016 08 :42, No significant change was found Reviewed by RUSH Gibson Renee Drummond M.D. ECG ORDERABLES Performing Organization Address City/State/ZIP Code Phon e Number MUSE MUSE NA Lipid Panel (11/04/2021 7:54 AM CDT) P athologist Signature Cholesterol, 142 mg/dL 11/04/2021 DTL [...] Organization Address City/State/ZIP Code Phon e Number [facility] - 200 [place], [place] [address] [facility] [place] [place] [address] [facility] [address] [facility] (ABNORMAL) Comprehensive Metabolic Panel (11/04/2021 7:54 AM [...] 11/04/2021 DTL Black/ mL/min/BSA 9:08 AM CDT [place] Comment: ----ADDITIONAL INFORMATION---- Estimated GFR calculated using [...] Organization Address City/State/ZIP Code Phon e Number [facility] - [address] [place], [place] [address] [facility] [place] [address] [facility] [address] documented in this encounter Visit Diagnoses Diagnosis Pain Chest - Primary Hyperlipidemia Mixed Angina Stable (HCC) Pain Chest Hyperlipidemia Mixed Angina Stable (HCC) Pain Chest Hyperlipidemia Mixed Angina Stable (HCC) Pain Chest Hyperlipidemia Mixed Angina Stable (HCC) documented in this encounter
--- OUTSIDE RECORDS SUMMARY | 2022-05-16 12:23 | XMS_ITS | Encounter Summary ---
:1945 Author Organization [facility] Address [address] [place] [address] Care Team Providers Name Role Phone Unavailable Primary Care Provider Unavailable Encounter Details Date Type Department Care Team Description 02/28/2016 Hospital Encounter HX [facility] Renee Miller M.D. [address] [place] [address] (Wo rk) Social History Tobacco Use Types Packs/Day Years Used Date Smoking Tobacco: Never Assessed Alcohol Habits Answer Date Recorded How often [...] How often do you attend yazidism or buddhism 1 to 4 times per [...] place to sleep or slept in a alf (including now)? Sex Assigned at Date Recorded Male 11/08/2021 12:12 PM CDT documented as of this encounter Medications at Time of Discharge Medication Sig Dispensed Refills Start Date End Date aspirin [address] tablet Take 1 tablet by 0 07/2412/02/2021 mouth daily. cholecalciferol (VITAMIN Take 1 tablet by 0 06/0903/07/2022 D3) 50 mcg (2,000 Unit) mouth daily. tablet doxazosin (CARDURA) 4 mg Take 1 tablet by 0 02/2111/04/2021 tablet mouth every evening. losartan (COZAAR) 100 mg Take 1 tablet by 0 04/1712/08/2021 tablet mouth daily. traMADol (ULTRAM) 50 mg Take 1 tablet by 0 201512/08/2021 tablet mouth every 6 (six) hours as needed (Back pain). Rarely uses tretinoin (RETIN-A) 0.05 Apply 1 application 0 11/04/2021 % cream topically at bedtime. 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 However, the narrative phrase printed from the coding software may appear abbreviated, or result in slightly different terminology. Coded By: REJI ALONSO Date Saved: 03/04/2016 03:52 pm Source: [employer] Document Id: [id number] Miscellaneous - Ky Lacey R.N. - 01/31/2016 10:38 AM CDT Patient Education Patient Education Entered On: 01/31/2016 10:39 CDT Performed On: 01/31/2016 10:38 CDT by KY LACEY RN Education General Patient Education [employer] Topics : Other: Verbal and written education provided to patient regarding upcoming cardiology appt and treadmill stress test. Encouraged to call if questions arise. KY LACEY RN - 01/31/2016 10:38 CDT Source: [employer] Document Id: [id number] CDT!5 documented in this encounter Plan of Treatment Not on filedocumented as of this encounter Visit Diagnoses Not on filedocumented in this encounter
--- OUTSIDE RECORDS SUMMARY | 2022-05-16 12:23 | XMS_ITS | Encounter Summary ---
:1945 Author Organization [facility] Address [address] [place] [address] Care Team Providers Name Role Phone Unavailable Primary Care Provider Unavailable Encounter Details Date Type Department Care Team Description 06/10/2011 Hospital Encounter HX [facility] EXERCISE LAB Ra mendez Buckner M.D. [address] [place] [phone] (Wo rk) Social History Tobacco Use Types [...] How often do you attend pentecostal or hindu 1 to 4 times per [...] or slept in a intermediate (including now)? Sex Assigned at Date Recorded Male 11/08/2021 12:12 PM CDT documented as of this encounter Medications at Time of Discharge Medication Sig Dispensed Refills Start Date End Date aspirin [address] tablet Take 1 tablet by 0 07/2412/02/2021 mouth daily. cholecalciferol (VITAMIN Take 1 tablet by 0 06/0903/07/2022 D3) 50 mcg (2,000 Unit) mouth daily. 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 CV STRESS PROCEDURES Performing Organization Address City/State/ZIP Code Phon e Number HX [facility] CONVERSION documented in this encounter Visit Diagnoses Not on filedocumented in this encounter
--- OUTSIDE RECORDS SUMMARY | 2022-05-16 12:23 | XMS_ITS | Encounter Summary ---
:1945 Author Organization [facility] Address [address] [place] [address] Care Team Providers Name Role Phone Unavailable Primary Care Provider Unavailable Encounter Details Date Type Department Care Team Description 07/18/2007 Hospital Encounter HX NO MAPPING Social History Tobacco Use Types Packs/Day Years [...] or relatives? How often do you attend yarsani or yazidi 1 to 4 times per year 11/08/2021 services? Do you belong to any clubs or organizations Yes 11/08/2021 such as yarsani groups, unions, fraternal or athletic groups, or [...] or slept in a penitentiary (including now)? Sex Assigned at Date Recorded Male 11/08/2021 12:12 PM CDT documented as of this encounter Plan of Treatment Not on filedocumented as of this encounter Visit Diagnoses Not on filedocumented in this encounter
--- OUTSIDE RECORDS SUMMARY | 2022-05-16 12:23 | XMS_ITS | Encounter Summary ---
:1945 Author Organization [facility] Address [address] [place] [address] Care Team Providers Name Role Phone Unavailable Primary Care Provider Unavailable Encounter Details Date Type Department Care Team Description 07/23/2010 Hospital Encounter HX [facility] EXERCISE Provider, Hist orical LAB Social History Tobacco Use Types Packs/Day Years [...] often do you attend roman catholic or rastafari 1 to 4 times per year 11/08/2021 [...] or slept in a correction (including now)? Sex Assigned at Date Recorded Male 11/08/2021 12:12 PM CDT documented as of this encounter Plan of Treatment Not on filedocumented as of this encounter Procedures Procedure Name Priority Date/Time Associated Diagnosis Comme nts EXERCISE ECG Routine 07/23/2010 10:03 AM PATTERN CARRIER ECG Routine 07/23/2010 9:40 AM Results f or this PATTERN CARRIER procedure are i n the results section . documented in this encounter Results Exercise ECG (07/23/2010 10:03 AM PATTERN CARRIER) Specimen (Source) Anatomical Collection Method Collection Time Re ceived Time Location / / Volume Laterality 07/23/2010 10:03 AM PATTERN CARRIER Pepe Joel M.D. CV STRESS PROCEDURES Performing Organization Address City/State/ZIP Code Phon e Number HX [facility] CONVERSION ECG 12 Lead (07/23/2010 9:40 AM PATTERN CARRIER) Specimen (Source) Anatomical Collection Method Collection Time Re ceived Time Location / / Volume Laterality 07/23/2010 9:40 AM [facility] - 07/23/2010 10:05 AM PATTERN CARRIER 23Jul2010 09:40 VENTRICULAR RATE 58 Sinus bradycardia Otherwise normal ECG When compared with ECG of 16-MAR-2007 07 :33, No significant change was found [id number]^ADOLFO ??^RAI Procedure Note Rai Carvajal M.D., Ph.D. - 8 23Jul2010 09:40 VENTRICULAR RATE 58 Sinus bradycardia Otherwise normal ECG When compared with ECG of 16-MAR-2007 07 :33, No significant change was found [id number]^ADOLFO [place]^RAI Renee Drummond M.D. ECG ORDERABLES Performing Organization Address City/State/ZIP Code Phon e Number HX [facility] [address] [place] [address], [place] documented in this encounter Visit Diagnoses Not on filedocumented in this encounter
--- OUTSIDE RECORDS SUMMARY | 2022-05-16 12:23 | XMS_ITS | Encounter Summary ---
:1945 Author Organization [facility] Address [address] [place] [address] Care Team Providers Name Role Phone Unavailable Primary Care Provider Unavailable Reason for Visit Appointment Request (Routine) - Closed Specialty Diagnoses / Procedures Referred By Contact Refer red To Contact Dermatology Referral ID Status Reason Start Date Expiration Date Visits Requ ested Visits Authorized [id number] Closed 11/26/2017 11/26/2018 1 Encounter Details Date Type Department Care Team Description 01/06/2018 Comprehensive Visit Department of Cheyenne Leal atosis Seborrheic (Primary Dx); Dermatology in [facility] Lesion Skin Arm; [place] [address] Kenneth Monsalve Keratosis Actinic; [place], [place] Nevi Multiple [address] [address] [place], [place] [phone] (Work) [phone] Social History Tobacco Use Types Packs/Day Years [...] How often do you attend latter-day or mu-ism 1 to 4 times per [...] or slept in a prison (including now)? Sex Assigned at Date Recorded Male 11/08/2021 12:12 PM CDT documented as of this encounter Consult Notes Cheyenne Leal M.D. - 01/06/2018 10:30 AM CDT CORRESPONDENCE TO: Cheyenne Nuñez M.D. Supervised by: Dr. Xander Estrada REFERRED BY: No referring provider defined for this encounter. CHIEF COMPLAINT Skin lesions on skin HISTORY OF PRESENT ILLNESS Mr. Doran is a very pleasant 72 y.o. male with no personal or family history of melanoma or nonmelanoma skin cancer. He has a history of numerous actinic keratoses treated with cryotherapy in the past. He presents today for full skin exam. He was last seen for a full skin check in January, at which time he had numerous actinic keratoses treated. There were no concerns for cutaneous malignancy at that time. He has developed new scaly lesions on his scalp. He has not used anything to treat these. He is ableto scrape some scale off when he scratches. They have not bled. He has a scaly pink lesion on the left forearm which has been there for several months. He has picked at it on occasion causing it to bleed. It is occasionally mildly painful. It has never fully healed. He does spend a significant time out of door, and notes he could be better about sun protective measures including use of a hat. s PAST MEDICAL/SURGICAL HISTORY Reviewed. SOCIAL HISTORY He is daughters an sound recordist and his son his orthopedic surgeon in [facility]. 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 PHYSICAL EXAM General: Well appearing male in no acute distress. Alert and Oriented. Eyes: No eyelid abnormalities. No scleral injection. Skin: Focused skin examination of the head, neck, back, upper and lower extremities per patient's request. Saleh type II skin. Byrd diffusely in sun-exposed areas, with moderate dermatoheliosis and lentigines on the face and upper shoulders. Three gritty erythematous macules involving the posterior vertex scalp. Single gritty erythematous macule involving the right christian. Involving the left posterior forearm is a hyperkeratotic pink papule with central crusted ulceration. Scattered brown thin plaque with homogeneous pigment network throughout consistent with macular seborrheic keratosis. Scattered on the back and extremities, are few light to dark brown macules and papules varying in size from 0.2-cm to 0.5-cm with regular borders, symmetry, and reassuring pigment patterns under dermoscopy. ASSESSMENT AND PLAN 1. Seborrheic keratosis The benign nature of the skin lesion(s) was discussed with the patient. No treatment is required. I recommend continued observation. Should symptoms or changes develop related to this condition, I would recommend a return visit for reassessment. 2. Actinic keratoses x4, one on the right christian, three on the vertex and right parietal scalp CONSENT Discussed the risks, benefits, alternatives, and the necessity of other members of the healthcare team participating in the procedure. All questions answered and consent given. PROCEDURE INFORMATION Given the precancerous nature of this lesion(s), treatment is medically indicated. After discussion of the risks, benefits and alternatives to treatment with cryotherapy, informed consent was obtained.We treated a total of four lesion(s) with two 20-second freeze-thaw cycles of liquid nitrogen cryotherapy. The patient tolerated the procedure well. Aftercare instructions were provided in written and verbal form to the patient. Should any of these lesions recur, the patient should return for biopsy or further evaluation. I recommend increased sun protection and use of a wide brimmed hat and sunscreen to the vertex scalp daily. 3. Lesion skin, left posterior forearm, query SCC s/p ED&C Differential includes prurigo nodule given that he has picked at the area versus traumatized seborrheic keratosis. Recommended biopsy today given suspicion for nonmelanoma skin cancer. Shave biopsy performed lesion was further treated with electrodesiccation and curettage The anesthesia used was 1% lidocaine with epinephrine 1:200,000. The skin was prepped in a sterile fashion with alcohol. The lesion was curetted with a three- mm curette in three different directions and electrodessication of the base until clinically tumor-free margins were obtained. Postoperative size: 0.5 cm. Estimated blood loss: Minimal. Complications: None. Wound care: Routine. Specimen sent to Dermatopathology. Biopsy report is pending. 4. Multiple nevi The ABCDE criteria for melanoma was reviewed with the patient. None of the patient's nevi reach the clinical threshold for biopsy. I recommend continued sun protection, self-skin examinations, and observation. Should any of the patient's nevi change in size, color, texture, or shape or develop symptoms such as itching or bleeding, I recommend an immediate return visit for reassessment. documented in this encounter Plan of Treatment Not on filedocumented as of this encounter Procedures Procedure Name Priority Date/Time Associated Diagnosis Comme nts DERMATOPATHOLOGY Routine 01/06/2018 10:38 AM Resu lts for this CDT procedure are i n the results section. documented in this encounter Results Dermatopathology (01/06/2018 10:38 AM CDT) Component Value Ref Test Analysis Performed At [facility] Range Method Time Signature Gross Received in formalin labeled with the patient's name and 01/11/2018 [facility] Description and labeled as left 4:57 PM LABORATORIES - posterior forearm is a 1.0 x 0.8 x 0.1 cm byrd-white skin CDT [facility] shave biopsy. ??There is a pale byrd brown hair-bearing TAMPA pigmented lesion diffusely involved on the skin surface. Specimen is longitudinally bisected and submitted entirely in cassette A1. Grossed by JENNIE. Participated in Nate Blanc 01/11/2018 [facility] C jose D.O.-Pathology 4:57 PM LABORATORIES - Interpretation Resident CDT [facility] Report Dana Madsen. 01/11/2018 [facility] electronically Haja, M.D. 4:57 PM LABORATORIE S - signed by [facility] 01/11/2018 [facility] 4:57 PM LABORATORIES - [facility] Disclaimer This test was developed using an analyte specific reag ent. 01/11/2018 [facility] Its performance characteristics were determined by [place] 4:57 PM LABORATORIES - [facility] in a manner consistent with CLIA requirements. This [facility] test has not been cleared or approved by the U.S. Food and CAMPUS Drug Administration. Interpretation FINAL DIAGNOSIS 01/11/2018 [facility] PATRICIA A. 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 ??HSV and VZV stains are negative. Specimen (Source) Anatomical Collection Method Collection Time Re ceived Time Location / / Volume Laterality Skin (Left 01/06/2018 10:38 posterior AM [facility] forearm) Narrative This result has an attachment that is no t available. Cheyenne Leal M.D. LAB PATH DERM ORDERABLES Performing Organization Address City/State/ZIP Code Phon e Number [facility]ATORIES - [address] [place], [place] [address] [facility] documented in this encounter Visit Diagnoses Diagnosis Keratosis Seborrheic - Primary Lesion Skin Arm Keratosis Actinic Nevi Multiple documented in this encounter
--- OUTSIDE RECORDS SUMMARY | 2022-05-16 12:23 | XMS_ITS | Encounter Summary ---
:[address] [facility] Address [address] [place] [address] Care Team Providers Name Role Phone Unavailable Primary Care Provider Unavailable Encounter Details Date Type Department Care Team Description 10/02/2005 - 10/03/2005 Hospital Encounter HX NO MAPPING Social History [...] How often do you attend faith or druze 1 to 4 times per year 11/08/2021 [...] or slept in a fdc (including now)? Sex Assigned at Date Recorded Male 11/08/2021 12:12 PM CDT documented as of this encounter Plan of Treatment Not on filedocumented as of this encounter Visit Diagnoses Not on filedocumented in this encounter
--- OUTSIDE RECORDS SUMMARY | 2022-05-16 12:23 | XMS_ITS | Encounter Summary ---
:1945 Author Organization [facility] Address [address] [place] [address] Care Team Providers Name Role Phone Unavailable Primary Care Provider Unavailable Reason for Visit Reason Comments COVID Nurse Line Encounter Details Date Type Department Care Team Description 02/14/2020 Clinical Communication Department of Sury Diop Nurse Line Dermatology in [place], [place] C.N.P., D.N.P., [address] [place], [place] [address] [facility] [id number] [place], [place] [phone] Social History Tobacco Use Types Packs/Day Years [...] How often do you attend faith or rastafari 1 to 4 times per [...] this encounter Miscellaneous Notes Telephone Encounter - Jessica Bazan - 02/14/2020 9:34 AM CDT ([facility] and [facility] locations only: If the patient is not having symptoms and is requesting COVID-19 Nasal Swab testing only, use the process listed in the COVID-19 Patient Requesting COVID PCR Test OTG COVID-19 [place] Patient Requesting COVID PCR Test). In the past 30 days have you had a swab for COVID that tested positive? no Route reply to Scheduling Contact Number documented in this encounter Plan of Treatment Not on filedocumented as of this encounter Visit Diagnoses Not on filedocumented in this encounter
--- OUTSIDE RECORDS SUMMARY | 2022-05-16 12:23 | XMS_ITS | Encounter Summary ---
:1945 Author Organization [facility] Address [address] [place] [address] Care Team Providers Name Role Phone Unavailable Primary Care Provider Unavailable Reason for Visit Appointment Request (Routine) - Closed Specialty Diagnoses / Procedures Referred By Contact Refer red To Contact Dermatology Diagnoses Screening Examination Skin Cancer Referral ID Status Reason Start Date Expiration Date Visits Requ ested Visits Authorized [id number] Closed 02/14/2020 02/13/2021 1 1 Encounter Details Date Type Department Care Team Description 02/22/2020 Comprehensive Visit Department of Haroon Conde Cancer Skin Squamous Cell Personal History (Primary Dx); Dermatology in [place], Keratosis Act inic; [place], [place] M.B.A. Keratosis Seborrheic; [address] [facility] [place] [id number] [phone] Social History Tobacco Use Types Packs/Day Years [...] or relatives? How often do you attend judaism or worship 1 to 4 times per year 11/08/2021 services? Do you belong to any clubs or organizations Yes 11/08/2021 such as judaism groups, unions, fraternal or athletic groups, or [...] or slept in a detention (including now)? Sex Assigned at Date Recorded Male 11/08/2021 12:12 PM CDT documented as of this encounter Consult Notes Haroon Conde M.D., M.B.A. - 02/22/2020 11:00 AM CDT Correspondence To: Dr. Conde Supervising automotive consultant, Dr. Estrada, was immediately available, but consultation was not required. SUBJECTIVE Chief Complaint Personal history of nonmelanoma skin cancer History of Present Illness Mr. Doran is a 74 y.o. 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 Patient was last seen by [facility] for excision of the above skin cancer. Today, patient reports a few lesions that he would like to have closely evaluated. He notes scaly bumps in the scalp that tend to scab over. He also reports rough areas on the eyebrows and temples. These areas are typically asymptomatic. Review of Systems Denies other new or changing symptoms Past Medical/Surgical History Reviewed Family History Denies family history of skin cancer OBJECTIVE Physical Exam General: Well appearing male in no acute distress. Alert and Oriented. Eyes: No eyelid abnormalities. No scleral injection. Skin: Skin examination of the head, neck, chest, abdomen, back, upper extremities, digits, nails, buttock, and lower extremities was performed. ?? Saleh type II ?? Erythematous macules with overlying gritty scale on the bilateral temples, right eyebrow, and left nasal ala ?? A few benign-appearing nevi ?? Scattered seborrheic keratoses and glover angiomas Assessment Assessment and Plan #1 Personal history of nonmelanoma skin cancer Mr. Doran is a 74 y.o. 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 No lesions reaching threshold for biopsy on today's exam. ??? Sun protection and sun avoidance were reviewed with the patient. Educational materials were provided regarding skin self-examination, the warning signs and symptoms of skin cancer, and the proper use of sunscreens. ??? I would recommend a full skin cancer screening examination with an appropriately trained clinician every year. #2 Actinic keratoses x4 ?? Treated 4 actinic keratoses on the face as described above ?? Actinic keratosis on the left nasal ala was a bit more hyperkeratotic. I counseled the patient tokeep a close eye on this area, and if he notices recurrence or expanding lesion, he should return for re-evaluation. #3 Seborrheic keratoses #4 [place] angiomas #5 Benign-appearing nevi The benign nature of the skin lesion(s) was discussed with the patient. No treatment is required. I recommend continued observation. Should symptoms or changes develop related to this condition, I would recommend a return visit for reassessment. PATIENT EDUCATION Ready to learn. No apparent learning barriers were identified. Learning preferences include listening. Explained diagnosis and treatment plan; patient/guardian of patient expressed understanding of thecontent. documented in this encounter Plan of Treatment Not on filedocumented as of this encounter Visit Diagnoses Diagnosis Cancer Skin Squamous Cell Personal Histo ry - Primary Keratosis Actinic Keratosis Seborrheic Angioma [place] documented in this encounter
--- OUTSIDE RECORDS SUMMARY | 2022-05-16 12:23 | XMS_ITS | Encounter Summary ---
:1945 Author Organization [facility] Address [address] [place] [address] Care Team Providers Name Role Phone Unavailable Primary Care Provider Unavailable Reason for Visit Reason Comments Squamous Cell Carcinoma Encounter Details Date Type Department Care Team Description 01/14/2018 Documentation Department of Cheyenne Leal Squamous Cell Dermatology in [place], [place] [address] [place] [phone] Social History Tobacco Use Types Packs/Day Years [...] How often do you attend samaritan or baptism 1 to 4 times per [...] slept in a nursing home (including now)? Sex Assigned at Date Recorded Male 11/08/2021 12:12 PM CDT documented as of this encounter Progress Notes Cheyenne eLal M.D. - 01/14/2018 2:37 PM CDT DERMATOLOGY MISCELLANEOUS NOTE CHIEF COMPLAINT: Biopsy results I called the patient to discuss his most recent biopsy results. This showed an invasive, well-differentiated squamous cell carcinoma on the left posterior forearm. While the lesion was treated with electrodesiccation and curettage at the time of biopsy given the location and size of the lesion, as well as the pathological features and involvement of the deep borders, I recommended that he be seen in our procedure Clinic for excision with 6 mm margins The patient does not have a pacemaker or defibrillator. An order was placed and the patient will call our appointment office to schedule the procedureat his convenience. All questions were answered. #1 Biopsy-proven invasive, well-differentiated squamous cell carcinoma, left posterior forearm Recommend re-excision, patient referred to Procedure Clinic. documented in this encounter Plan of Treatment Not on filedocumented as of this encounter Visit Diagnoses Not on filedocumented in this encounter
--- OUTSIDE RECORDS SUMMARY | 2022-05-16 12:23 | XMS_ITS | Encounter Summary ---
:1945 Author Organization [facility] Address [address] [place] [address] Care Team Providers Name Role Phone Unavailable Primary Care Provider Unavailable Encounter Details Date Type Department Care Team Description 02/28/2016 Hospital Encounter HX [facility] CARDIOLOG Renee Blas M.D. [address] [place] [address] (Wo rk) Social History Tobacco Use Types [...] or relatives? How often do you attend tenriism or denominational 1 to 4 times per year 11/08/2021 services? Do you belong to any clubs or organizations Yes 11/08/2021 such as tenriism groups, unions, fraternal or athletic groups, or [...] Sign Reading Time Taken Comments Blood Pressure 120/68 02/28/2016 11:06 AM CDT Pulse - - Temperature - - Respiratory Rate - - Oxygen Saturation - - Inhaled Oxygen Concentration - - Weight 94.9 kg (209 lb 3.5 oz) 02/28/2016 11:06 AM CDT Height 185 cm (6' 0.84) 02/28/2016 11:06 AM CDT Body Mass Index 27.73 02/28/2016 11:06 AM CDT documented in this encounter Medications at Time of [...] as tolerated documented as of this encounter Procedure Kevon Denson M.D. - 02/28/2016 12:00 AM CDT 1ECG Mr. Doran exercised 9 minutes, achieving 10 METs. Heart rate went from 68 to 127. Blood pressure went from 158/78 to 210/100. ECG showed ST depression of 1 to 1.5 mm horizontal in V4, V5, V6 at peak exercise. It took several minutes to recover, and he had T-wave inversions in V5, V6 which eventuallynormalized. He had mild angina at peak exercise. He also had fatigue early onset with the exercise. IMPRESSION 1. Excellent exercise tolerance. 2. Mild ischemia at peak heart rate. 3. Hypertensive response. Renee Blas M.D./gustavo Electronically Signed By: Kevon BLAS MD On: 02/28/2016 02:07 PM Source: [facility] Document Id: [id number] documented in this encounter Consult Notes Kevon Blas M.D. - 02/28/2016 10:40 AM CDT NISA Mr. Doran is a delightful 70-year-old male with known coronary artery disease who comes today for annual followup. He has been having a bit of angina as well as fatigue each morning after having breakfast. He says he feels he needs to go back to bed and take a nap if he gets up and has breakfast andthen starts reading the newspaper. He said this feeling does not bother him at all when he is out playing golf or doing something else. He has occasional angina with activities. It is not limiting to him. He denies dyspnea with activity. He denies orthopnea, paroxysmal nocturnal dyspnea, edema or palpitations. MEDICATIONS Toprol-XL 25 mg a day. Atorvastatin 40 mg a day. Losartan 100 mg a day. Prilosec 40 mg a day. Aspirin 81 mg a day. <__IM_1: PROVIDER REQUESTED BLANK __> There is another one that I will add in. ALLERGIES NKDA. PAST MEDICAL/SURGICAL HISTORY 1. Coronary artery disease with history of percutaneous coronary revascularization to his LAD. 2. Dyslipidemia. 3. Hypertension. 4. History of colon polyps. SOCIAL HISTORY He and his have 2 adult children. They live at their home in [place]. 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 He has no history of tobacco use. He does consume minimal amounts of alcohol. His hobbies include golf and traveling. His daughter Destiny Meadows is an pharmacometrician in [place]. FAMILY HISTORY Noncontributory. SYSTEMS REVIEW Positive as per history of present illness, otherwise unremarkable. VITAL SIGNS Blood pressure 120/68, height 185, weight 94.9, pulse is 72. PHYSICAL EXAMINATION GENERAL: Normal body habitus. Well-groomed. SKIN: No stasis dermatitis or ulceration. EYES: No xanthelasma or conjunctivitis. ENT: No oral mucosal pallor or cyanosis. HEART: Normal cardiac palpation. Normal first and second heart sounds. No murmurs, gallops, or rubs.Jugular venous pressure and pulsation normal. LUNGS: Normal respiratory effort and air movement. Clear to auscultation. ABDOMEN: Normal sized liver and spleen. No abdominal masses or tenderness. EXTREMITIES: No clubbing or cyanosis. No lower extremity edema. VESSELS: No carotid bruits. Normal pedal pulses. PSYCHIATRIC: Normal mood and affect. Oriented to person, place, and time. GAIT: Normal. DIAGNOSTICS Stress test: I also performed an exercise treadmill today. It provoked angina and ST-segment depression in leads V4, V5, and V6 at peak exercise, consistent with lateral ischemia. I have reviewed his labs from [place]. His LDL is 90. His liver function tests are normal. IMPRESSION/REPORT/PLAN 1. Dyslipidemia with reasonably good LDL control. 2. Hypertension with good blood pressure control but hypertensive response to exercise. 3. Coronary artery disease with [place] [employer] I angina. 4. Inducible ischemia at peak exercise. RECOMMENDATIONS: Mr. Doran will start amlodipine 5 mg daily for his angina. I will send that to his drugstore in [place]. He will need to be reassessed in 6 months' time and I would like to do that with a stress echocardiogram. I will also check his lipids and an EKG. He will come sooner should his symptoms intensify including the fatigue and angina. His lipids are satisfactory. I would like his LDL in the 50s but it would require several drug therapies and I do not think he is anxious to be on a lot more medicines. He is okay with this. It was a pleasure to see him and answer questions today. MARGIN CODE E4. R. 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 Complaints of fatigue Heart Rhythm : Regular Systolic Blood Pressure : 120 mmHg Diastolic Blood Pressure : 68 mmHg NIBP Mean : 85 mmHg Height : 185 cm(Converted to: 6 ft 1 inch(es), 73 inch(es)) Actual Weight : 94.9 kg(Converted to: 209 lb 3 oz) Dosing Weight Clinic : 94.9 kg Clinic BSA : 2.21 Body Mass Index : 27.73 kg/m2 IVETTE BRENNER RN - 02/28/2016 11:08 CDT General Info Information Given By : Patient Languages : Mongolian Is Patient Female and 13-50 no hysterectomy : No IVETTE BRENNER RN - 02/28/2016 11:06 CDT Subjective Pain Symptoms : No Cardiovascular Symptoms : Fatigue IVETTE BRENNER RN - 02/28/2016 11:06 CDT Dependent Habits Smoking Status : Never smoker Tobacco 2A : No Tobacco Use/Currently Using : No Tobacco Use/Last 30 Days : No Tobacco Use/Last 12 months : No Alcohol Use : Yes IVETTE BRENNER RN - 02/28/2016 11:06 CDT Allergy (As Of: 02/28/2016 11:08:14 CDT) Allergies (Active) NKA Estimated Onset Date: Unspecified ; Created By: KY LACEY RN; Reaction Status: Active ;Category: Drug ; Substance: NKA ; Type: Allergy ; Updated By: KY LACEY RN; Reviewed Date: 02/22/2016 10:51 CDT Exercise Vitals Days/Wk of Moderate or Greater Exercise : 4 Minutes/Day Engaged in Activity : 20 Total Minutes Exercise/Week : 80 IVETTE BRENNER RN - 02/28/2016 11:06 CDT Diabetes Intake Do You Have Diabetes : No IVETTE BRENNER RN - 02/28/2016 11:06 CDT Source: [facility] [employer] Document Id: [id number] CDT!13 documented in this encounter Plan of Treatment Not on filedocumented as of this encounter Visit Diagnoses Not on filedocumented in this encounter
--- OUTSIDE RECORDS SUMMARY | 2022-05-16 12:23 | XMS_ITS | Encounter Summary ---
:1945 Author Organization [facility] Address [address] [place] [address] Care Team Providers Name Role Phone Unavailable Primary Care Provider Unavailable Encounter Details Date Type Department Care Team Description 11/26/2017 Abstract DATA ABSTRACTION Provider, Historical Social History Tobacco Use Types Packs/Day Years [...] or relatives? How often do you attend yarsanism or jehovah's witness 1 to 4 times per year 11/08/2021 services? Do you belong to any clubs or organizations Yes 11/08/2021 such as yarsanism groups, unions, fraternal or athletic groups, or [...]
--- OUTSIDE RECORDS SUMMARY | 2022-05-16 12:23 | XMS_ITS | Encounter Summary ---
:1945 Author Organization [facility] Address [address] [place] [address] Care Team Providers Name Role Phone Unavailable Primary Care Provider Unavailable Encounter Details Date Type Department Care Team Description 06/10/2011 Hospital Encounter HX NO MAPPING Social History [...] or relatives? How often do you attend jain or hindu 1 to 4 times per year 11/08/2021 services? Do you belong to any clubs or organizations Yes 11/08/2021 such as jain groups, unions, fraternal or athletic groups, or [...] [place] [facility] (including now)? Sex Assigned at Date Recorded [...]
--- OUTSIDE RECORDS SUMMARY | 2022-05-16 12:23 | XMS_ITS | Encounter Summary ---
:1945 Author Organization [facility] Address [address] [place] [address] Care Team Providers Name Role Phone Unavailable Primary Care Provider Unavailable Encounter Details Date Type Department Care Team Description 09/05/2016 Hospital Encounter HX NO MAPPING Social History Tobacco Use Types Packs/Day Years Used Date Smoking Tobacco: Never Alcohol Habits Answer Date Recorded [...] or relatives? How often do you attend zoroastrianism or restoration 1 to 4 times per year 11/08/2021 services? Do you belong to any clubs or organizations Yes 11/08/2021 such as zoroastrianism groups, unions, fraternal or athletic groups, or [...] Refills Start Date End Date atorvastatin (LIPITOR) 40 Take 1 tablet by 0 08/27 mg tablet mouth every evening. tamsulosin (FLOMAX) 0.4 Take 0.4 mg by mouth 0 mg 24 hr capsule every evening. aspirin [address] tablet Take 1 [...] mg 24 hr mouth every evening. tablet nitroglycerin (NITROSTAT) Place 1-3 tablets 0 03/201711/05/2021 0.4 mg SL tablet under the tongue as needed. Place 1 tab under tongue at first sign of angina. Repeat in 5 min until relief. Max 3 tab/15 min traMADol (ULTRAM) 50 mg Take 1 tablet by 0 201512/08/2021 tablet mouth every 6 (six) hours as needed (Back pain). Rarely uses tretinoin (RETIN-A) 0.05 Apply 1 application 0 11/04/2021 % cream topically at bedtime. Apply pea sized amount to face every other night and increase up to nightly as tolerated triamcinolone (KENALOG) Apply 1 application 0 03/201711/04/2021 0.1 % cream topically as needed. As needed documented as of this encounter Plan of Treatment Not on filedocumented as of this encounter Visit Diagnoses Not on filedocumented in this encounter
--- OUTSIDE RECORDS SUMMARY | 2022-05-16 12:23 | XMS_ITS | Encounter Summary ---
:1945 Author Organization [facility] Address [address] [place] [address] Care Team Providers Name Role Phone Unavailable Primary Care Provider Unavailable Encounter Details Date Type Department Care Team Description 01/18/2018 Procedure visit Department of Genet Box Neoplasm Dermatology in [place], [place], [place] [address] [facility] Squamous Cell [address] [place], [place] [id number] [phone] Social History Tobacco Use Types Packs/Day Years [...] or relatives? How often do you attend gnosticism or sikhism 1 to 4 times per year 11/08/2021 services? Do you belong to any clubs or organizations Yes 11/08/2021 such as gnosticism groups, unions, fraternal or athletic groups, or [...] Sign Reading Time Taken Comments Blood Pressure 142/78 01/18/2018 2:00 PM CDT Pulse 62 01/18/2018 2:00 PM CDT Temperature - - Respiratory Rate - - Oxygen Saturation - - Inhaled Oxygen Concentration - - Weight - - Height - - Body Mass Index - - documented in this encounter Procedure Notes Symone Douglas M.D. - 01/18/2018 2:15 PM CDT PREOP INDICATION: REMOVAL. Date of Surgery: 01/18/2018 Surgeon: Dr. Sarmad Maurer M.D. Final Cleaner: Dr. Genet Box M.D., Symone Douglas M.D. Location: [facility] Floor:16 Room:[facility] Visit Type: Outpatient PostOp Diagnosis: Well-differentiated squamous cell carcinoma Anatomic Location: Left posterior forearm Preoperative size: 0.8 x 0.8 cm with circumferential margins of 6 mm for a total excision diameter of 2.4 x 2.4 cm. Procedure: Excision with intermediate layered closure Prior to the procedure, final verification of the patient identity and correct marked surgical site was performed. Procedural pause conducted to verify: correct patient identity, procedure to be performed and as applicable, correct side and site, correct patient position, and availability of implants, special equipment or special requirements. INFORMED CONSENT Discussed the risks, benefits, alternatives, and the necessity of other members of the healthcare team participating in the procedure. All questions answered and consent given. PATIENT EDUCATION Ready to learn, no apparent learning barriers were identified; learning preferences include listening. Explained diagnosis and treatment plan; patient expressed understanding of the content. Preoperative medications: None Anesthesia used was 1% lidocaine with 1:200,000 epinephrine. The skin was prepped in a sterile fashion with Hibiclens. The lesion was excised with 6-mm clinically tumor-free margins in a primary fashion through the skin and through the subcutaneous tissue. The wound edges were undermined as needed, and hemostasis was obtained with electrocoagulation. Due to wound size, the wound edges were closed in an intermediate layered fashion with 3-0 Vicryl, 4-0 Monocryl subcutaneous sutures and 5-0nylon skin sutures. Postoperative length: 6.9 cm. Estimated blood loss: Minimal. Complications: None. Wound care: Routine. Specimen sent to Dermatopathology. Biopsy report is pending. Postoperative medications: None Associated attestation - Sarmad Maurer M.D. - 01/18/2018 6:12 PM CDT Having reviewed the history, examined the patient, as well as discussed management, I agree with theimpression and plan as documented by May Santana ([phone]) who assisted me. In addition, I was also present for the critical portion and immediately available for the entire procedure we perform ed. documented in this encounter Consult Notes Symone Douglas M.D. - 01/18/2018 2:15 PM CDT Referral Cheyenne Leal M.D. Supervised by: Dr. Maurer Patient seen and discussed with supervising sales enablement consultant, Dr. Maurer, who evaluated the patient and concurs with the assessment and plan. Chief Complaint Squamous cell carcinoma, left posterior forearm HISTORY OF THE PRESENT ILLNESS Angel Doran is a pleasant 72 y.o. 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 It was treatedby ED&C after biopsy at his last clinic visit with Dr. Leal on January 06, 2018, however pathology showed involvement of the deep borders and thus he presents for excision with appropriate margins. He has no personal or family history of melanoma or nonmelanoma skin cancer. The dermatologic surgery preoperative information sheet was reviewed. The patient has a history of heart disease and has a stent placed. He also endorses a history of high blood pressure.He denies history of pacemaker, defibrillator, lung disease, liver disease, stroke, infectious diseases (including hepatitis B, hepatitis C, or HIV), diabetes, organ transplant, bleeding or other health problems. Thepatient denies artificial joints or other implants. Daily aspirin: Yes/taken today Anticoagulation: No Tobacco use: No Alcohol use: Occasional PHYSICAL EXAM Vitals: BP 142/78, HR 62 General: Awake, alert, in no acute distress, and with appropriate affect. Lymph nodes: No lymphadenopathy of neck, clavicle or bilateral axillae. Skin: A limited skin examination was performed per patient preference. On the left posterior forearmis a 0.8 x 0.8 cm erythematous lesion with overlying white scale consistent with a healing biopsy site. No evidence of residual disease or infection. 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 Given the nature of the lesion we recommended wide local excision. We discussed risks and benefits of the procedure including scar, pain, bleeding, infection, recurrence, activity limitations. Patient wished to proceed. 6 mm margins were used. The patient tolerated the procedure well. Please see the operative note for further detail. Cheyenne Leal M.D. will be in contact with the patient with the pathology results. PROCEDURAL PAUSE Procedural pause conducted to verify: correct patient identity, procedure to be performed, and as applicable, correct side and site, correct patient position, and availability of implants, special equipment, or special requirements. PATIENT EDUCATION Ready to learn. No apparent learning barriers were identified. Learning preferences include listening. Explained diagnosis and treatment plan; patient/guardian of patient expressed understanding of thecontent. INFORMED CONSENT Discussed the risks, benefits, alternatives, and the necessity of other members of the healthcare team participating in the procedure. All questions answered and consent given. documented in this encounter Plan of Treatment Not on filedocumented as of this encounter Procedures Procedure Name Priority Date/Time Associated Diagnosis Comme nts DERMATOPATHOLOGY Routine 01/18/2018 2:08 PM Malignant Neoplasm Results for this CDT Of Upper Limb procedure are in Squamous Cell the results Carcinoma Left section. documented in this encounter Results Dermatopathology (01/18/2018 2:08 PM CDT) Component Value Ref Test Analysis Performed At [facility] gist Range Method Time Signature Gross Description A. ??Received in formalin labeled with the patimarlena ibrahim's name, 01/20/2018 [facility] and further designated as 3:18 PM LABORATORIES - left posterior forearm skin excision is an unoriented 5. 8 CDT [facility] x 1.9 cm skin ellipse excised to depth of 0.5 cm. ??There is CAMPUS a 1 x 0.8 cm scar located at 0.5 cm from the closest lateral margin. ??The specimen is inked green, serially sectioned and account retention representative tissue is submitted for permanent sections in cassettes A1 to A3 as follows: ??A1 tips, A2-A3 scar. ??Grossed by QUIRINO. Report True Li 01/20/2018 [facility] electronically Alesia Lopez 3:18 PM LABORATORIES - signed by [facility] 01/20/2018 [facility] 3:18 PM LABORATORIES - [facility] Interpretation FINAL DIAGNOSIS 01/20/2018 [facility]IC[facility] A. ??Left posterior forearm, Skin excision: ??Re-excision of 3:18 PM LABORATORIES - squamous cell carcinoma ([id number], accession date [facility] 01/06/2018), ??no residual tumor identified in [facility] examined Specimen (Source) Anatomical Collection Method Collection Time Re ceived Time Location / / Volume Laterality Skin (Left 01/18/2018 2:08 PM posterior T forearm) Comment: [id number] Narrative This result has an attachment that is no t available. Cheyenne Leal M.D. LAB PATH DERM ORDERABLES Performing Organization Address City/State/ZIP Code Phon e Number [facility]ATORIES - [address] [place], [place] [address] [facility] documented in this encounter Visit Diagnoses Diagnosis Malignant Neoplasm Of Upper Limb Squamou s Cell Carcinoma Left documented in this encounter Administered Medications Inactive Administered Medications - up to 3 most recent administrations Medication Order MAR Action Action Date Dose Rate Site lidocaine-EPINEPHrine 1%-1:200,000 Given 01/18/2018 2:06 PM CDT 14 mL injection 14 mL (XYLOCAINE W/EPI) 14 mL, injection, Once, On 01/18/18 at 1415, For 1 dose documented in this encounter
--- OUTSIDE RECORDS SUMMARY | 2022-05-16 12:23 | XMS_ITS | Encounter Summary ---
:1945 Author Organization [facility] Address [address] [place] [address] Care Team Providers Name Role Phone Unavailable Primary Care Provider Unavailable Reason for Visit Reason Comments Triage Encounter Details Date Type Department Care Team Description 09/10/2021 Clinical Communication Department of National Expansion Recruiter, [facility] Cardiovascular Medicine A[place]ia Nickerson in [facility] [address] [place] [phone] Social History Tobacco Use Types Packs/Day [...] or relatives? How often do you attend sikh or buddhism 1 to 4 times per year 11/08/2021 services? Do you belong to any clubs or organizations Yes 11/08/2021 such as sikh groups, unions, fraternal or athletic groups, or [...] slept in a skilled nursing (including now)? Sex Assigned at Date Recorded Male 11/08/2021 12:12 PM CDT documented as of this encounter Miscellaneous Notes Telephone Encounter - Nina Duarte - 09/11/2021 12:[address] Drummond-- I do have the patient scheduled with you on November 04. Telephone Encounter - Kael Packer P.A.-C. - 09/10/2021 4:[address] Drummond, thank you for the quick response. I reached out to Sujata, the best PASS I know, who kindly agreed to assist you with the appointment scheduling and orders. Kael Mazariegos Telephone Encounter - Renee Drummond M.D. - 09/10/2021 3:16 PM CDT Regis Scruggs Yes, I am happy to see him in a valve clinic slot. I can preorder tests also if you will ask the PASS to reach out to me. Thank you, Ramirez Drummond Telephone Encounter - Kael Packer P.A.-C. - 09/10/2021 2:52 PM CDT TRIAGE NOTE FOR GENERAL CARDIOLOGY 75 y.o. y/o male [place] [address] [place] [address] [place] [address] externally referred Former patient of Dr. Drummond's. Last saw in 2017. Hx of hypertension, coronary artery disease, and aprevious LAD drug-eluting stent. In 2017 he was seen for chief complaint of chest pain and underwenta nuclear perfusion stress test, which was negative for ischemia. Patient now complains of occasional chest pain and lightheadedness. Patient request to be seen by Dr. Drummond. TINA TRIAGE RECOMMENDATIONS: Dr. Drummond, would you like to see Mr. Doran as he requested? If not, I can triage him to GEN CARD. Thanks, Kael Packer P.A.-C. Telephone Encounter - Sharlene Chamberlain - 09/10/2021 2:12 PM CDT Appointment/Visit Type/Schedule Procedure ?? Goal or summary: Would like to see Dr. Drummond ?? Dates interested in: first available Additional comments: General Cardiology Triage Questionnaire Information gathered by PASS upon initial Appointment Request Triage/Record Review Internal/external: external Self Referral or Provider Referral: self Primary Care Provider (name/facility): [employer]iter (name/facility): Only sees Dr. Drummond Please specify the primary cardiac concern(s) that you would like to address during your visit. If you have multiple concerns, please identify which is your top priority. CAD Are you experiencing any cardiac symptoms that you would like evaluated? (Examples: chest pain, shortness of breath, palpitations, lightheadedness/fainting). Yes, describe: occasional chest pain and light headedness Have you had prior evaluation or treatment of these concerns and/or symptoms? No Have you ever been diagnosed with any of the following: Heart Conditions: Coronary Artery Disease/Heart Attack: Angioplasty/Balloon/Stent Breathing conditions: None Have you had any of the following cardiac tests/procedures within the last 2 years? None of the above Do you have any limitations in physical activity? No Thank you, Sharlene Patient Appointment Services Specialist Division of Cardiovascular Diseases [address] [address] [email or web address] P RST CVD VALVE SCHEDULING documented in this encounter Plan of Treatment Not on filedocumented as of this encounter Visit Diagnoses Not on filedocumented in this encounter
--- OUTSIDE RECORDS SUMMARY | 2022-05-16 12:23 | XMS_ITS | Encounter Summary ---
:1945 Author Organization [facility] Address [address] [place] [address] Care Team Providers Name Role Phone Unavailable Primary Care Provider Unavailable Encounter Details Date Type Department Care Team Description 03/16/2007 Hospital Encounter HX NO MAPPING Social History [...] or relatives? How often do you attend spiritism or congregation 1 to 4 times per year 11/08/2021 services? Do you belong to any clubs or organizations Yes 11/08/2021 such as spiritism groups, unions, fraternal or athletic groups, or [...] slept in a senior care (including now)? Sex Assigned at Date Recorded Male 11/08/2021 12:12 PM CDT documented as of this encounter Plan of Treatment Not on filedocumented as of this encounter Visit Diagnoses Not on filedocumented in this encounter
--- OUTSIDE RECORDS SUMMARY | 2022-05-16 12:23 | XMS_ITS | Encounter Summary ---
:1945 Author Organization [facility] Address [address] [place] [address] Care Team Providers Name Role Phone Unavailable Primary Care Provider Unavailable Encounter Details Date Type Department Care Team Description 01/20/2018 Clinical Communication Department of Yonis, Jennifer Whaley, Dermatology in [place], [place] [address] [facility] [address] [place] [phone] Social History Tobacco Use Types Packs/Day Years [...] or relatives? How often do you attend buddhism or restorationist 1 to 4 times per year 11/08/2021 services? Do you belong to any clubs or organizations Yes 11/08/2021 such as buddhism groups, unions, fraternal or athletic groups, or [...] this encounter Miscellaneous Notes Telephone Encounter - Zurdo Lazaro R.N. - 01/29/2018 11:23 AM CDT Returned call to Mr. Doran. He wanted to know the results of the excision from 01/18/2018. He also wanted to know how long to bandage the wound. He again stated that there were not any topical suturesand that there is part of the incision that has dehisced. I suggested that he continue to bandage the wound until Thursday, February 01, 2018. He then no longer has to bandage the wound. He inquired aboutcare for the opened area. I advised the patient to continue bandaging the open area until the spot looked dry after showering. He could let the wound dry and scab over if he no longer wanted to bandage. It would just leave more of scar. I left this decision up to him. Patient was able to perform teachback. All questions were answered. Patient will call if he has any additional questions or will waituntil to his next skin check to ask any follow- up questions. Telephone Encounter - Jennifer Somers R.N. - 01/20/2018 9:35 AM CDT INFORMATION DISCUSSED Patient is calling in with questions regarding care of his surgical site status post excision on hisleft posterior forearm on 01/18/2018. He has questions regarding how long to keep the area covered, and how long he needs to use the elastic wrap. He would like to speak to the surgical nurse. PLAN Disposition/Recommendation: Surgical nursing notified to follow up with patient. Education: patient/caller able to teach back Caller agreeable to plan of care: yes The following references were used: nursing clinical judgement and patient education resources: title Care Following Skin Surgery documented in this encounter Plan of Treatment Not on filedocumented as of this encounter Visit Diagnoses Not on filedocumented in this encounter
--- OUTSIDE RECORDS SUMMARY | 2022-05-16 12:23 | XMS_ITS | Encounter Summary ---
:1945 Author Organization [facility] Address [address] [place] [address] Care Team Providers Name Role Phone Unavailable Primary Care Provider Unavailable Encounter Details Date Type Department Care Team Description 10/02/2005 - 10/03/2005 Hospital Encounter HX [facility] 4[facility] Social History Tobacco Use Types Packs/Day Years [...] How often do you attend quaker or buddhism 1 to 4 times per [...] slept in a care home (including now)? Sex Assigned at Date Recorded Male 11/08/2021 12:12 PM CDT documented as of this encounter Plan of Treatment Not on filedocumented as of this encounter Visit Diagnoses Not on filedocumented in this encounter
--- OUTSIDE RECORDS SUMMARY | 2022-05-16 12:23 | XMS_ITS | Encounter Summary ---
:1945 Author Organization [facility] Address [address] [place] [address] Care Team Providers Name Role Phone Unavailable [...] How often do you attend orthodoxy or yazdanism 1 to 4 times per [...]
--- OUTSIDE RECORDS SUMMARY | 2022-05-16 12:23 | XMS_ITS | Encounter Summary ---
:1945 Author Organization [facility] Address [address] [place] [address] Care Team Providers Name Role Phone Unavailable Primary Care Provider Unavailable Encounter Details Date Type Department Care Team Description 01/06/2018 Ancillary Procedure Department of Dermatology Social History [...] or relatives? How often do you attend congregation or congregational 1 to 4 times per year 11/08/2021 services? Do you belong to any clubs or organizations Yes 11/08/2021 such as congregation groups, unions, fraternal or athletic groups, or [...] Date/Time Associated Comments Diagnosis DERMATOLOGY IMAGE Routine 01/06/2018 10:40 Result s for this EXAM AM CDT procedure are i n the results section. documented in this encounter Results DERMATOLOGY IMAGE EXAM (01/06/2018 10:40 AM CDT) Specimen (Source) Anatomical Collection Method Collection Time Re ceived Time Location / / Volume Laterality 01/06/2018 10:40 AM CDT Narrative [facility] - 01/06/2018 10:42 AM CDT This order has been created [...]
--- OUTSIDE RECORDS SUMMARY | 2022-05-16 12:24 | XMS_ITS | Clinical Summary ---
:1945 Author Organization [facility] [place] [address] Care Team Providers Name Role Phone Franc Arenas MD Primary Care Provider Allergies No known active allergies Medications Medication Sig Dispensed Refills Start Date End Date Status ASPIRIN 325 MG take 1 tablet 100 0 05/05/2008 Active TABIndications: Chronic (325mg) daily ischemic heart disease, unspecified, Chronic ischemic heart disease, unspecified traMADol (ULTRAM) 50 mg TAKE ONE TABLET 30 tablet 0 05/02/2011 Active tablet BY MOUTH ONCE DAILY NEEDED nitroglycerin Place 1 tablet 25 tablet 0 05/26/2011 Active (NITROSTAT) 0.4 mg SL under the tongue tabletIndications: every 5 minutes Chronic ischemic heart if needed for disease, unspecified Chest Pain. omeprazole (PRILOSEC) Take 1 capsule 0 02/07/2015 Active 20 mg Delayed-Release by mouth once capsule daily before a meal. atorvastatin (LIPITOR) Take 1 tablet by 0 02/07/2015 Active 40 mg tablet mouth once daily. doxazosin (CARDURA) 4 Takes 4 mg in 135 tablet 1 02/07/2015 Active mg tabletIndications: Kylee none in Am Unspecified essential hypertension, Hypertrophy of prostate without urinary obstruction and other lower urinary tract symptoms (LUTS) cholecalciferol Take 1 capsule 0 02/07/2015 Active (VITAMIN D-3) 2,000 by mouth once unit capsule daily. metoprolol tartrate Take 1 tablet by 0 02/07/2015 Active (LOPRESSOR) 25 mg mouth once tablet daily. losartan (COZAAR) 100 Take 1 tablet by 0 02/07/2015 Active mg tablet mouth once daily. Cholecalciferol, Take 1 tablet by 0 06/09/2011 Active Vitamin D3, 2,000 unit mouth. tablet triamcinolone Apply topically 0 09/05/2016 Active (ARISTOCORT; KENALOG) to affected 0.1 % cream area(s). tadalafil (CIALIS) 10 As Needed 0 03/04/2018 Active mg tablet tamsulosin (FLOMAX) 0.4 Take 0.4 mg by 2 07/21/2018 Active mg capsule mouth. tadalafil Take 1 tablet by 8 tablet 11 07/26/2018 Ac tive (CIALIS;ADCIRCA) 20 mg mouth once daily tabletIndications: if needed for Erectile dysfunction, Erectile unspecified erectile Dysfunction. dysfunction type Take 30 minutes before sexual activity. sildenafil citrate Take 1 tablet by 8 tablet 11 07/26/2018 Active (VIAGRA) 100 mg mouth once daily tabletIndications: if needed for Erectile dysfunction, Erectile unspecified erectile Dysfunction. dysfunction type Take 30min to 4 hours before sexual activity. Max 100mg/24hr. Active Problems Problem Noted Date Colon polyps 05/05/2008 Overview: Next colonoscopy 2010 Chronic rhinitis 07/21/2007 Unspecified essential hypertension Chronic ischemic heart disease, unspecified Overview: 09/2005 Angiogram at [place] left main 20% left anterior descending 80% stent took it down to 40%; distal 20% circumflex 20% Other and unspecified hyperlipidemia Hypertrophy of prostate without urinary obstruction and other lower urinary tract symptoms (LUTS) Resolved Problems Problem Noted Date Resolved Date Retinal detachment 01/30/2009 05/15/2009 Overview: Repaired in 2008. Ronald Solorio MD signed electronically .................... 05/15/2009 Preop exam for internal medicine 01/30/2009 009 Encounters Date Type Specialty Care Team Description 03/28/2022 Hospital Encounter Franc Arenas MD 03/28/2022 Travel 03/24/2022 Hospital Encounter Franc Arenas MD 03/24/2022 Travel 03/21/2022 Hospital Encounter Franc Arenas MD 03/21/2022 Travel 03/19/2022 Hospital Encounter Franc Arenas MD 03/19/2022 Travel 03/17/2022 Hospital Encounter Franc Arenas MD 03/17/2022 Travel 03/14/2022 Hospital Encounter Franc Arenas MD 03/14/2022 Travel 03/12/2022 Hospital Encounter Franc Arenas MD 03/12/2022 Travel 03/10/2022 Hospital Encounter Franc Arenas MD 03/10/2022 Travel 03/07/2022 Hospital Encounter Franc Arenas MD 03/07/2022 Travel 03/05/2022 Hospital Encounter Franc Arenas MD 03/04/2022 Hospital Encounter 03/04/2022 Travel 02/26/2022 Hospital Encounter Franc Arenas MD 02/26/2022 Travel 02/24/2022 Hospital Encounter Franc Arenas MD 02/24/2022 Travel 02/21/2022 Hospital Encounter Franc Arenas MD 02/21/2022 Travel 02/19/2022 Hospital Encounter Franc Arenas MD 02/19/2022 Travel 02/17/2022 Hospital Encounter Franc Arenas MD 02/17/2022 Travel 02/14/2022 Hospital Encounter Franc Arenas MD 02/14/2022 Travel from Last 3 Months Immunizations Name Administration Dates Next Due AMB Influenza, IIV3 (Age >=3 years)(Flu 04/20/2008 Clinic Only) Influenza, IIV3 (Age >=3 years) 05/01/2010, 04/28/2007, 03/29 Pneumococcal Poly,23-Valent (Pneumovax) 04/08/2006, 01/24/19 98 Td (Age >=7 Years) 02/10/1997 Td, Preservative Free (age >= 7 Years) 07/21/2007 Zoster (Zostavax-ZVL, live) 05/19/2007 Family History Medical History Relation Name Comments Hypertension Father Cancer Maternal Grandfather Arthritis Mother Rheumatoid Stroke Mother lots of TIA Diabetes Paternal Grandmother Relation Name Status Comments Father Maternal Grandfather Mother Paternal Grandmother Social History Tobacco Use Types Packs/Day Years Used Date Never Smoker Smokeless Tobacco: Never Used Tobacco Cessation: Counseling Given: Yes Alcohol Use Standard Drinks/Week Comments Yes 5 (1 standard drink = 0.6 oz pure alcoho l) social drinks 1 day /week Alcohol Habits Answer Date Recorded How often do you have a drink containing Not asked alcohol? How many drinks containing alcohol do you Not asked have on a typical day when you are drinking? How often do you have six or more drinks on Not asked one occasion? Comment: social drinks 1 day /week 01/31/2009 Sex Assigned at Date Recorded Not on file Obstetrics History Last Filed Vital Signs Vital Sign Reading Time Taken Comments Blood Pressure 138/70 12/24/2021 2:00 PM CDT Pulse 78 12/24/2021 2:00 PM CDT Temperature 36.4 ??C (97.6 ??F) 07/26/2018 2:12 PM TRAPEZE PERFORMER Respiratory Rate 18 12/24/2021 2:00 PM CDT Oxygen Saturation 97% 12/24/2021 2:00 PM CDT Inhaled Oxygen Concentration - - Weight 88.2 kg (194 lb 8 oz) 12/24/2021 2:00 PM CDT Height 182.9 cm (6') 12/24/2021 2:00 PM CDT Body Mass Index 26.38 12/24/2021 2:00 PM CDT Plan of Treatment Health Maintenance Due Date Last Done Comments Tdap 11/18/1956 Hepatitis C screening for age [birth year]11[birth year]18/1963 18-79 Pneumococcal series for age 65+ (2 04/08/2007 04/08/2006, 0 01/24/1998 - PCV) Zoster (shingles) series for age 0107/14/2007 05/19/2007 50+ (2 of 3) Medicare Wellness for age 65+ 11/18/2008 Tetanus booster 07/21/2017 07/21/2007, 02/10/1997 BMI (ht and wt on same day) for 07/26/2019 07/26/2018 age 18+ COVID-19 vaccine series (5 - 01/09/2022 11/14/2021, 021, Booster for Pfizer series) 09/04/2020, Additiona l history exists Influenza for age 65+ 02/27/2022 05/01/2010, 04/20/2008, 04/28/2007, Additional history exists Depression screening for age 12+ 03/24/2023 03/24/2022, Medical Devices Implanted Type Area Traveling Freight Agent Device Shelf Model / Identifier Expiration Serial / Date Lot Sleeve Dariana 1.00i.D.[id number] Od [id number] [employer] - [id number] Left: Eye [employer]ian [id number] / Implanted: Qty: 1 on 01/31/2009 at [facility] [employer] / [id number] Procedures Procedure Name Priority Date/Time Associated Comments Diagnosis SCAN-CARDIAC 03/28/2022 12:00 Results for this REHABILITATION AM CDT procedure are in the results section. SCAN-CARDIAC 03/24/2022 12:00 Results for this REHABILITATION AM CDT procedure are in the results section. SCAN-CARDIAC 03/21/2022 12:00 Results for this REHABILITATION AM CDT procedure are in the results section. SCAN-CARDIAC 03/19/2022 12:00 Results for this REHABILITATION AM CDT procedure are in the results section. SCAN-CARDIAC 03/17/2022 12:00 Results for this REHABILITATION AM CDT procedure are in the results section. SCAN-CARDIAC 03/14/2022 12:00 Results for this REHABILITATION AM CDT procedure are in the results section. SCAN-CARDIAC 03/12/2022 12:00 Results for this REHABILITATION AM CDT procedure are in the results section. SCAN-CARDIAC 03/07/2022 12:00 Results for this REHABILITATION AM CDT procedure are in the results section. SCAN-CARDIAC 03/05/2022 12:00 Results for this REHABILITATION AM CDT procedure are in the results section. SCAN-CARDIAC 03/04/2022 12:00 Results for this REHABILITATION AM CDT procedure are in the results section. SCAN-CARDIAC 02/26/2022 12:00 Results for this REHABILITATION AM CDT procedure are in the results section. SCAN-CARDIAC 02/24/2022 12:00 Results for this REHABILITATION AM CDT procedure are in the results section. SCAN-CARDIAC 02/21/2022 12:00 Results for this REHABILITATION AM CDT procedure are in the results section. SCAN-CARDIAC 02/19/2022 12:00 Results for this REHABILITATION AM CDT procedure are in the results section. SCAN-CARDIAC 02/17/2022 12:00 Results for this REHABILITATION AM CDT procedure are in the results section. SCAN-CARDIAC 02/14/2022 12:00 Results for this REHABILITATION AM CDT procedure are in the results section. from Last 3 Months Results SCAN-CARDIAC REHABILITATION (03/28/2022 12:00 AM CDT)Only the most recent of16 resultswithin the time period is included. Narrative 03/28/2022 12:00 AM CDT This result has an attachment that is no t available. Ordered by an unspecified provider. Other Clinical Staff OTHER from Last 3 Months Insurance Payer Benefit Plan / Subscriber ID Effective Dates Phone Addre ss Type Group MEDICARE PART B MEDICARE PART B [id number] 2008-Presen ATTN: CLAIMS - HB USE ONLY HB ONLY t [address] [place] [address] MEDICARE - PB MEDICARE PB [id number] 2008-Presen ATTN : CLAIMS USE ONLY ONLY t [address] [place] [address] BLUE CROSS BLUE CROSS OF [id number] 2016-Presen [address] [place] [address] Advance Directives Latest Code Status on File Code Status Date Activated Date Inactivated Comments Full Code 01/31/2009 9:10 AM 01/31/2009 4:39 PM Care Teams Finance Analyst Relationship Specialty Start Date End Date Franc Arenas MD PCP - General Internal Medicine 12/16/211999 [place] [address]
[2022-05-16 13:18] LABS: Chloride* 107 mmol/L (96-114); Potassium* 5.1 mmol/L (3.6-5.1); Sodium* 138 mmol/L (135-149)
[2022-05-16 13:20] LABS: Cholesterol* 116 mg/dL (90-199); Creatinine* 1.3 mg/dL (0.5-1.5); Estimated Glomerular Filt Rate 56 ml/min
[2022-05-16 13:21] LABS: Alanine Aminotransferase* 21 U/L (4-50); Blood Urea Nitrogen* 24 mg/dL (7-30); Carbon Dioxide* 27 mmol/L (20-32); Glucose* 84 mg/dL (60-115); Triglycerides* 48 mg/dL (40-149)
[2022-05-16 13:22] LABS: HDL Cholesterol* 52 mg/dL (>=40); LDL Cholesterol Calculated 54 mg/dL (<100)
== END 2022-05-16 12:07 | disposition home or self-care (01) ==
PROVIDERS: PCP Internal Medicine; Visit Provider Family Medicine
DX: E78.5 Hyperlipidemia, unspecified (principal); I10 Essential (primary) hypertension
CPT/HCPCS: 80048; 80061; 84460

== ENCOUNTER 2022-06-13 16:33 | Outpatient (CLI) | payer MEDICARE, BC, SELFPAY | END 2022-06-13 16:34 | disposition home or self-care (01) | LOC: RAD 16:35 | PROVIDERS: PCP Family Medicine; Visit Provider Family Medicine | DX: I48.91 Unspecified atrial fibrillation (principal) | CPT/HCPCS: 93225; 93226 ==

== ENCOUNTER 2023-09-04 10:58 | Outpatient (CLI) | payer MEDICARE, BC, SELFPAY | END 2023-09-04 10:59 | disposition home or self-care (01) | PROVIDERS: PCP Family Medicine; Visit Provider Family Medicine | DX: E78.2 Mixed hyperlipidemia (principal); Z12.5 Encounter for screening for malignant neoplasm of prostate | CPT/HCPCS: 80048; 80061; 84460; G0103 ==

== ENCOUNTER 2024-01-07 12:53 | Outpatient (CLI) | payer MEDICARE, BC, SELFPAY ==
--- OUTSIDE RECORDS SUMMARY | 2024-01-07 12:56 | XMS_ITS | Encounter Summary ---
Author Organization [facility] Address [address] [place] [id number] Care Team Providers Care Tar Processing Technician Name Role Phone Elsewhere, Pcp Primary Care Provider Unavailabl e Encounter Details Date Type Department Care Team (Latest Contact Info) Description 10/02/2023 9:38 AM CDT - 10/02/2023 11:59 PM CDT Hospital Encounter Department of Laboratory Medicine and Pathology, [facility] in [place], [place] [address] [place] [address] Silvio Medel M.D. [address] [place] [phone] Dysfunction Erectile Discharge Disposition: Home or Self Care Social History Tobacco Use Types Packs/Day Years Used Date Smoking Tobacco: Former Smokeless Tobacco: Never Comments:Smoked a couple yea rs but it was 60 years ago Alcohol Use Standard Drinks/Week Comments Yes 5 (1 standard drink = 0.6 oz pur e alcohol) 6 drinks per week Humiliation, Afraid, Rape, and Kick questionnair e Answer Date Recorded Within the last year, have y ou been afraid of your partner or ex-partner? No 02/17/2023 Within the last year, have y ou been humiliated or emotionally abused in other ways by your partner or ex-partner? No Within the last year, have y ou been kicked, hit, slapped, or otherwise physically hurt by your partner or ex-partner? No 02/17/2023 Within the last year, have y ou been raped or forced to have any kind of sexual activity by your partner or ex-partner? No 02/17/2023 Social Connection and Isolat ion Panel [NHANES] Answer Date Recorded In a typical week, how many times do you talk on the phone with family, friends, or neighbors? Once a week 11/08/2021 How often do you get togethe r with friends or relatives? Three times a week 11/08/2021 How often do you attend [facility] or worship services? 1 to 4 times per year 11/08/2021 Do you belong to any clubs o r organizations such as temple groups, unions, fraternal or athletic groups, or school groups? Yes 11/08/2021 How often do you attend meet ings of the clubs or organizations you belong to? More than 4 times per year 11/08/2021 Are you , , di vorced, , never , or living with a partner? 11/08/2021 AUDIT-C Answer Date Recorded Q1: How often do you have a drink containing alc ohol? 2-3 times a week 11/08/2021 Q2: How many drinks containi ng alcohol do you have on a typical day when you are drinking? 3 or 4 11/08/2021 Q3: How often do you have si x or more drinks on one occasion? Never 11/08/2021 Overall Financial Resource Strain (CARDIA) Answe r Date Recorded How hard is it for you to pa y for the very basics like food, housing, medical care, and heating? Not hard at all 02/17/2023 PHQ-2 Answer Date Recorded PHQ-2 Score 3 11/27/2021 [facility] - Occupational Stress Questionnaire Answer Date Recorded Do you feel stress - tense, restless, nervous, or anxious, or unable to sleep at night because your mind is troubled all the time - these days? Only a little 11/08/2021 Exercise Vital Sign Answer Date Recorde d On average, how many days pe r week do you engage in moderate to strenuous exercise (like a brisk walk)? 6 days 02/17/2023 On average, how many minutes do you engage in exercise at this level? 30 min 02/17/2023 Hunger Vital Sign Answer Date Recorded Within the past 12 months, y ou worried that your food would run out before you got the money to buy more. Never true 02/18/20 Within the past 12 months, t he food you bought just didn't last and you didn't have money to get more. Never true 02/17/2023 PRAPARE - Transportation Answer Date Re corded In the past 12 months, has l ack of transportation kept you from medical appointments or from getting medications? No 01/28 In the past 12 months, has l ack of transportation kept you from meetings, work, or from getting things needed for daily living? No 02/17/2023 Depression Answer Date Recor ded PHQ-9 Total Score (max 27) 10 11/27 Nutrition Answer Date Recorded Nutrition: EVOO Fat Source No 02/17 On average, how many serving s of fruits and vegetables do you eat per day (serving size is equal to 1 cup or approximately the size of a tennis ball)? 3-5 02/17/2023 Dental Answer Date Recorded Dental: Regular Dentist Yes 11/09/19 Employment Answer Date Recorded Employment status Retired 02/17/2023 Housing Stability Answer Date Recorded What is your living situation today? I have a [facility] place to live 02/17/2023 Education Answer Date Recorded What is the highest level of school you have completed or the highest degree you have received? 12th grade 11/08/2021 Sex and Gender Information Value Date Recorded Sex Assigned at Male 11/08/2021 12:12 PM CDT Gender Identity Male 11/08/2021 12:12 PM CDT Sexual Orientation Straight 11/08/2021 12 :12 PM CDT documented as of this encounter Medications at Time of Discharge Medication Sig Dispensed Refills Start Date End Date amLODIPine (NORVASC) 5 mg tablet TAKE ONE TABLET (5 MG) BY MOUTH AT BEDTIME. 20 tablet 02/09/2023 aspirin 81 mg chewable tablet Chew 81 mg daily. atorvastatin (LIPITOR) 40 mg tablet Take 1 tablet by mouth every evening. 09/05/2016 famotidine (PEPCID) 20 mg tablet Take 20 mg by mouth daily. 09/04/2023 hydroCHLOROthiazide (HYDRODIURIL) 25 mg tablet Take 1 tablet (25 mg total) by mouth daily. 90 tablet 3 06/17/2022 losartan (COZAAR) 100 mg tablet Take 1 tablet (100 mg total) by mouth daily. 100 tablet 3 03/11/2022 nitroglycerin (NITROSTAT) 0.[address] 1 tablet (0.4 mg total) under the tongue every 5 (five) minutes as needed for chest pain. 100 tablet 11 06/26/2022 tamsulosin (FLOMAX) 0.4 mg 24 hr capsule Take 0.4 mg by mouth every evening. 09/05/2016 traMADoL (ULTRAM) 50 mg tablet Take 50 mg by mouth as needed for pain. (Rarely) ezetimibe (ZETIA) 10 mg tablet Take 1 tablet (10 mg total) by mouth daily. 90 tablet 3 03/27/2022 10/05/2023 metoprolol succinate (TOPROL-XL) 25 mg 24 hr tablet Take 25 mg by mouth daily. Do not crush or chew. 10/05/2023 documented as of this encounter Plan of Treatment Upcoming Encounters Date Type Department Care Team (Late st Contact Info) Description 01/12/2024 3:00 PM CDT Comprehensive Visit Department of Dermatology in [place], [place] [address] [place] [phone] Paris Conroy APRN, C.N.P., D.N.P. [address] [place] [phone] 02/03/2024 8:30 AM CDT Procedure visit Department of Dermatology in [place], [place] [address] [place] [phone] Alejo Hilliard M.D. [address] [place] [phone] documented as of this encounter Procedures Procedure Name Priority Date/Time Associated Diagnosis Comments LIPID PANEL, S Routine 10/02/2023 10:00 AM CDT Dysfunction Erectile TESTOSTERONE, TOT AND FR, S Routine 10/02/2023 10:00 AM CDT Dysfunction Erectile GLUCOSE, FASTING, S/P Routine 10/02/2023 10:00 AM CDT Dysfunction Erectile documented in this encounter Results * (ABNORMAL) Testosterone, Total and Free (10/02/2023 10:00 AM CDT) Testosterone, Free, S 11.4(H) 3.08 - 11.3 ng/dL 10/08/2023 2:50 PM CDT [facility] Comment: ----ADDITIONAL INFORMATION---- This test was developed and its performance characteristics determined by [facility] in a manner consistent with CLIA requirements. This test has not been cleared or approved by the U.S. Food and Drug Administration. Testosterone, Total by Mass Spectrometry, Serum 707 240 - 950 ng/dL 10/07/2023 1:49 PM CDT [facility] Comment: ----ADDITIONAL INFORMATION---- Testing performed by Liquid Chromatography-Tandem Mass Spectrometry (LC-MS/MS). This test was developed and its performance characteristics determined by [facility] in a manner consistent with CLIA requirements. This test has not been cleared or approved by the U.S. Food and Drug Administration. Blood (Blood, Venous) 10/02/2023 10:00 AM CDT 10/02/2023 1:09 PM CDT Silvio Medel M.D. LAB BLOOD NON ADD-ON [facility] [address] [place] [address] [facility] [address] [place] [address] [place] [address] * Lipid Panel (10/02/2023 10:00 AM CDT) Triglycerides 57 mg/dL 10/02/2023 10:52 AM CDT DT Comment: ----REFERENCE VALUE---- Normal: <150 mg/dL Borderline High: 150-199 mg/dL High: 200-499 mg/dL Very High: > or =500 mg/dL Cholesterol, Total 154 mg/dL 2023 10:52 AM CDT DT Comment: ----REFERENCE VALUE---- Desirable: < 200 mg/dL Borderline High: 200 - 239 mg/dL High: > or = 240 mg/dL Cholesterol, LDL, Calculated 91 mg/dL 10/02/2023 10:52 AM CDT DTL Comment: ----REFERENCE VALUE---- Desirable: <100 mg/dL Above Desirable: 100-129 mg/dL Borderline High: 130-159 mg/dL High: 160-189 mg/dL Very High: >=190 mg/dL ----ADDITIONAL INFORMATION---- LDL cholesterol calculated using the Nogueira/NIH equation. Cholesterol, HDL, S 51 >=40 mg/dL 10/02/2023 10:52 AM CDT DTL Cholesterol, Non-HDL, Calculated 103 mg/dL 10/02/2023 10:52 AM CDT DTL Comment: ----REFERENCE VALUE---- Desirable: <130 mg/dL Above Desirable: 130-159 mg/dL Borderline High: 160-189 mg/dL High: 190-219 mg/dL Very High: > or =220 mg/dL Fasting (8 HR or more) Yes 10/02/2023 10:37 AM CDT DTL Blood (Blood, Venous) 10/02/2023 10:00 AM CDT 10/02/2023 10:37 AM CDT Silvio Medel M.D. [place] [address], [place] [address] * Glucose, Fasting (10/02/2023 10:00 AM CDT) Glucose, P 95 70 - 100 mg/dL 10/02/2023 10:52 AM CDT DTL Last Intake 15 hr 10/02/2023 10:37 AM CDT DTL Blood (Blood, Venous) 10/02/2023 10:00 AM CDT 10/02/2023 10:37 AM CDT Suzette R Tentis P.A.-C. LAB BLOOD NON ADD -ON [facility] [place] [employer] [address] [place] [address], [place] DTL [facility] [address] [place] [address] documented in this encounter Visit Diagnoses Diagnosis Dysfunction Erectile documented in this encounter Additional Health Concerns Assessment Noted Time PHQ-9 Depression Total Score: 10 022 1:28 PM CDT documented as of this encounter Care Teams Tar Processing Technician Relationship Specialty Start Date End Date Elsewhere, Pcp PCP - General 12/05/21 documented as of this encounter
--- OUTSIDE RECORDS SUMMARY | 2024-01-07 12:56 | XMS_ITS | Encounter Summary ---
Author Organization [facility] Address [address] [place] [phone] Care Team Providers Care Director Of Retail Marketing Name Role Phone Elsewhere, Pcp Primary Care Provider Unavailabl e Reason for Visit * Outpatient (Routine) - Closed Specialty Diagnoses / Procedures Referred By Star ibrahim Referred To Contact Urology Diagnoses Dysfunction Erectile Tentis, Suzette Lund P.A.-C. [address] [place] [phone] [facility] Referral ID Status Reason Start Date Expiration Date Visits Re quested Visits Authorized [id number] Closed 09/17/2023 03/18/2025 1 1 Encounter Details Date Type Department Care Team (Latest Contact Info) Description 10/07/2023 10:30 AM CDT Comprehensive Visit Department of Urology in [place], [place] [address] [place] [phone] Silvio Medel M.D. [address] [place] [phone] Dysfunction Erectile Social History Tobacco Use Types Packs/Day Years [...] week 11/08/2021 How often do you attend chur or anglican services? 1 to 4 times per year 11/08/2021 Do you belong to any clubs o r organizations such as zoroastrianism groups, unions, fraternal or [...] Answer Date Recorded PHQ-2 Score 3 11/27/2021 [facility] Occupat ional Health - Occupational Stress [...] your living situation today? I have a [facility] place to live 02/17/2023 Education Answer Date [...] documented as of this encounter Consult Notes * Suzette Arias P.A.-C. - 10/07/2023 10:30 AM CDT SUBJECTIVE REQUESTING PROVIDER Suzette Arias P.A.-C. REASON FOR CONSULT Erectile dysfunction HISTORY OF PRESENT ILLNESS Mr. Doran returns today to discuss further details regarding penile prosthesis with Dr. Medel. I last saw him personally in October of 2021 for erectile dysfunction and prior to that he saw Dr. Phan in August of 2016 for the same diagnosis. He is trialed and failed PDE5 inhibitors. We discussed penile injections which he was not interested in. He also notes some swelling on the right side of his scrotum and he is concerned about this and would also like this evaluated. 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 The coronary artery bypass grafting surgery was performed in November 2021. He underwent three-vessel coronary artery bypass grafting surgery with a left internal mammary artery graft to the left anterior descending, a vein graft to the right coronary artery and a vein graft to the ramus intermedius. He also has hypertension, dyslipidemia and chronic kidney disease. He is scheduled for coronary artery bypass x2 on December 06, 2021. He is still very active and does pull ups for instance at the gym. Answers submitted by the patient for this visit: [employer] - Peyronie's Disease (Submitted on 09/30/2023) Which direction does it curve?: up How many degrees does it curve (estimated)?: 25 How long ago did you first notice any pain or curvature?: 5 Years Do you recall experiencing any trauma (during sexual activity or otherwise) prior to development ofthe curvature?: No Do you experience any pain with erections?: No Does the curvature prevent you from engaging in penetrative intercourse?: No Does the curvature cause your partner any pain during penetrative intercourse?: No Since you first noticed the curvature, has it improved, worsened, or stayed the same?: unchanged Have you experienced any penile shortening?: Yes Have you tried or are currently taking any medications for Peyronie???s disease?: No Have you undergone any injection therapies (verapamil, interferon, Xiaflex) for Peyronie???s disease?: No Have you ever undergone surgery for Peyronie???s disease?: No (Submitted on 09/30/2023) Inches shortened: 1 [facility]- Peyronie's Disease (Submitted on 09/30/2023) Do you have any penile curvature?: Yes [facility] - Erectile Function (Submitted on 09/30/2023) None: Yes ERECTILE DYSFUNCTION Erectile Dysfunction Intake Questionnaire: Do you have any difficulty obtaining or maintaining an erection satisfactory for sexual intercourse?: yes How many months or years have you noticed difficulties with erections?: 3 years How many times per month do you engage in sexual intercourse with a partner?: 0 How would you rate the hardness of your erection without any medications or supplements?: 0 = Penisdoes not enlarge How many minutes can you maintain an erection that is strong enough to penetrate?: 0 Long enough for successful intercourse?: no How strong are your night-time or nibbler operator erections?: 0 = Penis does not enlarge Have you ever tried medications like Viagra, Levitra, Cialis, or Stendra?: yes How often are you currently using medications like Viagra, Levitra, Cialis, or Stendra?: Not currently using How many years ago did you first try medications like Viagra, Levitra, Cialis, or Stendra?: 3 How strong of an erection can you get with Viagra, Levitra, Cialis, or Stendra?: 0 = Penis does notenlarge Have you ever, or do you currently use penile injection therapies?: no Have you ever or do you currently use a vacuum device or erection constriction ring to help with erections?: no Have you had your prostate removed (prostatectomy)?: no Have you ever received any form of hormone therapy (shots or pills to reduce your testosterone?: no TESTOSTERONE Testosterone Intake Questionnaire PEYRONIE'S DISEASE @peyronintake@ SEXUAL DYSFUNCTION [facility] SEXUAL DYSFUNCTION INTAKE QUESTIONNAIRE PMH/PSH The following portions of the patient's history were reviewed and updated as appropriate: current medications, family history, medical history, social history, surgical history, and problem list. REVIEW OF SYSTEMS Psychiatric/Behavioral: Positive for erectile dysfunction. The following systems were negative: Constitutional, Skin, Eyes, ENT, Respiratory, Cardiovascular, Gastrointestinal, Genitourinary, Hematologic, Musculoskeletal, Neurological OBJECTIVE PHYSICAL EXAM Constitutional: He is oriented to person, place, and time. He appears well- developed and well-nourished. HENT: Head: Normocephalic. Eyes: EOM are normal. Pulmonary/Chest: Effort normal. Musculoskeletal: Normal range of motion. Neurological: He is alert and oriented to person, place, and time. Skin: Skin is warm and dry. Psychiatric: He has a normal mood and affect. His behavior is normal. Genitourinary: Circumcised phallus Left palpable 14 cc testicle RIGHT moderate hydrocele ASSESSMENT / PLAN #1 Dysfunction Erectile #2 RIGHT hydrocele We thoroughly discussed the risks and benefits of penile prosthesis insertion. Risks discussed included but were not limited to implant infection (~ 1% virgin, >1% complex); injury to adjacent structure (uretha, bladder, vascular, viscous); device longevity 95% @ 5 years, 85% @ 10 years, and 70%@ 15 years; penile disfigurement (including penile curvature, torsion and glans loss) and penile length concerns (men may perceive shortening based on lack of glans engorgement). Benefits include reliability, rigidity and high satisfaction rates >90%. All patient questions and concerns were discussed. Pre-Implant Check-list: Curvature or shortening: none Anti-coagulants: ASA 81 mg [place] location: [facility] Pharmacy & Plasty: no history of narcotic use, not indicated Anti-fungals: no, no diabetes, no immunosuppression, no revision LUTS: none, never had catheter Discussed hydrocelectomy can be done at the time of IPP. The patient expressed understanding of the plan involved, and all questions were answered. PLAN: Will discuss with his regarding IPP Scrotal US prior to surgery to eval for the Right hydrocele Would plan to do RIGHT hydrocelectomy at the same time. He is thinking sometime this fall as he enjoys golfing and doesn't want to miss out on the season. Signed by: Suzette Airas P.A.-C. 10/07/2023 10:04 AM CDT Associated attestation - Silvio Medel M.D. - 10/07/2023 5:12 PM CDT CC: Penile prosthesis consultation I saw and evaluated the patient, participating in the gama portions of the service. I reviewed Vipul' note. I agree with her findings and plan. In brief, this is a pleasant 77-year-old gentleman with a history of coronary artery disease statuspost grafting most recently in November 2021. He is tried and failed oral PDE5 inhibitors. He has been counseled on injection therapy as well as the VD. He has some right-sided scrotal swelling which on exam likely represents a hydrocele. He is interested in consideration of penile prosthesis and we spent a significant amount of time reviewing this treatment option in great detail. He is going to review the option with his . I suggested that we would obtain a scrotal ultrasound prior to the procedure, but we would likely perform hydrocelectomy at the time of prosthesis placement. He will reach out if he has additional questions or would like to proceed. He is an avid golfer and I suspect hewould pursue this treatment in the fall. documented in this encounter Plan of Treatment Upcoming Encounters Date Type Department Care Team (Late st Contact Info) Description 01/12/2024 3:00 PM CDT Comprehensive Visit Department of Dermatology in [place], [place] [address] [place] [phone] Paris Conroy APRN, C.N.P., D.N.P. [address] [place] [phone] 02/03/2024 8:30 AM CDT Procedure visit Department of Dermatology in [place], [place] [address] [place] [phone] Alejo Hilliard M.D. [address] [place] [phone] documented as of this encounter Visit Diagnoses Diagnosis Dysfunction Erectile documented in this encounter Additional Health Concerns Assessment Noted Time PHQ-9 Depression Total Score: 10 022 1:28 PM CDT documented as of this encounter Care Teams Director Of Retail Marketing Relationship Specialty Start Date End Date Elsewhere, Pcp PCP - General 12/05/21 documented as of this encounter
--- OUTSIDE RECORDS SUMMARY | 2024-01-07 12:56 | XMS_ITS ---
Author Organization [facility] Address [address] [place] [address] Care Team Providers Care Physician Support Coordinator Name Role Phone Unavailable Unavailable Unavailable Surgery Details Not on file Complications Check Surgery Details section. Procedure Estimated Blood Loss Check Surgery Details section. Procedure Findings Check Surgery Details section. Procedure Specimens Taken Check Surgery Details section.
--- OUTSIDE RECORDS SUMMARY | 2024-01-07 12:56 | XMS_ITS | Encounter Summary ---
Author Organization [facility] Address [address] [place] [address] Care Team Providers Care Auditor Internal Name Role Phone Elsewhere, Pcp Primary Care Provider Unavailabl e Encounter Details Date Type Department Care Team (Late st Contact Info) Description 10/02/2023 12:05 AM CDT Ancillary Procedure Department of Dermatology Social History [...] 11/08/2021 How often do you attend chur ch or anabaptism services? 1 to 4 times per year 11/08/2021 Do you belong to any clubs o r organizations such as voodoo groups, unions, fraternal or [...] Answer Date Recorded PHQ-2 Score 3 11/27/2021 [facility] of Occupat ional Health - Occupational Stress [...] money to buy more. Never true 02/18/20 23 Within the past 12 months, t he [...] your living situation today? I have a [employer] place to live 02/17/2023 Education Answer Date [...] CDT Comprehensive Visit Department of Dermatology in [place], [place] [address] [place] [phone] Paris Conroy APRN, C.N.P., D.N.P. [address] [place] [phone] 02/03/2024 8:30 AM CDT Procedure visit Department of Dermatology in [place], [place] [address] [place] [phone] Alejo Hilliard M.D. [address] [place] [phone] documented as of this encounter Procedures Procedure Name Priority Date/Time Associated Diagnosis Comments DERMATOLOGY IMAGE EXAM Routine 10/02/2023 12:05 AM CDT documented in this encounter Results * nose, right nasal tip 22 Biopsy-Dermatology Image Exam (10/02/2023 12:05 AM CDT) Narrative [facility] - 10/02/2023 3:00 PM CDT This order has been created and auto-finalized to support the import of images acquired without order. The clinical documentation to support these images can be found on the encounter that produced images. Provider Not In System IMG NON RAD IMAGI NG PROCEDURES [facility] NA documented in this encounter Visit Diagnoses Not on filedocumented in this encounter Additional Health Concerns Assessment Noted Time PHQ-9 Depression Total Score: 10 022 1:28 PM CDT documented as of this encounter Care Teams Auditor Internal Relationship Specialty Start Date End Date Elsewhere, Pcp PCP - General 12/05/21 documented as of this encounter
--- OUTSIDE RECORDS SUMMARY | 2024-01-07 12:56 | XMS_ITS | Encounter Summary ---
Author Organization [facility] Address [address] [place] [address] Care Team Providers Care Timber Supervisor Name Role Phone Elsewhere, Pcp Primary Care Provider Unavailabl e Encounter Details Date Type Department Care Team (Late st Contact Info) Description 10/02/2023 Ancillary Procedure Department of Dermatology Social History [...] week 11/08/2021 How often do you attend [facility] or holiness services? 1 to 4 times per year 11/08/2021 Do you belong to any clubs o r organizations such as restorationism groups, unions, fraternal or athletic groups, or [...] Answer Date Recorded PHQ-2 Score 3 11/27/2021 [facility] [place] [facility] of Occupat ional Health - [...] your living situation today? I have a [facility] place to live 02/17/2023 Education Answer [...] CDT Comprehensive Visit Department of Dermatology in [place], [place] [address] [place] [phone] Paris Conroy APRN, C.N.P., D.N.P. [address] [place] [phone] 02/03/2024 8:30 AM CDT Procedure visit Department of Dermatology in [place], [place] [address] [place] [phone] Alejo Hilliard M.D. [address] [place] [phone] documented as of this encounter Procedures Procedure Name Priority Date/Time Associated Diagnosis Comments DERMATOLOGY IMAGE EXAM Routine 10/02/2023 12:00 AM CDT documented in this encounter Results * scalp, right temporal 6 Biopsy-Dermatology Image Exam (10/02/2023 12:00 AM CDT) Narrative [facility] - 10/02/2023 2:59 PM CDT This order has been created [...] documented as of this encounter Care Teams Timber Supervisor Relationship Specialty Start Date End Date Elsewhere, Pcp PCP - General 12/05/21 documented as of this encounter
--- OUTSIDE RECORDS SUMMARY | 2024-01-07 12:56 | XMS_ITS | Referral Summary ---
Author Organization [facility] Address [address] [place] [address] Care Team Providers Care Spring Assembler Supervisor Name Role Phone Elsewhere, Pcp Primary Care Provider Unavailabl e Source Comments Patient records contain information from all sites at [facility]. For routine questions regarding patient records, call [phone] during business hours, M-F 8:00 AM - 5:00 PM Central Time. Record requests for emergency care only can be directed to [phone] at any time.[facility] Allergies Active Allergy Reactions Criticality Noted Date Comments Terbinafine Itching 10/31/2022 Medications Medication Sig Dispensed Refills Start Date End Date Status atorvastatin (LIPITOR) 40 mg tablet Take 1 tablet by mouth every evening. 09/05/2016 Active tamsulosin (FLOMAX) 0.4 mg 24 hr capsule Take 0.4 mg by mouth every evening. 09/05/2016 Active aspirin 81 mg chewable tablet Chew 81 mg daily. Ac tive losartan (COZAAR) 100 mg tablet Take 1 tablet (100 mg total) by mouth daily. 100 tablet 3 03/11/2022 Active hydroCHLOROthiazide (HYDRODIURIL) 25 mg tablet Take 1 tablet (25 mg total) by mouth daily. 90 tablet 3 06/17/2022 Active nitroglycerin (NITROSTAT) 0.[address] 1 tablet (0.4 mg total) under the tongue every 5 (five) minutes as needed for chest pain. 100 tablet 11 06/26/2022 Active traMADoL (ULTRAM) 50 mg tablet Take 50 mg by mouth as needed for pain. (Rarely) Active amLODIPine (NORVASC) 5 mg tablet TAKE ONE TABLET (5 MG) BY MOUTH AT BEDTIME. 20 tablet 02/09/2023 Active famotidine (PEPCID) 20 mg tablet Take 20 mg by mouth daily. 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 Chronic Kidney Disease (CKD) , Stage 3a Glomerular Filtration Rate (GFR) 45 To 59 12/02/2021 Nodule Prostate 11/13/2021 Ischemic Heart Chronic Disease 11/13/2021 Overview: 09/2005 Angiogram at [place] left main 20% left anterior descending 80% stent took it down to 40%; distal 20% circumflex 20% Lightheadedness 11/13/2021 Other Chest Pain 11/13/2021 Fatigue 11/13/2021 Coronary Artery Disease (Unspecified) 01/28/2016 Overview: Coronary Artery Disease (CAD) NOS Hypertension 01/28/2016 Overview: Hypertension (HTN) NOS Polyp Colon 05/05/2008 Overview: Next colonoscopy 2010 Rhinitis Chronic 07/21/2007 Hypertension NOS 10/18/2002 Coronary Artery Disease With Stable Angina 10/18 Hyperlipidemia On Treatment 10/18/2002 Resolved Problems Problem Noted Date Diagnosed Date Resolved Date Retention Urinary 12/08/2021 12/08/2021 Preoperative Examination Cardiovascular 11/13/2021 12/05/2021 Immunizations Name Administration Dates Next Due Influenza Split 04/29/2011,04/08/2006 PPSV23 04/08/2006 Social History Tobacco Use Types Packs/Day Years Used Date Smoking Tobacco: Former Smokeless Tobacco: Never Tobacco Cessation:Counseling Given: Not Answered Comments:Smoked a couple years but it was 60 years ago Alcohol [...] How often do you attend chur or anabaptism services? 1 to 4 times per year 11/08/2021 Do you belong to any clubs o r organizations such as orthodox groups, unions, fraternal or [...] [facility] [place] [facility] - Occupational Stress Questionnaire Answer Date Recorded [...] your living situation today? I have a [facility] place to live 02/17/2023 Education Answer Date Recorded What is the highest level of school you have completed or the highest degree you have received? 12th grade 11/08/2021 Sex and Gender Information Value Date Recorded Sex Assigned at Male 11/08/2021 12:12 PM CDT Gender Identity Male 11/08/2021 12:12 PM CDT Sexual Orientation Straight 11/08/2021 12 :12 PM CDT Last Filed Vital Signs Vital Sign Reading Time Taken Comments Blood Pressure 126/68 04/02/2023 10:53 AM CDT Pulse 51 04/02/2023 10:53 AM CDT Temperature 36.9 ??C (98.4 ??F) 10/31/2022 11:34 AM C DT Respiratory Rate 16 10/31/2022 4:20 PM CDT Oxygen Saturation 97% 10/31/2022 4:20 PM CDT Inhaled Oxygen Concentration - - Weight 90.9 kg (200 lb 6.4 oz) 04/02/2023 10:53 AM CDT Height 181.9 cm (5' 11.61) 04/02/2023 10:53 AM CDT Body Mass Index 27.47 04/02/2023 10:53 AM CDT Plan of Treatment Upcoming Encounters Date Type Department Care Team (Late st Contact Info) Description 01/12/2024 3:00 PM CDT Comprehensive Visit Department of Dermatology in [place], [place] [address] [place] [phone] Paris Conroy APRN, C.N.P., D.N.P. [address] [place] [phone] 02/03/2024 8:30 AM CDT Procedure visit Department of Dermatology in [place], [place] [address] [place] [phone] Alejo Hilliard M.D. [address] [place] [phone] Medical Devices Implanted Type Area Trading Specialist Device Identifier Shelf Expiration Date Model / Serial / Lot Cypher Stent 3.5 X 28 Rx - [id number] Implanted:Qty: 1 on 10/02/2005 Cardiac Stent Cordis Description:Device Manufactu rer - Cordis Joselito. Device Status Text - [id number]. Clp Hrzn Ti 6 Clp Andrae - [id number] Implanted:Qty: 4 on 12/03/2021 by Dario Wiggins M.D. at [facility] Hardware e.g. pins/screws /rods [employer] [id number] / / Clp Hrzn Ti 24 Clp Sm Red - [id number] Implanted:Qty: 1 on 12/03/2021 by Dario Wiggins M.D. at [facility] Hardware e.g. pins/screws /rods [employer] [id number] / / Clp Hrzn Ti 24 Clp Sm Red - [id number] Implanted:Qty: 1 on 12/03/2021 by Dario Wiggins M.D. at [facility] Hardware e.g. pins/screws /rods [employer] [id number] / / Clp Hrzn Ti 24 Clp Sm Red - [id number] Implanted:Qty: 1 on 12/03/2021 by Dario Wiggins M.D. at [facility] Hardware e.g. pins/screws /rods [employer] [id number] 08/26/2026 [id number] / / [id number] Clp Hrzn Ti 24 Clp Md Andrae - [id number] Implanted:Qty: 1 on 12/03/2021 by Dario Wiggins M.D. at [facility] Hardware e.g. pins/screws /rods [employer] [id number] 08/14/2026 [id number] / / [id number] Cbl Cls Zipfix Tss Strnl Ndl - [id number] Implanted:Qty: 1 on 12/03/2021 by Lance Hearn M.D. at [facility] Hardware e.g. pins/screws /rods Sternum [employer] Synthes 08.501.0 01.20S / / Cbl Cls Zipfix Tss Strnl Ndl - [id number] Implanted:Qty: 1 on 12/03/2021 by Lance Hearn M.D. at [facility] Hardware e.g. pins/screws /rods Sternum [employer] Synthes 08.501.0 01.20S / / Cbl Cls Zipfix Tss Strnl Ndl - [id number] Implanted:Qty: 1 on 12/03/2021 by Lacne Hearn M.D. at [facility] Hardware e.g. pins/screws /rods Sternum [employer] Synthes 08.501.0 .20S / / Procedures Procedure Name Priority Date/Time Associated Diagnosis Comments COMPREHENSIVE METABOLIC PANEL, S/P Routine 04/02/2023 6:57 AM CDT Bypass Coronary Artery Graft Status Post Atherosclerotic Heart Disease Of [place] Coronary Artery Without Angina Pectoris Chronic Kidney Disease (CKD), Stage 3a Glomerular Filtration Rate (GFR) 45 To 59 (HCC) Hyperlipidemia On Treatment Hypertension And Chronic Kidney Disease Stage 4 (HCC) from Last 3 Months or Most Recently Relevant to Health Maintenance Results * (ABNORMAL) Comprehensive Metabolic Panel (04/02/2023 6:57 AM CDT) Pathologist [facility] Potassium, S 4.1 3.6 - 5.2 mmol/L 04/02/2023 7:55 AM CDT DTL Sodium, S 139 135 - 145 mmol/L 04/02/2023 7:55 AM CDT DTL Chloride, S 102 98 - 107 mmol/L 04/02/2023 7:55 AM CDT DTL Bicarbonate, S 28 22 - 29 mmol/L 04/02/2023 7:55 AM CDT DTL Anion Gap 9 7 - 15 04/02/2023 7:55 AM CDT DTL BUN (Blood Urea Nitrogen), S 31(H) 8 - 24 mg/dL 04/02/2023 7:55 AM CDT DTL Creatinine 1.79(H) 0.74 - 1.35 mg/dL 04/02/2023 7:55 AM CDT DTL Estimated GFR (eGFR) 38(L) >=60 mL/min/BS A 04/02/2023 7:55 AM CDT DTL Comment: Estimated GFR calculated using the 2020 CKD_EPI creatinine equation. Calcium, Total, S 9.3 8.8 - 10.2 mg/dL 04/02/2023 7:55 AM CDT DTL Glucose, S 80 70 - 140 mg/dL 04/02/2023 7:55 AM CDT DTL Protein, Total, S 6.1(L) 6.3 - 7.9 g/dL 04/02/2023 7:55 AM CDT DTL Albumin, S 4.2 3.5 - 5.0 g/dL 04/02/2023 7:55 AM CDT DTL Aspartate Aminotransferase (AST), S 22 8 - 48 U/L 04/02/2023 7:55 AM CDT DTL Alkaline Phosphatase, S 70 40 - 129 U/L 04/02/2023 7:55 AM CDT DTL Alanine Aminotransferase (ALT), S 21 7 - 55 U/L 04/02/2023 7:55 AM CDT DTL Bilirubin, Total, S 0.6 0.0 - 1.2 mg/dL 04/02/2023 7:55 AM CDT DTL Blood (Blood, Venous) 04/02/2023 6:57 AM CDT 04/02/2023 7:33 AM CDT Renee Drummond M.D. LAB BLOOD ADD-ON [facility] [address] [place] [address], [facility] [address] [place] [address] from Last 3 Months or Most Recently Relevant to Health Maintenance Advance Directives For more information, please contact: [phone] * Full Code (Latest Code Status on File) Date Activated Date Inactivated Comments 12/03/2021 3:24 PM 12/08/2021 2:05 PM Question Answer Comments Full Code: Discussed * Full Code Date Activated Date Inactivated Comments 12/03/2021 7:03 AM 12/03/2021 3:24 PM Question Answer Comments Full Code: Discussed Care Teams Spring Assembler Supervisor Relationship Specialty Start Date End Date Elsewhere, Pcp PCP - General 12/05/21
--- OUTSIDE RECORDS SUMMARY | 2024-01-07 12:56 | XMS_ITS | Encounter Summary ---
Author Organization [facility] Address [address] [place] [address] Care Team Providers Care Concrete Sculptor Name Role Phone Elsewhere, Pcp Primary Care Provider Unavailabl e Reason for Referral * Outpatient (Routine) - Authorized Specialty Diagnoses / Procedures Referred By Contfuad ibrahim Referred To Contact Dermatology Diagnoses Basal Cell Carcinoma Skin Other Parts Face Procedures ZAYNAB MOHS 1-4 sites Michell Pacheco M.D. [address] [place] [address] [facility] Referral ID Status Reason Start Date Expiration Date V isits Requested Visits Authorized [id number] Authorized 10/07/2023 10/06/2024 1 1 Encounter Details Date Type Department Care Team (Late st Contact Info) Description 10/07/2023 Orders Only Department of Dermatology in [place], [place] [address] [place] [phone] Dudley Farfan M.D. Basal Cell Carcinoma Skin Other Parts Face (Primary Dx) Social History Tobacco Use Types Packs/Day Years [...] often do you attend chur ch or congregation services? 1 to 4 times per year 11/08/2021 Do you belong to any clubs o r organizations such as muslim groups, unions, fraternal or [...] Answer Date Recorded PHQ-2 Score 3 11/27/2021 [facility] Occupat ional Health - [...] your living situation today? I have a [facility] place to live 02/17/2023 Education Answer [...] CDT Comprehensive Visit Department of Dermatology in [place], [place] [address] [place] [address] Paris Conroy APRN, C.N.P., D.N.P. [address] [place] [address] 02/03/2024 8:30 AM CDT Procedure visit Department of Dermatology in [place], [place] [address] [place] [address] Alejo Hilliard M.D. [address] [place] [address] Scheduled Orders Name Type Priority Associated Diagnoses Orde r Schedule ZAYNAB MOHS 1-4 sites Dermatology Routine Basal Cell Carcinoma Skin Other Parts Face Expected: 10/07/2023, Expires: 01/05/2025 documented as of this encounter Visit Diagnoses Diagnosis Basal Cell Carcinoma Skin Other Parts Face- Primary documented in this encounter Additional Health Concerns Assessment Noted Time PHQ-9 Depression Total Score: 10 022 1:28 PM CDT documented as of this encounter Care Teams Concrete Sculptor Relationship Specialty Start Date End Date Elsewhere, Pcp PCP - General 12/05/21 documented as of this encounter
--- OUTSIDE RECORDS SUMMARY | 2024-01-07 12:56 | XMS_ITS | Encounter Summary ---
Author Organization [facility] Address [address] [place] [address] Care Team Providers Care Paint Laboratory Technician Name Role Phone Elsewhere, Pcp Primary Care Provider Unavailabl e Reason for Referral * Outpatient (Routine) - Authorized Specialty Diagnoses / Procedures Referred By Star ibrahim Referred To Contact Diagnoses Swelling Scrotum Procedures US Scrotum Silvio Medel M.D. [address] [place] [phone] [facility] Referral ID Status Reason Start Date Expiration Date V isits Requested Visits Authorized [id number] Authorized 10/07/2023 10/06/2024 1 1 Encounter Details Date Type Department Care Team (Late st Contact Info) Description 10/07/2023 Orders Only Department of Urology in [place], [place] [address] [place] [phone] Silvio Medel M.D. [address] [place] [phone] Swelling Scrotum (Primary Dx) Social History Tobacco Use Types [...] often do you attend chur ch or orthodoxy services? 1 to 4 times per year 11/08/2021 Do you belong to any clubs o r organizations such as latter-day groups, unions, fraternal or [...] Answer Date Recorded PHQ-2 Score 3 11/27/2021 [facility] of Occupat ional Health - Occupational Stress [...] your living situation today? I have a [facility] place to live 02/17/2023 Education Answer [...] CDT Comprehensive Visit Department of Dermatology in [place], [place] [address] [place] [address] Paris Conroy APRN, C.N.P., D.N.P. [address] [place] [address] 02/03/2024 8:30 AM CDT Procedure visit Department of Dermatology in [place], [place] [address] [place] [address] Alejo Hilliard M.D. [address] [place] [phone] Scheduled Orders Name Type Priority Associated Diagnoses Orde r Schedule US Scrotum Imaging RAD - Routine (m ost inpatients and all outpatients) Swelling Scrotum 1 Occurrences starting 10/07/2023 until 01/05/2025 documented as of this encounter Visit Diagnoses Diagnosis Swelling Scrotum- Primary documented in this encounter Additional Health Concerns Assessment Noted Time PHQ-9 Depression Total Score: 10 022 1:28 PM CDT documented as of this encounter Care Teams Paint Laboratory Technician Relationship Specialty Start Date End Date Elsewhere, Pcp PCP - General 12/05/21 documented as of this encounter
--- OUTSIDE RECORDS SUMMARY | 2024-01-07 12:56 | XMS_ITS | Encounter Summary ---
Author Organization [facility] Address [address] [place] [address] Care Team Providers Care Cloud Security Architect Name Role Phone Elsewhere, Pcp Primary Care Provider Unavailabl e Reason for Visit * Reason Onset Date Comments Pre-visit Testing Orders 09/17/2023 Prior t o consult Encounter Details Date Type Department Care Team (Latest Contact Info) Description 09/17/2023 Clinical Communication Department of Urology in [place], [place] [address] [place] [address] Silvio Medel M.D. [address] [place] [phone] Pre-visit Testing Orders (Prior to consult) Social History Tobacco Use Types Packs/Day Years [...] How often do you attend chur or episcopal services? 1 to 4 times per year 11/08/2021 Do you belong to any clubs o r organizations such as restoration groups, unions, fraternal or athletic groups, or [...] PHQ-2 Score 3 11/27/2021 [facility] of Occupat ional Health - Occupational [...] your living situation today? I have a [facility] place to live 02/17/2023 Education Answer [...] CDT Comprehensive Visit Department of Dermatology in [place], [place] [address] [place] [address] Paris Conroy APRN, C.N.P., D.N.P. [address] [place] [address] 02/03/2024 8:30 AM CDT Procedure visit Department of Dermatology in [place], [place] [address] [place] [address] Alejo Hilliard M.D. [address] [place] [phone] documented as of this encounter Results * (ABNORMAL) Testosterone, Total and Free (10/02/2023 10:00 AM CDT) Testosterone, Free, S 11.4(H) 3.08 - 11.3 ng/dL 10/08/2023 2:[address] [facility] Comment: ----ADDITIONAL INFORMATION---- This test was developed and its performance characteristics determined by [facility] in a manner consistent with CLIA requirements. This test has not been cleared or approved by the U.S. Food and Drug Administration. Testosterone, Total by Mass Spectrometry, Serum 707 240 - 950 ng/dL 10/07/2023 1:[address] [facility] Comment: ----ADDITIONAL INFORMATION---- Testing performed by Liquid Chromatography-Tandem Mass Spectrometry (LC-MS/MS). This test was developed and its performance characteristics determined by [facility] in a manner consistent with CLIA requirements. This test has not been cleared or approved by the U.S. Food and Drug Administration. Blood (Blood, Venous) 10/02/2023 10:00 AM CDT 10/02/2023 1:09 PM CDT Silvio Medel M.D. LAB BLOOD NON ADD-ON [facility] [address] [place] [address] [facility] [address] [place] [address] [address] * Lipid Panel (10/02/2023 10:00 AM CDT) Triglycerides 57 mg/dL 10/02/2023 10:52 AM CDT DTL Comment: ----REFERENCE VALUE---- Normal: <150 mg/dL Borderline High: 150-199 mg/dL High: 200-499 mg/dL Very High: > or =500 mg/dL Cholesterol, Total 154 mg/dL 2023 10:52 AM CDT DTL Comment: ----REFERENCE VALUE---- Desirable: < 200 [...] Silvio Medel M.D. LAB BLOOD ADD- ON [facility] [address] [place] [address], [facility] [address] [place] [address] documented in this encounter Visit Diagnoses Diagnosis Dysfunction Erectile- Primary documented in this encounter Additional Health Concerns Assessment Noted Time PHQ-9 Depression Total Score: 10 022 1:28 PM CDT documented as of this encounter Care Teams Cloud Security Architect Relationship Specialty Start Date End Date Elsewhere, Pcp PCP - General 12/05/21 documented as of this encounter
--- OUTSIDE RECORDS SUMMARY | 2024-01-07 12:56 | XMS_ITS | Clinical Summary ---
Author Organization [facility] Address [address] [place] [address] Care Team Providers Care Traffic Manager Name Role Phone Elsewhere, Pcp Primary Care Provider Unavailabl e Source Comments Patient records contain information from all sites at [facility]. For routine questions regarding patient records, call [phone] during business hours, M-F 8:00 AM - 5:00 PM Central Time. 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 1 to 4 times per year 11/08/2021 Do you belong to any clubs o r organizations such as mosque groups, unions, fraternal or athletic groups, or [...] Answer Date Recorded PHQ-2 Score 3 11/27/2021 [facility] - Occupational Stress Questionnaire Answer Date Recorded [...] your living situation today? I have a [facility] place to live 02/17/2023 Education Answer Date [...] CDT Comprehensive Visit Department of Dermatology in [place], [place] [address] [place] [phone] Paris Conroy APRN, C.N.P., D.N.P. [address] [place] [phone] 02/03/2024 8:30 AM CDT Procedure visit Department of Dermatology in [place], [place] [address] [place] [phone] Alejo Hilliard M.D. [address] [place] [phone] Health Maintenance Due Date Last Done Comments DTaP,Tdap,and Td Vaccines (2 - Td or Tdap) 03/28/2023 03/28/2013, 03/11/2013, 07/21/2007 Depression Screening (Annual PHQ-2) 06/29/2023 Fall Risk Screen (Annual) 06/29/2023 COVID-19 Vaccine (2 4 season) 2023 04/20/2023, 05/08/2022, 11/14/2021, Additional history exists Influenza Vaccine (#1) 2024 , 04/03/2022, 04/10/2021, Additional history exists Creatinine Level (Kidney Fun ction Test) 04/02/2024 04/02/2023, 10/31/2022, 08/06/2022, Additional history exists Office Visit for Blood Press ure Check / Re-check 04/02/2024 04/02/2023 Potassium Level 04/02/2024 04/02/2023, 05/0 10/2022, 08/06/2022, Additional history exists Sodium Level 04/02/2024 04/02/2023, 05/0 10/2022, 08/06/2022, Additional history exists Colonoscopy Discontinued 02/27/2011 (Perf ormed elsewhere) Colorectal Cancer Surveillance Discontinued Pneumococcal vaccine (65+ years) Completed 02/08/2020, 01/25/2015, 04/08/2006, Additional history exists Zoster Vaccines Completed 02/08/2020, 01/2020, 05/19/2007 CT Colonography Discontinued Cologuard Discontinued Medical Devices Implanted Type Area Automotive Lot Attendant Device Identifier Shelf Expiration Date Model / Serial / Lot Cypher Stent 3.5 X 28 Rx - [id number] Implanted:Qty: 1 on 10/02/2005 Cardiac Stent Cordis Description:Device Manufactu rer - Cordis Joselito. Device Status Text - [id number]. Clp Hrzn Ti 6 Clp Andrae - [id number] Implanted:Qty: 4 on 12/03/2021 by Dario Wiggins M.D. at [facility] Hardware e.g. pins/screws /rods [employer] [id number] / / Clp Hrzn Ti 24 Clp Sm Red - [id number] Implanted:Qty: 1 on 12/03/2021 by Dario Wiggins M.D. at [facility] Hardware e.g. pins/screws /rods [employer] [id number] / / Clp Hrzn Ti 24 Clp Sm Red - [id number] Implanted:Qty: 1 on 12/03/2021 by Dario Wiggins M.D. at [facility] Hardware e.g. pins/screws /rods [employer] [id number] / / Clp Hrzn Ti 24 Clp Sm Red - [id number] Implanted:Qty: 1 on 12/03/2021 by Dario Wiggins M.D. at [facility] Hardware e.g. pins/screws /rods [employer] [id number] 08/26/2026 [id number] / / [id number] Clp Hrzn Ti 24 Clp Md Andrae - [id number] Implanted:Qty: 1 on 12/03/2021 by Dario Wiggins M.D. at [facility] Hardware e.g. pins/screws /rods [employer] [id number] 08/14/2026 [id number] / / [id number] Cbl Cls Zipfix Tss Strnl Ndl - [id number] Implanted:Qty: 1 on 12/03/2021 by Lance Hearn M.D. at [facility] Hardware e.g. pins/screws /rods Sternum [employer] Synthes 08.501.0 01.20S / / Cbl Cls Zipfix Tss Strnl Ndl - [id number] Implanted:Qty: 1 on 12/03/2021 by Lance Hearn M.D. at [facility] Hardware e.g. pins/screws /rods Sternum [employer] Synthes 08.501.0 01.20S / / Cbl Cls Zipfix Tss Strnl Ndl - [id number] Implanted:Qty: 1 on 12/03/2021 by Lance Hearn M.D. at [facility] Hardware e.g. pins/screws /rods Sternum [employer] Synthes 08.501.0 01.20S / / Procedures Procedure Name Priority Date/Time Associated Diagnosis Comments COMPREHENSIVE METABOLIC PANEL, S/P Routine 04/02/2023 6:57 AM CDT Bypass Coronary Artery Graft Status Post Atherosclerotic Heart Disease Of [place] Coronary Artery Without Angina Pectoris Chronic Kidney Disease (CKD), Stage 3a Glomerular Filtration Rate (GFR) 45 To 59 (HCC) Hyperlipidemia On Treatment Hypertension And Chronic Kidney Disease Stage 4 (HCC) from Last 3 Months or Most Recently Relevant to Health Maintenance Results * (ABNORMAL) Comprehensive Metabolic Panel (04/02/2023 6:57 AM CDT) Potassium, S 4.1 3.6 - 5.2 mmol/L [...] CDT Renee Drummond M.D. LAB BLOOD ADD-ON [facility] [address] [place] [address], [place] DTL [facility] [address] [place] [address] from Last 3 Months or Most Recently Relevant to Health Maintenance Advance Directives For more information, please contact: [phone] * Full Code (Latest Code Status on File) Date Activated Date Inactivated Comments 12/03/2021 3:24 PM 12/08/2021 2:05 PM Question Answer Comments Full Code: Discussed * Full Code Date Activated Date Inactivated Comments 12/03/2021 7:03 AM 12/03/2021 3:24 PM Question Answer Comments Full Code: Discussed Care Teams Traffic Manager Relationship Specialty Start Date End Date Elsewhere, Pcp PCP - General 12/05/21
--- OUTSIDE RECORDS SUMMARY | 2024-01-07 12:56 | XMS_ITS | Encounter Summary ---
Author Organization [facility] Address [address] [place] [id number] Care Team Providers Care Psychology Technician Name Role Phone Elsewhere, Pcp Primary Care Provider Unavailabl e Reason for Referral * Outpatient (Routine) - Authorized Specialty Diagnoses / Procedures Referred By Star ibrahim Referred To Contact Dermatology Diagnoses Cancer Skin Basal Cell Personal History Shannon Brice M.B.B.S., M.D. [address] [place] [phone] [facility] Referral ID Status Reason Start Date Expiration Date V isits Requested Visits Authorized [id number] Authorized 10/02/2023 04/02/2025 1 1 Reason for Visit * Appointment Request (Routine) - Closed Specialty Diagnoses / Procedures Referred By Star ibrahim Referred To Contact Dermatology Diagnoses Screening Examination Skin Cancer Referral ID Status Reason Start Date Expiration Date Visits Re quested Visits Authorized [id number] Closed 08/05/2023 08/04/2024 1 1 Encounter Details Date Type Department Care Team ([facility] st Contact Info) Description 10/02/2023 11:00 AM CDT Office Visit Department of Dermatology in [place], [place] [address] [place] [phone] Dudley Farfan M.D. Cancer Skin Basal Cell Personal History (Primary Dx); Tumor Skin Uncertain Behavior; Keratosis Actinic; Dermatoheliosis; Nevi Multiple; Keratosis Seborrheic; Angioma Glover Discharge Disposition: Home or Self Care Social [...] often do you attend chur ch or moravian services? 1 to 4 times per year 11/08/2021 Do you belong to any clubs o r organizations such as caodaism groups, unions, fraternal or athletic groups, or [...] Answer Date Recorded PHQ-2 Score 3 11/27/2021 [facility] - Occupational [...] documented as of this encounter Progress Notes * Dduley Farfan M.D. - 10/02/2023 11:00 AM CDT Correspondence to Dudley Farfan M.D. The patient was seen and discussed with supervising communication consultant, Dr. Shannon Manley, who agrees with the assessment and plan. CHIEF COMPLAINT / REASON FOR VISIT Skin check, history of nonmelanoma skin cancer HISTORY OF PRESENT ILLNESS Mr. Angel Doran is a 77 y.o. male who presents today for a skin cancer screening examination. Mr. Angel Doran's dermatologic history is notable for basal cell carcinoma. His last visit with our department was with Dr. Carpio on 03/30/2023 at which point he had a consult regarding treatment of a basal cell carcinoma involving the right nasal tip. It sounds like the patient planned to undergo Mohs surgery for this after the consult and this is what was recommended, butas far as I can tell this did not occur. Today, he brings a list of concerns with him: - he has some spots on the bilateral temples that he states get red and scaly at times. - he has his nose listed as a concern from the previous basal cell carcinoma mentioned above. He states he was nearly 78 years old and does not see why he should get this treated. He also wonders about superficial radiation therapy as he saw an ad for this on TV. - he has some scaly spots on the back of his hand - I noticed a blue spot on the right evangelical. He states this has been here for about 3 weeks. 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 Findings in the above examined areas were normal with the exception of the following exam descriptions below: -- Saleh type 2 skin with moderate dermatoheliosis in a photo-distributed pattern -- multiple round and regular brown macules and papules on the trunk and extremities (banal-appearing nevi) -- multiple erythematous gritty papules involving the scalp, bilateral temples, bilateral dorsal hands (actinic keratosis) -- involving the right nasal tip/ala there is a well-healed shave biopsy scar. In the very anterioraspect of this scar there is some increased vasculature and pinkness possibly consistent with residual basal cell carcinoma -- involving the right evangelical there is an approximately 3 mm blue papule which appears uniform on dermoscopy. I was unable to hortencia this papule with dermoscopy. -- multiple brown to skin-colored, waxy, stuck-on papules on the trunk and extremities (seborrheic keratoses) -- multiple glover papules on the trunk (glover angiomas) -- multiple brown macules on sun exposed skin (solar lentigines) ASSESSMENT / PLAN #1 History of nonmelanoma skin cancer #2 Skin cancer screening examination #3 Dermatoheliosis We discussed that because of the patient's history of nonmelanoma skin cancer, they are at increased risk of developing additional nonmelanoma skin cancers. Sun protection and sun avoidance were reviewed with the patient. Educational materials were provided regarding skin self-examination, the warning signs and symptoms of skin cancer, and the proper use of sunscreens. I recommend regular use of sun-protective clothing and [id number] broad-spectrum sunscreen with SPF 30 or higher. #4 Basal cell carcinoma of the right nasal tip biopsied 11/13/2021 without definitive treat We had a long and thorough discussion regarding this lesion. I let him know that I had some concernthere was some clinically residual basal cell carcinoma and the biopsy margins were involved, so there likely is some residual basal cell carcinoma though it has been 2 years since his biopsy. We discussed that Mohs micrographic surgery has the best cure rate and the least amount of risk of other complications compared to other treatments such as superficial radiation therapy which we typically reserved for patients who are not candidates for Mohs surgery due to comorbidities, advanced age, or other reasons. In his case, he repeatedly brings up his age as a concern. He actually seems quite healthy and as far as I can tell he could potentially live a couple more decades, though nobody can say this for certain. We discussed all of this frankly and that it would be very inadvisable to ignorebasal cell carcinoma for this long as it will continue to grow and may eventually erode large partsof the face and nose if ignored. Despite all of this, he remains reluctant to proceed with surgery and treatment. We also offered to perform a shave biopsy today to rule out any residual basal cell carcinoma, but he also declined this. Per his preference, we will continue to clinically monitor thisarea. #5 Skin tumor of uncertain behavior, right evangelical Differential DX: Angioma, blue nevus, rule out melanoma I explained the patient that I would like to acquire a biopsy of this/these lesion(s)/rash for evaluation by our dermatopathologists. The patient expressed understanding and agreement with this plan. Photographs obtained. Punch biopsy performed. PROCEDURAL PAUSE Prior to the procedure, final verification of the patient identity and correct marked surgical sitewas performed. PUNCH BIOPSY PROCEDURE The anesthesia used was 1% lidocaine with epinephrine 1:100,000. The skin was prepped in a sterile fashion with alcohol. The specimen was excised in a circular fashion through the full thickness of the dermis into the fat using a 4-mm disposable punch. The skin was approximated with 2 5 0 nylon sutures, to be removed in approximately 7 days. Blood loss: Minimal. Complications: None. Wound care: Routine. The specimen(s) were/was sent to Dermatopathology. The report and recommendations will be communicated to the patient. #6 Banal-appearing nevi None of the patient's nevi reach the clinical threshold for biopsy. I recommend continued sun protection, self-skin examinations, and observation. Should any of the patient's nevi change in size, color, texture, or shape or develop symptoms such as itching or bleeding, I recommend an immediate return visit for reassessment. #7 Actinic keratoses times 8 (vertex scalp, bilateral dorsal hands, bilateral temples) Given the precancerous nature of this lesion(s), treatment is medically indicated. After discussionof the risks, benefits and alternatives to treatment with cryotherapy, informed consent was obtained. We treated a total of 8 lesion(s) with one 20-second freeze-thaw cycles of liquid nitrogen cryotherapy. The patient tolerated the procedure well. Aftercare instructions were provided in written andverbal form to the patient. Should any of these lesions recur, the patient should return for biopsyor further evaluation. Discussed the risks, benefits, alternatives, and the necessity of other members of the healthcare team participating in the procedure. All questions answered and consent given. #8 Seborrheic keratoses #9 Glover angiomas #10 Solar lentigines The benign nature of the skin lesion(s) was discussed with the patient. No treatment is required. Irecommend continued observation. Should symptoms or changes develop related to this condition, I would recommend a return visit for reassessment. Associated attestation - Shannon Brice M.B.B.S., M.D. - 10/02/2023 1:19 PM CDT I saw and evaluated the patient, participating in the gama portions of the service. I reviewed the resident???s note. I agree with the resident???s findings and plan. I was present for the gama/critical portion and immediately available for the entire procedure. documented in this encounter Miscellaneous Notes * Result Encounter Note - Dudley Farfan M.D. - 10/07/2023 12:37 PM CDT BCC, needs Mohs. I called the patient already and advised this and placed an order for Mohs. He also has an untreated basal cell carcinoma from the right nasal tip that I again recommended Mohs surgery for at his most recent clinic visit. He was leaning against getting this treated, but I encouraged him to discuss this further with the surgeons on the day of surgery. documented in this encounter Plan of Treatment Upcoming Encounters Date Type Department Care Team (Late st Contact Info) Description 01/12/2024 3:00 PM CDT Comprehensive Visit Department of Dermatology in [place], [place] [address] [place] [address] Paris Conroy APRN, C.N.P., D.N.P. [address] [place] [phone] 02/03/2024 8:30 AM CDT Procedure visit Department of Dermatology in [place], [place] [address] [place] [address] Alejo Hilliard M.D. [address] [place] [phone] Scheduled Referrals Name Type Priority Associated Diagnoses Order Schedule Dermatology office visit (clinic) Outpatient Referral Routine Cancer Skin Basal Cell Personal History Expected: 10/01/2024 (Approximate), Expires: 12/31/2024 documented as of this encounter Procedures Procedure Name Priority Date/Time Associated Diagnosis Comments DERMATOPATHOLOGY Routine 10/02/2023 11:3 4 AM CDT Tumor Skin Uncertain Behavior documented in this encounter Results * Dermatopathology (10/02/2023 11:34 AM CDT) 10/07/2023 12:21 PM CDT PDRDeja Participated in the Interpretation Too Torre M.D. - Dermatopathology Fellow 10/07/2023 12:21 PM CDT PDRM Report electronically signed by Ju Mcbride M.D. 10/07/2023 12:21 PM CDT PDRM Gross Description Received in formalin labeled with the patient's name, medical record number, and right evangelical is a 0.4 cm in diameter byrd skin punchbiopsy excised to a depth of 0.3 cm. There is a 0.3 x 0.3 cm red-purple, pigmented lesion with irregular borders eccentrically located onthe skin surface. The specimen is bisected to reveal a 0.2 x 0.1 cm dark red erythematous and is submitted entirely in cassette A1.Grossed by NEHEMIAS 10/07/2023 12:21 PM CDT PDRM Interpretation FINAL DIAGNOSIS A. ??Right Gnosticist, Skin punch biopsy: ??Nodular basal cell carcinoma, involving biopsy borders Digital imaging was used in the diagnostic assessment of this case. 10/07/2023 12:21 PM CDT PDRM Skin (Right Gnosticist) 10/02/2023 11:34 AM CDT Dudley Farfan M.D. LAB PATH DERM OR DERABLES Performing Organization Address City/State/[facility] Co de Phone Number [facility] [address] [place] [address], [facility] PDRM [address] [facility] [address] [place] [address] documented in this encounter Visit Diagnoses Diagnosis Cancer Skin Basal Cell Personal History- Primary Tumor Skin Uncertain Behavior Keratosis Actinic Dermatoheliosis Nevi Multiple Keratosis Seborrheic Angioma Glover documented in this encounter Additional Health Concerns Assessment Noted Time PHQ-9 Depression Total Score: 10 022 1:28 PM CDT documented as of this encounter Care Teams Psychology Technician Relationship Specialty Start Date End Date Elsewhere, Pcp PCP - General 12/05/21 documented as of this encounter
--- OUTSIDE RECORDS SUMMARY | 2024-01-07 12:56 | XMS_ITS | Encounter Summary ---
Author Organization [facility] Address [address] [place] [address] Care Team Providers Care Data Abstractor Name Role Phone Elsewhere, Pcp Primary Care Provider Unavailabl e Reason for Visit * Reason Onset Date Comments Pre-visit Intake 10/05/2023 Encounter Details Date Type Department Care Team (Latest Contact Info) Description 10/05/2023 3:00 PM CDT Clinical Communication Virtual Review in [place], [place] 200 [place] [phone] Pre-visit Intake Social History Tobacco Use Types Packs/Day Years [...] How often do you attend chur or rastafarian services? 1 to 4 times per year 11/08/2021 Do you belong to any clubs o r organizations such as anabaptism groups, unions, fraternal or [...] Answer Date Recorded PHQ-2 Score 3 11/27/2021 [facility]at ional [facility] [...] your living situation today? I have a [facility] place to live 02/17/2023 Education Answer [...] CDT Comprehensive Visit Department of Dermatology in [place], [place] [address] [place] [address] Paris Conroy APRN, C.N.P., D.N.P. [address] [place] [address] 02/03/2024 8:30 AM CDT Procedure visit Department of Dermatology in [place], [place] [address] [place] [address] Alejo Hilliard M.D. 200 [place] [phone] documented as of this encounter Visit Diagnoses Not on filedocumented in this encounter Additional Health Concerns Assessment Noted Time PHQ-9 Depression Total Score: 10 022 1:28 PM CDT documented as of this encounter Care Teams Data Abstractor Relationship Specialty Start Date End Date Elsewhere, Pcp PCP - General 12/05/21 documented as of this encounter
--- OUTSIDE RECORDS SUMMARY | 2024-01-07 12:57 | XMS_ITS | Encounter Summary ---
Author Organization [facility] Address [address] [place] [id number] Care Team Providers Care Preanalytics Team Lead Name Role Phone Elsewhere, Pcp Primary Care Provider Unavailabl e Reason for Visit * Reason Onset Date Comments Follow-up Orders 09/17/2023 Encounter Details Date Type Department Care Team (Latest Contact Info) Description 09/17/2023 Clinical Communication Department of Urology in [place], [place] [address] [place] [address] Suzette Arias P.A.-C. [address] [place] [phone] Follow-up Orders Social History Tobacco Use Types Packs/Day Years [...] often do you attend chur ch or rastafari services? 1 to 4 times per year 11/08/2021 Do you belong to any clubs o r organizations such as faith groups, unions, fraternal or [...] Answer Date Recorded PHQ-2 Score 3 11/27/2021 [facility] Questionnaire Answer Date [...] your living situation today? I have a [facility] place to live 02/17/2023 Education Answer [...] CDT Comprehensive Visit Department of Dermatology in [place], [place] [address] [place] [phone] Paris Conroy APRN, C.N.P., D.N.P. [address] [place] [phone] 02/03/2024 8:30 AM CDT Procedure visit Department of Dermatology in [place], [place] 200 [place] [address] Alejo Hilliard M.D. [address] [place] [address] documented as of this encounter Visit Diagnoses Not on filedocumented in this encounter Additional Health Concerns Assessment Noted Time PHQ-9 Depression Total Score: 10 022 1:28 PM CDT documented as of this encounter Care Teams Preanalytics Team Lead Relationship Specialty Start Date End Date Elsewhere, Pcp PCP - General 12/05/21 documented as of this encounter
--- OUTSIDE RECORDS SUMMARY | 2024-01-07 12:57 | XMS_ITS | Clinical Summary ---
Author Organization [facility] Address [place], [place] [address] Care Team Providers Care Machine Stripper Cutter Name Role Phone Franc Arenas MD Primary Care Provider Allergies No known active allergies Medications Medication Sig Dispensed Refills Start Date End Date Status ASPIRIN 325 MG TABIndications:Chron ic ischemic heart disease, unspecified,Chronic ischemic heart disease, unspecified take 1 tablet (325mg) daily 100 0 05/05/2008 Active traMADol (ULTRAM) 50 mg tablet TAKE ONE TABLET BY MOUTH ONCE DAILY NEEDED 30 tablet 0 05/02/2011 Active nitroglycerin (NITROSTAT) 0.4 mg SL tabletIndications:Ch ronic ischemic heart disease, unspecified Place 1 tablet under the tongue every 5 minutes if needed for Chest Pain. 25 tablet 0 05/26/2011 Active omeprazole (PRILOSEC) 20 mg Delayed-Release capsule Take 1 capsule by mouth once daily before a meal. 0 02/07/2015 Active atorvastatin (LIPITOR) 40 mg tablet Take 1 tablet by mouth once daily. 0 02/07/2015 Active doxazosin (CARDURA) 4 mg tabletIndications:Un specified essential hypertension,Hypertr ophy of prostate without urinary obstruction and other lower urinary tract symptoms (LUTS) Takes 4 mg in [place] none in Am 135 tablet 1 02/07/2015 Active cholecalciferol (VITAMIN D-3) 2,000 unit capsule Take 1 capsule by mouth once daily. 0 02/07/2015 Active metoprolol tartrate (LOPRESSOR) 25 mg tablet Take 1 tablet by mouth once daily. 0 02/07/2015 Active losartan (COZAAR) 100 mg tablet Take 1 tablet by mouth once daily. 0 02/07/2015 Active Cholecalciferol, Vitamin D3, 2,000 unit tablet Take 1 tablet by mouth. 06/09/2011 Active triamcinolone (ARISTOCORT; KENALOG) 0.1 % cream Apply topically to affected area(s). 09/05/2016 Active tadalafil (CIALIS) 10 mg tablet As Needed 03/04/2018 Active tamsulosin (FLOMAX) 0.4 mg capsule Take 0.4 mg by mouth. 2 07/21/2018 Active tadalafil (CIALIS;ADCIRCA) 20 mg tabletIndications:Er ectile dysfunction, unspecified erectile dysfunction type Take 1 tablet by mouth once daily if needed for Erectile Dysfunction. Take 30 minutes before sexual activity. 8 tablet 11 07/26/2018 Active sildenafil citrate (VIAGRA) 100 mg tabletIndications:Er ectile dysfunction, unspecified erectile dysfunction type Take 1 tablet by mouth once daily if needed for Erectile Dysfunction. Take 30min to 4 hours before sexual activity. Max 100mg/24hr. 8 tablet 11 07/26/2018 Active Active Problems Problem Noted Date Diagnosed Date Colon polyps 05/05/2008 Overview: Next colonoscopy 2010 Chronic rhinitis 07/21/2007 Unspecified essential hypertension Chronic ischemic heart disease, unspecified Overview: 09/2005 Angiogram at [place] left main 20% left anterior descending 80% stent took it down to 40%; distal 20% circumflex 20% Other and unspecified hyperlipidemia Hypertrophy of prostate with out urinary obstruction and other lower urinary tract symptoms (LUTS) Resolved Problems Problem Noted Date Diagnosed Date Resolved Date Retinal detachment 01/30/2009 9 Overview: Repaired in 2008. Ronald Solorio MD signed electronically .................... 05/15/2009 Preop exam for internal medicine 01/30/2009 05/07/2009 Immunizations Name Administration Dates Next Due AMB Influenza, IIV3 (Age >=3 years)(Flu Clinic Only) 04/20/2008 Influenza, IIV3 (Age >=3 years) 05/01/2010,04/28,04/08/2006 Pneumococcal Poly,23-Valent (Pneumovax) 04/08/20 06,01/24/1998 Td (Age >=7 Years) 02/10/1997 Td, Preservative Free (age >= 7 Years) 8 Zoster (Zostavax-ZVL, live) 05/19/2007 Family History Medical History Relation Name Comments Hypertension Father Cancer Maternal Grandfather Arthritis Mother Rheumatoid Stroke Mother lots of TIA Diabetes Paternal Grandmother Relation Name Status Comments Father Maternal Grandfather Mother Paternal Grandmother Social History Tobacco Use Types Packs/Day Years Used Date Smoking Tobacco: Never Smokeless Tobacco: Never Tobacco Cessation:Counseling Given: Yes Alcohol Use Standard Drinks/Week Comments Yes 5 (1 standard drink = 0.6 oz pur e alcohol) social drinks 1 day /week Sex and Gender Information Value Date Recorded Sex Assigned at Not on file Gender Identity Not on file Sexual Orientation Not on file Obstetrics History Last Filed Vital Signs Vital Sign Reading Time Taken Comments Blood Pressure 138/70 12/24/2021 2:00 PM CDT Pulse 78 12/24/2021 2:00 PM CDT Temperature 36.4 ??C (97.6 ??F) 07/26/2018 2:12 PM CS T Respiratory Rate 18 12/24/2021 2:00 PM CDT Oxygen Saturation 97% 12/24/2021 2:00 PM CDT Inhaled Oxygen Concentration - - Weight 88.2 kg (194 lb 8 oz) 12/24/2021 2:00 PM CDT Height 182.9 cm (6') 12/24/2021 2:00 PM CDT Body Mass Index 26.38 12/24/2021 2:00 PM CDT Plan of Treatment Health Maintenance Due Date Last Done Comments Tdap 11/18/1956 Zoster (shingles) series for age 50+ (2 of 3) 07/14/2007 05/19/2007 Medicare Wellness for age 65+ 11/18/2008 Pneumococcal series for age 65+ (2 of 2 - PCV) 11/18/2008 04/08/2006, 01/24/1998 Tetanus booster 07/21/2017 07/21/2007, 02/10/1997 BMI (ht and wt on same day) for age 18+ 07/26/2019 07/26/2018 COVID-19 vaccine series ( season) 2023 11/14/2021, 04/10/2021, 09/04/2020, Additional history exists Depression screening for age 12+ 03/24/2023 03/24/20, 12/24/2021 Influenza for age 65+ 02/28/2024 05/01/2010 , 04/20/2008, 04/28/2007, Additional history exists Medical Devices Implanted Type Area Lining Presser Device Identifier Shelf Expiration Date Model / Serial / Lot Band Circling .[id number] [employer]ian - [id number] Implanted:Qty: 1 on 01/31/2009 at [facility] Left: Eye [employer] [id number]# / / [id number] Strip Silcn 1.25x4.5x100/2.5m mgroove [id number] Lab - [id number] Implanted:Qty: 1 on 01/31/2009 at [facility] Left: Eye [employer] [id number]# / / [id number] Sleeve Silcn 1.00i.D.X2.1mm Od [id number] [employer]ian - [id number] Implanted:Qty: 1 on 01/31/2009 at [facility] Left: Eye [employer] [id number]# / / [id number] Advance Directives * Full Code (Latest Code Status on File) Date Activated Date Inactivated Comments 01/31/2009 9:10 AM 01/31/2009 4:39 PM Care Teams Machine Stripper Cutter Relationship Specialty Start Date End Date Franc Arenas MD [address] [place], [place] [id number] PCP - General Internal Medicine 12/16/21
--- NOTE | 2024-01-07 14:04 | W.ANESCHARGE ---
Anesthesia Charges Start Date/Time Anesthesia Start Date: 01/07/24 Anesthesia Start Time: 13:35 Stop Date/Time Anesthesia Stop Date: 01/07/24 Anesthesia Stop Time: 14:07 Summary Extremes of Age - Over 70 or under 1: MDA
--- NOTE | 2024-01-07 14:05 | W.ANESCHARGE ---
Anesthesia Charges Start Date/Time Anesthesia Start Date: 01/07/24 Anesthesia Start Time: 13:35 Stop Date/Time Anesthesia Stop Date: 01/07/24 Anesthesia Stop Time: 14:07
== END 2024-01-07 12:54 | disposition home or self-care (01) ==
PROVIDERS: PCP Family Medicine; Visit Provider Internal Medicine
DX: Z12.11 Encounter for screening for malignant neoplasm of colon (principal); K57.30 Diverticulosis of large intestine without perforation or abscess without bleeding; Z86.010 Personal history of colon polyps
CPT/HCPCS: 00811; 00812; 45378; 99100; J2704

== ENCOUNTER 2024-09-01 12:14 | Outpatient (CLI) | payer MEDICARE, BC, SELFPAY | END 2024-09-01 12:15 | disposition home or self-care (01) | PROVIDERS: PCP Family Medicine; Visit Provider Family Medicine | DX: I10 Essential (primary) hypertension (principal); E78.2 Mixed hyperlipidemia; N18.31 Chronic kidney disease, stage 3a; Z12.5 Encounter for screening for malignant neoplasm of prostate | CPT/HCPCS: 80048; 80061; 84460; 85025; G0103 ==

== ENCOUNTER 2024-09-29 12:02 | Day surgery (SDC) | payer MEDICARE, BC, SELFPAY ==
[2024-09-29] VITALS (13 sets, daily range): BP systolic 83–136; BP diastolic 43–77; PULSE 46–75; RESP 14–16; TEMP 36.1–36.3; O2SAT 91–98; BMI 27.3
[2024-09-29] MEDS: LACTATED RINGERS 1000 ML 1,000 ML 100 ML IV ×2 (12:46→14:35)
[2024-09-29] MEDS: SODIUM CHLORIDE 0.9 % (FLUSH) 10 ML SYRINGE IVF (12:47)
[2024-09-29] MEDS: CEFAZOLIN 2 GM in 0.9 % SODIUM CHLORIDE Mini-bag 100 ML IVPB (13:58)
[2024-09-29] MEDS: BUPIVACAINE 0.25% 30 ML INJECTION (14:32)
--- NOTE | 2024-09-29 14:39 | P.ORPRC_ITS ---
Procedure Note Date of procedure: 09/29/24 Procedure: PREOPERATIVE DIAGNOSIS: Left knee medial meniscus tear POSTOPERATIVE DIAGNOSIS: Left knee medial meniscus tear NAME OF OPERATION: Left knee arthroscopic partial medial meniscectomy SURGEON: Mike Meadows MD LEAD ELECT[employer]ICAL [employer]OLS ENGINEER: Eugenia Darling PA-C ANESTHESIA: Spinal ESTIMATED BLOOD LOSS: 0 mL COMPLICATIONS: None SPECIMENS: None DRAINS: None PREOPERATIVE ANTIBIOTICS: Ancef 2 gram INDICATIONS: The patient is a 78-year-old with a history of left knee medial pain. MRI scan is consistent with a medial meniscus tear. Despite appropriate nonoperative management, including activity modification, antiinflammatories, [id number] pain medication, bracing, physical therapy, and injections they continue to have pain and disability. Operative intervention was offered. The risks, benefits and expected outcomes were discussed in detail. These included but were not limited to: Infection, bleeding, injury to blood vessel or nerve, venous thromboembolism. All questions were answered to their satisfaction. PROCEDURE: Spinal anesthesia was administered. The patient was placed supine on the operating room table. The left lower extremity was prepped and draped in the usual sterile fashion. The limb was exsanguinated with the Dieter bandage. The pneumatic tourniquet was inflated to 300 mmHg. A standard anterolateral portal was established. The arthroscope was introduced. The working portal was established anteromedially. Diagnostic arthroscopy was performed with findings as follows: The suprapatellar pouch is normal. Articular surface on the patella shows diffuse grade 1/2 change. Articular surface on the trochlea shows diffuse grade 1/2 change. The medial gutter is normal. The medial compartment shows diffuse grade 2/3 change on the medial femoral condyle, grade 1/2 change on the medial tibial plateau. The medial meniscus has a horizontal cleavage tear of the posterior horn, starting at the midbody. There is some leading edge degenerative tearing at the posterior root. The root is intact. The notch shows the ACL to be intact. The lateral compartment shows normal articular cartilage on the lateral femoral condyle and lateral tibial plateau. The lateral meniscus is normal. The lateral gutter is normal. The leading edge of the posterior horn and midbody of the medial meniscus was resected with basket. It did not require significant resection of the meniscus to get to the full depth of the horizontal cleavage tear. The new leading edge was then debrided with the shaver through both portals. Unstable chondral flaps on the medial femoral condyl were debrided with the shaver through both portals, taken to a stable base. Arthroscopic instruments were removed, the portal sites were Steri-Stripped closed, the knee was infiltrated with 30 mL of 0.25% Marcaine without epinephrine. A dry dressing was applied, the tourniquet was released. Sponge and needle counts were correct x 2. The patient tolerated the procedure well. There were no apparent complications. They were carefully transferred to the hospital bed and taken to the postanesthesia care unit in satisfactory condition. PLAN: The patient will be discharged to home. They may weightbear as tolerate s. Range of motion will be unrestricted. They will follow up in the office next week for a wound check.
--- NOTE | 2024-09-29 14:43 | P.ANES_ITS ---
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
--- NOTE | 2024-09-29 14:43 | W.ANESCHARGE ---
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
--- NOTE | 2024-09-29 17:06 | SUR.PHASEII ---
pt unable to void post op after spinal. Dr. Meadows notified, VO for bladder scan. scan showed 240cc's of urine, standing order states less than 300cc's out in 8 hours and patient did void large void at noon today. Pt educated on urinary retention post spinal and to report to ED if unable to void by 1999. Encouraged patient to continue to push fluids and electrolytes. Pt verbalized understanding.
== END 2024-09-29 17:09 | disposition home or self-care (01) ==
LOC: OR 12:03
PROVIDERS: PCP Family Medicine; Visit Provider Orthopaedic Surgery
PROC: (CPT 29870; principal; 2024-09-29 14:15)
DX: M23.222 Derangement of posterior horn of medial meniscus due to old tear or injury, left knee (principal); G89.18 Other acute postprocedural pain
CPT/HCPCS: 29881; 01400; 99100; J0665; J0690; J1100; J2250; J2405; J2704; J3010; J7120

== ENCOUNTER 2024-10-21 10:15 | Outpatient (RCR) | payer MEDICARE, BC, SELFPAY ==
--- NOTE | 2024-10-14 13:46 | PT.OPEX ---
PT [place] [facility] Eval PT [facility] Outpatient Eval Start: 10/14/24 10:59 Freq: Status: Active Protocol: Document 10/14/24 10:59 MRS (Rec: 10/14/24 12:33 MRS No Response) E-signed By Cheyenne Wolfe DPT Physical Therapy Outpatient Evaluation Insurance Information Recert Due Date 01/13/25 Insurance Name Blue Cross/Blue Shield Insurance Information/Comments Medicare/BCBS Medical Diagnosis S/P arthroscopic partial medial meniscectomy left knee Pain in Knee left M25.562 Pain in Knee right M25.561 Treating Diagnosis Pain in knee left M25.562 Pain in knee right M25.561 Referring MD Mike Meadows MD Subjective Subjective Pt presents s/p partial left medial meniscectomy with c/o knee pain that wakes him up 5- 6 times per night. Pt has been able to resume golfing and bowling without difficulty, but pain has persisted especially at night DOS: 09/29/24, partial medial meniscectomy Aggravating factors:?knee pain at night while sleeping; throbbing pain that wakes him up 5-6 times per night Alleviating factors:?being active, walking, squats, medication PMH:?CABG, cardiac stent, arthritis, allergies ( medication) Work status:?retired Pt goals:?Pain relief so he can sleep through the night [employer] access code:? [email or web address] Pain Comments 0/10 currently at rest; at worst 8-9/10. 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 -Knee Flx:?143/139 -Knee Ext:?-2/0 - HS length: ~75 degrees bilaterally Strength LE Strength (R/L):? -Knee Ext: R: 5/5, L: 4/5? -Knee Flex: R: 5/5, L: 4/5? -Hip Abd: R: 5/5, L: 4/5? -Hip Add: R: 5/5, L: 5/5? -Hip Ext: R: 4+/5, L: 4/5? -Hip Flx: R: 5/5, L: 4+/5? Ankle Strength (R/L):? -DF: R: 5/5, L: 5/5? -PF (uni heel raise): R: 10 reps, L: 10 reps? -Inv: R: 5/5, L: 5/5? -Kylee: R: 5/5, L: 5/5? Swelling circumfernce (R/L) 5 cm above jt line: 39.75 cm/ 41 cm jt line: 40.25 cm/40.25 5 cm below jt line: 36 cm/36. 25 Other/Pertinent Objective LE AROM (R/L):? -Knee Flx:?143/139 -Knee Ext:?-2/0 - HS length: ~75 degrees bilaterally Strength: -left knee, hip abd, hip ext= 4/5; hip flex= 4+/5 circumference (R/L) 5 cm above jt line: 39.75 cm/ 41 cm Functional Test Performed & Score LEFS= 75/80 Assessment Assessment/Impression Pt presents with signs and symptoms consistent with s/p left meniscectomy. DOS: 09/29/24 , pt was WBAT immediately after surgery and did not use AD. Since the surgery, the patient has been able to return to activities of golf and bowling but is having increased pain that wakes him up at night. Upon evaluation, decreased ROM of left knee compared to right as well as decreased strength of left knee and hip were found as well as swelling in left knee. Deficits/impairments include pain, ROM compared to right, and strength. Pt would benefit from skilled PT interventions to facilitate return to PLOF and decrease pain so patient can sleep through the night after activities of golfing and bowling.? Primary Functional Limitations pain, weakness, difficulty sleeping due to pain Plan of Care Rehabilitation Potential Good Physical Therapy Goals STG's to be met in 2-3: 1.) Pain will decrease to 6/10 or less at worst. 2.) Pt will be independent and compliant with HEP. LTG's to be met in 4-6 weeks: 1. Pt will report pain at 3/10 or less at worst. 2. Pt will demonstrate 5/5 strength MMT in glut max & glut med to improve dynamic control with SLS activities and gait.? 3. Pt will be able to walk up to or >1 mile without pain. 4. Pt will be able to sleep at night waking up 0-1 times due to pain. 5. Left knee swelling above joint line with decrease by 1 cm. Coordination/Communication With Referral Source Treatment Plan/Direct Interventions Ice/Cold/Vasopneumatic,Manual Therapy,Neuromuscular Re-ed, Therapeutic Activities, Therapeutic Exercises Frequency/Duration 1x/week for 4-6 weeks Patient Will Be Discharged From Therapy Completion of LTG(s),Skills Plateau,Independent w/HEP, Independently Progressing Evaluation Billing Untimed Code Treatment Minutes 30 PT Eval No Charge No Complexity Low Certification Information Initial Certification Date 10/14/24 Ending Certification Date 01/13/25 Provider Signature Required Yes Provider Signature Shows Agreement With POC & Medical Necessity Physician NPI Number Write NPI# Here Physician Comment/Change : Physician Signature & Date Requested Please Sign/Date Here
== END 2025-02-18 23:59 | disposition home or self-care (01) ==
PROVIDERS: PCP Family Medicine; Visit Provider Orthopaedic Surgery
DX: M25.561 Pain in right knee (principal); M25.562 Pain in left knee; G89.29 Other chronic pain; Z98.890 Other specified postprocedural states; Z87.828 Personal history of other (healed) physical injury and trauma; Z51.89 Encounter for other specified aftercare
CPT/HCPCS: 97110; 97161; 97535